=== PATIENT | male | born 1970 | race Caucasian/White ===

== ENCOUNTER 2023-02-27 08:48 | Outpatient (AMB) | payer OTHER, SELFPAY ==
--- NOTE | 2023-02-27 08:56 | MHC.OFFVIS ---
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 The patient did undergo low back surgery by Dr. Fernandes several years ago. The patient states that prior to that surgery he had weakness in his right leg. He states that the weakness on his right side did resolve following the surgery. Today he complains of progressively worsening left leg pain and weakness. His symptoms have gotten worse over the last year in spite of continued non operative treatments. He has done physical therapy which aggravated his symptoms. He has also tried Tylenol, anti-inflammatory medicines as well as a buprenorphine patch and oxycodone which gave him minimal relief. The patient states that he aggravated his leg and back earlier this year while playing soccer with his 18-year-old daughter. Allergies Penicillins Allergy (Verified 02/27/23 09:04) Unknown Medication List - Last Reconciled 02/27/23 by Mart Garcia MD albuterol sulfate 90 mcg/actuation 2 puffs inhalation Q4-6H PRN allopurinol mg PO buprenorphine 7.5 mcg/hour 1 patch transdermal QWEEK cholecalciferol (vitamin D3) PO fluticasone propion-salmeterol 500-50 mcg/dose (Wixela Inhub) inhalation losartan 100 mg PO DAILY montelukast 10 mg PO DAILY omeprazole 20 mg PO BID oxycodone 5 mg PO Q8H PRN sildenafil 100 mg PO DAILY PRN testosterone cypionate mg IM PFSH Medical History (Updated 02/27/23 @ 09:33 by Mart Garcia MD) Acid reflux Asthma Hypertension Lesion of throat Sleep apnea Social History (Updated 02/27/23 @ 09:10 by Raquel Nathan Abeba) Patient Tobacco Use Status: Never used Tobacco Current occupational status: disabled Physical Exam Vital Signs: BMI result Body Mass Index 45.8 Const Other: Well-nourished well-developed very friendly male awake alert and oriented x3 in no acute distress Back/Spine/Pelvis Other: Low back examination shows left-sided paraspinal muscle tenderness, pain with range of motion, positive straight leg raise test on the left at 70 degrees, 4/5 strength with testing of his left hip flexors and knee extensors when compared to 5/5 strength on his right side Extrem Other: Bilateral lower extremity examination shows good capillary refill, no skin lesions noted, normal sensation light touch Left knee examination shows a minimal effusion, minimal crepitus with range of motion, tenderness along his medial and lateral joint lines, no palpable defect over his hamstring insertions, positive Lenin's test Results Reviewed Results Reviewed: X-rays of the patient's lumbar spine taken today show mild to moderate diffuse degenerative disc disease, no acute bony abnormalities X-rays of the patient's left knee show mild joint space narrowing, no acute bony abnormalities Assessment & Plan Assessment & Plan (1) Low back pain: Code(s): M54.50 - Low back pain, unspecified Plan: Ms. Tracy presents with progressively worsening low back pain which radiates down his left leg possibly due to lumbar stenosis or a disc herniation. The patient states that he is not able to tolerate an MRI because of his sleep apnea. I will see whether not an upright MRI is available within driving distance. Otherwise we will likely proceed with a CT scan of his lumbar spine although the details will not be as good as an MRI. I will see the patient back following the imaging study to further discuss the findings and treatment options. The patient also has intermittent left knee pain possibly due to strain of his hamstrings tendons versus possible meniscus tearing. At this point the patient's knee pain is tolerable to him. We will address this further in the future if needed. Feel free to call me at any time should questions regarding his orthopedic management arise. Thank very much for asking me to see this very friendly gentleman. I spent 24 minutes in reviewing the patient's records and imaging studies, seeing the patient and documenting in the medical record. (2) Left knee pain: Code(s): M25.562 - Pain in left knee Plan Mr. Tracy I spent 22 minutes in reviewing the patient's records and imaging studies, seeing the patient and documenting in the medical record. Orders: Orders XR knee LT 3V Today M25.562 - Pain in left knee XR lumbar spine 2-3V Today M54.50 - Low back pain, unspecified Coding Level of Care Code New Pt Level 2 (77733) Diagnoses Low back pain M54.50 Left knee pain M25.562
[2023-02-27 09:04] VITALS: BMI 45.8
== END 2023-02-27 09:50 | disposition home or self-care (01) ==
PROVIDERS: Visit Provider Orthopaedic Surgery
DX: M54.50 Low back pain, unspecified (principal); M25.562 Pain in left knee
CPT/HCPCS: 99202

== ENCOUNTER 2023-02-27 08:48 | Outpatient (REF) | payer OTHER, SELFPAY ==
--- NOTE | ~2023-02-27 | XR_ITS ---
EXAMINATION: XR KNEE, LEFT CLINICAL INFORMATION: Left knee pain. COMPARISON: None available. TECHNIQUE: Three views of the left knee. FINDINGS: Alignment is anatomic. Joint spaces are maintained. No displaced fracture. No significant joint effusion. XR/XR knee LT 3V IMPRESSION: No acute abnormality.
--- NOTE | ~2023-02-27 | XR_ITS ---
EXAMINATION: XR LUMBOSACRAL SPINE CLINICAL INFORMATION: Low back pain. COMPARISON: None available. TECHNIQUE: Two views of the lumbosacral spine. FINDINGS: There are 5 nonrib-bearing lumbar vertebral bodies. Normal sagittal alignment. Vertebral body heights and intervertebral disc spaces are maintained. There is facet hypertrophy at L5-S1. Sacroiliac joints are intact. XR/XR lumbar spine 2-3V IMPRESSION: No acute abnormality.
== END 2023-02-27 08:49 | disposition home or self-care (01) ==
LOC: HO.HOSX 08:48
PROVIDERS: Visit Provider Orthopaedic Surgery
DX: M54.50 Low back pain, unspecified (principal); M25.562 Pain in left knee; M79.605 Pain in left leg; Z79.899 Other long term (current) drug therapy
CPT/HCPCS: 72100; 73562; 99202

== ENCOUNTER 2023-03-12 13:54 | Outpatient (REF) | payer OTHER, SELFPAY ==
--- NOTE | ~2023-03-12 | CT_ITS ---
EXAMINATION: CT LUMBAR SPINE WITHOUT CONTRAST CLINICAL INFORMATION: Low back pain COMPARISON: None TECHNIQUE: A multidetector CT acquisition of the lumbar spine is obtained without contrast. This CT examination was performed using dose optimization techniques as appropriate, variously including the following: *Automated exposure control *Adjustment of mA and/or kV according to patient size (this includes techniques or standardized protocols for targeted exams where dose is matched to indication/reason for exam; i.e. extremities or head) *Use of iterative reconstruction technique DLP: 1915 mGy-cm FINDINGS: Normal lumbar lordosis is preserved. Trace retrolisthesis at L3-L4. There is mild chronic anterior wedging of the T12 vertebral body. There is no suspicious osseous lesion. There is mild T11-T12 disc height loss. Lumbar intervertebral disc heights are preserved. Ossification to the left of midline of the L2 spinous process, presumably a nonunited secondary ossification center, less likely sequelae of prior trauma. Please not canal patency is not well assessed on this examination due to inherent limitations of CT without intrathecal contrast. Within these limitations, multilevel degenerative changes with level by level detail are as follows: T11-T12: Shallow annular disc bulge and advanced hypertrophic right greater than left facet arthrosis impinging upon the right dorsolateral thecal sac. No overt spinal canal narrowing. Moderate right and mild left neural foraminal narrowing with likely impingement upon the exiting right T11 nerve root. T12-L1: No spinal canal or neural foraminal stenosis. L1-L2: Mild bilateral facet arthrosis. No spinal canal or neural foraminal stenosis. L2-L3: Moderate bilateral facet arthrosis with ligamentum flavum thickening. No spinal canal stenosis. Minimal neural foraminal encroachment. L3-L4: Annular disc bulge with moderate bilateral facet arthrosis and ligamentum flavum thickening with incidental Mario ossicles, more pronounced on the left. Apparent mild spinal canal narrowing and subarticular zone stenosis. Moderate to severe left and moderate right neural foraminal stenosis with mass effect on the exiting left greater than right L3 nerve roots. L4-L5: Annular disc bulge with advanced hypertrophic bilateral facet arthrosis with bilateral periarticular ossification and vacuum disc phenomenon. Ossified synovial cyst along the anteroinferior margin of the left facet joint measuring 4 mm. At least mild spinal canal narrowing and bilateral subarticular zone stenosis. Moderate bilateral neural foraminal stenosis with mass effect along the bilateral exiting L4 nerve roots. L5-S1: Shallow annular disc bulge with superimposed suspected broad-based left paracentral/subarticular disc protrusion, and moderate bilateral facet arthrosis. At least mild spinal canal narrowing and asymmetric left subarticular zone stenosis with impingement on the traversing left S1 nerve root (image 333, series 6) and milder mass effect along the traversing right S1 nerve root. Minimal bilateral neural foraminal encroachment. No significant abnormalities of the paraspinal musculature. Limited evaluation of the intra-abdominal structures without significant abnormalities. Mild scattered calcific atherosclerotic disease. The abdominal aorta is of normal contour and caliber. Osseous spurring along the ventral sacroiliac joints with vacuum phenomenon. CT/CT lumbar spine wo IV con IMPRESSION: Multilevel lumbar spondylosis. Within the limitations of CT without intrathecal contrast, there is at least mild spinal canal narrowing from L3-L4 through L5-S1. Varying degrees of subarticular and neural foraminal stenosis with mass effect on the traversing and exiting nerve roots, as discussed above. Of note, there is impingement upon the traversing left S1 nerve root at L5-S1 and moderate to severe left neural foraminal stenosis at L3-L4 and moderate bilateral L4-L5 and right L3-L4 neural foraminal stenosis..
== END 2023-03-12 13:55 | disposition home or self-care (01) ==
LOC: HO.CT 13:54
PROVIDERS: PCP Family Medicine; Visit Provider Orthopaedic Surgery
DX: M47.816 Spondylosis without myelopathy or radiculopathy, lumbar region (principal); M54.50 Low back pain, unspecified; M79.606 Pain in leg, unspecified; M48.54XA Collapsed vertebra, not elsewhere classified, thoracic region, initial encounter for fracture
CPT/HCPCS: 72131

== ENCOUNTER 2024-04-06 09:33 | Outpatient (REF) | payer OTHER, SELFPAY ==
--- NOTE | ~2024-04-06 | XR_ITS ---
EXAMINATION: XR KNEE, LEFT CLINICAL INFORMATION: Left knee pain. COMPARISON: 02/27/2023. TECHNIQUE: Three views of the left knee. FINDINGS: Mild patellofemoral compartment osteoarthritis with small marginal osteophytes. Meniscal chondrocalcinosis. No fracture. No joint effusion. No significant change. XR/XR knee LT 3V IMPRESSION: Mild patellofemoral compartment osteoarthritis with meniscal chondrocalcinosis. No significant change. Electronically signed by: Gigi Alfred MD 04/12/2024 10:45 AM EDT
== END 2024-04-06 09:34 | disposition home or self-care (01) ==
LOC: HO.HOSX 09:33
PROVIDERS: Visit Provider Orthopaedic Surgery
DX: M17.12 Unilateral primary osteoarthritis, left knee (principal); M11.262 Other chondrocalcinosis, left knee
CPT/HCPCS: 20610; 73562; 99212; J1010

== ENCOUNTER 2024-04-06 10:11 | Outpatient (AMB) | payer OTHER, SELFPAY ==
--- NOTE | 2024-04-06 10:12 | MHC.OFFVIS ---
Vital Signs 04/06/24 10:15 Height 6 ft 1 in Weight 306 lb BMI 40.4 Intake Visit Reasons: OV left knee pain Intake Note: Patient is a 53 year old male who presents with complaints of progressively worsening left knee pain and giving way. The patient states that he injured his left knee approximately 2 years ago while playing in a [employer] soccer event. He was playing goalie and dove for a ball. He twisted his knee and had acute onset of pain along the medial aspect of his knee. Did have 1 cortisone injection given into his left knee several months ago which gave him only temporary relief. He has tried Tylenol and anti-inflammatory medicines which gave him minimal relief. He states that his left knee will give out several times per day. He has done physical therapy exercises which aggravated his pain. He has failed the last 6 weeks of conservative treatment. Allergies Penicillins Allergy (Verified 04/06/24 10:16) Unknown Medication List - Last Reconciled 04/06/24 by Mart Garcia MD albuterol sulfate 90 mcg/actuation 2 puffs inhalation Q4-6H PRN allopurinol mg PO buprenorphine 7.5 mcg/hour 1 patch transdermal QWEEK cholecalciferol (vitamin D3) PO fluticasone propion-salmeterol 500-50 mcg/dose (Wixela Inhub) inhalation losartan 100 mg PO DAILY montelukast 10 mg PO DAILY omeprazole 20 mg PO BID oxycodone 5 mg PO Q8H PRN sildenafil 100 mg PO DAILY PRN testosterone cypionate mg IM PFSH Medical History (Updated 03/04/23 @ 09:29 by Mart Garcia MD) Lesion of throat Hypertension Sleep apnea Acid reflux Asthma Social History (Updated 02/27/23 @ 09:10 by Raquel Nathan [facility]) Patient Tobacco Use Status: Never used Tobacco Current occupational status: disabled Physical Exam Vital Signs: BMI result Body Mass Index 40.4 Const Other: Well-nourished well-developed very friendly male awake alert and oriented x3 in no acute distress Extrem Other: Bilateral lower extremity examination shows good capillary refill, no skin lesions noted, normal sensation light touch Left knee examination shows a moderate effusion, minimal crepitus with range of motion, tenderness along his medial joint line, positive Lenin's test, no instability Office Procedures Joint Injection/Aspiration Joint Injection/Aspiration Primary Site: left knee Prep: site was prepped using aseptic technique Injected: 40 mg of, DepoMedrol and 1% plain lidocaine Procedure: The patient tolerated the procedure well Coding 04300 - Large joint Procedure code (CPT) selection complete Results Reviewed Results Reviewed: Standing full weight-bearing x-rays of the patient's left knee show mild diffuse joint space narrowing, no acute bony abnormalities Assessment & Plan Assessment & Plan (1) Left knee pain: Code(s): M25.562 - Pain in left knee Category: Medical Plan Mr. Tracy presents with progressively worsening left knee pain and swelling most likely due to a tear of his medial meniscus. I had a lengthy discussion with the patient regarding the treatment options. The risks and benefits of a left knee cortisone injection were discussed at length with the patient. The patient wished to proceed. Prior to the injection I aspirated 10 cc of clear fluid from his left knee. The patient tolerated the injection well. I will also send the patient for an MRI of his left knee to further evaluate the status of his medial meniscus. I will see him back once the MRI is completed to discuss the findings and treatment options. Feel free to call me at any time should questions regarding his orthopedic management arise. I spent 20 minutes in reviewing the patient's records and imaging studies, seeing the patient and documenting in the medical record. Orders: Orders XR knee LT 3V Today M25.562 - Pain in left knee MR knee LT wo con Today M25.562 - Pain in left knee AMB Joint Injection/Aspiration Today M25.562 - Pain in left knee Coding Level of Care Code Est Pt Level 3 (67652) Diagnoses Left knee pain M25.562 CPT Codes Coding - 46362 Large joint: 01537 - Large joint ([id number])
[2024-04-06 10:15] VITALS: BMI 40.4
== END 2024-04-06 10:40 | disposition home or self-care (01) ==
PROVIDERS: PCP Family Medicine; Visit Provider Orthopaedic Surgery
DX: M25.562 Pain in left knee (principal)
CPT/HCPCS: 20610; 99213

== ENCOUNTER 2024-05-10 09:10 | Outpatient (AMB) | payer OTHER, SELFPAY ==
[2024-05-10 09:11] VITALS: BMI 40.4
--- NOTE | 2024-05-10 09:11 | MHC.OFFVIS ---
Vital Signs 05/10/24 09:11 Height 6 ft 1 in Weight 306 lb BMI 40.4 Intake Visit Reasons: Left knee pain and giving way Intake Note: Patient is a 53 year old male who presents with complaints of progressively worsening left knee pain and giving way. The patient states that he injured his left knee approximately 2 years ago while playing in a [employer] soccer event. He was playing goalie and dove for a ball. He twisted his knee and had acute onset of pain along the medial aspect of his knee. Did have 1 cortisone injection given into his left knee several months ago which gave him only temporary relief. He has tried Tylenol and anti-inflammatory medicines which gave him minimal relief. He states that his left knee will give out several times per day. He has done physical therapy exercises which aggravated his pain. He has failed the last 6 weeks of conservative treatment. The patient states that he was not able to tolerate the MRI machine for his left knee MRI. Allergies Penicillins Allergy (Verified 04/06/24 10:16) Unknown Medication List - Last Reconciled 05/11/24 by Mart Garcia MD albuterol sulfate 90 mcg/actuation 2 puffs inhalation Q4-6H PRN allopurinol mg PO buprenorphine 7.5 mcg/hour 1 patch transdermal QWEEK cholecalciferol (vitamin D3) PO fluticasone propion-salmeterol 500-50 mcg/dose (Wixela Inhub) inhalation losartan 100 mg PO DAILY montelukast 10 mg PO DAILY omeprazole 20 mg PO BID oxycodone 5 mg PO Q8H PRN sildenafil 100 mg PO DAILY PRN testosterone cypionate mg IM PFSH Medical History Lesion of throat Hypertension Sleep apnea Acid reflux Asthma Social History Patient Tobacco Use Status: Never used Tobacco Current occupational status: disabled Physical Exam Vital Signs: BMI result Body Mass Index 40.4 Const Other: Well-nourished well-developed very friendly male awake alert and oriented x3 in no acute distress Extrem Other: Bilateral lower extremity examination shows good capillary refill, no skin lesions noted, normal sensation light touch Left knee examination shows a minimal effusion, mild crepitus with range of motion, tenderness along his medial and lateral joint lines, positive Lenin's test, no instability Results Reviewed Results Reviewed: Standing full weight-bearing x-rays of the patient's left knee show mild diffuse joint space narrowing, no acute bony abnormalities Assessment & Plan Assessment & Plan (1) Tear of medial meniscus of left knee: Code(s): S83.242A - Other tear of medial meniscus, current injury, left knee, initial encounter Category: Medical Plan Mr. Tracy presents with progressively worsening left knee pain and mechanical symptoms most likely due to tearing of his medial and lateral menisci. I had a lengthy discussion with the patient regarding the treatment options. At this point he has failed continued non operative treatments. The risks and benefits of left knee arthroscopic surgery were discussed at length with the patient. The patient wishes to proceed with surgery. Surgery will most likely involve left knee diagnostic arthroscopy with arthroscopic partial medial and lateral meniscectomies. The patient will be scheduled for next available date. He will follow-up as instructed. Feel free to call me at any time should questions regarding his orthopedic management arise. I spent 21 minutes in reviewing the patient's records and imaging studies, seeing the patient and documenting in the medical record. Coding Level of Care Code Est Pt Level 3 (58425) Complex EM visit Add On G2211 Diagnoses Tear of medial meniscus of left knee S83.242A
== END 2024-05-10 09:41 | disposition home or self-care (01) ==
PROVIDERS: PCP Family Medicine; Visit Provider Orthopaedic Surgery
DX: S83.242A Other tear of medial meniscus, current injury, left knee, initial encounter (principal)
CPT/HCPCS: 99213; G2211

== ENCOUNTER → 2024-05-10 09:10 | Outpatient (BNVA) | payer OTHER, SELFPAY | PROVIDERS: PCP Family Medicine; Visit Provider Orthopaedic Surgery | DX: S83.242A Other tear of medial meniscus, current injury, left knee, initial encounter (principal); X58.XXXA Exposure to other specified factors, initial encounter; Y93.9 Activity, unspecified; Y92.9 Unspecified place or not applicable; Y99.9 Unspecified external cause status | CPT/HCPCS: 99212 ==

== ENCOUNTER 2024-05-16 05:53 | Day surgery (SDC) | payer OTHER, SELFPAY ==
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
[2024-05-16] VITALS (12 sets, daily range): BP systolic 124–173; BP diastolic 67–98; PULSE 69–96; RESP 16; TEMP 36.6–37.2; O2SAT 96; BMI 43.6
[2024-05-16] MEDS: Lactated Ringers 1,000 ML 100 ML IVCONT (06:37)
--- NOTE | 2024-05-16 06:38 | ECG_ITS ---
Test Reason : BBB Blood Pressure : / mmHG Vent. Rate : 065 BPM Atrial Rate : 065 BPM P-R Int : 156 ms QRS Dur : 154 ms QT Int : 476 ms P-R-T Axes : 030 -08 134 degrees QTc Int : 495 ms Normal sinus rhythm Left bundle branch block Abnormal ECG No previous ECGs available Referred By: Alena Noel Electronically Signed By:JASWANT MARCIAL
[2024-05-16] MEDS: fentaNYL citrate/PF 100 MCG/2 ML VIAL 50 MCG IVPUSH ×3 (09:15→09:30)
--- NOTE | 2024-05-16 09:16 | PM.OP ---
Brief Operative Note Date of Service: 05/16/24 Pre-op diagnosis: Left knee medial meniscus tear, left knee degenerative joint disease Post-op diagnosis: same Procedure: Left knee diagnostic arthroscopy with left knee arthroscopic partial medial meniscectomy, left knee arthroscopic chondroplasty of the undersurface of the patella as well as the medial femoral condyle Implants: none Surgeon: Mart Garcia MD Anesthesia: GETA Was an Manager Customer Service used for this Procedure?: No Estimated blood loss (mL): 10 Pathology: none sent Condition: stable Disposition: PACU
--- NOTE | 2024-05-16 09:17 | P.OP_ITS ---
Operative Note Operative Note Date of Service: 05/16/24 Narrative: After the patient was identified as Donell Tracy and his left knee was initialed by myself they were brought to the operating room where general anesthesia was induced by the anesthesiologist in routine fashion. Because of the patient's allergy to penicillins he was given 900 mg of IV clindamycin preoperatively for infection prophylaxis. The patient's left lower extremity was prepped and draped in sterile fashion. A formal time-out was completed. Marcaine was injected into the planned incision sites as well as the patient's left knee joint. A #11 scalpel blade was used to make an anterolateral portal 1 cm proximal to the joint line and 1 cm lateral to the patellar tendon. Blunt trocar technique was used to enter the suprapatellar pouch with the knee in extension. Diagnostic arthroscopy showed multiple bands of thickened plica which would be excised at the end of the procedure. There were no loose bodies or abnormalities found in either the medial or lateral gutters. The articular surface of the patella showed diffuse grades 1 and 2 degenerative changes. The trochlear groove articular surface showed diffuse grade 1 degenerative changes. The patient's knee was flexed to 45 degrees and a valgus force was placed upon it. The medial compartment was entered. An anteromedial portal was made 1 cm proximal to the joint line and 1 cm medial to the patellar tendon. Probing of the medial meniscus showed a radial tear of the posterior horn. A partial medial meniscectomy was performed using the arthroscopic shaver. Following the partial meniscectomy the remainder of the meniscus tissue was stable. There were diffuse grades 1 and 2 degenerative changes of the medial femoral condyle as well as grade 1 degenerative changes of the medial tibial plateau. The articular surface of the medial femoral condyle was then made smooth using the arthroscopic shaver. The articular surface of the medial tibial plateau was already smooth so no chondroplasty was indicated. The patient's knee was placed into a neutral position. There was no injury to the anterior cruciate ligament. The patient's knee was then placed in the figure of 4 position and the lateral compartment was entered. There was no evidence of lateral meniscus tearing. There were minimal degenerative changes of the lateral femoral condyle and lateral tibial plateau. The patient's knee was once again brought into exte nsion and the suprapatellar pouch was entered. The arthroscopic shaver and the ArthroCare Wand were used to excise the thickened bands of plica. The undersurface of the patella was then made smooth using the arthroscopic shaver. The articular surface of the trochlear groove was already smooth so no chondroplasty was indicated. The knee joint was irrigated and then drained. All arthroscopic instruments were removed. The 2 portals were closed with 3-0 nylon interrupted suture. The knee joint was injected with Marcaine. Dry sterile dressing and Doron bandages were placed over the patient's knee. The patient was awoken and extubated in the operating room. The patient was transferred to the recovery room in stable condition.
== END 2024-05-16 10:57 | disposition home or self-care (01) ==
PROVIDERS: PCP Family Medicine; Visit Provider Orthopaedic Surgery
PROC: (CPT 29870; principal; 2024-05-16 07:30)
DX: S83.242A Other tear of medial meniscus, current injury, left knee, initial encounter (principal); M17.12 Unilateral primary osteoarthritis, left knee; M25.362 Other instability, left knee; M67.52 Plica syndrome, left knee; X50.1XXA Overexertion from prolonged static or awkward postures, initial encounter; Y93.66 Activity, soccer; Y92.322 Soccer field as the place of occurrence of the external cause; Y99.8 Other external cause status; I10 Essential (primary) hypertension; J45.909 Unspecified asthma, uncomplicated; G47.30 Sleep apnea, unspecified; J39.2 Other diseases of pharynx; Z79.51 Long term (current) use of inhaled steroids; Z79.899 Other long term (current) drug therapy; Z88.0 Allergy status to penicillin; Z98.890 Other specified postprocedural states
CPT/HCPCS: 29881; 93005; J0131; J0171; J0736; J1100; J1885; J2003; J2405; J2704; J2795; J3010

== ENCOUNTER → 2024-05-16 05:53 | Outpatient (BNV) | payer OTHER, SELFPAY | PROVIDERS: PCP Family Medicine; Visit Provider Orthopaedic Surgery | DX: S83.242A Other tear of medial meniscus, current injury, left knee, initial encounter (principal) | CPT/HCPCS: 29881 ==

== ENCOUNTER 2024-06-01 09:22 | Outpatient (AMB) | payer OTHER, SELFPAY ==
--- NOTE | 2024-06-01 09:23 | A.OFFVIS_ITS ---
Intake Visit Reasons: PO Left knee 05/16/24 DR Wilson Note: Donell is a 54 year old male who presents for his 1st postoperative appointment after undergoing left knee arthroscopic surgery on 05/16/2024. The patient reports mild intermittent discomfort in his left knee. He denies any fevers or chills. He continues with his home stretching program. Allergies Penicillins Allergy (Unknown, Verified 06/01/24 09:28) CHILDHOOD Medication List - Last Reconciled 06/02/24 by Mart Garcia MD albuterol sulfate 90 mcg/actuation 2 puffs inhalation Q4-6H PRN allopurinol 100 mg PO USEASDIRECTD cholecalciferol (vitamin D3) 2,000 mcg PO DAILY fluticasone propion-salmeterol 500-50 mcg/dose (Wixela Inhub) 1 inh inhalation DAILY losartan 100 mg PO DAILY montelukast 10 mg PO DAILY naproxen 500 mg PO BID omeprazole 20 mg PO BID oxycodone 5 mg PO Q6H PRN 1 week pregabalin 100 mg PO BID sildenafil 100 mg PO DAILY PRN PFSH Medical History Lesion of throat Hypertension Sleep apnea Acid reflux Asthma Surgical History History of surgery of head S/P nasal surgery H/O carpal tunnel repair H/O shoulder surgery H/O elbow surgery History of ankle surgery Social History Are you a primary customer care specialist to a significant other at home: No Do you presently have visiting nurse or other home services: No Patient Tobacco Use Status: Never used Tobacco Current occupational status: disabled Physical Exam Extrem Other: Left knee examination shows that the surgical incisions are well healed, no erythema, minimal discomfort with range of motion, no instability Assessment & Plan Assessment & Plan (1) Left knee pain: Code(s): M25.562 - Pain in left knee Category: Medical Plan Donell is doing very well after undergoing left knee arthroscopic surgery on 05/16/2024. His sutures were removed and Steri-Strips placed over his incisions. He will gradually progress to activities as tolerated. He will contact me prior to his follow-up appointment in 6-8 weeks should any questions or concerns arise. Feel free to call me at any time should questions regarding his orthopedic management arise. Coding Level of Care Code Global (79987) Diagnoses Left knee pain M25.562
== END 2024-06-01 09:44 | disposition home or self-care (01) ==
PROVIDERS: PCP Family Medicine; Visit Provider Orthopaedic Surgery
DX: M25.562 Pain in left knee (principal)
CPT/HCPCS: 99024

== ENCOUNTER → 2024-06-01 09:22 | Outpatient (BNVA) | payer OTHER, SELFPAY | PROVIDERS: PCP Family Medicine; Visit Provider Orthopaedic Surgery | DX: M25.562 Pain in left knee (principal) | CPT/HCPCS: 99212 ==

== ENCOUNTER 2024-08-18 09:39 | Outpatient (AMB) | payer OTHER, SELFPAY ==
--- NOTE | 2024-08-18 09:48 | A.OFFVIS_ITS ---
Intake Visit Reasons: Left knee pain Intake Note: Donell is a 54 year old male who presents with complaints of left knee pain. The patient describes his pain as sharp in nature. He did undergo left knee arthroscopic surgery last year. He got only mild relief from that procedure. He has failed the last 3 months of conservative treatment which has included Tylenol, anti-inflammatory medicines and physical therapy exercises. He has had multiple cortisone injections in the past. The most recent injection gave him minimal relief. The patient states that his left knee pain is now interfering with his activities of daily living and his ability to sleep well through the night. Allergies Penicillins Allergy (Unknown, Verified 08/18/24 09:49) CHILDHOOD Medication List - Last Reconciled 08/18/24 by Mart Garcia MD albuterol sulfate 90 mcg/actuation 2 puffs inhalation Q4-6H PRN allopurinol 100 mg PO USEASDIRECTD cholecalciferol (vitamin D3) 2,000 mcg PO DAILY fluticasone propion-salmeterol 500-50 mcg/dose (Wixela Inhub) 1 inh inhalation DAILY losartan 100 mg PO DAILY montelukast 10 mg PO DAILY naproxen 500 mg PO BID omeprazole 20 mg PO BID pregabalin 100 mg PO BID sildenafil 100 mg PO DAILY PRN PFSH Medical History Lesion of throat Hypertension Sleep apnea Acid reflux Asthma Surgical History History of surgery of head S/P nasal surgery H/O carpal tunnel repair H/O shoulder surgery H/O elbow surgery History of ankle surgery Social History Are you a primary career technical counselor to a significant other at home: No Do you presently have visiting nurse or other home services: No Patient Tobacco Use Status: Never used Tobacco Current occupational status: disabled Physical Exam Const Other: Well-nourished well-developed very friendly male awake alert and oriented x3 in no acute distress Extrem Other: Bilateral lower extremity examination shows good capillary refill, no skin lesions noted, normal sensation light touch Left knee examination shows a mild effusion, palpable crepitus with range of motion, pain with range of motion, no instability Results Reviewed Results Reviewed: X-rays of the patient's left knee show joint space narrowing, subchondral sclerosis, no acute bony abnormalities Assessment & Plan Assessment & Plan (1) Left knee pain: Code(s): M25.562 - Pain in left knee Category: Medical Plan Mr. Tracy presents with left knee pain due to osteoarthritis. I had a lengthy discussion with the patient regarding the treatment options. He wishes to hold off on total knee replacement surgery for as long as possible. I agree with this plan. He has not gotten good relief from cortisone injections in the past. Thus, I will see whether or not his insurance company will cover a viscosupplementation injection. I will see him back once the injection is available. Feel free to call me at any time should questions regarding his orthopedic management arise. I spent 20 minutes in reviewing the patient's records and imaging studies, seeing the patient and documenting in the medical record. Coding Level of Care Code Est Pt Level 3 (15163) Complex EM visit Add On G2211 Diagnoses Left knee pain M25.562
--- OUTSIDE RECORDS SUMMARY | 2024-08-18 09:55 | XMS_ITS | Encounter Summary ---
Author Name [facility] [place] [facility] [place] Address [address] [place] [address] Care Team Providers Care Mime Artist Name Role Phone EHSAN OVALLES Primary Care Provider Unavailabl e Insurance Providers: All historical and current Section Date Range: From patient's date of to the date document was created. This section includes the names of all active insurance providers for the patient. Insurance Provider Type of Coverage Plan Name Start of Policy Coverage End of Policy Coverage Group Number Member ID Insurance Provider's Telephone Number Policy Winston's Name Patient's Relationship to Policy Winston MEDICARE (WNR) MEDICARE (M) PART A December 08, 2013 PART A [id number] [facility] [phone] BRIGID RAMOS PATIENT MEDICARE (WNR) MEDICARE (M) PART A December 08, 2013 PART A [id number] GARRICK DAMICOKARLYBRIGID Rhina PATIENT Selected Encounter This section includes the information on record at [place] for the Encounter. Date/Time Encounter Type Encounter Description Reason Provider Source Jul 20, 2024 11:55 AM COLLJ & INTERPJ DATA EA 30 D TELEPHONE/MEDICIN E ICD-10-CM G47.30 Sleep apnea, unspecified KEN NGUYEN Martin Encounter Template Text not used by [place] Assessments - Encounter Diagnoses This section includes the primary and secondary diagnoses documented for the Encounter. Date/Time Primary/Secondary Diagnosis Diagnosis Name Provider Source Jul 20, 2024 11:55 AM PRIMARY Sleep apnea, unspecified KEN NGUYEN [facility] Plan of Treatment: Future Appointments (+ 6 months) and Future Tests (+/- 45 days) The Plan of Treatment section includes future care activities for the patient from [facility] [place] [facility]. This section includes future appointments and future orders which are active, pending or scheduled. Future Appointments This section includes appointments that were scheduled to occur 6 months from the date of the Encounter, up to a maximum of 20 appointments. The data comes from all [facility]. Appointment Date/Time Appointment Type Appointme nt Facility Name Jul 27, 2024 02:30 PM AMBULATORY - REHAB MEDICIN E [facility] Aug 30, 2024 11:00 AM AMBULATORY - MEDICINE [facility] Sep 14, 2024 01:00 PM AMBULATORY - REHAB MEDICIN E [facility] Active, Pending, and Scheduled Orders This section includes a listing of several types of active, pending, and scheduled orders, including clinic medications orders, diagnostic test orders, procedure orders and consult orders; where the start date of the order is 45 days before the date of the Encounter or 45 days after the date of theEncounter. The data comes from all [facility]. Test Date/Time Test Type Test Details Facility Name Jul 05, 2024 09:45 AM Consult Order COMMUNITY CARE-ACUPUNCTURE Cons Shipping Clerk [facility] Aug 31, 2024 12:00 AM Laboratory - Chemi stry Order LIPID PANEL FASTING BLOOD (SST-SERUM) [facility] Aug 31, 2024 12:00 AM Laboratory - Chemi stry Order LIVER FUNCTION BLOOD (SST-SERUM) [facility] Aug 31, 2024 12:00 AM Laboratory - Chemi stry Order BASIC METABOLIC PANEL (fasting) BLOOD (SST-SERUM) [facility] Social History: Smoking Status (Most current) and Tobacco Use (All prior to encounter date) This section includes the most current, and the historical, smoking and tobacco- related health factors from the [place] facility where the Encounter took place. Current Smoking Status This section includes the most current smoking, or tobacco-related health factor, from the [place] facility where the Encounter took place. Date/Time Current Smoking Status Comment Facil ity May 12, 2023 10:46 AM VA-TOBACCO NEVER USED [facility] Tobacco Use History This section includes a history of the smoking, or tobacco-related health factors, that were collected on or before the date of the Encounter. The data comes from the [place] facility where the Encounter took place. Date/Time Smoking Status/Tobacco Use Comment Trisha renae Oct 20, 2015 10:30 AM LIFETIME NON-TOBACCO USER [facility] Sep 19, 2009 11:13 AM LIFETIME NON-TOBACCO USER [facility] Advance Directives: All historical and current Section Date Range: From patient's date of to the date document was created. This section includes ALL of a patient's completed or amended [place] Advance and Rescinded Directives. The entries below indicate that a directive exists for the patient, but an actual copy is not included with this document. The data comes from all [place] facilities. Date Advance Directives Provider Source Mar 22, 2018 ADVANCE DIRECTIVE JASWANT DICKINSON [facility] Radiology Reports: +/- 30 days of the encounter Radiology Reports For cases when an order for radiology services may have been completed prior to the date of the Encounter, the report list includes the Radiology Reports that were completed up to 30 days before dateof the Encounter. For cases when an order for radiology services may have been completed after the date of the Encounter, the report list also includes the Radiology Reports that were completed up to30 days after date of the Encounter. The data comes from all [place] treatment facilities. Date/Time Radiology Report Provider Source Jul 27, 2024 02:52 PM FLUOROSCOPIC [place] NCE OF NEEDLE/SPINE: ODILIACOLBY [id number] -1970 M Exm Date: JUL 27, 2024@14:52 Req Phys: YAIR FALCON Loc: CWM/NO/MED REHAB/SPINE INJ (Re Img Loc: [facility]/BUILDING 1 Service: Unknown [place] [address] (Case 169 COMPLETE) FLUOROSCOPIC GUIDANCE OF NEEDLE/S(RAD Detailed) CPT:58277 Reason for Study: transforaminal epidural steroid injection Clinical History: Report Status: Verified Date Reported: JUL 27, 2024 Date Verified: JUL 27, 2024 [employer] E-Sig:/ES/GREG OLIVIER JR Report: Study: Pain injection of the lumbar spine. Findings: Fluoroscopic guidance was provided to Pain Management for interventional pain injection. No dictation provided for this study. Images captured for documentation only. Total fluoroscopy time used was 42.8 seconds. Total cumulative air kerma dose is 49.2 mGy. Impression: Fluoroscopic guidance for interventional pain injection. Primary Diagnostic Code: No immediate attention required Primary Interpreting Staff: GREG OLIVIER JR, Radiologist ([employer]) /GREG GAITAN JR [facility] Encounter Notes: All associated encounter notes This section contains the clinical notes associated to the Encounter. Date/Time Encounter Note(s) Provider Source Jul 20, 2024 11:55 AM SLEEP MEDICINE NOT E: LOCAL TITLE: CPAP CLINIC NOTE STANDARD TITLE: SLEEP MEDICINE NOTE DATE OF NOTE: JUL 20, 2024@11:55 ENTRY DATE: JUL 20, 2024@11:55:08 AUTHOR: KEN NGUYEN COSIGNER: URGENCY: STATUS: COMPLETED Patient diagnosed with sleep apnea data reviewed for Cpap renewal and supplies ordered from [facility]. [facility] uses the F30i FFM with the medium cushion. [employer] COMPLIANCE PROGRAM Patient APAP compliance data reviewed via the [employer] program for the last 90 days. SETTINGS: Apap 5 - [id number] TOTAL DAYS USED 89 DAYS USED > 4hrs 85 AVG USAGE 6 hours AVG PRESSURE [id number] LEAK 10 AHI: 0.3 Central 0 These results indicate [facility] is compliant. 's APAP Prescription will be renewed for 1 year. If pt has any questions or concerns regarding Apap, he/she can contact Respiratory at [phone] extension [phone]. /dheeraj/ KEN NGUYEN CRT RESPIRATORY THERAPIST Signed: 07/20/2024 12:06 KEN NGUYEN
--- OUTSIDE RECORDS SUMMARY | 2024-08-18 09:55 | XMS_ITS ---
Author Name [facility] [place] [facility] [place] [facility] [place] Address [address] [place] [address] Care Team Providers Care Braided Rug Maker Name Role Phone EHSAN OVALLES Primary Care [...] PART A December 08, 2013 PART A [id number] BRIGID RAMOS PATIENT MEDICARE (WNR) MEDICARE (M) PART A December 08, 2013 PART A [id number] [phone] BRIGID RAMOS PATIENT Selected Encounter This section includes the information on record at [place] for the Encounter. Date/Time Encounter Type Encounter Description Reason Pro vider Source Jul 20, 2024 08:22 AM Outpatient Encounter TELEPHONE PRIMARY CARE IHE Encounter Template Text not used by [place] Plan of Treatment: Future Appointments (+ 6 months) and Future Tests (+/- 45 days) The Plan of Treatment section includes future care activities for the patient from all [place] treatmentfacilities. This section includes future appointments and future orders which are active, pending or scheduled. Future Appointments This section includes appointments that were scheduled to occur 6 months from the date of the Encounter, up to a maximum of 20 appointments. The data comes from all [place] treatment facilities. Appointment Date/Time Appointment Type Appointme nt Facility Name Jul 27, 2024 02:30 PM AMBULATORY - REHAB MEDICIN E [facility] Aug 30, 2024 11:00 AM AMBULATORY - MEDICINE [facility] Sep 14, 2024 01:00 PM AMBULATORY - REHAB MEDICIN E [facility] Active, Pending, and Scheduled Orders This section includes a listing of several types of active, pending, and scheduled orders, including clinic medications orders, diagnostic test orders, procedure orders and consult orders; where the start date of the order is 45 days before the date of the Encounter or 45 days after the date of theEncounter. The data comes from all [facility]. Test Date/Time Test Type Test Details Facility Name Jul 05, 2024 09:45 AM Consult Order COMMUNITY CARE-ACUPUNCTURE Cons [employer]ber [facility] Aug 31, 2024 12:00 AM Laboratory - Chemi stry Order LIPID PANEL FASTING BLOOD (SST-SERUM) [facility] Aug 31, 2024 12:00 AM Laboratory - Chemi stry Order LIVER FUNCTION BLOOD (SST-SERUM) [facility] Aug 31, 2024 12:00 AM Laboratory - Chemi stry Order BASIC METABOLIC PANEL (fasting) BLOOD (SST-SERUM) [facility] Social History: Smoking Status (Most current) and Tobacco Use (All prior to encounter date) This section includes the most current, and the historical, smoking and tobacco- related health factors from the [place] facility where the Encounter took place. Current Smoking Status This section includes the most current smoking, or tobacco-related health factor, from the [place] facility where the Encounter took place. Date/Time Current Smoking Status Comment Facil ity May 12, 2023 10:46 AM VA-TOBACCO NEVER USED [facility] Tobacco Use History This section includes a history of the smoking, or tobacco-related health factors, that were collected on or before the date of the Encounter. The data comes from the [place] facility where the Encounter took place. Date/Time Smoking Status/Tobacco Use Comment F acility Oct 20, 2015 10:30 AM LIFETIME NON-TOBACCO USER [facility] Sep 19, 2009 11:13 AM LIFETIME NON-TOBACCO USER [facility] Advance Directives: All historical and current Section Date Range: From patient's date of to the date document was created. This section includes ALL of a patient's completed or amended [place] Advance and Rescinded Directives. The entries below indicate that a directive exists for the patient, but an actual copy is not included with this document. The data comes from all [place] facilities. Date Advance Directives Provider Source Mar 22, 2018 ADVANCE DIRECTIVE JASWANT DICKINSON [facility] Radiology Reports: +/- 30 days of [...] the Encounter. The data comes from all [place] treatment facilities. Date/Time Radiology Report Provider Source Jul 27, 2024 02:52 PM FLUOROSCOPIC [place] NCE OF NEEDLE/SPINE: ODILIACOLBY [id number] -1970 M Exm Date: JUL 27, 2024@14:52 Req Phys: FALCONYAIR BRYSON [facility] Loc: CWM/NO/MED REHAB/SPINE INJ (Re Img Loc: [facility]/BUILDING 1 Service: [place] [address] (Case 169 COMPLETE) FLUOROSCOPIC GUIDANCE OF NEEDLE/S(RAD Detailed) CPT:79005 Reason for Study: transforaminal epidural steroid injection Clinical History: Report Status: Verified Date Reported: JUL 27, 2024 Date Verified: JUL 27, 2024 Petroleum Geologist E-Sig:/ES/GREG OLIVIER JR Report: Study: Pain injection [...] Primary Interpreting Staff: GREG OLIVIER JR, Radiologist (Petroleum Geologist) /GREG GAITAN JR [facility] Encounter Notes: All associated encounter notes This section contains the clinical notes associated to the Encounter. Date/Time Encounter Note(s) Provider Source Jul 20, 2024 08:22 AM TELEPHONE ENCOUNTE R NOTE: LOCAL TITLE: TELEPHONE NOTE/SPECIALTY CLINIC STANDARD TITLE: TELEPHONE ENCOUNTER NOTE DATE OF NOTE: JUL 20, 2024@08:22 ENTRY DATE: JUL 20, 2024@08:22:06 AUTHOR: ROBERTO AVILA EXP COSIGNER: URGENCY: STATUS: COMPLETED [place] needs the following CPAP supplies mailed to his home address which has been confirmed as well as his primary phone: Hoses,masks,tanks and filters. /dheeraj/ ROBERTO AVILA ADVANCED VICE PRESIDENT OF COMPLIANCE Signed: 07/20/2024 08:30 Receipt Acknowledged By: 07/22/2024 07:07 /es/ HARMAN PETERS,TRACTOR EXPERT RESPIRATORY THERAPIST 07/21/2024 13:45 /es/ TERESA DAVILA RESPIRATORY THERAPIST 07/20/2024 11:54 /es/ KEN NGUYEN, HAND FORMER RESPIRATORY THERAPIST ROBERTO AVILA [facility]
--- OUTSIDE RECORDS SUMMARY | 2024-08-18 09:55 | XMS_ITS | Continuity of Care Document ---
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 [facility] [place] [facility] [address] [facility] [address] Performing Lab: [facility] [place] [facility] [address] [facility] [address] [facility] [place] [facility] AMPHETAMI BEATRIZ SCREEN PANEL CREATININE [MASS/VOLUM E] IN URINE 162.14 mg/dL 20 05/12 Specimen Type: URINE Comment: Urine with Cr <5 is diluted or substituted . Cr between 5 and 20 is very dilute. Urine with SG of 1.001 or less is diluted or substituted . SG of 1.003 or less is very dilute. Urine with a pH <3 or >11 has been adulterated and is unsuitable for testing by our current method. Urine with pH between 3 and 4 OR 10 and 11 may have been adulterated . Ordering Provider: LATRICE WILSON S Report Released Date/Time: May 11, 2024 03:52 PM Reporting Lab: [facility] [place] [facility] [address] [facility] [address] Performing Lab: [place] [facility] [place] [address] [address] [facility] [place] [facility] AMPHETAMI BEATRIZ SCREEN PANEL SPECIFIC GRAVITY OF URINE 1.021 1.003 - 1.020 05/12 H Specimen Type: URINE Comment: Urine with Cr <5 is diluted or substituted . Cr between 5 and 20 is very dilute. Urine with SG of 1.001 or less is diluted or substituted . SG of 1.003 or less is very dilute. Urine with a pH <3 or >11 has been adulterated and is unsuitable for testing by our current method. Urine with pH between 3 and 4 OR 10 and 11 may have been adulterated . Ordering Provider: LATRICE WILSON S Report Released Date/Time: May 11, 2024 03:52 PM Reporting Lab: [address] [address] Performing Lab: [address] [address] [facility] FENTANYL SCREEN PANEL FENTANYL [PRESENCE] IN URINE BY SCREEN METHOD NONE-D ETECTE Dng/mL 05/12 Specimen Type: URINE Comment: Urine with Cr <5 is diluted or substituted . Cr between 5 and 20 is very dilute. Urine with SG of 1.001 or less is diluted or substituted . SG of 1.003 or less is very dilute. Urine with a pH <3 or >11 has been adulterated and is unsuitable for testing by our current method. Urine with pH between 3 and 4 OR 10 and 11 may have been adulterated . FENTANYL CONFIRMATIO N NOT SENT BY LAB. Ordering Provider: LATRICE WILSON S Report Released Date/Time: May 11, 2024 03:52 PM Reporting Lab: [address] [address] Performing Lab: [address] [address] [facility] FENTANYL SCREEN PANEL PH OF URINE 5.6 [pH] 4 - 10 05/12 Specimen Type: URINE Comment: Urine with Cr <5 is diluted or substituted . Cr between 5 and 20 is very dilute. Urine with SG of 1.001 or less is diluted or substituted . SG of 1.003 or less is very dilute. Urine with a pH <3 or >11 has been adulterated and is unsuitable for testing by our current method. Urine with pH between 3 and 4 OR 10 and 11 may have been adulterated . FENTANYL CONFIRMATIO N NOT SENT BY LAB. Ordering Provider: LATRICE WILSON Report Released Date/Time: May 11, 2024 03:52 PM Reporting Lab: [address] [address] Performing Lab: [address] [address] [facility] FENTANYL SCREEN PANEL CREATININE [MASS/VOLUM E] IN URINE 156.70 mg/dL 05/12 Specimen Type: URINE Comment: Urine with Cr <5 is diluted or substituted . Cr between 5 and 20 is very dilute. Urine with SG of 1.001 or less is diluted or substituted . SG of 1.003 or less is very dilute. Urine with a pH <3 or >11 has been adulterated and is unsuitable for testing by our current method. Urine with pH between 3 and 4 OR 10 and 11 may have been adulterated . FENTANYL CONFIRMATIO N NOT SENT BY LAB. Ordering Provider: LATRICE WILSON Report Released Date/Time: May 11, 2024 03:52 PM Reporting Lab: [address] [address] Performing Lab: [address] [address] [facility] FENTANYL SCREEN PANEL SPECIFIC GRAVITY OF URINE 1.020 1.003 - 1.020 05/12 Specimen Type: URINE Comment: Urine with Cr <5 is diluted or substituted . Cr between 5 and 20 is very dilute. Urine with SG of 1.001 or less is diluted or substituted . SG of 1.003 or less is very dilute. Urine with a pH <3 or >11 has been adulterated and is unsuitable for testing by our current method. Urine with pH between 3 and 4 OR 10 and 11 may have been adulterated . FENTANYL CONFIRMATIO N NOT SENT BY LAB. Ordering Provider: LATRICE WILSON S Report Released Date/Time: May 11, 2024 03:52 PM Reporting Lab: [address] [address] Performing Lab: [address] [address] [facility] BENZODIAZ EPINES SCREEN PANEL BENZODIAZEP JOEL [PRESENCE] IN URINE BY SCREEN METHOD NONE-D ETECTE D - 200 05/12 Specimen Type: URINE Comment: Urine with Cr <5 is diluted or substituted . Cr between 5 and 20 is very dilute. Urine with SG of 1.001 or less is diluted or substituted . SG of 1.003 or less is very dilute. Urine with a pH <3 or >11 has been adulterated and is unsuitable for testing by our current method. Urine with pH between 3 and 4 OR 10 and 11 may have been adulterated . Ordering Provider: LATRICE WILSON S Report Released Date/Time: May 11, 2024 03:52 PM Reporting Lab: [address] [address] Performing Lab: [address] [address] [facility] BENZODIAZ EPINES SCREEN PANEL PH OF URINE 5.6 [pH] 4 - 10 05/12 Specimen Type: URINE Comment: Urine with Cr <5 is diluted or substituted . Cr between 5 and 20 is very dilute. Urine with SG of 1.001 or less is diluted or substituted . SG of 1.003 or less is very dilute. Urine with a pH <3 or >11 has been adulterated and is unsuitable for testing by our current method. Urine with pH between 3 and 4 OR 10 and 11 may have been adulterated . Ordering Provider: LATRICE WILSON S Report Released Date/Time: May 11, 2024 03:52 PM Reporting Lab: [address] [address] Performing Lab: [address] [address] [facility] BENZODIAZ EPINES SCREEN PANEL CREATININE [MASS/VOLUM E] IN URINE 162.14 mg/dL 20 05/12 Specimen Type: URINE Comment: Urine with Cr <5 is diluted or substituted . Cr between 5 and 20 is very dilute. Urine with SG of 1.001 or less is diluted or substituted . SG of 1.003 or less is very dilute. Urine with a pH <3 or >11 has been adulterated and is unsuitable for testing by our current method. Urine with pH between 3 and 4 OR 10 and 11 may have been adulterated . Ordering Provider: LATRICE WILSON Report Released Date/Time: May 11, 2024 03:52 PM Reporting Lab: [facility] HersN MASSVertica SystemsUSETS [address] [address] Performing Lab: [facility] HersGRE[facility]ST[facility] Perfect PriceUSE[address] [address] [facility]ITALUSE [facility] BENZODIAZ EPINES SCREEN PANEL SPECIFIC GRAVITY OF URINE 1.021 1.003 - 1.020 05/12 H Specimen Type: URINE Comment: Urine with Cr <5 is diluted or substituted . Cr between 5 and 20 is very dilute. Urine with SG of 1.001 or less is diluted or substituted . SG of 1.003 or less is very dilute. Urine with a pH <3 or >11 has been adulterated and is unsuitable for testing by our current method. Urine with pH between 3 and 4 OR 10 and 11 may have been adulterated . Ordering Provider: LATRICE WILSON Report Released Date/Time: May 11, 2024 03:52 PM Reporting Lab: [facility] [place] SystemsUS[place] [address] [address] Performing Lab: [facility]N Perfect PriceCHUSETS [address] [address] [facility]ITALUSE [facility] CANNABINO IDS SCREEN PANEL CANNABINOID S [PRESENCE] IN URINE BY SCREEN METHOD NONE-D ETECTE D - 50 05/12 Specimen Type: URINE Comment: Urine with Cr <5 is diluted or substituted . Cr between 5 and 20 is very dilute. Urine with SG of 1.001 or less is diluted or substituted . SG of 1.003 or less is very dilute. Urine with a pH <3 or >11 has been adulterated and is unsuitable for testing by our current method. Urine with pH between 3 and 4 OR 10 and 11 may have been adulterated . Ordering Provider: LATRICE WILSON S Report Released Date/Time: May 11, 2024 03:52 PM Reporting Lab: [place] [facility] [place] [place] [address] [address] Performing Lab: [place] [facility] [address] [address] [facility] [place] [facility] CANNABINO IDS SCREEN PANEL PH OF URINE 5.6 [pH] 4 - 10 05/12 Specimen Type: URINE Comment: Urine with Cr <5 is diluted or substituted . Cr between 5 and 20 is very dilute. Urine with SG of 1.001 or less is diluted or substituted . SG of 1.003 or less is very dilute. Urine with a pH <3 or >11 has been adulterated and is unsuitable for testing by our current method. Urine with pH between 3 and 4 OR 10 and 11 may have been adulterated . Ordering Provider: LATRICE WILSON S Report Released Date/Time: May 11, 2024 03:52 PM Reporting Lab: [facility] [place] [address] [address] Performing Lab: [facility]RL [place] [place] [address] [address] [facility]ITALUSE [facility] CANNABINO IDS SCREEN PANEL CREATININE [MASS/VOLUM E] IN URINE 162.14 mg/dL 05/12 Specimen Type: URINE Comment: Urine with Cr <5 is diluted or substituted . Cr between 5 and 20 is very dilute. Urine with SG of 1.001 or less is diluted or substituted . SG of 1.003 or less is very dilute. Urine with a pH <3 or >11 has been adulterated and is unsuitable for testing by our current method. Urine with pH between 3 and 4 OR 10 and 11 may have been adulterated . Ordering Provider: LATRICE WILSON S Report Released Date/Time: May 11, 2024 03:52 PM Reporting Lab: [facility] [place] [place] [address] [address] Performing Lab: [address] [address] [facility] CANNABINO IDS SCREEN PANEL SPECIFIC GRAVITY OF URINE 1.021 1.003 - 1.020 05/12 H Specimen Type: URINE Comment: Urine with Cr <5 is diluted or substituted . Cr between 5 and 20 is very dilute. Urine with SG of 1.001 or less is diluted or substituted . SG of 1.003 or less is very dilute. Urine with a pH <3 or >11 has been adulterated and is unsuitable for testing by our current method. Urine with pH between 3 and 4 OR 10 and 11 may have been adulterated . Ordering Provider: LATRICE WILSON Report Released Date/Time: May 11, 2024 03:52 PM Reporting Lab: [address] [address] Performing Lab: [address] [address] [facility] BUPRENORP MARY BETH SCREEN PANEL BUPRENORPHI NE [PRESENCE] IN URINE NONE-D ETECTE D 05/12 Specimen Type: URINE Comment: Urine with Cr <5 is diluted or substituted . Cr between 5 and 20 is very dilute. Urine with SG of 1.001 or less is diluted or substituted . SG of 1.003 or less is very dilute. Urine with a pH <3 or >11 has been adulterated and is unsuitable for testing by our current method. Urine with pH between 3 and 4 OR 10 and 11 may have been adulterated . Ordering Provider: LATRICE WILSON Report Released Date/Time: May 11, 2024 03:52 PM Reporting Lab: [address] [address] Performing Lab: [address] [address] [facility] BUPRENORP MARY BETH SCREEN PANEL PH OF URINE 5.6 [pH] 4 - 10 05/12 Specimen Type: URINE Comment: Urine with Cr <5 is diluted or substituted . Cr between 5 and 20 is very dilute. Urine with SG of 1.001 or less is diluted or substituted . SG of 1.003 or less is very dilute. Urine with a pH <3 or >11 has been adulterated and is unsuitable for testing by our current method. Urine with pH between 3 and 4 OR 10 and 11 may have been adulterated . Ordering Provider: LATRICE WILSON S Report Released Date/Time: May 11, 2024 03:52 PM Reporting Lab: [facility]ERRGADSD[facility]ENTERTRN [place] [address] [address] Performing Lab: [facility]RT[facility] MASSUSE[address] [address] [facility] [place] TS [facility] BUPRENORP MARY BETH SCREEN PANEL CREATININE [MASS/VOLUM E] IN URINE 162.14 mg/dL 05/12 Specimen Type: URINE Comment: Urine with Cr <5 is diluted or substituted . Cr between 5 and 20 is very dilute. Urine with SG of 1.001 or less is diluted or substituted . SG of 1.003 or less is very dilute. Urine with a pH <3 or >11 has been adulterated and is unsuitable for testing by our current method. Urine with pH between 3 and 4 OR 10 and 11 may have been adulterated . Ordering Provider: LATRICE WILSON Report Released Date/Time: May 11, 2024 03:52 PM Reporting Lab: [facility]ERR[facility] CENTERTRN [place] [address] [address] Performing Lab: [facility]N [facility]OSPITALUSE[address] [address] [facility]ITALUSE [facility] BUPRENORP MARY BETH SCREEN PANEL SPECIFIC GRAVITY OF URINE 1.021 1.003 - 1.020 05/12 H Specimen Type: URINE Comment: Urine with Cr <5 is diluted or substituted . Cr between 5 and 20 is very dilute. Urine with SG of 1.001 or less is diluted or substituted . SG of 1.003 or less is very dilute. Urine with a pH <3 or >11 has been adulterated and is unsuitable for testing by our current method. Urine with pH between 3 and 4 OR 10 and 11 may have been adulterated . Ordering Provider: LATRICE WILSON S Report Released Date/Time: May 11, 2024 03:52 PM Reporting Lab: [facility]ERR[facility]AD[facility] CENTERTRN [facility] HOSPITALUSETS [address] [address] Performing Lab: [facility]ERRGADSD[facility] CENTERTRN [facility]ITALUSE[address] [address] [facility] COCAINE SCREEN PANEL COCAINE [PRESENCE] IN URINE BY SCREEN METHOD NONE-D ETECTE D - 300 05/12 Specimen Type: URINE Comment: Urine with Cr <5 is diluted or substituted . Cr between 5 and 20 is very dilute. Urine with SG of 1.001 or less is diluted or substituted . SG of 1.003 or less is very dilute. Urine with a pH <3 or >11 has been adulterated and is unsuitable for testing by our current method. Urine with pH between 3 and 4 OR 10 and 11 may have been adulterated . Ordering Provider: LATRICE WILSON Report Released Date/Time: May 11, 2024 03:52 PM Reporting Lab: [facility]RL TRN [facility]ITALUSE[address] [address] Performing Lab: [facility]ENTERRL TRN [facility]ITALUSE[address] [address] [facility] COCAINE SCREEN PANEL PH OF URINE 5.6 [pH] 4 - 10 05/12 Specimen Type: URINE Comment: Urine with Cr <5 is diluted or substituted . Cr between 5 and 20 is very dilute. Urine with SG of 1.001 or less is diluted or substituted . SG of 1.003 or less is very dilute. Urine with a pH <3 or >11 has been adulterated and is unsuitable for testing by our current method. Urine with pH between 3 and 4 OR 10 and 11 may have been adulterated . Ordering Provider: LATRICE WILSON S Report Released Date/Time: May 11, 2024 03:52 PM Reporting Lab: [facility]ENTERRL TRN [facility] HOSPITALUSETS [address] [address] Performing Lab: [facility]RT[facility]ITALUSE[address] [address] [facility] COCAINE SCREEN PANEL CREATININE [MASS/VOLUM E] IN URINE 162.14 mg/dL 20 05/12 Specimen Type: URINE Comment: Urine with Cr <5 is diluted or substituted . Cr between 5 and 20 is very dilute. Urine with SG of 1.001 or less is diluted or substituted . SG of 1.003 or less is very dilute. Urine with a pH <3 or >11 has been adulterated and is unsuitable for testing by our current method. Urine with pH between 3 and 4 OR 10 and 11 may have been adulterated . Ordering Provider: LATRICE WILSON Report Released Date/Time: May 11, 2024 03:52 PM Reporting Lab: [address] [address] Performing Lab: [address] [address] [facility] COCAINE SCREEN PANEL SPECIFIC GRAVITY OF URINE 1.021 1.003 - 1.020 05/12 H Specimen Type: URINE Comment: Urine with Cr <5 is diluted or substituted . Cr between 5 and 20 is very dilute. Urine with SG of 1.001 or less is diluted or substituted . SG of 1.003 or less is very dilute. Urine with a pH <3 or >11 has been adulterated and is unsuitable for testing by our current method. Urine with pH between 3 and 4 OR 10 and 11 may have been adulterated . Ordering Provider: LATRICE WILSON Report Released Date/Time: May 11, 2024 03:52 PM Reporting Lab: [address] [address] Performing Lab: [address] [address] [facility] OPIATES SCREEN PANEL OPIATES [PRESENCE] IN URINE BY SCREEN METHOD NONE-D ETECTE D - 300 05/12 Specimen Type: URINE Comment: Urine with Cr <5 is diluted or substituted . Cr between 5 and 20 is very dilute. Urine with SG of 1.001 or less is diluted or substituted . SG of 1.003 or less is very dilute. Urine with a pH <3 or >11 has been adulterated and is unsuitable for testing by our current method. Urine with pH between 3 and 4 OR 10 and 11 may have been adulterated . Ordering Provider: LATRICE WILSON S Report Released Date/Time: May 11, 2024 03:52 PM Reporting Lab: [facility] [place] [facility] [address] [facility] [address] Performing Lab: [facility]ENTERRGADSD[facility] CENTERTRN [facility] HOSPITALUSETS [address] [address] [facility] OPIATES SCREEN PANEL PH OF URINE 5.6 [pH] 4 - 10 05/12 Specimen Type: URINE Comment: Urine with Cr <5 is diluted or substituted . Cr between 5 and 20 is very dilute. Urine with SG of 1.001 or less is diluted or substituted . SG of 1.003 or less is very dilute. Urine with a pH <3 or >11 has been adulterated and is unsuitable for testing by our current method. Urine with pH between 3 and 4 OR 10 and 11 may have been adulterated . Ordering Provider: LATRICE WILSON S Report Released Date/Time: May 11, 2024 03:52 PM Reporting Lab: [facility]RL TRN [place] [address] [address] Performing Lab: [facility]ERRGADSD[facility] CENTERTRN [facility] HOSPITALUSETS [address] [address] [facility] OPIATES SCREEN PANEL CREATININE [MASS/VOLUM E] IN URINE 162.14 mg/dL 05/12 Specimen Type: URINE Comment: Urine with Cr <5 is diluted or substituted . Cr between 5 and 20 is very dilute. Urine with SG of 1.001 or less is diluted or substituted . SG of 1.003 or less is very dilute. Urine with a pH <3 or >11 has been adulterated and is unsuitable for testing by our current method. Urine with pH between 3 and 4 OR 10 and 11 may have been adulterated . Ordering Provider: LATRICE WILSON S Report Released Date/Time: May 11, 2024 03:52 PM Reporting Lab: [facility]ERRGADSD[facility] CENTERTRN [facility]OSPITALUSETS [address] [address] Performing Lab: [facility]N [facility]OSPITALUSE[address] [address] [facility] OPIATES SCREEN PANEL SPECIFIC GRAVITY OF URINE 1.021 1.003 - 1.020 05/12 H Specimen Type: URINE Comment: Urine with Cr <5 is diluted or substituted . Cr between 5 and 20 is very dilute. Urine with SG of 1.001 or less is diluted or substituted . SG of 1.003 or less is very dilute. Urine with a pH <3 or >11 has been adulterated and is unsuitable for testing by our current method. Urine with pH between 3 and 4 OR 10 and 11 may have been adulterated . Ordering Provider: LATRICE WILSON Report Released Date/Time: May 11, 2024 03:52 PM Reporting Lab: [address] [address] Performing Lab: [address] [address] [facility] OXYCODONE SCREEN PANEL OXYCODONE [PRESENCE] IN URINE BY SCREEN METHOD NONE-D ETECTE D - 100 05/12 Specimen Type: URINE Comment: Urine with Cr <5 is diluted or substituted . Cr between 5 and 20 is very dilute. Urine with SG of 1.001 or less is diluted or substituted . SG of 1.003 or less is very dilute. Urine with a pH <3 or >11 has been adulterated and is unsuitable for testing by our current method. Urine with pH between 3 and 4 OR 10 and 11 may have been adulterated . Ordering Provider: LATRICE WILSON Report Released Date/Time: May 11, 2024 03:52 PM Reporting Lab: [address] [address] Performing Lab: [address] [address] [facility] OXYCODONE SCREEN PANEL PH OF URINE 5.6 [pH] 4 - 10 05/12 Specimen Type: URINE Comment: Urine with Cr <5 is diluted or substituted . Cr between 5 and 20 is very dilute. Urine with SG of 1.001 or less is diluted or substituted . SG of 1.003 or less is very dilute. Urine with a pH <3 or >11 has been adulterated and is unsuitable for testing by our current method. Urine with pH between 3 and 4 OR 10 and 11 may have been adulterated . Ordering Provider: LATRICE WILSON S Report Released Date/Time: May 11, 2024 03:52 PM Reporting Lab: [facility] [address] [address] Performing Lab: [facility] [address] [address] [facility] OXYCODONE SCREEN PANEL CREATININE [MASS/VOLUM E] IN URINE 162.14 mg/dL 05/12 Specimen Type: URINE Comment: Urine with Cr <5 is diluted or substituted . Cr between 5 and 20 is very dilute. Urine with SG of 1.001 or less is diluted or substituted . SG of 1.003 or less is very dilute. Urine with a pH <3 or >11 has been adulterated and is unsuitable for testing by our current method. Urine with pH between 3 and 4 OR 10 and 11 may have been adulterated . Ordering Provider: LATRICE WILSON S Report Released Date/Time: May 11, 2024 03:52 PM Reporting Lab: [facility] [address] [address] Performing Lab: [facility] [place] [address] [address] [facility] OXYCODONE SCREEN PANEL SPECIFIC GRAVITY OF URINE 1.021 1.003 - 1.020 05/12 H Specimen Type: URINE Comment: Urine with Cr <5 is diluted or substituted . Cr between 5 and 20 is very dilute. Urine with SG of 1.001 or less is diluted or substituted . SG of 1.003 or less is very dilute. Urine with a pH <3 or >11 has been adulterated and is unsuitable for testing by our current method. Urine with pH between 3 and 4 OR 10 and 11 may have been adulterated . Ordering Provider: LATRICE WILSON S Report Released Date/Time: May 11, 2024 03:52 PM Reporting Lab: [facility] [address] [facility] [address] Performing Lab: [facility] [address] [facility] [address] [facility] Vital Signs Combined list of inpatient and outpatient Vital Signs from Department of Defense and Veterans Affairs, ranging from 12 months to all on record, depending upon the facility. Vital Sign Value Date Comments Source SYSTOLIC BLOOD PRESSURE 150 07/27/20 24 14:31:42 [facility] DIASTOLIC BLOOD PRESSURE 100 024 14:31:42 [facility] PULSE OXIMETRY 97 07/27/2024 14:31:42 [facility] PAIN 7 07/27/2024 14:31:42 [facility] PULSE 93 07/27/2024 14:31:42 [facility] RESPIRATION 18 07/27/2024 14:31:42 [facility] SYSTOLIC BLOOD PRESSURE 147 05/31/20 24 11:47:41 [facility] DIASTOLIC BLOOD PRESSURE 101 024 11:47:41 [facility] PULSE OXIMETRY 97 05/31/2024 11:47:41 [facility] WEIGHT 328.2 05/31/2024 11:47:41 [facility] BMI 43kg/m2 05/31/2024 11:47:41 [facility] PAIN 0 05/31/2024 11:47:41 [facility] HEIGHT 73 05/31/2024 11:47:41 [facility] TEMPERATURE 97.4 05/31/2024 11:47:41 [facility] PULSE 77 05/31/2024 11:47:41 [facility] RESPIRATION 16 05/31/2024 11:47:41 [facility] SYSTOLIC BLOOD PRESSURE 143 02/25/20 24 13:18:53 [facility] DIASTOLIC BLOOD PRESSURE 88 024 13:18:53 [facility] PULSE OXIMETRY 95 02/25/2024 13:18:53 [facility] WEIGHT 322.4 02/25/2024 13:18:53 [facility] BMI 44kg/m2 02/25/2024 13:18:53 [facility] PAIN 7 02/25/2024 13:18:53 [facility] TEMPERATURE 98 02/25/2024 13:18:53 [facility] PULSE 59 02/25/2024 13:18:53 [facility] RESPIRATION 18 02/25/2024 13:18:53 [facility] SYSTOLIC BLOOD PRESSURE 140 01/05/20 24 13:07:34 [facility] DIASTOLIC BLOOD PRESSURE 88 024 13:07:34 [facility] PULSE OXIMETRY 95 01/05/2024 13:07:34 [facility] WEIGHT 317 01/05/2024 13:07:34 [facility] BMI 43kg/m2 01/05/2024 13:07:34 [facility] PAIN 8 01/05/2024 13:07:34 [facility] PULSE 73 01/05/2024 13:07:34 [facility] RESPIRATION 24 01/05/2024 13:07:34 [facility] SYSTOLIC BLOOD PRESSURE 159 11/11/19 24 10:11:03 [facility] DIASTOLIC BLOOD PRESSURE 87 04/03/2 024 10:11:03 [facility] PULSE OXIMETRY 95 11/11/2023 10:11:03 [facility] WEIGHT 316.8 11/11/2023 10:11:03 [facility] BMI 43kg/m2 11/11/2023 10:11:03 [facility] PAIN 0 11/11/2023 10:11:03 [facility] HEIGHT 72 11/11/2023 10:11:03 [facility] TEMPERATURE 97.6 11/11/2023 10:11:03 [facility] PULSE 74 11/11/2023 10:11:03 [facility] RESPIRATION 16 11/11/2023 10:11:03 [facility] Encounters Combined list of: 1) Encounters from Department of Veterans Affairs facilities going back up to thelast 18 months. 2) Encounters from the Department of Defense facilities going back up to 280 months. Location Location Details Encounter Type Encounter Number Reason For Visit Attending Provider ADM Date DC Date Status Disposition Source [facility] COLLJ & INTERPJ DATA EA 30 D [id number] Diagnos is: ICD-10- CM G47.30 Sleep apnea, unspeci fied
RICHY NGUYEN 02/18 [facility] En[facility] [id number] 02/27 [facility] Encounter [id number] 03/02 [facility]counter [id number] 03/05 [facility] Encounter [id number] 03/09 [facility] OFFICE O/P EST MOD 30-39 MIN [id number] Diagnos is: ICD-10- CM M25.562 Pain in left knee
NICKI TIPTON S 03/10 [facility] En[facility] [id number] 03/10 [facility] OFFICE O/P EST HI 40-54 MIN [id number] Diagnos is: ICD-10- CM M25.562 Pain in left knee
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
CHRISTINE KHAN 04/08 [place] [facility] Out[facility] Encounter [id number] 04/09 [facility] Encounter [id number] 04/14 [facility] Out[facility] Encounter [id number] 04/16 [facility] Encounter [id number] 04/[address] [facility]P EST MOD 30-39 MIN [id number] Diagnos is: ICD-10- CM I10 Essenti al (primar y) hyperte nsion<b r/> RONNIE OVALLES 05/12 [place] [facility] IMMUNIZATI ON ADMIN EACH ADD [id number] RONNIE OVALLES 05/12 [facility] Out[facility] Encounter [id number] 05/13 [facility] Out[facility] Encounter [id number] 05/13 [facility] OFFICE O/P EST MOD 30-39 MIN [id number] Diagnos is: ICD-10- CM M54.50 Low back pain, unspeci fied
CUTGREGGNICKI LAWANDA S 05/14 [facility] Out[facility] Encounter [id number] 05/21 [facility] POS AIRWAY PRESSURE CPAP [id number] Diagnos is: ICD-10- CM G47.30 Sleep apnea, unspeci fied
RICHY NGUYEN 05/22 [facility] Out[facility] Encounter [id number] Diagnos is: ICD-10- CM M54.50 Low back pain, unspeci fied
CUTNICKI ESCOBEDO S 06/18 [facility] Out[facility] Encounter [id number] BENEDICT GILMORE 06/25 [facility] Out[facility] Encounter [id number] BENEDICT GILMORE 06/25 [facility] Out[facility] Encounter [id number] TEPBENEDICT 06/25 [facility] Out[facility] Encounter [id number] 06/30 [facility] Out[facility] Encounter [id number] 06/30 [facility] Out[facility] Encounter [id number] 07/13 [facility] OFFICE O/P EST MOD 30-39 MIN [id number] Diagnos is: ICD-10- CM M54.50 Low back pain, unspeci fied
NICKI TIPTON 07/14 [facility] Out[facility] Encounter [id number] 07/16 [facility] Out[facility] Encounter [id number] 07/16 [facility] Out[facility] Encounter [id number] 07/24 [facility] OFFICE O/P EST HI 40-54 MIN [id number] Diagnos is: ICD-10- CM M25.562 Pain in left knee
NICKI TIPTON S 07/28 [facility] OFFICE O/P EST LOW 20-29 MIN [id number] Diagnos is: ICD-10- CM M54.50 Low back pain, unspeci fied
RONNIE OVALLES 07/31 [place] [facility] Out[facility] Encounter [id number] 08/12 [facility] Out[facility] Encounter [id number] LIS DUGGAN 08/13 [facility] OFFICE O/P EST MOD 30 MIN [id number] Diagnos is: ICD-10- CM M54.50 Low back pain, unspeci fied
NICKI TIPTON S 08/13 [facility] Encounter [id number] LIS DUGGAN 08/14 [facility] Out[facility] Encounter [id number] 08/20 [facility] Out[facility] Encounter [id number] 08/21 [facility] Out[facility] Encounter [id number] 08/26 [facility] Out[facility] Encounter [id number] NICKI TIPTON S 09/08 [facility] Out[facility] Encounter [id number] NICKI TIPTON S 09/08 [facility] Outpatient Encounter [id number] Diagnos is: ICD-10- CM M54.50 Low back pain, unspeci fied
NICKI TIPTON S 09/08 [facility] Out[facility] Encounter [id number] 09/15 [facility] OFFICE O/P EST MOD 30 MIN [id number] Diagnos is: ICD-10- CM M54.50 Low back pain, unspeci fied
NICKI TIPTON S 09/16 [facility] OFFICE O/P NEW HI 60 MIN [id number] Diagnos is: ICD-10- CM M54.50 Low back pain, unspeci fied
Juan Diego PITTS 09/17 [facility] En[facility] [id number] 09/25 [facility] Out[facility] Encounter [id number] 09/25 [facility] OFFICE O/P EST HI 40 MIN [id number] Diagnos is: ICD-10- CM G89.29 Other chronic pain
KUPFERSCHM ID,JARAD B 09/29 [facility] OFFICE O/P [place] HI 40 MIN [id number] Diagnos is: ICD-10- CM M54.16 Radicul opathy, lumbar region< br/> YAIR FALCON THI 09/30 [facility] Out[facility] Encounter [id number] 09/30 [facility] Out[facility] Encounter [id number] 10/20 [facility] Out[facility] Encounter [id number] 10/28 [facility] Out[facility] Encounter [id number] 10/28 [facility] Out[facility] Encounter [id number] 10/28 [facility] Out[facility] Encounter [id number] 10/29 [facility] Out[facility] Encounter [id number] 10/29 [facility] Out[facility] Encounter [id number] 11/02 [facility] Out[facility] Encounter [id number] 11/03 [facility] OFFICE O/P EST LOW 20 MIN [id number] Diagnos is: ICD-10- CM M25.562 Pain in left knee
Juan Diego PITTS 11/04 [facility] OFFICE O/P EST LOW 20 MIN [id number] Diagnos is: ICD-10- CM I10 Essenti al (primar y) hyperte nsion<b r/> RONNIE OVALLES 11/10 [facility] Outpatient Encounter [id number] 11/22 [facility] OFFICE O/P EST MOD 30 MIN [id number] Diagnos is: ICD-10- CM M54.50 Low back pain, unspeci fied
NICKI TIPTON 11/23 [facility] Outpatient Encounter [id number] 11/24 [facility] Outpatient Encounter [id number] Silvestre VALLECILLO 11/24 [facility] Outpatient Encounter [id number] 11/24 [facility] SELF CARE MNGMENT TRAINING [id number] Diagnos is: ICD-10- CM 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
NORI MCDONALD RONI 12/07 [facility] Outpatient Encounter [id number] Diagnos is: ICD-10- CM M54.50 Low back pain, unspeci fied
NICKI TIPTON 12/22 [facility] OFFICE O/P EST MOD 30 MIN [id number] Diagnos is: ICD-10- CM M25.562 Pain in left knee
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
MCDONALD, NORI RONI 01/14 [place] [facility] Out[facility] Encounter [id number] 02/07 [facility] Out[facility] Encounter [id number] 02/08 [facility] Outpatient Encounter [id number] 02/14 [facility] OFFICE O/P EST LOW 20 MIN [id number] Diagnos is: ICD-10- CM M25.562 Pain in left knee
Juan Diego PITTS 02/24 [facility] Out[facility] Encounter [id number] RA QUIN CERNA 03/01 [facility] MTMS BY PHARM GRAPHIC ARTIST 15 MIN [id number] Diagnos is: ICD-10- CM M25.562 Pain in left knee
BENEDICT GILMORE 03/01 [facility] COMPRE OPH EXAM EST PT 1/> [id number] Diagnos is: ICD-10- CM Z87.820 Persona l history of traumat ic brain injury< br/> AMARJIT ARRIAGA 03/21 [facility] FIT SPECTACLES BIFOCAL [id number] Diagnos is: ICD-10- CM Z46.0 Encount er for fit/adj st of spectac les and contact lenses< br/> CORINA,AMARJIT H B 03/21 [facility] Outpatient Encounter [id number] 03/23 [facility] OFFICE O/P EST MOD 30 MIN [id number] Diagnos is: ICD-10- CM M25.562 Pain in left knee
NICKI TIPTONM Silvestre 03/24 [facility] Out[facility] Encounter [id number] 04/06 [facility] Outpatient Encounter [id number]/04 [facility] Outpatient Encounter [id number] 05/04 [facility] Out[facility] Encounter [id number] 05/09 [facility]counter [id number] 05/10 [facility]counter [id number] 05/16 [facility] [id number] 1.05/16 [facility] [id number] 1.05/17 [facility] Outpatient Encounter [id number] 1.05/20 [facility] OFFICE O/P EST MOD 30 MIN [id number] Diagnos is: ICD-10- CM I10 Essenti al (primar y) hyperte nsion<b r/> RONNIE OVALLES 05/31 [facility] ELECTROCAR DIOGRAM REPORT [id number] Diagnos is: ICD-10- CM Z13.6 Encount er for screeni ng for cardiov ascular disorde rs
PRAKASH MURRY 05/31 [place] [facility] Outpatient Encounter [id number] [facility] TTE W/DOPPLER COMPLETE [id number] Diagnos is: ICD-10- CM I44.7 Left bundle- branch block, unspeci fied
DANISHA FLOREZ 06/07 [facility] OFF/OP CNSLTJ NEW/EST MOD 40 [id number] Diagnos is: ICD-10- CM I44.7 Left bundle- branch block, unspeci fied
JOHN CLAYTON 06/09 [place] [facility] Outpatient Encounter [id number] 06/21 [facility] Outpatient Encounter [id number] 1.06/29 [facility] Outpatient Encounter [id number] 07/05 [facility] [id number] 1.07/06 [facility] En[facility] [id number] 1.07/06 [facility]counter [id number] 1. MARCIE DOSS OLAS 07/18 [facility] En[facility] [id number] 07/18 [facility] Encounter [id number] 07/20 [facility] COLLJ & INTERPJ DATA EA 30 D [id number] 1. Diagnos is: ICD-10- CM G47.30 Sleep apnea, unspeci fied
RICHY NGUYEN 07/20 [facility] Encounter [id number] 1. MARCIE DOSS OLAS 07/20 [facility] Encounter [id number] 1.07/20 [facility] OFFICE O/P EST HI 40 MIN [id number] . Diagnos is: ICD-10- CM M54.16 Radicul opathy, lumbar region< br/> YAIR FALCON 07/27 [facility] En[facility] [id number] 07[facility] Procedures Combined list of: 1) Procedures from [facility] Veterans Affairs facilities going back up to thelast 18 months, not all [place] non-surgical procedures are included; 2) All procedures from the Department of Defense facilities. Procedure Procedure Type Code Date Perfomer Comments Sourc e SCREENING TEST, PURE TONE, AIR ONLY 08/15/2004 [facility] SALINE SOLUTION, PER 10 ML, METERED DOSE DISPENSER, FOR USE WITH INHALATION DRUGS 05/19/2003 [facility] PSYCHIATRIC DIAGNOSTIC INTERVIEW EXAMINATION 04/24/2003 [facility] Social History Combined list of available smoking, tobacco, and other social history from Department of Defense and Veterans Affairs facilities. Social History Type Response Date Comment Sourc e Tobacco smoking status NHIS [facility]-TOBACCO NEVER USED 05/31/2024 [facility] [place] of [place] use [place]20[facility] [place] of tobacco use [place] USED 05/26/2022 [facility] History of tobacco use [place]-TOBACCO NEVER USED 05/21/2021 [facility] History of tobacco use VA-TOBACCO NEVER USED 08/08/2019 [facility] History of tobacco use VA-TOBACCO NEVER USED 06/28/2018 [facility] History of tobacco use LIFETIME NON-TOBACCO USER 05/28/2017 [place] History of tobacco use LIFETIME NON-TOBACCO USER 10/20/2015 [facility] History of tobacco use LIFETIME NON-TOBACCO USER 09/19/2009 [facility] History of tobacco use LIFETIME NON-USER OF TOBACCO 10/27/2006 [place] History of tobacco use LIFETIME NON-SMOKER/TOBACCO USER 08/21/2004 [facility] This section is an empty social history section. [facility] Plan of Care List of future care activities from [facility] facilities. Additional future care activities may be listed in the Assessment and Plan section. Date/Time Care Activity Care Activity Detail Facili ty 08/30/2024 AMBULATORY - MEDICINE AM[facility]ORY [facility]ICI [facility] 09/14/2024 AMBULATORY - REHAB MEDICINE [facility] 07/05/2024 Consult Order COMMUNITY CARE-ACUPUNCTURE Cons Director Of Teenage Activities's Choice [facility] 08/31/2024 Laboratory - Hollow Tile Partition Erector ry Order LIPID PANEL FASTING BLOOD (SST-SERUM) [facility] 08/31/2024 Laboratory - Hollow Tile Partition Erector ry Order LIVER FUNCTION BLOOD (SST-SERUM) [facility] 08/31/2024 Laboratory - Hollow Tile Partition Erector ry Order BASIC METABOLIC PANEL (fasting) BLOOD (SST-SERUM) [facility] Advance Directives List of completed, amended, or rescinded Advance Directives on record at Department of [facility] facilities. An actual copy of the Directive is not included. Date Advance Directive Provider Source 03/22/2018 ADVANCE DIRECTIVE JASWANT DICKINSON [facility]
--- OUTSIDE RECORDS SUMMARY | 2024-08-18 09:55 | XMS_ITS ---
Author Name [facility] [place] Organization [place] Address [address] [place] [address] Care Team Providers Care Track Broom Operator Name Role Phone EHSAN OVALLES Primary Care [...] PART A December 08, 2013 PART A [id number] 62A BRIGID RAMOS PATIENT MEDICARE (WNR) MEDICARE (M) PART A December 08, 2013 PART A [id number] 62A BRIGID RAMOS PATIENT Selected Encounter This section includes the information on record at [place] for the Encounter. Date/Time Encounter Type Encounter Description Reason Pro vider Source Jul 18, 2024 11:03 AM Outpatient Encounter PRIMARY CARE/MEDICINE IHE Encounter Template Text not used by [place] Plan of Treatment: Future Appointments (+ 6 months) and Future Tests (+/- 45 days) The Plan of Treatment section includes future care activities for the patient from all [facility] treatment[facility]ilities. This section includes future appointments and [...] 02:30 PM AMBULATORY - REHAB MEDICIN E [facility] Aug 30, 2024 11:00 AM AMBULATORY - MEDICINE [facility] Sep 14, 2024 01:00 PM AMBULATORY - REHAB MEDICIN E [facility] Active, Pending, and Scheduled Orders This section includes a listing of several types of active, pending, and scheduled orders, including clinic medications orders, diagnostic test orders, procedure orders and consult orders; where the start date of the order is 45 days before the date of the Encounter or 45 days after the date of theEncounter. The data comes from all [facility]. Test Date/Time Test Type Test Details Facility Name Jul 05, 2024 09:45 AM Consult Order COMMUNITY CARE-ACUPUNCTURE Cons Manager Of Financial Reporting's Choice [facility] Aug 31, 2024 12:00 AM Laboratory - Chemi stry Order LIPID PANEL FASTING BLOOD (SST-SERUM) [facility] Aug 31, 2024 12:00 AM Laboratory - Chemi stry Order LIVER FUNCTION BLOOD (SST-SERUM) [facility] Aug 31, 2024 12:00 AM Laboratory - Chemi stry Order BASIC METABOLIC PANEL (fasting) BLOOD (SST-SERUM) [facility] Social History: Smoking Status (Most current) and Tobacco Use (All prior to encounter date) This section includes the most current, and the historical, smoking and tobacco- related health factors from the [place] facility where the Encounter took place. Current Smoking Status This section includes the most current smoking, or tobacco-related health factor, from the [place] facility where the Encounter took place. Date/Time Current Smoking Status Comment Facil ity May 12, 2023 10:46 AM [place]-TOBACCO NEVER USED [facility] Tobacco Use History This section includes a history of the smoking, or tobacco-related health factors, that were collected on or before the date of the Encounter. The data comes from the [place] facility where the Encounter took place. Date/Time Smoking Status/Tobacco Use Comment F acility Oct 20, 2015 10:30 AM LIFETIME NON-TOBACCO USER [facility] Sep 19, 2009 11:13 AM LIFETIME NON-TOBACCO USER [facility] Advance Directives: All historical and current Section Date Range: From patient's date of to the date document was created. This section includes ALL of a patient's completed or amended [place] Advance and Rescinded Directives. The entries below indicate that a directive exists for the patient, but an actual copy is not included with this document. The data comes from all [place] facilities. Date Advance Directives Provider Source Mar 22, 2018 ADVANCE DIRECTIVE JASWANT DICKINSON [facility] Radiology Reports: +/- 30 days of [...] the Encounter. The data comes from all [place] treatment facilities. Date/Time Radiology Report Provider Source Jul 27, 2024 02:52 PM FLUOROSCOPIC [place] NCE OF NEEDLE/SPINE: ODILIACOLBY [id number] -1970 M Exm Date: JUL 27, 2024@14:52 Req Phys: FALCONYAIR [facility] Loc: CWM/NO/MED REHAB/SPINE INJ (Re Img Loc: [facility] Service: [place] [address] (Case [id number] COMPLETE) FLUOROSCOPIC GUIDANCE OF NEEDLE/S(RAD Detailed) CPT:87954 Reason for Study: transforaminal epidural steroid injection Clinical History: Report Status: Verified Date Reported: JUL 27, 2024 Date Verified: JUL 27, 2024 Leather Stripping Machine Operator E-Sig:/ES/GREG OLIVIER JR Report: Study: Pain injection [...] Primary Interpreting Staff: GREG OLIVIER JR, Radiologist (Leather Stripping Machine Operator) /GREG GAITAN JR [facility] Encounter Notes: All associated encounter notes This section contains the clinical notes associated to the Encounter. Date/Time Encounter Note(s) Provider Source Jul 18, 2024 11:03 AM MEDICATION MGT NOT E: LOCAL TITLE: OUTPATIENT MEDICATION REQUEST STANDARD TITLE: MEDICATION MGT NOTE DATE OF NOTE: JUL 18, 2024@11:03 ENTRY DATE: JUL 18, 2024@11:03:53 AUTHOR: TAMEKA DOSS EXP COSIGNER: URGENCY: STATUS: COMPLETED Medication Request Date of Request: Jul Please renew and mail. [place] POTASSIUM TAB 100MG TAKE ONE TABLET BY MOUTH ONCE DAILY FOR BLOOD PRESSURE/HEART Quantity: 90 Refills: 3 /dheeraj/ TAMEKA DOSS RN REGISTERED NURSE Signed: 07/18/2024 11:04 Receipt Acknowledged By: 07/18/2024 12:37 /dhereaj/ EHSAN OVALLES MD Primary Care Physician TAMEKA DOSS
--- OUTSIDE RECORDS SUMMARY | 2024-08-18 09:55 | XMS_ITS | Encounter Summary ---
Author Name [facility] [place] Organization [place] Address [address] [place] [address] Care Team Providers Care Private Household Worker Name Role Phone EHSAN OVALLES Primary Care [...] PART A December 08, 2013 PART A [id number] 62A KONRADDENTONMartin DAMICOBRIGID Lantigua PATIENT MEDICARE (WNR) MEDICARE (M) PART A December 08, 2013 PART A [id number] 62A [phone] KONRADBRIGID KRAMER PATIENT Selected Encounter This section includes the information on record at [place] for the Encounter. Date/Time Encounter Type Encounter Description Reason Provider Source Jul 18, 2024 11:02 AM Outpatient Encounter PRIMARY CARE/MEDICINE TAMEKA DOSS Encounter Template Text not used by [place] Plan of Treatment: Future Appointments (+ 6 [...] 20 appointments. The data comes from all [facility] Appointment Date/Time Appointment Type Appointme nt Facility Name Jul 27, 2024 02:30 PM AMBULATORY - REHAB MEDICIN E [facility] Aug 30, 2024 11:00 AM AMBULATORY - MEDICINE [facility] Sep 14, 2024 01:00 PM AMBULATORY - REHAB MEDICIN E [facility] Active, Pending, and Scheduled Orders This section includes a listing of several types of active, pending, and scheduled orders, including clinic medications orders, diagnostic test orders, procedure orders and consult orders; where the start date of the order is 45 days before the date of the Encounter or 45 days after the date of theEncounter. The data comes from all [facility]. Test Date/Time Test Type Test Details Facility Name Jul 05, 2024 09:45 AM Consult Order COMMUNITY CARE-ACUPUNCTURE Cons Visual Presentation Manager's Choice [facility] Aug 31, 2024 12:00 AM Laboratory - Chemi stry Order LIPID PANEL FASTING BLOOD (SST-SERUM) [facility] Aug 31, 2024 12:00 AM Laboratory - Chemi stry Order LIVER FUNCTION BLOOD (SST-SERUM) [facility] Aug 31, 2024 12:00 AM Laboratory - Chemi stry Order BASIC METABOLIC PANEL (fasting) BLOOD (SST-SERUM) [facility] Social History: Smoking Status (Most current) and Tobacco Use (All prior to encounter date) This section includes the most current, and the historical, smoking and tobacco- related health factors from the [place] facility where the Encounter took place. Current Smoking Status This section includes the most current smoking, or tobacco-related health factor, from the [place] facility where the Encounter took place. Date/Time Current Smoking Status Comment Facil ity May 12, 2023 10:46 AM VA-TOBACCO NEVER USED [facility] Tobacco Use History This section includes a history of the smoking, or tobacco-related health factors, that were collected on or before the date of the Encounter. The data comes from the [place] facility where the Encounter took place. Date/Time Smoking Status/Tobacco Use Comment F acility Oct 20, 2015 10:30 AM LIFETIME NON-TOBACCO USER [facility] Sep 19, 2009 11:13 AM LIFETIME NON-TOBACCO USER [facility] Advance Directives: All historical and current Section Date Range: From patient's date of to the date document was created. This section includes ALL of a patient's completed or amended [place] Advance and Rescinded Directives. The entries below indicate that a directive exists for the patient, but an actual copy is not included with this document. The data comes from all [place] facilities. Date Advance Directives Provider Source Mar 22, 2018 ADVANCE DIRECTIVE JASWANT DICKINSON [facility] Radiology Reports: +/- 30 days of [...] the Encounter. The data comes from all [place] treatment facilities. Date/Time Radiology Report Provider Source Jul 27, 2024 02:52 PM FLUOROSCOPIC [place] NCE OF NEEDLE/SPINE: ODILIADONELL [id number] -1970 M Exm Date: JUL 27, 2024@14:52 Req Phys: YAIR FALCON SINAN [facility] Loc: CWM/NO/MED REHAB/SPINE INJ (Re Img Loc: [facility] 1 Service: [place] [facility] [place] [address] (Case [id number] COMPLETE) FLUOROSCOPIC GUIDANCE OF NEEDLE/S(RAD Detailed) CPT:11260 Reason for Study: transforaminal epidural steroid injection Clinical History: Report Status: Verified Date Reported: JUL 27, 2024 Date Verified: JUL 27, 2024 Hand Router Operator E-Sig:/ES/GREG OLIVIER JR Report: Study: Pain [...] Primary Interpreting Staff: GREG OLIVIER JR, Radiologist (Hand Router Operator) /GREG GAITAN JR [facility] Encounter Notes: All associated encounter notes This section contains the clinical notes associated to the Encounter. Date/Time Encounter Note(s) Provider Source Jul 18, 2024 11:02 AM PRIMARY CARE Appetite+ MESSAGING: LOCAL TITLE: PRIMARY CARE SECURE MESSAGING STANDARD TITLE: PRIMARY CARE SECURE MESSAGING DATE OF NOTE: JUL 18, 2024@11:02 ENTRY DATE: JUL 18, 2024@11:02:55 AUTHOR: TAMEKA DOSS EXP COSIGNER: URGENCY: STATUS: COMPLETED ------Original Message ------- Sent: 07/15/2024 06:12 PM ET From: DONELL HARTLEY To: Adarsh OVALLES_PRIMARY CARE_[facility] Subject: Medication:BP meds refill Hello, I am out of my Lorsatin and need a refill. I am completely out. When I went to refill it it was . Donell Becerril /dheeraj/ TAMEKA DOSS, RN REGISTERED NURSE Signed: 07/18/2024 11:02 TAMEKA DOSS [facility]
--- OUTSIDE RECORDS SUMMARY | 2024-08-18 09:56 | XMS_ITS | Encounter Summary ---
Author Name [place] Address [address] [place] [address] Care Team Providers Care Program/Music Director Name Role Phone EHSAN OVALLES Primary Care [...] PART A December 08, 2013 PART A [id number] [id number] BRIGID RAMOS PATIENT MEDICARE (WNR) MEDICARE (M) PART A December 08, 2013 PART A [id number] [id number] BRIGID RAMOS PATIENT Selected Encounter This section includes the information on record at [place] for the Encounter. Date/Time Encounter Type Encounter Description Reason Pro vider Source Jul 27, 2024 02:51 PM Outpatient Encounter EVENT (HISTORICAL) IHE Encounter Template Text not used by [place] Plan of Treatment: Future Appointments (+ 6 [...] Date/Time Appointment Type Appointme nt Facility Name Aug 30, 2024 11:00 AM [facility] Sep 14, 2024 01:00 PM AMBULATORY - REHAB MEDICIN E [facility] Active, Pending, and Scheduled Orders This section includes a listing of several types of active, pending, and scheduled orders, including clinic medications orders, diagnostic test orders, procedure orders and consult orders; where the start date of the order is 45 days before the date of the Encounter or 45 days after the date of theEncounter. The data comes from all [facility]. Test Date/Time Test Type Test Details Facility Name Jul 05, 2024 09:45 AM Consult Order COMMUNITY CARE-ACUPUNCTURE Cons Compound Finisher's Choice [facility] Aug 31, 2024 12:00 AM Laboratory - Chemi stry Order LIPID PANEL FASTING [facility]LOOD [facility] Aug 31, 2024 12:00 AM Laboratory - Chemi stry Order BASIC METABOLIC PANEL (fasting) BLOOD (SST-SERUM) [facility] Aug 31, 2024 12:00 AM Laboratory - Chemi stry Order LIVER FUNCTION BLOOD (SST-SERUM) [facility] Vital Signs: All taken on the encounter date This section contains inpatient and outpatient Vital Signs collected on the date of the Encounter. Date/Time Temperature Pulse Blood Pressure Respiratory Rate SP02 Pain Height Weight Body Mass Index Source Jul 27, 2024 03:22 PM 80 150/100 96 1 [facility] Jul 27, 2024 02:40 PM 140/80 [facility] Jul 27, 2024 02:31 PM 93 150/100 18 97 7 [facility] Social History: Smoking Status (Most current) and Tobacco Use (All prior to encounter date) This section includes the most current, and the historical, smoking and tobacco- related health factors from the [place] facility where the Encounter took place. Current Smoking Status This section includes the most current smoking, or tobacco-related health factor, from the [place] facility where the Encounter took place. Date/Time Current Smoking Status Comment Jose armstrong May 12, 2023 10:46 AM VA-TOBACCO NEVER USED [facility] Tobacco Use History This section includes a history of the smoking, or tobacco-related health factors, that were collected on or before the date of the Encounter. The data comes from the [place] facility where the Encounter took place. Date/Time Smoking Status/Tobacco Use Comment F acility Oct 20, 2015 10:30 AM LIFETIME NON-TOBACCO USER [facility] Sep 19, 2009 11:13 AM LIFETIME NON-TOBACCO USER [facility] Advance Directives: All historical and current Section Date Range: From patient's date of to the date document was created. This section includes ALL of a patient's completed or amended [place] Advance and Rescinded Directives. The entries below indicate that a directive exists for the patient, but an actual copy is not included with this document. The data comes from all [place] facilities. Date Advance Directives Provider Source Mar 22, 2018 ADVANCE DIRECTIVE JASWANT DICKINSON [facility] Radiology Reports: +/- 30 days of [...] the Encounter. The data comes from all [place] treatment facilities. Date/Time Radiology Report Provider Source Jul 27, 2024 02:52 PM FLUOROSCOPIC [place] NCE OF NEEDLE/SPINE: ODILIAKARLYCOLBY [id number] -1970 M Exm Date: JUL 27, 2024@14:52 Req Phys: YAIR FALCON Loc: CWM/NO/MED REHAB/SPINE INJ (Re Img Loc: [facility] 1 Service: Unknown [facility] [address] (Case [id number] COMPLETE) FLUOROSCOPIC GUIDANCE OF NEEDLE/S(RAD Detailed) CPT:95562 Reason for Study: transforaminal epidural steroid injection Clinical History: Report Status: Verified Date Reported: JUL 27, 2024 Date Verified: JUL 27, 2024 Controller Operations And Hr Manager E-Sig:/ES/GREG OLIVIER JR Report: Study: Pain injection [...] Primary Interpreting Staff: GREG OLIVIER JR, Radiologist ([place]) /GREG GAITAN JR [facility]
--- OUTSIDE RECORDS SUMMARY | 2024-08-18 09:56 | XMS_ITS ---
Author Name [place] Address [address] [place] [address] Care Team Providers Care Lumber Marker Name Role Phone EHSAN OVALLES Primary Care [...] PART A December 08, 2013 PART A [id number] 62A BRIGID RAMOS PATIENT MEDICARE (WNR) MEDICARE (M) PART A December 08, 2013 PART A [id number] 62A BRIGID RAMOS PATIENT Selected Encounter This section includes the information on record at [place] for the Encounter. Date/Time Encounter Type Encounter Description Reason Pro vider Source Nov 04, 2023 12:00 PM Outpatient Encounter COMMUNITY CARE CONSULT IHE Encounter Template Text not used by [place] Plan of Treatment: Future Appointments (+ 6 [...] 20 appointments. The data comes from all [place] treatment facilities. Appointment Date/Time Appointment Type Appointme nt Facility Name Nov 05, 2023 01:00 PM AMBULATORY [facility] [place] [facility] Nov 11, 2023 10:00 AM AMBULATORY - MEDICINE [facility] [place] [facility] Nov 24, 2023 09:30 AM AMBULATORY - MEDICINE [facility] [place] [facility] Nov 26, 2023 10:30 AM AMBULATORY - REHAB MEDICIN E [place] Dec 01, 2023 09:45 AM AMBULATORY - MEDICINE [facility] [place] [facility] Dec 01, 2023 03:30 PM AMBULATORY - REHAB MEDICIN E [place] Dec 08, 2023 09:00 AM AMBULATORY - REHAB MEDICIN E [place] January 05, 2024 01:00 PM AMBULATORY - REHAB MEDICIN E [facility] [place] [facility] Jan 15, 2024 09:30 AM AMBULATORY - REHAB MEDICIN E [place] Feb 23, 2024 09:00 AM AMBULATORY - MEDICINE [place] [facility] [place] [facility] Feb 25, 2024 01:00 PM AMBULATORY - REHAB MEDICIN E [facility] [place] [facility] Mar 21, 2024 10:00 AM AMBULATORY - MEDICINE [place] [facility] [place] [facility] Mar 24, 2024 01:00 PM AMBULATORY - MEDICINE [place] [facility] [place] [facility] Apr 06, 2024 10:00 AM AMBULATORY - MEDICINE [place] [facility] [place] [facility] Lab Results: +/- 30 days of the encounter This section includes the Chemistry and Hematology Lab Results on record with [place] for the patient. Radiology Reports and Pathology Reports are provided separately, in subsequent sections. Lab Results This section contains the Chemistry/Hematology Results that were resulted 30 days before or 30 daysafter the date of the Encounter. Date/Time Source Result Type Result - Unit Interpretation Reference Range Comment Nov 09, 2023 08:51 AM [facility] [place] [facility] LIPID PANEL FASTING Specimen Type: SERUM No comment entered. Ordering Provider: EHSAN OVALLES Report Released Date/Time: May 12, 2023 10:46 AM Reporting [facility] [address] [address] Performing Lab: [facility] [address] [facility] [address] CHOLESTEROL 286 mg/dL H TRIGLYCERIDE 111 mg/dL 0-150 LDL calculated 226 mg/dL H 0-129 CHOL/HDL 7.5 HDL CHOLESTEROL 38 mg/dL L 40-60 Nov 09, 2023 08:51 AM [facility] LIVER FUNCTION Specimen Type: SERUM No comment entered. Ordering Provider: EHSAN OVALLES Report Released Date/Time: May 12, 2023 10:46 AM Reporting Lab: [facility] [address] [facility] [address] Performing Lab: [address] [address] PROTEIN,TOTAL 7.2 g/dL 6.0-8.3 ALBUMIN 4.0 g/dL 3.5-5.0 ALKALINE PHOSPHATASE 68 U/L 40-150 AST 21 U/L 5-34 ALT 40 U/L BILIRUBIN, TOTAL 0.6 mg/dL 0.2-1.2 Nov 09, 2023 08:51 AM [facility] BASIC METABOLIC PANEL (fasting) Specimen Type: SERUM No comment entered. Ordering Provider: EHSAN OVALLES Report Released Date/Time: May 12, 2023 10:46 AM Reporting Lab: [address] [address] Performing Lab: [address] [address] UREA NITROGEN 25 mg/dL 7-25 GLUCOSE 97 mg/dL 65-100 SODIUM 141 mmol/L 135-145 POTASSIUM 4.5 mmol/L 3.5-5.0 CHLORIDE 104 mmol/L 100-110 CO2 28 meq/L 20-30 CREATININE, Serum 1.12 mg/dL 0.50-1.40 eGFR(CKD-EPI 2020) 79 mL/min >60 Social History: Smoking Status (Most current) and Tobacco Use (All prior to encounter date) This section includes the most current, and the historical, smoking and tobacco- related health factors from the [place] facility where the Encounter took place. Current Smoking Status This section includes the most current smoking, or tobacco-related health factor, from the [place] facility where the Encounter took place. Date/Time Current Smoking Status Comment Jose ity May 12, 2023 10:46 AM VA-TOBACCO NEVER USED [facility] Tobacco Use History This section includes a history of the smoking, or tobacco-related health factors, that were collected on or before the date of the Encounter. The data comes from the [place] facility where the Encounter took place. Date/Time Smoking Status/Tobacco Use Comment F acility Oct 20, 2015 10:30 AM LIFETIME NON-TOBACCO USER [facility] Sep 19, 2009 11:13 AM LIFETIME NON-TOBACCO USER [facility] Advance Directives: All historical and current Section Date Range: From patient's date of to the date document was created. This section includes ALL of a patient's completed or amended [place] Advance and Rescinded Directives. The entries below indicate that a directive exists for the patient, but an actual copy is not included with this document. The data comes from all [place] facilities. Date Advance Directives Provider Source Mar 22, 2018 ADVANCE DIRECTIVE JASWANT DICKINSON [facility] Encounter Notes: All associated encounter notes This section contains the clinical notes associated to the Encounter. Date/Time Encounter Note(s) Provider Source Nov 04, 2023 12:00 PM NONVA CONSULT: LOCAL TITLE: COMMUNITY CARE-CONSULT RESULT NOTE STANDARD TITLE: NONVA CONSULT DATE OF NOTE: NOV 04, 2023@12:00 ENTRY DATE: NOV 11, 2023@08:09:59 AUTHOR: GUY ARRINGTON EXP COSIGNER: URGENCY: STATUS: COMPLETED VistA Imaging - Scanned Document [facility] ACUPUNCTURE-TREATMENT NOTES SCANNED DOCUMENT SIGNATURE NOT REQUIRED Electronically Filed: 11/11/2023 by: GUY ARRINGTON ELL TEACHER GUY ARRINGTON [facility]
--- OUTSIDE RECORDS SUMMARY | 2024-08-18 09:56 | XMS_ITS ---
Author Name [facility] [place] [facility] [place] Address [address] [place] [address] Care Team Providers Care Pull Out Operator Name Role Phone EHSAN OVALLES Primary [...] PART A December 08, 2013 PART A [id number] [facility] [phone] BRIGID RAMOS PATIENT MEDICARE (WNR) MEDICARE (M) PART A December 08, 2013 PART A [id number] BRIGID RAMOS PATIENT Selected Encounter This section includes the information on record at [place] for the Encounter. Date/Time Encounter Type Encounter Description Reason Provider Source Jul 27, 2024 02:30 PM OFFICE O/P EST HI 40 MIN PM&RS PHYSICIAN ICD-10-CM M54.16 Radiculopathy , lumbar region YAIR FALCON [facility] Encounter Template Text not used by [place] Assessments - Encounter Diagnoses This section includes the primary and secondary diagnoses documented for the Encounter. Date/Time Primary/Secondary Diagnosis Diagnosis Name Provider Source Jul 27, 2024 03:47 PM PRIMARY Radiculopathy, lumbar region YAIR FALCON [facility] Plan of Treatment: Future Appointments (+ 6 months) and Future Tests (+/- 45 days) The Plan of Treatment section includes future care activities for the [facility] This section includes future appointments and future orders which are active, pending or scheduled. Future Appointments This section includes appointments that were scheduled to occur 6 months from the date of the Encounter, up to a maximum of 20 appointments. The data comes from all [place] treatment facilities. Appointment Date/Time Appointment Type Appointme nt Facility Name Aug 30, 2024 11:00 AM [facility] Sep 14, 2024 01:00 PM AMBULATORY - REHAB MEDICIN E [facility] Active, Pending, and Scheduled Orders This section includes a listing of several types of active, pending, and scheduled orders, including clinic medications orders, diagnostic test orders, procedure orders and consult orders; where the start date of the order is 45 days before the date of the Encounter or 45 days after the date of theEncounter. The data comes from all [facility]. Test Date/Time Test Type Test Details Facility Name Jul 05, 2024 09:45 AM Consult Order COMMUNITY CARE-ACUPUNCTURE Cons Dental Ceramist's Choice [facility] Aug 31, 2024 12:00 AM Laboratory - Chemi stry Order LIPID PANEL FASTING BLOOD (SST-SERUM) [facility] Aug 31, 2024 12:00 AM Laboratory - Chemi stry Order BASIC METABOLIC PANEL (fasting) BLOOD (SST-SERUM) [facility] Aug 31, 2024 12:00 AM Laboratory - Chemi stry Order LIVER FUNCTION BLOOD (SST-SERUM) [facility] Vital Signs: All taken on the encounter date This section contains inpatient and outpatient Vital Signs collected on the date of the Encounter. Date/Time Temperature Pulse Blood Pressure Respiratory Rate SP02 Pain Height Weight Body Mass Index Source Jul 27, 2024 03:22 PM 80 150/100 96 1 [facility] Jul 27, 2024 02:40 PM 140/80 [facility] Jul 27, 2024 02:31 PM 93 150/100 18 97 7 [facility] Social History: Smoking Status (Most current) and Tobacco Use (All prior to encounter date) This section includes the most current, and the historical, smoking and tobacco- related health factors from the [place] facility where the Encounter took place. Current Smoking Status This section includes the most current smoking, or tobacco-related health factor, from the [place] facility where the Encounter took place. Date/Time Current Smoking Status Comment Jose ity May 12, 2023 10:46 AM VA-TOBACCO NEVER USED [facility] Tobacco Use History This section includes a history of the smoking, or tobacco-related health factors, that were collected on or before the date of the Encounter. The data comes from the [place] facility where the Encounter took place. Date/Time Smoking Status/Tobacco Use Comment F acyonatan Oct 20, 2015 10:30 AM LIFETIME NON-TOBACCO USER [facility] Sep 19, 2009 11:13 AM LIFETIME NON-TOBACCO USER [facility] Advance Directives: All historical and current Section Date Range: From patient's date of to the date document was created. This section includes ALL of a patient's completed or amended [place] Advance and Rescinded Directives. The entries below indicate that a directive exists for the patient, but an actual copy is not included with this document. The data comes from all [place] facilities. Date Advance Directives Provider Source Mar 22, 2018 ADVANCE DIRECTIVE JASWANT DICKINSON [facility] Radiology Reports: +/- 30 days [...] the Encounter. The data comes from all [place] treatment facilities. Date/Time Radiology Report Provider Source Jul 27, 2024 02:52 PM FLUOROSCOPIC [place] NCE OF NEEDLE/SPINE: COLBY HARTLEY [id number] -[id number] M Exm Date: JUL 27, 2024@14:52 Req Phys: YAIR FALCON THI Pat Loc: CWM/NO/MED REHAB/SPINE INJ (Re Img Loc: [facility] 1 Service: Unknown [facility] [place] [place] [id number] (Case [id number] COMPLETE) FLUOROSCOPIC GUIDANCE OF NEEDLE/S(RAD Detailed) CPT:93110 Reason for Study: transforaminal epidural steroid injection Clinical History: Report Status: Verified Date Reported: JUL 27, 2024 Date Verified: JUL 27, 2024 Drill Bit Sharpener E-Sig:/ES/GREG OLIVIER JR Report: Study: Pain injection [...] Primary Interpreting Staff: GREG OLIVIER JR, Radiologist (Drill Bit Sharpener) /GREG GAITAN JR [facility] Encounter Notes: All associated encounter notes This section contains the clinical notes associated to the Encounter. Date/Time Encounter Note(s) Provider Source Jul 27, 2024 03:31 PM PHYSICAL MEDICINE REHAB NOTE: LOCAL TITLE: PM&R BACK/JOINT PROCEDURE NOTE STANDARD TITLE: PHYSICAL MEDICINE REHAB NOTE DATE OF NOTE: JUL 27, 2024@15:31 ENTRY DATE: JUL 27, 2024@15:31:53 AUTHOR: YAIR FALCON EXP COSIGNER: URGENCY: STATUS: COMPLETED PROCEDURE NOTE: LUMBAR/SACRAL TRANSFORAMINAL EPIDURAL STEROID INJECTION PROCEDURE: 1) Left L3-4 and right S1 transforaminal epidural steroid injection 2) Fluoroscopic needle guidance REASON FOR PROCEDURE: Lumbar radiculopathy PHYSICIAN: Yair Falcon DO MEDICATIONS INJECTED: 5mg of Dexamethasone + 1 ml of 1% Lidocaine at each level. Total dexamethasone: 10mg Lot #: [id number] Exp: LOCAL ANESTHETIC INJECTED: 1 mL of 1% lidocaine per site CONTRAST AGENT USED: 1.5mL of Omnipaque 300 Contrast AGENT WASTED: 0mL of Omnipaque 300 SEDATION MEDICATIONS: None ESTIMATED BLOOD LOSS: None COMPLICATIONS: None HISTORY: present with recurrence of low back pain. He had significant pain relief for 8 months status post left L3-4 and right S1 transforaminal epidural steroid injection on September 30, 2023. Pain is presently across the low back with intermittent radiation into bilateral hips, described as a pressure sensation. Very rarely does have symptoms shooting down into the left lateral thigh wrapping around to the knee. He did have a left knee arthroscopic surgery on 05/18/2024 with education that pain may continue until later this month, and functional impairments may persist until November 2024. Patient endorses intermittent numbness/tingling of the left lateral thigh. Pain has been upwards of 04/19 despite taking Belbuca, oxycodone prn, naproxen prn, and Tylenol prn. He is also getting chiropractic treatment and acupuncture. He employs relaxation techniques to address PTSD and anger issues. He has lost 60lbs so far, and diligently working on another 80lbs. He denies any new weakness other than postsurgical symptoms in the left knee. Denies bowel/bladder incontinence, fever, chills, or recent illnesses or vaccinations. EXAM: Vitals in chart. Awake, alert, in NAD. Obese gentleman. Left knee with post arthroscopic surgical scars. Chronic urticaria identified on the trunk and extremities with excoriation. Decent lumbar ROM with some restrictions in extension, rotation and lateral flexion. There is no gross atrophy of the extremities. No sensory change on the right side. On the left side he has some loss of vibration in the left L3 distribution. No gross weakness in bilateral lower extremities with exception of hip abduction. Mild Trendelenburg gait, non-spastic. CONSENT: verbal and written electronic consent in iMed. TIME OUT NOTE TIME: JUL 27, 2024@14:51 correctly stated: [X]Full name: COLBY HARTLEY ANGY [X]Last 4 of #: [id number] [X]: Apr STAFF NAME: Shaniqua Blake RN LOCATION: Marked site of injection on Bilateral low back. TECHNIQUE: Time-out was taken to identify the correct patient, procedure and side prior to starting the procedure. Lying in a prone position, the patient was prepped and draped in the usual sterile fashion using ChloraPrep and a fenestrated drape. The area to be injected was determined under fluoroscopic guidance. Local anesthetic was given by raising a skin wheal and going down to the hub of a 30-gauge 0.5-inch needle. The 3.5-inch 22-gauge Quincke needle was advanced toward the 6 o'clock position of the pedicle at each above-named nerve root level. The needle was advanced to the final position via a lateral fluoroscopic intermittent image. Omnipaque 300 was injected and showed epidural spread and there was no vascular runoff. After a negative aspiration, the medication was then injected. The procedure was completed without complications and was tolerated well. The patient was monitored after the procedure. The patient (or responsible constitution party) was given post-procedure and discharge instructions to follow at home. The patient was discharged in stable condition. Pre-procedure pain level: 02/16 Post-procedure pain level: 08/19 ASSESSMENT: 54 yo male with back pain due to lumbar radiculopathy. Medical comorbidities include BMI 45, HTN, depression, PTSD, MUSTAPHA, gout, and h/o knee pain s/p arthroscopic surgery on 05/18/24. PLAN: - Lumbar transforaminal epidural steroid injection provided today. - Post-injection follow-up with PM&R PA-C in 2-4 weeks. - Discharge instructions provided including the use of ice q2 hrs x 48 hrs prn post injection soreness/pain. - Continue with pain management by Dr. Joshua. - Commended patient on weight loss and encouraged to continue. - Con't chiro and acupuncture. - No medication changes. - Contact me with any issues/questions MDM: 50 minutes Medication Reconciliation: Outpatient: Has the patient been taking medications as documented in the EMLR? YES: The patient has been taking medications as documented in the EMLR. Essential Medication List for Review used to complete this medication reconciliation. INCLUDED IN THIS LIST: Alphabetical list of active outpatient prescriptions [facility]ensed from this [facility] (local) and dispensed from another [place] or [facility] facility (remote) as well as inpatient orders (local, pending and active), local clinic medications, locally documented non-VA medications, and local prescriptions that have or been discontinued in the past 90 days. - All changes in medications, including all non-VA/Herbal/OTC medications were entered into CPRS. - If there were any medications the patient should no longer take, they were discontinued. - The patient/caregiver was instructed to update this list, discard old lists, and take this list to the next appointment, whether with a VA or non-VA provider. /dheeraj/ YAIR FALCON DO CRUDE OIL DRIVER Signed: 07/27/2024 15:47 YAIR FALCON [place] [facility] [place] [facility] Jul 27, 2024 03:30 PM DISCHARGE NOTE: LOCAL TITLE: DISCHARGE INSTRUCTIONS/OUTPATIENT STANDARD TITLE: DISCHARGE NOTE DATE OF NOTE: JUL 27, 2024@15:30 ENTRY DATE: JUL 27, 2024@15:30:50 AUTHOR: YAIR FALCON EXP COSIGNER: URGENCY: STATUS: COMPLETED Your ATTENDING PHYSICIAN for today's injection is: Yair Falcon DO Reason for Visit: Left L3-4 and right S1 transforaminal epidural steroid injection - Physical/Activity Limitations: No strenous activity for 24 Hours - Diet: Resume Previous Diet - Medication reconciliation performed. Active Outpatient Medications (including Supplies): Active Outpatient Medications Status === 1) ACETAMINOPHEN 500MG TAB TAKE TWO TABLETS BY MOUTH THREE ACTIVE TIMES DAILY NEEDED Indication: FOR PAIN 2) BUPRENORPHINE 300MCG BUCCAL FILM PLACE ONE FILM BETWEEN ACTIVE CHEEK AND GUM UNTIL DISSOLVED TWICE DAILY Indication: FOR PAIN 3) CLOMIPHENE CITRATE 50MG TAB TAKE ONE-HALF TABLET BY MOUTH ACTIVE ONCE DAILY 4) LIDOCAINE 5% OINT APPLY THIN LAYER TOPICALLY TWICE DAILY TO ACTIVE THREE TIMES A DAY NEEDED Indication: FOR MINOR SKIN WOUND PAIN 5) LOSARTAN 100MG TAB TAKE ONE TABLET BY MOUTH ONCE DAILY FOR ACTIVE BLOOD PRESSURE/HEART 6) MONTELUKAST NA 10MG TAB TAKE ONE TABLET BY MOUTH AT BEDTIME ACTIVE Indication: FOR CONTROLLER MEDICATION FOR ASTHMA 7) NAPROXEN 500MG TAB TAKE ONE TABLET BY MOUTH TWICE DAILY TAKE ACTIVE WITH FOOD Indication: FOR INFLAMMATION 8) OXYCODONE HCL 5MG TAB NOT SA TAKE ONE TABLET BY MOUTH ACTIVE EVERY 12 HOURS NEEDED FOR PAIN 9) ROSUVASTATIN CA 40MG TAB TAKE ONE-HALF TABLET BY MOUTH AT ACTIVE BEDTIME FOR CHOLESTEROL Indication: FOR HIGH CHOLESTEROL 10) TABLET CUTTER (PILL SPLITTER) USE CUTTER DIRECTED ONCE ACTIVE DAILY TO SPLIT TABLETS No changes to current medications Resume your prior meds at you next regular scheduled dose except Aspirin, Plavix, Warfarin which can be restarted the next day if you are taking these medications. Medication Education 1. Take medications in the exact amount ordered by the clinician. Do not take more or less. 2. Keep each medication in the original and separate containers. 3. Ice every 2 hours as needed for post injection soreness/pain. Keep on for 15 minutes. Do not use heat within the first 48 hours unless specifically instructed by your doctor. 4. Keep a complete list of all your medications and share with all your health care providers, include all over the counter medications, vitamins or supplements. 5. Do not drink alcoholic beverage, drive or operate machinery, cook or make important decisions for twenty-four (24) hours. A responsible adult should remain with you for the next twenty-four hours and you should REST quietly during this time. Recommended plan for follow up: As scheduled Please call TELEPHONE ASSISTANCE if you experience: Fever 101.5, Dizziness or light-headedness, Redness, discharge, warmth to the touch or foul smelling discharge from wound, Shortness of breath, Nausea, vomiting, diarrhea, or no bowel movement for more than 48 hrs, Newly onset headache, Changes in behavior If you feel the medications are making you sick, your symptoms worsen or you are experiencing problems contact: TELEPHONE ASSISTANCE at [phone] or extension [phone] Or [phone] extension [phone] (HANNA Rowan) or extension [phone] (SUNIL Albarado) If you are in an emotional crisis, feeling suicidal or having any troubling or self-destructive or violent impulses - please call [phone] (or [phone]); press 1 for Veterans to ask for help 24hours per day. Discharge Instructions printed and given to patient: No. Verbal instructions provided due to COVID-19 restrictions. Patient/Caregiver verbalizes understanding of discharge instructions: Yes Diagnostic studies discussed with patient: N/A I have discussed these instructions with the patient/responsible adult and/or demonstrated appropriate care for the patient post discharge. A copy of these discharge instructions have been printed and given to the patient at the time of discharge. /dheeraj/ YAIR FALCON DO CRUDE OIL DRIVER Signed: 07/27/2024 15:31 YAIR FALCON [facility]
--- OUTSIDE RECORDS SUMMARY | 2024-08-18 09:56 | XMS_ITS | Encounter Summary ---
Author Name [facility] [facility] [place] [facility] [place] Address [address] [place] [id number] Care Team Providers Care Apprentice Photographer Name Role Phone EHSAN OVALLES Primary Care [...] PART A December 08, 2013 PART A [id number] [phone] BRIGID RAMOS Rhina PATIENT MEDICARE (WNR) MEDICARE (M) PART A December 08, 2013 PART A [id number] KONRADTASHIACRISTY BRIGID DAMICO PATIENT Selected Encounter This section includes the information on record at [place] for the Encounter. Date/Time Encounter Type Encounter Description Reason Provider Source Nov 11, 2023 10:00 AM OFFICE O/P EST LOW 20 MIN PRIMARY CARE/MEDICINE ICD-10-CM I10 Essential (primary) hypertension EHSAN OVALLES Encounter Template Text not used by [place] Assessments - Encounter Diagnoses This section includes the primary and secondary diagnoses documented for the Encounter. Date/Time Primary/Secondary Diagnosis Diagnosis Name Provider Source Nov 11, 2023 10:10 AM PRIMARY Essential (primary) hypertension MARILYN VALLECILLO [place] Nov 11, 2023 10:10 AM SECONDARY Hyperlipidemia, unspecified MARILYN VALLECILLO [place] Nov 11, 2023 10:10 AM SECONDARY Other obesity MARILYN VALLECILLO [place] Plan of Treatment: Future Appointments (+ 6 months) and Future Tests (+/- 45 days) The Plan of Treatment section includes future care activities for the patient from all [place] [facility]. This section includes future appointments and future orders which are active, pending or scheduled. Future Appointments This section includes appointments that were scheduled to occur 6 months from the date of the Encounter, up to a maximum of 20 appointments. The data comes from all [place] treatment facilities. Appointment Date/Time Appointment Type Appointme nt Facility Name Nov 24, 2023 09:30 AM AMBULATORY - MEDICINE [place] [facility] [place] [facility] Nov 26, 2023 10:30 AM AMBULATORY - REHAB MEDICIN E [place] Dec 01, 2023 09:45 AM AMBULATORY - MEDICINE [place] [facility] [place] [facility] Dec 01, 2023 03:30 PM AMBULATORY - REHAB MEDICIN [facility] Dec 08, 2023 09:00 AM AMBULATORY - REHAB MEDICIN E [place] January 05, 2024 01:00 PM AMBULATORY - REHAB MEDICIN E [place] [facility] [place] [facility] Jan 15, 2024 09:30 AM AMBULATORY - REHAB MEDICIN E [place] Feb 23, 2024 09:00 AM AMBULATORY - MEDICINE [place] [facility] [place] [facility] Feb 25, 2024 01:00 PM AMBULATORY - REHAB MEDICIN [place] [facility] [place] [facility] Mar 21, 2024 10:00 AM AMBULATORY - MEDICINE [place] [facility] [place] [facility] Mar 24, 2024 01:00 PM AMBULATORY - MEDICINE [place] [facility] [place] [facility] Apr 06, 2024 10:00 AM AMBULATORY - MEDICINE [place] [facility] [place] [facility] Lab Results: +/- 30 days of the encounter This section includes the Chemistry and Hematology Lab Results on record with [place] for the patient. Radiology Reports and Pathology Reports are provided separately, in subsequent sections. Lab Results This section contains the Chemistry/Hematology Results that were resulted 30 days before or 30 daysafter the date of the Encounter. Date/Time Source Result Type Result - Unit Interpretation Reference Range Comment Nov 09, 2023 08:51 AM [place] [facility] [place] [facility] LIPID PANEL FASTING Specimen Type: SERUM No comment entered. Ordering Provider: EHSAN OVALLES Report Released Date/Time: May 12, 2023 10:46 AM Reporting Lab: [address] [address] Performing Lab: [address] [address] CHOLESTEROL 286 mg/dL H TRIGLYCERIDE 111 mg/dL 0-150 LDL calculated 226 mg/dL H 0-129 CHOL/HDL 7.5 HDL CHOLESTEROL 38 mg/dL L 40-60 Nov 09, 2023 08:51 AM [facility] LIVER FUNCTION Specimen Type: SERUM No comment entered. Ordering Provider: EHSAN OVALLES Report Released Date/Time: May 12, 2023 10:46 AM Reporting Lab: [address] [address] Performing Lab: [address] [address] PROTEIN,TOTAL 7.2 g/dL 6.0-8.3 ALBUMIN 4.0 g/dL 3.5-5.0 ALKALINE PHOSPHATASE 68 U/L 40-150 AST 21 U/L 5-34 ALT 40 U/L BILIRUBIN, TOTAL 0.6 mg/dL 0.2-1.2 Nov 09, 2023 08:51 AM [facility] BASIC METABOLIC PANEL (fasting) Specimen Type: SERUM No comment entered. Ordering Provider: EHSAN OVALLES Report Released Date/Time: May 12, 2023 10:46 AM Reporting Lab: [address] [address] Performing Lab: [address] [address] UREA NITROGEN 25 mg/dL 7-25 GLUCOSE 97 [...] and tobacco- related health factors from the [place] facility where the Encounter took place. Current Smoking Status This section includes the most current smoking, or tobacco-related health factor, from the [place] facility where the Encounter took place. Date/Time Current Smoking Status Comment Jose ity May 26, 2022 10:00 AM [place]-TOBACCO NEVER USED [place] Tobacco Use History This section includes a history of the smoking, or tobacco-related health factors, that were collected on or before the date of the Encounter. The data comes from the [place] facility where the Encounter took place. Date/Time Smoking Status/Tobacco Use Comment F acility May 21, 2021 03:00 PM [place]-TOBACCO NEVER USED [place] Aug 08, 2019 11:05 AM VA-TOBACCO NEVER USED [place] Jun 28, 2018 03:14 PM [place]-TOBACCO NEVER USED [place] May 28, 2017 08:56 AM LIFETIME NON-TOBACCO USER [place] Advance Directives: All historical and current Section Date Range: From patient's date of to the date document was created. This section includes ALL of a patient's completed or amended [place] Advance and Rescinded Directives. The entries below indicate that a directive exists for the patient, but an actual copy is not included with this document. The data comes from all [place] facilities. Date Advance Directives Provider Source Mar 22, 2018 ADVANCE DIRECTIVE JASWANT DICKINSON [place] Val [facility] Encounter Notes: All associated encounter notes This section contains the clinical notes associated to the Encounter. Date/Time Encounter Note(s) Provider Source Nov 11, 2023 10:12 AM PREVENTIVE MEDICIN E NURSING NOTE: LOCAL TITLE: CLINICAL REMINDERS/NURSING STANDARD TITLE: PREVENTIVE MEDICINE NURSING NOTE DATE OF NOTE: NOV 11, 2023@10:12 ENTRY DATE: NOV 11, 2023@10:12:33 AUTHOR: ADEN VALLECILLO COSIGNER: URGENCY: STATUS: COMPLETED Advance Directive Screen MH AD: Patient has an Advance Directive on file at this [facility]. No updates are needed at this time. The patient received education about Advance Directives and written notification of his/her rights. Homelessness/Food Insecurity Screen: In the past 2 months, have you been living in stable housing that you own, rent, or stay in as part of a household? Yes - Living in stable housing. Are you worried or concerned that in the next 2 months you may NOT have stable housing that you own, rent, or stay in as part of a household? No - Not worried about housing near future The reports the following: Within the past 12 months, you worried whether your food would run out before you got money to buy more. Never true Within the past 12 months, the food you bought just didn't last and you didn't have money to get more. Never true COVID-19 Immunization: Defer vaccine, reassess in 1 year Reason: decline HTN Assess for Elevated BP>=140/90: Herpes Zoster (Shingles) Vaccine: The patient declines to receive the recommended dose of zoster (shingles) vaccine. Immunization: ZOSTER RECOMBINANT Refusal Reason: PATIENT DECISION Patient refuses all immunization(s) in the ZOSTER group Date Documented: 11/11/23 10:13 RHS Screen: RHS Screen Session Format: Face to Face Environmental Check Upon inquiry, the individual reports that the environment is safe to proceed. Informed Consent to Screen and Document The individual consents to proceed with screening. The individual consents to documentation of responses. PRIMARY SCREEN: In the past 12 months, how often did a current or former intimate partner (e.g., boyfriend, girlfriend, , , sexual partner): 1. Scream or curse at you Never 2. Insult or talk down to you Never 3. Threaten you with harm Never 4. Physically hurt you Never 5. Force or pressure you to have sexual contact against your will, or when you were unable to say no Never ?? The HITS tool (items 1-4 above) is [place] copyright protected by Howard Lovelace MD, and the user has full rights to use it throughout the [place] system. PRIMARY SCREEN RESULT: The Primary Screen is NEGATIVE. The individual answered never to all forms of IPV above (i.e., answered never to all 5 items) The individual accepts education and/or resources: No EDUCATION: The individual indicated readiness to learn. Education offered during this session as noted above. The individual indicated understanding by asking relevant questions and making appropriate comments. No barriers to learning were observed or identified. /dheeraj/ ADEN VALLECILLO LPN PACT 10 Signed: 11/11/2023 10:14 ADEN VALLECILLO Nov 11, 2023 05:50 AM PHYSICIAN NOTE: LOCAL TITLE: MD NOTE STANDARD TITLE: PHYSICIAN NOTE DATE OF NOTE: NOV 11, 2023@05:50 ENTRY DATE: NOV 11, 2023@05:50:33 AUTHOR: EHSAN OVALLES EXP COSIGNER: URGENCY: STATUS: COMPLETED HISTORY OF PRESENT ILLNESS: COLBY HARTLEY, is a 53 yo MALE , who presents at the [facility] for f/u to hypertension, hyperlipidemia, and weight check. Labs completed. Active problems - Computerized Problem List is the source for the followin. Left knee pain 2. Chronic low back pain 3. Chronic esophagitis 4. Obesity 5. Constrictive tenosynovitis 6. Erectile dysfunction 7. Obstructive sleep apnea syndrome 8. Hyperlipidemia 9. Posttraumatic stress disorder 10. Depression 11. Hypertension 12. Gout 13. Traumatic brain injury 14. Asthma The following VA and Non-VA meds were reconciled with patient: Active Outpatient Medications (including Supplies): Issue Date Status Last Fill Active Outpatient Medications Refills Expiration ======= 1) ACETAMINOPHEN 500MG TAB Qty: 200 for 30 ACTIVE Issu:03-11-23 days Sig: TAKE TWO TABLETS BY MOUTH Refills: 4 Last:08-13-23 THREE TIMES DAILY NEEDED FOR PAIN Expr:03-11-24 2) ALBUTEROL 90MCG (CFC-F) 200D ORAL INHL ACTIVE Issu:05-12-23 Qty: 3 for 90 days Sig: INHALE 2 Refills: 3 Last:05-26-23 PUFFS BY MOUTH FOUR TIMES DAILY Expr:05-12-24 NEEDED FOR SHORTNESS OF BREATH 3) BUPRENORPHINE 300MCG BUCCAL FILM Qty: ACTIVE Issu:09-08-23 60 for 30 days Sig: PLACE ONE FILM Refills: 2 Last:10-12-23 BETWEEN CHEEK AND GUM UNTIL DISSOLVED Expr:03-10-24 EVERY 12 HOURS FOR PAIN 4) CHOLECALCIF 50MCG (D3-2,000UNIT) TAB ACTIVE Issu:05-12-23 Qty: 200 for 90 days Sig: TAKE TWO Refills: 3 Last:08-07-23 TABLETS BY MOUTH EVERY DAY FOR VITAMIN Expr:05-12-24 SUPPLEMENTATION 5) CLOMIPHENE CITRATE 50MG TAB Qty: 30 for ACTIVE Issu:11-03-23 60 days Sig: TAKE ONE-HALF TABLET BY Refills: 2 Last:11-03-23 MOUTH ONCE DAILY Expr:11-03-24 6) DICLOFENAC NA 1% TOP GEL Qty: 300 for ACTIVE Issu:03-11-23 30 days Sig: APPLY 4 GRAMS TOPICALLY Refills: 3 Last:03-11-23 FOUR TIMES A DAY FOR OSTEOARTHRITIS - Expr:03-11-24 USE DOSING CARD PROVIDED IN BOX 7) FLUTICAS 500/SALMETEROL 50 INHL DISK 60 ACTIVE Issu:05-12-23 Qty: 3 for 90 days Sig: INHALE 1 PUFF Refills: 3 Last:07-24-23 BY MOUTH TWICE DAILY - RINSE MOUTH Expr:05-12-24 AFTER USE 8) LIDOCAINE 5% OINT Qty: 105 for 30 days ACTIVE Issu:08-14-23 Sig: APPLY THIN LAYER TOPICALLY TWICE Refills: 3 Last:08-16-23 DAILY TO THREE TIMES A DAY NEEDED Expr:08-14-24 FOR MINOR SKIN WOUND PAIN 9) LOSARTAN 100MG TAB Qty: 90 for 90 days ACTIVE Issu:05-12-23 Sig: TAKE ONE TABLET BY MOUTH ONCE Refills: 2 Last:09-25-23 DAILY FOR BLOOD PRESSURE/HEART Expr:05-12-24 10) MONTELUKAST NA 10MG TAB Qty: 90 for 90 ACTIVE Issu:10-29-23 days Sig: TAKE ONE TABLET BY MOUTH AT Refills: 3 Last:10-29-23 BEDTIME FOR CONTROLLER MEDICATION FOR Expr:10-29-24 ASTHMA 11) NAPROXEN 500MG TAB Qty: 60 for 30 days ACTIVE Issu:11-05-23 Sig: TAKE ONE TABLET BY MOUTH TWICE Refills: 1 Last:11-05-23 DAILY TAKE WITH FOOD Expr:11-05-24 12) OMEPRAZOLE 20MG EC CAP Qty: 180 for 90 ACTIVE Issu:05-12-23 days Sig: TAKE ONE CAPSULE BY MOUTH Refills: 3 Last:07-24-23 TWICE DAILY Expr:05-12-24 13) PRAZOSIN HCL 1MG CAP Qty: 90 for 30 ACTIVE Issu:12-02-22 days Sig: TAKE THREE CAPSULES BY Refills: 1 Last:12-04-22 MOUTH AT BEDTIME TAKE DOSE AT 11 PM. Expr:12-03-23 14) PREGABALIN 75MG ORAL CAP Qty: 60 for 30 ACTIVE Issu:11-05-23 days Sig: TAKE ONE CAPSULE BY MOUTH Refills: 2 Last:11-05-23 TWICE DAILY FOR PAIN Expr:05-07-24 15) SILDENAFIL CITRATE 100MG TAB Qty: 6 for ACTIVE Issu:11-13-22 30 days Sig: TAKE ONE TABLET BY MOUTH Refills: 9 Last:04-17-23 ONCE DAILY NEEDED TAKE 1 HOUR Expr:11-14-23 PRIOR TO SEXUAL ACTIVITY 16) TESTOSTERONE CYP 200MG/ML 1ML IN OIL ACTIVE Issu:10-15-23 Qty: 4 for 28 days Sig: INJECT 0.5ML Refills: 5 Last:10-15-23 (100MG) INTRAMUSCULARLY ONCE A WEEK Expr:04-16-24 VIALS ARE ONLY TO BE USED ONE TIME ALLERGIES: ========= PENICILLIN, MUSHROOMS, MELOXICAM LAB HISTORY: CHEM 7 TREND Collection DT Spec GLUCOSE BUN CREATIN Sodium K+/Pot CL CO2 11/09/2023 08:51 SERUM 97 25 1.12 141 4.5 104 28 05/08/2023 08:47 SERUM 92 28 H 1.02 139 4.2 104 26 11/11/2022 07:51 SERUM 91 24 1.05 141 4.4 104 26 05/22/2022 07:34 SERUM 95 21 1.14 140 4.2 104 27 11/15/2021 08:15 SERUM 97 19 1.06 139 4.0 105 26 LIPID PANEL TREND Collection DT Spec CHOL HDL CHO/HDL LDL-c TRIG 11/09/2023 08:51 SERUM 286 H 38 L 7.5 226 H 111 05/08/2023 08:47 SERUM 203 H 36 L 5.6 149 H 91 11/11/2022 07:51 SERUM 214 H 38 L 5.6 158 H 89 05/22/2022 07:34 SERUM 197 36 L 5.5 145 H 79 11/15/2021 08:15 SERUM 187 35 L 5.3 139 H 65 LIVER PANEL TREND Collection DT Spec AST ALT T BILI ALK JORGE LUIS T. PROT ALBUMIN 11/09/2023 08:51 SERUM 21 40 0.6 68 7.2 4.0 05/08/2023 08:47 SERUM 19 38 0.7 74 7.4 4.2 11/11/2022 07:51 SERUM 19 38 0.7 61 7.1 4.1 05/22/2022 07:34 SERUM 17 34 1.0 68 7.2 4.0 11/15/2021 08:15 SERUM 20 40 0.7 62 6.8 3.9 HISTORY: PERIOD OF SERVICE - [facility] [employer] FROM May TO Aug COMBAT SERVICE INDICATED: No VITAL SIGNS: Blood Pressure 144/82 (11/11/2023 10:11)Repeat BP: 137/87 Pulse 74 (11/11/2023 10:11) Respiration 16 (11/11/2023 10:11) Pulse Oximetry 95% (11/11/2023 10:11) Temperature 97.6 F [36.4 C] (11/11/2023 10:11) Pain 0 (11/11/2023 10:11) Height 72 in [182.9 cm] (11/11/2023 10:11) Weight 316.8 lb [143.70 kg] (11/11/2023 10:11) BMI BMI: 43.1 REVIEW OF SYSTEMS: CARDIOVASCULAR: No chest pain, no palpitations RESPIRATORY: No SOB, no wheezing GASTROINTESTINAL: No abd pain, no N/V/D, no change in stool MUSCULOSKELETAL: No joint pain, no joint swelling NEUROLOGIC: No H/A, no numbness, no weakness, no tingling EXAMINATION: GENERAL: WD/WN , pleasant & in NAD HEENT: Moist mucosa NECK: Supple, no carotid bruits HEART: RRR, S1-S2, no murmurs LUNGS: CTA B/L, no wheezes ABDOMEN: Soft, NT/ND, + BS x 4 Quads PERIPH PULSES: 2+ B/L EXTREMITIES: FROM x 4, no edema NEUROLOGIC: AAO x3, no focal findings PSYCHIATRIC: Good eye contact, affect normal ASSESSMENT/PLAN: 1. Hypertension: well controlled on losartan 100mg/day 2. Hyperlipidemia: advised dietary modifications Collection DT Spec CHOL HDL CHO/HDL LDL-c TRIG 11/09/2023 08:51 SERUM 286 H 38 L 7.5 226 H 111 05/08/2023 08:47 SERUM 203 H 36 L 5.6 149 H 91 3. Obesity: BMI ~43, encouraged continued weight loss He is congratulated on the success of weight reduction. He has lost 30 pounds from July and a grand total of 60 pounds. 4. Colonoscopy Screening: placed consults twice (2020 & 2021) but pt failed to respond to outreach attempts, resubmitted consult 11/13/22 - appt scheduled for 06/15/23 but vet did not attend, provided FIT card today FOLLOW UP: 6 mths - AWE - FBW prior ========= UPCOMING APPOINTMENTS: 11/24/2023 09:30 CWM/NO/VVC/PAIN 1 11/26/2023 10:30 CWM/SO/PHYSICAL THERAPY B 01/05/2024 13:00 CWM/NO/MEDICAL REHAB B 03/21/2024 10:00 CWM/NO/OPTOMETRY/MERHAR No barriers; Patient understands and agrees to current treatment plan. If pt has any questions, concerns, or changes in current health status he/she will call or come in to the VA. Medication Reconciliation: Outpatient: Has the patient been taking medications as documented in the EMLR? YES: The patient has been taking medications as documented in the EMLR. Essential Medication List for Review used to complete this medication reconciliation. INCLUDED IN THIS LIST: Alphabetical list of active outpatient prescriptions dispensed from this VA (local) and dispensed from another VA or DoD facility (remote) as well as inpatient orders [...] whether with a VA or non-VA provider. JLV Link Data on this list may not be complete. Please check JLV. Allergies/ADRs (Tool #5) FACILITY ALLERGY/ADR -------- CLNCL/HLTH MADDY REPT EFF [id number] PENICILLINS [facility] [place] [facility] MELOXICAM [facility] [place] [facility] MUSHROOMS [facility] [place] [facility]ENICILLIN [facility]IC[facility] MUSHROOMS [place] [facility] PENICILLIN Med Recon Irineo (Tool #1) INCLUDED IN THIS LIST: Alphabetical list of active outpatient prescriptions dispensed from this [place] (local) and dispensed from another [place] or [facility] facility (remote) as well as inpatient orders (local pending and active), local clinic medications, locally documented non-VA medications, and local prescriptions that have or been discontinued in the past 90 days. Non-VA Meds Last Documented On: Data not found NOTE The display of VA prescriptions dispensed from another [place] or [place] facility (remote) is limited to active outpatient prescription entries matched to National Drug File at the originating site and may not include some items such as investigational drugs, compounds, etc. NOT INCLUDED IN THIS LIST: Medications self-entered by the patient into personal health records (i.e. [employer]) are NOT included in this list. Non-VA medications documented outside this [place], remote inpatient orders (regardless of status) and remote clinic medications are NOT included in this list. The patient and provider must always discuss medications the patient is taking, regardless of where the medication was dispensed or obtained. ------ OUTPT ACETAMINOPHEN 500MG TAB (Status = Active) TAKE TWO TABLETS BY MOUTH THREE TIMES DAILY NEEDED FOR PAIN Rx# [id number] Last Released: 08/18/23 Qty/Days Supply: 200/30 Rx Expiration Date: 03/11/24 Refills Remainin Indication: FOR PAIN OUTPT ALBUTEROL 90MCG (CFC-F) 200D ORAL INHL (Status = Active) INHALE 2 PUFFS BY MOUTH FOUR TIMES DAILY NEEDED FOR SHORTNESS OF BREATH Rx# [id number] Last Released: 05/19/23 Qty/Days Supply: Rx Expiration Date: 05/12/24 Refills Remainin OUTPT BUPRENORPHINE 20MCG/HR PATCH (Status = Discontinued) APPLY 1 PATCH TO SKIN EVERY 7 DAYS (REMOVE PATCH BEFORE APPLYING A NEW PATCH) NOTE NEW PATCH STRENGTH Rx# [id number] Last Released: 07/28/23 Qty/Days Supply: 12/05 Rx Expiration Date: 01/28/24 Refills Remainin Indication: FOR PAIN OUTPT BUPRENORPHINE 300MCG BUCCAL FILM (Status = Active) PLACE ONE FILM BETWEEN CHEEK AND GUM UNTIL DISSOLVED EVERY 12 HOURS FOR PAIN Rx# [id number] Last Released: 10/13/23 Qty/Days Supply: 60 Rx Expiration Date: 03/10/24 Refills Remainin Indication: FOR PAIN OUTPT CHOLECALCIF 50MCG (D3-2,000UNIT) TAB (Status = Active) TAKE TWO TABLETS BY MOUTH EVERY DAY FOR VITAMIN SUPPLEMENTATION Rx# [id number] Last Released: 08/05/23 Qty/Days Supply: 200/90 Rx Expiration Date: 05/12/24 Refills Remainin OUTPT CLOMIPHENE CITRATE 50MG TAB (Status = ) TAKE ONE-HALF TABLET BY MOUTH ONCE DAILY Rx# [id number] Last Released: 07/03/23 Qty/Days Supply: Rx Expiration Date: 09/28/23 Refills Remainin OUTPT CLOMIPHENE CITRATE 50MG TAB (Status = Active) TAKE ONE-HALF TABLET BY MOUTH ONCE DAILY Rx# [id number] Last Released: 11/04/23 Qty/Days Supply: Rx Expiration Date: 11/03/24 Refills Remainin OUTPT DICLOFENAC NA 1% TOP GEL (Status = Active) APPLY 4 GRAMS TOPICALLY FOUR TIMES A DAY FOR OSTEOARTHRITIS - USE DOSING CARD PROVIDED IN BOX Rx# [id number] Last Released: 03/11/23 Qty/Days Supply: 300/30 Rx Expiration Date: 03/11/24 Refills Remainin Indication: FOR JOINT PAIN OUTPT FLUTICAS 500/SALMETEROL 50 INHL DISK 60 (Status = Active) INHALE 1 PUFF BY MOUTH TWICE DAILY - RINSE MOUTH AFTER USE Rx# [id number] Last Released: 07/16/23 Qty/Days Supply: Rx Expiration Date: 05/12/24 Refills Remainin OUTPT LIDOCAINE 5% OINT (Status = Active) APPLY THIN LAYER TOPICALLY TWICE DAILY TO THREE TIMES A DAY NEEDED FOR MINOR SKIN WOUND PAIN Rx# [id number] Last Released: 08/18/23 Qty/Days Supply: Rx Expiration Date: 08/14/24 Refills Remainin Indication: FOR MINOR SKIN WOUND PAIN OUTPT LOSARTAN 100MG TAB (Status = Active) TAKE ONE TABLET BY MOUTH ONCE DAILY FOR BLOOD PRESSURE/HEART Rx# [id number] Last Released: 09/28/23 Qty/Days Supply: Rx Expiration Date: 05/12/24 Refills Remainin OUTPT MONTELUKAST NA 10MG TAB (Status = Active) TAKE ONE TABLET BY MOUTH AT BEDTIME FOR CONTROLLER MEDICATION FOR ASTHMA Rx# [id number] Last Released: 10/30/23 Qty/Days Supply: Rx Expiration Date: 10/29/24 Refills Remainin Indication: FOR CONTROLLER MEDICATION FOR ASTHMA OUTPT NAPROXEN 500MG TAB (Status = Discontinued) TAKE ONE TABLET BY MOUTH TWICE DAILY TAKE WITH FOOD Rx# [id number] Last Released: 07/28/23 Qty/Days Supply: Rx Expiration Date: 08/27/23 Refills Remainin Indication: FOR INFLAMMATION OUTPT NAPROXEN 500MG TAB (Status = Discontinued) TAKE ONE TABLET BY MOUTH TWICE DAILY TAKE WITH FOOD Rx# [id number] Last Released: 10/10/23 Qty/Days Supply: 30 Rx Expiration Date: 08/13/24 Refills Remainin Indication: FOR INFLAMMATION OUTPT NAPROXEN 500MG TAB (Status = Active) TAKE ONE TABLET BY MOUTH TWICE DAILY TAKE WITH FOOD Rx# [id number] Last Released: 11/05/23 Qty/Days Supply: 6030 Rx Expiration Date: 11/05/24 Refills Remainin Indication: FOR INFLAMMATION OUTPT OMEPRAZOLE 20MG EC CAP (Status = Active) TAKE ONE CAPSULE BY MOUTH TWICE DAILY Rx# [id number] Last Released: 07/16/23 Qty/Days Supply: 180/ Rx Expiration Date: 05/12/24 Refills Remainin OUTPT OXYCODONE HCL 5MG TAB NOT SA (Status = Discontinued) TAKE TWO TABLETS BY MOUTH TWICE DAILY NEEDED Rx# [id number] Last Released: 07/28/23 Qty/Days Supply: 06/03 Rx Expiration Date: 08/27/23 Refills Remainin Indication: FOR PAIN OUTPT OXYCODONE HCL 5MG TAB NOT SA (Status = Discontinued) TAKE TWO TABLETS BY MOUTH TWICE DAILY NEEDED FOR PAIN NOT FOR USE EVERY DAY (NEXT FILL 09/10/23) Rx# [id number] Last Released: 08/13/23 Qty/Days Supply: Rx Expiration Date: 09/12/23 Refills Remainin Indication: FOR PAIN OUTPT OXYCODONE HCL 5MG TAB NOT SA (Status = ) TAKE TWO TABLETS BY MOUTH TWICE DAILY NEEDED FOR PAIN NOT FOR USE EVERY DAY (NEXT FILL 10/08/23) Rx# [id number] Last Released: 09/10/23 Qty/Days Supply: Rx Expiration Date: 10/08/23 Refills Remainin Indication: FOR PAIN OUTPT PRAZOSIN HCL 1MG CAP (Status = Active) TAKE THREE CAPSULES BY MOUTH AT BEDTIME TAKE DOSE AT 11 PM. Rx# [id number] Last Released: 12/08/22 Qty/Days Supply: 90 Rx Expiration Date: 12/03/23 Refills Remainin Indication: OFF LABEL FOR N[place]MAR[place] OUTPT PREGABALIN 100MG ORAL CAP (Status = Discontinued) TAKE ONE CAPSULE BY MOUTH TWICE DAILY FOR PAIN Rx# [id number] Last Released: 09/10/23 Qty/Days Supply: 6030 Rx Expiration Date: 03/10/24 Refills Remainin Indication: FOR PAIN OUTPT PREGABALIN 50MG ORAL CAP (Status = Discontinued) TAKE ONE CAPSULE BY MOUTH TWICE DAILY FOR 3 DAYS, THEN TAKE TWO CAPSULES TWICE DAILY Rx# [id number] Last Released: 08/13/23 Qty/Days Supply: 114 Rx Expiration Date: 09/12/23 Refills Remainin Indication: FOR NERVE PAIN OUTPT PREGABALIN 75MG ORAL CAP (Status = Active) TAKE ONE CAPSULE BY MOUTH TWICE DAILY FOR PAIN Rx# [id number] Last Released: 11/05/23 Qty/Days Supply: Rx Expiration Date: 05/07/24 Refills Remainin Indication: FOR PAIN OUTPT SILDENAFIL CITRATE 100MG TAB (Status = Active) TAKE ONE TABLET BY MOUTH ONCE DAILY NEEDED TAKE 1 HOUR PRIOR TO SEXUAL ACTIVITY Rx# [id number] Last Released: 04/17/23 Qty/Days Supply: 02/06 Rx Expiration Date: 11/14/23 Refills Remainin Indication: FOR ERECTILE DYSFUNCTION OUTPT TESTOSTERONE CYP 200MG/ML 1ML IN OIL (Status = Active) INJECT 0.5ML (100MG) INTRAMUSCULARLY ONCE A WEEK VIALS ARE ONLY TO BE USED ONE TIME Rx# [id number] Last Released: 10/19/23 Qty/Days Supply: 12/05 Rx Expiration Date: 04/16/24 Refills Remainin ------ SUPPLIES ------ Home Telehealth ([facility]) [facility]: [facility]. HTN Assess for Elevated BP>=140/90: Repeat blood pressure: 137/87 /es/ EHSAN OVALLES MD Primary Care Physician Signed: 11/11/2023 10:58 EHSAN OVALLES [place]
--- OUTSIDE RECORDS SUMMARY | 2024-08-18 09:56 | XMS_ITS ---
Author Name [place] Organization [place] Address [address] [place] [address] Care Team Providers Care Location Analyst Name Role Phone EHSAN OVALLES Primary Care [...] PART A December 08, 2013 PART A [id number] 62A KONRADDENTONMartin DAMICOBRIGID Lantigua PATIENT MEDICARE (WNR) MEDICARE (M) PART A December 08, 2013 PART A [id number] 62A KONRADBRIGID KRAMER PATIENT Selected Encounter This section includes the information on record at [place] for the Encounter. Date/Time Encounter Type Encounter Description Reason Provider Source Jul 20, 2024 12:13 PM Outpatient Encounter PRIMARY CARE/MEDICINE TAMEKA DOSS Encounter Template Text not used by [place] Plan of Treatment: Future Appointments (+ 6 [...] 20 appointments. The data comes from all [facility]. Appointment Date/Time Appointment Type Appointme nt Facility Name Jul 27, 2024 02:30 PM AMBULATORY - REHAB MEDICIN E [facility] Aug 30, 2024 11:00 AM AMBULATORY - MEDICINE [facility] Sep 14, 2024 01:00 PM AMBULATORY - REHAB MEDICIN E [facility] Active, Pending, and Scheduled Orders This section includes a listing of several types of active, pending, and scheduled orders, including clinic medications orders, diagnostic test orders, procedure orders and consult orders; where the start date of the order is 45 days before the date of the Encounter or 45 days after the date of theEncounter. The data comes from all [facility]. Test Date/Time Test Type Test Details Facility Name Jul 05, 2024 09:45 AM Consult Order COMMUNITY CARE-ACUPUNCTURE Cons Trade Union Secretary's Choice [facility] Aug 31, 2024 12:00 AM Laboratory - Chemi stry Order LIPID PANEL FASTING BLOOD (SST-SERUM) [facility] Aug 31, 2024 12:00 AM Laboratory - Chemi stry Order LIVER FUNCTION BLOOD (SST-SERUM) [facility] Aug 31, 2024 12:00 AM Laboratory - Chemi stry Order BASIC METABOLIC PANEL (fasting) BLOOD (SST-SERUM) [facility] Social History: Smoking Status (Most current) and Tobacco Use (All prior to encounter date) This section includes the most current, and the historical, smoking and tobacco- related health factors from the [place] facility where the Encounter took place. Current Smoking Status This section includes the most current smoking, or tobacco-related health factor, from the [place] facility where the Encounter took place. Date/Time Current Smoking Status Comment Facil ity May 12, 2023 10:46 AM VA-TOBACCO NEVER USED [facility] Tobacco Use History This section includes a history of the smoking, or tobacco-related health factors, that were collected on or before the date of the Encounter. The data comes from the [place] facility where the Encounter took place. Date/Time Smoking Status/Tobacco Use Comment F acility Oct 20, 2015 10:30 AM LIFETIME NON-TOBACCO USER [facility] Sep 19, 2009 11:13 AM LIFETIME NON-TOBACCO USER [facility] Advance Directives: All historical and current Section Date Range: From patient's date of to the date document was created. This section includes ALL of a patient's completed or amended [place] Advance and Rescinded Directives. The entries below indicate that a directive exists for the patient, but an actual copy is not included with this document. The data comes from all [place] facilities. Date Advance Directives Provider Source Mar 22, 2018 ADVANCE DIRECTIVE JASWANT DICKINSON [facility] Radiology Reports: +/- 30 days of [...] the Encounter. The data comes from all [place] treatment facilities. Date/Time Radiology Report Provider Source Jul 27, 2024 02:52 PM FLUOROSCOPIC [place] NCE OF NEEDLE/SPINE: ODILIADONELL [id number] -1970 M Exm Date: JUL 27, 2024@14:52 Req Phys: YAIR FALCON SINAN [facility] Loc: CWM/NO/MED REHAB/SPINE INJ (Re Img Loc: [facility] Service: [place] [address] (Case [id number] COMPLETE) FLUOROSCOPIC GUIDANCE OF NEEDLE/S(RAD Detailed) CPT:24616 Reason for Study: transforaminal epidural steroid injection Clinical History: Report Status: Verified Date Reported: JUL 27, 2024 Date Verified: JUL 27, 2024 Bolt Sawyer E-Sig:/ES/GREG OLIVIER JR Report: Study: Pain injection [...] Primary Interpreting Staff: GREG OLIVIER JR, Radiologist (Bolt Sawyer) /GREG GAITAN JR [facility] Encounter Notes: All associated encounter notes This section contains the clinical notes associated to the Encounter. Date/Time Encounter Note(s) Provider Source Jul 20, 2024 12:13 PM PRIMARY CARE SECUR E MESSAGING: LOCAL TITLE: PRIMARY CARE SECURE MESSAGING STANDARD TITLE: PRIMARY CARE SECURE MESSAGING DATE OF NOTE: JUL 20, 2024@12:13 ENTRY DATE: JUL 20, 2024@12:13:54 AUTHOR: TAMEKA DOSS EXP COSIGNER: URGENCY: STATUS: COMPLETED ------Original Message ------ Sent: 07/20/2024 09:08 AM ET From: DONELL HARTLEY To: Adarsh OVALLES_PRIMARY CARE_[facility] Subject: Medication:Referral and clearance Hello, I'm supposed to be having a colonoscopy on the . They need a letter of clearance from the multiple punch press operator before they perform that procedure. Is there anyway I can get that? Also, I am out of testosterone and Dr. Shelley won't refill it until I see him and I have no more referrals to see him. Is there anyway you can obtain that? Thanks in advance, Donell Becerril /dheeraj/ TAMEKA DOSS, RN REGISTERED NURSE Signed: 07/20/2024 12:13 TAMEKA DOSS [facility]
--- OUTSIDE RECORDS SUMMARY | 2024-08-18 09:56 | XMS_ITS ---
Author Name [place] Organization [place] Address [address] [place] [address] Care Team Providers Care Freight Representative Name Role Phone TRACY OVALLES Primary Care Provider Unavailabl e Insurance [...] PART A December 08, 2013 PART A [id number] 62A KONRADDENTONMartin MARGAUXBRIGID Lantigua PATIENT MEDICARE (WNR) MEDICARE (M) PART A December 08, 2013 PART A [id number] 62A BRIGID RAMOS PATIENT Selected Encounter This section includes the information on record at [place] for the Encounter. Date/Time Encounter Type Encounter Description Reason Pro vider Source Jul 20, 2024 12:20 PM Outpatient Encounter PRIMARY CARE/MEDICINE IHE Encounter Template Text not used by [place] Plan of Treatment: Future Appointments (+ 6 [...] PM AMBULATORY - REHAB MEDICIN E [facility] Aug 30, 2024 11:00 AM AMBULATORY - MEDICINE [facility] Sep 14, 2024 01:00 PM AMBULATORY - REHAB MEDICIN E [facility] Active, Pending, and Scheduled Orders This section includes a listing of several types of active, pending, and scheduled orders, including clinic medications orders, diagnostic test orders, procedure orders and consult orders; where the start date of the order is 45 days before the date of the Encounter or 45 days after the date of theEncounter. The data comes from all [facility]. Test Date/Time Test Type Test Details Facility Name Jul 05, 2024 09:45 AM Consult Order COMMUNITY CARE-ACUPUNCTURE Cons Topographical Field Assistant's Choice [facility] Aug 31, 2024 12:00 AM Laboratory - Chemi stry Order LIPID PANEL FASTING BLOOD (SST-SERUM) [facility] Aug 31, 2024 12:00 AM Laboratory - Chemi stry Order LIVER FUNCTION BLOOD (SST-SERUM) [facility] Aug 31, 2024 12:00 AM Laboratory - Chemi stry Order BASIC METABOLIC PANEL (fasting) BLOOD (SST-SERUM) [facility] Social History: Smoking Status (Most current) [...] Facil ity May 12, 2023 10:46 AM [place]-TOBACCO NEVER USED [facility] Tobacco Use History This section includes a history of the smoking, or tobacco-related health factors, that were collected on or before the date of the Encounter. The data comes from the [place] facility where the Encounter took place. Date/Time Smoking Status/Tobacco Use Comment F acility Oct 20, 2015 10:30 AM LIFETIME NON-TOBACCO USER [facility] Sep 19, 2009 11:13 AM LIFETIME NON-TOBACCO USER [facility] Advance Directives: All historical and current [...] Mar 22, 2018 ADVANCE DIRECTIVE JASWANT DICKINSON [facility] Radiology Reports: +/- 30 days of the [...] PM FLUOROSCOPIC [place] NCE OF NEEDLE/SPINE: ODILIACOLBY [id number] -1970 M Exm Date: JUL 27, 2024@14:52 Req Phys: FALCONYAIR [facility] Loc: CWM/NO/MED REHAB/SPINE INJ (Re Img Loc: [facility] 1 Service: [place] [address] (Case 169 COMPLETE) FLUOROSCOPIC GUIDANCE OF NEEDLE/S(RAD Detailed) CPT:30643 Reason for Study: transforaminal epidural steroid injection Clinical History: Report Status: Verified Date Reported: JUL 27, 2024 Date Verified: JUL 27, 2024 Wallpaper Hanger E-Sig:/ES/GREG OLIVIER JR Report: Study: Pain injection [...] Primary Interpreting Staff: GREG OLIVIER JR, Radiologist (Wallpaper Hanger) /GREG GAITAN JR [facility] Encounter Notes: All associated encounter notes This section contains the clinical notes associated to the Encounter. Date/Time Encounter Note(s) Provider Source Jul 20, 2024 12:20 PM LETTERS: LOCAL TITLE: PATIENT LETTER (T) STANDARD TITLE: LETTERS DATE OF NOTE: JUL 20, 2024@12:20 ENTRY DATE: JUL 20, 2024@12:21:06 AUTHOR: TAMEKA DOSS EXP COSIGNER: URGENCY: STATUS: COMPLETED DEPARTMENT OF [facility] Toll Free Number Primary Care Telephone Assistance can be reached at extension [phone] [facility] scheduling can be reached at extension [phone] [facility] scheduling can be reached at ext [phone] COLBY RAM[address]ZCHELA [address], [address] To whom it may concern, Mr. Becerril is under my care and is medically clear to receive general anesthesia in order for his colonoscopy to be performed. If you have any questions please feel free to contact me directly. Sincerely, Tracy Ovalles MD [facility] PACT 10 Sincerely, Your Primary Care Team [facility] [address] [address] [place] [address] [phone] [facility] [address] [place] [address] [place] [address] [phone] [facility] [address] [facility],[address] [place] [address] [place] [address] TAMEKA DOSS [place]
--- OUTSIDE RECORDS SUMMARY | 2024-08-18 09:57 | XMS_ITS ---
Author Name [facility] [place] Organization [place] Address [address] [place] [address] Care Team Providers Care Geosciences Professor Name Role Phone EHSAN OVALLES Primary Care [...] PART A December 08, 2013 PART A [id number] 62A BRIGID RAMOS PATIENT MEDICARE (WNR) MEDICARE (M) PART A December 08, 2013 PART A [id number] 62A BRIGID RAMOS PATIENT Selected Encounter This section includes the information on record at [place] for the Encounter. Date/Time Encounter Type Encounter Description Reason Pro vider Source Nov 25, 2023 07:13 AM Outpatient Encounter PRIMARY CARE/MEDICINE IHE Encounter Template Text not used by [place] Plan of Treatment: Future Appointments (+ 6 [...] 20 appointments. The data comes from all [place] treatment facilities. Appointment Date/Time Appointment Type Appointme nt Facility Name Nov 26, 2023 10:30 AM AMBULATORY [facility] [place] Dec 01, 2023 09:45 AM [facility] [place] [facility] Dec 01, 2023 03:30 PM AMBULATORY [place] [facility]IN [facility] [place] Dec 08, 2023 09:00 AM AMBULATORY - [facility] MEDICIN [facility] [place] January 05, 2024 01:00 PM AMBULATORY - [facility]HAB MEDICIN [facility] [place] [facility] Jan 15, 2024 09:30 AM AMBULATORY - RE[facility]AB MEDICIN [facility] [place] Feb 23, 2024 09:00 AM AMBULATORY - MEDICINE [facility] [place] [facility] Feb 25, 2024 01:00 PM AMBULATORY - REHAB MEDICIN E [facility] [place] [facility] Mar 21, 2024 10:00 AM AMBULATORY - MEDICINE [place] [facility] [place] [facility] Mar 24, 2024 01:00 PM AMBULATORY - MEDICINE [place] [facility] [place] [facility] Apr 06, 2024 10:00 AM AMBULATORY - MEDICINE [place] [facility] [place] [facility] May 24, 2024 12:00 PM AMBULATORY - NONE [place] [facility] [place] [facility] Lab Results: +/- 30 days of the encounter This section includes the Chemistry and Hematology Lab Results on record with [place] for the patient. Radiology Reports and Pathology Reports are provided separately, in subsequent sections. Lab Results This section contains the Chemistry/Hematology Results that were resulted 30 days before or 30 daysafter the date of the Encounter. Date/Time Source Result Type Result - Unit Interpretation Reference Range Comment Nov 09, 2023 08:51 AM [place] [facility] [place] [facility] LIPID PANEL FASTING Specimen Type: SERUM No comment entered. Ordering Provider: EHSAN OVALLES Report Released Date/Time: May 12, 2023 10:46 AM Reporting [facility] [address] Performing Lab: [facility] [address] [address] CHOLESTEROL 286 mg/dL H TRIGLYCERIDE 111 mg/dL 0-150 LDL calculated 226 mg/dL H 0-129 CHOL/HDL 7.5 HDL CHOLESTEROL 38 mg/dL L 40-60 Nov 09, 2023 08:51 AM [facility] BASIC METABOLIC PANEL (fasting) Specimen Type: SERUM No comment entered. Ordering Provider: EHSAN OVALLES Report Released Date/Time: May 12, 2023 10:46 AM Reporting Lab: [facility] [address] [facility] [address] Performing Lab: [address] [address] [place]A NITROGEN 25 mg/dL 7-25 GLUCOSE 97 mg/dL 65-100 SODIUM 141 mmol/L 135-145 POTASSIUM 4.5 mmol/L 3.5-5.0 CHLORIDE 104 mmol/L 100-110 CO2 28 meq/L 20-30 CREATININE, Serum 1.12 mg/dL 0.50-1.40 eGFR(CKD-EPI 2020) 79 mL/min >60 Nov 09, 2023 08:51 AM [facility] LIVER FUNCTION Specimen Type: SERUM No comment entered. Ordering Provider: EHSAN OVALLES Report Released Date/Time: May 12, 2023 10:46 AM Reporting Lab: [address] [address] Performing Lab: [address] [address] PROTEIN,TOTAL 7.2 g/dL 6.0-8.3 ALBUMIN 4.0 g/dL 3.5-5.0 ALKALINE PHOSPHATASE 68 U/L 40-150 AST 21 U/L 5-34 ALT 40 U/L BILIRUBIN, TOTAL 0.6 mg/dL 0.2-1.2 Social History: Smoking Status (Most current) and Tobacco Use (All prior to encounter date) This section includes the most current, and the historical, smoking and tobacco- related health factors from the [place] facility where the Encounter took place. Current Smoking Status This section includes the most current smoking, or tobacco-related health factor, from the [place] facility where the Encounter took place. Date/Time Current Smoking Status Comment Jose armstrong May 12, 2023 10:46 AM VA-TOBACCO NEVER USED [facility] Tobacco Use History This section includes a history of the smoking, or tobacco-related health factors, that were collected on or before the date of the Encounter. The data comes from the [place] facility where the Encounter took place. Date/Time Smoking Status/Tobacco Use Comment Trisha renae Oct 20, 2015 10:30 AM LIFETIME NON-TOBACCO USER [facility] Sep 19, 2009 11:13 AM LIFETIME NON-TOBACCO USER [facility] Advance Directives: All historical and current Section Date Range: From patient's date of to the date document was created. This section includes ALL of a patient's completed or amended [place] Advance and Rescinded Directives. The entries below indicate that a directive exists for the patient, but an actual copy is not included with this document. The data comes from all [place] facilities. Date Advance Directives Provider Source Mar 22, 2018 ADVANCE DIRECTIVE TEENAJASWANT CARDENAS [facility] Encounter Notes: All associated encounter notes This section contains the clinical notes associated to the Encounter. Date/Time Encounter Note(s) Provider Source Nov 25, 2023 07:13 AM PRIMARY CARE Rewardli E MESSAGING: LOCAL TITLE: PRIMARY CARE SECURE MESSAGING STANDARD TITLE: PRIMARY CARE SECURE MESSAGING DATE OF NOTE: NOV 25, 2023@07:13 ENTRY DATE: NOV 25, 2023@08:13:07 AUTHOR: LATASHA BARON EXP COSIGNER: URGENCY: STATUS: COMPLETED ------Original Message ----- Sent: 11/24/2023 04:32 PM ET From: DONELL HARTLEY To: Adarsh OVALLES_PRIMARY CARE_[facility] Subject: General:Leg issue Hello, I just to wanted let you know that I'm still having issues with my left leg with mobility and strength. It's been suggested that there's something up with the calf. We've addressed the thigh and the back but never addressed the calf. Can we please address this? Donell Becerril /dheeraj/ LATASHA BARON [employer] ATTENDANT Signed: 11/25/2023 08:13 Receipt Acknowledged By: 11/25/2023 08:21 /es/ ADEN VALLECILLO LPN PACT 10 for TAMEKA DOSS 11/25/2023 08:19 /es/ ADEN VALLECILLO LPN PACT 10 [facility]
--- OUTSIDE RECORDS SUMMARY | 2024-08-18 09:57 | XMS_ITS | Encounter Summary ---
Author Name [facility] [place] Address [address] [place] [address] Care Team Providers Care Director Of Critical Care Name Role Phone EHSAN OVALLES Primary Care [...] PART A December 08, 2013 PART A [id number] [phone] BRIGID RAMOS PATIENT MEDICARE (WNR) MEDICARE (M) PART A December 08, 2013 PART A [id number] [phone] BRIGID RAMOS PATIENT Selected Encounter This section includes the information on record at [place] for the Encounter. Date/Time Encounter Type Encounter Description Reason Provider Source Nov 24, 2023 09:30 AM OFFICE O/P EST MOD 30 MIN PAIN CLINIC ICD-10-CM M54.50 Low back pain, unspecified BENJA TIPTON Martin Encounter Template Text not used by [place] Assessments - Encounter Diagnoses This section includes the primary and secondary diagnoses documented for the Encounter. Date/Time Primary/Secondary Diagnosis Diagnosis Name Provider Source Nov 24, 2023 04:10 PM PRIMARY Low back pain, unspecified BENJA TIPTON [facility] [place] [facility] Nov 24, 2023 04:10 PM SECONDARY Pain in left knee BENJA TIPTON [facility] [place] [facility] Nov 24, 2023 04:10 PM SECONDARY Post-traumatic stress disorder, chronic BENJA TIPTON [place] [facility] [place] [facility] Plan of Treatment: Future Appointments (+ 6 months) and Future Tests (+/- 45 days) The Plan of Treatment section includes future care activities for the patient [facility] [place] [facility] This section includes future appointments and future orders which are active, pending or scheduled. Future Appointments This section includes appointments that were scheduled to occur 6 months from the date of the Encounter, up to a maximum of 20 appointments. The data comes from all [place] treatment facilities. Appointment Date/Time Appointment Type Appointme nt Facility Name Nov 26, 2023 10:30 AM AM[facility]ULATORY - [facility] [place] Dec 01, 2023 09:45 AM AMBULATORY - MEDICINE [place] [facility] [place] [facility] Dec 01, 2023 03:30 PM [facility]UL[facility]ORY [facility] Dec 08, 2023 09:00 AM AMBULATORY - RE[facility] [place] January 05, 2024 01:00 PM AMBULATORY - REHAB MEDICIN E [place] [facility] [place] [facility] Jan 15, 2024 09:30 AM AMBULATORY - REHAB [facility] [place] Feb 23, 2024 09:00 AM AMBULATORY - MEDICINE [place] [facility] [place] [facility] Feb 25, 2024 01:00 PM AMBULATORY - REHAB MEDICIN E [place] [facility] [place] [facility] Mar 21, 2024 10:00 AM AMBULATORY - MEDICINE [place] [facility] [place] [facility] Mar 24, 2024 01:00 PM AMBULATORY - MEDICINE [place] [facility] [place] [facility] Apr 06, 2024 10:00 AM AMBULATORY - MEDICINE [place] [facility] [place] [facility] May 24, 2024 12:00 PM AMBULATORY - NONE [place] [facility] [place] [facility] Lab Results: +/- 30 days of the encounter This section includes the Chemistry and Hematology Lab Results on record with [place] for the patient. Radiology Reports and Pathology Reports are provided separately, in subsequent sections. Lab Results This section contains the Chemistry/Hematology Results that were resulted 30 days before or 30 daysafter the date of the Encounter. Date/Time Source Result Type Result - Unit Interpretation Reference Range Comment Nov 09, 2023 08:51 AM [facility] LIPID PANEL FASTING Specimen Type: SERUM No comment entered. Ordering Provider: EHSAN OVALLES Report Released Date/Time: May 12, 2023 10:46 AM Reporting Lab: [address] [address] Performing Lab: [address] [address] CHOLESTEROL 286 mg/dL H TRIGLYCERIDE 111 mg/dL 0-150 LDL calculated 226 mg/dL H 0-129 CHOL/HDL 7.5 HDL CHOLESTEROL 38 mg/dL L 40-60 Nov 09, 2023 08:51 AM [facility] LIVER FUNCTION Specimen Type: SERUM No comment entered. Ordering Provider: EHSAN OVALLES Report Released Date/Time: May 12, 2023 10:46 AM Reporting Lab: [address] [address] Performing Lab: [address] [address] PROTEIN,TOTAL 7.2 g/dL 6.0-8.3 ALBUMIN 4.0 g/dL 3.5-5.0 ALKALINE PHOSPHATASE 68 U/L 40-150 AST 21 U/L 5-34 ALT 40 U/L BILIRUBIN, TOTAL 0.6 mg/dL 0.2-1.2 Nov 09, 2023 08:51 AM [facility] BASIC METABOLIC PANEL (fasting) Specimen Type: SERUM No comment entered. Ordering Provider: EHSAN OVALLES Report Released Date/Time: May 12, 2023 10:46 AM Reporting Lab: [address] [address] Performing Lab: [address] [address] UREA NITROGEN 25 mg/dL 7-25 GLUCOSE 97 [...] and tobacco- related health factors from the [place] facility where the Encounter took place. Current Smoking Status This section includes the most current smoking, or tobacco-related health factor, from the [place] facility where the Encounter took place. Date/Time Current Smoking Status Comment Facil ity May 12, 2023 10:46 AM [place]-TOBACCO NEVER USED [facility] Tobacco Use History This section includes a history of the smoking, or tobacco-related health factors, that were collected on or before the date of the Encounter. The data comes from the [place] facility where the Encounter took place. Date/Time Smoking Status/Tobacco Use Comment F acility Oct 20, 2015 10:30 AM LIFETIME NON-TOBACCO USER [facility] Sep 19, 2009 11:13 AM LIFETIME NON-TOBACCO USER [facility] Advance Directives: All historical and current Section Date Range: From patient's date of to the date document was created. This section includes ALL of a patient's completed or amended [place] Advance and Rescinded Directives. The entries below indicate that a directive exists for the patient, but an actual copy is not included with this document. The data comes from all [place] facilities. Date Advance Directives Provider Source Mar 22, 2018 ADVANCE DIRECTIVE JASWANT DICKINSON [facility] Encounter Notes: All associated encounter notes This section contains the clinical notes associated to the Encounter. Date/Time Encounter Note(s) Provider Source Nov 24, 2023 09:28 AM PAIN MEDICINE OUTPATIENT NOTE: LOCAL TITLE: PAIN CLINIC NOTE STANDARD TITLE: PAIN MEDICINE OUTPATIENT NOTE DATE OF NOTE: NOV 24, 2023@09:28 ENTRY DATE: NOV 24, 2023@09:28:44 AUTHOR: BENJA TIPTON COSIGNER: URGENCY: STATUS: COMPLETED PAIN CLINIC NOTE Has ADDENDA Presents for follow up by [facility]. Nerve pain is gone after injection. Left L3-4 and right S1 transforaminal epidural steroid injection on 09/30, about 7 weeks ago. Has some residual back pain. Will be starting PT later this week. Current pain in lower back (mild, much better than a few months ago), left leg from knee down to heel Has not seen chiropractor lately. Has resumed some walking, every morning for 30 minutes. Also active with chores in house and the yard. He has been doing some daily stretching and some minesh chi at home. Sleeping well now. When he overdoes it now, he recovers in a few hours. Active Outpatient Medications (including Supplies): Active Outpatient Medications Status 1) ACETAMINOPHEN 500MG TAB TAKE TWO TABLETS BY MOUTH ACTIVE THREE TIMES DAILY NEEDED FOR PAIN -- has only needed about 3 pills in the past week. 2) ALBUTEROL 90MCG (CFC-F) 200D ORAL INHL INHALE 2 PUFFS ACTIVE BY MOUTH FOUR TIMES DAILY NEEDED FOR SHORTNESS OF BREATH -- has rarely needed since starting acupuncture. 3) BUPRENORPHINE 300MCG BUCCAL FILM PLACE ONE FILM ACTIVE BETWEEN CHEEK AND GUM UNTIL DISSOLVED EVERY 12 HOURS FOR PAIN -- had cut back on using this, was using as needed, has not needed in past 3 weeks. 4) CHOLECALCIF 50MCG (D3-2,000UNIT) TAB TAKE TWO TABLETS ACTIVE BY MOUTH EVERY DAY FOR VITAMIN SUPPLEMENTATION -- taking 5) CLOMIPHENE CITRATE 50MG TAB TAKE ONE-HALF TABLET BY ACTIVE MOUTH ONCE DAILY -- from urologist to help boost testosterone 6) DICLOFENAC NA 1% TOP GEL APPLY 4 GRAMS TOPICALLY FOUR ACTIVE TIMES A DAY FOR OSTEOARTHRITIS - USE DOSING CARD PROVIDED IN BOX -- still using on left calf. 7) FLUTICAS 500/SALMETEROL 50 INHL DISK 60 INHALE 1 PUFF ACTIVE BY MOUTH TWICE DAILY - RINSE MOUTH AFTER USE -- not needing 8) LIDOCAINE 5% OINT APPLY THIN LAYER TOPICALLY TWICE ACTIVE DAILY TO THREE TIMES A DAY NEEDED FOR MINOR SKIN WOUND PAIN -- has not needed lately, but still has it. 9) LOSARTAN 100MG TAB TAKE ONE TABLET BY MOUTH ONCE ACTIVE DAILY FOR BLOOD PRESSURE/HEART -- takes daily. 10) MONTELUKAST NA 10MG TAB TAKE ONE TABLET BY MOUTH AT ACTIVE BEDTIME FOR CONTROLLER MEDICATION FOR ASTHMA -- takes daily 11) NAPROXEN 500MG TAB TAKE ONE TABLET BY MOUTH TWICE ACTIVE DAILY TAKE WITH FOOD -- taking twice daily. 12) OMEPRAZOLE 20MG EC CAP TAKE ONE CAPSULE BY MOUTH ACTIVE TWICE DAILY -- takes twice daily. 13) PRAZOSIN HCL 1MG CAP TAKE THREE CAPSULES BY MOUTH AT ACTIVE BEDTIME TAKE DOSE AT 11 PM. 14) PREGABALIN 75MG ORAL CAP TAKE ONE CAPSULE BY MOUTH ACTIVE TWICE DAILY FOR PAIN -- continues taking this; 100 mg worked better 15) TESTOSTERONE CYP 200MG/ML 1ML IN OIL INJECT 0.5ML ACTIVE (100MG) INTRAMUSCULARLY ONCE A WEEK VIALS ARE ONLY TO BE USED ONE TIME : Oxycodone, last filled 09/10/23, 5 mg #30 Also taking allopurinol 500 mg per day. Has lost almost 60#, now at 307#. Appears comfortable and in good spirits by [facility]. 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 Lumbar CT scan in Mar 2023 ([facility]) showed neuroforaminal stensoses L3-S1. It seemed likely he had a combination of lumbar radiculopathy, piriformis tightness, and perhaps some lateral knee tendon strain. He was getting short term benefit from chiropractic and acupuncture treatments, and eventually agreed to proceed with physiatry and PT referrals. He has now seen physiatry and received a left L3-4 and right S1 transforaminal epidural steroid injections in Sep 2023; he got great pain relief from the injections. He is scheduled to start PT this week. He would like to continue with community care chiropractic therapy which was previously giving short term benefit. He generally prefers to avoid using medication. When his pain was severe he was getting benefit from low dose opioid therapy with Belbuca and occasional oxycodone, as well as naproxen and pregabalin. In recent weeks he has not needed any of the opioid medication. PLAN: 1. Will increase pregabalin back to 100 mg bid per his request, mail. 2. He will proceed with PT. 3. Will discuss his desire for continued home care provider with Dr. Davis. 4. Will discontinue buprenorphine and oxycodone for now as they are no longer needed. 5. f/u 4 months. /dheeraj/ Benja Tipton MD STAFF PHYSICIAN Signed: 11/24/2023 16:10 11/24/2023 ADDENDUM STATUS: UNSIGNED You may not VIEW this UNSIGNED Addendum. BENJA TIPTON [place] [facility]
--- OUTSIDE RECORDS SUMMARY | 2024-08-18 09:57 | XMS_ITS ---
Author Name [facility] [place] Organization [place] Address [address] [place] [address] Care Team Providers Care Fairground Operator Name Role Phone EHSAN OVALLES Primary [...] PART A December 08, 2013 PART A [id number] BRIGID RAMOS PATIENT MEDICARE (WNR) MEDICARE (M) PART A December 08, 2013 PART A [id number] [phone] BRIGID RAMOS PATIENT Selected Encounter This section includes the information on record at [place] for the Encounter. Date/Time Encounter Type Encounter Description Reason Provider Source Nov 25, 2023 07:25 AM Outpatient Encounter PRIMARY CARE/MEDICINE AUDRA VALLECILLO Encounter Template Text not used by [place] [...] 20 appointments. The data comes from all [place] treatment facilities. Appointment Date/Time Appointment Type Appointme nt Facility Name Nov 26, 2023 10:30 AM AMBULATORY - [place] [place] Dec 01, 2023 09:45 AM AM[place]ULATORY [place] MEDICINE [place] [facility] [facility] Dec 01, 2023 03:30 PM AMBULATORY - REHAB MEDICIN [place] Dec 08, 2023 09:00 AM [facility]ORY - [place] MEDICIN [place] January 05, 2024 01:00 PM AMBULATORY - REHAB MEDICIN E [place] [facility] [place] [facility] Jan 15, 2024 09:30 AM AMBULATORY - REHAB MEDICIN E [place] Feb 23, 2024 09:00 AM AMBULATORY - MEDICINE [place] [facility] [place] [facility] Feb 25, 2024 01:00 PM AMBULATORY - REHAB MEDICIN E [place] [facility] [place] [facility] Mar 21, 2024 10:00 AM AMBULATORY - MEDICINE [place] [facility] [place] [facility] Mar 24, 2024 01:00 PM AMBULATORY - MEDICINE [place] [facility] [place] [facility] Apr 06, 2024 10:00 AM AMBULATORY - MEDICINE [place] [facility] [place] [facility] May 24, 2024 12:00 PM AMBULATORY - NONE [place] [facility] [place] [facility] Lab Results: +/- 30 days of the encounter This section includes the Chemistry and Hematology Lab Results on record with [place] for the patient. Radiology Reports and Pathology Reports are provided separately, in subsequent sections. Lab Results This section contains the Chemistry/Hematology Results that were resulted 30 days before or 30 daysafter the date of the Encounter. Date/Time Source Result Type Result - Unit Interpretation Reference Range Comment Nov 09, 2023 08:51 AM [place] [facility] [place] [facility] LIVER FUNCTION Specimen Type: SERUM No comment entered. Ordering Provider: EHSAN OVALLES Report Released Date/Time: May 12, 2023 10:46 AM Reporting Lab: [place] [facility] [place] [facility] [address] [facility] [address] Performing Lab: [facility] [address] [address] PROTEIN,TOTAL 7.2 g/dL 6.0-8.3 ALBUMIN 4.0 g/dL 3.5-5.0 ALKALINE PHOSPHATASE 68 U/L 40-150 AST 21 U/L 5-34 ALT 40 U/L BILIRUBIN, TOTAL 0.6 mg/dL 0.2-1.2 Nov 09, 2023 08:51 AM [facility] LIPID PANEL FASTING Specimen Type: SERUM No comment entered. Ordering Provider: EHSAN OVALLES Report Released Date/Time: May 12, 2023 10:46 AM Reporting Lab: [facility] [address] [facility] [address] Performing Lab: [address] [address] CHOLESTEROL 286 mg/dL H TRIGLYCERIDE 111 mg/dL 0-150 LDL calculated 226 mg/dL H 0-129 CHOL/HDL 7.5 HDL CHOLESTEROL 38 mg/dL L 40-60 Nov 09, 2023 08:51 AM [facility] BASIC METABOLIC PANEL (fasting) Specimen Type: SERUM No comment entered. Ordering Provider: EHSAN OVALLES Report Released Date/Time: May 12, 2023 10:46 AM Reporting Lab: [facility] [address] [address] Performing Lab: [address] [address] UREA NITROGEN 25 mg/dL 7-25 GLUCOSE 97 [...] Jose armstrong May 12, 2023 10:46 AM [place]-TOBACCO NEVER USED [facility] Tobacco Use History This section includes a history of the smoking, or tobacco-related health factors, that were collected on or before the date of the Encounter. The data comes from the [place] facility where the Encounter took place. Date/Time Smoking Status/Tobacco Use Comment Trisha renae Oct 20, 2015 10:30 AM LIFETIME NON-TOBACCO USER [facility] Sep 19, 2009 11:13 AM LIFETIME NON-TOBACCO USER [facility] Advance Directives: All historical and current Section [...] Mar 22, 2018 ADVANCE DIRECTIVE JASWANT DICKINSON [facility] Encounter Notes: All associated encounter notes This section contains the clinical notes associated to the Encounter. Date/Time Encounter Note(s) Provider Source Nov 25, 2023 07:25 AM PRIMARY CARE [facility] E MESSAGING: LOCAL TITLE: PRIMARY CARE SECURE MESSAGING STANDARD TITLE: PRIMARY CARE SECURE MESSAGING DATE OF NOTE: NOV 25, 2023@07:25 ENTRY DATE: NOV 25, 2023@08:25:15 AUTHOR: AUDRA VALLECILLO EXP COSIGNER: URGENCY: STATUS: COMPLETED ------Original Message --------- Sent: 11/25/2023 08:24 AM ET From: AUDRA VALLECILLO To: COLBY HARTLEY Subject: General:General Inquiry I will make sure Dr. Ovalles sees the message. PT should be able to give you some exercises for your leg as well. Audra Vallecillo LPN /dheeraj/ AUDRA VALLECILLO LPN PACT 10 Signed: 11/25/2023 08:25 AUDRA VALLECILLO [facility]
--- OUTSIDE RECORDS SUMMARY | 2024-08-18 09:57 | XMS_ITS ---
Author Name [place] Address [address] [place] [address] Care Team Providers Care I&C Technician Name Role Phone EHSAN OVALLES Primary Care [...] PART A December 08, 2013 PART A [id number] [place]Martin BRIGID DAMICO PATIENT MEDICARE (WNR) MEDICARE (M) PART A December 08, 2013 PART A [id number] [id number] BRIGID RAMOS PATIENT Selected Encounter This section includes the information on record at [place] for the Encounter. Date/Time Encounter Type Encounter Description Reason Pro vider Source Nov 23, 2023 10:45 AM Outpatient Encounter PAIN CLINIC IHE Encounter Template Text not used by [place] Plan of Treatment: Future Appointments (+ 6 [...] 20 appointments. The data comes from all [place] treatment facilities. Appointment Date/Time Appointment Type Appointme nt Facility Name Nov 24, 2023 09:30 AM AMBULATORY - MEDICINE [place] [facility] [facility] Nov 26, 2023 10:30 AM AMBULATORY - RE[place]AB MEDICIN E [place] Dec 01, 2023 09:45 AM AMBULATORY - MEDICINE [place] [facility] [facility] Dec 01, 2023 03:30 PM AMBULATORY - REHAB MEDICIN E [place] Dec 08, 2023 09:00 AM AMBULATORY - REHAB MEDICIN E [place] January 05, 2024 01:00 PM AMBULATORY - REHAB MEDICIN E [facility] [place] [facility] Jan 15, 2024 09:30 AM AMBULATORY - REHAB MEDICIN E [place] Feb 23, 2024 09:00 AM AMBULATORY - MEDICINE [facility] [place] [facility] Feb 25, 2024 01:00 PM AMBULATORY - REHAB MEDICIN E [facility] [place] [facility] Mar 21, 2024 10:00 AM AMBULATORY - MEDICINE [facility] [facility] Mar 24, 2024 01:00 PM AMBULATORY - MEDICINE [facility] [place] [facility] Apr 06, 2024 10:00 AM AMBULATORY - MEDICINE [facility] [facility] May 24, 2024 12:00 PM AMBULATORY - NONE [place] [facility] [place] [facility] Lab Results: +/- 30 days of the encounter This section includes the Chemistry and Hematology Lab Results on record with [place] for the patient. Radiology Reports and Pathology Reports are provided separately, in subsequent sections. Lab Results This section contains the Chemistry/Hematology Results that were resulted 30 days before or 30 daysafter the date of the Encounter. Date/Time Source Result Type Result - Unit Interpretation Reference Range Comment Nov 09, 2023 08:51 AM [place] [facility] [place] [facility] LIPID PANEL FASTING Specimen Type: SERUM No comment entered. Ordering Provider: EHSAN OVALLES Report Released Date/Time: May 12, 2023 10:46 AM Reporting Lab: [place] [facility] [address] [address] Performing Lab: [facility] [address] CHOLESTEROL 286 mg/dL H TRIGLYCERIDE 111 mg/dL 0-150 LDL calculated 226 mg/dL H 0-129 CHOL/HDL 7.5 HDL CHOLESTEROL 38 mg/dL L 40-60 Nov 09, 2023 08:51 AM [facility] LIVER FUNCTION Specimen Type: SERUM No comment entered. Ordering Provider: EHSAN OVALLES Report Released Date/Time: May 12, 2023 10:46 AM Reporting Lab: [address] [address] Performing Lab: [address] [address] PROTEIN,TOTAL 7.2 g/dL 6.0-8.3 ALBUMIN 4.0 g/dL 3.5-5.0 ALKALINE PHOSPHATASE 68 U/L 40-150 AST 21 U/L 5-34 ALT 40 U/L BILIRUBIN, TOTAL 0.6 mg/dL 0.2-1.2 Nov 09, 2023 08:51 AM [facility] BASIC METABOLIC PANEL (fasting) Specimen Type: SERUM No comment entered. Ordering Provider: EHSAN OVALLES Report Released Date/Time: May 12, 2023 10:46 AM Reporting Lab: [address] [address] Performing Lab: [address] [address] UREA NITROGEN 25 mg/dL 7-25 GLUCOSE 97 [...] and tobacco- related health factors from the [place] facility where the Encounter took place. Current Smoking Status This section includes the most current smoking, or tobacco-related health factor, from the [place] facility where the Encounter took place. Date/Time Current Smoking Status Comment Jose armstrong May 12, 2023 10:46 AM [place]-TOBACCO NEVER USED [facility] Tobacco Use History This section includes a history of the smoking, or tobacco-related health factors, that were collected on or before the date of the Encounter. The data comes from the [place] facility where the Encounter took place. Date/Time Smoking Status/Tobacco Use Comment F acility Oct 20, 2015 10:30 AM LIFETIME NON-TOBACCO USER [facility] Sep 19, 2009 11:13 AM LIFETIME NON-TOBACCO USER [facility] Advance Directives: All historical and current Section Date Range: From patient's date of to the date document was created. This section includes ALL of a patient's completed or amended [place] Advance and Rescinded Directives. The entries below indicate that a directive exists for the patient, but an actual copy is not included with this document. The data comes from all [place] facilities. Date Advance Directives Provider Source Mar 22, 2018 ADVANCE DIRECTIVE JASWANT DICKINSON [facility] Encounter Notes: All associated encounter notes This section contains the clinical notes associated to the Encounter. Date/Time Encounter Note(s) Provider Source Nov 23, 2023 10:45 AM TELEPHONE ENCOUNTE R NOTE: LOCAL TITLE: TELEPHONE NOTE/SPECIALTY CLINIC STANDARD TITLE: TELEPHONE ENCOUNTER NOTE DATE OF NOTE: NOV 23, 2023@10:45 ENTRY DATE: NOV 23, 2023@10:45:17 AUTHOR: STALIN VIGIL EXP COSIGNER: URGENCY: STATUS: COMPLETED Called and spoke with pt to remind them that they have a [facility] appt with the Pain clinic on 11/24/2023 at 930am. /dheeraj/ STALIN VIGIL ADVANCED FRONT DESK MONITOR Signed: 11/23/2023 10:46 STALIN VIGIL [facility]
--- OUTSIDE RECORDS SUMMARY | 2024-08-18 09:58 | XMS_ITS ---
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 Date/Time Encounter Type Encounter Description Reason Pro vider Source Nov 25, 2023 09:20 AM Outpatient Encounter PAIN CLINIC [facility] Encounter Template Text not used by CT Plan of Treatment: Future Appointments (+ 6 [...] 20 appointments. The data comes from all CT treatment facilities. Appointment Date/Time Appointment Type Appointme nt Facility Name Nov 26, 2023 10:30 AM [facility] [place] Dec 01, 2023 09:45 AM AMBULATORY - MEDICINE [facility] [place] [facility] Dec 01, 2023 03:30 PM [facility] [place] Dec 08, 2023 09:00 AM [facility] [place] [facility] [place] January 05, 2024 01:00 PM [facility] [place] [facility] Jan 15, 2024 09:30 AM [facility] [place] Feb 23, 2024 09:00 AM [facility]ULATORY [facility]ICINE [facility] [place] [facility] Feb 25, 2024 01:00 PM AMBULATORY - [facility]IN [facility] [place] [facility] Mar 21, 2024 10:00 AM AMBULATORY - MEDICINE [facility] [place] [facility] Mar 24, 2024 01:00 PM AMBULATORY - MEDICINE [facility] [place] [facility] Apr 06, 2024 10:00 AM AMBULATORY - MEDICINE [facility] [place] [facility] May 24, 2024 12:00 PM AMBULATORY - NONE [facility] Lab Results: +/- 30 days of the encounter This section includes the Chemistry and Hematology Lab Results on record with CT for the patient. Radiology Reports and Pathology Reports are provided separately, in subsequent sections. Lab Results This section contains the Chemistry/Hematology Results that were resulted 30 days before or 30 daysafter the date of the Encounter. Date/Time Source Result Type Result - Unit Interpretation Reference Range Comment Nov 09, 2023 08:[address] [facility] LIPID PANEL FASTING Specimen Type: SERUM No comment entered. Ordering Provider: EHSAN OVALLES Report Released Date/Time: May 12, 2023 10:46 AM Reporting Lab: [facility] [address] [address] Performing Lab: [facility] [address] [address] CHOLESTEROL 286 mg/dL H TRIGLYCERIDE 111 mg/dL 0-150 LDL calculated 226 mg/dL H 0-129 CHOL/HDL 7.5 HDL CHOLESTEROL 38 mg/dL L 40-60 Nov 09, 2023 08:51 AM [facility] LIVER FUNCTION Specimen Type: SERUM No comment entered. Ordering Provider: EHSAN OVALLES Report Released Date/Time: May 12, 2023 10:46 AM Reporting Lab: [facility] [address] [address] Performing Lab: [address] [address] PROTEIN,TOTAL 7.2 g/dL 6.0-8.3 ALBUMIN 4.0 g/dL 3.5-5.0 ALKALINE PHOSPHATASE 68 U/L 40-150 AST 21 U/L 5-34 ALT 40 U/L BILIRUBIN, TOTAL 0.6 mg/dL 0.2-1.2 Nov 09, 2023 08:51 AM [facility] BASIC METABOLIC PANEL (fasting) Specimen Type: SERUM No comment entered. Ordering Provider: EHSAN OVALLES Report Released Date/Time: May 12, 2023 10:46 AM Reporting Lab: [address] [address] Performing Lab: [address] [address] UREA NITROGEN 25 mg/dL 7-25 GLUCOSE 97 [...] and tobacco- related health factors from the CT facility where the Encounter took place. Current Smoking Status This section includes the most current smoking, or tobacco-related health factor, from the CT facility where the Encounter took place. Date/Time Current Smoking Status Comment Jose armstrong May 12, 2023 10:[address]-TOBACCO NEVER USED [facility] Tobacco Use History This section includes a history of the smoking, or tobacco-related health factors, that were collected on or before the date of the Encounter. The data comes from the CT facility where the Encounter took place. Date/Time Smoking Status/Tobacco Use Comment Trisha renae Oct 20, 2015 10:30 AM LIFETIME NON-TOBACCO USER [facility] Sep 19, 2009 11:13 AM LIFETIME NON-TOBACCO USER [facility] Advance Directives: All historical and current Section Date Range: From patient's date of to the date document was created. This section includes ALL of a patient's completed or amended CT Advance and Rescinded Directives. The entries below indicate that a directive exists for the patient, but an actual copy is not included with this document. The data comes from all CT facilities. Date Advance Directives Provider Source Mar 22, 2018 ADVANCE DIRECTIVE JASWANT DICKINSON [facility] Encounter Notes: All associated encounter notes This section contains the clinical notes associated to the Encounter. Date/Time Encounter Note(s) Provider Source Nov 25, 2023 09:21 AM ADMINISTRATIVE NOTE: LOCAL TITLE: ADMINISTRATIVE RECALL NOTE STANDARD TITLE: ADMINISTRATIVE NOTE DATE OF NOTE: NOV 25, 2023@09:21 ENTRY DATE: NOV 25, 2023@09:21:11 AUTHOR: KINGS DEJESUS EXP COSIGNER: URGENCY: STATUS: COMPLETED RTC orders: Unable to contact patient: Attempts to contact: 1st attempt: Left voicemail 2nd attempt: Letter mailed Disposition on December 3rd attempt: 4th attempt: PID 03/22/2024 /dheeraj/ KINGS DEJESUS Signed: 11/25/2023 09:21 KINGS DEJESUS [facility] Nov 25, 2023 09:20 AM LETTERS: LOCAL TITLE: PATIENT LETTER (B) STANDARD TITLE: LETTERS DATE OF NOTE: NOV 25, 2023@09:20 ENTRY DATE: NOV 25, 2023@09:20:26 AUTHOR: KINGS DEJESUS EXP COSIGNER: URGENCY: STATUS: COMPLETED [facility] Toll Free Number [facility] scheduling can be reached at ext. [phone] [facility]- ext. [phone] [facility]- ext. [phone] [facility]- ext. [phone] NOV 25, 2023 COLBY HARTLEY [address] [place] [id number] Dear COLBY HARTLEY II Thank you for choosing the Department of [facility] ([place]) [facility] as your primary choice for health care. As a partner in your health care, we are contacting you in writing since we have been unsuccessful in our attempts to reach you to date. We want to assure you we are doing everything possible to schedule Veterans for their CT medical care appointments. Our records indicate you are due for an appointment in PAIN CLINIC. If you would like to be seen, please contact [facility] at ext. [phone] to schedule an appointment. Thank you for your service to our nation, and we look forward to hearing from you soon. Sincerely, [facility] [address] [place] [address] [place] [address] [facility] [address] [facility] [address] [place] [address] [place] [address] ext. [phone] [facility] [address] [facility] [address] [place] [address] [place] [address] ext. [phone] [facility] [address] [place] [address] ext. [phone] [facility] [place] [facility]
--- OUTSIDE RECORDS SUMMARY | 2024-08-18 09:58 | XMS_ITS | Encounter Summary ---
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 Date/Time Encounter Type Encounter Description Reason Provider Source Dec 01, 2023 03:30 PM THERAPEUTIC EXERCISES PHYSICAL THERAPY ICD-10-CM M22.42 Chondromalacia patellae, left knee ANGEL ELLIOTT Martin Encounter Template Text not used by [place] Assessments - Encounter Diagnoses This section includes the primary and secondary diagnoses documented for the Encounter. Date/Time Primary/Secondary Diagnosis Diagnosis Name Provider Source Dec 01, 2023 03:29 PM PRIMARY Chondromalacia patellae, left knee URSULA ELLIOTT [place] Plan of Treatment: Future Appointments (+ 6 months) and Future Tests (+/- 45 days) The Plan of Treatment section includes future care activities for the patient [facility] This section includes future appointments and future orders which are active, pending or scheduled. Future Appointments This section includes appointments that were scheduled to occur 6 months from the date of the Encounter, up to a maximum of 20 appointments. The data comes from all [place] treatment facilities. Appointment Date/Time Appointment Type Appointme nt Facility Name Dec 08, 2023 09:00 AM AMBULATORY - REHAB MEDICIN E [place] January 05, 2024 01:00 PM AMBULATORY - REHAB MEDICIN [facility] [place] [facility] Jan 15, 2024 09:30 AM AMBULATORY - REHAB MEDICIN E [place] Feb 23, 2024 09:00 AM AMBULATORY - MEDICINE [place] [facility] [place] [facility] Feb 25, 2024 01:00 PM AMBULATORY - REHAB MEDICIN E [facility] [facility] Mar 21, 2024 10:00 AM AMBULATORY - MEDICINE [place] [facility] [place] [facility] Mar 24, 2024 01:00 PM AMBULATORY - MEDICINE [place] [facility] [place] [facility] Apr 06, 2024 10:00 AM AMBULATORY - MEDICINE [place] [facility] [place] [facility] May 24, 2024 12:00 PM AMBULATORY - NONE [facility] [facility] May 31, 2024 11:30 AM AMBULATORY - MEDICINE [place] [facility] [place] [facility] Lab Results: +/- 30 days of the encounter This section includes the Chemistry and Hematology Lab Results on record with [place] for the patient. Radiology Reports and Pathology Reports are provided separately, in subsequent sections. Lab Results This section contains the Chemistry/Hematology Results that were resulted 30 days before or 30 daysafter the date of the Encounter. Date/Time Source Result Type Result - Unit Interpretation Reference Range Comment Nov 09, 2023 08:51 AM [place] [facility] [place] [facility] LIPID PANEL FASTING Specimen Type: SERUM No comment entered. Ordering Provider: EHSAN OVALLES Report Released Date/Time: May 12, 2023 10:46 AM Reporting Lab: [facility] W[facility] [address] [address] Performing Lab: [address] [address] CHOLESTEROL 286 mg/dL H TRIGLYCERIDE 111 mg/dL 0-150 LDL calculated 226 mg/dL H 0-129 CHOL/HDL 7.5 HDL CHOLESTEROL 38 mg/dL L 40-60 Nov 09, 2023 08:51 AM [facility] LIVER FUNCTION Specimen Type: SERUM No comment entered. Ordering Provider: EHSAN OVALLES Report Released Date/Time: May 12, 2023 10:46 AM Reporting Lab: [address] [address] Performing Lab: [address] [address] PROTEIN,TOTAL 7.2 g/dL 6.0-8.3 ALBUMIN 4.0 g/dL 3.5-5.0 ALKALINE PHOSPHATASE 68 U/L 40-150 AST 21 U/L 5-34 ALT 40 U/L BILIRUBIN, TOTAL 0.6 mg/dL 0.2-1.2 Nov 09, 2023 08:51 AM [facility] BASIC METABOLIC PANEL (fasting) Specimen Type: SERUM No comment entered. Ordering Provider: EHSAN OVALLES Report Released Date/Time: May 12, 2023 10:46 AM Reporting Lab: [address] [address] Performing Lab: [address] [address] UREA NITROGEN 25 mg/dL 7-25 GLUCOSE 97 [...] and tobacco- related health factors from the [place] facility where the Encounter took place. Current Smoking Status This section includes the most current smoking, or tobacco-related health factor, from the [place] facility where the Encounter took place. Date/Time Current Smoking Status Comment Facil ity May 26, 2022 10:00 AM VA-TOBACCO NEVER USED [place] Tobacco Use History This section includes a history of the smoking, or tobacco-related health factors, that were collected on or before the date of the Encounter. The data comes from the [place] facility where the Encounter took place. Date/Time Smoking Status/Tobacco Use Comment Trisha renae May 21, 2021 03:00 PM VA-TOBACCO NEVER USED [place] Aug 08, 2019 11:05 AM VA-TOBACCO NEVER USED [place] Jun 28, 2018 03:14 PM VA-TOBACCO NEVER USED [place] May 28, 2017 08:56 AM LIFETIME NON-TOBACCO USER [place] Advance Directives: All historical and current Section Date Range: From patient's date of to the date document was created. This section includes ALL of a patient's completed or amended [place] Advance and Rescinded Directives. The entries below indicate that a directive exists for the patient, but an actual copy is not included with this document. The data comes from all [place] facilities. Date Advance Directives Provider Source Mar 22, 2018 ADVANCE DIRECTIVE JASWANT DICKINSON [place] [facility] Encounter Notes: All associated encounter notes This section contains the clinical notes associated to the Encounter. Date/Time Encounter Note(s) Provider Source Dec 01, 2023 03:27 PM PHYSICAL THERAPY N OTE: [facility] TITLE: PHYSICAL THERAPY STANDARD TITLE: PHYSICAL THERAPY NOTE DATE OF NOTE: DEC 01, 2023@15:27 ENTRY DATE: DEC 01, 2023@15:27:14 AUTHOR: RICHARDSON ELLIOTT COSIGNER: URGENCY: STATUS: COMPLETED Initial Evaluation date: 11/26/23 Treatment #: eval+1 Treatment time: 30 min Diagnosis: Chondromalacia Patellae, left Knee (ICD-10-CM M22.42) (Primary) Provider: Rob Bailey identified by full name and SUBJECTIVE: [place] states pain remains in the posterior knee extending down the calf. Ready to begin PT. OBJECTIVE: Today's treatment: THERAPEUTIC EXERCISE: MINUTES: 28 Access Code: [email or web address] URL: [email or web address] Date: 12/01/2023 Prepared by: Richardson Elliott Exercises - Nu step 5 min level 6 - Supine Peroneal Nerve [place] - 1 x daily - 5 x weekly - 2 sets - 15-25 reps - Calf Mobilization with KB - Sidelying Hip Abduction - 1 x daily - 5 x weekly - 2 sets - 15-25 reps - Standing Gastroc Stretch on Step - 1 x daily - 5 x weekly - 2 sets - 2 reps - 30 hold - Standing Hamstring Stretch with Step - 1 x daily - 5 x weekly - 2 sets - 1 reps - 30 hold - Single Leg Stance - 1 x daily - 5 x weekly - 2 sets - 2 reps - 30 hold - Standing Hip Abduction with Counter Support - 1 x daily - 5 x weekly - 2 sets - 15-25 reps SELF CARE/EDUCATION: MINUTES: -- [place] was educated on the implementation of the home exercise routine. They were able to verbalize and comprehend the purpose of the movements and could perform the activities independently. ASSESSMENT: Focused on independent nerve glides, myofascial release, and balance during today's session. Difficulty with SL on the left lower extremity. PLAN: 1 time per week. /dheeraj/ RICHARDSON ELLIOTT DPT Physical Therapist Signed: 12/01/2023 16:07 RICHARDSON ELLIOTT [place]
--- OUTSIDE RECORDS SUMMARY | 2024-08-18 09:58 | XMS_ITS | Encounter Summary ---
Author Name [facility] [place] Address [address] [place] [address] Care Team Providers Care Salesperson Hearing Aids Name Role Phone EHSAN OVALLES Primary Care [...] PART A December 08, 2013 PART A [id number] [phone] BRIGID RAMOS PATIENT MEDICARE (WNR) MEDICARE (M) PART A December 08, 2013 PART A [id number] [phone] GARRICK BRIGID DAMICO PATIENT Selected Encounter This section includes the information on record at [place] for the Encounter. Date/Time Encounter Type Encounter Description Reason Provider Source Nov 26, 2023 10:30 AM SELF CARE MNGMENT TRAINING PHYSICAL THERAPY ICD-10-CM M22.42 Chondromalacia patellae, left knee ANGEL MCDONALD Martin Encounter Template Text not used by [facility] Assessments - Encounter Diagnoses This section includes the primary and secondary diagnoses documented for the Encounter. Date/Time Primary/Secondary Diagnosis Diagnosis Name Provider Source Nov 26, 2023 11:13 AM PRIMARY Chondromalacia patellae, left knee URSULA MCDONALD [facility] Plan of Treatment: Future Appointments (+ 6 months) and Future Tests (+/- 45 days) The Plan of Treatment section includes future care activities for the patient from all [place] [facility] This section includes future appointments and future orders which are active, pending or scheduled. Future Appointments This section includes appointments that were scheduled to occur 6 months from the date of the Encounter, up to a maximum of 20 appointments. The data comes from all [place] treatment facilities. Appointment Date/Time Appointment Type Appointme nt Facility Name Dec 01, 2023 09:45 AM AMBULATORY - MEDICINE [place] [facility] Dec 01, 2023 03:30 PM AMBULATORY - REHAB MEDICIN E [facility] Dec 08, 2023 09:00 AM AMBULATORY - REHAB MEDICIN E [facility] January 05, 2024 01:00 PM AMBULATORY - REHAB MEDICIN E [place] [facility] Jan 15, 2024 09:30 AM AMBULATORY - REHAB MEDICIN E [facility] Feb 23, 2024 09:00 AM AMBULATORY - MEDICINE [place] C [place] [facility] Feb 25, 2024 01:00 PM AMBULATORY - REHAB MEDICIN E [place] [facility] Mar 21, 2024 10:00 AM AMBULATORY - MEDICINE [place] C [place] [facility] Mar 24, 2024 01:00 PM AMBULATORY - MEDICINE [place] C [place] [facility] Apr 06, 2024 10:00 AM AMBULATORY - MEDICINE [place] C [place] [facility] May 24, 2024 12:00 PM [facility] Lab Results: +/- 30 days [...] Range Comment Nov 09, 2023 08:51 AM [facility] LIP[facility] FASTING Specimen Type: SERUM No comment entered. Ordering Provider: EHSAN OVALLES Report Released Date/Time: May 12, 2023 10:46 AM Reporting [facility] [address] [address] Performing Lab: [facility] [address] [facility] [address] CHOLESTEROL 286 mg/dL H TRIGLYCERIDE 111 mg/dL 0-150 LDL calculated 226 mg/dL H 0-129 CHOL/HDL 7.5 HDL CHOLESTEROL 38 mg/dL L 40-60 Nov 09, 2023 08:51 AM [facility] LIVER FUNCTION Specimen Type: SERUM No comment entered. Ordering Provider: EHSAN OVALLES Report Released Date/Time: May 12, 2023 10:46 AM Reporting Lab: [facility] [address] [facility] [address] Performing Lab: [address] [address] PROTEIN,TOTAL 7.2 g/dL 6.0-8.3 ALBUMIN 4.0 g/dL 3.5-5.0 ALKALINE PHOSPHATASE 68 U/L 40-150 AST 21 U/L 5-34 ALT 40 U/L BILIRUBIN, TOTAL 0.6 mg/dL 0.2-1.2 Nov 09, 2023 08:51 AM [facility] BASIC METABOLIC PANEL (fasting) Specimen Type: SERUM No comment entered. Ordering Provider: EHSAN OVALLES Report Released Date/Time: May 12, 2023 10:46 AM Reporting Lab: [address] [address] Performing Lab: [address] [address] UREA NITROGEN 25 mg/dL 7-25 GLUCOSE 97 [...] Current Smoking Status Comment Jose armstrong May 26, 2022 10:00 AM VA-TOBACCO NEVER USED [facility] Tobacco Use History This section includes a history of the smoking, or tobacco-related health factors, that were collected on or before the date of the Encounter. The data comes from the [place] facility where the Encounter took place. Date/Time Smoking Status/Tobacco Use Comment F acility May 21, 2021 03:00 PM VA-TOBACCO NEVER USED [facility] Aug 08, 2019 11:05 AM VA-TOBACCO NEVER USED [facility] Jun 28, 2018 03:14 PM VA-TOBACCO NEVER USED [facility] May 28, 2017 08:56 AM LIFETIME NON-TOBACCO USER [facility] Advance Directives: All historical and current Section [...] DIRECTIVE JASWANT DICKINSON [place] Val NTRL [facility] Encounter Notes: All associated encounter notes This section contains the clinical notes associated to the Encounter. Date/Time Encounter Note(s) Provider Source Nov 26, 2023 11:12 AM PHYSICAL THERAPY C ONSULT: [facility] TITLE: PHYSICAL THERAPY CONSULT STANDARD TITLE: PHYSICAL THERAPY CONSULT DATE OF NOTE: NOV 26, 2023@11:12 ENTRY DATE: NOV 26, 2023@11:13:05 AUTHOR: NORI MCDONALD COSIGNER: URGENCY: STATUS: COMPLETED Initial Evaluation date: 11/26/23 Treatment #: eval Treatment time: 40 min Diagnosis: Chondromalacia Patellae, left Knee (ICD-10-CM M22.42) (Primary) Provider: Rob Bailey identified by full name and SUBJECTIVE: [place] states that he started to have left knee pain after playing soccer 2 years ago. He feels the knee pain began around the same time period as his left lower extremity sciatica. The sciatica has been managed with injections, however, he continues to get posterior knee pain with symptoms extending down the calf and into the Achillies tendon. He primarily walks for exercise and has been working to lose weight via a high animal protein diet. An open MRI was recommended, however, was unable to complete the exam citing difficulty breathing when laying on his back. Pain is most severe after being sedentary and improves with walking. He is hopeful PT can improve his pain. Date of onset: Current 10/17; worst 04/19 (x) Gradual ( ) Rapid PACO: ?? Since onset: ( ) Worsening ( ) Improving (x) Staying the same C/O: (x) Pain location: Left knee, posterior ending down the calf (x) ROM loss: Limited knee flexion (x) Strength loss: Left leg weakness ( ) Sensory loss: Improves w/: Gentle calf stretches, eccentric strengthening of the calf, walking, medications. Increases w/: Flexing the knee. Static positions. Pt. goal: Improve strength and range of motion OBJECTIVE: Observation: Ambulates without limp, no visible knee swelling LE Neuro Screen: Reflexes: (0, 1+, 2+, 3+, 4+) L4 Patellar 2+ 2+ S1 Achilles 2+ 2+ Myotomes: See MMT ROM: AROM: (R) (L) PROM (R) (L) *Pain Knee flex: 140 100* empty end feel Extension: 0 0 MMT / Myotomes (R) (L) *pain Hip flex L2 5 5 Int rot: 5 5 Ext rot: 5 4- Abduction: 5 4- Knee flex L5: 5 5 Extension L3 5 4 Ankle DF L4 5 5 Knee Special Tests MCL (-) (-) LCL (-) (-) Anterior drawer (-) (-) Posterior drawer (-) (-) SLS 5 seconds bilaterally ASSESSMENT: is a 54 year old male presenting to PT with left knee pain and limitations in knee flexion. Pain and guarding limited special testing, however meniscal injury is not suspected due to empty painful end feel with passive knee flexion. Will focus on nerve glides, balance and lower extremity strength to improve joint health. GOALS: 1.)Knee flexion 120 deg 2.)Hip and knee strength at least a 4+/5 3.)Pain no greater than a 10/1077 4.)Rx HEP in 4 visits PLAN OF CARE: Aerobic exercise. Lower extremity nerve glides. Gastroc independent myofascial release techniques. Gentle calf stretches. Eccentric calf strengthening. Hip and core stability training. Lateral hip strengthening. Balance and proprioception activities. Single leg dynamic movements if tolerated. Functional movement patterns if tolerated. Bracing and other modalities for pain. 4 appointments scheduled. TODAYS TREATMENT: Advised to continue walking outdoors. Continue self-prescribed eccentric exercises for the left calf. Edu on plan of care. Thank you for this consultation and allowing the PT team to participate in this patient's care. Please do not hesitate to contact us if you have any questions. All treatments to be implemented at tolerance of pt. and discretion of therapist(s). Pt is in agreement with above goals and plan of care and will be discharged when goals are met or pt. has plateaued in progress. /dheeraj/ NORI MCDONALD DPT Physical Therapist Signed: 11/26/2023 11:58 NORI MCDONALD [facility]
--- OUTSIDE RECORDS SUMMARY | 2024-08-18 09:58 | XMS_ITS | Encounter Summary ---
Author Name [facility] [place] [place] Organization [place] Address [address] [place] [address] Care Team Providers Care Infection Control Manager Name Role Phone EHSAN OVALLES Primary Care [...] PART A December 08, 2013 PART A [id number] BRIGID RAMOS PATIENT MEDICARE (WNR) MEDICARE (M) PART A December 08, 2013 PART A [id number] [phone] BRIGID RAMOS PATIENT Selected Encounter This section includes the information on record at [place] for the Encounter. Date/Time Encounter Type Encounter Description Reason Provider Source Dec 08, 2023 09:00 AM MANUAL THERAPY 1/> [facility] PHYSICAL THERAPY ICD-10-CM M22.42 Chondromalacia patellae, left knee ANGEL MCDONALD Martin Encounter Template Text not used by [place] Assessments - Encounter Diagnoses This section includes the primary and secondary diagnoses documented for the Encounter. Date/Time Primary/Secondary Diagnosis Diagnosis Name Provider Source Dec 08, 2023 09:24 AM PRIMARY Chondromalacia patellae, left knee URSULA MCDONALD H[place] Plan of Treatment: Future Appointments (+ 6 months) and Future Tests (+/- 45 days) The Plan of Treatment section includes future care activities for the patient from all [place] [facility]. This section includes future appointments and future orders which are active, pending or scheduled. Future Appointments This section includes appointments that were scheduled to occur 6 months from the date of the Encounter, up to a maximum of 20 appointments. The data comes from all [place] treatment facilities. Appointment Date/Time Appointment Type Appointme nt Facility Name January 05, 2024 01:00 PM AMBULATORY - REHAB MEDICIN E [place] [facility] Jan 15, 2024 09:30 AM AMBULATORY - REHAB MEDICIN E [facility] Feb 23, 2024 09:00 AM AMBULATORY - MEDICINE [place] [facility] Feb 25, 2024 01:00 PM AMBULATORY - REHAB MEDICIN E [place] [facility] Mar 21, 2024 10:00 AM AMBULATORY - MEDICINE [place] C [place] [facility] Mar 24, 2024 01:00 PM AMBULATORY - MEDICINE [place] C [place] [facility] Apr 06, 2024 10:00 AM AMBULATORY - MEDICINE [place] C [place] [facility] May 24, 2024 12:00 PM AMBULATORY - NONE [place] [facility] May 31, 2024 11:30 AM AMBULATORY - MEDICINE [place] C [place] [facility] Jun 03, 2024 09:50 AM AMBULATORY - MEDICINE [place] C [place] [facility] Jun 07, 2024 11:30 AM [facility] Lab Results: +/- 30 days of the encounter This section includes the Chemistry and Hematology Lab Results on record with [place] for the patient. Radiology Reports and Pathology Reports are provided separately, in subsequent sections. Lab Results This section contains the Chemistry/Hematology Results that were resulted 30 days before or 30 daysafter the date of the Encounter. Date/Time Source Result Type Result - Unit Interpretation Reference Range Comment Nov 09, 2023 08:51 AM [place] [facility] [place] [facility] LIPID PANEL FASTING Specimen Type: SERUM No comment entered. Ordering Provider: EHSAN OVALLES Report Released Date/Time: May 12, 2023 10:46 AM Reporting Lab: [place] [facility] [address] [facility] [address] Performing Lab: [facility] [address] [facility] [address] CHOLESTEROL 286 mg/dL H TRIGLYCERIDE 111 mg/dL 0-150 LDL calculated 226 mg/dL H 0-129 CHOL/HDL 7.5 HDL CHOLESTEROL 38 mg/dL L 40-60 Nov 09, 2023 08:51 AM [facility] LIVER FUNCTION Specimen Type: SERUM No comment entered. Ordering Provider: EHSAN OVALLES Report Released Date/Time: May 12, 2023 10:46 AM Reporting Lab: [address] [address] Performing Lab: [address] [address] PROTEIN,TOTAL 7.2 g/dL 6.0-8.3 ALBUMIN 4.0 g/dL 3.5-5.0 ALKALINE PHOSPHATASE 68 U/L 40-150 AST 21 U/L 5-34 ALT 40 U/L BILIRUBIN, TOTAL 0.6 mg/dL 0.2-1.2 Nov 09, 2023 08:51 AM [facility] BASIC METABOLIC PANEL (fasting) Specimen Type: SERUM No comment entered. Ordering Provider: EHSAN OVALLES Report Released Date/Time: May 12, 2023 10:46 AM Reporting Lab: [address] [address] Performing Lab: [address] [address] UREA NITROGEN 25 mg/dL 7-25 GLUCOSE 97 [...] and tobacco- related health factors from the [place] facility where the Encounter took place. Current Smoking Status This section includes the most current smoking, or tobacco-related health factor, from the [place] facility where the Encounter took place. Date/Time Current Smoking Status Comment Jose armstrong May 26, 2022 10:00 AM VA-TOBACCO NEVER USED [facility] Tobacco Use History This section includes a history of the smoking, or tobacco-related health factors, that were collected on or before the date of the Encounter. The data comes from the [place] facility where the Encounter took place. Date/Time Smoking Status/Tobacco Use Comment F acility May 21, 2021 03:00 PM VA-TOBACCO NEVER USED [facility] Aug 08, 2019 11:05 AM VA-TOBACCO NEVER USED [facility] Jun 28, 2018 03:14 PM VA-TOBACCO NEVER USED [facility] May 28, 2017 08:56 AM LIFETIME NON-TOBACCO USER [facility] Advance Directives: All historical and current Section Date Range: From patient's date of to the date document was created. This section includes ALL of a patient's completed or amended [place] Advance and Rescinded Directives. The entries below indicate that a directive exists for the patient, but an actual copy is not included with this document. The data comes from all [place] facilities. Date Advance Directives Provider Source Mar 22, 2018 ADVANCE DIRECTIVE JASWANT DICKINSON [place] Val NTRL [facility] [facility] Encounter Notes: All associated encounter notes This section contains the clinical notes associated to the Encounter. Date/Time Encounter Note(s) Provider Source Dec 08, 2023 09:23 AM PHYSICAL THERAPY N OTE: [facility] TITLE: PHYSICAL THERAPY STANDARD TITLE: PHYSICAL THERAPY NOTE DATE OF NOTE: DEC 08, 2023@09:23 ENTRY DATE: DEC 08, 2023@09:23:38 AUTHOR: NORI MCDONALD COSIGNER: URGENCY: STATUS: COMPLETED Initial Evaluation date: 11/26/23 Treatment #: eval+2 Treatment time: 30 min Diagnosis: Chondromalacia Patellae, left Knee (ICD-10-CM M22.42) (Primary) Provider: Rob Bailey identified by full name and SUBJECTIVE: [place] states the knee feels a bit worse today. Attributes increase in pain from performing yard work on a hill OBJECTIVE: Today's treatment: THERAPEUTIC EXERCISE: MINUTES: 10 Nu step 10 min MANUAL THERAPY: MINUTES: 20 Myofascial release to the gastroc, soleus, plantaris and popliteal muscles Prox fibular mobilization SELF CARE/EDUCATION: MINUTES: -- [place] was educated on the implementation of the home exercise routine. They were able to verbalize and comprehend the purpose of the movements and could perform the activities independently. ASSESSMENT: Muscle knots noted in the upper calf & popliteal region. Some discomfort during PT, however, he was able to walk out of the clinic without distress. PLAN: Cont. per POC /es/ NORI MCDONALD DPT Physical Therapist Signed: 12/08/2023 09:26 NORI MCDONALD [place]
--- OUTSIDE RECORDS SUMMARY | 2024-08-18 09:59 | XMS_ITS | Encounter Summary ---
Author Name Department of [place] Organization [place] Address [address] [place] [address] Care Team Providers Care Cloth Bleaching Range Operator Chief Name Role Phone EHSAN OVALLES Primary Care [...] PART A December 08, 2013 PART A [id number] [facility] [phone] BRIGID RAMOS PATIENT MEDICARE (WNR) MEDICARE (M) PART A December 08, 2013 PART A [id number] BRIGID RAMOS Rhina PATIENT Selected Encounter This section includes the information on record at [place] for the Encounter. Date/Time Encounter Type Encounter Description Reason Provider Source Jan 15, 2024 09:30 AM THERAPEUTIC EXERCISES PHYSICAL THERAPY ICD-10-CM M22.42 Chondromalacia patellae, left knee ANGEL MCDONALD Martin Encounter Template Text not used by [place] Assessments - Encounter Diagnoses This section includes the primary and secondary diagnoses documented for the Encounter. Date/Time Primary/Secondary Diagnosis Diagnosis Name Provider Source Jan 15, 2024 09:58 AM PRIMARY Chondromalacia patellae, left knee URSULA MCDONALD ULMER Plan of Treatment: Future Appointments (+ 6 months) and Future Tests (+/- 45 days) The Plan of Treatment section includes future care activities for the patient from all [place] [facility]. This section includes future appointments and future orders which are active, pending or scheduled. Future Appointments This section includes appointments that were scheduled to occur 6 months from the date of the Encounter, up to a maximum of 20 appointments. The data comes from all [facility]. Appointment Date/Time Appointment Type Appointme nt Facility Name Feb 23, 2024 09:00 AM AMBULATORY - MEDICINE [place] C [place] [facility] Feb 25, 2024 01:00 PM AMBULATORY - REHAB MEDICIN E [place]TRL [place] [facility] Mar 21, 2024 10:00 AM AMBULATORY - MEDICINE [facility] NTRL [place] [facility] Mar 24, 2024 01:00 PM AMBULATORY - MEDICINE [place] C [place]TR[place] [facility] Apr 06, 2024 10:00 AM AMBULATORY - MEDICINE [facility] NTRL [place] [facility] May 24, 2024 12:00 PM AMBULATORY - NONE [place] [facility]TRL [place] [facility] May 31, 2024 11:30 AM AMBULATORY - MEDICINE [facility] NTRL [place] [facility] Jun 03, 2024 09:50 AM AMBULATORY - MEDICINE [facility] NTRL [place] [facility] Jun 07, 2024 11:30 AM [facility] Active, Pending, and Scheduled Orders This section includes a listing of several types of active, pending, and scheduled orders, including clinic medications orders, diagnostic test orders, procedure orders and consult orders; where the start date of the order is 45 days before the date of the Encounter or 45 days after the date of theEncounter. The data comes from all [facility]. Test Date/Time Test Type Test Details Facility Name Feb 15, 2024 02:34 PM Consult Order COMMUNITY CARE-COLONOSCOPY SCREENING Cons Supervisor Bottle House [employer] [facility] Social History: Smoking Status (Most current) and Tobacco Use (All prior to encounter date) This section includes the most current, and the historical, smoking and tobacco- related health factors from the [place] facility where the Encounter took place. Current Smoking Status This section includes the most current smoking, or tobacco-related health factor, from the [place] facility where the Encounter took place. Date/Time Current Smoking Status Comment Facil ity May 26, 2022 10:00 AM VA-TOBACCO NEVER USED [facility] Tobacco Use History This section includes a history of the smoking, or tobacco-related health factors, that were collected on or before the date of the Encounter. The data comes from the [place] facility where the Encounter took place. Date/Time Smoking Status/Tobacco Use Comment Trisha renae May 21, 2021 03:00 PM VA-TOBACCO NEVER USED [facility] Aug 08, 2019 11:05 AM VA-TOBACCO NEVER USED [facility] Jun 28, 2018 03:14 PM VA-TOBACCO NEVER USED [facility] May 28, 2017 08:56 AM LIFETIME NON-TOBACCO USER [facility] Advance Directives: All historical and current Section Date Range: From patient's date of to the date document was created. This section includes ALL of a patient's completed or amended [place] Advance and Rescinded Directives. The entries below indicate that a directive exists for the patient, but an actual copy is not included with this document. The data comes from all [place] facilities. Date Advance Directives Provider Source Mar 22, 2018 ADVANCE DIRECTIVE JASWANT DICKINSON [place] Val NTRL [facility] Encounter Notes: All associated encounter notes This section contains the clinical notes associated to the Encounter. Date/Time Encounter Note(s) Provider Source Jan 15, 2024 09:57 AM PHYSICAL THERAPY N OTE: [facility] TITLE: PHYSICAL THERAPY STANDARD TITLE: PHYSICAL THERAPY NOTE DATE OF NOTE: JAN 15, 2024@09:57 ENTRY DATE: JAN 15, 2024@09:57:42 AUTHOR: NORI MCDONALD COSIGNER: URGENCY: STATUS: COMPLETED Initial Evaluation date: 11/26/23 Treatment #: eval+3 Treatment time: 30 min Diagnosis: Chondromalacia Patellae, left Knee (ICD-10-CM M22.42) (Primary) Provider: Rob Bailey identified by full name and SUBJECTIVE: states he has not had any pain since his recent knee injection. Ready to continue in PT. OBJECTIVE: Today's treatment: THERAPEUTIC EXERCISE: MINUTES: 30 - Nu step 8 min level 7 - Single Leg Stance - 1 x daily - 5 x weekly - 2 sets - 2 reps - 30 hold - Sidelying Hip Abduction - 1 x daily - 5 x weekly - 2 sets - 15-25 reps - Supine Bridge with Heels on Congolese Ball and Knees Bent - 1 x daily - 5 x weekly - 2 sets - 15-25 reps - Squat with Chair Touch and Resistance Loop - 1 x daily - 5 x weekly - 2 sets - 15-25 reps - Side Stepping with Resistance at Thighs - 1 x daily - 5 x weekly - 2 sets - 15-25 reps - Forward Monster Walk with Resistance at Thighs and Counter Support - 1 x daily - 5 x weekly - 2 sets - 15-25 reps - Backward Monster Walk with Resistance at Thighs and Counter Support - 1 x daily - 5 x weekly - 2 sets - 15-25 reps - Hip 3 direction with green loop around knee's SELF CARE/EDUCATION: MINUTES: -- was educated on the implementation of the home exercise routine. They were able to verbalize and comprehend the purpose of the movements and could perform the activities independently. ASSESSMENT: Tolerated treatment well without complications. Will continue with knee stability and strengthening exercises while he is pain free from the cortisone injection. PLAN: Cont. per UMESH /dheeraj/ NORI MCDONALD DPT Physical Therapist Signed: 01/15/2024 10:00 NORI MCDONALD ULMER
--- OUTSIDE RECORDS SUMMARY | 2024-08-18 09:59 | XMS_ITS ---
Author Name [facility] [place] Organization [place] Address [address] [place] [address] Care Team Providers Care Metal Worker Name Role Phone EHSAN OVALLES Primary [...] PART A December 08, 2013 PART A [id number] BRIGID RAMOS PATIENT MEDICARE (WNR) MEDICARE (M) PART A December 08, 2013 PART A [id number] BRIGID RAMOS PATIENT Selected Encounter This section includes the information on record at [place] for the Encounter. Date/Time Encounter Type Encounter Description Reason Pro vider Source Feb 09, 2024 09:49 AM Outpatient Encounter PRIMARY CARE/MEDICINE IHE Encounter Template Text not used by [place] Plan of Treatment: Future Appointments (+ 6 [...] 23, 2024 09:00 AM AMBULATORY - MEDICINE [place] [facility] Feb 25, 2024 01:00 PM AMBULATORY - REHAB MEDICIN E [place] [facility] Mar 21, 2024 10:00 AM AMBULATORY - MEDICINE [place] [facility] Mar 24, 2024 01:00 PM AMBULATORY - MEDICINE [place] [facility] Apr 06, 2024 10:00 AM AMBULATORY - MEDICINE [place] [facility] May 24, 2024 12:00 PM AMBULATORY - NONE [place] [facility] May 31, 2024 11:30 AM AMBULATORY - MEDICINE [place] [facility] Jun 03, 2024 09:50 AM AMBULATORY - MEDICINE [place] [facility] Jun 07, 2024 11:30 AM [facility] [place] [facility] Jul 27, 2024 02:30 PM [facility] Active, Pending, and Scheduled Orders [...] The data comes from all [facility]. Test Date/Time Test Type Test Details Facility Name Feb 15, 2024 02:34 PM Consult Order COMMUNITY CARE-COLONOSCOPY SCREENING Cons Machine Operator Transplanter's Choice [facility] Social History: Smoking Status (Most current) and Tobacco Use (All prior to encounter date) This section includes the most current, and the historical, smoking and tobacco- related health factors from the [place] facility where the Encounter took place. Current Smoking Status This section includes the most current smoking, or tobacco-related health factor, from the [place] facility where the Encounter took place. Date/Time Current Smoking Status Hafsa armstrong May 12, 2023 10:46 AM [place]-TOBACCO NEVER USED [facility] Tobacco Use History This section includes a history of the smoking, or tobacco-related health factors, that were collected on or before the date of the Encounter. The data comes from the [place] facility where the Encounter took place. Date/Time Smoking Status/Tobacco Use Comment Trisha renae Oct 20, 2015 10:30 AM L[facility] Sep 19, 2009 11:13 AM LIFETIME NON-TOBACCO USER [facility] Advance Directives: All historical and current Section Date Range: From patient's date of to the date document was created. This section includes ALL of a patient's completed or amended [place] Advance and Rescinded Directives. The entries below indicate that a directive exists for the patient, but an actual copy is not included with this document. The data comes from all [place] facilities. Date Advance Directives Provider Source Mar 22, 2018 ADVANCE DIRECTIVE JASWANT DICKINSON [facility] Encounter Notes: All associated encounter notes This section contains the clinical notes associated to the Encounter. Date/Time Encounter Note(s) Provider Source Feb 09, 2024 09:49 AM PRIMARY CARE SECUR E MESSAGING: LOCAL TITLE: PRIMARY CARE SECURE MESSAGING STANDARD TITLE: PRIMARY CARE SECURE MESSAGING DATE OF NOTE: FEB 09, 2024@09:49 ENTRY DATE: FEB 09, 2024@10:49:13 AUTHOR: LATASHA BARON EXP COSIGNER: URGENCY: STATUS: COMPLETED PRIMARY CARE SECURE MESSAGING Has ADDENDA ------Original Message ----- Sent: 02/09/2024 10:46 AM ET From: DONELL HARTLEY To: Adarsh OVALLES_PRIMARY CARE_SPOPC Subject: Appointment:Community care renewal Sultana, I need renewals for my chiropractic and acupuncture services. Thank you, Donell Becerril /dheeraj/ LATASHA BARON ADVANCED BUS DRIVER SUPERVISOR Signed: 02/09/2024 10:49 Receipt Acknowledged By: 02/09/2024 11:08 /eileen DOSS RN REGISTERED NURSE 02/09/2024 11:08 /es/ TAMEKA FALES, RN REGISTERED NURSE for ADEN VALLECILLO 02/09/2024 ADDENDUM STATUS: COMPLETED Consults placed and held for provider signature. /dheeraj/ TAMEKA DOSS RN REGISTERED NURSE Signed: 02/09/2024 11:09 [facility]ON [facility]
--- OUTSIDE RECORDS SUMMARY | 2024-08-18 09:59 | XMS_ITS | Encounter Summary ---
Author Name [place] Address [address] [place] [address] Care Team Providers Care Director Of Architecture Name Role Phone EHSAN OVALLES Primary Care [...] PART A December 08, 2013 PART A [id number] BRIGID RAMOS PATIENT MEDICARE (WNR) MEDICARE (M) PART A December 08, 2013 PART A [id number] BRIGID RAMOS PATIENT Selected Encounter This section includes the information on record at [place] for the Encounter. Date/Time Encounter Type Encounter Description Reason Pro vider Source Feb 08, 2024 11:09 AM Outpatient Encounter COMMUNITY CARE CONSULT IHE Encounter Template Text not used by [place] Plan of Treatment: Future Appointments (+ 6 [...] 23, 2024 09:00 AM AMBULATORY - MEDICINE [place] [facility] Feb 25, 2024 01:00 PM AMBULATORY - REHAB MEDICIN E [place] [facility] Mar 21, 2024 10:00 AM AMBULATORY - MEDICINE [place] [facility] Mar 24, 2024 01:00 PM AMBULATORY - MEDICINE [place] [facility] Apr 06, 2024 10:00 AM AMBULATORY - MEDICINE [place] [facility] May 24, 2024 12:00 PM AMBULATORY - NONE [place] [facility] May 31, 2024 11:30 AM AMBULATORY - MEDICINE [facility] N[facility]L [place] [facility] Jun 03, 2024 09:50 AM AMBULATORY - MEDICINE [place] [facility] Jun 07, 2024 11:30 AM AMBULATORY - NONE [place] [facility] Jul 27, 2024 02:30 PM [facility] Active, Pending, and Scheduled Orders This section includes a listing of several types of active, pending, and scheduled orders, including clinic medications orders, diagnostic test orders, procedure orders and consult orders; where the start date of the order is 45 days before the date of the Encounter or 45 days after the date of theEncounter. The data comes from all [facility]. Test Date/Time Test Type Test Details Facility Name Feb 15, 2024 02:34 PM Consult Order COMMUNITY CARE-COLONOSCOPY SCREENING Cons Shot Core Drill [facility] Social History: Smoking Status (Most current) and Tobacco Use (All prior to encounter date) This section includes the most current, and the historical, smoking and tobacco- related health factors from the [place] facility where the Encounter took place. Current Smoking Status This section includes the most current smoking, or tobacco-related health factor, from the [place] facility where the Encounter took place. Date/Time Current Smoking Status Hafsa armstrong May 12, 2023 10:46 AM [place]-TOBACCO NEVER USED [facility] Tobacco Use History This section includes a history of the smoking, or tobacco-related health factors, that were collected on or before the date of the Encounter. The data comes from the [place] facility where the Encounter took place. Date/Time Smoking Status/Tobacco Use Comment Trisha renae Oct 20, 2015 10:30 AM LIFETIME NON-TOBACCO USER [facility] Sep 19, 2009 11:13 AM LIFETIME NON-TOBACCO USER [facility] Advance Directives: All historical and current Section Date Range: From patient's date of to the date document was created. This section includes ALL of a patient's completed or amended [place] Advance and Rescinded Directives. The entries below indicate that a directive exists for the patient, but an actual copy is not included with this document. The data comes from all [place] facilities. Date Advance Directives Provider Source Mar 22, 2018 ADVANCE DIRECTIVE JASWANT DICKINSON [facility] Encounter Notes: All associated encounter notes This section contains the clinical notes associated to the Encounter. Date/Time Encounter Note(s) Provider Source Feb 08, 2024 11:09 AM ADMINISTRATIVE NOT E: LOCAL TITLE: ADMINISTRATIVE NOTE STANDARD TITLE: ADMINISTRATIVE NOTE DATE OF NOTE: FEB 08, 2024@11:09 ENTRY DATE: FEB 08, 2024@11:10:06 AUTHOR: ROSANNE DHALIWAL EXP COSIGNER: URGENCY: STATUS: COMPLETED ADMINISTRATIVE NOTE Has ADDENDA Veterans chiropratic consult is due to and new referral is needed. please enter a new consult for to continue to get services in the community DR YANG SIMMONS TAX ID: [id number] NP [phone] [address] [place] [address] /dheeraj/ ROSANNE DHALIWAL INDUSTRIAL LABORER Signed: 02/08/2024 11:10 Receipt Acknowledged By: 02/08/2024 12:00 /eileen DOSS RN REGISTERED NURSE 02/08/2024 16:51 /dheeraj/ CHARLENE BAEZ NP NURSE PRACTITIONER for EHSAN GREGORY JOSR 02/08/2024 ADDENDUM STATUS: COMPLETED Consult placed and held for provider signature. /dheeraj/ TAMEKA FALES, RN REGISTERED NURSE Signed: 02/08/2024 12:00 ROSANNE DHALIWAL [facility]
--- OUTSIDE RECORDS SUMMARY | 2024-08-18 09:59 | XMS_ITS | Encounter Summary ---
Author Name [place] Organization [place] Address [address] [place] [address] Care Team Providers Care Police [employer] Program Coordinator Name Role Phone EHSAN OVALLES Primary Care [...] PART A December 08, 2013 PART A [id number] BRIGID RAMOS PATIENT MEDICARE (WNR) MEDICARE (M) PART A December 08, 2013 PART A [id number] GARRICK DAMICOBRIGID PATIENT Selected Encounter This section includes the information on record at [place] for the Encounter. Date/Time Encounter Type Encounter Description Reason Pro vider Source Feb 15, 2024 10:13 AM Outpatient Encounter ADMIN PAT ACTIVTIES (MASNONCT) IHE Encounter Template Text not used by [place] Plan of Treatment: Future Appointments (+ 6 [...] 20 appointments. The data comes from all [place] treatment [facility]. Appointment Date/Time Appointment Type Appointme nt Facility Name Feb 23, 2024 09:00 AM AMBULATORY - MEDICINE [place] [facility] Feb 25, 2024 01:00 PM AMBULATORY - REHAB MEDICIN E [place] [facility] Mar 21, 2024 10:00 AM AMBULATORY - MEDICINE [place] C [place] [facility] Mar 24, 2024 01:00 PM AMBULATORY - MEDICINE [place] C [place] [facility] Apr 06, 2024 10:00 AM AMBULATORY - MEDICINE [place] [facility] May 24, 2024 12:00 PM AMBULATORY - NONE [place] [facility] May 31, 2024 11:30 AM AMBULATORY - MEDICINE [place] [facility] Jun 03, 2024 09:50 AM AMBULATORY - MEDICINE [place] [facility] Jun 07, 2024 11:30 AM AMBULATORY - NONE [place] [facility] Jul 27, 2024 02:30 PM AMBULATORY - RE[facility]AB MEDICIN E [place] [facility] Active, Pending, and Scheduled Orders This section includes a listing of several types of active, pending, and scheduled orders, including clinic medications orders, diagnostic test orders, procedure orders and consult orders; where the start date of the order is 45 days before the date of the Encounter or 45 days after the date of theEncounter. The data comes from all [facility]. Test Date/Time Test Type Test Details Facility Name Feb 15, 2024 02:34 PM Consult Order COMMUNITY CARE-COLONOSCOPY SCREENING Cons Woods Laborer's Choice [facility] Social History: Smoking Status (Most current) and Tobacco Use (All prior to encounter date) This section includes the most current, and the historical, smoking and tobacco- related health factors from the [place] facility where the Encounter took place. Current Smoking Status This section includes the most current smoking, or tobacco-related health factor, from the [place] facility where the Encounter took place. Date/Time Current Smoking Status Comment Jose armstrong May 12, 2023 10:46 AM VA-TOBACCO NEVER USED [facility] Tobacco Use History This section includes a history of the smoking, or tobacco-related health factors, that were collected on or before the date of the Encounter. The data comes from the [place] facility where the Encounter took place. Date/Time Smoking Status/Tobacco Use Comment Trisha renae Oct 20, 2015 10:30 AM LIFETIME NON-TOBACCO USER [facility] Sep 19, 2009 11:13 AM LIFETIME NON-TOBACCO USER [facility] Advance Directives: All historical and current Section Date Range: From patient's date of to the date document was created. This section includes ALL of a patient's completed or amended [place] Advance and Rescinded Directives. The entries below indicate that a directive exists for the patient, but an actual copy is not included with this document. The data comes from all [place] facilities. Date Advance Directives Provider Source Mar 22, 2018 ADVANCE DIRECTIVE JASWANT DICKINSON [facility] Encounter Notes: All associated encounter notes This section contains the clinical notes associated to the Encounter. Date/Time Encounter Note(s) Provider Source Feb 15, 2024 10:13 AM ADMINISTRATIVE NOTE: LOCAL TITLE: CCC: SCHEDULING ADMINISTRATION STANDARD TITLE: ADMINISTRATIVE NOTE DATE OF NOTE: FEB 15, 2024@10:13:25 ENTRY DATE: FEB 15, 2024@10:13:25 AUTHOR: ARELI GARRIDO COSIGNER: URGENCY: STATUS: COMPLETED CCC: SCHEDULING ADMINISTRATION Has ADDENDA Patient Demographics Patient Name: COLBY HARTLEY Patient Primary Phone: [phone] Patient Primary [address]: [address] [place] [id number] Patient : 1970 Patient Age: 53 Caller/Recipient Relation to Patient: Self Administrative Administrative Note Reason: Other Administrative Note Comments: Patient is requesting for a call back from [facility] to discuss a Hemorrhoid that has started bleeding. Patient was advised and declined triage and stated they would like to discuss further with [facility]. Please advise/assist. /dheeraj/ ARELI GAVIN Signed: 02/15/2024 10:13 Receipt Acknowledged By: 02/15/2024 14:34 /es/ TAMEKA DOSS RN REGISTERED NURSE 02/15/2024 15:13 /es/ ADEN VALLECILLO LPN [facility] 10 02/15/2024 ADDENDUM STATUS: COMPLETED Spoke with the and stated that he has been using the Preparation-H pads and cream, icing, and doing warm water soaks to treat the hemorrhoid. [place] was advised that he was doing all the correct things at home. [place] asked for a colonoscopy consult to be placed as he still has not had one. Consult placed and held for provider signature. /dheeraj/ TAMEKA DOSS RN REGISTERED NURSE Signed: 02/15/2024 14:36 ARELI GARRIDO [place] CNTRL [facility]
--- OUTSIDE RECORDS SUMMARY | 2024-08-18 09:59 | XMS_ITS ---
Author Name [place] Organization [place] Address [address] [place] [address] Care Team Providers Care Tenderizer Tender Name Role Phone EHSAN OVALLES Primary Care [...] PART A December 08, 2013 PART A [id number] [phone] BRIGID RAMOS PATIENT MEDICARE (WNR) MEDICARE (M) PART A December 08, 2013 PART A [id number] BRIGID RAMOS PATIENT Selected Encounter This section includes the information on record at [place] for the Encounter. Date/Time Encounter Type Encounter Description Reason Pro vider Source Dec 01, 2023 12:00 AM Outpatient Encounter COMMUNITY CARE CONSULT IHE Encounter Template Text not used by [place] Plan of Treatment: Future Appointments (+ 6 [...] 20 appointments. The data comes from all [place] treatment facilities. Appointment Date/Time Appointment Type Appointme nt Facility Name Dec 08, 2023 09:00 AM AMBULATORY - REHAB MEDICIN E [place] January 05, 2024 01:00 PM AMBULATORY - [place] MEDICIN [place] [facility] Jan 15, 2024 09:30 AM AMBULATORY - REHAB MEDICIN E [place] Feb 23, 2024 09:00 AM AMBULATORY - MEDICINE [place] [facility] Feb 25, 2024 01:00 PM AMBULATORY - REHAB MEDICIN E [place] [facility] Mar 21, 2024 10:00 AM AMBULATORY - MEDICINE [place] [facility] Mar 24, 2024 01:00 PM AMBULATORY - MEDICINE [place] [facility] Apr 06, 2024 10:00 AM AMBULATORY - MEDICINE [place] [facility] May 24, 2024 12:00 PM AMBULATORY - NONE [place] [facility] May 31, 2024 11:30 AM AMBULATORY - [facility] [place] [facility] Lab Results: +/- 30 days of the encounter This section includes the Chemistry and Hematology Lab Results on record with [place] for the patient. Radiology Reports and Pathology Reports are provided separately, in subsequent sections. Lab Results This section contains the Chemistry/Hematology Results that were resulted 30 days before or 30 daysafter the date of the Encounter. Date/Time Source Result Type Result - Unit Interpretation Reference Range Comment Nov 09, 2023 08:51 AM [facility] LIPID PANEL FASTING Specimen Type: SERUM No comment entered. Ordering Provider: EHSAN OVALLES Report Released Date/Time: May 12, 2023 10:46 AM Reporting [facility] [address] [facility] [address] Performing Lab: [facility] [address] [facility] [address] CHOLESTEROL 286 mg/dL H TRIGLYCERIDE 111 mg/dL 0-150 LDL calculated 226 mg/dL H 0-129 CHOL/HDL 7.5 HDL CHOLESTEROL 38 mg/dL L 40-60 Nov 09, 2023 08:51 AM [facility] LIVER FUNCTION Specimen Type: SERUM No comment entered. Ordering Provider: EHSAN OVALLES Report Released Date/Time: May 12, 2023 10:46 AM Reporting Lab: [facility] [address] [facility] [address] Performing Lab: [address] [address] PROTEIN,TOTAL 7.2 g/dL 6.0-8.3 ALBUMIN 4.0 g/dL 3.5-5.0 ALKALINE PHOSPHATASE 68 U/L 40-150 AST 21 U/L 5-34 ALT 40 U/L BILIRUBIN, TOTAL 0.6 mg/dL 0.2-1.2 Nov 09, 2023 08:51 AM [facility] BASIC METABOLIC PANEL (fasting) Specimen Type: SERUM No comment entered. Ordering Provider: EHSAN OVALLES Report Released Date/Time: May 12, 2023 10:46 AM Reporting Lab: [address] [address] Performing Lab: [address] [address] UREA NITROGEN 25 mg/dL 7-25 GLUCOSE 97 [...] and tobacco- related health factors from the [place] facility where the Encounter took place. Current Smoking Status This section includes the most current smoking, or tobacco-related health factor, from the [place] facility where the Encounter took place. Date/Time Current Smoking Status Comment Jose armstrong May 12, 2023 10:46 AM VA-TOBACCO NEVER USED [facility] Tobacco Use History This section includes a history of the smoking, or tobacco-related health factors, that were collected on or before the date of the Encounter. The data comes from the [place] facility where the Encounter took place. Date/Time Smoking Status/Tobacco Use Comment F acility Oct 20, 2015 10:30 AM LIFETIME NON-TOBACCO USER [facility] Sep 19, 2009 11:13 AM LIFETIME NON-TOBACCO USER [facility] Advance Directives: All historical and current Section Date Range: From patient's date of to the date document was created. This section includes ALL of a patient's completed or amended [place] Advance and Rescinded Directives. The entries below indicate that a directive exists for the patient, but an actual copy is not included with this document. The data comes from all [place] facilities. Date Advance Directives Provider Source Mar 22, 2018 ADVANCE DIRECTIVE JASWANT DICKINSON [facility] Encounter Notes: All associated encounter notes This section contains the clinical notes associated to the Encounter. Date/Time Encounter Note(s) Provider Source Dec 01, 2023 12:00 AM NONVA CONSULT: LOCAL TITLE: COMMUNITY CARE-CONSULT RESULT NOTE STANDARD TITLE: NONVA CONSULT DATE OF NOTE: DEC 01, 2023 ENTRY DATE: DECEMBER 11, 2023@10:49:18 AUTHOR: REGINALDO WATTS EXP COSIGNER: URGENCY: STATUS: COMPLETED VistA Imaging - Scanned Document SCANNED DOCUMENT SIGNATURE NOT REQUIRED Electronically Filed: 12/11/2023 by: REGINALDO VILLATORO [facility]
--- OUTSIDE RECORDS SUMMARY | 2024-08-18 09:59 | XMS_ITS | Encounter Summary ---
Author Name [facility] [place] Organization [facility] [place] [place] Address [address] [place] [address] Care Team Providers Care Linemarker Name Role Phone EHSAN OVALLES Primary Care [...] PART A December 08, 2013 PART A [id number] BRIGID RAMOS PATIENT MEDICARE (WNR) MEDICARE (M) PART A December 08, 2013 PART A [id number] [phone] BRIGID RAMOS PATIENT Selected Encounter This section includes the information on record at [place] for the Encounter. Date/Time Encounter Type Encounter Description Reason Pro vider Source Oct 30, 2023 12:00 PM Outpatient Encounter COMMUNITY CARE CONSULT IHE Encounter Template Text not used by [place] Plan of Treatment: Future Appointments (+ 6 [...] 20 appointments. The data comes from all [place] treatment facilities. Appointment Date/Time Appointment Type Appointme nt Facility Name Nov 05, 2023 01:00 PM [facility] [place] [facility] Nov 11, 2023 10:00 AM [facility] [place] [facility] Nov 24, 2023 09:30 AM [facility] [place] [facility] Nov 26, 2023 10:30 AM AMBULATORY - [place] [facility]IC[facility] [place] Dec 01, 2023 09:45 AM [facility] [place] [facility] Dec 01, 2023 03:30 PM AMBULATORY - RE[facility] MEDICIN E [place] Dec 08, 2023 09:00 AM AMBULATORY - REHAB MEDICIN E [place] January 05, 2024 01:00 PM AMBULAT[facility] [place] [facility] Jan 15, 2024 09:30 AM AMBULATORY - REHAB MEDICIN E [place] Feb 23, 2024 09:00 AM [facility]INE [facility] [place] [facility] Feb 25, 2024 01:00 PM [facility] [place] [facility] Mar 21, 2024 10:00 AM [facility]INE [facility] [place] [facility] Mar 24, 2024 01:00 PM [facility]ICINE [facility] [place] [facility] Apr 06, 2024 10:00 AM [facility]ORY - MEDICINE [facility] [place] [facility] Lab Results: +/- 30 days of the encounter This section includes the Chemistry and Hematology Lab Results on record with [place] for the patient. Radiology Reports and Pathology Reports are provided separately, in subsequent sections. Lab Results This section contains the Chemistry/Hematology Results that were resulted 30 days before or 30 daysafter the date of the Encounter. Date/Time Source Result Type Result - Unit Interpretation Reference Range Comment Nov 09, 2023 08:51 [facility] [place] [facility] LIPID PANEL FASTING Specimen Type: SERUM No comment entered. Ordering Provider: EHSAN OVALLES Report Released Date/Time: May 12, 2023 10:46 AM [facility] [address] [address] Performing Lab: [facility] [address] [facility] [address] CHOLESTEROL 286 mg/dL H TRIGLYCERIDE 111 mg/dL 0-150 LDL calculated 226 mg/dL H 0-129 CHOL/HDL 7.5 HDL CHOLESTEROL 38 mg/dL L 40-60 Nov 09, 2023 08:51 AM [facility] LIVER FUNCTION Specimen Type: SERUM No comment entered. Ordering Provider: EHSAN OVALLES Report Released Date/Time: May 12, 2023 10:46 AM Reporting Lab: [facility] [address] [facility] [address] Performing Lab: [address] [address] PROTEIN,TOTAL 7.2 g/dL 6.0-8.3 ALBUMIN 4.0 g/dL 3.5-5.0 ALKALINE PHOSPHATASE 68 U/L 40-150 AST 21 U/L 5-34 ALT 40 U/L BILIRUBIN, TOTAL 0.6 mg/dL 0.2-1.2 Nov 09, 2023 08:51 AM [facility] BASIC METABOLIC PANEL (fasting) Specimen Type: SERUM No comment entered. Ordering Provider: HESAN OVALLES Report Released Date/Time: May 12, 2023 10:46 AM Reporting Lab: [address] [address] Performing Lab: [address] [address] UREA NITROGEN 25 mg/dL 7-25 GLUCOSE 97 [...] and tobacco- related health factors from the [place] facility where the Encounter took place. Current Smoking Status This section includes the most current smoking, or tobacco-related health factor, from the [place] facility where the Encounter took place. Date/Time Current Smoking Status Comment Jose ity May 12, 2023 10:46 AM VA-TOBACCO NEVER USED [facility] Tobacco Use History This section includes a history of the smoking, or tobacco-related health factors, that were collected on or before the date of the Encounter. The data comes from the [place] facility where the Encounter took place. Date/Time Smoking Status/Tobacco Use Comment F acility Oct 20, 2015 10:30 AM LIFETIME NON-TOBACCO USER [facility] Sep 19, 2009 11:13 AM LIFETIME NON-TOBACCO USER [facility] Advance Directives: All historical and current Section Date Range: From patient's date of to the date document was created. This section includes ALL of a patient's completed or amended [place] Advance and Rescinded Directives. The entries below indicate that a directive exists for the patient, but an actual copy is not included with this document. The data comes from all [place] facilities. Date Advance Directives Provider Source Mar 22, 2018 ADVANCE DIRECTIVE JASWANT DICKINSON [facility] Radiology Reports: +/- 30 days of [...] the Encounter. The data comes from all [place] treatment facilities. Date/Time Radiology Report Provider Source Sep 30, 2023 10:26 AM FLUOROSCOPIC [place] NCE OF NEEDLE/SPINE: ODILIACOLBY [id number] -1970 M [facility] Date: SEP 30, 2023@10:26 Req Phys: YAIR FALCON Loc: [facility]/NO/MED REHAB/SPINE INJ (Re Img Loc: [facility]/BUILDING 1 Service: Unknown (Case 100 COMPLETE) FLUOROSCOPIC GUIDANCE OF NEEDLE/S(RAD Detailed) CPT:86688 Reason for Study: transforaminal epidural steroid injection Clinical History: Report Status: Verified Date Reported: SEP 30, 2023 Date Verified: SEP 30, 2023 Cutting And Printing Machine Operator E-Sig:/ES/GREG OLIVIER JR Report: Study: Pain injection of the lumbar spine. Findings: Fluoroscopic guidance was provided to Pain Management for interventional pain injection. No dictation provided for this study. Images captured for documentation only. Total fluoroscopy time used was 39.9 seconds. Total cumulative dose is 33.91 mGy. Impression: Fluoroscopic guidance for interventional pain injection. Primary Diagnostic Code: No immediate attention required Primary Interpreting Staff: GREG OLIVIER JR, Radiologist ([place]) /GREG GAITAN JR [facility] Encounter Notes: All associated encounter notes This section contains the clinical notes associated to the Encounter. Date/Time Encounter Note(s) Provider Source Oct 30, 2023 12:00 PM NONVA CONSULT: LOCAL TITLE: COMMUNITY CARE-CONSULT RESULT NOTE STANDARD TITLE: NONVA CONSULT DATE OF NOTE: OCT 30, 2023@12:00 ENTRY DATE: DECEMBER 22, 2023@11:12:04 AUTHOR: GUY ARRINGTON EXP COSIGNER: URGENCY: STATUS: COMPLETED VistA Imaging - Scanned Document [facility]-OFFICE NOTES 10/29-11/19 SCANNED DOCUMENT SIGNATURE NOT REQUIRED Electronically Filed: 12/22/2023 by: GUY ARRINGTON ENGINEERING RESEARCH MANAGER GUY ARRINGTON [facility]
--- OUTSIDE RECORDS SUMMARY | 2024-08-18 09:59 | XMS_ITS | Encounter Summary ---
Author Name [facility] [place] [facility] [place] [facility] [place] Address [address] [place] [address] Care Team Providers Care Instrument Repair Supervisor Name Role Phone EHSAN OVALLES Primary Care [...] PART A December 08, 2013 PART A [id number] BRIGID RAMOS PATIENT MEDICARE (WNR) MEDICARE (M) PART A December 08, 2013 PART A [id number] BRIGID RAMOS PATIENT Selected Encounter This section includes the information on record at [place] for the Encounter. Date/Time Encounter Type Encounter Description Reason Pro vider Source Dec 08, 2023 12:00 AM Outpatient Encounter COMMUNITY CARE CONSULT IHE Encounter Template Text not used by [place] Plan of Treatment: Future Appointments (+ 6 [...] 20 appointments. The data comes from all [place] treatment facilities. Appointment Date/Time Appointment Type Appointme nt Facility Name January 05, 2024 01:00 PM AMBULAT[facility] [place] [facility] Jan 15, 2024 09:30 AM AMBULATORY - RE[facility]AB MEDICIN E [place] Feb 23, 2024 09:00 AM [facility]UL[facility]ORY [facility]IC[facility] [place] [facility] Feb 25, 2024 01:00 PM AMBULATORY - [facility] [place] [facility] Mar 21, 2024 10:00 AM AM[facility]UL[facility]ORY [facility]INE [facility] [place] [facility] Mar 24, 2024 01:00 PM [facility]INE [facility] [place] [facility] Apr 06, 2024 10:00 AM [facility]UL[facility]INE [facility] [place] [facility] May 24, 2024 12:00 PM AMBULATORY - NONE [facility] [place] [facility] May 31, 2024 11:30 AM [facility]INE [facility] [place] [facility] Jun 03, 2024 09:50 AM [facility] [place] [facility] Jun 07, 2024 11:30 AM AMBULATORY - NONE [facility] [place] [facility] Lab Results: +/- 30 days of the encounter This section includes the Chemistry and Hematology Lab Results on record with [place] for the patient. Radiology Reports and Pathology Reports are provided separately, in subsequent sections. Lab Results This section contains the Chemistry/Hematology Results that were resulted 30 days before or 30 daysafter the date of the Encounter. Date/Time Source Result Type Result - Unit Interpretation Reference Range Comment Nov 09, 2023 08:51 AM [facility] LIPID PANEL FASTING Specimen Type: SERUM No comment entered. Ordering Provider: EHSAN OVALLES Report Released Date/Time: May 12, 2023 10:46 AM Reporting [facility] [address] [address] Performing [facility]: [facility] [address] [facility] [address] CHOLESTEROL 286 mg/dL H TRIGLYCERIDE 111 mg/dL 0-150 LDL calculated 226 mg/dL H 0-129 CHOL/HDL 7.5 HDL CHOLESTEROL 38 mg/dL L 40-60 Nov 09, 2023 08:51 AM [facility] LIVER FUNCTION Specimen Type: SERUM No comment entered. Ordering Provider: EHSAN OVALLES Report Released Date/Time: May 12, 2023 10:46 AM Reporting Lab: [facility] [address] [facility] [address] Performing Lab: [address] [address] PROTEIN,TOTAL 7.2 g/dL 6.0-8.3 ALBUMIN 4.0 g/dL 3.5-5.0 ALKALINE PHOSPHATASE 68 U/L 40-150 AST 21 U/L 5-34 ALT 40 U/L BILIRUBIN, TOTAL 0.6 mg/dL 0.2-1.2 Nov 09, 2023 08:51 AM [facility] BASIC METABOLIC PANEL (fasting) Specimen Type: SERUM No comment entered. Ordering Provider: EHSAN OVALLES Report Released Date/Time: May 12, 2023 10:46 AM Reporting Lab: [address] [address] Performing Lab: [address] [address] UREA NITROGEN 25 mg/dL 7-25 GLUCOSE 97 [...] and tobacco- related health factors from the [place] facility where the Encounter took place. Current Smoking Status This section includes the most current smoking, or tobacco-related health factor, from the [place] facility where the Encounter took place. Date/Time Current Smoking Status Comment Jose armstrong May 12, 2023 10:46 AM VA-TOBACCO NEVER USED [facility] Tobacco Use History This section includes a history of the smoking, or tobacco-related health factors, that were collected on or before the date of the Encounter. The data comes from the [place] facility where the Encounter took place. Date/Time Smoking Status/Tobacco Use Comment F acility Oct 20, 2015 10:30 AM LIFETIME NON-TOBACCO USER [facility] Sep 19, 2009 11:13 AM LIFETIME NON-TOBACCO USER [facility] Advance Directives: All historical and current Section Date Range: From patient's date of to the date document was created. This section includes ALL of a patient's completed or amended [place] Advance and Rescinded Directives. The entries below indicate that a directive exists for the patient, but an actual copy is not included with this document. The data comes from all [place] facilities. Date Advance Directives Provider Source Mar 22, 2018 ADVANCE DIRECTIVE JASWANT DICKINSON [facility] Encounter Notes: All associated encounter notes This section contains the clinical notes associated to the Encounter. Date/Time Encounter Note(s) Provider Source Dec 08, 2023 12:00 AM NONVA CONSULT: LOCAL TITLE: COMMUNITY CARE-CONSULT RESULT NOTE STANDARD TITLE: NONVA CONSULT DATE OF NOTE: DEC 08, 2023 ENTRY DATE: FEB 25, 2024@11:21:44 AUTHOR: JERONIMO LEVI EXP COSIGNER: URGENCY: STATUS: COMPLETED VistA Imaging - Scanned Document SCANNED DOCUMENT SIGNATURE NOT REQUIRED Electronically Filed: 02/25/2024 by: JERONIMO JAMES [facility]
--- OUTSIDE RECORDS SUMMARY | 2024-08-18 09:59 | XMS_ITS ---
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 Date/Time Encounter Type Encounter Description Reason Provider Source January 05, 2024 01:00 PM OFFICE O/P EST MOD 30 MIN PM&RS PHYSICIAN ICD-10-CM M25.562 Pain in left knee АНДРЕЙ HUSSEIN Encounter Template Text not used by [place] Assessments - Encounter Diagnoses This section includes the primary and secondary diagnoses documented for the Encounter. Date/Time Primary/Secondary Diagnosis Diagnosis Name Provider Source Jan 28, 2024 12:54 PM PRIMARY Pain in left knee SHARMILA HUSSEIN [facility] [place] [place] [facility] Jan 28, 2024 12:54 PM SECONDARY Other obesity SHARMILA HUSSEIN [facility] Plan of Treatment: Future Appointments (+ 6 months) and Future Tests (+/- 45 days) The Plan of Treatment section includes future care activities for the [facility] This section includes future appointments and future orders which are active, pending or scheduled. Future Appointments This section includes appointments that were scheduled to occur 6 months from the date of the Encounter, up to a maximum of 20 appointments. The data comes from all [facility]. Appointment Date/Time Appointment Type Appointme nt Facility Name Jan 15, 2024 09:30 AM AMBULATORY - REHAB MEDICIN E [facility] Feb 23, 2024 09:00 AM AMBULATORY - MEDICINE [place] [facility] Feb 25, 2024 01:00 PM AMBULATORY - REHAB MEDICIN E [place] [facility] [place] [facility] Mar 21, 2024 10:00 AM AMBULATORY - MEDICINE [place] C [place] [facility] Mar 24, 2024 01:00 PM AMBULATORY - MEDICINE [place] [facility] Apr 06, 2024 10:00 AM AMBULATORY - MEDICINE [facility] [place] [facility] May 24, 2024 12:00 PM AMBULATORY - NONE [place] [facility] May 31, 2024 11:30 AM AMBULATORY - MEDICINE [facility] [place] [facility] Jun 03, 2024 09:50 AM AMBULATORY - MEDICINE [facility] [place] [facility] Jun 07, 2024 11:30 AM AMBULATORY - NONE [facility] Active, Pending, and Scheduled Orders This section includes a listing of several types of active, pending, and scheduled orders, including clinic medications orders, diagnostic test orders, procedure orders and consult orders; where the start date of the order is 45 days before the date of the Encounter or 45 days after the date of theEncounter. The data comes from all [facility]. Test Date/Time Test Type Test Details Facility Name Feb 15, 2024 02:34 PM Consult Order COMMUNITY CARE-COLONOSCOPY SCREENING Cons [employer] [facility] Vital Signs: All taken on the encounter date This section contains inpatient and outpatient Vital Signs collected on the date of the Encounter. Date/Time Temperature Pulse Blood Pressure Respiratory Rate SP02 Pain Height Weight Body Mass Index Source January 05, 2024 01:07 PM 73 140/88 24 95 8 317 43 [facility] Social History: Smoking Status (Most current) and Tobacco Use (All prior to encounter date) This section includes the most current, and the historical, smoking and tobacco- related health factors from the [place] facility where the Encounter took place. Current Smoking Status This section includes the most current smoking, or tobacco-related health factor, from the [place] facility where the Encounter took place. Date/Time Current Smoking Status Comment Facil ity May 12, 2023 10:46 AM VA-TOBACCO NEVER USED [facility] Tobacco Use History This section includes a history of the smoking, or tobacco-related health factors, that were collected on or before the date of the Encounter. The data comes from the [place] facility where the Encounter took place. Date/Time Smoking Status/Tobacco Use Comment F acility Oct 20, 2015 10:30 AM LIFETIME NON-TOBACCO USER [facility] Sep 19, 2009 11:13 AM LIFETIME NON-TOBACCO USER [facility] Advance Directives: All historical and current Section Date Range: From patient's date of to the date document was created. This section includes ALL of a patient's completed or amended [place] Advance and Rescinded Directives. The entries below indicate that a directive exists for the patient, but an actual copy is not included with this document. The data comes from all [place] facilities. Date Advance Directives Provider Source Mar 22, 2018 ADVANCE DIRECTIVE JASWANT DICKINSON [facility] Encounter Notes: All associated encounter notes This section contains the clinical notes associated to the Encounter. Date/Time Encounter Note(s) Provider Source January 05, 2024 01:42 PM PHYSICAL MEDICINE REHAB NOTE: LOCAL TITLE: PM&R BACK/JOINT PROCEDURE NOTE STANDARD TITLE: PHYSICAL MEDICINE REHAB NOTE DATE OF NOTE: JANUARY 05, 2024@13:42 ENTRY DATE: JANUARY 05, 2024@13:42:57 AUTHOR: АНДРЕЙ HUSSEIN COSIGNER: URGENCY: STATUS: COMPLETED PROCEDURE: Left intra-articular knee injection with cortisone. INDICATION: Knee pain. ANESTHESIA: None. INFORMED CONSENT: Obtained verbally, and through IMED. presents today with significant improvement in pain. Particular discomfort in the left knee. He continues to feel a catching sensation in the posterior lateral corner. He additionally is having some tightness radiating down the Achilles region as well as the origin of the gastroc. Continues tightness in the hamstring as well. He is doing his level best to work strengthening and stretching. He continues to be diligent with weight program. He is losing weight having primarily animal protein. He feels more energetic. Sleep is reasonable. We tried to do MRI but unfortunately was unable to tolerate this due to sleep apnea and claustrophobia. Tenderness over the biceps femoris In flexion he has discomfort behind the knee. Flexion at the hip with the knee only partially flexed also aggravates symptoms. Internal rotation aggravates posterior lateral knee pain. Tenderness over the origin of the gastroc as well as at the Achilles. He has full range of motion about the foot with a relatively high arch. Small bunion noted in the left foot. The steps of the procedure, potential risks and benefits of the intra-articular knee injection, as well as alternatives were discussed with patient. The potential risks include, but not limited to: local injection reaction, pain, bruising/hematoma, nerve damage, temporary increase in blood sugar (if applicable), adverse side effects to cortisone or lidocaine including rash/itching, infection, and swelling of the knee. Patient agreed to proceed with the injection. TIME OUT NOTE TIME:December@13:30 Tresckow correctly stated: [X]Full name: COLBY HARTLEY ANGY [X]Last 4 of #: [id number] [X]: Apr PROVIDER NAME: Андрей Hussein PA-c STAFF NAME: Anum Mahajan LPN Lot #: [id number] Exp: Jun 2025 The procedure was performed with the patient in the seated position. Anteromedial approach the needle was withdrawn and light compression was applied with a 2x2 gauze until bleeding stopped. A band-aid was applied. No complications. No blood loss. The patient tolerated the procedure well without any immediate adverse side effects. Patient was instructed on the use of ice prn post injection pain/swelling. The patient was able to ambulate out of the office today, and was discharged home with instructions to monitor for any adverse reactions/side effects, and to contact me with any issues. Pre-procedure pain level: 6/10 Post-procedure pain level: 2/10 Assessment and plan: will proceed with physical therapy. Received intra-articular injection today. He tolerated injection well. Follow-up will be arranged in 1 month. If no improvement is noted we will proceed with left S1 and left L3-4 TFE. He continues to find relief with the [place]. We discussed possible MRI scan but if he only has partial relief with this he may wish to consider arthroscopic evaluation. Medication Reconciliation: Outpatient: Has the patient been taking medications as documented in the EMLR? YES: The patient has been taking medications as documented in the EMLR. Essential Medication List for Review used to complete this medication reconciliation. INCLUDED IN THIS LIST: Alphabetical list of active outpatient prescriptions dispensed from this OR (local) and dispensed from another OR or [facility] facility (remote) as well as inpatient [...] whether with a VA or non-VA provider. Medication List: JLV Link Data on this list may not be complete. Please check JLV. Allergies/ADRs (Tool #5) FACILITY ALLERGY/ADR -------- CLNCL/HLTH MADDY REPT EFF [id number] [facility] [place] [facility] [place] [facility] [place] [facility] Med. Reconciliation (Tool #1) INCLUDED IN THIS LIST: Alphabetical list of active outpatient prescriptions dispensed from this OR (local) and dispensed from another OR or [facility] facility (remote) as well as inpatient orders (local pending and active), local clinic medications, locally documented non-VA medications, and local prescriptions that have or been discontinued in the past 90 days. Non-VA Meds Last Documented On: Data not found NOTE The display of VA prescriptions dispensed from another OR or [facility] facility (remote) is limited to active outpatient prescription entries matched to National Drug File at the originating site and may not include some items such as investigational drugs, compounds, etc. NOT INCLUDED IN THIS LIST: Medications self-entered by the patient into personal health records (i.e. Simparel) are NOT included in this list. Non-VA medications documented outside this OR, remote inpatient orders (regardless of status) and remote clinic medications are NOT included in this list. The patient and provider must always discuss medications the patient is taking, regardless of where the medication was dispensed or obtained. OUTPT ACETAMINOPHEN 500MG TAB (Status = Active) TAKE TWO TABLETS BY MOUTH THREE TIMES DAILY NEEDED FOR PAIN Rx# [id number] Last Released: 12/23/23 Qty/Days Supply: 20030 Rx Expiration Date: 03/11/24 Refills Remainin Indication: FOR PAIN OUTPT ALBUTEROL 90MCG (CFC-F) 200D ORAL INHL (Status = Active) INHALE 2 PUFFS BY MOUTH FOUR TIMES DAILY NEEDED FOR SHORTNESS OF BREATH Rx# [id number] Last Released: 12/23/23 Qty/Days Supply: Rx Expiration Date: 05/12/24 Refills Remainin OUTPT BUPRENORPHINE 150MCG BUCCAL FILM (Status = Active) PLACE ONE FILM BETWEEN CHEEK AND GUM UNTIL DISSOLVED THREE TIMES A DAY FOR PAIN Rx# [id number] Last Released: 12/29/23 Qty/Days Supply: 90/30 Rx Expiration Date: 06/24/24 Refills Remainin Indication: FOR PAIN OUTPT BUPRENORPHINE 300MCG BUCCAL FILM (Status = Discontinued) PLACE ONE FILM BETWEEN CHEEK AND GUM UNTIL DISSOLVED EVERY 12 HOURS FOR PAIN Rx# [id number] Last Released: 10/13/23 Qty/Days Supply: 6030 Rx Expiration Date: 03/10/24 Refills Remainin Indication: FOR PAIN OUTPT CHOLECALCIF 50MCG (D3-2,000UNIT) TAB (Status = Active) TAKE TWO TABLETS BY MOUTH EVERY DAY FOR VITAMIN SUPPLEMENTATION Rx# [id number] Last Released: 12/23/23 Qty/Days Supply: 200/ Rx Expiration Date: 05/12/24 Refills Remainin OUTPT CLOMIPHENE CITRATE 50MG TAB (Status = Active) TAKE ONE-HALF TABLET BY MOUTH ONCE DAILY Rx# [id number] Last Released: 12/23/23 Qty/Days Supply: 30 Rx Expiration Date: 11/03/24 Refills Remainin OUTPT DICLOFENAC NA 1% TOP GEL (Status = Active) APPLY 4 GRAMS TOPICALLY FOUR TIMES A DAY FOR OSTEOARTHRITIS - USE DOSING CARD PROVIDED IN BOX Rx# [id number] Last Released: 03/11/23 Qty/Days Supply: 300/30 Rx Expiration Date: 03/11/24 Refills Remainin Indication: FOR JOINT PAIN OUTPT FLUTICAS 500/SALMETEROL 50 INHL DISK 60 (Status = Active) INHALE 1 PUFF BY MOUTH TWICE DAILY - RINSE MOUTH AFTER USE Rx# [id number] Last Released: 12/23/23 Qty/Days Supply: 3 Rx Expiration Date: 05/12/24 Refills Remainin OUTPT LIDOCAINE 5% OINT (Status = Active) APPLY THIN LAYER TOPICALLY TWICE DAILY TO THREE TIMES A DAY NEEDED FOR MINOR SKIN WOUND PAIN Rx# [id number] Last Released: 08/18/23 Qty/Days Supply: 105/30 Rx Expiration Date: 08/14/24 Refills Remainin Indication: FOR MINOR SKIN WOUND PAIN OUTPT LOSARTAN 100MG TAB (Status = Active/Suspended) TAKE ONE TABLET BY MOUTH ONCE DAILY FOR BLOOD PRESSURE/HEART Rx# [id number] Last Released: 12/16/23 Qty/Days Supply: Rx Expiration Date: 05/12/24 Refills Remainin OUTPT MONTELUKAST NA 10MG TAB (Status = Active/Suspended) TAKE ONE TABLET BY MOUTH AT BEDTIME FOR CONTROLLER MEDICATION FOR ASTHMA Rx# [id number] Last Released: 10/30/23 Qty/Days Supply: 90 Rx Expiration Date: 10/29/24 Refills Remainin Indication: FOR CONTROLLER MEDICATION FOR ASTHMA OUTPT NAPROXEN 500MG TAB (Status = Discontinued) TAKE ONE TABLET BY MOUTH TWICE DAILY TAKE WITH FOOD Rx# [id number] Last Released: 10/10/23 Qty/Days Supply: 60 Rx Expiration Date: 08/13/24 Refills Remainin Indication: FOR INFLAMMATION OUTPT NAPROXEN 500MG TAB (Status = Active) TAKE ONE TABLET BY MOUTH TWICE DAILY TAKE WITH FOOD Rx# [id number] Last Released: 12/23/23 Qty/Days Supply: 60 Rx Expiration Date: 11/05/24 Refills Remainin Indication: FOR INFLAMMATION OUTPT OMEPRAZOLE 20MG EC CAP (Status = Active) TAKE ONE CAPSULE BY MOUTH TWICE DAILY Rx# [id number] Last Released: 12/23/23 Qty/Days Supply: 180 Rx Expiration Date: 05/12/24 Refills Remainin OUTPT OXYCODONE HCL 5MG TAB NOT SA (Status = ) TAKE TWO TABLETS BY MOUTH TWICE DAILY NEEDED FOR PAIN NOT FOR USE EVERY DAY (NEXT FILL 10/08/23) Rx# [id number] Last Released: 09/10/23 Qty/Days Supply: Rx Expiration Date: 10/08/23 Refills Remainin Indication: FOR PAIN OUTPT PRAZOSIN HCL 1MG CAP (Status = ) TAKE THREE CAPSULES BY MOUTH AT BEDTIME TAKE DOSE AT 11 PM. Rx# [id number] Last Released: 12/08/22 Qty/Days Supply: Rx Expiration Date: 12/03/23 Refills Remainin Indication: OFF LABEL FOR NIGHTMARES OUTPT PREGABALIN 100MG ORAL CAP (Status = Discontinued) TAKE ONE CAPSULE BY MOUTH TWICE DAILY FOR PAIN Rx# [id number] Last Released: 09/10/23 Qty/Days Supply: Rx Expiration Date: 03/10/24 Refills Remainin Indication: FOR PAIN OUTPT PREGABALIN 100MG ORAL CAP (Status = Active) TAKE ONE CAPSULE BY MOUTH TWICE DAILY FOR PAIN Rx# [id number] Last Released: 12/24/23 Qty/Days Supply: Rx Expiration Date: 05/26/24 Refills Remainin Indication: FOR PAIN OUTPT PREGABALIN 75MG ORAL CAP (Status = Discontinued) TAKE ONE CAPSULE BY MOUTH TWICE DAILY FOR PAIN Rx# [id number] Last Released: 11/05/23 Qty/Days Supply: Rx Expiration Date: 05/07/24 Refills Remainin Indication: FOR PAIN OUTPT SILDENAFIL CITRATE 100MG TAB (Status = ) TAKE ONE TABLET BY MOUTH ONCE DAILY NEEDED TAKE 1 HOUR PRIOR TO SEXUAL ACTIVITY Rx# [id number] Last Released: 04/17/23 Qty/Days Supply: 02/06 Rx Expiration Date: 11/14/23 Refills Remainin Indication: FOR ERECTILE DYSFUNCTION OUTPT TESTOSTERONE CYP 200MG/ML 1ML IN OIL (Status = Active) INJECT 0.5ML (100MG) INTRAMUSCULARLY ONCE A WEEK VIALS ARE ONLY TO BE USED ONE TIME Rx# [id number] Last Released: 10/19/23 Qty/Days Supply: 12/05 Rx Expiration Date: 04/16/24 Refills Remainin SUPPLIES PHARMACY TERMS AND POSSIBLE PATIENT ACTIONS INPT = OR inpatient order IV = OR intravenous medication OUTPT = OR outpatient prescription PHARMACY POSSIBLE PATIENT TERMS EXPLANATION ACTIONS -------- ------ ACTIVE A prescription that can be If you have refills, filled at the local [place] pharmacy. you may request a refill of this prescription from your VA pharmacy. CLINIC A medication you received during If you have questions a visit to a OR clinic or about this medication emergency department. contact your VA healthcare team. DISCONTINUED A prescription your provider has Contact your VA stopped. It is no longer healthcare team if you available to be sent to you or need more of this picked up at the OR pharmacy medication. window. A prescription which is too old Contact your VA to fill. This does not refer to healthcare team if you the expiration date of the need more of this medication in the container. medication. NON-VA A medication that came from If this medication someplace other than a VA information is pharmacy. This may be a incorrect or out of prescription from either the VA date, please tell your or non VA providers that was VA healthcare team. filled outside the VA. Or, it may be an [id number] (OTC), herbal, dietary supplements or sample medication. ON HOLD An active prescription that will Contact your VA not be filled until pharmacy pharmacy when you need resolves the issue. more of this medication. PARKED An active prescription that will Contact your VA not be filled until the patient pharmacy when you need requests it. this medication. PENDING This prescription order has been If you have been sent to the pharmacy for review instructed to start and is not ready yet. this medication now, contact your VA pharmacy. SUSPENDED An active prescription that is Contact your OR not scheduled to be filled yet. pharmacy if you need You should receive it before this medication now. you run out. /es/ АНДРЕЙ HUSSEIN [facility] Signed: 01/05/2024 13:53 АНДРЕЙ HUSSEIN CNTRL [facility]
--- OUTSIDE RECORDS SUMMARY | 2024-08-18 09:59 | XMS_ITS ---
Author Name [place] Organization [place] Address [address] [place] [address] Care Team Providers Care Insurance Verification Representative Name Role Phone EHSAN OVALLES Primary Care [...] PART A December 08, 2013 PART A [id number] KONRADDENTONMartin BRIGID DAMICO PATIENT MEDICARE (WNR) MEDICARE (M) PART A December 08, 2013 PART A [id number] [phone] KONRADBRIGID KRAMER PATIENT Selected Encounter This section includes the information on record at [place] for the Encounter. Date/Time Encounter Type Encounter Description Reason Provider Source Mar 01, 2024 06:19 AM Outpatient Encounter PM&RS PHYSICIAN HILDA BLAKE Encounter Template Text not used by [place] Plan of Treatment: Future Appointments (+ 6 [...] 20 appointments. The data comes from all [facility]. Appointment Date/Time Appointment Type Appointme nt Facility Name Mar 21, 2024 10:00 AM AMBULATORY - [facility]ICINE [facility] Mar 24, 2024 01:00 PM [facility]UL[facility] Apr 06, 2024 10:00 AM AMBULATORY - MEDICINE [facility] May 24, 2024 12:00 PM [facility] May 31, 2024 11:30 AM AMBULATORY - MEDICINE [facility] Jun 03, 2024 09:50 AM AMBULATORY - MEDICINE [place] [facility] Jun 07, 2024 11:30 AM [facility] Jul 27, 2024 02:30 PM AMBULAT[facility] - [facility] Aug 30, 2024 11:00 AM AMBULATORY - MEDICINE [facility] Active, Pending, and Scheduled Orders This section includes a listing of several types of active, pending, and scheduled orders, including clinic medications orders, diagnostic test orders, procedure orders and consult orders; where the start date of the order is 45 days before the date of the Encounter or 45 days after the date of theEncounter. The data comes from all [facility]. 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 Social History: Smoking Status (Most current) and Tobacco Use (All prior to encounter date) This section includes the most current, and the historical, smoking and tobacco- related health factors from the [place] facility where the Encounter took place. Current Smoking Status This section includes the most current smoking, or tobacco-related health factor, from the [place] facility where the Encounter took place. Date/Time Current Smoking Status Comment Jose armstrong May 12, 2023 10:46 AM [place]-TOBACCO NEVER USED [facility] Tobacco Use History This section includes a history of the smoking, or tobacco-related health factors, that were collected on or before the date of the Encounter. The data comes from the [place] facility where the Encounter took place. Date/Time Smoking Status/Tobacco Use Comment F acility Oct 20, 2015 10:30 AM LIFETIME NON-TOBACCO USER [facility] Sep 19, 2009 11:13 AM LIFETIME NON-TOBACCO USER [facility] Advance Directives: All historical and current Section Date Range: From patient's date of to the date document was created. This section includes ALL of a patient's completed or amended [place] Advance and Rescinded Directives. The entries below indicate that a directive exists for the patient, but an actual copy is not included with this document. The data comes from all [place] facilities. Date Advance Directives Provider Source Mar 22, 2018 ADVANCE DIRECTIVE JASWANT DICKINSON [facility] Encounter Notes: All associated encounter notes This section contains the clinical notes associated to the Encounter. Date/Time Encounter Note(s) Provider Source Mar 01, 2024 06:19 AM SECURE MESSAGING: LOCAL TITLE: BACK CLINIC SECURE MESSAGING STANDARD TITLE: SECURE MESSAGING DATE OF NOTE: MAR 01, 2024@06:19 ENTRY DATE: MAR 01, 2024@07:19:07 AUTHOR: HILDA BLAKE EXP COSIGNER: URGENCY: STATUS: COMPLETED ------Original Message -------- Sent: 02/29/2024 02:25 PM ET From: DONELL HARTLEY To: [facility]! Subject: General:Knee pain Ever since last when Dr Asael cuenca handled my leg when it brought me to tears and he refered me to an orthopedist for a possible torn meniscus the pain has been unbearable and my current medication does not touch it. Please Advise. Donell Becerril ------Original Message -------- Sent: 03/01/2024 07:19 AM ET From: HILDA BLAKE To: DONELL HARTLEY Subject: General:Knee pain I'm sorry to hear your in pain. It looks like the community care consult was approved and they are waiting for [facility] to call you to schedule, if you want to speed up the process you can call them and try to schedule. I have pasted the info below: [facility] [id number] [place] [address] Hilda Blake RN, BSN /es/ Hilda Blake RN Med Re[facility] Signed: 03/01/2024 07:19 HILDA BLAKE [place] [facility]
--- OUTSIDE RECORDS SUMMARY | 2024-08-18 09:59 | XMS_ITS | Encounter Summary ---
Author Name [place] Address [address] [place] [address] Care Team Providers Care Farm Field Manager Name Role Phone EHSAN OVALLES Primary [...] PART A December 08, 2013 PART A [id number] [id number] GARRICK DAMICOBRIGID Lantigua PATIENT MEDICARE (WNR) MEDICARE (M) PART A December 08, 2013 PART A [id number] [id number] KONRADDENTONMartin BRIGID DAMICO PATIENT Selected Encounter This section includes the information on record at [place] for the Encounter. Date/Time Encounter Type Encounter Description Reason Provider Source December 23, 2023 05:34 PM Outpatient Encounter TELEPHONE PRIMARY CARE ICD-10-CM M54.50 Low back pain, unspecified ALESHIA TIPTON Martin Encounter Template Text not used by [place] Assessments - Encounter Diagnoses This section includes the primary and secondary diagnoses documented for the Encounter. Date/Time Primary/Secondary Diagnosis Diagnosis Name Provider Source December 23, 2023 05:34 PM PRIMARY Low back pain, unspecified BENJA TIPTON [facility] Plan of Treatment: Future Appointments (+ 6 months) and Future Tests (+/- 45 days) The Plan of Treatment section includes future care activities for the patient from [facility] [place] [facility] This section includes future appointments and future orders which are active, pending or scheduled. Future Appointments This section includes appointments that were scheduled to occur 6 months from the date of the Encounter, up to a maximum of 20 appointments. The data comes from all [place] treatment facilities. Appointment Date/Time Appointment Type Appointme nt Facility Name January 05, 2024 01:00 PM AM[place]ORY [place] [facility] [place] [facility] Jan 15, 2024 09:30 AM AMBULATORY - REHAB MEDICIN E [place] Feb 23, 2024 09:00 AM [place]ORY [place] [facility] [facility] [place] [facility] Feb 25, 2024 01:00 PM AM[place]UL[place]ORY [place] [facility] [place] [facility] Mar 21, 2024 10:00 AM AM[place]ULATORY [place] [facility] [facility] Mar 24, 2024 01:00 PM AM[place]ULATORY [place]ICINE [place] [facility] [place] [facility] Apr 06, 2024 10:00 AM AM[place]ULATORY [place]ICINE [place] [facility] [facility] May 24, 2024 12:00 PM AMBULATORY - NONE [place] [facility] [place] [facility] May 31, 2024 11:30 AM AMBULATORY [place]ICINE [place] [facility] [place] [facility] Jun 03, 2024 09:50 AM AM[place]ULATORY [place]ICINE [place] [facility] [facility] [place] [facility] Jun 07, 2024 11:30 AM [facility] [place] [facility] Social History: Smoking Status (Most [...] 12, 2023 10:46 AM [facility]CO [facility] Tobacco Use History This section includes a history of the smoking, or tobacco-related health factors, that were collected on or before the date of the Encounter. The data comes from the [place] facility where the Encounter took place. Date/Time Smoking Status/Tobacco Use Comment [place] Oct 20, 2015 10:30 AM LIFETIME NON-TOBACCO [...] the Encounter. Date/Time Encounter Note(s) Provider Source December 23, 2023 05:38 PM ACCOUNTING OF DISC LOSURES NOTE: LOCAL TITLE: STATE PRESCRIPTION DRUG MONITORING PROGRAM STANDARD TITLE: ACCOUNTING OF DISCLOSURES NOTE DATE OF NOTE: DECEMBER 23, 2023@17:38:59 ENTRY DATE: DECEMBER 23, 2023@17:38:59 AUTHOR: BENJA TIPTON EXP COSIGNER: URGENCY: STATUS: COMPLETED This PDMP query was submitted by Benja Tipton MD. The clinical justification for this PDMP query is to review controlled substances prescribed outside of the [facility], and any additional information that may become available, as an important component of standard clinical care, and in accordance with [facility] policy. Patient information was shared with the PDMP [place]. No prescription(s) for controlled substances outside the [facility] were found in the last 90 days. /dheeraj/ Benja Tipton MD STAFF PHYSICIAN Signed: 12/23/2023 17:40 BENJA TIPTON [facility] December 23, 2023 05:34 PM PAIN MEDICINE OUTP ATIENT NOTE: LOCAL TITLE: PAIN CLINIC NOTE STANDARD TITLE: PAIN MEDICINE OUTPATIENT NOTE DATE OF NOTE: DECEMBER 23, 2023@17:34 ENTRY DATE: DECEMBER 23, 2023@17:34:18 AUTHOR: BENJA TIPTON EXP COSIGNER: URGENCY: STATUS: COMPLETED Phone visit with patient in response to his secure message. He has been having some increase in pain correlating with increased activity levels lately. It is the likely radicular pain around his left knee as he was having previously. He notes he had a good response to belbuca in the past and would like to resume it. He was previously on Belbuca 300 bid but has been off it now for over a month. PLAN: Will rx Belbuca 150 tid; he can take it only twice if that suffices to control his pain. If not well controlled will increase back to 300 bid. /dheeraj/ Benja Tipton MD STAFF PHYSICIAN Signed: 12/23/2023 17:38 BENJA TIPTON [place] [facility]
--- OUTSIDE RECORDS SUMMARY | 2024-08-18 09:59 | XMS_ITS ---
Author Name [facility] [place] Address [address] [place] [address] Care Team Providers Care Human Development Professor Name Role Phone EHSAN OVALLES Primary [...] PART A December 08, 2013 PART A [id number] 62A [phone] BRIGID RAMOS PATIENT MEDICARE (WNR) MEDICARE (M) PART A December 08, 2013 PART A [id number] [id number] BRIGID RAMOS PATIENT Selected Encounter This section includes the information on record at [place] for the Encounter. Date/Time Encounter Type Encounter Description Reason Pro vider Source January 05, 2024 01:33 PM Outpatient Encounter EVENT (HISTORICAL) IHE Encounter [...] 20 appointments. The data comes from all [place] treatment facilities. Appointment Date/Time Appointment Type Appointme nt Facility Name Jan 15, 2024 09:30 AM AMBULATORY - REHAB MEDICIN E [place] Feb 23, 2024 09:00 AM AMBULATORY - MEDICINE [place] [facility] [place] [facility] Feb 25, 2024 01:00 PM AMBULATORY - REHAB MEDICIN E [place] [facility] [place] [place] [facility] Mar 21, 2024 10:00 AM AMBULATORY - MEDICINE [place] [facility] [place] [facility] Mar 24, 2024 01:00 PM AMBULATORY - MEDICINE [place] [facility] [place] [facility] Apr 06, 2024 10:00 AM AMBULATORY - MEDICINE [place] [facility] [place] [facility] May 24, 2024 12:00 PM AMBULATORY - NONE [place] [facility] [place] [facility] May 31, 2024 11:30 AM AMBULATORY - MEDICINE [place] [facility] [place] [facility] Jun 03, 2024 09:50 AM AMBULATORY - MEDICINE [place] [facility] [place] [facility] Jun 07, 2024 11:30 AM [facility] Active, Pending, and Scheduled Orders This section includes a listing of several types of active, pending, and scheduled orders, including clinic medications orders, diagnostic test orders, procedure orders and consult orders; where the start date of the order is 45 days before the date of the Encounter or 45 days after the date of theEncounter. The data comes from all [facility]. Test Date/Time Test Type Test Details Facility Name Feb 15, 2024 02:34 PM Consult Order COMMUNITY CARE-COLONOSCOPY SCREENING Cons Ballistic Technician's Choice [facility] Vital Signs: All taken on the encounter date This section contains inpatient and outpatient Vital Signs collected on the date of the Encounter. Date/Time Temperature Pulse Blood Pressure Respiratory Rate SP02 Pain Height Weight Body Mass Index Source January 05, 2024 01:07 PM 73 140/88 24 95 8 317 43 [facility] Social History: Smoking Status (Most current) [...] 12, 2023 10:46 AM VA-TOBACCO NEVER USED [facility] Tobacco Use History This section includes a history of the smoking, or tobacco-related health factors, that were collected on or before the date of the Encounter. The data comes from the [place] facility where the Encounter took place. Date/Time Smoking Status/Tobacco Use Comment F acility Oct 20, 2015 10:30 AM LIFETIME NON-TOBACCO USER [facility] Sep 19, 2009 11:13 AM LIFETIME NON-TOBACCO USER [facility] Advance Directives: All historical and current [...] Mar 22, 2018 ADVANCE DIRECTIVE JASWANT DICKINSON [facility]
--- OUTSIDE RECORDS SUMMARY | 2024-08-18 10:00 | XMS_ITS ---
Author Name [facility] [place] Address [address] [place] [address] Care Team Providers Care Aircraft Manager Name Role Phone EHSAN OVALLES Primary [...] PART A December 08, 2013 PART A [id number] [phone] GARRICK DAMICOBRIGID Lantigua PATIENT MEDICARE (WNR) MEDICARE (M) PART A December 08, 2013 PART A [id number] [phone] [id number] KONRADDENTONMartin BRIGID DAMICO PATIENT Selected Encounter This section includes the information on record at [place] for the Encounter. Date/Time Encounter Type Encounter Description Reason Provider Source Mar 21, 2024 11:43 AM FIT SPECTACLES BIFOCAL OPTOMETRY ICD-10-CM Z46.0 Encounter for fit/adjst of spectacles and contact lenses RENNY ARRIAGA Encounter Template Text not used by [place] Assessments - Encounter Diagnoses This section includes the primary and secondary diagnoses documented for the Encounter. Date/Time Primary/Secondary Diagnosis Diagnosis Name Provider Source Mar 21, 2024 11:43 AM PRIMARY Encounter for fit/adjst of spectacles and contact lenses NIKA VILLAGOMEZ [place] [facility] Plan of Treatment: Future Appointments (+ 6 months) and Future Tests (+/- 45 days) The Plan of Treatment section includes future care activities for the patient from all [place] treatments[facility]. This section includes future appointments and future orders which are active, pending or scheduled. Future Appointments This section includes appointments that were scheduled to occur 6 months from the date of the Encounter, up to a maximum of 20 appointments. The data comes from all [facility]. Appointment Date/Time Appointment Type Appointme nt Facility Name Mar 24, 2024 01:00 PM AMBULATORY - MEDICINE [place] [facility] [facility] Apr 06, 2024 10:00 AM [facility] May 24, 2024 12:00 PM [facility] May 31, 2024 11:30 AM [facility] Jun 03, 2024 09:50 AM [facility]ULATORY - [facility]IC[facility] [place] [facility] Jun 07, 2024 11:30 AM [facility] [place] [facility] Jul 27, 2024 02:30 PM AMBULAT[facility] Aug 30, 2024 11:00 AM [facility] [place] [facility] Sep 14, 2024 01:00 PM AMBULATORY - [facility] Active, Pending, and Scheduled Orders This section includes a listing of several types of active, pending, and scheduled orders, including clinic medications orders, diagnostic test orders, procedure orders and consult orders; where the start date of the order is 45 days before the date of the Encounter or 45 days after the date of theEncounter. The data comes from all [facility]. Test Date/Time Test Type Test Details Facility Name Feb 15, 2024 02:34 PM Consult Order COMMUNITY CARE-COLONOSCOPY SCREENING Cons Cooling Tower Operator's Choice [facility] Social History: Smoking Status (Most current) and Tobacco Use (All prior to encounter date) This section includes the most current, and the historical, smoking and tobacco- related health factors from the [place] facility where the Encounter took place. Current Smoking Status This section includes the most current smoking, or tobacco-related health factor, from the [place] facility where the Encounter took place. Date/Time Current Smoking Status Comment Jose armstrong May 12, 2023 10:46 AM VA-TOBACCO NEVER USED [facility] Tobacco Use History This section includes a history of the smoking, or tobacco-related health factors, that were collected on or before the date of the Encounter. The data comes from the [place] facility where the Encounter took place. Date/Time Smoking Status/Tobacco Use Comment Trisha renae Oct 20, 2015 10:30 AM LIFETIME NON-TOBACCO USER [facility] Sep 19, 2009 11:13 AM LIFETIME NON-TOBACCO USER [facility] Advance Directives: All historical and current Section Date Range: From patient's date of to the date document was created. This section includes ALL of a patient's completed or amended [place] Advance and Rescinded Directives. The entries below indicate that a directive exists for the patient, but an actual copy is not included with this document. The data comes from all [place] facilities. Date Advance Directives Provider Source Mar 22, 2018 ADVANCE DIRECTIVE JASWANT DICKINSON [facility] Encounter Notes: All associated encounter notes This section contains the clinical notes associated to the Encounter. Date/Time Encounter Note(s) Provider Source Mar 21, 2024 11:43 AM OPTOMETRY NOTE: LOCAL TITLE: OPTOMETRY NOTE STANDARD TITLE: OPTOMETRY NOTE DATE OF NOTE: MAR 21, 2024@11:43 ENTRY DATE: MAR 21, 2024@11:43:58 AUTHOR: KALIN PARRISH EXP COSIGNER: URGENCY: STATUS: COMPLETED OPTOMETRY NOTE Has ADDENDA Trivex bif only available in transitions brand photo duque The quote provided below is for informational purposes only. Please verify prior to the creation of a purchase order. COLBY HARTLEY [id number] RX INFORMATION OD 0.00 -0.50 X25 Add:+1.75 Pzm:0.00 Dir: Prz2:0.00 Dir2: OS +0.25 -0.75 X45 Add:+1.75 Pzm:0.00 Dir: Prz2:0.00 Dir2: FITTING INFORMATION FPD:66 NPD:63 Story:R: L: SEG HT:R:10 L:10 Tint:None Shade:None [place] Billable Items FRAME: FX27 COFFEE [id number] Right Lens: TRIVEX BIFOCAL FT28 TRANSITIONS DUQUE TRIVEX Left Lens: TRIVEX BIFOCAL FT28 TRANSITIONS DUQUE TRIVEX KLEAR ANTI-REFLECTIVE COATING /dheeraj/ KALIN PARRISH TOBACCO FARMWORKER Signed: 03/21/2024 11:44 Receipt Acknowledged By: 03/21/2024 11:48 /dheeraj/ Nika Villagomez LPN Licensed Practical Nurse 03/21/2024 ADDENDUM STATUS: COMPLETED PDS pay station collector fit 1 Bifocal eyeglasses on 03/21/2024. OPT HT entered consult(s) as requested for provider signature. /dheeraj/ Nika Villagomez LPN Licensed Practical Nurse Signed: 03/21/2024 11:50 KALIN PARRISH [facility]
--- OUTSIDE RECORDS SUMMARY | 2024-08-18 10:00 | XMS_ITS ---
Author Name [facility] [place] [facility] [place] Address [address] [place] [address] Care Team Providers Care Manager Strategic Alliances Name Role Phone EHSAN OVALLES Primary Care [...] PART A December 08, 2013 PART A [id number] BRIGID RAMOS PATIENT MEDICARE (WNR) MEDICARE (M) PART A December 08, 2013 PART A [id number] BRIGID RAMOS PATIENT Selected Encounter This section includes the information on record at [place] for the Encounter. Date/Time Encounter Type Encounter Description Reason Provider Source Feb 25, 2024 01:00 PM OFFICE O/P EST LOW 20 MIN PM&RS PHYSICIAN ICD-10-CM M25.562 Pain in left knee HUMAIRA PITTS [place] Encounter Template Text not used by [place] Assessments - Encounter Diagnoses This section includes the primary and secondary diagnoses documented for the Encounter. Date/Time Primary/Secondary Diagnosis Diagnosis Name Provider Source Apr 22, 2024 07:59 AM PRIMARY Pain in left knee JER PITTS [place] [facility] Apr 22, 2024 07:59 AM SECONDARY Chondromalacia patellae, left knee JER PITTS [facility] Plan of Treatment: Future Appointments (+ 6 months) and Future Tests (+/- 45 days) The Plan of Treatment section includes future care activities for the patient from all [place] [facility]. This section includes future appointments and future orders which are active, pending or scheduled. Future Appointments This section includes appointments that were scheduled to occur 6 months from the date of the Encounter, up to a maximum of 20 appointments. The data comes from all [facility]. Appointment Date/Time Appointment Type Appointme nt Facility Name Mar 21, 2024 10:00 AM [place]ULATORY [place] [facility] Mar 24, 2024 01:00 PM [facility] [place] [place] [facility] Apr 06, 2024 10:00 AM [place] [place] [facility] May 24, 2024 12:00 PM [facility] May 31, 2024 11:30 AM AMBULATORY - MEDICINE [facility] Jun 03, 2024 09:50 AM AMBULATORY - MEDICINE [facility] Jun 07, 2024 11:30 AM [facility] Jul 27, 2024 02:30 PM AMBULATORY - REHAB MEDICIN E [facility] Active, Pending, and Scheduled Orders This [...] PM Consult Order COMMUNITY CARE-COLONOSCOPY SCREENING Cons Wallpaperer Helper[facility] Choice [facility] Vital Signs: All taken on the encounter date This section contains inpatient and outpatient Vital Signs collected on the date of the Encounter. Date/Time Temperature Pulse Blood Pressure Respiratory Rate SP02 Pain Height Weight Body Mass Index Source Feb 25, 2024 01:18 PM 98 59 143/88 18 95 7 322.4 44 [facility] Social History: Smoking Status (Most current) and Tobacco Use (All prior to encounter date) This section includes the most current, and the historical, smoking and tobacco- related health factors from the [place] facility where the Encounter took place. Current Smoking Status This section includes the most current smoking, or tobacco-related health factor, from the [place] facility where the Encounter took place. Date/Time Current Smoking Status Comment Facil ity May 12, 2023 10:46 AM VA-TOBACCO NEVER USED [facility] Tobacco Use History This section includes a history of the smoking, or tobacco-related health factors, that were collected on or before the date of the Encounter. The data comes from the [place] facility where the Encounter took place. Date/Time Smoking Status/Tobacco Use Comment F acility Oct 20, 2015 10:30 AM LIFETIME NON-TOBACCO USER [facility] Sep 19, 2009 11:13 AM LIFETIME NON-TOBACCO USER [facility] Advance Directives: All historical and current Section Date Range: From patient's date of to the date document was created. This section includes ALL of a patient's completed or amended [place] Advance and Rescinded Directives. The entries below indicate that a directive exists for the patient, but an actual copy is not included with this document. The data comes from all [place] facilities. Date Advance Directives Provider Source Mar 22, 2018 ADVANCE DIRECTIVE [facility] Encounter Notes: All associated encounter notes This section contains the clinical notes associated to the Encounter. Date/Time Encounter Note(s) Provider Source Feb 25, 2024 03:00 PM PHYSICAL MEDICINE REHAB PHYSICIAN NOTE: LOCAL TITLE: PM&R FOLLOW-UP STANDARD TITLE: PHYSICAL MEDICINE REHAB PHYSICIAN NOTE DATE OF NOTE: FEB 25, 2024@15:00 ENTRY DATE: MAR 25, 2024@10:01:16 AUTHOR: HUMAIRA PITTS COSIGNER: URGENCY: STATUS: COMPLETED February 25 2024 COLBY HARTLEY II is a 53 y/o MALE who presents today for follow-up of evaluation of left knee. has been doing much better since he started working on mobility. Ankle mobility is improved as well as hip mobility. The knee is not as painful. Gait has improved. On occasion he will get a catching sensation medially. Previous MRI scan 2019 did not demonstrate any tear but his activities with and complaints are suggestive of medial meniscal tear versus retinacular tear. Squatting and kneeling bother him as do stairs at times. He does get an occasional catching sensation. PMHx as obtained from Chart: Active problems - Computerized Problem List is the source for the followin. Colonoscopy Screening 2. Left knee pain 3. Chronic low back pain 4. Chronic esophagitis 5. Obesity 6. Constrictive tenosynovitis 7. Erectile dysfunction 8. Obstructive sleep apnea syndrome 9. Hyperlipidemia 10. Posttraumatic stress disorder 11. Depression 12. Hypertension 13. Gout 14. Traumatic brain injury (SNOMED CT [id number]) 15. Asthma Soc Hx: MARITAL STATUS - [employer] FROM May TO Aug ALL: PENICILLIN, MUSHROOMS, MELOXICAM MEDS: Reviewed and Reconciled ROS: Constitutional - Denies fever or chills, night sweats, or unexplained weight loss. Head/Eyes/Ears/Neck- Denies headaches, visual changes. Cardiovascular - Denies chest pain/tightness, lower extremity swelling. Respiratory - Denies shortness of breath, or cough. GI - Denies nausea, vomiting, or loss of bowel fx/control. - Denies pelvic pain or loss of bladder function. Musculoskeletal - See HPI. Neuro - Denies numbness or tingling of the extremities. Skin/integuments - Denies rashes, lesions, or skin breakdown in the extremities. All other systems reviewed and are negative. PHYSICAL EXAMINATION: Vitals in chart. GEN: WD, WN. Awake, alert, cooperative with exam. PSYCH: Good eye contact. Appropriate affect and social interaction. HEENT: Normocephalic, atraumatic. CVS: Extremities warm/well perfused. No lower extremity edema. PULM: Breathing unlabored, no accessory muscle use. ABD: Nondistended. EXTREMITIES: No cyanosis or edema of bilateral upper and lower extremities. MUSCULOSKELETAL EXAM: Range of motion is full within the hips. He still has some trace weakness with resisted internal rotation of the hip Svetlana's and Gaenslen's are negative. No tenderness over the hip joint itself. Quadricep length is improved from previous examination he does have some mild parapatellar tenderness with a weakly positive Lenin. No tenderness over the pes anserine tendon. Calves are soft and nontender distal pulses intact. Diagnostic Studies: No new imaging. ASSESSMENT/PLAN: Patient is a 53-year-old with continued left knee complaints. He does feel that he is doing much better than he had previously. He is going to increase his activities and if his pain level should increase further consideration to community care for MRI and possible arthroscopy. There was a medial plica which may occasionally get inflamed or potentially meniscal injury. FOLLOW-UP: [place] seems to be moving in a good direction. Wishes to contact us if symptoms should worsen. Potential risks and side effects of any medication(s) prescribed today was reviewed with . Patient had many excellent questions, which I answered to the best of my ability and to patient's apparent satisfaction. MDM: __15 minutes which includes reviewing records, evaluating patient, documenting in medical record, educating, counseling and coordinating care. Medication Reconciliation: Outpatient: Has the patient been [...] with a VA or non-VA provider. /dheeraj/ HUMAIRA PITTS [facility],P Signed: 03/25/2024 10:11 [facility] PITTS [place] [facility]
--- OUTSIDE RECORDS SUMMARY | 2024-08-18 10:00 | XMS_ITS ---
Author Name [facility] [place] [facility] [place] Address [address] [place] [address] Care Team Providers Care Clinical Project Manager Name Role Phone EHSAN OVALLES Primary [...] PART A December 08, 2013 PART A [id number] KARENMartin MARGAUXBRIGID Lantigua PATIENT MEDICARE (WNR) MEDICARE (M) PART A December 08, 2013 PART A [id number] 62A BRIGID RAMOS PATIENT Selected Encounter This section includes the information on record at [place] for the Encounter. Date/Time Encounter Type Encounter Description Reason Pro vider Source May 09, 2024 01:29 PM Outpatient Encounter PRIMARY CARE/MEDICINE IHE Encounter Template Text not used by [place] Plan of Treatment: Future Appointments (+ 6 [...] 20 appointments. The data comes from all [place] treatment facilities. Appointment Date/Time Appointment Type Appointme nt Facility Name May 24, 2024 12:00 PM AMBULATORY - NONE [place] [facility] [place] [facility] May 31, 2024 11:30 AM AMBULATORY - MEDICINE [place] [facility] [place] [facility] Jun 03, 2024 09:50 AM AMBULATORY - MEDICINE [facility] [place] [facility] Jun 07, 2024 11:30 AM AMBULATORY - NONE [place] [facility] [place] [facility] Jul 27, 2024 02:30 PM AMBULATORY - REHAB MEDICIN E [facility] [place] [facility] Aug 30, 2024 11:00 AM AMBULATORY - MEDICINE [place] [facility] [place] [facility] Sep 14, 2024 01:00 PM AMBULATORY - REHAB MEDICIN E [place] [facility] [place] [facility] Active, Pending, and Scheduled Orders This section includes a listing of several types of active, pending, and scheduled orders, including clinic medications orders, diagnostic test orders, procedure orders and consult orders; where the start date of the order is 45 days before the date of the Encounter or 45 days after the date of theEncounter. The data comes from all [place] treatment facilities. Test Date/Time Test Type Test Details Facility Name May 16, 2024 02:21 PM Consult Order COMMUNITY CARE-UROLOGY Cons [facility] Asst's Choice [facility] Lab Results: +/- 30 days of the encounter This section includes the Chemistry and Hematology Lab Results on record with [place] for the patient. Radiology Reports and Pathology Reports are provided separately, in subsequent sections. Lab Results This section contains the Chemistry/Hematology Results that were resulted 30 days before or 30 daysafter the date of the Encounter. Date/Time Source Result Type Result - Unit Interpretation Reference Range Comment May 12, 2024 07:53 AM [facility] METHADONE SCREEN Specimen Type: URINE Comment: MALCOLM test are qualitative, any L or H flags only indicate a [facility] alert was sent. Ordering Provider: DEE DEE WILSON Report Released Date/Time: May 11, 2024 03:52 PM Reporting [facility] [address] Performing Lab: [facility] [address] [address] METHADONE SCREEN None detected(Nega tive) L Negative May 12, 2024 07:53 AM [facility] ALCOHOL, ETHYL URINE PANEL Specimen Type: URINE Comment: Urine with Cr <5 is diluted or substituted. Cr between 5 and 20 is very dilute. Urine with SG of 1.001 or less is diluted or substituted. SG of 1.003 or less is very dilute. Urine with a pH <3 or >11 has been adulterated and is unsuitable for testing by our current method. Urine with pH between 3 and 4 OR 10 and 11 may have been adulterated. Ordering Provider: DEE DEE WILSON Report Released Date/Time: May 11, 2024 03:52 PM Reporting Lab: [address] [address] Performing Lab: [address] [address] ALCOHOL, ETHYL URINE NONE-DETECTED mg/dL NONE-DETEC AMANDA, cutoff = 10 mg/dL PH, MALCOLM 5.6 [pH] 4-10 CREATININE, MALCOLM 162.14 mg/dL >20 SP.GRAVITY, MALCOLM 1.021 H 1.00 3-1.02 0 May 12, 2024 07:53 AM [facility] AMPHETAMINES SCREEN PANEL Specimen Type: URINE Comment: Urine with Cr <5 is diluted or substituted. Cr between 5 and 20 is very dilute. Urine with SG of 1.001 or less is diluted or substituted. SG of 1.003 or less is very dilute. Urine with a pH <3 or >11 has been adulterated and is unsuitable for testing by our current method. Urine with pH between 3 and 4 OR 10 and 11 may have been adulterated. Ordering Provider: DEE DEE WILSON Report Released Date/Time: May 11, 2024 03:52 PM Reporting Lab: [address] [address] Performing Lab: [address] [address] AMPHETAMINES SCREEN NONE-DETECTED None-Detec amanda, Cutoff = 1000 ng/mL PH, MALCOLM 5.6 [pH] 4-10 CREATININE, MALCOLM 162.14 mg/dL >20 SP.GRAVITY, MALCOLM 1.021 H 1.00 3-1.02 0 May 12, 2024 07:53 AM [facility] FENTANYL SCREEN PANEL Specimen Type: URINE Comment: Urine with Cr <5 is diluted or substituted. Cr between 5 and 20 is very dilute. Urine with SG of 1.001 or less is diluted or substituted. SG of 1.003 or less is very dilute. Urine with a pH <3 or >11 has been adulterated and is unsuitable for testing by our current method. Urine with pH between 3 and 4 OR 10 and 11 may have been adulterated. FENTANYL CONFIRMATION NOT SENT BY LAB. Ordering Provider: DEE DEE WILSON Report Released Date/Time: May 11, 2024 03:52 PM Reporting Lab: [address] [address] Performing Lab: [address] [address] FENTANYL SCREEN NONE-DETECTE D ng/mL Negative: Cutoff = 1.00 ng/mL PH, MALCOLM 5.6 [pH] 4-10 CREATININE, MALCOLM 156.70 mg/dL >20 SP.GRAVITY, MALCOLM 1.020 1.00 3-1.02 0 May 12, 2024 07:53 AM [facility] BENZODIAZEPINES SCREEN PANEL Specimen Type: URINE Comment: Urine with Cr <5 is diluted or substituted. Cr between 5 and 20 is very dilute. Urine with SG of 1.001 or less is diluted or substituted. SG of 1.003 or less is very dilute. Urine with a pH <3 or >11 has been adulterated and is unsuitable for testing by our current method. Urine with pH between 3 and 4 OR 10 and 11 may have been adulterated. Ordering Provider: DEE DEE WILSON Report Released Date/Time: May 11, 2024 03:52 PM Reporting Lab: [address] [address] Performing Lab: [address] [address] BENZODIAZEPINES SCREEN NONE-DETECTED None-Detec amanda, Cutoff = 200 ng/mL PH, MALCOLM 5.6 [pH] 4-10 CREATININE, MALCOLM 162.14 mg/dL >20 SP.GRAVITY, MALCOLM 1.021 H 1.00 3-1.02 0 May 12, 2024 07:53 AM [facility] BUPRENORPHINE SCREEN PANEL Specimen Type: URINE Comment: Urine with Cr <5 is diluted or substituted. Cr between 5 and 20 is very dilute. Urine with SG of 1.001 or less is diluted or substituted. SG of 1.003 or less is very dilute. Urine with a pH <3 or >11 has been adulterated and is unsuitable for testing by our current method. Urine with pH between 3 and 4 OR 10 and 11 may have been adulterated. Ordering Provider: DEE DEE WILSON Report Released Date/Time: May 11, 2024 03:52 PM Reporting Lab: [address] [address] Performing Lab: [address] [address] BUPRENORPHINE (URINE) NONE-DETECTED None Detected, Cutoff = 10.0 ng/mL PH, MALCOLM 5.6 [pH] 4-10 CREATININE, MALCOLM 162.14 mg/dL >20 SP.GRAVITY, MALCOLM 1.021 H 1.00 3-1.02 0 May 12, 2024 07:53 AM [facility] CANNABINOIDS SCREEN PANEL Specimen Type: URINE Comment: Urine with Cr <5 is diluted or substituted. Cr between 5 and 20 is very dilute. Urine with SG of 1.001 or less is diluted or substituted. SG of 1.003 or less is very dilute. Urine with a pH <3 or >11 has been adulterated and is unsuitable for testing by our current method. Urine with pH between 3 and 4 OR 10 and 11 may have been adulterated. Ordering Provider: DEE DEE WILSON Report Released Date/Time: May 11, 2024 03:52 PM Reporting Lab: [address] [address] Performing Lab: [facility] [address] [address] CANNABINOIDS SCREEN NONE-DETECTED None-Detec amanda,Cutoff = 50 ng/mL PH, MALCOLM 5.6 [pH] 4-10 CREATININE, MALCOLM 162.14 mg/dL >20 SP.GRAVITY, MALCOLM 1.021 H 1.00 3-1.02 0 May 12, 2024 07:53 AM [facility] COCAINE SCREEN PANEL Specimen Type: URINE Comment: Urine with Cr <5 is diluted or substituted. Cr between 5 and 20 is very dilute. Urine with SG of 1.001 or less is diluted or substituted. SG of 1.003 or less is very dilute. Urine with a pH <3 or >11 has been adulterated and is unsuitable for testing by our current method. Urine with pH between 3 and 4 OR 10 and 11 may have been adulterated. Ordering Provider: DEE DEE WILSON Report Released Date/Time: May 11, 2024 03:52 PM Reporting Lab: [place] [id number] Performing Lab: [place] [id number] COCAINE SCREEN NONE-DETECTED N one-Detec amanda,Cutoff = 300 ng/mL PH, MALCOLM 5.6 [pH] 4-10 CREATININE, MALCOLM 162.14 mg/dL >20 SP.GRAVITY, MALCOLM 1.021 H 1.00 3-1.02 0 May 12, 2024 07:53 AM [facility] OPIATES SCREEN PANEL Specimen Type: URINE Comment: Urine with Cr <5 is diluted or substituted. Cr between 5 and 20 is very dilute. Urine with SG of 1.001 or less is diluted or substituted. SG of 1.003 or less is very dilute. Urine with a pH <3 or >11 has been adulterated and is unsuitable for testing by our current method. Urine with pH between 3 and 4 OR 10 and 11 may have been adulterated. Ordering Provider: DEE DEE WILSON Report Released Date/Time: May 11, 2024 03:52 PM Reporting Lab: [place] [phone] Performing Lab: [address] [address] OPIATES SCREEN NONE-DETECTED N one-Detec amanda, Cutoff = 300 ng/mL PH, MALCOLM 5.6 [pH] 4-10 CREATININE, MALCOLM 162.14 mg/dL >20 SP.GRAVITY, MALCOLM 1.021 H 1.00 3-1.02 0 May 12, 2024 07:53 AM [facility] OXYCODONE SCREEN PANEL Specimen Type: URINE Comment: Urine with Cr <5 is diluted or substituted. Cr between 5 and 20 is very dilute. Urine with SG of 1.001 or less is diluted or substituted. SG of 1.003 or less is very dilute. Urine with a pH <3 or >11 has been adulterated and is unsuitable for testing by our current method. Urine with pH between 3 and 4 OR 10 and 11 may have been adulterated. Ordering Provider: DEE DEE WILSON Report Released Date/Time: May 11, 2024 03:52 PM Reporting Lab: [address] [address] Performing Lab: [address] [address] OXYCODONE SCREEN NONE-DETECTED None-Detec amanda, Cutoff = 100 ng/mL PH, MALCOLM 5.6 [pH] 4-10 CREATININE, MALCOLM 162.14 mg/dL >20 SP.GRAVITY, MALCOLM 1.021 H 1.00 3-1.02 0 May 12, 2024 07:47 AM [facility] HEMOGLOBIN A1C PANEL Specimen Type: BLOOD Comment: Values obtained from A1C measurements can vary. For atypical A1C assays, a reported value of 7.0 could actually be between 6.72 and 7.28 if measured by a reference method. A reported value of 9.0 could actually be between 8.73 and 9.27. Ref: http://www.ng sp.org/CAPdat a.asp Ordering Provider: EHSAN OVALLES Report Released Date/Time: Nov 11, 2023 05:57 AM Reporting Lab: [address] [address] Performing Lab: [facility] [place] [facility] [address] [address] HEMOGLOBIN A1C 5.0 4.0-5.6 May 12, 2024 07:47 AM [facility] MAGNESIUM Specimen Type: SERUM No comment entered. Ordering Provider: EHSAN OVALLES Report Released Date/Time: Nov 11, 2023 05:57 AM Reporting Lab: [facility] [place] [facility] [address] [facility] [address] Performing Lab: [facility]TRN [facility] [address] [facility] [address] MAGNESIUM 2.0 mg/dL 1.6-2.6 May 12, 2024 07:47 AM [facility] URIC ACID Specimen Type: SERUM No comment entered. Ordering Provider: EHSAN OVALLES Report Released Date/Time: Nov 11, 2023 05:57 AM Reporting Lab: [facility] [place] [facility] [address] [facility] [address] Performing Lab: [facility]TRN [facility] [address] [address] URIC ACID 5.6 mg/dL 3.5-7.2 May 12, 2024 07:47 AM [facility] LIPID PANEL FASTING Specimen Type: SERUM No comment entered. Ordering Provider: EHSAN OVALLES Report Released Date/Time: Nov 11, 2023 05:57 AM Reporting Lab: [facility] [place] [facility] [address] [facility] [address] Performing Lab: [facility]TRN [facility] [address] [address] CHOLESTEROL 246 mg/dL H TRIGLYCERIDE 153 mg/dL H 0-150 LDL calculated 182 mg/dL H 0-129 CHOL/HDL 7.5 HDL CHOLESTEROL 33 mg/dL L 40-60 May 12, 2024 07:47 AM [facility] PSA Specimen Type: SERUM No comment entered. Ordering Provider: EHSAN OVALLES Report Released Date/Time: Nov 11, 2023 05:57 AM Reporting Lab: [facility] [place] [facility] [address] [facility] [address] Performing Lab: [place] [facility] [place] [facility] [address] [facility] [address] PSA 0.84 ng/mL 0.00-4.00 May 12, 2024 07:47 AM [facility] TSH Specimen Type: SERUM No comment entered. Ordering Provider: EHSAN OVALLES Report Released Date/Time: Nov 11, 2023 05:57 AM Reporting Lab: [facility] TRN [facility] [address] [facility] [address] Performing Lab: [facility] [address] [address] TSH 4.05 u[IU]/mL 0.35-5.00 May 12, 2024 07:47 AM [facility] LIVER FUNCTION Specimen Type: SERUM No comment entered. Ordering Provider: EHSAN OVALLES Report Released Date/Time: Nov 11, 2023 05:57 AM Reporting Lab: [facility] [address] [facility] [address] Performing Lab: [facility] [address] [facility] [address] PROTEIN,TOTAL 6.6 g/dL 6.0-8.3 ALBUMIN 3.8 g/dL 3.5-5.0 ALKALINE PHOSPHATASE 59 U/L 40-150 AST 20 U/L 5-34 ALT 37 U/L BILIRUBIN, TOTAL 0.4 mg/dL 0.2-1.2 May 12, 2024 07:47 AM [facility] METABOLIC PANEL (fasting) Specimen Type: SERUM No comment entered. Ordering Provider: EHSAN OVALLES Report Released Date/Time: Nov 11, 2023 05:57 AM Reporting Lab: [facility] TRN [facility] [address] [facility] [address] Performing Lab: [facility]ENTERUSETS [address] [address] UREA NITROGEN 22 mg/dL 7-25 GLUCOSE 88 mg/dL 65-100 SODIUM 141 mmol/L 135-145 POTASSIUM 4.4 mmol/L 3.5-5.0 CHLORIDE 108 mmol/L 100-110 CO2 23 meq/L 20-30 CREATININE, Serum 1.09 mg/dL 0.50-1.40 eGFR(CKD-EPI 2020) 82 mL/min >60 May 12, 2024 07:47 AM [facility] CBC AND DIFF (AUTO) Specimen Type: BLOOD No comment entered. Ordering Provider: EHSAN OVALLES Report Released Date/Time: Nov 11, 2023 05:57 AM Reporting Lab: [facility] [address] [facility] [address] Performing Lab: [facility] [address] [facility] [address] WBC 8.27 10*3/uL 4.50-11.00 RBC 5.05 10*6/uL 4.23-5.66 HGB 15.2 g/dL 12.8-17 HCT 45.6 39.2-50.4 MCV 90.3 fL 82-99 MCHC 33.3 g/dL 30.8-35.1 PLT 220 10*3/uL 140-360 RDW-CV 13.2 12.0-16.0 MONO, ABS 0.63 10*3/uL 0.30-1.10 MCH 30.1 pg 26.2-32.6 NEUT % 61.8 43.7-75.8 LYMPH % 27.1 14.0-42.3 MONO % 7.6 5.1-13.7 EOS % 2.5 0.4-6.8 BASO % 0.6 0.1-2.0 NEUT, ABS 5.11 10*3/uL 2.20-7.60 LYMPH, ABS 2.24 10*3/uL 1.00-3.20 EOS, ABS 0.21 10*3/uL 0.03-0.44 BASO, ABS 0.05 10*3/uL 0.01-0.13 IMMATURE GRAN % 0.4 0.0-0.7 IMMATURE GRAN, ABS 0.03 10*3/uL 0.00-0.06 NRBC % 0.0 0.0-0.0 NRBC, ABS 0.00 10*3/uL 0.00-0.00 Social History: Smoking Status (Most current) and Tobacco Use (All prior to encounter date) This section includes the most current, and the historical, smoking and tobacco- related health factors from the [place] facility where the Encounter took place. Current Smoking Status This section includes the most current smoking, or tobacco-related health factor, from the [place] facility where the Encounter took place. Date/Time Current Smoking Status Comment Facil ity May 12, 2023 10:46 AM VA-TOBACCO NEVER USED [facility] Tobacco Use History This section includes a history of the smoking, or tobacco-related health factors, that were collected on or before the date of the Encounter. The data comes from the [place] facility where the Encounter took place. Date/Time Smoking Status/Tobacco Use Comment F acility Oct 20, 2015 10:30 AM LIFETIME NON-TOBACCO USER [facility] Sep 19, 2009 11:13 AM LIFETIME NON-TOBACCO USER [facility] Advance Directives: All historical and current Section Date Range: From patient's date of to the date document was created. This section includes ALL of a patient's completed or amended [place] Advance and Rescinded Directives. The entries below indicate that a directive exists for the patient, but an actual copy is not included with this document. The data comes from all [place] facilities. Date Advance Directives Provider Source Mar 22, 2018 ADVANCE DIRECTIVE JASWANT DICKINSON [facility] Encounter Notes: All associated encounter notes This section contains the clinical notes associated to the Encounter. Date/Time Encounter Note(s) Provider Source May 09, 2024 01:29 PM PRIMARY CARE TELEP [place]LLEN ENCOUNTER NOTE: LOCAL TITLE: TELEPHONE NOTE/PRIMARY CARE STANDARD TITLE: PRIMARY CARE TELEPHONE ENCOUNTER NOTE DATE OF NOTE: MAY 09, 2024@13:29 ENTRY DATE: MAY 09, 2024@13:29:44 AUTHOR: LATASHA BARON EXP COSIGNER: URGENCY: STATUS: COMPLETED S/W VET RE FBW PRIOR TO APPT ON 05/17dheeraj/ LATASHA BARON ADVANCED SPECTACLE TRUER Signed: 05/09/2024 13:30 LATASHA BARON [place]
--- OUTSIDE RECORDS SUMMARY | 2024-08-18 10:00 | XMS_ITS ---
Author Name [facility] [place] Organization [facility] [place] Address [address] [place] [address] Care Team Providers Care Specimen Transporter Name Role Phone EHSAN OVALLES Primary Care [...] PART A December 08, 2013 PART A [id number] BRIGID RAMOS PATIENT MEDICARE (WNR) MEDICARE (M) PART A December 08, 2013 PART A [id number] [phone] GARRICK DAMICOBRIGID Lantigua PATIENT Selected Encounter This section includes the information on record at [place] for the Encounter. Date/Time Encounter Type Encounter Description Reason Provider Source Mar 24, 2024 01:00 PM OFFICE O/P EST MOD 30 MIN PAIN CLINIC ICD-10-CM M25.562 Pain in left knee BENJA TIPTON Martin Encounter Template Text not used by [place] Assessments - Encounter Diagnoses This section includes the primary and secondary diagnoses documented for the Encounter. Date/Time Primary/Secondary Diagnosis Diagnosis Name Provider Source Mar 24, 2024 01:41 PM PRIMARY Pain in left knee BENJA TIPTON [facility] [place] [place] [facility] Mar 24, 2024 01:41 PM SECONDARY Low back pain, unspecified [facility]IPTON [facility] Mar 24, 2024 01:41 PM SECONDARY Post-traumatic stress disorder, chronic [facility]ENJA TIPTON [facility] Plan of Treatment: Future Appointments (+ 6 months) and Future Tests (+/- 45 days) The Plan of Treatment section includes future care activities for the patient from all [place] [facility]. This section includes future appointments and future orders which are active, pending or scheduled. Future Appointments This section includes appointments that were scheduled to occur 6 months from the date of the Encounter, up to a maximum of 20 appointments. The data comes from all [facility]. Appointment Date/Time Appointment Type Appointme nt Facility Name Apr 06, 2024 10:00 AM AMBULATORY - MEDICINE [facility] May 24, 2024 12:00 PM [facility] May 31, 2024 11:30 AM AMBULATORY - MEDICINE [facility] Jun 03, 2024 09:50 AM AMBULATORY - MEDICINE [facility] [place] [facility] Jun 07, 2024 11:30 AM [facility] Jul 27, 2024 02:30 PM [facility]UL[facility] Aug 30, 2024 11:00 AM AMBULATORY - MEDICINE [facility] Sep 14, 2024 01:00 PM AMBULATORY - [facility] Active, Pending, and Scheduled Orders This section includes a listing of several types of active, pending, and scheduled orders, including clinic medications orders, diagnostic test orders, procedure orders and consult orders; where the start date of the order is 45 days before the date of the Encounter or 45 days after the date of theEncounter. The data comes from all [facility]. Test Date/Time Test Type Test Details Facility Name Feb 15, 2024 02:34 PM Consult Order COMMUNITY CARE-COLONOSCOPY SCREENING Cons Rn L And D's Choice [facility] Social History: Smoking Status (Most current) and Tobacco Use (All prior to encounter date) This section includes the most current, and the historical, smoking and tobacco- related health factors from the [place] facility where the Encounter took place. Current Smoking Status This section includes the most current smoking, or tobacco-related health factor, from the [place] facility where the Encounter took place. Date/Time Current Smoking Status Comment Jose ity May 12, 2023 10:46 AM VA-TOBACCO NEVER USED [facility] Tobacco Use History This section includes a history of the smoking, or tobacco-related health factors, that were collected on or before the date of the Encounter. The data comes from the [place] facility where the Encounter took place. Date/Time Smoking Status/Tobacco Use Comment F acility Oct 20, 2015 10:30 AM LIFETIME NON-TOBACCO USER [facility] Sep 19, 2009 11:13 AM LIFETIME NON-TOBACCO USER [facility] Advance Directives: All historical and current Section Date Range: From patient's date of to the date document was created. This section includes ALL of a patient's completed or amended [place] Advance and Rescinded Directives. The entries below indicate that a directive exists for the patient, but an actual copy is not included with this document. The data comes from all [place] facilities. Date Advance Directives Provider Source Mar 22, 2018 ADVANCE DIRECTIVE JASWANT DICKINSON [facility] Encounter Notes: All associated encounter notes This section contains the clinical notes associated to the Encounter. Date/Time Encounter Note(s) Provider Source Mar 24, 2024 01:41 PM ACCOUNTING OF DISCLOSURES NOTE: LOCAL TITLE: STATE PRESCRIPTION DRUG MONITORING PROGRAM STANDARD TITLE: ACCOUNTING OF DISCLOSURES NOTE DATE OF NOTE: MAR 24, 2024@13:41:41 ENTRY DATE: MAR 24, 2024@13:41:41 AUTHOR: BENJA TIPTON EXP COSIGNER: URGENCY: STATUS: COMPLETED This PDMP query was submitted by Benja Tipton MD. The clinical justification for this PDMP query is to review controlled substances prescribed outside of the [facility], and any additional information that may become available, as an important component of standard clinical care, and in accordance with [facility] policy. Patient information was shared with the PDMP [facility] [place]. No prescription(s) for controlled substances outside the [facility] were found in the last 90 days. /dheearj/ Benja Tipton MD STAFF PHYSICIAN Signed: 03/24/2024 13:42 BENJA TIPTON [place] [facility] [place] [facility] Mar 24, 2024 12:55 PM PAIN MEDICINE OUTPATIENT NOTE: LOCAL TITLE: PAIN CLINIC NOTE STANDARD TITLE: PAIN MEDICINE OUTPATIENT NOTE DATE OF NOTE: MAR 24, 2024@12:55 ENTRY DATE: MAR 24, 2024@12:55:22 AUTHOR: BENJA TIPTON EXP COSIGNER: URGENCY: STATUS: COMPLETED Presents for [facility] follow up visit. 4 weeks ago he was seen in physiatry and physical exam was apparently suggestive of left knee meniscal injury. He believes he cannot have MRI because of severe sleep apnea when he lies flat. He was referred to [facility], has not been contacted for appt. The referral has been processed, and I gave him the phone # to call for appt. He plans to call right after this visit. He has been having pain from knee to heel, reportedly exacerbated by the physical exam he had on 02/24. He spoke to pain pharmacist on 03/01 and was advised to increase Belbuca from 150 tid to 300 bid. He has done that, though he often stops it for a day or two, and then notes it works better when he resumes it. He says he has become accustomed to the chronic pain and is not seeking more medication. He wants to see ortho to see if there is indeed a meniscal injury that needs repair. Active Outpatient Medications Status 1) ALBUTEROL 90MCG (CFC-F) 200D ORAL INHL INHALE 2 PUFFS ACTIVE BY MOUTH FOUR TIMES DAILY NEEDED FOR SHORTNESS OF BREATH -- has needed very rarely 2) BUPRENORPHINE 150MCG BUCCAL FILM PLACE ONE FILM ACTIVE BETWEEN CHEEK AND GUM UNTIL DISSOLVED THREE TIMES A DAY FOR PAIN -- taking 300 bid; it snows him a bit but also helps the pain a bit. He takes a break from it after a few days. 3) CHOLECALCIF 50MCG (D3-2,000UNIT) TAB TAKE TWO TABLETS ACTIVE BY MOUTH EVERY DAY FOR VITAMIN SUPPLEMENTATION -- taking 4) CLOMIPHENE CITRATE 50MG TAB TAKE ONE-HALF TABLET BY ACTIVE MOUTH ONCE DAILY -- taking 5) FLUTICAS 500/SALMETEROL 50 INHL DISK 60 INHALE 1 PUFF ACTIVE BY MOUTH TWICE DAILY - RINSE MOUTH AFTER USE -- not needing since had acupuncture 6) LIDOCAINE 5% OINT APPLY THIN LAYER TOPICALLY TWICE ACTIVE DAILY TO THREE TIMES A DAY NEEDED FOR MINOR SKIN WOUND PAIN -- not very helpfu. 7) LOSARTAN 100MG TAB TAKE ONE TABLET BY MOUTH ONCE ACTIVE DAILY FOR BLOOD PRESSURE/HEART -- taking 8) MONTELUKAST NA 10MG TAB TAKE ONE TABLET BY MOUTH AT ACTIVE (S) BEDTIME FOR CONTROLLER MEDICATION FOR ASTHMA -- taking, hoping to stop it soon. 9) NAPROXEN 500MG TAB TAKE ONE TABLET BY MOUTH TWICE ACTIVE DAILY TAKE WITH FOOD -- taking 10) OMEPRAZOLE 20MG EC CAP TAKE ONE CAPSULE BY MOUTH ACTIVE TWICE DAILY -- taking 11) PREGABALIN 100MG ORAL CAP TAKE ONE CAPSULE BY MOUTH ACTIVE TWICE DAILY FOR PAIN -- taking 12) TESTOSTERONE CYP 200MG/ML 1ML IN OIL INJECT 0.5ML ACTIVE (100MG) INTRAMUSCULARLY ONCE A WEEK VIALS ARE ONLY TO BE USED ONE TIME -- taking : acetaminophen -- takes about twice per week, doesn't help much diclofenac gel -- not very helpful prazosin -- stopped He reports he also takes allopurinol 100 mg daily, last prescribed one year ago, but he says he still has ample supply from old rx's. Appears comfortable by [facility]. 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 Lumbar CT scan in Mar 2023 ([facility]) showed neuroforaminal stensoses L3-S1. He eventually got left L3-4 and right S1 transforaminal epidural steroid injections in Sep 2023; he got great pain relief from the injections. His left knee area pain never fully resolved though. He had a physiatry follow up evaluation in February 2024 and a careful provocative physical exam raised suspicion of a meniscal injury (the exam also exacerbated his pain). He now has pending [facility] consult to evaluate further; he believes that his severe sleep apnea will not allow him to have a MRI. He generally prefers to avoid using medication, but takes naproxen, pregabalin, belbuca and occasional acetaminophen for pain relief. After recent exacerbation a few weeks ago he incrased Belbuca from 150 tid to 300 bid which provides fair pain relief but makes him spacey. For the time being he is content to continue current medication until he has completed his orthopedica evaluation. PLAN: 1. New rx for Belbuca 300 bid to reflect what he currently takes. 2. He was given the phone # for [facility] to schedule appointment. 3. Continue other meds. 4. f/u 3 months, sooner if needed. /dheeraj/ Benja Tipton MD STAFF PHYSICIAN Signed: 03/24/2024 13:41 BENJA TIPTON [place] [facility]
--- OUTSIDE RECORDS SUMMARY | 2024-08-18 10:00 | XMS_ITS | Encounter Summary ---
Author Name [facility] [place] Organization [place] Address [address] [place] [address] Care Team Providers Care Windows Administrator Name Role Phone EHSAN OVALLES Primary Care [...] PART A December 08, 2013 PART A [id number] BRIGID RAMOS PATIENT MEDICARE (WNR) MEDICARE (M) PART A December 08, 2013 PART A [id number] [phone] BRIGID RAMOS PATIENT Selected Encounter This section includes the information on record at [place] for the Encounter. Date/Time Encounter Type Encounter Description Reason Pro vider Source Apr 06, 2024 12:00 PM Outpatient Encounter COMMUNITY CARE CONSULT [...] PM AMBULATORY - NONE [place] [facility] [place] [facility] May 31, 2024 11:30 AM AMBULATORY - MEDICINE [facility] [place] [facility] Jun 03, 2024 09:50 AM AMBULATORY - MEDICINE CT [facility] [place] [facility] Jun 07, 2024 11:30 AM AMBULATORY - NONE [place] [facility] [place] [facility] Jul 27, 2024 02:30 PM AMBULATORY - REHAB MEDICIN E [facility] [place] [facility] Aug 30, 2024 11:00 AM AMBULATORY - MEDICINE [facility] Sep 14, 2024 01:00 PM [facility] Active, Pending, and Scheduled Orders This section includes a listing of several types of active, pending, and scheduled orders, including clinic medications orders, diagnostic test orders, procedure orders and consult orders; where the start date of the order is 45 days before the date of the Encounter or 45 days after the date of theEncounter. The data comes from all [facility]. 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 The data comes from the [place] facility where the Encounter took place. Date/Time Smoking Status/Tobacco Use Comment F acility Oct 20, 2015 10:30 AM LIFETIME [facility]ACCO [facility] Sep 19, 2009 11:13 AM LIFETIME NON-TOBACCO USER [facility] Advance Directives: All historical and [...] JASWANT DICKINSON [facility] Encounter Notes: All associated encounter notes This section contains the clinical notes associated to the Encounter. Date/Time Encounter Note(s) Provider Source Apr 06, 2024 12:00 PM NONVA CONSULT: LOCAL TITLE: COMMUNITY CARE-CONSULT RESULT NOTE STANDARD TITLE: NONVA CONSULT DATE OF NOTE: APR 06, 2024@12:00 ENTRY DATE: APR 26, 2024@09:44:41 AUTHOR: RAMON ARTIS EXP COSIGNER: URGENCY: STATUS: COMPLETED VistA Imaging - Scanned Document SCANNED DOCUMENT SIGNATURE NOT REQUIRED Electronically Filed: 04/26/2024 by: RAMON ARTIS RETAIL LOSS PREVENTION OFFICER RAMON ARTIS [facility]
--- OUTSIDE RECORDS SUMMARY | 2024-08-18 10:00 | XMS_ITS | Encounter Summary ---
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 Date/Time Encounter Type Encounter Description Reason Pro vider Source May 04, 2024 10:57 AM Outpatient Encounter PM&RS PHYSICIAN IHE Encounter Template Text not used by [place] Plan of Treatment: Future Appointments (+ 6 [...] 20 appointments. The data comes from all [place] treatment facilities. Appointment Date/Time Appointment Type Appointme nt Facility Name May 24, 2024 12:00 PM AMBULATORY - NONE [place] [facility] [place] [facility] May 31, 2024 11:30 AM AMBULATORY - MEDICINE [place] [facility] [place] [facility] Jun 03, 2024 09:50 AM AMBULATORY - MEDICINE [place] [facility] [place] [facility] Jun 07, 2024 11:30 AM AMBULATORY - NONE [place] [facility] [place] [facility] Jul 27, 2024 02:30 PM AMBULATORY - REHAB MEDICIN E [facility] [place] [facility] Aug 30, 2024 11:00 AM AMBULATORY - MEDICINE [place] [facility] [place] [facility] Sep 14, 2024 01:00 PM AMBULATORY - REHAB MEDICIN E [place] [facility] [place] [facility] Active, Pending, and Scheduled Orders This section includes a listing of several types of active, pending, and scheduled orders, including clinic medications orders, diagnostic test orders, procedure orders and consult orders; where the start date of the order is 45 days before the date of the Encounter or 45 days after the date of theEncounter. The data comes from all [place] treatment facilities. Test Date/Time Test Type Test Details Facility Name May 16, 2024 02:21 PM Consult Order COMMUNITY CARE-UROLOGY Cons Strategic Marketing Specialist's Choice [facility] Lab Results: +/- 30 days of the encounter This section includes the Chemistry and Hematology Lab Results on record with [place] for the patient. Radiology Reports and Pathology Reports are provided separately, in subsequent sections. Lab Results This section contains the Chemistry/Hematology Results that were resulted 30 days before or 30 daysafter the date of the Encounter. Date/Time Source Result Type Result - Unit Interpretation Reference Range Comment May 12, 2024 07:53 AM [facility] METHADONE SCREEN Specimen Type: URINE Comment: MALCOLM test are qualitative, any L or H flags only indicate a [facility] alert was sent. Ordering Provider: DEE DEE WILSON Report Released Date/Time: May 11, 2024 03:52 PM Reporting Lab: [facility] [address] Performing Lab: [facility] [address] [facility] [address] METHADONE SCREEN None detected(Nega tive) L Negative May 12, 2024 07:53 AM [facility] ALCOHOL, ETHYL URINE PANEL Specimen Type: URINE [...] May 11, 2024 03:52 PM Reporting Lab: [address] [address] Performing Lab: [address] [address] ALCOHOL, ETHYL URINE NONE-DETECTED mg/dL NONE-DETEC AMANDA, cutoff = 10 mg/dL PH, MALCOLM 5.6 [pH] 4-10 CREATININE, MALCOLM 162.14 mg/dL >20 SP.GRAVITY, MALCOLM 1.021 H 1.00 3-1.02 0 May 12, 2024 07:53 AM [facility] AMPHETAMINES SCREEN PANEL Specimen Type: URINE Comment: [...] May 11, 2024 03:52 PM Reporting Lab: [address] [address] Performing Lab: [address] [address] AMPHETAMINES SCREEN NONE-DETECTED None-Detec amanda, Cutoff = 1000 ng/mL PH, MALCOLM 5.6 [pH] 4-10 CREATININE, MALCOLM 162.14 mg/dL >20 SP.GRAVITY, MALCOLM 1.021 H 1.00 3-1.02 0 May 12, 2024 07:53 AM [facility] FENTANYL SCREEN PANEL Specimen Type: URINE Comment: [...] May 11, 2024 03:52 PM Reporting Lab: [address] [address] Performing Lab: [address] [address] FENTANYL SCREEN NONE-DETECTE D ng/mL Negative: Cutoff = 1.00 ng/mL PH, MALCOLM 5.6 [pH] 4-10 CREATININE, MALCOLM 156.70 mg/dL >20 SP.GRAVITY, MALCOLM 1.020 1.00 3-1.02 0 May 12, 2024 07:53 AM [facility] BENZODIAZEPINES SCREEN PANEL Specimen Type: URINE Comment: [...] May 11, 2024 03:52 PM Reporting Lab: [address] [address] Performing Lab: [address] [address] BENZODIAZEPINES SCREEN NONE-DETECTED None-Detec amanda, Cutoff = 200 ng/mL PH, MALCOLM 5.6 [pH] 4-10 CREATININE, MALCOLM 162.14 mg/dL >20 SP.GRAVITY, MALCOLM 1.021 H 1.00 3-1.02 0 May 12, 2024 07:53 AM [facility] BUPRENORPHINE SCREEN PANEL Specimen Type: URINE Comment: [...] May 11, 2024 03:52 PM Reporting Lab: [address] [address] Performing Lab: [address] [address] BUPRENORPHINE (URINE) NONE-DETECTED None Detected, Cutoff = 10.0 ng/mL PH, MALCOLM 5.6 [pH] 4-10 CREATININE, MALCOLM 162.14 mg/dL >20 SP.GRAVITY, MALCOLM 1.021 H 1.00 3-1.02 0 May 12, 2024 07:53 AM [facility] CANNABINOIDS SCREEN PANEL Specimen Type: URINE Comment: [...] May 11, 2024 03:52 PM Reporting Lab: [address] [address] Performing Lab: [facility] [address] CANNABINOIDS SCREEN NONE-DETECTED None-Detec amanda,Cutoff = 50 ng/mL PH, MALCOLM 5.6 [pH] 4-10 CREATININE, MALCOLM 162.14 mg/dL >20 SP.GRAVITY, MALCOLM 1.021 H 1.00 3-1.02 0 May 12, 2024 07:53 AM [facility] COCAINE SCREEN PANEL Specimen Type: URINE Comment: [...] May 11, 2024 03:52 PM Reporting Lab: [place] [phone] Performing Lab: [place] [id number] COCAINE SCREEN NONE-DETECTED N one-Detec amanda,Cutoff = 300 ng/mL PH, MALCOLM 5.6 [pH] 4-10 CREATININE, MALCOLM 162.14 mg/dL >20 SP.GRAVITY, MALCOLM 1.021 H 1.00 3-1.02 0 May 12, 2024 07:53 AM [facility] OPIATES SCREEN PANEL Specimen Type: URINE Comment: [...] have been adulterated. Ordering Provider: DEE DEE IWLSON Report Released Date/Time: May 11, 2024 03:52 PM Reporting Lab: [place] [phone] Performing Lab: [address] [address] OPIATES SCREEN NONE-DETECTED N one-Detec amanda, Cutoff = 300 ng/mL PH, MALCOLM 5.6 [pH] 4-10 CREATININE, MALCOLM 162.14 mg/dL >20 SP.GRAVITY, MALCOLM 1.021 H 1.00 3-1.02 0 May 12, 2024 07:53 AM [facility] OXYCODONE SCREEN PANEL Specimen Type: URINE Comment: [...] May 11, 2024 03:52 PM Reporting Lab: [address] [address] Performing Lab: [address] [address] OXYCODONE SCREEN NONE-DETECTED None-Detec amanda, Cutoff = 100 ng/mL PH, MALCOLM 5.6 [pH] 4-10 CREATININE, MALCOLM 162.14 mg/dL >20 SP.GRAVITY, MALCOLM 1.021 H 1.00 3-1.02 0 May 12, 2024 07:47 AM [facility] HEMOGLOBIN A1C PANEL Specimen Type: BLOOD Comment: [...] Nov 11, 2023 05:57 AM Reporting Lab: [address] [address] Performing Lab: [facility] [place] [facility] [address] [facility] [address] HEMOGLOBIN A1C 5.0 4.0-5.6 May 12, 2024 07:47 AM [facility] MAGNESIUM Specimen Type: SERUM No comment entered. Ordering Provider: EHSAN OVALLES Report Released Date/Time: Nov 11, 2023 05:57 AM Reporting Lab: [facility] [place] [facility] [address] [facility] [address] Performing Lab: [facility] [address] [facility] [address] MAGNESIUM 2.0 mg/dL 1.6-2.6 May 12, 2024 07:47 AM [facility] URIC ACID Specimen Type: SERUM No comment entered. Ordering Provider: EHSAN OVALLES Report Released Date/Time: Nov 11, 2023 05:57 AM Reporting Lab: [facility] [place] [facility] [address] [facility] [address] Performing Lab: [facility] [address] [facility] [address] URIC ACID 5.6 mg/dL 3.5-7.2 May 12, 2024 07:47 AM [facility] LIPID PANEL FASTING Specimen Type: SERUM No comment entered. Ordering Provider: EHSAN OVALLES Report Released Date/Time: Nov 11, 2023 05:57 AM Reporting Lab: [facility] [place] [facility] [address] [facility] [address] Performing Lab: [facility]TR[facility]ITAL[facility] [address] [address] CHOLESTEROL 246 mg/dL H TRIGLYCERIDE 153 mg/dL H 0-150 LDL calculated 182 mg/dL H 0-129 CHOL/HDL 7.5 HDL CHOLESTEROL 33 mg/dL L 40-60 May 12, 2024 07:47 AM [facility] PSA Specimen Type: SERUM No comment entered. Ordering Provider: EHSAN OVALLES Report Released Date/Time: Nov 11, 2023 05:57 AM Reporting Lab: [facility] [place] [facility] [address] [facility] [address] Performing Lab: [place] [facility] [place] [facility] [address] [facility] [address] PSA 0.84 ng/mL 0.00-4.00 May 12, 2024 07:47 AM [facility] TSH Specimen Type: SERUM No comment entered. Ordering Provider: EHSAN OVALLES Report Released Date/Time: Nov 11, 2023 05:57 AM Reporting Lab: [facility] TRN [facility] [address] [facility] [address] Performing Lab: [facility] [address] [facility] [address] TSH 4.05 u[IU]/mL 0.35-5.00 May 12, 2024 07:47 AM [facility] LIVER FUNCTION Specimen Type: SERUM No comment entered. Ordering Provider: EHSAN OVALLES Report Released Date/Time: Nov 11, 2023 05:57 AM Reporting Lab: [facility] [address] [facility] [address] Performing Lab: [facility] [address] [facility] [address] PROTEIN,TOTAL 6.6 g/dL 6.0-8.3 ALBUMIN 3.8 g/dL 3.5-5.0 ALKALINE PHOSPHATASE 59 U/L 40-150 AST 20 U/L 5-34 ALT 37 U/L BILIRUBIN, TOTAL 0.4 mg/dL 0.2-1.2 May 12, 2024 07:47 AM [facility] BASIC METABOLIC PANEL (fasting) Specimen Type: SERUM No comment entered. Ordering Provider: EHSAN OVALLES Report Released Date/Time: Nov 11, 2023 05:57 AM Reporting Lab: [facility]N [facility] [address] [facility] [address] Performing Lab: [facility] [address] [address] UREA NITROGEN 22 mg/dL 7-25 GLUCOSE 88 mg/dL 65-100 SODIUM 141 mmol/L 135-145 POTASSIUM 4.4 mmol/L 3.5-5.0 CHLORIDE 108 mmol/L 100-110 CO2 23 meq/L 20-30 CREATININE, Serum 1.09 mg/dL 0.50-1.40 eGFR(CKD-EPI 2020) 82 mL/min >60 May 12, 2024 07:47 AM [facility] CBC AND DIFF (AUTO) Specimen Type: BLOOD No comment entered. Ordering Provider: EHSAN OVALLES Report Released Date/Time: Nov 11, 2023 05:57 AM Reporting Lab: [facility] [address] [facility] [address] Performing Lab: [facility] [address] [facility] [address] WBC 8.27 10*3/uL 4.50-11.00 RBC 5.05 10*6/uL [...] and tobacco- related health factors from the [place] facility where the Encounter took place. Current Smoking Status This section includes the most current smoking, or tobacco-related health factor, from the [place] facility where the Encounter took place. Date/Time Current Smoking Status Comment Facil ity May 12, 2023 10:46 AM [place]-TOBACCO NEVER USED [facility] Tobacco Use History This section includes a history of the smoking, or tobacco-related health factors, that were collected on or before the date of the Encounter. The data comes from the [place] facility where the Encounter took place. Date/Time Smoking Status/Tobacco Use Comment F [email or web address] Oct 20, 2015 10:30 AM LIFETIME NON-TOBACCO USER [facility] Sep 19, 2009 11:13 AM LIFETIME NON-TOBACCO USER [facility] Advance Directives: All historical and current Section Date Range: From patient's date of to the date document was created. This section includes ALL of a patient's completed or amended [place] Advance and Rescinded Directives. The entries below indicate that a directive exists for the patient, but an actual copy is not included with this document. The data comes from all [place] facilities. Date Advance Directives Provider Source Mar 22, 2018 ADVANCE DIRECTIVE JASWANT DICKINSON [facility] Encounter Notes: All associated encounter notes This section contains the clinical notes associated to the Encounter. Date/Time Encounter Note(s) Provider Source May 04, 2024 10:57 AM PRIMARY CARE OUTPA TIENT NOTE: LOCAL TITLE: AMBULATORY/OUTPATIENT CARE NOTE STANDARD TITLE: PRIMARY CARE OUTPATIENT NOTE DATE OF NOTE: MAY 04, 2024@10:57 ENTRY DATE: MAY 04, 2024@10:58:08 AUTHOR: HILDA BLAKE EXP COSIGNER: URGENCY: STATUS: COMPLETED AMBULATORY/OUTPATIENT CARE NOTE Has ADDENDA Upon going through May it appears was scheduled in wrong clinic, [facility] states Spine inj clinic for Right L3 and Left S1 TFE, however he was scheduled into [facility], can you please reschedule into correct clinic, thank you. /dheeraj/ Hilda Blake RN Med Rehab Signed: 05/04/2024 10:59 Receipt Acknowledged By: 05/04/2024 11:23 /dheeraj/ KALEN CRUZ ADVANCED VOCATIONAL TRAINER 05/04/2024 ADDENDUM STATUS: COMPLETED If calls back please inform that 05/17 has been cx due to being schedualed inccorectly, he needs to be schedualed in spinal injection with .Appt available on 07/27 /eileen CRUZ ADVANCED VOCATIONAL TRAINER Signed: 05/04/2024 11:25 HILDA BLAKE [place] [facility]
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
--- OUTSIDE RECORDS SUMMARY | 2024-08-18 10:00 | XMS_ITS ---
Author Name [facility] [place] Address [address] [place] [address] Care Team Providers Care Test Examiner Name Role Phone EHSAN OVALLES Primary Care [...] PART A December 08, 2013 PART A [id number] BRIGID RAMOS PATIENT MEDICARE (WNR) MEDICARE ([place]) PART A December 08, 2013 PART A [id number] [phone] BRIGID RAMOS PATIENT Selected Encounter This section includes the information on record at [place] for the Encounter. Date/Time Encounter Type Encounter Description Reason Pro vider Source Mar 23, 2024 09:26 AM Outpatient Encounter PAIN CLINIC IHE Encounter Template Text not used by [place] Plan of Treatment: Future Appointments (+ 6 [...] 20 appointments. The data comes from all [place] treatment facilities. Appointment Date/Time Appointment Type Appointme nt Facility Name Mar 24, 2024 01:00 PM AMBULATORY - [place]ICINE [place] [facility] [place] [facility] Apr 06, 2024 10:00 AM AMBULATORY - MEDICINE [place] [facility] [place] [facility] May 24, 2024 12:00 PM AMBULATORY - NONE [place] [facility] [place] [facility] May 31, 2024 11:30 AM AMBULATORY - MEDICINE [place] [facility] [place] [facility] Jun 03, 2024 09:50 AM AMBULATORY - MEDICINE [place] [facility] [place] [facility] Jun 07, 2024 11:30 AM AMBULATORY - NONE [place] [facility] [place] [facility] Jul 27, 2024 02:30 PM AMBULATORY - REHAB MEDICIN E [place] [facility] [place] [facility] Aug 30, 2024 11:00 AM AMBULATORY - MEDICINE [place] [facility] [place] [facility] Sep 14, 2024 01:00 PM [facility] Active, Pending, and Scheduled Orders This section includes a listing of several types of active, pending, and scheduled orders, including clinic medications orders, diagnostic test orders, procedure orders and consult orders; where the start date of the order is 45 days before the date of the Encounter or 45 days after the date of theEncounter. The data comes from all [facility]. Test Date/Time Test Type Test Details Facility Name Feb 15, 2024 02:34 PM Consult Order COMMUNITY CARE-COLONOSCOPY SCREENING Cons Certified Wellness Program Manager's Choice [facility] Social History: Smoking Status (Most current) [...] Mar 22, 2018 ADVANCE DIRECTIVE JASWANT DICKINSON [facility] Encounter Notes: All associated encounter notes This section contains the clinical notes associated to the Encounter. Date/Time Encounter Note(s) Provider Source Mar 23, 2024 09:26 AM TELEPHONE ENCOUNTE R NOTE: LOCAL TITLE: TELEPHONE NOTE/SPECIALTY CLINIC STANDARD TITLE: TELEPHONE ENCOUNTER NOTE DATE OF NOTE: MAR 23, 2024@09:26 ENTRY DATE: MAR 23, 2024@09:26:14 AUTHOR: STALIN VIGIL EXP COSIGNER: URGENCY: STATUS: COMPLETED Called and spoke with pt to remind them that they have a VVC appt with the Pain clinic on 03/24/2024 at 1300 /es/ STALIN VIGIL ADVANCED FLAME BRAZING MACHINE OPERATOR Signed: 03/23/2024 09:27 STALIN VIGIL [facility]
--- OUTSIDE RECORDS SUMMARY | 2024-08-18 10:00 | XMS_ITS | Encounter Summary ---
Author Name [facility] [place] Address [address] [place] [address] Care Team Providers Care Market Risk Manager Name Role Phone EHSAN OVALLES Primary [...] PART A December 08, 2013 PART A [id number] BRIGID RAMOS PATIENT MEDICARE (WNR) MEDICARE ([place]) PART A December 08, 2013 PART A [id number] BRIGID RAMOS PATIENT Selected Encounter This section includes the information on record at [place] for the Encounter. Date/Time Encounter Type Encounter Description Reason Pro vider Source Jan 12, 2024 12:00 AM Outpatient Encounter EVENT (HISTORICAL) IHE Encounter Template [...] 09:30 AM AMBULATORY - REHAB MEDICIN E [place] Feb 23, 2024 09:00 AM AMBULATORY - [place]ICINE [place] [facility] [place] [facility] Feb 25, 2024 01:00 PM AMBULATORY - REHAB MEDICIN [place] [facility] [place] [facility] Mar 21, 2024 10:00 AM AMBULATORY - MEDICINE [place] [facility] [place] [facility] Mar 24, 2024 01:00 PM AMBULATORY - MEDICINE [place] [facility] [facility] Apr 06, 2024 10:00 AM AMBULATORY - MEDICINE [place] [facility] May 24, 2024 12:00 PM AMBULATORY - NONE [place] [facility] [place] [facility] May 31, 2024 11:30 AM AMBULATORY - MEDICINE [place] [facility] Jun 03, 2024 09:50 AM AMBULATORY - MEDICINE [facility] [place] [facility] Jun 07, 2024 11:30 AM [facility] Active, Pending, and Scheduled Orders This section includes a listing of several types of active, pending, and scheduled orders, including clinic medications orders, diagnostic test orders, procedure orders and consult orders; where the start date of the order is 45 days before the date of the Encounter or 45 days after the date of theEncounter. The data comes from all [facility]. Test Date/Time Test Type Test Details Facility Name Feb 15, 2024 02:34 PM Consult Order COMMUNITY CARE-COLONOSCOPY SCREENING Cons Dry Cleaning Manager's Choice [facility] Social History: Smoking Status (Most current) [...] Hafsa armstrong May 12, 2023 10:46 AM [place]-TO[place]AC[place] NEVER USED [facility] Tobacco Use History This section includes [...] Mar 22, 2018 ADVANCE DIRECTIVE JASWANT DICKINSON [facility] Encounter Notes: All associated encounter notes This section contains the clinical notes associated to the Encounter. Date/Time Encounter Note(s) Provider Source Jan 12, 2024 12:00 AM NONVA CONSULT: LOCAL TITLE: COMMUNITY CARE-CONSULT RESULT NOTE STANDARD TITLE: NONVA CONSULT DATE OF NOTE: JAN 12, 2024 ENTRY DATE: APR 07, 2024@07:29:27 AUTHOR: JERONIMO LEVI EXP COSIGNER: URGENCY: STATUS: COMPLETED VistA Imaging - Scanned Document SCANNED DOCUMENT SIGNATURE NOT REQUIRED Electronically Filed: 04/07/2024 by: JERONIMO JAMES [facility]
--- OUTSIDE RECORDS SUMMARY | 2024-08-18 10:00 | XMS_ITS ---
Author Name [place] Address [address] [place] [address] Care Team Providers Care Business Systems Manager Name Role Phone EHSAN OVALLES Primary [...] PART A December 08, 2013 PART A [id number] KONRADTASHIACRISTY DAMICOBRIGID Lantigua PATIENT MEDICARE (WNR) MEDICARE (M) PART A December 08, 2013 PART A [id number] 62A KONRADBRIGID KRAMER PATIENT Selected Encounter This section includes the information on record at [place] for the Encounter. Date/Time Encounter Type Encounter Description Reason Provider Source Mar 01, 2024 03:18 PM MTMS BY PHARM VENTILATING EQUIPMENT INSTALLER 15 MIN TELEPHONE/ANCILLAR Y ICD-10-CM M25.562 Pain in left knee TEP,SOPHOUS TRAVIS IHE Encounter Template Text not used by [place] Assessments - Encounter Diagnoses This section includes the primary and secondary diagnoses documented for the Encounter. Date/Time Primary/Secondary Diagnosis Diagnosis Name Provider Source Mar 01, 2024 03:18 PM PRIMARY Pain in left knee TEP,SOPHOUS TRAVIS [place] [facility] [place] [facility] Plan of Treatment: Future Appointments (+ 6 months) and Future Tests (+/- 45 days) The Plan of Treatment section includes future care activities for the patient [facility] [place] [facility] This section includes future appointments and future orders which are active, pending or scheduled. Future Appointments This section includes appointments that were scheduled to occur 6 months from the date of the Encounter, up to a maximum of 20 appointments. The data comes from all [facility]. Appointment Date/Time Appointment Type Appointme nt Facility Name Mar 21, 2024 10:00 AM AM[place]ULATORY - [place]ICINE [place] [facility] [place] [facility] Mar 24, 2024 01:00 PM AM[place]ORY [place]ICINE [place] [facility] Apr 06, 2024 10:00 AM [place]ORY [place]ICINE [place] [facility] May 24, 2024 12:00 PM AMBULATORY - NONE [place] [facility] [place] [facility] May 31, 2024 11:30 AM AM[place]ORY [place]ICINE [place] [facility] Jun 03, 2024 09:50 AM AM[place]ORY - [place]ICINE [place] [facility] Jun 07, 2024 11:30 AM AMBULATORY - NONE [place] [facility] [place] [facility] Jul 27, 2024 02:30 PM AMBULATORY - REHAB MEDICIN E [place] [facility] [place] [facility] Aug 30, 2024 11:00 AM AM[place]ORY [place]ICINE [place] [facility] Active, Pending, and Scheduled Orders This section includes a listing of several types of active, pending, and scheduled orders, including clinic medications orders, diagnostic test orders, procedure orders and consult orders; where the start date of the order is 45 days before the date of the Encounter or 45 days after the date of theEncounter. The data comes from all [facility]. Test Date/Time Test Type Test Details Facility Name Feb 15, 2024 02:34 PM Consult Order COMMUNITY CARE-COLONOSCOPY SCREENING Cons Rotary Kiln Operator's Choice [place] [facility] [place] [facility] Social History: Smoking Status (Most current) and [...] 12, 2023 10:46 AM VA-TOBACCO NEVER USED [facility] Tobacco Use History This section includes a history of the smoking, or tobacco-related health factors, that were collected on or before the date of the Encounter. The data comes from the [place] facility where the Encounter took place. Date/Time Smoking Status/Tobacco Use Comment F acility Oct 20, 2015 10:30 AM LIFETIME NON-TOBACCO USER [facility] Sep 19, 2009 11:13 AM LIFETIME NON-TOBACCO USER [facility] Advance Directives: All historical and current [...] Mar 22, 2018 ADVANCE DIRECTIVE TEENAJASWANT CARDENAS [facility] Encounter Notes: All associated encounter notes This section contains the clinical notes associated to the Encounter. Date/Time Encounter Note(s) Provider Source Mar 24, 2024 01:20 PM ADDENDUM: LOCAL TITLE: Addendum STANDARD TITLE: ADDENDUM DATE OF NOTE: MAR 24, 2024@13:20:05 ENTRY DATE: MAR 24, 2024@13:20:06 AUTHOR: JESSE TIPTON EXP COSIGNER: URGENCY: STATUS: COMPLETED FYI to physiatry PA regarding above. Pt will be calling [facility] [employer] to get an appt (no one has apparently contacted him). His pain is still bothersome but stabilized, managing ok. Please note: as of yet there is no note in chart from the 02/24 physiatry visit. /dheeraj/ Jesse Tipton MD STAFF PHYSICIAN Signed: 03/24/2024 13:23 Receipt Acknowledged By: 03/25/2024 10:13 /dheeraj/ HUMAIRA HUSSEIN [facility] ====== --- Original Document --- 03/01/24 PAIN CLINIC NOTE: Patient sent secure message on 03/01/2024: Sultana, After my appointment with Dr. Hussein last week, my knee pain has increased significantly to the point where my medication isn't touching it. Dr. Hussein evaluated my my knee and put my knee through a series of physical tests and thinks I have a torn meniscus. The Pain ever since has been intolerable. Can you please call me so we can discuss pain management? Im waiting to get into [facility]. ====== Had a phone conversation with patient on 03/01/24 at 3:18pm for 15 minutes: [place] report that one week ago he had left knee exam done by [place] It Assistant in which he states was put through some exercise exam of the left knee and that ever since he had exacerbation of left knee pain. He was informed that he may have a torn meniscus and will be referred to Ortho. He rates his pain intensity of left knee since the exam at a 9 and sometimes a 10; even sitting down and resting does not relieve the pain. He reports his current pain regimen of taking pregabalin 100mg twice daily, belbuca 150mcg every 8 hours, and naproxen 500mg twice daily all used to help with pain before this exam. But since the exam the current pain regimen is not touching the pain and diclofenac 1% topical gel doesn't help either. Upon reviewing previous note by pain physician on 12/23/2023 that if pain is not well controlled that he can increase to belbuca 300mcg twice daily; this dose he was previously on before. He currently has belbuca 150mcg taking one film three times per day; informed him that he can begin to take 2 films of belbuca 150mcg twice a day which equal to 300mcg twice daily; he has enough of belbuca 150mcg to last until 03/09/[address] Tipton will he back. He agrees to this plan. /dheeraj/ FATIMAH GILMORE, PHARM.D CLINICAL PHARMACIST PRACTITIONER Signed: 03/01/2024 15:52 Receipt Acknowledged By: 03/02/2024 12:43 /dheeraj/ JARAD SANDERSON MD PHYSICIAN for JESSE SUGGS [place] [facility] [place] [facility] Mar 01, 2024 03:18 PM [facility] NOTE: LOCAL TITLE: PAIN CLINIC NOTE STANDARD TITLE: PAIN MEDICINE OUTPATIENT NOTE DATE OF NOTE: MAR 01, 2024@15:18 ENTRY DATE: MAR 01, 2024@15:47:13 AUTHOR: FATIMAH GILMORE EXP COSIGNER: URGENCY: STATUS: COMPLETED PAIN CLINIC NOTE Has ADDENDA Patient sent secure message on 03/01/2024: [place], After my appointment with Dr. Hussein last week, my knee pain has increased significantly to the point where my medication isn't touching it. Dr. Hussein evaluated my my knee and put my knee through a series of physical tests and thinks I have a torn meniscus. The Pain ever since has been intolerable. Can you please call me so we can discuss pain management? Im waiting to get into [facility]. ====== Had a phone conversation with patient on 03/01/24 at 3:18pm for 15 minutes: report that one week ago he had left knee exam done by [place] It Assistant in which he states was put through some exercise exam of the left knee and that ever since he had exacerbation of left knee pain. He was informed that he may have a torn meniscus and will be referred to Ortho. He rates his pain intensity of left knee since the exam at a 9 and sometimes a 10; even sitting down and resting does not relieve the pain. He reports his current pain regimen of taking pregabalin 100mg twice daily, belbuca 150mcg every 8 hours, and naproxen 500mg twice daily all used to help with pain before this exam. But since the exam the current pain regimen is not touching the pain and diclofenac 1% topical gel doesn't help either. Upon reviewing previous note by pain physician on 12/23/2023 that if pain is not well controlled that he can increase to belbuca 300mcg twice daily; this dose he was previously on before. He currently has belbuca 150mcg taking one film three times per day; informed him that he can begin to take 2 films of belbuca 150mcg twice a day which equal to 300mcg twice daily; he has enough of belbuca 150mcg to last until 03/09/[address] Tipton will he back. He agrees to this plan. /dheeraj/ FATIMAH GILMORE, PHARM.D CLINICAL PHARMACIST PRACTITIONER Signed: 03/01/2024 15:52 Receipt Acknowledged By: 03/02/2024 12:43 /dheeraj/ JARAD SANDERSON MD PHYSICIAN for JESSE TIPTON 03/24/2024 ADDENDUM STATUS: COMPLETED FYI to physiatry PA regarding above. Pt will be calling [facility] [employer] to get an appt (no one has apparently contacted him). His pain is still bothersome but stabilized, managing ok. Please note: as of yet there is no note in chart from the 02/24 physiatry visit. /es/ Jesse Tipton MD STAFF PHYSICIAN Signed: 03/24/2024 13:23 Receipt Acknowledged By: * AWAITING SIGNATURE * HUMAIRA HUSSEIN,FATIMAH MUNGUIA [facility]
--- OUTSIDE RECORDS SUMMARY | 2024-08-18 10:01 | XMS_ITS | Encounter Summary ---
Author Name [facility] [place] Organization [place] Address [address] [place] [address] Care Team Providers Care School Library Media Program Director Name Role Phone EHSAN OVALLES Primary [...] PART A December 08, 2013 PART A [id number] 62A KONRADDENTONMartin DAMICOBRIGID Lantigua PATIENT MEDICARE (WNR) MEDICARE (M) PART A December 08, 2013 PART A [id number] 62A [phone] BRIGID RAMOS PATIENT Selected Encounter This section includes the [place] on [place] at [place] for the Encounter. Date/Time Encounter Type Encounter Description Reason Pro vider Source May 20, 2024 08:54 AM Outpatient Encounter PM&RS PHYSICIAN IHE Encounter Template Text not used by [place] Plan of Treatment: Future Appointments (+ 6 [...] 20 appointments. The data comes from all [place] treatment facilities. Appointment Date/Time Appointment Type Appointme nt Facility Name May 24, 2024 12:00 PM AMBULATORY - NONE [place] [facility] [place] [place] [facility] May 31, 2024 11:30 AM AMBULATORY - [place]ICINE [place] [facility] Jun 03, 2024 09:50 AM AMBULATORY - MEDICINE [place] [facility] [facility] Jun 07, 2024 11:30 AM AMBULATORY - NONE [place] [facility] [place] [facility] Jul 27, 2024 02:30 PM AMBULATORY - REHAB MEDICIN E [place] [facility] [place] [facility] Aug 30, 2024 11:00 AM AMBULATORY - MEDICINE [place] [facility] Sep 14, 2024 01:00 PM AMBULATORY - REHAB MEDICIN E [place] [facility] [place] [facility] Active, Pending, and Scheduled Orders This section includes a listing of several types of active, pending, and scheduled orders, including clinic medications orders, diagnostic test orders, procedure orders and consult orders; where the start date of the order is 45 days before the date of the Encounter or 45 days after the date of theEncounter. The data comes from all [place] treatment facilities. Test Date/Time Test Type Test Details Facility Name May 16, 2024 02:21 PM Consult Order COMMUNITY CARE-UROLOGY Cons Quality Control Lead's Choice [facility] Lab Results: +/- 30 days of the encounter This section includes the Chemistry and Hematology Lab Results on record with [place] for the patient. Radiology Reports and Pathology Reports are provided separately, in subsequent sections. Lab Results This section contains the Chemistry/Hematology Results that were resulted 30 days before or 30 daysafter the date of the Encounter. Date/Time Source Result Type Result - Unit Interpretation Reference Range Comment May 12, 2024 07:53 AM [facility] METHADONE SCREEN Specimen Type: URINE Comment: MALCOLM test are qualitative, any L or H flags only indicate a [facility] alert was sent. Ordering Provider: DEE DEE WILSON Report Released Date/Time: May 11, 2024 03:52 PM Reporting Lab: [facility] [address] Performing Lab: [facility] [address] [facility] [address] METHADONE SCREEN None detected(Nega tive) L Negative May 12, 2024 07:53 AM [facility] ALCOHOL, ETHYL URINE PANEL Specimen Type: [...] May 11, 2024 03:52 PM Reporting Lab: [address] [address] Performing Lab: [address] [address] ALCOHOL, ETHYL URINE NONE-DETECTED mg/dL NONE-DETEC SHAHZAD, cutoff = 10 mg/dL PH, MALCOLM 5.6 [pH] 4-10 CREATININE, MALCOLM 162.14 mg/dL >20 SP.GRAVITY, MALCOLM 1.021 H 1.00 3-1.02 0 May 12, 2024 07:53 AM [facility] AMPHETAMINES SCREEN PANEL Specimen Type: URINE [...] May 11, 2024 03:52 PM Reporting Lab: [address] [address] Performing Lab: [address] [address] AMPHETAMINES SCREEN NONE-DETECTED None-Detec shahzad, Cutoff = 1000 ng/mL PH, MALCOLM 5.6 [pH] 4-10 CREATININE, MALCOLM 162.14 mg/dL >20 SP.GRAVITY, MALCOLM 1.021 H 1.00 3-1.02 0 May 12, 2024 07:53 AM [facility] FENTANYL SCREEN PANEL Specimen Type: URINE [...] May 11, 2024 03:52 PM Reporting Lab: [address] [address] Performing Lab: [address] [address] FENTANYL SCREEN NONE-DETECTE D ng/mL Negative: Cutoff = 1.00 ng/mL PH, MALCOLM 5.6 [pH] 4-10 CREATININE, MALCOLM 156.70 mg/dL >20 SP.GRAVITY, MALCOLM 1.020 1.00 3-1.02 0 May 12, 2024 07:53 AM [facility] BENZODIAZEPINES SCREEN PANEL Specimen Type: URINE [...] May 11, 2024 03:52 PM Reporting Lab: [address] [address] Performing Lab: [address] [address] BENZODIAZEPINES SCREEN NONE-DETECTED None-Detec shahzad, Cutoff = 200 ng/mL PH, MALCOLM 5.6 [pH] 4-10 CREATININE, MALCOLM 162.14 mg/dL >20 SP.GRAVITY, MALCOLM 1.021 H 1.00 3-1.02 0 May 12, 2024 07:53 AM [facility] BUPRENORPHINE SCREEN PANEL Specimen Type: URINE [...] May 11, 2024 03:52 PM Reporting Lab: [address] [address] Performing Lab: [address] [address] BUPRENORPHINE (URINE) NONE-DETECTED None Detected, Cutoff = 10.0 ng/mL PH, MALCOLM 5.6 [pH] 4-10 CREATININE, MALCOLM 162.14 mg/dL >20 SP.GRAVITY, MALCOLM 1.021 H 1.00 3-1.02 0 May 12, 2024 07:53 AM [facility] CANNABINOIDS SCREEN PANEL Specimen Type: URINE [...] May 11, 2024 03:52 PM Reporting Lab: [address] [address] Performing Lab: [place] [address] [address] CANNABINOIDS SCREEN NONE-DETECTED None-Detec shahzad,Cutoff = 50 ng/mL PH, MALCOLM 5.6 [pH] 4-10 CREATININE, MALCOLM 162.14 mg/dL >20 SP.GRAVITY, MALCOLM 1.021 H 1.00 3-1.02 0 May 12, 2024 07:53 AM [facility] COCAINE SCREEN PANEL Specimen Type: URINE [...] May 11, 2024 03:52 PM Reporting Lab: [place] [phone] Performing Lab: [place] [id number] COCAINE SCREEN NONE-DETECTED N one-Detec shahzad,Cutoff = 300 ng/mL PH, MALCOLM 5.6 [pH] 4-10 CREATININE, MALCOLM 162.14 mg/dL >20 SP.GRAVITY, MALCOLM 1.021 H 1.00 3-1.02 0 May 12, 2024 07:53 AM [facility] OPIATES SCREEN PANEL Specimen Type: URINE [...] May 11, 2024 03:52 PM Reporting Lab: [place] [phone] Performing Lab: [address] [address] OPIATES SCREEN NONE-DETECTED N one-Detec shahzad, Cutoff = 300 ng/mL PH, MALCOLM 5.6 [pH] 4-10 CREATININE, MALCOLM 162.14 mg/dL >20 SP.GRAVITY, MALCOLM 1.021 H 1.00 3-1.02 0 May 12, 2024 07:53 AM [facility] OXYCODONE SCREEN PANEL Specimen Type: URINE [...] May 11, 2024 03:52 PM Reporting Lab: [address] [address] Performing Lab: [address] [address] OXYCODONE SCREEN NONE-DETECTED None-Detec shahzad, Cutoff = 100 ng/mL PH, MALCOLM 5.6 [pH] 4-10 CREATININE, MALCOLM 162.14 mg/dL >20 SP.GRAVITY, MALCOLM 1.021 H 1.00 3-1.02 0 May 12, 2024 07:47 AM [facility] HEMOGLOBIN A1C PANEL Specimen Type: BLOOD [...] Nov 11, 2023 05:57 AM Reporting Lab: [address] [address] Performing Lab: [facility] [place] [facility] [address] [facility] [address] HEMOGLOBIN A1C 5.0 4.0-5.6 May 12, 2024 07:47 AM [facility] MAGNESIUM Specimen Type: SERUM No comment entered. Ordering Provider: EHSAN OVALLES Report Released Date/Time: Nov 11, 2023 05:57 AM Reporting Lab: [facility] [place] [facility] [address] [facility] [address] Performing Lab: [facility]ENTRN [facility] [address] [facility] [address] MAGNESIUM 2.0 mg/dL 1.6-2.6 May 12, 2024 07:47 AM [facility] URIC ACID Specimen Type: SERUM No comment entered. Ordering Provider: EHSAN OVALLES Report Released Date/Time: Nov 11, 2023 05:57 AM Reporting Lab: [facility] [place] [facility] [address] [facility] [address] Performing Lab: [facility]ENTRN [facility] [address] [facility] [address] URIC ACID 5.6 mg/dL 3.5-7.2 May 12, 2024 07:47 AM [facility] LIPID PANEL FASTING Specimen Type: SERUM No comment entered. Ordering Provider: EHSAN OVALLES Report Released Date/Time: Nov 11, 2023 05:57 AM Reporting Lab: [facility] [place] [facility] [address] [facility] [address] Performing Lab: [facility]SDENTRN [facility]PITALUSETS [address] [address] CHOLESTEROL 246 mg/dL H TRIGLYCERIDE 153 mg/dL H 0-150 LDL calculated 182 mg/dL H 0-129 CHOL/HDL 7.5 HDL CHOLESTEROL 33 mg/dL L 40-60 May 12, 2024 07:47 AM [facility] PSA Specimen Type: SERUM No comment entered. Ordering Provider: EHSAN OVALLES Report Released Date/Time: Nov 11, 2023 05:57 AM Reporting Lab: [facility] [place] [place] [facility] [address] [facility] [address] Performing Lab: [place] [facility] [address] [facility] [address] PSA 0.84 ng/mL 0.00-4.00 May 12, 2024 07:47 AM [facility]ITALRE[facility]N [facility] TSH Specimen Type: SERUM No comment entered. Ordering Provider: EHSAN OVALLES Report Released Date/Time: Nov 11, 2023 05:57 AM Reporting Lab: [facility]ITALRL TRN [facility] [address] [facility] [address] Performing Lab: [facility]ITALRELIZA [facility]N [facility] [address] [facility] [address] TSH 4.05 u[IU]/mL 0.35-5.00 May 12, 2024 07:47 AM [facility] LIVER FUNCTION Specimen Type: SERUM No comment entered. Ordering Provider: EHSAN OVALLES Report Released Date/Time: Nov 11, 2023 05:57 AM Reporting Lab: [facility]ITALRELI[facility]N [facility] [address] [facility] [address] Performing Lab: [facility]ITALRELIZA [facility]N [facility] [address] [facility] [address] PROTEIN,TOTAL 6.6 g/dL 6.0-8.3 ALBUMIN 3.8 g/dL 3.5-5.0 ALKALINE PHOSPHATASE 59 U/L 40-150 AST 20 U/L 5-34 ALT 37 U/L BILIRUBIN, TOTAL 0.4 mg/dL 0.2-1.2 May 12, 2024 07:47 AM [facility] BASIC METABOLIC PANEL (fasting) Specimen Type: SERUM No comment entered. Ordering Provider: EHSAN OVALLES Report Released Date/Time: Nov 11, 2023 05:57 AM Reporting Lab: [facility]ITALRL TRN [facility] [address] [facility] [address] Performing Lab: [facility]ITALRELIZA [facility]ITALN [facility]PITALUSETS [address] [address] UREA NITROGEN 22 mg/dL 7-25 GLUCOSE 88 mg/dL 65-100 SODIUM 141 mmol/L 135-145 POTASSIUM 4.4 mmol/L 3.5-5.0 CHLORIDE 108 mmol/L 100-110 CO2 23 meq/L 20-30 CREATININE, Serum 1.09 mg/dL 0.50-1.40 eGFR(CKD-EPI 2020) 82 mL/min >60 May 12, 2024 07:47 AM [facility] CBC AND DIFF (AUTO) Specimen Type: BLOOD No comment entered. Ordering Provider: EHSAN OVALLES Report Released Date/Time: Nov 11, 2023 05:57 AM Reporting Lab: [facility] [address] [facility] [address] Performing Lab: [facility] [address] [facility] [address] WBC 8.27 10*3/uL 4.50-11.00 RBC 5.05 10*6/uL [...] and tobacco- related health factors from the [place] facility where the Encounter took place. Current Smoking Status This section includes the most current smoking, or tobacco-related health factor, from the [place] facility where the Encounter took place. Date/Time Current Smoking Status Comment Jose ity May 12, 2023 10:46 AM VA-TOBACCO NEVER USED [facility] Tobacco Use History This section includes a history of the smoking, or tobacco-related health factors, that were collected on or before the date of the Encounter. The data comes from the [place] facility where the Encounter took place. Date/Time Smoking Status/Tobacco Use Comment F acility Oct 20, 2015 10:30 AM LIFETIME NON-TOBACCO USER [facility] Sep 19, 2009 11:13 AM LIFETIME NON-TOBACCO USER [facility] Advance Directives: All historical and current Section Date Range: From patient's date of to the date document was created. This section includes ALL of a patient's completed or amended [place] Advance and Rescinded Directives. The entries below indicate that a directive exists for the patient, but an actual copy is not included with this document. The data comes from all [place] facilities. Date Advance Directives Provider Source Mar 22, 2018 ADVANCE DIRECTIVE JASWANT DICKINSON [facility] Encounter Notes: All associated encounter notes This section contains the clinical notes associated to the Encounter. Date/Time Encounter Note(s) Provider Source May 20, 2024 08:54 AM ADMINISTRATIVE NOT E: LOCAL TITLE: ADMINISTRATIVE NOTE STANDARD TITLE: ADMINISTRATIVE NOTE DATE OF NOTE: MAY 20, 2024@08:54 ENTRY DATE: MAY 20, 2024@08:54:46 AUTHOR: ROBERTO AVILA EXP COSIGNER: URGENCY: STATUS: COMPLETED RTC 03/26/2024 dispositioned due to veterans failure to respond to all contact efforts per department standards. Dispositioned on 05/20/2024. /dheeraj/ ROBERTO AVILA ADVANCED AUTO INSPECTOR Signed: 05/20/2024 08:55 ROBERTO AVILA [facility]
--- OUTSIDE RECORDS SUMMARY | 2024-08-18 10:01 | XMS_ITS ---
Author Name [facility] [place] [facility] [place] Address [address] [place] [address] Care Team Providers Care Assistant Casino Shift Manager Name Role Phone EHSAN OVALLES Primary [...] PART A December 08, 2013 PART A [id number] BRIGID RAMOS PATIENT MEDICARE (WNR) MEDICARE (M) PART A December 08, 2013 PART A [id number] BRIGID RAMOS PATIENT Selected Encounter This section includes the information on record at [place] for the Encounter. Date/Time Encounter Type Encounter Description Reason Pro vider Source May 16, 2024 02:02 PM Outpatient Encounter PRIMARY CARE/MEDICINE IHE Encounter [...] 24, 2024 12:00 PM AM[place] [place]ONE [place] [facility] May 31, 2024 11:30 AM AM[facility]ULATORY [place] [facility]ICINE [facility] Jun 03, 2024 09:50 AM AM[facility]UL[facility]INE [facility] Jun 07, 2024 11:30 AM AM[facility]UL[facility] [place] NONE [facility] Jul 27, 2024 02:30 PM AMBULATORY - [facility] MEDICIN E [facility] Aug 30, 2024 11:00 AM AM[place] [place] [facility] Sep 14, 2024 01:00 PM AMBULATORY - [facility]IC[facility] E [facility] Active, Pending, and Scheduled Orders This section includes a listing of several types of active, pending, and scheduled orders, including clinic medications orders, diagnostic test orders, procedure orders and consult orders; where the start date of the order is 45 days before the date of the Encounter or 45 days after the date of theEncounter. The data comes from all [place] treatment facilities. Test Date/Time Test Type Test Details Facility Name May 16, 2024 02:21 PM Consult Order COMMUNITY CARE-UROLOGY Cons Block Out Machine Operator's [facility] Lab Results: +/- 30 days of [...] Range Comment May 12, 2024 07:53 AM [facility] METHADONE SCREEN Specimen Type: URINE Comment: MALCOLM test are qualitative, any L or H flags only indicate a [facility] alert was sent. Ordering Provider: DEE DEE WILSON Report Released Date/Time: May 11, 2024 03:52 PM Reporting [facility] [address] Performing Lab: [facility] [address] [facility] [address] METHADONE SCREEN None detected(Nega tive) L Negative May 12, 2024 07:53 AM [facility] ALCOHOL, ETHYL URINE PANEL Specimen Type: [...] May 11, 2024 03:52 PM Reporting Lab: [address] [address] Performing Lab: [address] [address] ALCOHOL, ETHYL URINE NONE-DETECTED mg/dL NONE-DETEC SHAHZAD, cutoff = 10 mg/dL PH, MALCOLM 5.6 [pH] 4-10 CREATININE, MALCOLM 162.14 mg/dL >20 SP.GRAVITY, MALCOLM 1.021 H 1.00 3-1.02 0 May 12, 2024 07:53 AM [facility] AMPHETAMINES SCREEN PANEL Specimen Type: URINE [...] May 11, 2024 03:52 PM Reporting Lab: [address] [address] Performing Lab: [address] [address] AMPHETAMINES SCREEN NONE-DETECTED None-Detec shahzad, Cutoff = 1000 ng/mL PH, MALCOLM 5.6 [pH] 4-10 CREATININE, MALCOLM 162.14 mg/dL >20 SP.GRAVITY, MALCOLM 1.021 H 1.00 3-1.02 0 May 12, 2024 07:53 AM [facility] FENTANYL SCREEN PANEL Specimen Type: URINE [...] May 11, 2024 03:52 PM Reporting Lab: [address] [address] Performing Lab: [address] [address] FENTANYL SCREEN NONE-DETECTE D ng/mL Negative: Cutoff = 1.00 ng/mL PH, MALCOLM 5.6 [pH] 4-10 CREATININE, MALCOLM 156.70 mg/dL >20 SP.GRAVITY, MALCOLM 1.020 1.00 3-1.02 0 May 12, 2024 07:53 AM [facility] BENZODIAZEPINES SCREEN PANEL Specimen Type: URINE [...] May 11, 2024 03:52 PM Reporting Lab: [address] [address] Performing Lab: [address] [address] BENZODIAZEPINES SCREEN NONE-DETECTED None-Detec shahzad, Cutoff = 200 ng/mL PH, MALCOLM 5.6 [pH] 4-10 CREATININE, MALCOLM 162.14 mg/dL >20 SP.GRAVITY, MALCOLM 1.021 H 1.00 3-1.02 0 May 12, 2024 07:53 AM [facility] BUPRENORPHINE SCREEN PANEL Specimen Type: URINE [...] May 11, 2024 03:52 PM Reporting Lab: [address] [address] Performing Lab: [address] [address] BUPRENORPHINE (URINE) NONE-DETECTED None Detected, Cutoff = 10.0 ng/mL PH, MALCOLM 5.6 [pH] 4-10 CREATININE, MALCOLM 162.14 mg/dL >20 SP.GRAVITY, MALCOLM 1.021 H 1.00 3-1.02 0 May 12, 2024 07:53 AM [facility] CANNABINOIDS SCREEN PANEL Specimen Type: URINE [...] May 11, 2024 03:52 PM Reporting Lab: [address] [address] Performing Lab: [place] [facility] [address] CANNABINOIDS SCREEN NONE-DETECTED None-Detec shahzad,Cutoff = 50 ng/mL PH, MALCOLM 5.6 [pH] 4-10 CREATININE, MALCOLM 162.14 mg/dL >20 SP.GRAVITY, MALCOLM 1.021 H 1.00 3-1.02 0 May 12, 2024 07:53 AM [facility] COCAINE SCREEN PANEL Specimen Type: URINE [...] May 11, 2024 03:52 PM Reporting Lab: [place] [phone] Performing Lab: [place] [id number] COCAINE SCREEN NONE-DETECTED N one-Detec shahzad,Cutoff = 300 ng/mL PH, MALCOLM 5.6 [pH] 4-10 CREATININE, MALCOLM 162.14 mg/dL >20 SP.GRAVITY, MALCOLM 1.021 H 1.00 3-1.02 0 May 12, 2024 07:53 AM [facility] OPIATES SCREEN PANEL Specimen Type: URINE [...] May 11, 2024 03:52 PM Reporting Lab: [place] [phone] Performing Lab: [address] [address] OPIATES SCREEN NONE-DETECTED N one-Detec shahzad, Cutoff = 300 ng/mL PH, MALCOLM 5.6 [pH] 4-10 CREATININE, MALCOLM 162.14 mg/dL >20 SP.GRAVITY, MALCOLM 1.021 H 1.00 3-1.02 0 May 12, 2024 07:53 AM [facility] OXYCODONE SCREEN PANEL Specimen Type: URINE [...] May 11, 2024 03:52 PM Reporting Lab: [address] [address] Performing Lab: [address] [address] OXYCODONE SCREEN NONE-DETECTED None-Detec shahzad, Cutoff = 100 ng/mL PH, MALCOLM 5.6 [pH] 4-10 CREATININE, MALCOLM 162.14 mg/dL >20 SP.GRAVITY, MALCOLM 1.021 H 1.00 3-1.02 0 May 12, 2024 07:47 AM [facility] MAGNESIUM Specimen Type: SERUM No comment entered. Ordering Provider: EHSAN OVALLES Report Released Date/Time: Nov 11, 2023 05:57 AM Reporting Lab: [address] [address] Performing Lab: [address] [address] MAGNESIUM 2.0 mg/dL 1.6-2.6 May 12, 2024 07:47 AM [facility] URIC ACID Specimen Type: SERUM No comment entered. Ordering Provider: EHSAN OVALLES Report Released Date/Time: Nov 11, 2023 05:57 AM Reporting Lab: [facility] [address] Performing Lab: [facility] [address] [address] URIC ACID 5.6 mg/dL 3.5-7.2 May 12, 2024 07:47 AM [facility] HEMOGLOBIN A1C PANEL Specimen Type: BLOOD Comment: Values obtained from A1C measurements can vary. For atypical A1C assays, a reported value of 7.0 could actually be between 6.72 and 7.28 if measured by a reference method. A reported value of 9.0 could actually be between 8.73 and 9.27. Ref: http://www. sp.org/CAPdat a.asp Ordering Provider: EHSAN OVALLES Report Released Date/Time: Nov 11, 2023 05:57 AM Reporting Lab: [address] [address] Performing Lab: [address] [address] HEMOGLOBIN A1C 5.0 4.0-5.6 May 12, 2024 07:47 AM [facility] LIPID PANEL FASTING Specimen Type: SERUM No comment entered. Ordering Provider: EHSAN OVALLES Report Released Date/Time: Nov 11, 2023 05:57 AM Reporting Lab: [facility] [address] [address] Performing Lab: [facility] [address] CHOLESTEROL 246 mg/dL H TRIGLYCERIDE 153 mg/dL H 0-150 LDL calculated 182 mg/dL H 0-129 CHOL/HDL 7.5 HDL CHOLESTEROL 33 mg/dL L 40-60 May 12, 2024 07:47 AM [facility] PSA Specimen Type: SERUM No comment entered. Ordering Provider: EHSAN OVALLES Report Released Date/Time: Nov 11, 2023 05:57 AM Reporting Lab: [facility] [address] [facility] [address] Performing Lab: [place] [facility] [address] [facility] [address] PSA 0.84 ng/mL 0.00-4.00 May 12, 2024 07:47 AM [facility] LIVER FUNCTION Specimen Type: SERUM No comment entered. Ordering Provider: EHSAN OVALLES Report Released Date/Time: Nov 11, 2023 05:57 AM Reporting Lab: [facility] [address] [facility] [address] Performing Lab: [facility] [address] [address] PROTEIN,TOTAL 6.6 g/dL 6.0-8.3 ALBUMIN 3.8 g/dL 3.5-5.0 ALKALINE PHOSPHATASE 59 U/L 40-150 AST 20 U/L 5-34 ALT 37 U/L BILIRUBIN, TOTAL 0.4 mg/dL 0.2-1.2 May 12, 2024 07:47 AM [facility] TSH Specimen Type: SERUM No comment entered. Ordering Provider: EHSAN OVALLES Report Released Date/Time: Nov 11, 2023 05:57 AM Reporting Lab: [facility] [address] [facility] [address] Performing Lab: [facility] [address] [address] TSH 4.05 u[IU]/mL 0.35-5.00 May 12, 2024 07:47 AM [facility] BASIC METABOLIC PANEL (fasting) Specimen Type: SERUM No comment entered. Ordering Provider: EHSAN OVALLES Report Released Date/Time: Nov 11, 2023 05:57 AM Reporting Lab: [facility] [address] [facility] [address] Performing Lab: [facility] [address] [address] UREA NITROGEN 22 mg/dL 7-25 GLUCOSE 88 mg/dL 65-100 SODIUM 141 mmol/L 135-145 POTASSIUM 4.4 mmol/L 3.5-5.0 CHLORIDE 108 mmol/L 100-110 CO2 23 meq/L 20-30 CREATININE, Serum 1.09 mg/dL 0.50-1.40 eGFR(CKD-EPI 2020) 82 mL/min >60 May 12, 2024 07:47 AM [facility] CBC AND DIFF (AUTO) Specimen Type: BLOOD No comment entered. Ordering Provider: EHSAN OVALLES Report Released Date/Time: Nov 11, 2023 05:57 AM Reporting Lab: [facility] [address] [facility] [address] Performing Lab: [facility] [address] [facility] [address] WBC 8.27 10*3/uL 4.50-11.00 RBC 5.05 10*6/uL [...] 12, 2023 10:46 AM VA-TOBACCO NEVER USED [facility] Tobacco Use History This section includes a history of the smoking, or tobacco-related health factors, that were collected on or before the date of the Encounter. The data comes from the [place] facility where the Encounter took place. Date/Time Smoking Status/Tobacco Use Comment F acility Oct 20, 2015 10:30 AM LIFETIME NON-TOBACCO USER [facility] Sep 19, 2009 11:13 AM LIFETIME NON-TOBACCO USER [facility] Advance Directives: All historical and [...] Mar 22, 2018 ADVANCE DIRECTIVE JASWANT DICKINSON [facility] Encounter Notes: All associated encounter notes This section contains the clinical notes associated to the Encounter. Date/Time Encounter Note(s) Provider Source May 16, 2024 02:05 PM ADMINISTRATIVE NOT E: LOCAL TITLE: ADMINISTRATIVE NOTE STANDARD TITLE: ADMINISTRATIVE NOTE DATE OF NOTE: MAY 16, 2024@14:05 ENTRY DATE: MAY 16, 2024@14:05:08 AUTHOR: TAMEKA DOSS EXP COSIGNER: URGENCY: STATUS: COMPLETED Received a fax from [facility] looking for a new referral for continuation of care. Consult was placed and held for provider signature. /dheeraj/ TAMEKA DOSS RN REGISTERED NURSE Signed: 05/16/2024 14:06 TAMEKA DOSSFIELD
--- OUTSIDE RECORDS SUMMARY | 2024-08-18 10:01 | XMS_ITS ---
Author Name [facility] Organization [facility] Address [address] [place] [address] Care Team Providers Care Resident Associate Name Role Phone EHSAN OVALLES Primary Care [...] PART A December 08, 2013 PART A [id number] [phone] BRIGID RAMOS PATIENT MEDICARE (WNR) MEDICARE (M) PART A December 08, 2013 PART A [id number] BRIGID RAMOS PATIENT Selected Encounter This section includes the information on record at [facility] for the Encounter. Date/Time Encounter Type Encounter Description Reason Pro vider Source May 17, 2024 08:28 AM Outpatient Encounter PRIMARY CARE/MEDICINE IHE Encounter Template Text not used by [facility] Plan of Treatment: Future Appointments (+ 6 [...] 20 appointments. The data comes from all [facility] treatment facilities. Appointment Date/Time Appointment Type Appointme nt Facility Name May 24, 2024 12:00 PM AMBULATORY - NONE [facility] [place] [facility] May 31, 2024 11:30 AM AMBULATORY - MEDICINE [facility] [place] [facility] Jun 03, 2024 09:50 AM AMBULATORY - MEDICINE [facility] [place] [facility] Jun 07, 2024 11:30 AM AMBULATORY - NONE [facility] [place] [facility] Jul 27, 2024 02:30 PM AMBULATORY - REHAB MEDICIN E [facility] [place] [facility] Aug 30, 2024 11:00 AM AMBULATORY - MEDICINE [facility] [place] [facility] Sep 14, 2024 01:00 PM AMBULATORY - REHAB MEDICIN E [facility] [place] [facility] Active, Pending, and Scheduled Orders This section includes a listing of several types of active, pending, and scheduled orders, including clinic medications orders, diagnostic test orders, procedure orders and consult orders; where the start date of the order is 45 days before the date of the Encounter or 45 days after the date of theEncounter. The data comes from all [facility] treatment facilities. Test Date/Time Test Type Test Details Facility Name May 16, 2024 02:21 PM Consult Order COMMUNITY CARE-UROLOGY Cons Outreach Assistant's Choice [facility] Lab Results: +/- 30 days of the encounter This section includes the Chemistry and Hematology Lab Results on record with [facility] for the patient. Radiology Reports and Pathology Reports are provided separately, in subsequent sections. Lab Results This section contains the Chemistry/Hematology Results that were resulted 30 days before or 30 daysafter the date of the Encounter. Date/Time Source Result Type Result - Unit Interpretation Reference Range Comment May 12, 2024 07:53 AM [facility] METHADONE SCREEN Specimen Type: URINE Comment: MALCOLM test are qualitative, any L or H flags only indicate a [facility] alert was sent. Ordering Provider: DEE DEE WILSON Report Released Date/Time: May 11, 2024 03:52 PM Reporting Lab: [facility] [address] Performing Lab: [facility] [address] [facility] [address] METHADONE SCREEN None detected(Nega tive) L Negative May 12, 2024 07:53 AM [facility] ALCOHOL, ETHYL URINE PANEL Specimen Type: [...] May 11, 2024 03:52 PM Reporting Lab: [address] [address] Performing Lab: [address] [address] ALCOHOL, ETHYL URINE NONE-DETECTED mg/dL NONE-DETEC AMANDA, cutoff = 10 mg/dL PH, MALCOLM 5.6 [pH] 4-10 CREATININE, MALCOLM 162.14 mg/dL >20 SP.GRAVITY, MALCOLM 1.021 H 1.00 3-1.02 0 May 12, 2024 07:53 AM [facility] AMPHETAMINES SCREEN PANEL Specimen Type: URINE [...] May 11, 2024 03:52 PM Reporting Lab: [address] [address] Performing Lab: [address] [address] AMPHETAMINES SCREEN NONE-DETECTED None-Detec amanda, Cutoff = 1000 ng/mL PH, MALCOLM 5.6 [pH] 4-10 CREATININE, MALCOLM 162.14 mg/dL >20 SP.GRAVITY, MALCOLM 1.021 H 1.00 3-1.02 0 May 12, 2024 07:53 AM [facility] FENTANYL SCREEN PANEL Specimen Type: URINE [...] May 11, 2024 03:52 PM Reporting Lab: [address] [address] Performing Lab: [address] [address] FENTANYL SCREEN NONE-DETECTE D ng/mL Negative: Cutoff = 1.00 ng/mL PH, MALCOLM 5.6 [pH] 4-10 CREATININE, MALCOLM 156.70 mg/dL >20 SP.GRAVITY, MALCOML 1.020 1.00 3-1.02 0 May 12, 2024 07:53 AM [facility] BENZODIAZEPINES SCREEN PANEL Specimen Type: URINE [...] May 11, 2024 03:52 PM Reporting Lab: [address] [address] Performing Lab: [address] [address] BENZODIAZEPINES SCREEN NONE-DETECTED None-Detec amanda, Cutoff = 200 ng/mL PH, MALCOLM 5.6 [pH] 4-10 CREATININE, MALCOLM 162.14 mg/dL >20 SP.GRAVITY, MALCOLM 1.021 H 1.00 3-1.02 0 May 12, 2024 07:53 AM [facility] BUPRENORPHINE SCREEN PANEL Specimen Type: URINE [...] May 11, 2024 03:52 PM Reporting Lab: [address] [address] Performing Lab: [address] [address] BUPRENORPHINE (URINE) NONE-DETECTED None Detected, Cutoff = 10.0 ng/mL PH, MALCLOM 5.6 [pH] 4-10 CREATININE, MALCOLM 162.14 mg/dL >20 SP.GRAVITY, MALCOLM 1.021 H 1.00 3-1.02 0 May 12, 2024 07:53 AM [facility] CANNABINOIDS SCREEN PANEL Specimen Type: URINE [...] May 11, 2024 03:52 PM Reporting Lab: [address] [address] Performing Lab: [facility] [address] CANNABINOIDS SCREEN NONE-DETECTED None-Detec amanda,Cutoff = 50 ng/mL PH, MALCOLM 5.6 [pH] 4-10 CREATININE, MALCOLM 162.14 mg/dL >20 SP.GRAVITY, MALCOLM 1.021 H 1.00 3-1.02 0 May 12, 2024 07:53 AM [facility] COCAINE SCREEN PANEL Specimen Type: URINE [...] May 11, 2024 03:52 PM Reporting Lab: [place] [phone] Performing Lab: [place] [id number] COCAINE SCREEN NONE-DETECTED N one-Detec amanda,Cutoff = 300 ng/mL PH, MALCOLM 5.6 [pH] 4-10 CREATININE, MALCOLM 162.14 mg/dL >20 SP.GRAVITY, MALCOLM 1.021 H 1.00 3-1.02 0 May 12, 2024 07:53 AM [facility] OPIATES SCREEN PANEL Specimen Type: URINE [...] May 11, 2024 03:52 PM Reporting Lab: [place] [phone] Performing Lab: [address] [address] OPIATES SCREEN NONE-DETECTED N one-Detec amanda, Cutoff = 300 ng/mL PH, MALCOLM 5.6 [pH] 4-10 CREATININE, MALCOLM 162.14 mg/dL >20 SP.GRAVITY, MALCOLM 1.021 H 1.00 3-1.02 0 May 12, 2024 07:53 AM [facility] OXYCODONE SCREEN PANEL Specimen Type: URINE [...] May 11, 2024 03:52 PM Reporting Lab: [address] [address] Performing Lab: [address] [address] OXYCODONE SCREEN NONE-DETECTED None-Detec amanda, Cutoff = 100 ng/mL PH, MALCOLM 5.6 [pH] 4-10 CREATININE, MALCOLM 162.14 mg/dL >20 SP.GRAVITY, MALCOLM 1.021 H 1.00 3-1.02 0 May 12, 2024 07:47 AM [facility] HEMOGLOBIN A1C PANEL Specimen Type: BLOOD [...] Nov 11, 2023 05:57 AM Reporting Lab: [address] [address] Performing Lab: [facility] [place] [place] [facility] [address] [facility] [address] HEMOGLOBIN A1C 5.0 4.0-5.6 May 12, 2024 07:47 AM [facility] MAGNESIUM Specimen Type: SERUM No comment entered. Ordering Provider: EHSAN OVALLES Report Released Date/Time: Nov 11, 2023 05:57 AM Reporting Lab: [facility] [place] [place] [facility] [address] [facility] [address] Performing Lab: [facility] [address] [facility] [address] MAGNESIUM 2.0 mg/dL 1.6-2.6 May 12, 2024 07:47 AM [facility] URIC ACID Specimen Type: SERUM No comment entered. Ordering Provider: EHSAN OVALLES Report Released Date/Time: Nov 11, 2023 05:57 AM Reporting Lab: [facility] [place] [facility] [address] [facility] [address] Performing Lab: [facility] [address] [facility] [address] URIC ACID 5.6 mg/dL 3.5-7.2 May 12, 2024 07:47 AM [facility] LIPID PANEL FASTING Specimen Type: SERUM No comment entered. Ordering Provider: EHSAN OVALLES Report Released Date/Time: Nov 11, 2023 05:57 AM Reporting Lab: [facility] [place] [facility] [address] [facility] [address] Performing Lab: [facility] [address] [address] CHOLESTEROL 246 mg/dL H TRIGLYCERIDE 153 mg/dL H 0-150 LDL calculated 182 mg/dL H 0-129 CHOL/HDL 7.5 HDL CHOLESTEROL 33 mg/dL L 40-60 May 12, 2024 07:47 AM [facility] PSA Specimen Type: SERUM No comment entered. Ordering Provider: EHSAN OVALLES Report Released Date/Time: Nov 11, 2023 05:57 AM Reporting Lab: [facility] [place] [facility] [address] [facility] [address] Performing Lab: [facility] [place] [facility] [address] [facility] [address] PSA 0.84 ng/mL 0.00-4.00 May 12, 2024 07:47 AM [facility] TSH Specimen Type: SERUM No comment entered. Ordering Provider: EHSAN OVALLES Report Released Date/Time: Nov 11, 2023 05:57 AM Reporting Lab: [facility]N [facility] [address] [facility] [address] Performing Lab: [facility] [address] [facility] [address] TSH 4.05 u[IU]/mL 0.35-5.00 May 12, 2024 07:47 AM [facility] LIVER FUNCTION Specimen Type: SERUM No comment entered. Ordering Provider: EHSAN OVALLES Report Released Date/Time: Nov 11, 2023 05:57 AM Reporting Lab: [facility] [address] [facility] [address] Performing Lab: [facility] [address] [facility] [address] PROTEIN,TOTAL 6.6 g/dL 6.0-8.3 ALBUMIN 3.8 g/dL 3.5-5.0 ALKALINE PHOSPHATASE 59 U/L 40-150 AST 20 U/L 5-34 ALT 37 U/L BILIRUBIN, TOTAL 0.4 mg/dL 0.2-1.2 May 12, 2024 07:47 AM [facility] BASIC METABOLIC PANEL (fasting) Specimen Type: SERUM No comment entered. Ordering Provider: EHSAN OVALLES Report Released Date/Time: Nov 11, 2023 05:57 AM Reporting Lab: [facility] [address] [facility] [address] Performing Lab: [facility]ITAL[facility] [address] [address] UREA NITROGEN 22 mg/dL 7-25 GLUCOSE 88 mg/dL 65-100 SODIUM 141 mmol/L 135-145 POTASSIUM 4.4 mmol/L 3.5-5.0 CHLORIDE 108 mmol/L 100-110 CO2 23 meq/L 20-30 CREATININE, Serum 1.09 mg/dL 0.50-1.40 eGFR(CKD-EPI 2020) 82 mL/min >60 May 12, 2024 07:47 AM [facility] CBC AND DIFF (AUTO) Specimen Type: BLOOD No comment entered. Ordering Provider: EHSAN OVALLES Report Released Date/Time: Nov 11, 2023 05:57 AM Reporting Lab: [facility] [address] [facility] [address] Performing Lab: [facility] [address] [facility] [address] WBC 8.27 10*3/uL 4.50-11.00 RBC 5.05 10*6/uL [...] and tobacco- related health factors from the [facility] facility where the Encounter took place. Current Smoking Status This section includes the most current smoking, or tobacco-related health factor, from the [facility] facility where the Encounter took place. Date/Time Current Smoking Status Comment Jose armstrong May 12, 2023 10:46 AM VA-TOBACCO NEVER USED [facility] Tobacco Use History This section includes a history of the smoking, or tobacco-related health factors, that were collected on or before the date of the Encounter. The data comes from the [facility] facility where the Encounter took place. Date/Time Smoking Status/Tobacco Use Comment Trisha [email or web address] Oct 20, 2015 10:30 AM LIFETIME NON-TOBACCO USER [facility] Sep 19, 2009 11:13 AM LIFETIME NON-TOBACCO USER [facility] Advance Directives: All historical and current Section Date Range: From patient's date of to the date document was created. This section includes ALL of a patient's completed or amended [facility] Advance and Rescinded Directives. The entries below indicate that a directive exists for the patient, but an actual copy is not included with this document. The data comes from all [facility] facilities. Date Advance Directives Provider Source Mar 22, 2018 ADVANCE DIRECTIVE JASWANT DICKINSON [facility] Encounter Notes: All associated encounter notes This section contains the clinical notes associated to the Encounter. Date/Time Encounter Note(s) Provider Source May 17, 2024 08:28 AM ADMINISTRATIVE NOT E: LOCAL TITLE: ADMINISTRATIVE NOTE STANDARD TITLE: ADMINISTRATIVE NOTE DATE OF NOTE: MAY 17, 2024@08:28 ENTRY DATE: MAY 17, 2024@08:28:55 AUTHOR: TAMEKA DOSS EXP COSIGNER: URGENCY: STATUS: COMPLETED ADMINISTRATIVE NOTE Has ADDENDA Spoke with and he stated he has knee surgery yesterday at [facility] and his EKG found a Left Bundle Branch Block. is concerned and wants to be seen by the provider GIOVANNI. Will forward to PACT AMSA to please schedule and to request all the records including EKGs for review from [facility]. Advised the that a Cardiology consult would possibly be placed based off the records. /dheeraj/ TAMEKA DOSS RN REGISTERED NURSE Signed: 05/17/2024 08:32 Receipt Acknowledged By: 05/17/2024 13:23 /eileen BARON [employer]VANCED STATION REPAIRER 05/17/2024 ADDENDUM STATUS: COMPLETED LM ON /eileen BARON [employer]ED STATION REPAIRER Signed: 05/17/2024 10:20 05/17/2024 ADDENDUM STATUS: COMPLETED r/s appt to 05/31 /eileen BARON ADVANCED STATION REPAIRER Signed: 05/17/2024 13:24 TAMEKA DOSS
--- OUTSIDE RECORDS SUMMARY | 2024-08-18 10:01 | XMS_ITS | Encounter Summary ---
Author Name [facility] [place] [facility] [place] [facility] [place] Address [address] [place] [id number] Care Team Providers Care Slot Machine Department Floorperson Name Role Phone EHSAN OVALLES Primary Care [...] PART A December 08, 2013 PART A [id number] [id number] BRIGID RAMOS PATIENT MEDICARE (WNR) MEDICARE (M) PART A December 08, 2013 PART A [id number] 62A KONRADTASHIACRISTY BRIGID DAMICO PATIENT Selected Encounter This section includes the information on record at [place] for the Encounter. Date/Time Encounter Type Encounter Description Reason Provider Source May 31, 2024 11:30 AM OFFICE O/P EST MOD 30 MIN PRIMARY CARE/MEDICINE ICD-10-CM I10 Essential (primary) hypertension EHSAN OVALLES Encounter Template Text not used by [place] Assessments - Encounter Diagnoses This section includes the primary and secondary diagnoses documented for the Encounter. Date/Time Primary/Secondary Diagnosis Diagnosis Name Provider Source May 31, 2024 11:44 AM PRIMARY Essential (primary) hypertension MARILYN VALLECILLO [facility] May 31, 2024 11:44 AM SECONDARY Hyperlipidemia, unspecified MARILYN VALLECILLO [facility] May 31, 2024 11:44 AM SECONDARY Left bundle-branch block, unspecified RUTH ANNMARILYN Salazar [facility] May 31, 2024 11:44 AM SECONDARY Obesity, unspecified RUTH ANNMARILYN [facility] May 31, 2024 11:44 AM SECONDARY Pain in left knee MARILYN VALLECILLO [facility] Plan of Treatment: Future Appointments (+ 6 months) and Future Tests (+/- 45 days) The Plan of Treatment section includes future care activities for the patient from all [place] [facility] This section includes future appointments and future orders which are active, pending or scheduled. Future Appointments This section includes appointments that were scheduled to occur 6 months from the date of the Encounter, up to a maximum of 20 appointments. The data comes from all [place] treatment facilities. Appointment Date/Time Appointment Type Appointme nt Facility Name Jun 03, 2024 09:50 AM AMBULATORY - MEDICINE [facility] [place] [facility] Jun 07, 2024 11:30 AM [facility]ONE [facility] [place] [facility] Jul 27, 2024 02:30 PM [place] [facility] [place] [facility] Aug 30, 2024 11:00 AM AMBULATORY - MEDICINE [facility] [place] [facility] Sep 14, 2024 01:00 PM AMBULATORY - [facility] [place] [facility] Active, Pending, and Scheduled Orders This section includes a listing of several types of active, pending, and scheduled orders, including clinic medications orders, diagnostic test orders, procedure orders and consult orders; where the start date of the order is 45 days before the date of the Encounter or 45 days after the date of theEncounter. The data comes from all [place] treatment [facility]. Test Date/Time Test Type Test Details Facility Name May 16, 2024 02:21 PM Consult Order COMMUNITY CARE-UROLOGY Cons Pay Agent's Choice [facility] Jul 05, 2024 09:45 AM Consult Order COMMUNITY CARE-ACUPUNCTURE Cons Pay Agent's Choice [facility] Lab Results: +/- 30 days of the encounter This section includes the Chemistry and Hematology Lab Results on record with [place] for the patient. Radiology Reports and Pathology Reports are provided separately, in subsequent sections. Lab Results This section contains the Chemistry/Hematology Results that were resulted 30 days before or 30 daysafter the date of the Encounter. Date/Time Source Result Type Result - Unit Interpretation Reference Range Comment May 12, 2024 07:53 AM [facility] METHADONE SCREEN Specimen Type: URINE Comment: MALCOLM test are qualitative, any L or H flags only indicate a [place] alert was sent. Ordering Provider: DEE DEE WILSON Report Released Date/Time: May 11, 2024 03:52 PM Reporting Lab: [facility] [address] [facility] [address] Performing Lab: [facility] [address] [facility] [address] METHADONE SCREEN None detected(Nega tive) L Negative May 12, 2024 07:53 AM [facility] ALCOHOL, ETHYL URINE PANEL Specimen Type: [...] May 11, 2024 03:52 PM Reporting Lab: [address] [address] Performing Lab: [facility] [address] [facility] [address] ALCOHOL, ETHYL URINE NONE-DETECTED mg/dL NONE-DETEC AMANDA, cutoff = 10 mg/dL PH, MALCOLM 5.6 [pH] 4-10 CREATININE, MALCOLM 162.14 mg/dL >20 SP.GRAVITY, MALCOLM 1.021 H 1.00 3-1.02 0 May 12, 2024 07:53 AM [facility] AMPHETAMINES SCREEN PANEL Specimen Type: URINE [...] May 11, 2024 03:52 PM Reporting Lab: [address] [address] Performing Lab: [address] [address] AMPHETAMINES SCREEN NONE-DETECTED None-Detec amanda, Cutoff = 1000 ng/mL PH, MALCOLM 5.6 [pH] 4-10 CREATININE, MALCOLM 162.14 mg/dL >20 SP.GRAVITY, MALCOLM 1.021 H 1.00 3-1.02 0 May 12, 2024 07:53 AM [facility] FENTANYL SCREEN PANEL Specimen Type: URINE [...] May 11, 2024 03:52 PM Reporting Lab: [address] [address] Performing Lab: [address] [address] FENTANYL SCREEN NONE-DETECTE D ng/mL Negative: Cutoff = 1.00 ng/mL PH, MALCOLM 5.6 [pH] 4-10 CREATININE, MALCOLM 156.70 mg/dL >20 SP.GRAVITY, MALCOLM 1.020 1.00 3-1.02 0 May 12, 2024 07:53 AM [facility] BENZODIAZEPINES SCREEN PANEL Specimen Type: URINE [...] May 11, 2024 03:52 PM Reporting Lab: [address] [address] Performing Lab: [address] [address] BENZODIAZEPINES SCREEN NONE-DETECTED None-Detec amanda, Cutoff = 200 ng/mL PH, MALCOLM 5.6 [pH] 4-10 CREATININE, MALCOLM 162.14 mg/dL >20 SP.GRAVITY, MALCOLM 1.021 H 1.00 3-1.02 0 May 12, 2024 07:53 AM [facility] BUPRENORPHINE SCREEN PANEL Specimen Type: URINE [...] May 11, 2024 03:52 PM Reporting Lab: [address] [address] Performing Lab: [address] [address] BUPRENORPHINE (URINE) NONE-DETECTED None Detected, Cutoff = 10.0 ng/mL PH, MALCOLM 5.6 [pH] 4-10 CREATININE, MALCOLM 162.14 mg/dL >20 SP.GRAVITY, MALCOLM 1.021 H 1.00 3-1.02 0 May 12, 2024 07:53 AM [facility] CANNABINOIDS SCREEN PANEL Specimen Type: URINE [...] May 11, 2024 03:52 PM Reporting Lab: [address] [address] Performing Lab: [address] [address] CANNABINOIDS SCREEN NONE-DETECTED None-Detec amanda,Cutoff = 50 ng/mL PH, MALCOLM 5.6 [pH] 4-10 CREATININE, MALCOLM 162.14 mg/dL >20 SP.GRAVITY, MALCOLM 1.021 H 1.00 3-1.02 0 May 12, 2024 07:53 AM [facility] COCAINE SCREEN PANEL Specimen Type: URINE [...] May 11, 2024 03:52 PM Reporting Lab: [address] [address] Performing Lab: [address] [address] COCAINE SCREEN NONE-DETECTED N one-Detec amanda,Cutoff = 300 ng/mL PH, MALCOLM 5.6 [pH] 4-10 CREATININE, MALCOLM 162.14 mg/dL >20 SP.GRAVITY, MALCOLM 1.021 H 1.00 3-1.02 0 May 12, 2024 07:53 AM [facility] OPIATES SCREEN PANEL Specimen Type: URINE [...] May 11, 2024 03:52 PM Reporting Lab: [address] [address] Performing Lab: [address] [address] OPIATES SCREEN NONE-DETECTED N one-Detec amanda, Cutoff = 300 ng/mL PH, MALCOLM 5.6 [pH] 4-10 CREATININE, MALCOLM 162.14 mg/dL >20 SP.GRAVITY, MALCOLM 1.021 H 1.00 3-1.02 0 May 12, 2024 07:53 AM [facility] OXYCODONE SCREEN PANEL Specimen Type: URINE [...] May 11, 2024 03:52 PM Reporting Lab: [address] [address] Performing Lab: [address] [address] OXYCODONE SCREEN NONE-DETECTED None-Detec amanda, Cutoff = 100 ng/mL PH, MALCOLM 5.6 [pH] 4-10 CREATININE, MALCOLM 162.14 mg/dL >20 SP.GRAVITY, MALCOLM 1.021 H 1.00 3-1.02 0 May 12, 2024 07:47 AM [facility] HEMOGLOBIN A1C PANEL Specimen Type: BLOOD [...] Nov 11, 2023 05:57 AM [facility] [address] [address] [facility]forming [facility]: [facility] [address] HEMOGLOBIN A1C 5.0 4.0-5.6 May 12, 2024 07:47 AM [facility] MAGNESIUM Specimen Type: SERUM No comment entered. Ordering Provider: EHSAN OVALLES Report Released Date/Time: Nov 11, 2023 05:57 AM Reporting Lab: [facility] [address] [facility] [address] Performing Lab: [facility] [address] [address] MAGNESIUM 2.0 mg/dL 1.6-2.6 May 12, 2024 07:47 AM [facility] URIC ACID Specimen Type: SERUM No comment entered. Ordering Provider: EHSAN OVALLES Report Released Date/Time: Nov 11, 2023 05:57 AM Reporting Lab[facility] [address] [facility] [address] Performing Lab: [facility] [address] [address] URIC ACID 5.6 mg/dL 3.5-7.2 May 12, 2024 07:47 AM [facility] LIPID PANEL FASTING Specimen Type: SERUM No comment entered. Ordering Provider: EHSAN OVALLES Report Released Date/Time: Nov 11, 2023 05:57 AM Reporting Lab: [facility] [address] [facility] [address] Performing Lab: [facility] [address] [facility] [address] CHOLESTEROL 246 mg/dL H TRIGLYCERIDE 153 mg/dL H 0-150 LDL calculated 182 mg/dL H 0-129 CHOL/HDL 7.5 HDL CHOLESTEROL 33 mg/dL L 40-60 May 12, 2024 07:47 AM [facility] PSA Specimen Type: SERUM No comment entered. Ordering Provider: EHSAN OVALLES Report Released Date/Time: Nov 11, 2023 05:57 AM Reporting Lab: [facility] [address] [facility] [address] Performing Lab: [address] [address] PSA 0.84 ng/mL 0.00-4.00 May 12, 2024 07:47 AM [facility] TSH Specimen Type: SERUM No comment entered. Ordering Provider: EHSAN OVALLES Report Released Date/Time: Nov 11, 2023 05:57 AM Reporting Lab: [facility] [address] [address] Performing Lab: [facility] [address] [address] TSH 4.05 u[IU]/mL 0.35-5.00 May 12, 2024 07:47 AM [facility] LIVER FUNCTION Specimen Type: SERUM No comment entered. Ordering Provider: EHSAN OVALLES Report Released Date/Time: Nov 11, 2023 05:57 AM Reporting Lab: [facility] [address] Performing Lab: [facility] [address] [address] PROTEIN,TOTAL 6.6 g/dL 6.0-8.3 ALBUMIN 3.8 g/dL 3.5-5.0 ALKALINE PHOSPHATASE 59 U/L 40-150 AST 20 U/L 5-34 ALT 37 U/L BILIRUBIN, TOTAL 0.4 mg/dL 0.2-1.2 May 12, 2024 07:47 AM [facility] BASIC METABOLIC PANEL (fasting) Specimen Type: SERUM No comment entered. Ordering Provider: EHSAN OVALLES Report Released Date/Time: Nov 11, 2023 05:57 AM Reporting Lab: [address] [address] Performing Lab: [address] [address] UREA NITROGEN 22 mg/dL 7-25 GLUCOSE 88 mg/dL 65-100 SODIUM 141 mmol/L 135-145 POTASSIUM 4.4 mmol/L 3.5-5.0 CHLORIDE 108 mmol/L 100-110 CO2 23 meq/L 20-30 CREATININE, Serum 1.09 mg/dL 0.50-1.40 eGFR(CKD-EPI 2020) 82 mL/min >60 May 12, 2024 07:47 AM [facility] CBC AND DIFF (AUTO) Specimen Type: BLOOD No comment entered. Ordering Provider: EHSAN OVALLES Report Released Date/Time: Nov 11, 2023 05:57 AM Reporting Lab: [address] [address] Performing Lab: [address] [address] WBC 8.27 10*3/uL 4.50-11.00 RBC 5.05 10*6/uL [...] Current Smoking Status Comment Facil ity May 31, 2024 11:30 AM [place] [facility] Tobacco Use History This section includes a history of the smoking, or tobacco-related health factors, that were collected on or before the date of the Encounter. The data comes from the [place] facility where the Encounter took place. Date/Time Smoking Status/Tobacco Use Comment F acility May 26, 2022 10:00 AM [place] US[place] [facility] May 21, 2021 03:00 PM [facility] Aug 08, 2019 11:05 AM [place] NEVER US[facility] Jun 28, 2018 03:14 PM [place]-TO[place]ACCO NEVER USED [facility] May 28, 2017 08:56 AM LIFETIME NON-TOBACCO USER [facility] Advance Directives: All historical and current Section [...] Mar 22, 2018 ADVANCE DIRECTIVE JASWANT DICKINSON [facility] Encounter Notes: All associated encounter notes This section contains the clinical notes associated to the Encounter. Date/Time Encounter Note(s) Provider Source Jun 13, 2024 08:09 AM ADDENDUM: LOCAL TITLE: Addendum STANDARD TITLE: ADDENDUM DATE OF NOTE: JUN 13, 2024@08:09:02 ENTRY DATE: JUN 13, 2024@08:09:03 AUTHOR: ADEN VALLECILLO EXP COSIGNER: URGENCY: STATUS: COMPLETED Echo completed on results below: Summary 1. Normal LV size, wall motion, and function; LVEF: 60%, biplane Baca's. Mild LVH. 2. Normal LV diastolic function for age. 3. Moderately dilated RV with normal systolic function. 4. Mildly enlarged left atrium. 5. Structurally normal valves with mild mitral regurgitation. 6. Normal left and right atrial filling pressures. /dheeraj/ ADEN VALLECILLO LPN PACT 10 Signed: 06/13/2024 08:13 Receipt Acknowledged By: 06/14/2024 15:35 /es/ EHSAN OVALLES MD Primary Care Physician --- Original Document --- 05/31/24 NOTE: HISTORY OF PRESENT ILLNESS: COLBY HARTLEY is a 54 yo MALE who [facility] for his annual wellness exam. Labs completed. Active problems - Computerized Problem List is the source for the followin. Colonoscopy Screening 2. Left knee pain 3. Chronic low back pain 4. Chronic esophagitis 5. Obesity 6. Constrictive tenosynovitis 7. Erectile dysfunction 8. Obstructive sleep apnea syndrome 9. Hyperlipidemia 10. Posttraumatic stress disorder 11. Depression 12. Hypertension 13. Gout 14. Traumatic brain injury 15. Asthma The following VA and Non-VA meds were reconciled with patient: Active Outpatient Medications (including Supplies): Issue Date Status Last Fill Active Outpatient Medications Refills Expiration ======= 1) ACETAMINOPHEN 500MG TAB Qty: 200 for 30 ACTIVE Issu:03-24-24 days Sig: TAKE TWO TABLETS BY MOUTH Refills: 4 Last:05-30-24 THREE TIMES DAILY NEEDED FOR PAIN Expr:03-25-25 2) BUPRENORPHINE 300MCG BUCCAL FILM Qty: ACTIVE Issu:03-24-24 60 for 30 days Sig: PLACE ONE FILM Refills: 2 Last:05-30-24 BETWEEN CHEEK AND GUM UNTIL DISSOLVED Expr:09-24-24 TWICE DAILY FOR PAIN 3) CLOMIPHENE CITRATE 50MG TAB Qty: 30 for ACTIVE Issu:11-03-23 60 days Sig: TAKE ONE-HALF TABLET BY Refills: 0 Last:02-21-24 MOUTH ONCE DAILY Expr:11-03-24 4) LIDOCAINE 5% OINT Qty: 105 for 30 days ACTIVE Issu:08-14-23 Sig: APPLY THIN LAYER TOPICALLY TWICE Refills: 1 Last:05-30-24 DAILY TO THREE TIMES A DAY NEEDED Expr:08-14-24 FOR MINOR SKIN WOUND PAIN 5) MONTELUKAST NA 10MG TAB Qty: 90 for 90 ACTIVE (S) Issu:10-29-23 days Sig: TAKE ONE TABLET BY MOUTH AT Refills: 0 Last:07-15-24 BEDTIME FOR CONTROLLER MEDICATION FOR Expr:10-29-24 ASTHMA 6) NAPROXEN 500MG TAB Qty: 60 for 30 days ACTIVE Issu:03-01-24 Sig: TAKE ONE TABLET BY MOUTH TWICE Refills: 1 Last:05-30-24 DAILY TAKE WITH FOOD Expr:03-02-25 ALLERGIES: ========= PENICILLIN, MUSHROOMS, MELOXICAM LAB HISTORY: CHEM 7 TREND Collection DT Spec GLUCOSE BUN CREATIN Sodium K+/Pot CL CO2 05/12/2024 07:47 SERUM 88 22 1.09 141 4.4 108 23 11/09/2023 08:51 SERUM 97 25 1.12 141 4.5 104 28 05/08/2023 08:47 SERUM 92 28 H 1.02 139 4.2 104 26 11/11/2022 07:51 SERUM 91 24 1.05 141 4.4 104 26 05/22/2022 07:34 SERUM 95 21 1.14 140 4.2 104 27 CBC TREND Collection DT Spec WBC RBC HGB HCT MCV MCH PLT 05/12/2024 07:47 BLOOD 8.27 5.05 15.2 45.6 90.3 30.1 220 05/08/2023 08:47 BLOOD 8.78 4.66 14.0 43.3 92.9 30.0 270 05/22/2022 07:34 BLOOD 8.36 4.70 14.3 43.4 92.3 30.4 279 05/17/2021 07:15 BLOOD 9.52 4.86 14.7 44.6 91.8 30.2 284 05/02/2020 08:38 BLOOD 9.40 4.73 14.7 44.0 93.0 31.1 269 HEMOGLOBIN A1C TREND Collection DT Spec HGBA1c 05/12/2024 07:47 BLOOD 5.0 05/08/2023 08:47 BLOOD 5.2 05/22/2022 07:34 BLOOD 5.2 05/17/2021 07:15 BLOOD 5.5 05/02/2020 08:38 BLOOD 5.6 LIPID PANEL TREND Collection DT Spec CHOL HDL CHO/HDL LDL-c TRIG 05/12/2024 07:47 SERUM 246 H 33 L 7.5 182 H 153 H 11/09/2023 08:51 SERUM 286 H 38 L 7.5 226 H 111 05/08/2023 08:47 SERUM 203 H 36 L 5.6 149 H 91 11/11/2022 07:51 SERUM 214 H 38 L 5.6 158 H 89 05/22/2022 07:34 SERUM 197 36 L 5.5 145 H 79 LIVER PANEL TREND Collection DT Spec AST ALT T BILI ALK JORGE LUIS T. PROT ALBUMIN 05/12/2024 07:47 SERUM 20 37 0.4 59 6.6 3.8 11/09/2023 08:51 SERUM 21 40 0.6 68 7.2 4.0 05/08/2023 08:47 SERUM 19 38 0.7 74 7.4 4.2 11/11/2022 07:51 SERUM 19 38 0.7 61 7.1 4.1 05/22/2022 07:34 SERUM 17 34 1.0 68 7.2 4.0 Collection DT Spec TSH 05/12/2024 07:47 SERUM 4.05 HISTORY: PERIOD OF SERVICE - [facility] Event[employer] FROM May TO Aug COMBAT SERVICE INDICATED: No VITAL SIGNS: Blood Pressure 148/81 (05/31/2024 11:47) Pulse 77 (05/31/2024 11:47) Respiration 16 (05/31/2024 11:47) Pulse Oximetry 97% (05/31/2024 11:47) Temperature 97.4 F [36.3 C] (05/31/2024 11:47) Pain 0 (05/31/2024 11:47) Height 73 in [185.4 cm] (05/31/2024 11:47) Weight 328.2 lb [148.87 kg] (05/31/2024 11:47) BMI BMI: 43.4 REVIEW OF SYSTEMS: ENT: No sore throat, no cough CARDIOVASCULAR: No chest pain, no palps RESPIRATORY: No SOB, no wheezing GASTROINTESTINAL: No abd pain, no N/V/D GENITOURINARY: No urinary symptoms MUSCULOSKELETAL: No joint pain PSYCHIATRIC: No anxiety, no depression NEUROLOGIC: No H/A, no numbness, no weakness EXAMINATION: GENERAL: WD/WN in NAD HEENT: Moist mucosa NECK: Supple HEART: RRR, S1-S2, no murmurs LUNGS: CTA B/L ABDOMEN: Soft, NT/ND PERIPH PULSES: 2+ B/L EXTREMITIES: FROM x 4, no edema NEUROLOGIC: AAO x3, no focal findings PSYCHIATRIC: Good eye contact, affect normal ASSESSMENT/PLAN: Adult Annual General Wellness Exam -advised eye exams yearly and dental exams Q6 mths -advised regular CV exercise for 30 mins on most days of the week -advised heart healthy well balanced diet and lifestyle habits 1. Hypertension: on losartan 100mg/day, will send home BP machine w/thigh cuff to track, if BP consistently >140/90, will need to add a second BP agent 2. Hyperlipidemia: moderately elevated, discussed starting statin therapy, he is in agreement to starting atorvastatin 20mg/QHS, advised OTC CoQ10 300mg/day Collection DT Spec CHOL HDL CHO/HDL LDL-c TRIG 05/12/2024 07:47 SERUM 246 H 33 L 7.5 182 H 153 H 3. Obesity: BMI ~43, encouraged wt loss 4. Colonoscopy Screening: appt was scheduled for 05/24/24 w/Dr Acosta 5. Chronic Esophagitis: on omeprazole 20mg BID x lifelong per GI/Dr Mcknight 6. Asthma: dxed in 2007, on advair 500/50 BID and albuterol prn 7. Erectile Dysfunction/Decreased Libido: on sildenafil 100mg/day 8. Testicular Hypogonadism: referred back to Dr Shelley at [facility] to restart his testosterone txs (per vet request), appt scheduled 06/03/24 9. Gout: on allopurinol 200mg/QAM and 300mg/QPM 10. Sleep Apnea: dxed 2013, compliant with CPAP 11. Low Back Pain: sees chiropractor and accupuncturist for txs prn 12. Hx Left Knee Surgery: s/p arthroscopic partial medial meniscal repair, arthroscopic chondroplasty of the undersurface of the patella as well as the medial femoral condyle performed on 05/16/[address] Mart Garcia at [facility] 13. Left Bundle Branch Block: incidental finding on EKG for pre-op for orthopedic surgery recently, he is asymptomatic - no dizziness, fainting, SOB, angina, A Fib, or V tach, will order ECHO and will refer to cardiology for further eval/treatment EKG today: NSR @66 BPM, left bundle branch block FOLLOW UP: 3 mths - FBW prior - Htn/Lipids/WT ========= UPCOMING APPOINTMENTS: 06/03/2024 09:50 COM CARE-UROLOGY 04/12/2025 10:00 CWM/NO/OPTOMETRY/MERHAR No barriers; Patient understands and [...] (local) and dispensed from another [place] or [facility] facility (remote) as well as inpatient orders [...] list may not be complete. Please check [employer]. Allergies/ADRs (Tool #5) FACILITY ALLERGY/ADR -------- CLNCL/HLTH MADDY REPT EFF [id number] [facility] M[facility]AM [facility] MUSHROOMS [facility]ENICILLIN [facility] MELOXICAM [facility] MUSHROOMS WHITE [facility] PENICILLIN Med Recon NoGlossary (Tool #1) INCLUDED IN THIS LIST: Alphabetical list of active outpatient prescriptions dispensed from this [place] (local) and dispensed from another [place] or [facility] facility (remote) as well as inpatient orders (local pending and active), local clinic medications, locally documented non-VA medications, and local prescriptions that have or been discontinued in the past 90 days. Non-VA Meds Last Documented On: Data not found NOTE The display of VA prescriptions dispensed from another [place] or [facility] facility (remote) is limited to active outpatient prescription entries matched to National Drug File at the originating site and may not include some items such as investigational drugs, compounds, etc. NOT INCLUDED IN THIS LIST: Medications self-entered by the patient into personal health records (i.e. [employer]) are NOT included in this list. Non-VA medications documented outside this [place], remote inpatient orders (regardless of status) and remote clinic medications are NOT included in this list. The patient and provider must always discuss medications the patient is taking, regardless of where the medication was dispensed or obtained. ------ OUTPT ACETAMINOPHEN 500MG TAB (Status = Discontinued) TAKE TWO TABLETS BY MOUTH THREE TIMES DAILY NEEDED FOR PAIN Rx# [id number] Last Released: 02/15/24 Qty/Days Supply: 200 Rx Expiration Date: 03/11/24 Refills Remainin Indication: FOR PAIN OUTPT ACETAMINOPHEN 500MG TAB (Status = Active) TAKE TWO TABLETS BY MOUTH THREE TIMES DAILY NEEDED FOR PAIN Rx# [id number] Last Released: 05/30/24 Qty/Days Supply: 20030 Rx Expiration Date: 03/25/25 Refills Remainin Indication: FOR PAIN OUTPT ALBUTEROL 90MCG (CFC-F) 200D ORAL INHL (Status = ) INHALE 2 PUFFS BY MOUTH FOUR TIMES DAILY NEEDED FOR SHORTNESS OF BREATH Rx# [id number] Last Released: 03/08/24 Qty/Days Supply: Rx Expiration Date: 05/12/24 Refills Remainin OUTPT BUPRENORPHINE 150MCG BUCCAL FILM (Status = Discontinued) PLACE ONE FILM BETWEEN CHEEK AND GUM UNTIL DISSOLVED THREE TIMES A DAY FOR PAIN Rx# [id number] Last Released: 02/13/24 Qty/Days Supply: 90 Rx Expiration Date: 06/24/24 Refills Remainin Indication: FOR PAIN OUTPT BUPRENORPHINE 300MCG BUCCAL FILM (Status = Active) PLACE ONE FILM BETWEEN CHEEK AND GUM UNTIL DISSOLVED TWICE DAILY FOR PAIN Rx# [id number] Last Released: 05/30/24 Qty/Days Supply: 60/30 Rx Expiration Date: 09/24/24 Refills Remainin Indication: FOR PAIN OUTPT CHOLECALCIF 50MCG (D3-2,000UNIT) TAB (Status = ) TAKE TWO TABLETS BY MOUTH EVERY DAY FOR VITAMIN SUPPLEMENTATION Rx# [id number] Last Released: 03/08/24 Qty/Days Supply: 200/ Rx Expiration Date: 05/12/24 Refills Remainin OUTPT CLOMIPHENE CITRATE 50MG TAB (Status = Active) TAKE ONE-HALF TABLET BY MOUTH ONCE DAILY Rx# [id number] Last Released: 02/12/24 Qty/Days Supply: Rx Expiration Date: 11/03/24 Refills Remainin OUTPT DICLOFENAC NA 1% TOP GEL (Status = ) APPLY 4 GRAMS TOPICALLY FOUR TIMES A DAY FOR OSTEOARTHRITIS - USE DOSING CARD PROVIDED IN BOX Rx# [id number] Last Released: 03/11/23 Qty/Days Supply: 300/30 Rx Expiration Date: 03/11/24 Refills Remainin Indication: FOR JOINT PAIN OUTPT FLUTICAS 500/SALMETEROL 50 INHL DISK 60 (Status = ) INHALE 1 PUFF BY MOUTH TWICE DAILY - RINSE MOUTH AFTER USE Rx# [id number] Last Released: 03/08/24 Qty/Days Supply: 3 Rx Expiration Date: 05/12/24 Refills Remainin OUTPT LIDOCAINE 5% OINT (Status = Active) APPLY THIN LAYER TOPICALLY TWICE DAILY TO THREE TIMES A DAY NEEDED FOR MINOR SKIN WOUND PAIN Rx# [id number] Last Released: 05/30/24 Qty/Days Supply: 105 Rx Expiration Date: 08/14/24 Refills Remainin Indication: FOR MINOR SKIN WOUND PAIN OUTPT LOSARTAN 100MG TAB (Status = ) TAKE ONE TABLET BY MOUTH ONCE DAILY FOR BLOOD PRESSURE/HEART Rx# [id number] Last Released: 02/26/24 Qty/Days Supply: Rx Expiration Date: 05/12/24 Refills Remainin OUTPT MONTELUKAST NA 10MG TAB (Status = Active/Suspended) TAKE ONE TABLET BY MOUTH AT BEDTIME FOR CONTROLLER MEDICATION FOR ASTHMA Rx# [id number] Last Released: 04/07/24 Qty/Days Supply: Rx Expiration Date: 10/29/24 Refills Remainin Indication: FOR CONTROLLER MEDICATION FOR ASTHMA OUTPT NAPROXEN 500MG TAB (Status = Active) TAKE ONE TABLET BY MOUTH TWICE DAILY TAKE WITH FOOD Rx# [id number] Last Released: 05/30/24 Qty/Days Supply: Rx Expiration Date: 03/02/25 Refills Remainin Indication: FOR INFLAMMATION OUTPT OMEPRAZOLE 20MG EC CAP (Status = ) TAKE ONE CAPSULE BY MOUTH TWICE DAILY Rx# [id number] Last Released: 03/08/24 Qty/Days Supply: 180 Rx Expiration Date: 05/12/24 Refills Remainin OUTPT PREGABALIN 100MG ORAL CAP (Status = ) TAKE ONE CAPSULE BY MOUTH TWICE DAILY FOR PAIN Rx# [id number] Last Released: 02/12/24 Qty/Days Supply: Rx Expiration Date: 05/26/24 Refills Remainin Indication: FOR PAIN OUTPT TESTOSTERONE CYP 200MG/ML 1ML IN OIL (Status = ) INJECT 0.5ML (100MG) INTRAMUSCULARLY ONCE A WEEK VIALS ARE ONLY TO BE USED ONE TIME Rx# [id number] Last Released: 10/19/23 Qty/Days Supply: 12/05 Rx Expiration Date: 04/16/24 Refills Remainin ------ SUPPLIES ------ /dheeraj/ EHSAN OVALLES MD Primary Care Physician Signed: 05/31/2024 12:45 ADEN VALLECILLO May 31, 2024 11:51 AM CARDIOLOGY DIAGNOS TIC STUDY CONSULT: LOCAL TITLE: CONSULT REPORT/EKG STANDARD TITLE: CARDIOLOGY DIAGNOSTIC STUDY CONSULT DATE OF NOTE: MAY 31, 2024@11:51 ENTRY DATE: MAY 31, 2024@11:51:57 AUTHOR: ADEN VALLECILLO EXP COSIGNER: URGENCY: STATUS: COMPLETED EKG tracing was performed for diagnosis of l bundle branch block ordered by EHSAN OVALLES. Order Information To Service: EKG TRACING/SPOPC OUTPT Attention: EHSAN OVALLES From Service: CWM/SO/PACT 10 Requesting Provider: EHSAN OVALLES Service is to be rendered on an OUTPATIENT basis Place: Pay Agent's choice Urgency: Routine Clinically Ind. Date: May 31, 2024 DST ID: Orderable Item: EKG TRACING/SPOPC OUTPT Consult: Consult Request Provisional Diagnosis: Left Bundle-Branch Block, unspecified(ICD-10-CM I44.7) Reason For Request: Reason for EKG: left bundle branch block /dheeraj/ ADEN VALLECILLO LPN PACT 10 Signed: 05/31/2024 11:52 ADEN VALLECILLO May 31, 2024 11:48 AM PREVENTIVE MEDICIN E NURSING NOTE: LOCAL TITLE: CLINICAL REMINDERS/NURSING STANDARD TITLE: PREVENTIVE MEDICINE NURSING NOTE DATE OF NOTE: MAY 31, 2024@11:48 ENTRY DATE: MAY 31, 2024@11:48:43 AUTHOR: ADEN VALLECILLO EXP COSIGNER: URGENCY: STATUS: COMPLETED Suicide Screen: C-SSRS Screening Hand Suicide Severity Rating Scale (C-SSRS) screener 1. Over the past month, have you wished you were or wished you could go to sleep and not wake up? No 2. Over the past month, have you had any actual thoughts of killing yourself? No 3. Over the past month, have you been thinking about how you might do this? Response not required due to responses to other questions. 4. Over the past month, have you had these thoughts and had some intention of acting on them? Response not required due to responses to other questions. 5. Over the past month, have you started to work out or worked out the details of how to kill yourself? Response not required due to responses to other questions. 6. If yes, at any time in the past month did you intend to carry out this plan? Response not required due to responses to other questions. 7. In your lifetime, have you ever done anything, started to do anything, or prepared to do anything to end your life (for example, collected pills, obtained a gun, gave away valuables, went to the roof but didn't jump)? No 8. If YES, was this within the past 3 months? Response not required due to responses to other questions. BMI>30/>24.99 High Risk: Patient declines to discuss weight management. Patient declined weight discussion. Discussed revisiting at a future visit. Depression Screening: Perform PHQ-2 A PHQ-2 screen was performed. The score was 0 which is a negative screen for depression. Over the past two weeks, how often have you been bothered by the following problems? 1. Little interest or pleasure in doing things Not at all 2. Feeling down, depressed, or hopeless Not at all Tobacco Use Screening: The patient has never used tobacco. Influenza Immunization: Deferral / Refusal The patient declines to receive the recommended dose of seasonal influenza vaccine. Immunization: INFLUENZA, UNSPECIFIED FORMULATION Refusal Reason: PATIENT DECISION Patient refuses all immunization(s) in the FLU group Date Documented: 05/31/24 11:50 Alcohol Use Screen (AUDIT-C): Alcohol Screen: SCREEN FOR ALCOHOL (AUDIT-C) An alcohol screening test (AUDIT-C) was negative (score=0). 1. How often did you have a drink containing alcohol in the past year? Consider a drink to be a 12 ounce can or bottle of regular beer, 8 ounces of malt liquor, a 5 ounce glass of table wine, or a 1.5 ounce shot of liquor (like scotch, gin, or vodka). Never 2. How many drinks containing alcohol did you have on a typical day when you were drinking in the past year? Response not required due to responses to other questions. 3. How often did you have six or more drinks on one occasion in the past year? Response not required due to responses to other questions. COVID-19 Immunization: Referred to another clinic for immunization (desired vaccine unavailable at this location) Herpes Zoster (Shingles) Vaccine: The patient declines to receive the recommended dose of zoster (shingles) vaccine. Immunization: ZOSTER RECOMBINANT Refusal Reason: PATIENT DECISION Patient refuses all immunization(s) in the ZOSTER group Date Documented: 05/31/24 11:51 /dheeraj/ ADEN VALLECILLO LPN PACT 10 Signed: 05/31/2024 11:51 ADEN VALLECILLO SUMAS May 31, 2024 09:31 AM PHYSICIAN NOTE: LOCAL TITLE: MD NOTE STANDARD TITLE: PHYSICIAN NOTE DATE OF NOTE: MAY 31, 2024@09:31 ENTRY DATE: MAY 31, 2024@09:31:40 AUTHOR: EHSAN OVALLES EXP COSIGNER: URGENCY: STATUS: COMPLETED NOTE Has ADDENDA HISTORY OF PRESENT ILLNESS: COLBY HARTLEY is a 54 yo MALE who [facility] at [facility] for his annual wellness exam. Labs completed. Active problems - Computerized Problem List is the source for the followin. Colonoscopy Screening 2. Left knee pain 3. Chronic low back pain 4. Chronic esophagitis 5. Obesity 6. Constrictive tenosynovitis 7. Erectile dysfunction 8. Obstructive sleep apnea syndrome 9. Hyperlipidemia 10. Posttraumatic stress disorder 11. Depression 12. Hypertension 13. Gout 14. Traumatic brain injury 15. Asthma The following VA and Non-VA meds were reconciled with patient: Active Outpatient Medications (including Supplies): Issue Date Status Last Fill Active Outpatient Medications Refills Expiration ======= 1) ACETAMINOPHEN 500MG TAB Qty: 200 for 30 ACTIVE Issu:03-24-24 days Sig: TAKE TWO TABLETS BY MOUTH Refills: 4 Last:05-30-24 THREE TIMES DAILY NEEDED FOR PAIN Expr:03-25-25 2) BUPRENORPHINE 300MCG BUCCAL FILM Qty: ACTIVE Issu:03-24-24 60 for 30 days Sig: PLACE ONE FILM Refills: 2 Last:05-30-24 BETWEEN CHEEK AND GUM UNTIL DISSOLVED Expr:09-24-24 TWICE DAILY FOR PAIN 3) CLOMIPHENE CITRATE 50MG TAB Qty: 30 for ACTIVE Issu:11-03-23 60 days Sig: TAKE ONE-HALF TABLET BY Refills: 0 Last:02-21-24 MOUTH ONCE DAILY Expr:11-03-24 4) LIDOCAINE 5% OINT Qty: 105 for 30 days ACTIVE Issu:08-14-23 Sig: APPLY THIN LAYER TOPICALLY TWICE Refills: 1 Last:05-30-24 DAILY TO THREE TIMES A DAY NEEDED Expr:08-14-24 FOR MINOR SKIN WOUND PAIN 5) MONTELUKAST NA 10MG TAB Qty: 90 for 90 ACTIVE (S) Issu:10-29-23 days Sig: TAKE ONE TABLET BY MOUTH AT Refills: 0 Last:07-15-24 BEDTIME FOR CONTROLLER MEDICATION FOR Expr:10-29-24 ASTHMA 6) NAPROXEN 500MG TAB Qty: 60 for 30 days ACTIVE Issu:03-01-24 Sig: TAKE ONE TABLET BY MOUTH TWICE Refills: 1 Last:05-30-24 DAILY TAKE WITH FOOD Expr:03-02-25 ALLERGIES: ========= PENICILLIN, MUSHROOMS, MELOXICAM LAB HISTORY: CHEM 7 TREND Collection DT Spec GLUCOSE BUN CREATIN Sodium K+/Pot CL CO2 05/12/2024 07:47 SERUM 88 22 1.09 141 4.4 108 23 11/09/2023 08:51 SERUM 97 25 1.12 141 4.5 104 28 05/08/2023 08:47 SERUM 92 28 H 1.02 139 4.2 104 26 11/11/2022 07:51 SERUM 91 24 1.05 141 4.4 104 26 05/22/2022 07:34 SERUM 95 21 1.14 140 4.2 104 27 CBC TREND Collection DT Spec WBC RBC HGB HCT MCV MCH PLT 05/12/2024 07:47 BLOOD 8.27 5.05 15.2 45.6 90.3 30.1 220 05/08/2023 08:47 BLOOD 8.78 4.66 14.0 43.3 92.9 30.0 270 05/22/2022 07:34 BLOOD 8.36 4.70 14.3 43.4 92.3 30.4 279 05/17/2021 07:15 BLOOD 9.52 4.86 14.7 44.6 91.8 30.2 284 05/02/2020 08:38 BLOOD 9.40 4.73 14.7 44.0 93.0 31.1 269 HEMOGLOBIN A1C TREND Collection DT Spec HGBA1c 05/12/2024 07:47 BLOOD 5.0 05/08/2023 08:47 BLOOD 5.2 05/22/2022 07:34 BLOOD 5.2 05/17/2021 07:15 BLOOD 5.5 05/02/2020 08:38 BLOOD 5.6 LIPID PANEL TREND Collection DT Spec CHOL HDL CHO/HDL LDL-c TRIG 05/12/2024 07:47 SERUM 246 H 33 L 7.5 182 H 153 H 11/09/2023 08:51 SERUM 286 H 38 L 7.5 226 H 111 05/08/2023 08:47 SERUM 203 H 36 L 5.6 149 H 91 11/11/2022 07:51 SERUM 214 H 38 L 5.6 158 H 89 05/22/2022 07:34 SERUM 197 36 L 5.5 145 H 79 LIVER PANEL TREND Collection DT Spec AST ALT T BILI ALK JORGE LUIS T. PROT ALBUMIN 05/12/2024 07:47 SERUM 20 37 0.4 59 6.6 3.8 11/09/2023 08:51 SERUM 21 40 0.6 68 7.2 4.0 05/08/2023 08:47 SERUM 19 38 0.7 74 7.4 4.2 11/11/2022 07:51 SERUM 19 38 0.7 61 7.1 4.1 05/22/2022 07:34 SERUM 17 34 1.0 68 7.2 4.0 Collection DT Spec TSH 05/12/2024 07:47 SERUM 4.05 HISTORY: PERIOD OF SERVICE - [facility] FROM May TO Aug COMBAT SERVICE INDICATED: No VITAL SIGNS: Blood Pressure 148/81 (05/31/2024 11:47) Pulse 77 (05/31/2024 11:47) Respiration 16 (05/31/2024 11:47) Pulse Oximetry 97% (05/31/2024 11:47) Temperature 97.4 F [36.3 C] (05/31/2024 11:47) Pain 0 (05/31/2024 11:47) Height 73 in [185.4 cm] (05/31/2024 11:47) Weight 328.2 lb [148.87 kg] (05/31/2024 11:47) BMI BMI: 43.4 REVIEW OF SYSTEMS: ENT: No sore throat, no cough CARDIOVASCULAR: No chest pain, no palps RESPIRATORY: No SOB, no wheezing GASTROINTESTINAL: No abd pain, no N/V/D GENITOURINARY: No urinary symptoms MUSCULOSKELETAL: No joint pain PSYCHIATRIC: No anxiety, no depression NEUROLOGIC: No H/A, no numbness, no weakness EXAMINATION: GENERAL: WD/WN in NAD HEENT: Moist mucosa NECK: Supple HEART: RRR, S1-S2, no murmurs LUNGS: CTA B/L ABDOMEN: Soft, NT/ND PERIPH PULSES: 2+ B/L EXTREMITIES: FROM x 4, no edema NEUROLOGIC: AAO x3, no focal findings PSYCHIATRIC: Good eye contact, affect normal ASSESSMENT/PLAN: Adult Annual General Wellness Exam -advised eye exams yearly and dental exams Q6 mths -advised regular CV exercise for 30 mins on most days of the week -advised heart healthy well balanced diet and lifestyle habits 1. Hypertension: on losartan 100mg/day, will send home BP machine w/thigh cuff to track, if BP consistently >140/90, will need to add a second BP agent 2. Hyperlipidemia: moderately elevated, discussed starting statin therapy, he is in agreement to starting atorvastatin 20mg/QHS, advised OTC CoQ10 300mg/day Collection DT Spec CHOL HDL CHO/HDL LDL-c TRIG 05/12/2024 07:47 SERUM 246 H 33 L 7.5 182 H 153 H 3. Obesity: BMI ~43, encouraged wt loss 4. Colonoscopy Screening: appt was scheduled for 05/24/24 w/Dr Acosta 5. Chronic Esophagitis: on omeprazole 20mg BID x lifelong per GI/Dr Mcknight 6. Asthma: dxed in 2007, on advair 500/50 BID and albuterol prn 7. Erectile Dysfunction/Decreased Libido: on sildenafil 100mg/day 8. Testicular Hypogonadism: referred back to Dr Shelley at [facility] to restart his testosterone txs (per vet request), appt scheduled 06/03/24 9. Gout: on allopurinol 200mg/QAM and 300mg/QPM 10. Sleep Apnea: dxed 2013, compliant with CPAP 11. Low Back Pain: sees chiropractor and accupuncturist for txs prn 12. Hx Left Knee Surgery: s/p arthroscopic partial medial meniscal repair, arthroscopic chondroplasty of the undersurface of the patella as well as the medial femoral condyle performed on 05/16/[address] Mart Garcia at [facility] 13. Left Bundle Branch Block: incidental finding on EKG for pre-op for orthopedic surgery recently, he is asymptomatic - no dizziness, fainting, SOB, angina, A Fib, or V tach, will order ECHO and will refer to cardiology for further eval/treatment EKG today: NSR @66 BPM, left bundle branch block FOLLOW UP: 3 mths - FBW prior - Htn/Lipids/WT ========= UPCOMING APPOINTMENTS: 06/03/2024 09:50 [facility] 04/12/2025 10:00 CWM/NO/OPTOMETRY/MERHAR No barriers; Patient understands and [...] this [facility] (local) and dispensed from another [place] or [facility] facility (remote) as well as [...] FACILITY ALLERGY/ADR -------- CLNCL/HLTH MADDY REPT EFF [id number] [facility] MEL[facility]AM [facility] MUSHROOM[facility] [place] [facility] [place] [facility] MUSHRO[facility]S [place] [facility] PENICILLIN Med Recon NoGlossary (Tool #1) INCLUDED IN THIS LIST: Alphabetical list of active outpatient prescriptions dispensed from this VA (local) and dispensed from another [place] or [facility] facility (remote) as well as inpatient orders (local pending and active), local clinic medications, locally documented non-VA medications, and local prescriptions that have or been discontinued in the past 90 days. Non-VA Meds Last Documented On: Data not found NOTE The display of VA prescriptions dispensed from another VA or [facility]D facility (remote) is limited to active outpatient prescription entries matched to National Drug File at the originating site and may not include some items such as investigational drugs, compounds, etc. NOT INCLUDED IN THIS LIST: Medications self-entered by the patient into personal health records (i.e. [employer]) are NOT included in this list. Non-VA medications documented outside this [place], remote inpatient orders (regardless of status) and remote clinic medications are NOT included in this list. The patient and provider must always discuss medications the patient is taking, regardless of where the medication was dispensed or obtained. ------ OUTPT ACETAMINOPHEN 500MG TAB (Status = Discontinued) TAKE TWO TABLETS BY MOUTH THREE TIMES DAILY NEEDED FOR PAIN Rx# [id number] Last Released: 02/15/24 Qty/Days Supply: 20030 Rx Expiration Date: 03/11/24 Refills Remainin Indication: FOR PAIN OUTPT ACETAMINOPHEN 500MG TAB (Status = Active) TAKE TWO TABLETS BY MOUTH THREE TIMES DAILY NEEDED FOR PAIN Rx# [id number] Last Released: 05/30/24 Qty/Days Supply: 20030 Rx Expiration Date: 03/25/25 Refills Remainin Indication: FOR PAIN OUTPT ALBUTEROL 90MCG (CFC-F) 200D ORAL INHL (Status = ) INHALE 2 PUFFS BY MOUTH FOUR TIMES DAILY NEEDED FOR SHORTNESS OF BREATH Rx# [id number] Last Released: 03/08/24 Qty/Days Supply: Rx Expiration Date: 05/12/24 Refills Remainin OUTPT BUPRENORPHINE 150MCG BUCCAL FILM (Status = Discontinued) PLACE ONE FILM BETWEEN CHEEK AND GUM UNTIL DISSOLVED THREE TIMES A DAY FOR PAIN Rx# [id number] Last Released: 02/13/24 Qty/Days Supply: 90 Rx Expiration Date: 06/24/24 Refills Remainin Indication: FOR PAIN OUTPT BUPRENORPHINE 300MCG BUCCAL FILM (Status = Active) PLACE ONE FILM BETWEEN CHEEK AND GUM UNTIL DISSOLVED TWICE DAILY FOR PAIN Rx# [id number] Last Released: 05/30/24 Qty/Days Supply: 60 Rx Expiration Date: 09/24/24 Refills Remainin Indication: FOR PAIN OUTPT CHOLECALCIF 50MCG (D3-2,000UNIT) TAB (Status = ) TAKE TWO TABLETS BY MOUTH EVERY DAY FOR VITAMIN SUPPLEMENTATION Rx# [id number] Last Released: 03/08/24 Qty/Days Supply: 200/ Rx Expiration Date: 05/12/24 Refills Remainin OUTPT CLOMIPHENE CITRATE 50MG TAB (Status = Active) TAKE ONE-HALF TABLET BY MOUTH ONCE DAILY Rx# [id number] Last Released: 02/12/24 Qty/Days Supply: 30 Rx Expiration Date: 11/03/24 Refills Remainin OUTPT DICLOFENAC NA 1% TOP GEL (Status = ) APPLY 4 GRAMS TOPICALLY FOUR TIMES A DAY FOR OSTEOARTHRITIS - USE DOSING CARD PROVIDED IN BOX Rx# [id number] Last Released: 03/11/23 Qty/Days Supply: 300/30 Rx Expiration Date: 03/11/24 Refills Remainin Indication: FOR JOINT PAIN OUTPT FLUTICAS 500/SALMETEROL 50 INHL DISK 60 (Status = ) INHALE 1 PUFF BY MOUTH TWICE DAILY - RINSE MOUTH AFTER USE Rx# [id number] Last Released: 03/08/24 Qty/Days Supply: Rx Expiration Date: 05/12/24 Refills Remainin OUTPT LIDOCAINE 5% OINT (Status = Active) APPLY THIN LAYER TOPICALLY TWICE DAILY TO THREE TIMES A DAY NEEDED FOR MINOR SKIN WOUND PAIN Rx# [id number] Last Released: 05/30/24 Qty/Days Supply: 105 Rx Expiration Date: 08/14/24 Refills Remainin Indication: FOR MINOR SKIN WOUND PAIN OUTPT LOSARTAN 100MG TAB (Status = ) TAKE ONE TABLET BY MOUTH ONCE DAILY FOR BLOOD PRESSURE/HEART Rx# [id number] Last Released: 02/26/24 Qty/Days Supply: Rx Expiration Date: 05/12/24 Refills Remainin OUTPT MONTELUKAST NA 10MG TAB (Status = Active/Suspended) TAKE ONE TABLET BY MOUTH AT BEDTIME FOR CONTROLLER MEDICATION FOR ASTHMA Rx# [id number] Last Released: 04/07/24 Qty/Days Supply: Rx Expiration Date: 10/29/24 Refills Remainin Indication: FOR CONTROLLER MEDICATION FOR ASTHMA OUTPT NAPROXEN 500MG TAB (Status = Active) TAKE ONE TABLET BY MOUTH TWICE DAILY TAKE WITH FOOD Rx# [id number] Last Released: 05/30/24 Qty/Days Supply: 6030 Rx Expiration Date: 03/02/25 Refills Remainin Indication: FOR INFLAMMATION OUTPT OMEPRAZOLE 20MG EC CAP (Status = ) TAKE ONE CAPSULE BY MOUTH TWICE DAILY Rx# [id number] Last Released: 03/08/24 Qty/Days Supply: 180 Rx Expiration Date: 05/12/24 Refills Remainin OUTPT PREGABALIN 100MG ORAL CAP (Status = ) TAKE ONE CAPSULE BY MOUTH TWICE DAILY FOR PAIN Rx# [id number] Last Released: 02/12/24 Qty/Days Supply: Rx Expiration Date: 05/26/24 Refills Remainin Indication: FOR PAIN OUTPT TESTOSTERONE CYP 200MG/ML 1ML IN OIL (Status = ) INJECT 0.5ML (100MG) INTRAMUSCULARLY ONCE A WEEK VIALS ARE ONLY TO BE USED ONE TIME Rx# [id number] Last Released: 10/19/23 Qty/Days Supply: 12/05 Rx Expiration Date: 04/16/24 Refills Remainin ------ SUPPLIES ------ /es/ EHSAN OVALLES MD Primary Care Physician Signed: 05/31/2024 12:45 06/13/2024 ADDENDUM STATUS: COMPLETED Echo completed on results below: Summary 1. Normal LV size, wall motion, and function; LVEF: 60%, biplane Baca's. Mild LVH. 2. Normal LV diastolic function for age. 3. Moderately dilated RV with normal systolic function. 4. Mildly enlarged left atrium. 5. Structurally normal valves with mild mitral regurgitation. 6. Normal left and right atrial filling pressures. /dheeraj/ ADEN VALLECILLO LPN PACT 10 Signed: 06/13/2024 08:13 Receipt Acknowledged By: 06/14/2024 15:35 /dheeraj/ EHSAN OVALLES MD Primary Care Physician 06/14/2024 ADDENDUM STATUS: COMPLETED Called and informed him of the results of his ECHO performed 06/07/24. /dheeraj/ EHSAN OVALLES MD Primary Care Physician Signed: 06/14/2024 15:40 07/20/2024 ADDENDUM STATUS: COMPLETED Called and spoke to about the following issues: 1. Atorvastatin is causing too much muscle aches despite taking CoQ10. Will D/C atorvastatin and replace it with rosuvastatin 20mg/QHS. Will s4nd Rx through the mail. 2. GI will not perform a colonoscopy under general anesthesia without cardiology approval due to recent finding of LBBB by ortho on an EKG. ECHO performed 06/07/24. Will provide letter of medical clearance for procedure and mail it to vet. /dheeraj/ EHSAN OVALLES MD Primary Care Physician Signed: 07/20/2024 12:24 EHSAN OVALLES
--- OUTSIDE RECORDS SUMMARY | 2024-08-18 10:01 | XMS_ITS ---
Author Name [facility] [place] Organization [facility] [place] Address [address] [place] [address] Care Team Providers Care Site Interpreter Name Role Phone EHSAN OVALLES Primary Care [...] PART A December 08, 2013 PART A [id number] BRIGID RAMOS PATIENT MEDICARE (WNR) MEDICARE (M) PART A December 08, 2013 PART A [id number] [phone] BRIGID RAMOS PATIENT Selected Encounter This section includes the information on record at [place] for the Encounter. Date/Time Encounter Type Encounter Description Reason Pro vider Source May 04, 2024 12:00 AM Outpatient Encounter COMMUNITY CARE CONSULT [...] 24, 2024 12:00 PM AMBULATORY - NONE [facility] [place] [facility] May 31, 2024 11:30 AM AMBULATORY - MEDICINE [facility] [place] [facility] Jun 03, 2024 09:50 AM AMBULATORY - MEDICINE [facility] [place] [facility] Jun 07, 2024 11:30 AM AMBULATORY - NONE [facility] [place] [facility] Jul 27, 2024 02:30 PM AMBULATORY - REHAB MEDICIN E [facility] [place] [facility] Aug 30, 2024 11:00 AM AMBULATORY - MEDICINE [facility] [place] [facility] Sep 14, 2024 01:00 PM AMBULATORY - REHAB MEDICIN E [facility] [place] [facility] Active, Pending, and Scheduled Orders This section includes a listing of several types of active, pending, and scheduled orders, including clinic medications orders, diagnostic test orders, procedure orders and consult orders; where the start date of the order is 45 days before the date of the Encounter or 45 days after the date of theEncounter. The data comes from all [place] treatment facilities. Test Date/Time Test Type Test Details Facility Name May 16, 2024 02:21 PM Consult Order COMMUNITY CARE-UROLOGY Cons Drupal Web Developer's Choice [facility] Lab Results: +/- 30 days of the encounter This section includes the Chemistry and Hematology Lab Results on record with [facility] for the patient. Radiology Reports and Pathology Reports are provided separately, in subsequent sections. Lab Results This section contains the Chemistry/Hematology Results that were resulted 30 days before or 30 daysafter the date of the Encounter. Date/Time Source Result Type Result - Unit Interpretation Reference Range Comment May 12, 2024 07:53 AM [facility] [place] METHADONE SCREEN Specimen Type: URINE Comment: MALCOLM test are qualitative, any L or H flags only indicate a [facility] alert was sent. Ordering Provider: DEE DEE WILSON Report Released Date/Time: May 11, 2024 03:52 PM Reporting Lab: [address] [address] Performing Lab: [facility] [address] [facility] [address] METHADONE SCREEN None detected(Nega tive) L Negative May 12, 2024 07:53 AM [facility] ALCOHOL, ETHYL URINE PANEL Specimen Type: URINE [...] May 11, 2024 03:52 PM Reporting Lab: [address] [address] Performing Lab: [address] [address] ALCOHOL, ETHYL URINE NONE-DETECTED mg/dL NONE-DETEC SHAHZAD, cutoff = 10 mg/dL PH, MALCOLM 5.6 [pH] 4-10 CREATININE, MALCOLM 162.14 mg/dL >20 SP.GRAVITY, MALCOLM 1.021 H 1.00 3-1.02 0 May 12, 2024 07:53 AM [facility] FENTANYL SCREEN PANEL Specimen Type: URINE Comment: [...] May 11, 2024 03:52 PM Reporting Lab: [address] [address] Performing Lab: [address] [address] FENTANYL SCREEN NONE-DETECTE D ng/mL Negative: Cutoff = 1.00 ng/mL PH, MALCOLM 5.6 [pH] 4-10 CREATININE, MALCOLM 156.70 mg/dL >20 SP.GRAVITY, MALCOLM 1.020 1.00 3-1.02 0 May 12, 2024 07:53 AM [facility] AMPHETAMINES SCREEN PANEL Specimen Type: URINE Comment: [...] May 11, 2024 03:52 PM Reporting Lab: [address] [address] Performing Lab: [address] [address] AMPHETAMINES SCREEN NONE-DETECTED None-Detec shahzad, Cutoff = 1000 ng/mL PH, MALCOLM 5.6 [pH] 4-10 CREATININE, MALCOLM 162.14 mg/dL >20 SP.GRAVITY, MALCOLM 1.021 H 1.00 3-1.02 0 May 12, 2024 07:53 AM [facility] BUPRENORPHINE SCREEN PANEL Specimen Type: URINE Comment: [...] May 11, 2024 03:52 PM Reporting Lab: [address] [address] Performing Lab: [address] [address] BUPRENORPHINE (URINE) NONE-DETECTED None Detected, Cutoff = 10.0 ng/mL PH, MALCOLM 5.6 [pH] 4-10 CREATININE, MALCOLM 162.14 mg/dL >20 SP.GRAVITY, MALCOLM 1.021 H 1.00 3-1.02 0 May 12, 2024 07:53 AM [facility] BENZODIAZEPINES SCREEN PANEL Specimen Type: URINE Comment: [...] May 11, 2024 03:52 PM Reporting Lab: [address] [address] Performing Lab: [address] BENZODIAZEPINES SCREEN NONE-DETECTED None-Detec shahzad, Cutoff = 200 ng/mL PH, MALCOLM 5.6 [pH] 4-10 CREATININE, MALCOLM 162.14 mg/dL >20 SP.GRAVITY, MALCOLM 1.021 H 1.00 3-1.02 0 May 12, 2024 07:53 AM [facility] COCAINE SCREEN PANEL Specimen Type: URINE Comment: [...] May 11, 2024 03:52 PM Reporting Lab: [address] [address] Performing Lab: [address] [place] [address] COCAINE SCREEN NONE-DETECTED N one-Detec shahzad,Cutoff = 300 ng/mL PH, MALCOLM 5.6 [pH] 4-10 CREATININE, MALCOLM 162.14 mg/dL >20 SP.GRAVITY, MALCOLM 1.021 H 1.00 3-1.02 0 May 12, 2024 07:53 AM [facility] OXYCODONE SCREEN PANEL Specimen Type: URINE Comment: [...] May 11, 2024 03:52 PM Reporting Lab: [address] [address] Performing Lab: [address] [address] OXYCODONE SCREEN NONE-DETECTED None-Detec shahzad, Cutoff = 100 ng/mL PH, MALCOLM 5.6 [pH] 4-10 CREATININE, MALCOLM 162.14 mg/dL >20 SP.GRAVITY, MALCOLM 1.021 H 1.00 3-1.02 0 May 12, 2024 07:53 AM [facility] OPIATES SCREEN PANEL Specimen Type: URINE Comment: [...] May 11, 2024 03:52 PM Reporting Lab: [address] [address] Performing Lab: [address] [address] OPIATES SCREEN NONE-DETECTED N one-Detec shahzad, Cutoff = 300 ng/mL PH, MALCOLM 5.6 [pH] 4-10 CREATININE, MALCOLM 162.14 mg/dL >20 SP.GRAVITY, MALCOLM 1.021 H 1.00 3-1.02 0 May 12, 2024 07:53 AM [facility] CANNABINOIDS SCREEN PANEL Specimen Type: URINE Comment: [...] May 11, 2024 03:52 PM Reporting Lab: [address] [address] Performing Lab: [address] [address] CANNABINOIDS SCREEN NONE-DETECTED None-Detec shahzad,Cutoff = 50 ng/mL PH, MALCOLM 5.6 [pH] 4-10 CREATININE, MALCOLM 162.14 mg/dL >20 SP.GRAVITY, MALCOLM 1.021 H 1.00 3-1.02 0 May 12, 2024 07:47 AM [facility] MAGNESIUM Specimen Type: SERUM No comment entered. Ordering Provider: EHSAN OVALLES Report Released Date/Time: Nov 11, 2023 05:57 AM Reporting Lab: [address] [address] Performing Lab: [address] [address] MAGNESIUM 2.0 mg/dL 1.6-2.6 May 12, 2024 07:47 AM [facility] URIC ACID Specimen Type: SERUM No comment entered. Ordering Provider: EHSAN OVALLES Report Released Date/Time: Nov 11, 2023 05:57 AM Reporting Lab: [address] [address] Performing Lab: [address] [address] URIC ACID 5.6 mg/dL 3.5-7.2 May 12, 2024 07:47 AM [facility] HEMOGLOBIN A1C PANEL Specimen Type: BLOOD Comment: [...] Nov 11, 2023 05:57 AM Reporting Lab: [address] [address] Performing Lab: [address] [address] HEMOGLOBIN A1C 5.0 4.0-5.6 May 12, 2024 07:47 AM [facility] LIPID PANEL FASTING Specimen Type: SERUM No comment entered. Ordering Provider: EHSAN OVALLES Report Released Date/Time: Nov 11, 2023 05:57 AM Reporting Lab: [address] [address] Performing Lab: [address] [address] CHOLESTEROL 246 mg/dL H TRIGLYCERIDE 153 mg/dL H 0-150 LDL calculated 182 mg/dL H 0-129 CHOL/HDL 7.5 HDL CHOLESTEROL 33 mg/dL L 40-60 May 12, 2024 07:47 AM [facility] BASIC METABOLIC PANEL (fasting) Specimen Type: SERUM No comment entered. Ordering Provider: EHSAN OVALLES Report Released Date/Time: Nov 11, 2023 05:57 AM Reporting Lab: [facility] [address] [address] Performing Lab: [facility] [address] [address] UREA NITROGEN 22 mg/dL 7-25 GLUCOSE 88 mg/dL 65-100 SODIUM 141 mmol/L 135-145 POTASSIUM 4.4 mmol/L 3.5-5.0 CHLORIDE 108 mmol/L 100-110 CO2 23 meq/L 20-30 CREATININE, Serum 1.09 mg/dL 0.50-1.40 eGFR(CKD-EPI 2020) 82 mL/min >60 May 12, 2024 07:47 AM [facility] PSA Specimen Type: SERUM No comment entered. Ordering Provider: EHSAN OVALLES Report Released Date/Time: Nov 11, 2023 05:57 AM Reporting Lab: [facility] [address] [address] Performing Lab: [facility] [address] [address] PSA 0.84 ng/mL 0.00-4.00 May 12, 2024 07:47 AM [facility] LIVER FUNCTION Specimen Type: SERUM No comment entered. Ordering Provider: EHSAN OVALLES Report Released Date/Time: Nov 11, 2023 05:57 AM Reporting Lab: [facility] [address] Performing Lab: [facility] [address] PROTEIN,TOTAL 6.6 g/dL 6.0-8.3 ALBUMIN 3.8 g/dL 3.5-5.0 ALKALINE PHOSPHATASE 59 U/L 40-150 AST 20 U/L 5-34 ALT 37 U/L BILIRUBIN, TOTAL 0.4 mg/dL 0.2-1.2 May 12, 2024 07:47 AM [facility] TSH Specimen Type: SERUM No comment entered. Ordering Provider: EHSAN OVALLES Report Released Date/Time: Nov 11, 2023 05:57 AM Reporting Lab: [facility] [place] [facility] [address] [facility] [address] Performing Lab: [place] [facility] [place] [facility] [address] [facility] [address] TSH 4.05 u[IU]/mL 0.35-5.00 May 12, 2024 07:47 AM [facility]ITAL[facility] CBC AND DIFF (AUTO) Specimen Type: BLOOD No comment entered. Ordering Provider: EHSAN OVALLES Report Released Date/Time: Nov 11, 2023 05:57 AM Reporting Lab: [facility] [address] [facility] [address] Performing Lab: [place] [facility]ENTERTRN [facility]ENTER[facility] [address] [facility] [address] WBC 8.27 10*3/uL 4.50-11.00 RBC 5.05 10*6/uL [...] 12, 2023 10:46 AM VA-TOBACCO NEVER USED [facility] Tobacco Use History This section includes a history of the smoking, or tobacco-related health factors, that were collected on or before the date of the Encounter. The data comes from the [place] facility where the Encounter took place. Date/Time Smoking Status/Tobacco Use Comment Trisha acility Oct 20, 2015 10:30 AM LIFETIME NON-TOBACCO USER [facility] Sep 19, 2009 11:13 AM LIFETIME NON-TOBACCO USER [facility] Advance Directives: All historical and current Section [...] Mar 22, 2018 ADVANCE DIRECTIVE JASWANT DICKINSON [facility] Encounter Notes: All associated encounter notes This section contains the clinical notes associated to the Encounter. Date/Time Encounter Note(s) Provider Source May 04, 2024 12:00 AM NONVA CONSULT: LOCAL TITLE: COMMUNITY CARE-CONSULT RESULT NOTE STANDARD TITLE: NONVA CONSULT DATE OF NOTE: MAY 04, 2024 ENTRY DATE: MAY 25, 2024@14:24:57 AUTHOR: GUY ARRINGTON EXP COSIGNER: URGENCY: STATUS: COMPLETED VistA Imaging - Scanned Document SCANNED DOCUMENT SIGNATURE NOT REQUIRED Electronically Filed: 05/25/2024 by: GUY ARRINGTON CAP CUTTER GUY ARRINGTON [facility]
--- OUTSIDE RECORDS SUMMARY | 2024-08-18 10:02 | XMS_ITS ---
Author Name [facility] [place] Organization [facility] [place] [facility] [place] Address [address] [place] [address] Care Team Providers Care Body And Fender Worker Name Role Phone EHSAN OVALLES Primary [...] PART A December 08, 2013 PART A [id number] [phone] BRIGID RAMOS PATIENT MEDICARE (WNR) MEDICARE ([place]) PART A December 08, 2013 PART A [id number] BRIGID RAMOS PATIENT Selected Encounter This section includes the information on record at [place] for the Encounter. Date/Time Encounter Type Encounter Description Reason Pro vider Source May 16, 2024 12:00 PM Outpatient Encounter COMMUNITY CARE [...] 24, 2024 12:00 PM AMBULATORY - NONE [place] [facility] [place] [facility] May 31, 2024 11:30 AM AMBULATORY - MEDICINE [place] [facility] [place] [facility] Jun 03, 2024 09:50 AM AMBULATORY - MEDICINE [facility] [place] [facility] Jun 07, 2024 11:30 AM AMBULATORY - NONE [facility] [place] [facility] Jul 27, 2024 02:30 PM AMBULATORY - REHAB MEDICIN E [facility] [place] [facility] Aug 30, 2024 11:00 AM AMBULATORY - MEDICINE [place] [facility] [place] [facility] Sep 14, 2024 01:00 PM AMBULATORY - REHAB MEDICIN E [facility] [place] [facility] Active, Pending, and Scheduled Orders This section includes a listing of several types of active, pending, and scheduled orders, including clinic medications orders, diagnostic test orders, procedure orders and consult orders; where the start date of the order is 45 days before the date of the Encounter or 45 days after the date of theEncounter. The data comes from all [place] treatment facilities. Test Date/Time Test Type Test Details Facility Name May 16, 2024 02:21 PM Consult Order COMMUNITY CARE-UROLOGY Cons Nut Blanker Operator's Choice [facility] Lab Results: +/- 30 days [...] Range Comment May 12, 2024 07:53 AM [facility] METHADONE SCREEN Specimen Type: URINE Comment: MALCOLM test are qualitative, any L or H flags only indicate a [facility] alert was sent. Ordering Provider: DEE DEE WILSON Report Released Date/Time: May 11, 2024 03:52 PM Reporting Lab: [address] [address] [facility]forming [facility]: [facility] [address] [facility] [address] METHADONE SCREEN None detected(Nega tive) L Negative May 12, 2024 07:53 AM [facility] ALCOHOL, ETHYL URINE PANEL Specimen Type: [...] May 11, 2024 03:52 PM Reporting Lab: [address] [address] Performing Lab: [address] [address] ALCOHOL, ETHYL URINE NONE-DETECTED mg/dL NONE-DETEC SHAHZAD, cutoff = 10 mg/dL PH, MALCOLM 5.6 [pH] 4-10 CREATININE, MALCOLM 162.14 mg/dL >20 SP.GRAVITY, MALCOLM 1.021 H 1.00 3-1.02 0 May 12, 2024 07:53 AM [facility] AMPHETAMINES SCREEN PANEL Specimen Type: URINE [...] May 11, 2024 03:52 PM Reporting Lab: [address] [address] Performing Lab: [address] [address] AMPHETAMINES SCREEN NONE-DETECTED None-Detec shahzad, Cutoff = 1000 ng/mL PH, MALCOLM 5.6 [pH] 4-10 CREATININE, MALCOLM 162.14 mg/dL >20 SP.GRAVITY, MALCOLM 1.021 H 1.00 3-1.02 0 May 12, 2024 07:53 AM [facility] FENTANYL SCREEN PANEL Specimen Type: URINE [...] May 11, 2024 03:52 PM Reporting Lab: [address] [address] Performing Lab: [address] [address] FENTANYL SCREEN NONE-DETECTE D ng/mL Negative: Cutoff = 1.00 ng/mL PH, MALCOLM 5.6 [pH] 4-10 CREATININE, MALCOLM 156.70 mg/dL >20 SP.GRAVITY, MALCOLM 1.020 1.00 3-1.02 0 May 12, 2024 07:53 AM [facility] BENZODIAZEPINES SCREEN PANEL Specimen Type: URINE [...] May 11, 2024 03:52 PM Reporting Lab: [address] [address] Performing Lab: [address] [address] BENZODIAZEPINES SCREEN NONE-DETECTED None-Detec shahzad, Cutoff = 200 ng/mL PH, MALCOLM 5.6 [pH] 4-10 CREATININE, MALCOLM 162.14 mg/dL >20 SP.GRAVITY, MALCOLM 1.021 H 1.00 3-1.02 0 May 12, 2024 07:53 AM [facility] BUPRENORPHINE SCREEN PANEL Specimen Type: URINE [...] May 11, 2024 03:52 PM Reporting Lab: [address] Performing Lab: [place] [address] BUPRENORPHINE (URINE) NONE-DETECTED None Detected, Cutoff = 10.0 ng/mL PH, MALCOLM 5.6 [pH] 4-10 CREATININE, MALCOLM 162.14 mg/dL >20 SP.GRAVITY, MALCOLM 1.021 H 1.00 3-1.02 0 May 12, 2024 07:53 AM [facility] CANNABINOIDS SCREEN PANEL Specimen Type: URINE [...] May 11, 2024 03:52 PM Reporting Lab: [address] [address] Performing Lab: [facility] [address] [address] CANNABINOIDS SCREEN NONE-DETECTED None-Detec shhazad,Cutoff = 50 ng/mL PH, MALCOLM 5.6 [pH] 4-10 CREATININE, MALCOLM 162.14 mg/dL >20 SP.GRAVITY, MALCOLM 1.021 H 1.00 3-1.02 0 May 12, 2024 07:53 AM [facility] COCAINE SCREEN PANEL Specimen Type: URINE [...] May 11, 2024 03:52 PM Reporting Lab: [address] [address] Performing Lab: [place] [id number] COCAINE SCREEN NONE-DETECTED N one-Detec shahzad,Cutoff = 300 ng/mL PH, MALCOLM 5.6 [pH] 4-10 CREATININE, MALCOLM 162.14 mg/dL >20 SP.GRAVITY, MALCOLM 1.021 H 1.00 3-1.02 0 May 12, 2024 07:53 AM [facility] OPIATES SCREEN PANEL Specimen Type: URINE [...] May 11, 2024 03:52 PM Reporting Lab: [place] [id number] Performing Lab: [address] [address] OPIATES SCREEN NONE-DETECTED N one-Detec shahzad, Cutoff = 300 ng/mL PH, MALCOLM 5.6 [pH] 4-10 CREATININE, MALCOLM 162.14 mg/dL >20 SP.GRAVITY, MALCOLM 1.021 H 1.00 3-1.02 0 May 12, 2024 07:53 AM [facility] OXYCODONE SCREEN PANEL Specimen Type: URINE [...] May 11, 2024 03:52 PM Reporting Lab: [address] [address] Performing Lab: [address] [address] OXYCODONE SCREEN NONE-DETECTED None-Detec shahzad, Cutoff = 100 ng/mL PH, MALCOLM 5.6 [pH] 4-10 CREATININE, MALCOLM 162.14 mg/dL >20 SP.GRAVITY, MALCOLM 1.021 H 1.00 3-1.02 0 May 12, 2024 07:47 AM [facility] HEMOGLOBIN A1C PANEL Specimen Type: BLOOD [...] Nov 11, 2023 05:57 AM Reporting Lab: [address] [address] Performing Lab: [facility] [place] [facility] [address] [facility] [address] HEMOGLOBIN A1C 5.0 4.0-5.6 May 12, 2024 07:47 AM [facility]TR[facility]CH[facility] MAGNESIUM Specimen Type: SERUM No comment entered. Ordering Provider: EHSAN OVALLES Report Released Date/Time: Nov 11, 2023 05:57 AM Reporting Lab: [facility] [place] [facility] [address] [facility] [address] Performing Lab: [facility] [place] [place] [facility] [address] [facility] [address] MAGNESIUM 2.0 mg/dL 1.6-2.6 May 12, 2024 07:47 AM [facility] URIC ACID Specimen Type: SERUM No comment entered. Ordering Provider: EHSAN OVALLES Report Released Date/Time: Nov 11, 2023 05:57 AM Reporting Lab: [facility] [place] [facility] [address] [facility] [address] Performing Lab: [facility]TRN [facility]OSPITALUSETS [facility] [address] [facility] [address] URIC ACID 5.6 mg/dL 3.5-7.2 May 12, 2024 07:47 AM [facility] LIPID PANEL FASTING Specimen Type: SERUM No comment entered. Ordering Provider: EHSAN OVALLES Report Released Date/Time: Nov 11, 2023 05:57 AM Reporting Lab: [facility] [place] [facility] [address] [facility] [address] Performing Lab: [facility] [place] [address] [address] CHOLESTEROL 246 mg/dL H TRIGLYCERIDE 153 mg/dL H 0-150 LDL calculated 182 mg/dL H 0-129 CHOL/HDL 7.5 HDL CHOLESTEROL 33 mg/dL L 40-60 May 12, 2024 07:47 AM [facility]ITALRUSA [facility]PITALN [facility]ITALCHUS[facility] PSA Specimen Type: SERUM No comment entered. Ordering Provider: EHSAN OVALLES Report Released Date/Time: Nov 11, 2023 05:57 AM Reporting Lab: [facility]ITALRUSA [facility]OSPITALN [facility]PITALUSETS [facility] [address] [facility] [address] Performing Lab: [facility]ITALRUSA [facility]OSPITALN [facility]PITALUSETS [facility] [address] [facility] [address] PSA 0.84 ng/mL 0.00-4.00 May 12, 2024 07:47 AM [facility] TSH Specimen Type: SERUM No comment entered. Ordering Provider: EHSAN OVALLES Report Released Date/Time: Nov 11, 2023 05:57 AM Reporting Lab: [facility]ITALRUSA [facility]OSPITALN [facility]ITALUSE[facility] [address] [facility] [address] Performing Lab: [facility]ITALUSE[facility] [address] [facility] [address] TSH 4.05 u[IU]/mL 0.35-5.00 May 12, 2024 07:47 AM [facility] LIVER FUNCTION Specimen Type: SERUM No comment entered. Ordering Provider: EHSAN OVALLES Report Released Date/Time: Nov 11, 2023 05:57 AM Reporting Lab: [facility]ITALUSEB[facility] [address] [facility] [address] Performing Lab: [facility]PITALUSE[address] [address] PROTEIN,TOTAL 6.6 g/dL 6.0-8.3 ALBUMIN 3.8 g/dL 3.5-5.0 ALKALINE PHOSPHATASE 59 U/L 40-150 AST 20 U/L 5-34 ALT 37 U/L BILIRUBIN, TOTAL 0.4 mg/dL 0.2-1.2 May 12, 2024 07:47 AM [facility] BASIC METABOLIC PANEL (fasting) Specimen Type: SERUM No comment entered. Ordering Provider: EHSAN OVALLES Report Released Date/Time: Nov 11, 2023 05:57 AM Reporting Lab: [facility]ITALRUSA [facility]OSPITALN [facility]OSPITALUSETS [facility] [address] [facility] [address] Performing Lab: [facility]PITALUSE[address] [address] UREA NITROGEN 22 mg/dL 7-25 GLUCOSE 88 mg/dL 65-100 SODIUM 141 mmol/L 135-145 POTASSIUM 4.4 mmol/L 3.5-5.0 CHLORIDE 108 mmol/L 100-110 CO2 23 meq/L 20-30 CREATININE, Serum 1.09 mg/dL 0.50-1.40 eGFR(CKD-EPI 2020) 82 mL/min >60 May 12, 2024 07:47 AM [facility] CBC AND DIFF (AUTO) Specimen Type: BLOOD No comment entered. Ordering Provider: EHSAN OVALLES Report Released Date/Time: Nov 11, 2023 05:57 AM Reporting Lab: [facility] [address] [facility] [address] Performing Lab: [facility] [address] [facility] [address] WBC 8.27 10*3/uL 4.50-11.00 RBC 5.05 10*6/uL [...] place. Date/Time Current Smoking Status Comment Jose [email or web address] May 12, 2023 10:46 AM VA-TOBACCO NEVER USED [facility] Tobacco Use History This section includes a history of the smoking, or tobacco-related health factors, that were collected on or before the date of the Encounter. The data comes from the [place] facility where the Encounter took place. Date/Time Smoking Status/Tobacco Use Comment Trisha [email or web address] Oct 20, 2015 10:30 AM LIFETIME NON-TOBACCO USER [facility] Sep 19, 2009 11:13 AM LIFETIME NON-TOBACCO USER [facility] Advance Directives: All historical and current [...] Mar 22, 2018 ADVANCE DIRECTIVE [facility] Encounter Notes: All associated encounter notes This section contains the clinical notes associated to the Encounter. Date/Time Encounter Note(s) Provider Source May 16, 2024 12:00 PM NONVA CONSULT: LOCAL TITLE: COMMUNITY CARE-CONSULT RESULT NOTE STANDARD TITLE: NONVA CONSULT DATE OF NOTE: MAY 16, 2024@12:00 ENTRY DATE: JUN 07, 2024@10:29:53 AUTHOR: RAMON ARTIS EXP COSIGNER: URGENCY: STATUS: COMPLETED VistA Imaging - Scanned Document SCANNED DOCUMENT SIGNATURE NOT REQUIRED Electronically Filed: 06/07/2024 by: RAMON ARTIS REHEAT FURNACE OPERATOR RAMON ARTIS [facility]
--- OUTSIDE RECORDS SUMMARY | 2024-08-18 10:02 | XMS_ITS | Encounter Summary ---
Author Name [facility] [place] [facility] [place] [facility] [place] Address [address] [place] [id number] Care Team Providers Care Senior Materials Scientist Name Role Phone EHSAN OVALLES Primary Care [...] PART A December 08, 2013 PART A [id number] [phone] BRIGID RAMOS PATIENT MEDICARE (WNR) MEDICARE (M) PART A December 08, 2013 PART A [id number] GARRICK BRIGID DAMICO PATIENT Selected Encounter This section includes the information on record at [place] for the Encounter. Date/Time Encounter Type Encounter Description Reason Provider Source Jun 07, 2024 11:30 AM TTE W/DOPPLER COMPLETE CARDIAC ECHO ICD-10-CM I44.7 Left bundle-branch block, unspecified YONNY FLOREZ Martin Encounter Template Text not used by [place] Assessments - Encounter Diagnoses This section includes the primary and secondary diagnoses documented for the Encounter. Date/Time Primary/Secondary Diagnosis Diagnosis Name Provider Source Jun 07, 2024 11:47 AM PRIMARY Left bundle-branch block, unspecified JEAN-PAUL FLOREZ Plan of Treatment: Future Appointments (+ 6 months) and Future Tests (+/- 45 days) The Plan of Treatment section includes future care activities for the patient from all [place] treatmentfacilities. This section includes future appointments and future orders which are active, pending or scheduled. Future Appointments This section includes appointments that were scheduled to occur 6 months from the date of the Encounter, up to a maximum of 20 appointments. The data comes from all [place] treatment facilities. Appointment Date/Time Appointment Type Appointme nt Facility Name Jul 27, 2024 02:30 PM [facility] Aug 30, 2024 11:00 AM [facility] Sep 14, 2024 01:00 PM AMBULATORY - REHAB MEDICIN E [facility] Active, Pending, and Scheduled Orders This section includes a listing of several types of active, pending, and scheduled orders, including clinic medications orders, diagnostic test orders, procedure orders and consult orders; where the start date of the order is 45 days before the date of the Encounter or 45 days after the date of theEncounter. The data comes from all [place] treatment facilities. Test Date/Time Test Type Test Details Facility Name May 16, 2024 02:21 PM Consult Order COMMUNITY CARE-UROLOGY Cons [employer] Analyst's Choice [facility] Jul 05, 2024 09:45 AM Consult Order COMMUNITY CARE-ACUPUNCTURE Cons [employer] Analyst's Choice [facility] Lab Results: +/- 30 days of the encounter This section includes the Chemistry and Hematology Lab Results on record with [place] for the patient. Radiology Reports and Pathology Reports are provided separately, in subsequent sections. Lab Results This section contains the Chemistry/Hematology Results that were resulted 30 days before or 30 daysafter the date of the Encounter. Date/Time Source Result Type Result - Unit Interpretation Reference Range Comment May 12, 2024 07:53 AM [facility] METHADONE SCREEN Specimen Type: URINE Comment: MALCOLM test are qualitative, any L or H flags only indicate a [facility] alert was sent. Ordering Provider: DEE DEE WILSON Report Released Date/Time: May 11, 2024 03:52 PM Reporting Lab: [address] [address] Performing Lab: [facility] [address] [facility] [address] METHADONE SCREEN None detected(Nega tive) L Negative May 12, 2024 07:53 AM [facility] ALCOHOL, ETHYL URINE PANEL Specimen Type: [...] May 11, 2024 03:52 PM Reporting Lab: [facility] [address] [facility] [address] Performing Lab: [address] [address] ALCOHOL, ETHYL URINE NONE-DETECTED mg/dL NONE-DETEC AMANDA, cutoff = 10 mg/dL PH, MALCOLM 5.6 [pH] 4-10 CREATININE, MALCOLM 162.14 mg/dL >20 SP.GRAVITY, MALCOLM 1.021 H 1.00 3-1.02 0 May 12, 2024 07:53 AM [facility] AMPHETAMINES SCREEN PANEL Specimen Type: URINE [...] May 11, 2024 03:52 PM Reporting Lab: [address] [address] Performing Lab: [address] [address] AMPHETAMINES SCREEN NONE-DETECTED None-Detec amanda, Cutoff = 1000 ng/mL PH, MALCOLM 5.6 [pH] 4-10 CREATININE, MALCOLM 162.14 mg/dL >20 SP.GRAVITY, MALCOLM 1.021 H 1.00 3-1.02 0 May 12, 2024 07:53 AM [facility] FENTANYL SCREEN PANEL Specimen Type: URINE [...] May 11, 2024 03:52 PM Reporting Lab: [address] [address] Performing Lab: [address] [address] FENTANYL SCREEN NONE-DETECTE D ng/mL Negative: Cutoff = 1.00 ng/mL PH, MALCOLM 5.6 [pH] 4-10 CREATININE, MALCOLM 156.70 mg/dL >20 SP.GRAVITY, MALCOLM 1.020 1.00 3-1.02 0 May 12, 2024 07:53 AM [facility] BUPRENORPHINE SCREEN PANEL Specimen Type: URINE [...] May 11, 2024 03:52 PM Reporting Lab: [address] [address] Performing Lab: [facility] [address] [address] BUPRENORPHINE (URINE) NONE-DETECTED None Detected, Cutoff = 10.0 ng/mL PH, MALCOLM 5.6 [pH] 4-10 CREATININE, MALCOLM 162.14 mg/dL >20 SP.GRAVITY, MALCOLM 1.021 H 1.00 3-1.02 0 May 12, 2024 07:53 AM [facility] CANNABINOIDS SCREEN PANEL Specimen Type: URINE [...] May 11, 2024 03:52 PM Reporting Lab: [address] [address] Performing Lab: [address] [address] CANNABINOIDS SCREEN NONE-DETECTED None-Detec amanda,Cutoff = 50 ng/mL PH, MALCOLM 5.6 [pH] 4-10 CREATININE, MALCOLM 162.14 mg/dL >20 SP.GRAVITY, MALCOLM 1.021 H 1.00 3-1.02 0 May 12, 2024 07:53 AM [facility] COCAINE SCREEN PANEL Specimen Type: URINE [...] May 11, 2024 03:52 PM Reporting Lab: [address] [address] Performing Lab: [address] [address] COCAINE SCREEN NONE-DETECTED N one-Detec amanda,Cutoff = 300 ng/mL PH, MALCOLM 5.6 [pH] 4-10 CREATININE, MALCOLM 162.14 mg/dL >20 SP.GRAVITY, MALCOLM 1.021 H 1.00 3-1.02 0 May 12, 2024 07:53 AM [facility] BENZODIAZEPINES SCREEN PANEL Specimen Type: URINE [...] May 11, 2024 03:52 PM Reporting Lab: [address] [address] Performing Lab: [address] [address] BENZODIAZEPINES SCREEN NONE-DETECTED None-Detec amanda, Cutoff = 200 ng/mL PH, MALCOLM 5.6 [pH] 4-10 CREATININE, MALCOLM 162.14 mg/dL >20 SP.GRAVITY, MALCOLM 1.021 H 1.00 3-1.02 0 May 12, 2024 07:53 AM [facility] OPIATES SCREEN PANEL Specimen Type: URINE [...] May 11, 2024 03:52 PM Reporting Lab: [address] [address] Performing Lab: [address] [address] OPIATES SCREEN NONE-DETECTED N one-Detec amanda, Cutoff = 300 ng/mL PH, MALCOLM 5.6 [pH] 4-10 CREATININE, MALCOLM 162.14 mg/dL >20 SP.GRAVITY, MALCOLM 1.021 H 1.00 3-1.02 0 May 12, 2024 07:53 AM [facility] OXYCODONE SCREEN PANEL Specimen Type: URINE [...] May 11, 2024 03:52 PM Reporting Lab: [address] [address] Performing Lab: [address] [address] OXYCODONE SCREEN NONE-DETECTED None-Detec amanda, Cutoff = 100 ng/mL PH, MALCOLM 5.6 [pH] 4-10 CREATININE, MALCOLM 162.14 mg/dL >20 SP.GRAVITY, MALCOLM 1.021 H 1.00 3-1.02 0 May 12, 2024 07:47 AM [facility] MAGNESIUM Specimen Type: SERUM No comment entered. Ordering Provider: EHSAN OVALLES Report Released Date/Time: Nov 11, 2023 05:57 AM Reporting Lab: [address] [address] Performing Lab: [address] [address] MAGNESIUM 2.0 mg/dL 1.6-2.6 May 12, 2024 07:47 AM [facility] URIC ACID Specimen Type: SERUM No comment entered. Ordering Provider: EHSAN OVALLES Report Released Date/Time: Nov 11, 2023 05:57 AM Reporting Lab: [facility] [address] [facility] [address] Performing Lab: [facility] [address] [facility] [address] URIC ACID 5.6 mg/dL 3.5-7.2 May 12, 2024 07:47 AM [facility] HEMOGLOBIN A1C PANEL Specimen Type: BLOOD [...] Nov 11, 2023 05:57 AM Reporting Lab: [address] [address] Performing Lab: [address] [address] HEMOGLOBIN A1C 5.0 4.0-5.6 May 12, 2024 07:47 AM [facility] LIPID PANEL FASTING Specimen Type: SERUM No comment entered. Ordering Provider: EHSAN OVALLES Report Released Date/Time: Nov 11, 2023 05:57 AM Reporting Lab: [facility] [address] [facility] [address] Performing Lab: [address] [address] CHOLESTEROL 246 mg/dL H TRIGLYCERIDE 153 mg/dL H 0-150 LDL calculated 182 mg/dL H 0-129 CHOL/HDL 7.5 HDL CHOLESTEROL 33 mg/dL L 40-60 May 12, 2024 07:47 AM [facility] PSA Specimen Type: SERUM No comment entered. Ordering Provider: EHSAN OVALLES Report Released Date/Time: Nov 11, 2023 05:57 AM Reporting Lab: [place] [facility] [place] [facility] [address] [facility] [address] Performing Lab: [facility] [place] [facility] [address] [facility] [address] PSA 0.84 ng/mL 0.00-4.00 May 12, 2024 07:[address] [facility] LIVER FUNCTION Specimen Type: SERUM No comment entered. Ordering Provider: EHSAN OVALLES Report Released Date/Time: Nov 11, 2023 05:57 AM Reporting Lab: [place] [facility] [place] [facility] [address] [facility] [address] Performing Lab: [facility] [address] [address] PROTEIN,TOTAL 6.6 g/dL 6.0-8.3 ALBUMIN 3.8 g/dL 3.5-5.0 ALKALINE PHOSPHATASE 59 U/L 40-150 AST 20 U/L 5-34 ALT 37 U/L BILIRUBIN, TOTAL 0.4 mg/dL 0.2-1.2 May 12, 2024 07:47 AM [facility] TSH Specimen Type: SERUM No comment entered. Ordering Provider: EHSAN OVALLES Report Released Date/Time: Nov 11, 2023 05:57 AM Reporting Lab: [place] [facility] [place] [facility] [address] [facility] [address] Performing Lab: [place] [facility] [place] [facility] [address] [facility] [address] TSH 4.05 u[IU]/mL 0.35-5.00 May 12, 2024 07:47 AM [facility] BASIC METABOLIC PANEL (fasting) Specimen Type: SERUM No comment entered. Ordering Provider: EHSAN OVALLES Report Released Date/Time: Nov 11, 2023 05:57 AM Reporting Lab: [place] [facility] [place] [facility] [address] [facility] [address] Performing Lab: [place] [facility] [place] [address] [address] UREA NITROGEN 22 mg/dL 7-25 GLUCOSE 88 mg/dL 65-100 SODIUM 141 mmol/L 135-145 POTASSIUM 4.4 mmol/L 3.5-5.0 CHLORIDE 108 mmol/L 100-110 CO2 23 meq/L 20-30 CREATININE, Serum 1.09 mg/dL 0.50-1.40 eGFR(CKD-EPI 2020) 82 mL/min >60 May 12, 2024 07:47 AM [facility] CBC AND DIFF (AUTO) Specimen Type: BLOOD No comment entered. Ordering Provider: EHSAN OVALLES Report Released Date/Time: Nov 11, 2023 05:57 AM Reporting Lab: [facility] [address] [facility] [address] Performing Lab: [facility] [address] [facility] [address] WBC 8.27 10*3/uL 4.50-11.00 RBC 5.05 10*6/uL [...] and tobacco- related health factors from the [place] facility where the Encounter took place. Current Smoking Status This section includes the most current smoking, or tobacco-related health factor, from the [place] facility where the Encounter took place. Date/Time Current Smoking Status Comment Jose ity May 31, 2024 11:30 AM [facility] NEVER USED [place] Tobacco Use History This section includes a history of the smoking, or tobacco-related health factors, that were collected on or before the date of the Encounter. The data comes from the [place] facility where the Encounter took place. Date/Time Smoking Status/Tobacco Use Comment Trisha [email or web address] May 26, 2022 10:00 AM [place] NEVER US[place] May 21, 2021 03:00 PM [facility] US[facility] [place] Aug 08, 2019 11:05 AM [facility]ACCO NEVER USED [place] Jun 28, 2018 03:14 PM [facility]-TOBACCO NEVER USED [place] May 28, 2017 08:56 AM LIFETIME NON-TOBACCO USER [place] Advance Directives: All historical and current Section Date Range: From patient's date of to the date document was created. This section includes ALL of a patient's completed or amended [place] Advance and Rescinded Directives. The entries below indicate that a directive exists for the patient, but an actual copy is not included with this document. The data comes from all [place] facilities. Date Advance Directives Provider Source Mar 22, 2018 ADVANCE DIRECTIVE JASWANT DICKINSON [place] [facility] Encounter Notes: All associated encounter notes This section contains the clinical notes associated to the Encounter. Date/Time Encounter Note(s) Provider Source Jun 09, 2024 12:08 PM CARDIOLOGY PROCEDU RE NOTE: LOCAL TITLE: CP CARDIOLOGY ECHO STANDARD TITLE: CARDIOLOGY PROCEDURE NOTE DATE OF NOTE: JUN 09, 2024@12:08:50 ENTRY DATE: JUN 09, 2024@12:08:50 AUTHOR: CLINICAL,DEVICE PRO EXP COSIGNER: URGENCY: STATUS: COMPLETED PROCEDURE SUMMARY CODE: Machine Resulted DATE/TIME PERFORMED: JUN 07, 2024@11:18:1 DOCUMENT IN VISTA IMAGING SEE FULL REPORT IN VISTA IMAGING SIGNATURE NOT REQUIRED SEE SIGNATURE IN VISTA IMAGING (XCELERA (ADULT) SOPC) AUTO-INSTRUMENT DIAGNOSIS Procedure: Interop Interop Release Status: Released Off-Line Verified Date Verified: Jun 09, 2024@12:07:10 Administrative Closure: 06/09/2024 by: Clinical,Device Proxy Service CLINICAL,DEVICE PROXY SERVICE [place] Jun 09, 2024 12:08 PM CARDIOLOGY PROCEDU RE NOTE: LOCAL TITLE: CP CARDIOLOGY ECHO STANDARD TITLE: CARDIOLOGY PROCEDURE NOTE DATE OF NOTE: JUN 09, 2024@12:08:49 ENTRY DATE: JUN 09, 2024@12:08:49 AUTHOR: CLINICAL,DEVICE PRO EXP COSIGNER: URGENCY: STATUS: COMPLETED PROCEDURE SUMMARY CODE: Machine Resulted DATE/TIME PERFORMED: JUN 07, 2024@11:18:1 DOCUMENT IN VISTA IMAGING SEE FULL REPORT IN VISTA IMAGING SIGNATURE NOT REQUIRED SEE SIGNATURE IN VISTA IMAGING (XCELERA (ADULT) SOPC) AUTO-INSTRUMENT DIAGNOSIS Procedure: Interop Interop Release Status: Released Off-Line Verified Date Verified: Jun 09, 2024@12:07:10 Administrative Closure: 06/09/2024 by: Clinical,Device Proxy Service CLINICAL,DEVICE PROXY SERVICE [place] Jun 07, 2024 11:46 AM CARDIOLOGY DIAGNOS TIC STUDY NOTE: LOCAL TITLE: ECHOCARDIOGRAM REPORT STANDARD TITLE: CARDIOLOGY DIAGNOSTIC STUDY NOTE DATE OF NOTE: JUN 07, 2024@11:46 ENTRY DATE: JUN 07, 2024@11:46:39 AUTHOR: DANISHA FLOREZ EXP COSIGNER: URGENCY: STATUS: COMPLETED DATE ECHOCARDIOGRAM PERFOMED: May ECHOCARDIOLOGY SHOE STITCHER ODD: IRA Colbert, NATHAN Procedure was performed without incident. The Study transmitted to [facility] via [employer] system for interpretation by table games floor supervisor. When interpretation is complete, results can be found under [employer]. /[email or web address]/ NATHAN WERNER Signed: 06/07/2024 11:47 DANISHA FLOREZ [place]
--- OUTSIDE RECORDS SUMMARY | 2024-08-18 10:02 | XMS_ITS | Encounter Summary ---
Author Name [facility] [place] Organization [facility] [place] Address [address] [place] [address] Care Team Providers Care Absence Management Consultant Name Role Phone EHSAN OVALLES Primary Care [...] PART A December 08, 2013 PART A [id number] BRIGID RAMOS PATIENT MEDICARE (WNR) MEDICARE (M) PART A December 08, 2013 PART A [id number] [phone] BRIGID RAMOS PATIENT Selected Encounter This section includes the information on record at [place] for the Encounter. Date/Time Encounter Type Encounter Description Reason Pro vider Source May 10, 2024 12:00 AM Outpatient Encounter COMMUNITY CARE [...] PM AMBULATORY - NONE [place] [facility] [place] [facility] May 31, 2024 11:30 AM AMBULATORY - MEDICINE [place] [facility] [place] [facility] Jun 03, 2024 09:50 AM AM[facility]ULATORY [place]ICINE [place] [facility] [place] [facility] Jun 07, 2024 11:30 AM AMBULATORY - NONE [place] [facility] [place] [facility] Jul 27, 2024 02:30 PM AMBULATORY - REHAB MEDICIN E [facility] [place] [facility] Aug 30, 2024 11:00 AM AMBULATORY [place]ICINE [place] [facility] [facility] Sep 14, 2024 01:00 PM AMBULATORY - REHAB MEDICIN E [facility] [place] [facility] Active, Pending, and Scheduled Orders This section includes a listing of several types of active, pending, and scheduled orders, including clinic medications orders, diagnostic test orders, procedure orders and consult orders; where the start date of the order is 45 days before the date of the Encounter or 45 days after the date of theEncounter. The data comes from all [place] treatment facilities. Test Date/Time Test Type Test Details Facility Name May 16, 2024 02:21 PM Consult Order COMMUNITY CARE-UROLOGY Cons Mailing Specialist's Choice [facility] Lab Results: +/- 30 days of the [...] Range Comment May 12, 2024 07:53 AM [facility] METHADONE SCREEN Specimen Type: URINE Comment: MALCOLM test are qualitative, any L or H flags only indicate a [facility] alert was sent. Ordering Provider: DEE DEE WILSON Report Released Date/Time: May 11, 2024 03:52 PM Reporting Lab: [address] [address] Performing [facility]: [facility] [address] [facility] [address] METHADONE SCREEN None detected(Nega tive) L Negative May 12, 2024 07:53 AM [facility] AMPHETAMINES SCREEN PANEL Specimen Type: [...] May 11, 2024 03:52 PM Reporting Lab: [address] [address] Performing Lab: [address] [address] AMPHETAMINES SCREEN NONE-DETECTED None-Detec amanda, Cutoff = 1000 ng/mL PH, MALCOLM 5.6 [pH] 4-10 CREATININE, MALCOLM 162.14 mg/dL >20 SP.GRAVITY, MALCOLM 1.021 H 1.00 3-1.02 0 May 12, 2024 07:53 AM [facility] BENZODIAZEPINES SCREEN PANEL Specimen Type: [...] May 11, 2024 03:52 PM Reporting Lab: [address] [address] Performing Lab: [address] [address] BENZODIAZEPINES SCREEN NONE-DETECTED None-Detec amanda, Cutoff = 200 ng/mL PH, MALCOLM 5.6 [pH] 4-10 CREATININE, MALCOLM 162.14 mg/dL >20 SP.GRAVITY, MALCOLM 1.021 H 1.00 3-1.02 0 May 12, 2024 07:53 AM [facility] ALCOHOL, ETHYL URINE PANEL Specimen [...] May 11, 2024 03:52 PM Reporting Lab: [address] [address] Performing Lab: [address] [address] ALCOHOL, ETHYL URINE NONE-DETECTED mg/dL NONE-DETEC AMANDA, cutoff = 10 mg/dL PH, MALCLOM 5.6 [pH] 4-10 CREATININE, MALCOLM 162.14 mg/dL >20 SP.GRAVITY, MALCOLM 1.021 H 1.00 3-1.02 0 May 12, 2024 07:53 AM [facility] FENTANYL SCREEN PANEL Specimen Type: [...] May 11, 2024 03:52 PM Reporting Lab: [address] [address] Performing Lab: [address] [address] FENTANYL SCREEN NONE-DETECTE D ng/mL Negative: Cutoff = 1.00 ng/mL PH, MALCOLM 5.6 [pH] 4-10 CREATININE, MALCOLM 156.70 mg/dL >20 SP.GRAVITY, MALCOLM 1.020 1.00 3-1.02 0 May 12, 2024 07:53 AM [facility] BUPRENORPHINE SCREEN PANEL Specimen Type: [...] May 11, 2024 03:52 PM Reporting Lab: [address] [address] Performing Lab: [address] [address] BUPRENORPHINE (URINE) NONE-DETECTED None Detected, Cutoff = 10.0 ng/mL PH, MALCOLM 5.6 [pH] 4-10 CREATININE, MALCOLM 162.14 mg/dL >20 SP.GRAVITY, MALCOLM 1.021 H 1.00 3-1.02 0 May 12, 2024 07:53 AM [facility] OPIATES SCREEN PANEL Specimen Type: [...] May 11, 2024 03:52 PM Reporting Lab: [address] [address] Performing Lab: [facility] [address] [address] OPIATES SCREEN NONE-DETECTED N one-Detec amanda, Cutoff = 300 ng/mL PH, MALCOLM 5.6 [pH] 4-10 CREATININE, MALCOLM 162.14 mg/dL >20 SP.GRAVITY, MALCOLM 1.021 H 1.00 3-1.02 0 May 12, 2024 07:53 AM [facility] OXYCODONE SCREEN PANEL Specimen Type: [...] May 11, 2024 03:52 PM Reporting Lab: [address] [address] Performing Lab: [address] [address] OXYCODONE SCREEN NONE-DETECTED None-Detec amanda, Cutoff = 100 ng/mL PH, MALCOLM 5.6 [pH] 4-10 CREATININE, MALCOLM 162.14 mg/dL >20 SP.GRAVITY, MALCOLM 1.021 H 1.00 3-1.02 0 May 12, 2024 07:53 AM [facility] CANNABINOIDS SCREEN PANEL Specimen Type: [...] May 11, 2024 03:52 PM Reporting Lab: [address] [address] Performing Lab: [address] [address] CANNABINOIDS SCREEN NONE-DETECTED None-Detec amanda,Cutoff = 50 ng/mL PH, MALCOLM 5.6 [pH] 4-10 CREATININE, MALCOLM 162.14 mg/dL >20 SP.GRAVITY, MALCOLM 1.021 H 1.00 3-1.02 0 May 12, 2024 07:53 AM [facility] COCAINE SCREEN PANEL Specimen Type: [...] May 11, 2024 03:52 PM Reporting Lab: [address] [address] Performing Lab: [address] [address] COCAINE SCREEN NONE-DETECTED N one-Detec amanda,Cutoff = 300 ng/mL PH, MALCOLM 5.6 [pH] 4-10 CREATININE, MALCOLM 162.14 mg/dL >20 SP.GRAVITY, MALCOLM 1.021 H 1.00 3-1.02 0 May 12, 2024 07:47 AM [facility] HEMOGLOBIN A1C PANEL Specimen Type: [...] Nov 11, 2023 05:57 AM Reporting Lab: [address] [address] Performing Lab: [facility] [place] [facility] [address] [facility] [address] HEMOGLOBIN A1C 5.0 4.0-5.6 May 12, 2024 07:47 AM [facility]ATRN [facility] MAGNESIUM Specimen Type: SERUM No comment entered. Ordering Provider: EHSAN OVALLES Report Released Date/Time: Nov 11, 2023 05:57 AM Reporting Lab: [facility] [place] [facility] [address] [facility] [address] Performing Lab: [facility] [place] [facility] [address] [facility] [address] MAGNESIUM 2.0 mg/dL 1.6-2.6 May 12, 2024 07:47 AM [facility] URIC ACID Specimen Type: SERUM No comment entered. Ordering Provider: EHSAN OVALLES Report Released Date/Time: Nov 11, 2023 05:57 AM Reporting Lab: [facility] [place] [place] [facility] [address] [facility] [address] Performing Lab: [facility] [address] [facility] [address] URIC ACID 5.6 mg/dL 3.5-7.2 May 12, 2024 07:47 AM [facility] LIPID PANEL FASTING Specimen Type: SERUM No comment entered. Ordering Provider: EHSAN OVALLES Report Released Date/Time: Nov 11, 2023 05:57 AM Reporting Lab: [facility]AT[facility] [place] [facility] [address] [facility] [address] Performing Lab: [facility] [place] [address] [address] CHOLESTEROL 246 mg/dL H TRIGLYCERIDE 153 mg/dL H 0-150 LDL calculated 182 mg/dL H 0-129 CHOL/HDL 7.5 HDL CHOLESTEROL 33 mg/dL L 40-60 May 12, 2024 07:47 AM [facility]RRUS[facility]ITALN [facility] LIVER FUNCTION Specimen Type: SERUM No comment entered. Ordering Provider: EHSAN OVALLES Report Released Date/Time: Nov 11, 2023 05:57 AM Reporting Lab: [facility] [address] [facility] [address] Performing Lab: [facility] [address] [facility] [address] PROTEIN,TOTAL 6.6 g/dL 6.0-8.3 ALBUMIN 3.8 g/dL 3.5-5.0 ALKALINE PHOSPHATASE 59 U/L 40-150 AST 20 U/L 5-34 ALT 37 U/L BILIRUBIN, TOTAL 0.4 mg/dL 0.2-1.2 May 12, 2024 07:47 AM [facility] PSA Specimen Type: SERUM No comment entered. Ordering Provider: EHSAN OVALLES Report Released Date/Time: Nov 11, 2023 05:57 AM Reporting Lab: [facility] [address] [facility] [address] Performing Lab: [address] [address] PSA 0.84 ng/mL 0.00-4.00 May 12, 2024 07:47 AM [facility] TSH Specimen Type: SERUM No comment entered. Ordering Provider: EHSAN OVALLES Report Released Date/Time: Nov 11, 2023 05:57 AM Reporting Lab: [facility] [address] [facility] [address] Performing Lab: [address] [address] TSH 4.05 u[IU]/mL 0.35-5.00 May 12, 2024 07:47 AM [facility] BASIC METABOLIC PANEL (fasting) Specimen Type: SERUM No comment entered. Ordering Provider: EHSAN OVALLES Report Released Date/Time: Nov 11, 2023 05:57 AM Reporting Lab: [facility] [address] [facility] [address] Performing Lab: [address] [address] UREA NITROGEN 22 mg/dL 7-25 GLUCOSE 88 mg/dL 65-100 SODIUM 141 mmol/L 135-145 POTASSIUM 4.4 mmol/L 3.5-5.0 CHLORIDE 108 mmol/L 100-110 CO2 23 meq/L 20-30 CREATININE, Serum 1.09 mg/dL 0.50-1.40 eGFR(CKD-EPI 2020) 82 mL/min >60 May 12, 2024 07:47 AM [facility] CBC AND DIFF (AUTO) Specimen Type: BLOOD No comment entered. Ordering Provider: EHSAN OVALLES Report Released Date/Time: Nov 11, 2023 05:57 AM Reporting Lab: [facility] [address] [facility] [address] Performing Lab: [facility] [address] [facility] [address] WBC 8.27 10*3/uL 4.50-11.00 RBC 5.05 10*6/uL [...] 12, 2023 10:46 AM [facility]-TOBACCO NEVER USED [facility] Tobacco Use History This section includes a history of the smoking, or tobacco-related health factors, that were collected on or before the date of the Encounter. The data comes from the [place] facility where the Encounter took place. Date/Time Smoking Status/Tobacco Use Comment Trisha [facility]ility Oct 20, 2015 10:30 AM LIFETIME NON-TOBACCO USER [facility] Sep 19, 2009 11:13 AM LIFETIME NON-TOBACCO USER [facility] Advance Directives: All historical and [...] Mar 22, 2018 ADVANCE DIRECTIVE JASWANT DICKINSON [facility] Encounter Notes: All associated encounter notes This section contains the clinical notes associated to the Encounter. Date/Time Encounter Note(s) Provider Source May 10, 2024 12:00 AM NONVA CONSULT: LOCAL TITLE: COMMUNITY CARE-CONSULT RESULT NOTE STANDARD TITLE: NONVA CONSULT DATE OF NOTE: MAY 10, 2024 ENTRY DATE: MAY 31, 2024@12:46:48 AUTHOR: GUY ARRINGTON EXP COSIGNER: URGENCY: STATUS: COMPLETED VistA Imaging - Scanned Document SCANNED DOCUMENT SIGNATURE NOT REQUIRED Electronically Filed: 05/31/2024 by: GUY ARRINGTON [employer]PORATE SECURITY OFFICER GUY ARRINGTON [facility]
--- OUTSIDE RECORDS SUMMARY | 2024-08-18 10:03 | XMS_ITS | Encounter Summary ---
Author Name [facility] [place] [facility] [place] [facility] [place] Address [address] [place] [address] Care Team Providers Care Can Coverer Name Role Phone EHSAN OVALLES Primary Care [...] PART A December 08, 2013 PART A [id number] [phone] KONRADTASHIACRISTY DAMICOBRIGID Lantigua PATIENT MEDICARE (WNR) MEDICARE (M) PART A December 08, 2013 PART A [id number] [phone] KONRADTASHIACRISTY BRIGID DAMICO PATIENT Selected Encounter This section includes the information on record at [place] for the Encounter. Date/Time Encounter Type Encounter Description Reason Pro vider Source Jun 29, 2024 03:14 PM Outpatient Encounter OPTOMETRY E Encounter Template Text not used by [place] Plan of Treatment: Future Appointments (+ 6 [...] 02:30 PM AMBULATORY - [place] [facility]IC[facility] E [place] [facility] Aug 30, 2024 11:00 AM AM[facility]ULATORY [facility]ICINE [facility] Sep 14, 2024 01:00 PM AMBULAT[place] [facility] Active, Pending, and Scheduled [...] PM Consult Order COMMUNITY CARE-UROLOGY Cons Quality Assurance Lead's Choice [place] [facility] Jul 05, 2024 09:45 AM Consult Order COMMUNITY CARE-ACUPUNCTURE Cons Quality Assurance [facility] Social History: Smoking Status (Most current) and Tobacco Use (All prior to encounter date) This section includes the most current, and the historical, smoking and tobacco- related health factors from the [facility] facility where the Encounter took place. Current Smoking Status This section includes the most current smoking, or tobacco-related health factor, from the VA facility where the Encounter took place. Date/Time Current Smoking Status Comment Jose ity May 12, 2023 10:46 AM [facility]TO[facility]ACCO [facility] Tobacco Use History This section includes a history of the smoking, or tobacco-related health factors, that were collected on or before the date of the Encounter. The data comes from the [facility] facility where the Encounter took place. Date/Time Smoking Status/Tobacco Use Comment F acility Oct 20, 2015 10:30 AM LIFETIME NON-TOBACCO [facility]ER [facility] Sep 19, 2009 11:13 AM LIFETIME NON-TOBACCO USER [facility] Advance Directives: All historical and current Section Date Range: From patient's date of to the date document was created. This section includes ALL of a patient's completed or amended [place] Advance and Rescinded Directives. The entries below indicate that a directive exists for the patient, but an actual copy is not included with this document. The data comes from all [place] facilities. Date Advance Directives Provider Source Mar 22, 2018 ADVANCE DIRECTIVE JASWANT DICKINSON [facility] Radiology Reports: +/- 30 days of the [...] the Encounter. The data comes from all [place] treatment facilities. Date/Time Radiology Report Provider Source Jul 27, 2024 02:52 PM FLUOROSCOPIC [place] NCE OF NEEDLE/SPINE: COLBY HARTLEY [id number] -[id number] M Exm Date: JUL 27, 2024@14:52 Req Phys: YAIR FALCONONG THI [facility] Loc: CWM/NO/MED REHAB/SPINE INJ (Re Img Loc: [facility] 1 Service: [place] [id number] (Case [id number] COMPLETE) FLUOROSCOPIC GUIDANCE OF NEEDLE/S(RAD Detailed) CPT:00532 Reason for Study: transforaminal epidural steroid injection Clinical History: Report Status: Verified Date Reported: JUL 27, 2024 Date Verified: JUL 27, 2024 Handle And Vent Machine Operator E-Sig:/ES/GREG OLIVIER JR Report: Study: [...] Primary Interpreting Staff: GREG OLIVIER JR, Radiologist (Handle And Vent Machine Operator) /GREG GAITAN JR [facility] Encounter Notes: All associated encounter notes This section contains the clinical notes associated to the Encounter. Date/Time Encounter Note(s) Provider Source Jul 20, 2024 11:32 AM ADDENDUM: LOCAL TITLE: Addendum STANDARD TITLE: ADDENDUM DATE OF NOTE: JUL 20, 2024@11:32:16 ENTRY DATE: JUL 20, 2024@11:32:17 AUTHOR: RENNY ARRIAGA EXP COSIGNER: URGENCY: STATUS: COMPLETED confirmed glasses have still not arrived in optometry, per prosthetics none are waiting down there to be picked up. At this point will reorder missing pair (duque polarized) - please let patient know and apologize for the delay again. /dheeraj/ RENNY ARRIAGA OD Tobacco Hanger Signed: 07/20/2024 11:34 Receipt Acknowledged By: 07/20/2024 13:04 /dheeraj/ WOODROW HEADLEY OPTOMETRY TECH ====== --- Original Document --- 06/29/24 TELEPHONE NOTE/SPECIALTY CLINIC: [place] called stating that he has been waitinf for 2 pairs of glasses, it has been 3 months. /dheeraj/ KALEN CRUZ ADVANCED INTAKE SPECIALIST Signed: 06/29/2024 15:16 Receipt Acknowledged By: 06/29/2024 15:37 /dheeraj/ WOODROW IYUTIER OPTOMETRY TECH 06/29/2024 15:40 /dheeraj/ CANDE CASAREZ [facility] TECHINICIAN 06/29/2024 15:44 /dheeraj/ Salena Crockett Optometry Health Graphics Edit Technician 06/29/2024 ADDENDUM STATUS: COMPLETED Will add provider to alert for status of 2 pairs ordered in March. /eileen HEADLEY OPTOMETRY TECH Signed: 06/29/2024 15:37 Receipt Acknowledged By: 06/29/2024 15:45 /dheeraj/ RENNY ARRIAGA OD Tobacco Hanger 06/29/2024 ADDENDUM STATUS: COMPLETED please let him know the specialty glasses have just arrived here this week and will be mailed out to him this week once they are verified. /dheeraj/ RENNY ARRIAGA OD Tobacco Hanger Signed: 06/29/2024 15:46 Receipt Acknowledged By: 06/29/2024 15:55 /eileen HEADLEY OPTOMETRY TECH 06/29/2024 ADDENDUM STATUS: COMPLETED I left a message on patients voicemail that his glasses just arrived, and will be verified, and then will go out to him this week. /eileen HEADLEY OPTOMETRY TECH Signed: 06/29/2024 15:55 07/20/2024 ADDENDUM STATUS: COMPLETED [place] calls back stating that he got his sunglasses but not his other pair. Would like a call back regarding this and to possibly be tracked. Primary phone confirmed. /dheeraj/ ROBERTO AVILA ADVANCED INTAKE SPECIALIST Signed: 07/20/2024 10:30 Receipt Acknowledged By: 07/20/2024 10:40 /eileen HEADLEY OPTOMETRY TECH 07/20/2024 ADDENDUM STATUS: COMPLETED I tried calling patient to ask which pair of glasses he did not receive. ((Teams message says sun rx, and CPRS says he got those)However, I was only able to leave a voice mail. I will alert the provider of these specialty glasses on tracking and verification of glasses. /eileen HEADLEY OPTOMETRY TECH Signed: 07/20/2024 10:39 Receipt Acknowledged By: 07/20/2024 11:32 /dheeraj/ RENNY ARRIAGA OD Tobacco Hanger 07/20/2024 ADDENDUM STATUS: COMPLETED I was able to reach patient on phone and I explained that the glasses were reordered today. He said he understands. He was grateful for the updates, and the reorder. /eileen HEADLEY OPTOMETRY TECH Signed: 07/20/2024 13:03 RENNY ARRIAGA [place] [facility] Jul 20, 2024 10:35 AM ADDENDUM: LOCAL TITLE: Addendum STANDARD TITLE: ADDENDUM DATE OF NOTE: JUL 20, 2024@10:35:10 ENTRY DATE: JUL 20, 2024@10:35:11 AUTHOR: WOODROW HEADLEY EXP COSIGNER: URGENCY: STATUS: COMPLETED I tried calling patient to ask which pair of glasses he did not receive. ((Teams message says sun rx, and CPRS says he got those)However, I was only able to leave a voice mail. I will alert the provider of these specialty glasses on tracking and verification of glasses. /dheeraj/ WOODROW YIUTIER OPTOMETRY TECH Signed: 07/20/2024 10:39 Receipt Acknowledged By: 07/20/2024 11:32 /dheeraj/ RENNY ARRIAGA OD Tobacco Hanger ====== --- Original Document --- 06/29/24 TELEPHONE NOTE/SPECIALTY CLINIC: called stating that he has been waitinf for 2 pairs of glasses, it has been 3 months. /dheeraj/ KALEN CRUZ ADVANCED INTAKE SPECIALIST Signed: 06/29/2024 15:16 Receipt Acknowledged By: 06/29/2024 15:37 /dheeraj/ WOODROW White WineDemon OPTOMETRY TECH 06/29/2024 15:40 /es/ CANDE CASAREZ [facility] TECHINICIAN 06/29/2024 15:44 /es/ Salena Crockett Optometry Health Graphics Edit Technician 06/29/2024 ADDENDUM STATUS: COMPLETED Will add provider to alert for status of 2 pairs ordered in March. /eileen White FANG OPTOMETRY TECH Signed: 06/29/2024 15:37 Receipt Acknowledged By: 06/29/2024 15:45 /dheeraj/ RENNY ARRIAGA OD Tobacco Hanger 06/29/2024 ADDENDUM STATUS: COMPLETED please let him know the specialty glasses have just arrived here this week and will be mailed out to him this week once they are verified. /dheeraj/ RENNY ARRIAGA OD Tobacco Hanger Signed: 06/29/2024 15:46 Receipt Acknowledged By: 06/29/2024 15:55 /dheeraj/ WOODROW YIUTIER OPTOMETRY TECH 06/29/2024 ADDENDUM STATUS: COMPLETED I left a message on patients voicemail that his glasses just arrived, and will be verified, and then will go out to him this week. /dheeraj/ WOODROW HEADLEY OPTOMETRY TECH Signed: 06/29/2024 15:55 07/20/2024 ADDENDUM STATUS: COMPLETED [place] calls back stating that he got his sunglasses but not his other pair. Would like a call back regarding this and to possibly be tracked. Primary phone confirmed. /dheeraj/ ROBERTO AVILA ADVANCED INTAKE SPECIALIST Signed: 07/20/2024 10:30 Receipt Acknowledged By: 07/20/2024 10:40 /dheeraj/ WOODROW HEADLEY OPTOMETRY TECH WOODROW HEADLEY [place] [facility] Jul 20, 2024 10:29 AM ADDENDUM: LOCAL TITLE: Addendum STANDARD TITLE: ADDENDUM DATE OF NOTE: JUL 20, 2024@10:29:07 ENTRY DATE: JUL 20, 2024@10:29:08 AUTHOR: ROBERTO AVILA EXP COSIGNER: URGENCY: STATUS: COMPLETED calls back stating that he got his sunglasses but not his other pair. Would like a call back regarding this and to possibly be tracked. Primary phone confirmed. /dheeraj/ ROBERTO AVILA ADVANCED INTAKE SPECIALIST Signed: 07/20/2024 10:30 Receipt Acknowledged By: 07/20/2024 10:40 /dheeraj/ WOODROW HEADLEY OPTOMETRY TECH ====== --- Original Document --- 06/29/24 TELEPHONE NOTE/SPECIALTY CLINIC: [place] called stating that he has been waitinf for 2 pairs of glasses, it has been 3 months. /dheeraj/ KALEN CRUZ ADVANCED INTAKE SPECIALIST Signed: 06/29/2024 15:16 Receipt Acknowledged By: 06/29/2024 15:37 /eileen HEADLEY OPTOMETRY TECH 06/29/2024 15:40 /dheeraj/ CANDE CASAREZ [facility] TECHINICIAN 06/29/2024 15:44 /es/ Salena Crockett Optometry Health Graphics Edit Technician 06/29/2024 ADDENDUM STATUS: COMPLETED Will add provider to alert for status of 2 pairs ordered in March. /eileen White WineDemon OPTOMETRY TECH Signed: 06/29/2024 15:37 Receipt Acknowledged By: 06/29/2024 15:45 /dheeraj/ RENNY ARRIAGA OD Tobacco Hanger 06/29/2024 ADDENDUM STATUS: COMPLETED please let him know the specialty glasses have just arrived here this week and will be mailed out to him this week once they are verified. /eileen ARRIAGA OD Tobacco Hanger Signed: 06/29/2024 15:46 Receipt Acknowledged By: 06/29/2024 15:55 /dheeraj/ WOODROW YIUTIER OPTOMETRY TECH 06/29/2024 ADDENDUM STATUS: COMPLETED I left a message on patients voicemail that his glasses just arrived, and will be verified, and then will go out to him this week. /eileen White WineDemon OPTOMETRY TECH Signed: 06/29/2024 15:55 07/20/2024 ADDENDUM STATUS: COMPLETED I tried calling patient to ask which pair of glasses he did not receive. ((Teams message says sun rx, and CPRS says he got those)However, I was only able to leave a voice mail. I will alert the provider of these specialty glasses on tracking and verification of glasses. /eileen White WineDemon OPTOMETRY TECH Signed: 07/20/2024 10:39 Receipt Acknowledged By: * AWAITING SIGNATURE * RENNY ARRIAGA SACHA M [place] [facility] [place] [facility] Jun 29, 2024 03:45 PM ADDENDUM: LOCAL TITLE: Addendum STANDARD TITLE: ADDENDUM DATE OF NOTE: JUN 29, 2024@15:45:19 ENTRY DATE: JUN 29, 2024@15:45:19 AUTHOR: RENNY ARRIAGA EXP COSIGNER: URGENCY: STATUS: COMPLETED please let him know the specialty glasses have just arrived here this week and will be mailed out to him this week once they are verified. /eileen ARRIAGA OD Tobacco Hanger Signed: 06/29/2024 15:46 Receipt Acknowledged By: 06/29/2024 15:55 /eileen HEADLEY OPTOMETRY TECH ====== --- Original Document --- 06/29/24 TELEPHONE NOTE/SPECIALTY CLINIC: [place] called stating that he has been waitinf for 2 pairs of glasses, it has been 3 months. /dheeraj/ KALEN CRUZ ADVANCED INTAKE SPECIALIST Signed: 06/29/2024 15:16 Receipt Acknowledged By: 06/29/2024 15:37 /eileen YIUTIER OPTOMETRY TECH 06/29/2024 15:40 /es/ CANDE CASAREZ [facility] TECHINICIAN 06/29/2024 15:44 /es/ Salena Crockett Optometry Health Graphics Edit Technician 06/29/2024 ADDENDUM STATUS: COMPLETED Will add provider to alert for status of 2 pairs ordered in March. /eileen HEADLEY OPTOMETRY TECH Signed: 06/29/2024 15:37 Receipt Acknowledged By: 06/29/2024 15:45 /es/ RENNY ARRIAGA OD Tobacco Hanger 06/29/2024 ADDENDUM STATUS: COMPLETED I left a message on patients voicemail that his glasses just arrived, and will be verified, and then will go out to him this week. /eileen DOTYIER OPTOMETRY TECH Signed: 06/29/2024 15:55 RENNY ARRIAGA [place] [facility] [place] [facility] Jun 29, 2024 03:35 PM ADDENDUM: LOCAL TITLE: Addendum STANDARD TITLE: ADDENDUM DATE OF NOTE: JUN 29, 2024@15:35:54 ENTRY DATE: JUN 29, 2024@15:35:55 AUTHOR: WOODROW HEADLEY EXP COSIGNER: URGENCY: STATUS: COMPLETED Will add provider to alert for status of 2 pairs ordered in March. /eileen HEADLEY OPTOMETRY TECH Signed: 06/29/2024 15:37 Receipt Acknowledged By: 06/29/2024 15:45 /es/ RENNY ARRIAGA OD Tobacco Hanger ====== --- Original Document --- 06/29/24 TELEPHONE NOTE/SPECIALTY CLINIC: called stating that he has been waitinf for 2 pairs of glasses, it has been 3 months. /dheeraj/ KALEN CRUZ ADVANCED INTAKE SPECIALIST Signed: 06/29/2024 15:16 Receipt Acknowledged By: 06/29/2024 15:37 /eileen HEADLEY OPTOMETRY TECH 06/29/2024 15:40 /dheeraj/ CANDE CASAREZ [facility] 06/29/2024 15:44 /dheeraj/ Salena Crockett Optometry Health Graphics Edit Technician 06/29/2024 ADDENDUM STATUS: UNSIGNED You may not VIEW this UNSIGNED Addendum. WOODROW HEADLEY [place] [facility] [facility] [facility] Jun 29, 2024 03:14 PM TELEPHONE ENCOUNTE R NOTE: LOCAL TITLE: TELEPHONE NOTE/SPECIALTY CLINIC STANDARD TITLE: TELEPHONE ENCOUNTER NOTE DATE OF NOTE: JUN 29, 2024@15:14 ENTRY DATE: JUN 29, 2024@15:15 AUTHOR: KALEN CRUZ EXP COSIGNER: URGENCY: STATUS: COMPLETED TELEPHONE NOTE/SPECIALTY CLINIC Has ADDENDA called stating that he has been waitinf for 2 pairs of glasses, it has been 3 months. /dheeraj/ KALEN CRUZ ADVANCED INTAKE SPECIALIST Signed: 06/29/2024 15:16 Receipt Acknowledged By: 06/29/2024 15:37 /eileen HEADLEY OPTOMETRY TECH 06/29/2024 15:40 /dheeraj/ CANDE CASAREZ [facility] TECHIN[facility] 06/29/2024 15:44 /eileen Crockett Optometry Health Graphics Edit Technician 06/29/2024 ADDENDUM STATUS: COMPLETED Will add provider to alert for status of 2 pairs ordered in March. /dheeraj/ WOODROW HEADLEY OPTOMETRY TECH Signed: 06/29/2024 15:37 Receipt Acknowledged By: 06/29/2024 15:45 /dheeraj/ RENNY ARRIAGA OD Tobacco Hanger 06/29/2024 ADDENDUM STATUS: COMPLETED please let him know the specialty glasses have just arrived here this week and will be mailed out to him this week once they are verified. /dheeraj/ RENNY ARRIAGA OD Tobacco Hanger Signed: 06/29/2024 15:46 Receipt Acknowledged By: 06/29/2024 15:55 /dheeraj/ WOODROW HEADLEY OPTOMETRY TECH 06/29/2024 ADDENDUM STATUS: COMPLETED I left a message on patients voicemail that his glasses just arrived, and will be verified, and then will go out to him this week. /dheeraj/ WOODROW White FANG OPTOMETRY TECH Signed: 06/29/2024 15:55 07/20/2024 ADDENDUM STATUS: COMPLETED calls back stating that he got his sunglasses but not his other pair. Would like a call back regarding this and to possibly be tracked. Primary phone confirmed. /dheeraj/ ROBERTO AVILA ADVANCED INTAKE SPECIALIST Signed: 07/20/2024 10:30 Receipt Acknowledged By: 07/20/2024 10:40 /dheeraj/ WOODROW HEADLEY OPTOMETRY TECH 07/20/2024 ADDENDUM STATUS: COMPLETED I tried calling patient to ask which pair of glasses he did not receive. ((Teams message says sun rx, and CPRS says he got those)However, I was only able to leave a voice mail. I will alert the provider of these specialty glasses on tracking and verification of glasses. /dheeraj/ WOODROW White WineDemon OPTOMETRY TECH Signed: 07/20/2024 10:39 Receipt Acknowledged By: 07/20/2024 11:32 /dheeraj/ RENNY ARRIAGA OD Tobacco Hanger 07/20/2024 ADDENDUM STATUS: COMPLETED confirmed glasses have still not arrived in optometry, per prosthetics none are waiting down there to be picked up. At this point will reorder missing pair (duque polarized) - please let patient know and apologize for the delay again. /dheeraj/ RENNY ARRIAGA OD Tobacco Hanger Signed: 07/20/2024 11:34 Receipt Acknowledged By: 07/20/2024 13:04 /dheeraj/ WOODROW HEADLEY OPTOMETRY TECH 07/20/2024 ADDENDUM STATUS: COMPLETED I was able to reach patient on phone and I explained that the glasses were reordered today. He said he understands. He was grateful for the updates, and the reorder. /dheeraj/ WOODROW HEADLEY OPTOMETRY TECH Signed: 07/20/2024 13:03 [facility]
--- OUTSIDE RECORDS SUMMARY | 2024-08-18 10:03 | XMS_ITS ---
Author Name [facility] Organization [facility] Address [address] [place] [address] Care Team Providers Care [place] Supervisor Name Role Phone EHSAN OVALLES Primary [...] PART A December 08, 2013 PART A [id number] KONRADDENTONMartin DAMICOBRIGID Lantigua PATIENT MEDICARE (WNR) MEDICARE (M) PART A December 08, 2013 PART A [id number] 62A KONRADBRIGID KRAMER PATIENT Selected Encounter This section includes the information on record at [place] for the Encounter. Date/Time Encounter Type Encounter Description Reason Pro vider Source Jul 06, 2024 12:23 PM Outpatient Encounter PM&RS PHYSICIAN IHE Encounter Template Text not used by [place] Plan of Treatment: Future Appointments (+ 6 [...] 02:30 PM AMBUL[facility] Aug 30, 2024 11:00 AM [facility] Sep 14, 2024 01:00 PM AMBULATORY - [facility] E [facility] Active, Pending, and Scheduled Orders This section includes a listing of several types of active, pending, and scheduled orders, including clinic medications orders, diagnostic test orders, procedure orders and consult orders; where the start date of the order is 45 days before the date of the Encounter or 45 days after the date of theEncounter. The data comes from all [place] treatment facilities. Test Date/Time Test Type Test Details Facility Name Jul 05, 2024 09:45 AM Consult Order COMMUNITY CARE-ACUPUNCTURE Cons Metallurgical Engineering Technician's Choice [facility] Social History: Smoking Status (Most current) [...] 12, 2023 10:46 AM VA-TOBACCO NEVER USED [facility] Tobacco Use History This section includes a history of the smoking, or tobacco-related health factors, that were collected on or before the date of the Encounter. The data comes from the [place] facility where the Encounter took place. Date/Time Smoking Status/Tobacco Use Comment F acility Oct 20, 2015 10:30 AM LIFET[facility] Sep 19, 2009 11:13 AM LIFETIME NON-TOBACCO USER [facility] Advance Directives: All historical and current [...] ADVANCE DIRECTIVE JASWANT DICKINSON [facility] Radiology Reports: +/- 30 days of [...] the Encounter. The data comes from all [place] treatment facilities. Date/Time Radiology Report Provider Source Jul 27, 2024 02:52 PM FLUOROSCOPIC [place] NCE OF NEEDLE/SPINE: COLBY HARTLEY [id number] -[id number] M Exm Date: JUL 27, 2024@14:52 Req Phys: YAIR FALCON [facility] Loc: CWM/NO/MED REHAB/SPINE INJ (Re Img Loc: [facility]/BUILDING 1 Service: [place] [address] (Case [id number] COMPLETE) FLUOROSCOPIC GUIDANCE OF NEEDLE/S(RAD Detailed) CPT:23724 Reason for Study: transforaminal epidural steroid injection Clinical History: Report Status: Verified Date Reported: JUL 27, 2024 Date Verified: JUL 27, 2024 Rd Project Manager E-Sig:/DHEERAJ/GREG OLIVIER JR Report: Study: Pain injection of [...] Primary Interpreting Staff: GREG OLIVIER JR, Radiologist (Rd Project Manager) /GREG GAITAN JR [facility] Encounter Notes: All associated encounter notes This section contains the clinical notes associated to the Encounter. Date/Time Encounter Note(s) Provider Source Jul 21, 2024 08:23 AM ADDENDUM: LOCAL TITLE: Addendum STANDARD TITLE: ADDENDUM DATE OF NOTE: JUL 21, 2024@08:23:17 ENTRY DATE: JUL 21, 2024@08:23:19 AUTHOR: COMFORT HENSLEY SA COSIGNER: URGENCY: STATUS: COMPLETED called requesting to reschedule Med Rehab appointment. Per cprs note, [facility] scheduled the for 08/24/2024 at 1:30pm for 60 minutes. aware and agreeable. /dheeraj/ COMFORT VIJAY GARRIDORIDDHI Signed: 07/21/2024 08:26 Receipt Acknowledged By: * AWAITING SIGNATURE * YAIR FALCON 07/21/2024 08:29 /eileen Bejarano LPN LPN 07/21/2024 08:27 /eileen Blake RN Med Rehab === --- Original Document --- 07/06/24 TELEPHONE NOTE/SPECIALTY CLINIC: offered vet next available 11/09/2024 for spine inj. states he does not want to wait that long and that is inhumane and unacceptable . let vet know Med Vijay provider is on a limited schedule due to leave. states he would like a c/b. please advise /dheeraj/ MARCELO SEGAL WILDLIFE MANAGER Signed: 07/06/2024 12:25 Receipt Acknowledged By: 07/06/2024 14:11 /eileen Bejarano LPN LPN 07/11/2024 09:00 /eileen Blake RN Med Rehab 07/06/2024 ADDENDUM STATUS: COMPLETED adding providers for advisement - possible overbook - ty /eileen Bejarano LPN LPN Signed: 07/06/2024 14:12 Receipt Acknowledged By: 07/20/2024 16:31 /eileen FALCON DO GREASE MAN * AWAITING SIGNATURE * HUMAIRA PITTS 07/06/2024 ADDENDUM STATUS: COMPLETED Telephone note with ARIELLA Mckinnon on 07/05/24 Last injection 09/30/23 Left L3-4 and right S1 transforaminal epidural steroid injection /dheeraj/ Jimenez Bejarano LPN LPN Signed: 07/06/2024 14:15 07/20/2024 ADDENDUM STATUS: COMPLETED Spoke with [facility] and he is scheduled for 11/23/2024 for spine and he says that he really cant wait that long because hes at the point where when he sneezes or coughs it hurts. Hes been off pain meds since his last injection because its been doing so well but at this point if he has to wait until November he doesnt want to have to go on them again. Hoping that he could possibly be seen sooner, he doesnt care when or what time he will come in. If he is not able to be seen sooner he would like to be referred out for something sooner if possible until he can be put on Dr. Garvey schedule accordingly. Primary phone confirmed. Please advise. /eileen AVILA ADVANCED WILDLIFE MANAGER Signed: 07/20/2024 08:41 Receipt Acknowledged By: 07/20/2024 16:30 /eileen FALCON DO GREASE MAN 07/20/2024 ADDENDUM STATUS: COMPLETED Reschedule 11/23 to 08/24 at 1:30, overbook ok. If an earlier appointment opens up, we will contact him. /eileen FALCON DO GREASE MAN Signed: 07/20/2024 16:36 Receipt Acknowledged By: 07/21/2024 08:15 /eileen AVILA ADVANCED WILDLIFE MANAGER 07/21/2024 07:45 /dheeraj/ Jimenez Bejarano LPN LPN 07/21/2024 08:26 /dheeraj/ Shaniqua Blake RN Med Rehab 07/21/2024 ADDENDUM STATUS: COMPLETED Called . No answer. LVM to cb to schedule. /eileen AVILA ADVANCED WILDLIFE MANAGER Signed: 07/21/2024 08:16 COMFORT HENSLEY [facility] [place] [facility] Jul 20, 2024 04:31 PM ADDENDUM: LOCAL TITLE: Addendum STANDARD TITLE: ADDENDUM DATE OF NOTE: JUL 20, 2024@16:31:11 ENTRY DATE: JUL 20, 2024@16:31:12 AUTHOR: YAIR FALCON EXP COSIGNER: URGENCY: STATUS: COMPLETED Reschedule 11/23 to 08/24 at 1:30, overbook ok. If an earlier appointment opens up, we will contact him. /dheeraj/ YAIR FALCON DO GREASE MAN Signed: 07/20/2024 16:36 Receipt Acknowledged By: 07/21/2024 08:15 /eileen BURTON WILDLIFE MANAGER 07/21/2024 07:45 /eileen Bejarano LPN LPN 07/21/2024 08:26 /eileen Blake RN Med Rehab === --- Original Document --- 07/06/24 TELEPHONE NOTE/SPECIALTY CLINIC: offered vet next available 11/09/2024 for spine inj. states he does not want to wait that long and that is inhumane and unacceptable . let vet know Med Vijay provider is on a limited schedule due to leave. states he would like a c/b. please advise /dheeraj/ MARCELO SEGAL WILDLIFE MANAGER Signed: 07/06/2024 12:25 Receipt Acknowledged By: 07/06/2024 14:11 /eileen Bejarano LPN LPN 07/11/2024 09:00 /eileen Blake RN Med Rehab 07/06/2024 ADDENDUM STATUS: COMPLETED adding providers for advisement - possible overbook - ty /eileen Bejarano LPN LPN Signed: 07/06/2024 14:12 Receipt Acknowledged By: 07/20/2024 16:31 /eileen FALCON DO GREASE MAN * AWAITING SIGNATURE * HUMAIRA PITTS 07/06/2024 ADDENDUM STATUS: COMPLETED Telephone note with ARIELLA Mckinnon on 07/05/24 Last injection 09/30/23 Left L3-4 and right S1 transforaminal epidural steroid injection /es/ Jimenez Bejarano LPN LPN Signed: 07/06/2024 14:15 07/20/2024 ADDENDUM STATUS: COMPLETED Spoke with [facility] and he is scheduled for 11/23/2024 for spine and he says that he really cant wait that long because hes at the point where when he sneezes or coughs it hurts. Hes been off pain meds since his last injection because its been doing so well but at this point if he has to wait until November he doesnt want to have to go on them again. Hoping that he could possibly be seen sooner, he doesnt care when or what time he will come in. If he is not able to be seen sooner he would like to be referred out for something sooner if possible until he can be put on Dr. Garvey schedule accordingly. Primary phone confirmed. Please advise. /dheeraj/ ROBERTO AVILA ADVANCED WILDLIFE MANAGER Signed: 07/20/2024 08:41 Receipt Acknowledged By: 07/20/2024 16:30 /dheeraj/ YAIR FALCON DO GREASE MAN 07/21/2024 ADDENDUM STATUS: COMPLETED Called . No answer. LVM to cb to schedule. /eileen AVILA ADVANCED WILDLIFE MANAGER Signed: 07/21/2024 08:16 07/21/2024 ADDENDUM STATUS: COMPLETED called requesting to reschedule Med Rehab appointment. Per cprs note, [facility] scheduled the for 08/24/2024 at 1:30pm for 60 minutes. aware and agreeable. /dheeraj/ COMFORT HENSLEY Signed: 07/21/2024 08:26 YAIR FALCON [facility] [place] [place] [facility] Jul 20, 2024 08:32 AM ADDENDUM: LOCAL TITLE: Addendum STANDARD TITLE: ADDENDUM DATE OF NOTE: JUL 20, 2024@08:32:44 ENTRY DATE: JUL 20, 2024@08:32:45 AUTHOR: ROBERTO AVILA EXP COSIGNER: URGENCY: STATUS: COMPLETED Spoke with Reading and he is scheduled for 11/23/2024 for spine and he says that he really cant wait that long because hes at the point where when he sneezes or coughs it hurts. Hes been off pain meds since his last injection because its been doing so well but at this point if he has to wait until November he doesnt want to have to go on them again. Hoping that he could possibly be seen sooner, he doesnt care when or what time he will come in. If he is not able to be seen sooner he would like to be referred out for something sooner if possible until he can be put on Dr. Garvey schedule accordingly. Primary phone confirmed. Please advise. /dheeraj/ ROBERTO AVILA ADVANCED WILDLIFE MANAGER Signed: 07/20/2024 08:41 Receipt Acknowledged By: 07/20/2024 16:30 /dheeraj/ YAIR FALCON DO GREASE MAN === --- Original Document --- 07/06/24 TELEPHONE NOTE/SPECIALTY CLINIC: offered vet next available 11/09/2024 for spine inj. states he does not want to wait that long and that is inhumane and unacceptable . let vet know Med Vijay provider is on a limited schedule due to leave. states he would like a c/b. please advise /eileen SEGAL WILDLIFE MANAGER Signed: 07/06/2024 12:25 Receipt Acknowledged By: 07/06/2024 14:11 /eileen Bejarano LPN LPN 07/11/2024 09:00 /eileen Blake RN Med Rehab 07/06/2024 ADDENDUM STATUS: COMPLETED adding providers for advisement - possible overbook - ty /eileen Bejarano LPN LPN Signed: 07/06/2024 14:12 Receipt Acknowledged By: 07/20/2024 16:31 /eileen FALCON DO GREASE MAN * AWAITING SIGNATURE * HUMAIRA PITTS 07/06/2024 ADDENDUM STATUS: COMPLETED Telephone note with ARIELLA Mckinnon on 07/05/24 Last injection 09/30/23 Left L3-4 and right S1 transforaminal epidural steroid injection /dheeraj/ Jimenez Bejarano LPN LPN Signed: 07/06/2024 14:15 ROBERTO AVILA [place] [facility] [place] [facility] Jul 06, 2024 02:11 PM ADDENDUM: LOCAL TITLE: Addendum STANDARD TITLE: ADDENDUM DATE OF NOTE: JUL 06, 2024@14:11:55 ENTRY DATE: JUL 06, 2024@14:11:55 AUTHOR: JIMENEZ BEJARANO EXP COSIGNER: URGENCY: STATUS: COMPLETED adding providers for advisement - possible overbook - ty /eileen Bejarano LPN LPN Signed: 07/06/2024 14:12 Receipt Acknowledged By: 07/20/2024 16:31 /es/ YAIR FALCON DO GREASE MAN * AWAITING SIGNATURE * HUMAIRA PITTS === --- Original Document --- 07/06/24 TELEPHONE NOTE/SPECIALTY CLINIC: offered vet next available 11/09/2024 for spine inj. states he does not want to wait that long and that is inhumane and unacceptable . let vet know Med Vijay provider is on a limited schedule due to leave. states he would like a c/b. please advise /dheeraj/ MARCELO SEGAL WILDLIFE MANAGER Signed: 07/06/2024 12:25 Receipt Acknowledged By: 07/06/2024 14:11 /eileen Bejarano LPN LPN 07/11/2024 09:00 /dheeraj/ Shaniqua Blake RN Med Rehab 07/06/2024 ADDENDUM STATUS: COMPLETED Telephone note with ARIELLA Mckinnon on 07/05/24 Last injection 09/30/23 Left L3-4 and right S1 transforaminal epidural steroid injection /dheeraj/ Jimenez Bejarano LPN LPN Signed: 07/06/2024 14:15 07/20/2024 ADDENDUM STATUS: COMPLETED Spoke with [place] and he is scheduled for 11/23/2024 for spine and he says that he really cant wait that long because hes at the point where when he sneezes or coughs it hurts. Hes been off pain meds since his last injection because its been doing so well but at this point if he has to wait until November he doesnt want to have to go on them again. Hoping that he could possibly be seen sooner, he doesnt care when or what time he will come in. If he is not able to be seen sooner he would like to be referred out for something sooner if possible until he can be put on Dr. Garvey schedule accordingly. Primary phone confirmed. Please advise. /dheeraj/ ROBERTO AVILA ADVANCED WILDLIFE MANAGER Signed: 07/20/2024 08:41 Receipt Acknowledged By: 07/20/2024 16:30 /dheeraj/ YAIR FALCON DO GREASE MAN 07/20/2024 ADDENDUM STATUS: UNSIGNED You may not VIEW this UNSIGNED Addendum. JIMENEZ BEJARANO [facility]TRL [facility] [place] [facility] Jul 06, 2024 12:23 PM TELEPHONE ENCOUNTER NOTE: LOCAL TITLE: TELEPHONE NOTE/SPECIALTY CLINIC STANDARD TITLE: TELEPHONE ENCOUNTER NOTE DATE OF NOTE: JUL 06, 2024@12:23 ENTRY DATE: JUL 06, 2024@12:23:14 AUTHOR: MARCELO SEGAL EXP COSIGNER: URGENCY: STATUS: COMPLETED TELEPHONE NOTE/SPECIALTY CLINIC Has ADDENDA offered vet next available 11/09/2024 for spine inj. states he does not want to wait that long and that is inhumane and unacceptable . let vet know Med Vijay provider is on a limited schedule due to leave. states he would like a c/b. please advise /eileen SEGAL WILDLIFE MANAGER Signed: 07/06/2024 12:25 Receipt Acknowledged By: 07/06/2024 14:11 /eileen Bejarano LPN LPN 07/11/2024 09:00 /es/ Shaniqua Blake RN Med Rehab 07/06/2024 ADDENDUM STATUS: COMPLETED adding providers for advisement - possible overbook - ty /eileen Bejarano LPN LPN Signed: 07/06/2024 14:12 Receipt Acknowledged By: 07/20/2024 16:31 /eileen FALCON DO GREASE MAN * AWAITING SIGNATURE * HUMAIRA PITTS 07/06/2024 ADDENDUM STATUS: COMPLETED Telephone note with ARIELLA Mckinnon on 07/05/24 Last injection 09/30/23 Left L3-4 and right S1 transforaminal epidural steroid injection /eileen Bejarano LPN LPN Signed: 07/06/2024 14:15 07/20/2024 ADDENDUM STATUS: COMPLETED Spoke with and he is scheduled for 11/23/2024 for spine and he says that he really cant wait that long because hes at the point where when he sneezes or coughs it hurts. Hes been off pain meds since his last injection because its been doing so well but at this point if he has to wait until November he doesnt want to have to go on them again. Hoping that he could possibly be seen sooner, he doesnt care when or what time he will come in. If he is not able to be seen sooner he would like to be referred out for something sooner if possible until he can be put on Dr. Garvey schedule accordingly. Primary phone confirmed. Please advise. /dheeraj/ ROBERTO AVILA ADVANCED WILDLIFE MANAGER Signed: 07/20/2024 08:41 Receipt Acknowledged By: 07/20/2024 16:30 /eileen FALCON DO GREASE MAN 07/20/2024 ADDENDUM STATUS: COMPLETED Reschedule 11/23 to 08/24 at 1:30, overbook ok. If an earlier appointment opens up, we will contact him. /eileen FALCON DO GREASE MAN Signed: 07/20/2024 16:36 Receipt Acknowledged By: 07/21/2024 08:15 /eileen AVILA ADVANCED WILDLIFE MANAGER 07/21/2024 07:45 /eileen Bejarano LPN LPN 07/21/2024 08:26 /es/ Shaniqua Blake RN Med Rehab 07/21/2024 ADDENDUM STATUS: COMPLETED Called . No answer. LVM to cb to schedule. /es/ ROBERTO AVILA ADVANCED WILDLIFE MANAGER Signed: 07/21/2024 08:16 07/21/2024 ADDENDUM STATUS: COMPLETED [facility] called requesting to reschedule Med Rehab appointment. Per cprs note, [facility] scheduled the for 08/24/2024 at 1:30pm for 60 minutes. aware and agreeable. /es/ COMFORT HENSLEY Signed: 07/21/2024 08:26 Receipt Acknowledged By: * AWAITING SIGNATURE * YAIR FALCON 07/21/2024 08:29 /es/ Jimenez Bejarano LPN LPN 07/21/2024 08:27 /es/ Shaniqua Blake RN Med Rehab [facility]
--- OUTSIDE RECORDS SUMMARY | 2024-08-18 10:03 | XMS_ITS | Encounter Summary ---
Author Name [place] Address [address] [place] [address] Care Team Providers Care Electrical Appliance Servicer Name Role Phone EHSAN OVALLES Primary Care [...] PART A December 08, 2013 PART A [id number] BRIGID RAMOS PATIENT MEDICARE (WNR) MEDICARE (M) PART A December 08, 2013 PART A [id number] 62A [phone] BRIGID RAMOS PATIENT Selected Encounter This section includes the information on record at [place] for the Encounter. Date/Time Encounter Type Encounter Description Reason Pro vider Source Jun 01, 2024 12:00 PM Outpatient Encounter COMMUNITY CARE CONSULT IHE Encounter Template Text not used by [place] [...] 20 appointments. The data comes from all [place] treatment facilities. Appointment Date/Time Appointment Type Appointme nt Facility Name Jun 03, 2024 09:50 AM AMBULATORY - MEDICINE [place] [facility] [place] [facility] Jun 07, 2024 11:30 AM AMBULATORY - NONE [place] [facility] [place] [facility] Jul 27, 2024 02:30 PM AMBULATORY - REHAB MEDICIN E [facility] [facility] Aug 30, 2024 11:00 AM AMBULATORY - MEDICINE [place] [facility] [place] [facility] Sep 14, 2024 01:00 PM AMBULATORY - REHAB MEDICIN E [place] [facility] [place] [facility] Active, Pending, and Scheduled Orders This section includes a listing of several types of active, pending, and scheduled orders, including clinic medications orders, diagnostic test orders, procedure orders and consult orders; where the start date of the order is 45 days before the date of the Encounter or 45 days after the date of theEncounter. The data comes from all [place] treatment facilities. Test Date/Time Test Type Test Details Facility Name May 16, 2024 02:21 PM Consult Order COMMUNITY CARE-UROLOGY Cons Motor Vehicle Assembly Supervisor's Choice [place] [facility] [facility] Jul 05, 2024 09:45 AM Consult Order COMMUNITY CARE-ACUPUNCTURE Cons Motor Vehicle Assembly Supervisor's Choice [place] [facility] [place] [facility] Lab Results: +/- 30 days of [...] Range Comment May 12, 2024 07:53 AM [facility] METHADONE SCREEN Specimen Type: URINE Comment: MALCOLM test are qualitative, any L or H flags only indicate a VA alert was sent. Ordering Provider: DEE DEE WILSON Report Released Date/Time: May 11, 2024 03:52 PM Reporting Lab: [facility] [address] [facility] [address] Performing Lab: [facility] [address] [facility] [address] METHADONE SCREEN None detected(Nega tive) L Negative May 12, 2024 07:53 AM [facility] ALCOHOL, ETHYL URINE PANEL Specimen Type: URINE [...] May 11, 2024 03:52 PM Reporting Lab: [address] [address] Performing Lab: [address] [address] ALCOHOL, ETHYL URINE NONE-DETECTED mg/dL NONE-DETEC SHAHZAD, cutoff = 10 mg/dL PH, MALCOLM 5.6 [pH] 4-10 CREATININE, MALCOLM 162.14 mg/dL >20 SP.GRAVITY, MALCOLM 1.021 H 1.00 3-1.02 0 May 12, 2024 07:53 AM [facility] AMPHETAMINES SCREEN PANEL Specimen Type: URINE Comment: [...] May 11, 2024 03:52 PM Reporting Lab: [address] [address] Performing Lab: [address] [address] AMPHETAMINES SCREEN NONE-DETECTED None-Detec shahzad, Cutoff = 1000 ng/mL PH, MALCOLM 5.6 [pH] 4-10 CREATININE, MALCOLM 162.14 mg/dL >20 SP.GRAVITY, MALCOLM 1.021 H 1.00 3-1.02 0 May 12, 2024 07:53 AM [facility] FENTANYL SCREEN PANEL Specimen Type: URINE Comment: [...] May 11, 2024 03:52 PM Reporting Lab: [address] [address] Performing Lab: [address] [address] FENTANYL SCREEN NONE-DETECTE D ng/mL Negative: Cutoff = 1.00 ng/mL PH, MALCOLM 5.6 [pH] 4-10 CREATININE, MALCOLM 156.70 mg/dL >20 SP.GRAVITY, MALCOLM 1.020 1.00 3-1.02 0 May 12, 2024 07:53 AM [facility] BUPRENORPHINE SCREEN PANEL Specimen Type: URINE Comment: [...] May 11, 2024 03:52 PM Reporting Lab: [address] [address] Performing Lab: [address] [address] BUPRENORPHINE (URINE) NONE-DETECTED None Detected, Cutoff = 10.0 ng/mL PH, MALCOLM 5.6 [pH] 4-10 CREATININE, MALCOLM 162.14 mg/dL >20 SP.GRAVITY, MALCOLM 1.021 H 1.00 3-1.02 0 May 12, 2024 07:53 AM [facility] CANNABINOIDS SCREEN PANEL Specimen Type: [...] May 11, 2024 03:52 PM Reporting Lab: [address] [address] Performing Lab: [address] [address] CANNABINOIDS SCREEN NONE-DETECTED None-Detec shahzad,Cutoff = 50 ng/mL PH, MALCOLM 5.6 [pH] 4-10 CREATININE, MALCOLM 162.14 mg/dL >20 SP.GRAVITY, MALCOLM 1.021 H 1.00 3-1.02 0 May 12, 2024 07:53 AM [facility] COCAINE SCREEN PANEL Specimen Type: URINE Comment: [...] May 11, 2024 03:52 PM Reporting Lab: [address] [address] Performing Lab: [address] [address] COCAINE SCREEN NONE-DETECTED N one-Detec shahzad,Cutoff = 300 ng/mL PH, MALCOLM 5.6 [pH] 4-10 CREATININE, MALCOLM 162.14 mg/dL >20 SP.GRAVITY, MALCOLM 1.021 H 1.00 3-1.02 0 May 12, 2024 07:53 AM [facility] BENZODIAZEPINES SCREEN PANEL Specimen Type: URINE Comment: [...] May 11, 2024 03:52 PM Reporting Lab: [address] [address] Performing Lab: [address] [address] BENZODIAZEPINES SCREEN NONE-DETECTED None-Detec shahzad, Cutoff = 200 ng/mL PH, MALCOLM 5.6 [pH] 4-10 CREATININE, MALCOLM 162.14 mg/dL >20 SP.GRAVITY, MALCOLM 1.021 H 1.00 3-1.02 0 May 12, 2024 07:53 AM [facility] OPIATES SCREEN PANEL Specimen Type: URINE Comment: [...] May 11, 2024 03:52 PM Reporting Lab: [address] [address] Performing Lab: [address] [address] OPIATES SCREEN NONE-DETECTED N one-Detec shahzad, Cutoff = 300 ng/mL PH, MALCOLM 5.6 [pH] 4-10 CREATININE, MALCOLM 162.14 mg/dL >20 SP.GRAVITY, MALCOLM 1.021 H 1.00 3-1.02 0 May 12, 2024 07:53 AM [facility] OXYCODONE SCREEN PANEL Specimen Type: URINE Comment: [...] May 11, 2024 03:52 PM Reporting Lab: [address] [address] Performing Lab: [address] [address] OXYCODONE SCREEN NONE-DETECTED None-Detec shahzad, Cutoff = 100 ng/mL PH, MALCOLM 5.6 [pH] 4-10 CREATININE, MALCOLM 162.14 mg/dL >20 SP.GRAVITY, MALCOLM 1.021 H 1.00 3-1.02 0 May 12, 2024 07:47 AM [facility] MAGNESIUM Specimen Type: SERUM No comment entered. Ordering Provider: EHSAN OVALLES Report Released Date/Time: Nov 11, 2023 05:57 AM Reporting Lab: [address] [address] Performing Lab: [address] [address] MAGNESIUM 2.0 mg/dL 1.6-2.6 May 12, 2024 07:47 AM [facility] URIC ACID Specimen Type: SERUM No comment entered. Ordering Provider: EHSAN OVALLES Report Released Date/Time: Nov 11, 2023 05:57 AM Reporting Lab: [address] [address] Performing Lab: [address] [address] URIC ACID 5.6 mg/dL 3.5-7.2 May 12, 2024 07:47 AM [facility] HEMOGLOBIN A1C PANEL Specimen Type: BLOOD Comment: [...] Nov 11, 2023 05:57 AM Reporting Lab: [address] [address] Performing Lab: [address] [address] HEMOGLOBIN A1C 5.0 4.0-5.6 May 12, 2024 07:47 AM [facility] LIPID PANEL FASTING Specimen Type: SERUM No comment entered. Ordering Provider: EHSAN OVALLES Report Released Date/Time: Nov 11, 2023 05:57 AM Reporting Lab: [address] [address] Performing Lab: [address] [address] CHOLESTEROL 246 mg/dL H TRIGLYCERIDE 153 mg/dL H 0-150 LDL calculated 182 mg/dL H 0-129 CHOL/HDL 7.5 HDL CHOLESTEROL 33 mg/dL L 40-60 May 12, 2024 07:47 AM [facility] PSA Specimen Type: SERUM No comment entered. Ordering Provider: EHSAN OVALLES Report Released Date/Time: Nov 11, 2023 05:57 AM Reporting Lab: [address] [address] Performing Lab: [facility] [address] [facility] [address] PSA 0.84 ng/mL 0.00-4.00 May 12, 2024 07:47 AM [facility] LIVER FUNCTION Specimen Type: SERUM No comment entered. Ordering Provider: EHSAN OVALLES Report Released Date/Time: Nov 11, 2023 05:57 AM Reporting Lab: [facility] [address] [facility] [address] Performing Lab: [address] [address] PROTEIN,TOTAL 6.6 g/dL 6.0-8.3 ALBUMIN 3.8 g/dL 3.5-5.0 ALKALINE PHOSPHATASE 59 U/L 40-150 AST 20 U/L 5-34 ALT 37 U/L BILIRUBIN, TOTAL 0.4 mg/dL 0.2-1.2 May 12, 2024 07:47 AM [facility] TSH Specimen Type: SERUM No comment entered. Ordering Provider: EHSAN OVALLES Report Released Date/Time: Nov 11, 2023 05:57 AM Reporting Lab: [address] [address] Performing Lab: [address] [address] TSH 4.05 u[IU]/mL 0.35-5.00 May 12, 2024 07:47 AM [facility] BASIC METABOLIC PANEL (fasting) Specimen Type: SERUM No comment entered. Ordering Provider: EHSAN OVALLES Report Released Date/Time: Nov 11, 2023 05:57 AM Reporting Lab: [address] [address] Performing Lab: [address] [address] UREA NITROGEN 22 mg/dL 7-25 GLUCOSE 88 mg/dL 65-100 SODIUM 141 mmol/L 135-145 POTASSIUM 4.4 mmol/L 3.5-5.0 CHLORIDE 108 mmol/L 100-110 CO2 23 meq/L 20-30 CREATININE, Serum 1.09 mg/dL 0.50-1.40 eGFR(CKD-EPI 2020) 82 mL/min >60 May 12, 2024 07:47 AM [facility] CBC AND DIFF (AUTO) Specimen Type: BLOOD No comment entered. Ordering Provider: EHSAN OVALLES Report Released Date/Time: Nov 11, 2023 05:57 AM Reporting Lab: [facility] [address] [facility] [address] Performing Lab: [facility] [address] [facility] [address] WBC 8.27 10*3/uL 4.50-11.00 RBC 5.05 10*6/uL [...] 12, 2023 10:46 AM VA-TOBACCO NEVER USED [facility] Tobacco Use History This section includes a history of the smoking, or tobacco-related health factors, that were collected on or before the date of the Encounter. The data comes from the [place] facility where the Encounter took place. Date/Time Smoking Status/Tobacco Use Comment Trisha acility Oct 20, 2015 10:30 AM LIFETIME NON-TOBACCO USER [facility] Sep 19, 2009 11:13 AM LIFETIME NON-TOBACCO USER [facility] Advance Directives: All historical and current Section [...] JASWANT DICKINSON [facility] Encounter Notes: All associated encounter notes This section contains the clinical notes associated to the Encounter. Date/Time Encounter Note(s) Provider Source Jun 01, 2024 12:00 PM NONVA CONSULT: LOCAL TITLE: COMMUNITY CARE-CONSULT RESULT NOTE STANDARD TITLE: NONVA CONSULT DATE OF NOTE: JUN 01, 2024@12:00 ENTRY DATE: JUN 28, 2024@08:21:24 AUTHOR: ANDRY MEDRANO EXP COSIGNER: URGENCY: STATUS: COMPLETED VistA Imaging - Scanned Document SCANNED DOCUMENT SIGNATURE NOT REQUIRED Electronically Filed: 06/28/2024 by: ANDRY WILKINSON [facility]
--- OUTSIDE RECORDS SUMMARY | 2024-08-18 10:03 | XMS_ITS ---
Author Name [place] Address [address] [place] [address] Care Team Providers Care Wood Machine Carver Name Role Phone EHSAN OVALLES Primary Care [...] PART A December 08, 2013 PART A [id number] [phone] KARENMartin MARGAUXBRIGID Lantigua PATIENT MEDICARE (WNR) MEDICARE ([place]) PART A December 08, 2013 PART A [id number] 62A BRIGID RAMOS PATIENT Selected Encounter This section includes the information on record at [place] for the Encounter. Date/Time Encounter Type Encounter Description Reason Pro vider Source Jun 21, 2024 08:17 AM Outpatient Encounter PRIMARY CARE/MEDICINE IHE Encounter Template Text not used by [place] Plan of Treatment: Future Appointments (+ 6 [...] PM [facility]ULAT[facility] Aug 30, 2024 11:00 AM AMBULATORY - MEDICINE [facility] Sep 14, 2024 01:00 PM [facility] Active, Pending, and Scheduled Orders This section includes a listing of several types of active, pending, and scheduled orders, including clinic medications orders, diagnostic test orders, procedure orders and consult orders; where the start date of the order is 45 days before the date of the Encounter or 45 days after the date of theEncounter. The data comes from all [place] treatment facilities. Test Date/Time Test Type Test Details Facility Name May 16, 2024 02:21 PM Consult Order COMMUNITY CARE-UROLOGY Cons Director Of Medical Staff Services[facility] Choice [facility] Jul 05, 2024 09:45 AM Consult Order COMMUNITY CARE-ACUPUNCTURE Cons Director Of Medical Staff Services's Choice [facility] Social History: Smoking Status (Most current) [...] 12, 2023 10:46 AM VA-TOBACCO NEVER USED [facility] Tobacco Use History This section includes a history of the smoking, or tobacco-related health factors, that were collected on or before the date of the Encounter. The data comes from the [place] facility where the Encounter took place. Date/Time Smoking Status/Tobacco Use Comment F acility Oct 20, 2015 10:30 AM LIFETIME NON-TOBACCO USER [facility] Sep 19, 2009 11:13 AM LIFETIME NON-TOBACCO USER [facility] Advance Directives: All historical and current Section [...] Mar 22, 2018 ADVANCE DIRECTIVE JASWANT DICKINSON [place] [facility] Encounter Notes: All associated encounter notes This section contains the clinical notes associated to the Encounter. Date/Time Encounter Note(s) Provider Source Jun 21, 2024 09:17 AM ADDENDUM: LOCAL TITLE: Addendum STANDARD TITLE: ADDENDUM DATE OF NOTE: JUN 21, 2024@09:17:17 ENTRY DATE: JUN 21, 2024@09:17:17 AUTHOR: KELLY ESCOBAR COSIGNER: URGENCY: STATUS: COMPLETED states he already has a pill splitter, and would like to be called back please. [phone]. thank you. /dheeraj/ KELLY ESCOBAR ADVANCED MIDDLE SCHOOL LIBRARIAN Signed: 06/21/2024 09:18 Receipt Acknowledged By: 06/21/2024 14:16 /dheeraj/ ADEN VALLECILLO LPN PACMaria Elena 10 === --- Original Document --- 06/21/24 PRIMARY CARE SECURE MESSAGING: ------Original Message ------ Sent: 06/18/2024 10:05 AM ET From: DONELL HARTLEY To: Adarsh OVALLES_PRIMARY CARE_[facility] Subject: Medication:Cholesterol medication Hello, The cholesterol meds you sent me say to take half before bedtime. When I cut them they shatter and I don't think I'm getting the correct dosage. Please advise. Donell Becerril /dheeraj/ LATASHA BARON ADVANCED MIDD[employer] SCHOOL LIBRARIAN Signed: 06/21/2024 08:17 Receipt Acknowledged By: 06/21/2024 08:52 /eileen DOSS RN REGISTERED NURSE 06/21/2024 08:54 /dheeraj/ ADEN VALLECILLO LPN PACMaria Elena 10 06/21/2024 ADDENDUM STATUS: COMPLETED Tablet splitter will be mailed to Arian /eileen VALLECILLO LPN PACT 10 Signed: 06/21/2024 08:54 KELLY ESCOBAR [place] [facility] [place] [facility] Jun 21, 2024 08:17 AM PRIMARY CARE SECUR E MESSAGING: LOCAL TITLE: PRIMARY CARE SECURE MESSAGING STANDARD TITLE: PRIMARY CARE SECURE MESSAGING DATE OF NOTE: JUN 21, 2024@08:17 ENTRY DATE: JUN 21, 2024@08:17:46 AUTHOR: LATASHA BARON EXP COSIGNER: URGENCY: STATUS: COMPLETED PRIMARY CARE SECURE MESSAGING Has ADDENDA ------Original Message ------ Sent: 06/18/2024 10:05 AM ET From: DONELL HARTLEY To: Adarsh OVALLES_PRIMARY CARE_[facility] Subject: Medication:Cholesterol medication Hello, The cholesterol meds you sent me say to take half before bedtime. When I cut them they shatter and I don't think I'm getting the correct dosage. Please advise. Donell Becerril /dheeraj/ LATASHA BARON ADVANCED [employer] S[employer] LIBRARIAN Signed: 06/21/2024 08:17 Receipt Acknowledged By: 06/21/2024 08:52 /eileen DOSS RN REGISTERED NURSE 06/21/2024 08:54 /eileen VALLECILLO LPN PACT 10 06/21/2024 ADDENDUM STATUS: COMPLETED Tablet splitter will be mailed to Arian /eileen VALLECILLO LPN PACT 10 Signed: 06/21/2024 08:54 06/21/2024 ADDENDUM STATUS: COMPLETED states he already has a pill splitter, and would like to be called back please. [phone]. thank you. /es/ KELLY ESCOBAR ADVANCED MIDDLE SCHOOL LIBRARIAN Signed: 06/21/2024 09:18 Receipt Acknowledged By: * AWAITING SIGNATURE * ADEN VALLECILLO,LATASHA Neal [facility]
--- OUTSIDE RECORDS SUMMARY | 2024-08-18 10:03 | XMS_ITS | Encounter Summary ---
Author Name Department [place] Organization [place] Address [address] [place] [address] Care Team Providers Care X Ray Consultant Name Role Phone EHSAN OVALLES Primary [...] PART A December 08, 2013 PART A [id number] 62A KONRADDENTONMartin DAMICOBRIGID Lantigua PATIENT MEDICARE (WNR) MEDICARE ([place]) PART A December 08, 2013 PART A [id number] 62A KONRADBRIGID KRAMER PATIENT Selected Encounter This section includes the information on record at [place] for the Encounter. Date/Time Encounter Type Encounter Description Reason Pro vider Source Jul 06, 2024 12:17 PM Outpatient Encounter PM&RS PHYSICIAN IHE Encounter Template Text not used by [place] Plan of Treatment: Future Appointments (+ 6 [...] 20 appointments. The data comes from all [place] treatment facilities. Appointment Date/Time Appointment Type Appointme nt Facility Name Jul 27, 2024 02:30 PM AMBULATORY - REHAB MEDICIN E [place] [facility] Aug 30, 2024 11:00 AM AMBULATORY - MEDICINE [facility] Sep 14, 2024 01:00 PM [facility] Active, Pending, and Scheduled Orders This section includes a listing of several types of active, pending, and scheduled orders, including clinic medications orders, diagnostic test orders, procedure orders and consult orders; where the start date of the order is 45 days before the date of the Encounter or 45 days after the date of theEncounter. The data comes from all [place] treatment facilities. Test Date/Time Test Type Test Details Facility Name Jul 05, 2024 09:45 AM Consult Order COMMUNITY CARE-ACUPUNCTURE Cons Site Worker's Choice [facility] Social History: Smoking Status (Most current) and Tobacco Use (All prior to encounter date) This section includes the most current, and the historical, smoking and tobacco- related health factors from the [place] facility where the Encounter took place. Current Smoking Status This section includes the most current smoking, or tobacco-related health factor, from the [place] facility where the Encounter took place. Date/Time Current Smoking Status Comment Jose ity May 12, 2023 10:46 AM VA-TOBACCO NEVER USED [facility] Tobacco Use History This section includes a history of the smoking, or tobacco-related health factors, that were collected on or before the date of the Encounter. The data comes from the [place] facility where the Encounter took place. Date/Time Smoking Status/Tobacco Use Comment F acility Oct 20, 2015 10:30 AM LIFETIME [facility]-TOBACCO [facility]ER [facility] Sep 19, 2009 11:13 AM LIF[facility]BACCO [facility] Advance Directives: All historical and current Section Date Range: From patient's date of to the date document was created. This section includes ALL of a patient's completed or amended [place] Advance and Rescinded Directives. The entries below indicate that a directive exists for the patient, but an actual copy is not included with this document. The data comes from all [place] facilities. Date Advance Directives Provider Source Mar 22, 2018 ADVANCE DIRECTIVE JASWANT DICKINSON [facility] Radiology Reports: +/- 30 days of [...] the Encounter. The data comes from all [place] treatment facilities. Date/Time Radiology Report Provider Source Jul 27, 2024 02:52 PM FLUOROSCOPIC [place] NCE OF NEEDLE/SPINE: COLBY HARTLEY [id number] -[id number] M Exm Date: JUL 27, 2024@14:52 Req Phys: YAIR FALCON [facility] Loc: CWM/NO/MED REHAB/SPINE INJ (Re Img Loc: [facility]BUILD[facility] 1 Service: [place] [address] (Case [id number] COMPLETE) FLUOROSCOPIC GUIDANCE OF NEEDLE/S(RAD Detailed) CPT:80741 Reason for Study: transforaminal epidural steroid injection Clinical History: Report Status: Verified Date Reported: JUL 27, 2024 Date Verified: JUL 27, 2024 American Indian Studies Professor E-Sig:/CALLY/GREG OLIVIER JR Report: Study: Pain injection of [...] Primary Interpreting Staff: GREG OLIVIER JR, Radiologist (American Indian Studies Professor) /GREG GAITAN JR [facility] Encounter Notes: All associated encounter notes This section contains the clinical notes associated to the Encounter. Date/Time Encounter Note(s) Provider Source Jul 06, 2024 12:18 PM LETTERS: LOCAL TITLE: PATIENT LETTER (B) STANDARD TITLE: LETTERS DATE OF NOTE: JUL 06, 2024@12:18 ENTRY DATE: JUL 06, 2024@12:18:10 AUTHOR: ROBERTO AVILA EXP COSIGNER: URGENCY: STATUS: COMPLETED JUL 06, 2024 [address]ARTLEY [address] [place] [id number] Dear COLBY HARTLEY II Thank you for choosing the [facility] ([place]) [facility] as your primary choice for health care. As a partner in your health care, we are contacting you in writing since we have been unsuccessful in our attempts to reach you to date. We want to assure you we are doing everything possible to schedule Veterans for their [place] medical care appointments. Our records indicate you are due for an appointment in MED REHAB SPINE . If you would like to be seen, please contact [place] Call Center at ext. [phone] to schedule an appointment. Thank you for your service to our nation, and we look forward to hearing from you soon. Sincerely, [facility] [address] [facility] [address] [place] [address] [place] [address] [facility] [address] [facility] [address] [place] [address] [place] [address] ext. [phone] [facility] [address] [facility] [address] [place] [address] [place] [address] ext. [phone] ROBERTO AVILA [place] [facility] Jul 06, 2024 12:17 PM ADMINISTRATIVE NOT E: LOCAL TITLE: ADMINISTRATIVE RECALL NOTE STANDARD TITLE: ADMINISTRATIVE NOTE DATE OF NOTE: JUL 06, 2024@12:17 ENTRY DATE: JUL 06, 2024@12:17:38 AUTHOR: ROBERTO AVILA EXP COSIGNER: URGENCY: STATUS: COMPLETED RTC orders: Unable to contact patient: Attempts to contact: 1st attempt: Left voicemail 2nd attempt: Letter mailedDisposition onDec 3rd attempt: 4th attempt: /cally/ ROBERTO AVILA ADVANCED DIVISION MERCHANDISE MANAGER Signed: 07/06/2024 12:17 ROBERTO AVILA CNTRL WSTRN [facility]
--- OUTSIDE RECORDS SUMMARY | 2024-08-18 10:03 | XMS_ITS | Encounter Summary ---
Author Name [facility] [place] Organization [place] Address [address] [place] [address] Care Team Providers Care Shank Maker Name Role Phone EHSAN OVALLES Primary [...] PART A December 08, 2013 PART A [id number] KONRADDENTONMartin DAMICOBRIGID Lantigua PATIENT MEDICARE (WNR) MEDICARE (M) PART A December 08, 2013 PART A [id number] 62A [phone] BRIGID RAMOS PATIENT Selected Encounter This section includes the information on record at [place] for the Encounter. Date/Time Encounter Type Encounter Description Reason Pro vider Source Jul 05, 2024 09:38 AM Outpatient Encounter PM&RS PHYSICIAN IHE Encounter [...] 02:30 PM AMBULATORY - REHAB MEDICIN E [place] [facility] Aug 30, 2024 11:00 AM [facility] Sep 14, 2024 01:00 PM [facility] Active, Pending, and Scheduled Orders This section includes a listing of several types of active, pending, and scheduled orders, including clinic medications orders, diagnostic test orders, procedure orders and consult orders; where the start date of the order is 45 days before the date of the Encounter or 45 days after the date of theEncounter. The data comes from all [place] treatment facilities. Test Date/Time Test Type Test Details Facility Name Jul 05, 2024 09:45 AM Consult Order COMMUNITY CARE-ACUPUNCTURE Cons Cloth [facility] Social History: Smoking Status (Most current) [...] 12, 2023 10:46 AM VA-TOBACCO NEVER USED [facility] Tobacco Use History This section includes a history of the smoking, or tobacco-related health factors, that were collected on or before the date of the Encounter. The data comes from the [place] facility where the Encounter took place. Date/Time Smoking Status/Tobacco Use Comment F acility Oct 20, 2015 10:30 AM LIFETIME [facility]BACCO [facility]ER [facility] Sep 19, 2009 11:13 AM LIFETIME NON-TOBACCO [facility]ER [facility] Advance Directives: All historical and current [...] 22, 2018 ADVANCE DIRECTIVE JASWANT DICKINSON [facility] Radiology Reports: +/- 30 days of the [...] FLUOROSCOPIC [place] NCE OF NEEDLE/SPINE: COLBY HARTLEY [id number] -1970 M Exm Date: JUL 27, 2024@14:52 Req Phys: YAIR FALCON [facility] Loc: CWM/NO/MED REHAB/SPINE INJ (Re Img Loc: [facility] 1 Service: [place] [address] (Case [id number] COMPLETE) FLUOROSCOPIC GUIDANCE OF NEEDLE/S(RAD Detailed) CPT:15752 Reason for Study: transforaminal epidural steroid injection Clinical History: Report Status: Verified Date Reported: JUL 27, 2024 Date Verified: JUL 27, 2024 Manager Credit E-Sig:/CALLY/GREG OLIVIER JR Report: Study: Pain injection [...] Primary Interpreting Staff: GREG OLIVIER JR, Radiologist (Manager Credit) /GREG GAITAN JR [facility] Encounter Notes: All associated encounter notes This section contains the clinical notes associated to the Encounter. Date/Time Encounter Note(s) Provider Source Jul 05, 2024 09:39 AM TELEPHONE ENCOUNTE R NOTE: LOCAL TITLE: TELEPHONE NOTE/PM&R STANDARD TITLE: TELEPHONE ENCOUNTER NOTE DATE OF NOTE: JUL 05, 2024@09:39 ENTRY DATE: JUL 05, 2024@09:40:13 AUTHOR: HUMAIRA PITTS EXP COSIGNER: URGENCY: STATUS: COMPLETED I spoke with today via telephone. He seems to be doing better after arthroscopy of the left knee. Branch of the meniscus was preserved. Did have plica bands that were interfering with movement. He still is somewhat disappointed by the range of motion but does feel that it will be getting better. His back pain has been increasing. He responded nicely to the previous epidural injections in October 2023. He has significant improvement but now back pain seems to be increasing along with pain. Distally into the right leg. In terms of his back pain he was seen significant improvement with the combination of director career services and acupuncture but was exceeding the allotted number of visits. He states that he does not have the finances to pay out-of- pocket. [facility] in [facility] with acupuncture out near his home and glove and he did decline the director career services here he found that it was not as helpful. He is not going through active physical therapy currently but does have the exercises have been provided in the past. These would be more challenging due to the recovery from his knee surgery last month. Will start with acupuncture and put in community care consultation at this point. If he is not seeing adequate improvement after epidural injection may require further physical therapy. /cally/ HUMAIRA IPTTS [facility] Signed: 07/05/2024 09:43 HUMAIRA PITTS [place] [facility]
--- OUTSIDE RECORDS SUMMARY | 2024-08-18 10:04 | XMS_ITS | Encounter Summary ---
Author Name Department [place] Organization [place] Address [address] [place] [address] Care Team Providers Care Implementation Manager Name Role Phone EHSAN OVALLES Primary [...] PART A December 08, 2013 PART A [id number] 62A [phone] GARRICK DAMICOBRIGID Lantigua PATIENT MEDICARE (WNR) MEDICARE (M) PART A December 08, 2013 PART A [id number] 62A KONRADTASHIACRISTY BRIGID DAMICO PATIENT Selected Encounter This section includes the information on record at [place] for the Encounter. Date/Time Encounter Type Encounter Description Reason Provider Source Sep 08, 2023 10:34 AM Outpatient Encounter TELEPHONE PRIMARY CARE ICD-10-CM M54.50 Low back pain, unspecified ALESHIA TIPTON Martin Encounter Template Text not used by [place] Assessments - Encounter Diagnoses This section includes the primary and secondary diagnoses documented for the Encounter. Date/Time Primary/Secondary Diagnosis Diagnosis Name Provider Source Sep 08, 2023 10:34 AM PRIMARY Low back pain, unspecified JESSE TIPTON [facility] Plan of Treatment: Future Appointments (+ 6 months) and Future Tests (+/- 45 days) The Plan of Treatment section includes future care activities for the patient from all [place] [facility]. This section includes future appointments and future orders which are active, pending or scheduled. Future Appointments This section includes appointments that were scheduled to occur 6 months from the date of the Encounter, up to a maximum of 20 appointments. The data comes from all [place] treatment facilities. Appointment Date/Time Appointment Type Appointme nt Facility Name Sep 16, 2023 09:00 AM AMBULATORY - MEDICINE [place] [facility] [place] [facility] Sep 17, 2023 09:30 AM AMBULATORY - REHAB MEDICIN E [facility] [place] [facility] Sep 17, 2023 10:26 AM AMBULATORY - NONE [facility] [place] [facility] Sep 21, 2023 09:15 AM AMBULATORY - MEDICINE [facility] [place] [facility] Sep 29, 2023 10:00 AM AMBULATORY - MEDICINE [facility] [place] [facility] Sep 30, 2023 10:00 AM AMBULATORY - REHAB MEDICIN E [facility] [place] [facility] Oct 21, 2023 11:45 AM AMBULATORY - MEDICINE [facility] [place] [facility] Nov 05, 2023 01:00 PM AMBULATORY - REHAB MEDICIN E [facility] [place] [facility] Nov 11, 2023 10:00 AM AMBULATORY - MEDICINE [facility] [place] [facility] Nov 24, 2023 09:30 AM AMBULATORY - MEDICINE [facility] [place] [facility] Nov 26, 2023 10:30 AM AMBULATORY - REHAB MEDICIN E [place] Dec 01, 2023 09:45 AM AMBULATORY - MEDICINE [facility] [place] [facility] Dec 01, 2023 03:30 PM AMBULATORY - REHAB MEDICIN E [place] Dec 08, 2023 09:00 AM AMBULATORY - REHAB MEDICIN E [place] January 05, 2024 01:00 PM AMBULATORY - REHAB MEDICIN E [facility] [place] [facility] Jan 15, 2024 09:30 AM AMBULATORY - REHAB MEDICIN E [place] Feb 23, 2024 09:00 AM AMBULATORY - MEDICINE [facility] [place] [facility] Feb 25, 2024 01:00 PM AMBULATORY - REHAB MEDICIN E [facility] Lab Results: +/- 30 days [...] Result - Unit Interpretation Reference Range Comment Aug 13, 2023 10:39 AM [facility] URIC ACID Specimen Type: SERUM No comment entered. Ordering Provider: JESSE TIPTON Report Released Date/Time: Jul 28, 2023 01:48 PM Reporting Lab: [address] [address] Performing Lab: [address] [address] URIC ACID 5.8 mg/dL 3.5-7.2 Social History: Smoking Status (Most current) and [...] 12, 2023 10:46 AM VA-TOBACCO NEVER USED [facility] Tobacco Use History This section includes a history of the smoking, or tobacco-related health factors, that were collected on or before the date of the Encounter. The data comes from the [place] facility where the Encounter took place. Date/Time Smoking Status/Tobacco Use Comment F acility Oct 20, 2015 10:30 AM LIFETIME NON-TOBACCO USER [facility] Sep 19, 2009 11:13 AM LIFETIME NON-TOBACCO USER [facility] Advance Directives: All historical and [...] Mar 22, 2018 ADVANCE DIRECTIVE JASWANT DICKINSON [facility] Radiology Reports: +/- 30 days of [...] the Encounter. The data comes from all [place] treatment facilities. Date/Time Radiology Report Provider Source Sep 30, 2023 10:26 AM FLUOROSCOPIC [place] NCE OF NEEDLE/SPINE: COLBY HARTLEY [id number] -1970 M Exm Date: SEP 30, 2023@10:26 Req Phys: YAIR FALCON [facility] Loc: CWM/NO/MED REHAB/SPINE INJ (Re Img Loc: [facility] 1 Service: Unknown (Case [id number] COMPLETE) FLUOROSCOPIC GUIDANCE OF NEEDLE/S(RAD Detailed) CPT:52139 Reason for Study: transforaminal epidural steroid injection Clinical History: Report Status: Verified Date Reported: SEP 30, 2023 Date Verified: SEP 30, 2023 Executive Associate E-Sig:/DHEERAJ/GREG OLIVIER JR Report: Study: Pain injection [...] Primary Interpreting Staff: GREG OLIVIER JR, Radiologist (Executive Associate) /GREG GAITAN JR [facility] Sep 17, 2023 10:53 AM SPINE LUMBOSACRAL MIN 4 VIEWS: COLBY HARTLEY [id number] -1970 M Exm Date: SEP 17, 2023@10:53 Req Phys: HUMAIRA PITTS Bety Loc: [facility]/NO/MEDICAL REHAB B (Req'g Img Loc: [facility] 1 Service: Unknown (Case [id number] COMPLETE) SPINE LUMBOSACRAL MIN 4 VIEWS (RAD Detailed) CPT:69060 Reason for Study: back pain with L3 left radiculopathy Clinical History: Report Status: Verified Date Reported: SEP 17, 2023 Date Verified: SEP 17, 2023 Executive Associate E-Sig:/ES/GREG OLIVIER JR Report: Study: AP and lateral views of the lumbar spine. COMPARISON: Lumbar spine radiographs from March 10, 2014. FINDINGS: There are 5 lumbar type vertebral bodies identified. The lumbar spine intervertebral disc spaces are normal. The lumbar spine alignment is normal. Mild stable anterior wedging of the T11 and T12 vertebral bodies. The lumbar vertebral body heights are normal. Mild lower lumbar spine facet joint hypertrophic changes again seen. The bony mineralization is normal. The sacroiliac joints are normal for age. The paraspinal soft tissues appear normal. Impression: No acute bony abnormality. Primary Diagnostic Code: No immediate attention required Primary Interpreting Staff: GREG OLIVIER JR, Radiologist (Executive Associate) /GREG GAITAN JR [place] [facility] [facility] Sep 17, 2023 10:35 AM HIP 2-3 VIEWS(LEFT ) WITH OR WITHOUT PELVIS: COLBY HARTLEY [id number] -[address] [facility] Date: SEP 17, 2023@10:35 Req Phys: HUMAIRA PITTS Adarsh Albert Loc: [facility]/NO/MEDICAL REHAB B (Req'g Img Loc: [facility] 1 Service: Unknown (Case [id number] COMPLETE) HIP 2-3 VIEWS(LEFT) WITH OR WITHO(RAD Detailed) CPT:97157 CPT Modifiers : LT LEFT SIDE Reason for Study: pain left hip referred to knee Clinical History: Report Status: Verified Date Reported: SEP 17, 2023 Date Verified: SEP 17, 2023 Executive Associate E-Sig:/ES/GREG OLIVIER JR Report: Study: AP view of the pelvis with frogleg lateral view of the left hip. Comparison: None. Findings: The bony mineralization is normal. The pelvic bones appear normal. The sacrum and sacroiliac joints appear normal. The visualized lumbar spine appears normal. The hip joints are normal and symmetric. The proximal femurs appear normal. No acute bony abnormality is identified. Impression: No focal abnormality. Primary Diagnostic Code: No immediate attention required Primary Interpreting Staff: GREG OLIVIER JR, Radiologist (Executive Associate) /GREG GAITAN JR [facility] Encounter Notes: All associated encounter notes This section contains the clinical notes associated to the Encounter. Date/Time Encounter Note(s) Provider Source Sep 08, 2023 10:49 AM ACCOUNTING OF DISC LOSURES NOTE: LOCAL TITLE: STATE PRESCRIPTION DRUG MONITORING PROGRAM STANDARD TITLE: ACCOUNTING OF DISCLOSURES NOTE DATE OF NOTE: SEP 08, 2023@10:49:23 ENTRY DATE: SEP 08, 2023@10:49:23 AUTHOR: JESSE TIPTON EXP COSIGNER: URGENCY: STATUS: COMPLETED This PDMP query was submitted by Jesse Tipton MD. The clinical justification for this PDMP query is to review controlled substances prescribed outside of the [place], and any additional information that may become available, as an important component of standard clinical care, and in accordance with [facility] policy. Patient information was shared with the PDMP Appriss Printer. No prescription(s) for controlled substances outside the [place] were found in the last 90 days. /dheeraj/ Jesse Tipton MD STAFF PHYSICIAN Signed: 09/08/2023 10:50 JESSE TIPTON [facility] Sep 08, 2023 10:34 AM [facility]: LOCAL TITLE: PAIN CLINIC NOTE STANDARD TITLE: PAIN MEDICINE OUTPATIENT NOTE DATE OF NOTE: SEP 08, 2023@10:34 ENTRY DATE: SEP 08, 2023@10:35:01 AUTHOR: JESSE TIPTON EXP COSIGNER: URGENCY: STATUS: COMPLETED Phone visit with patient in response to secure messages. 15 minutes. He notes that chiropractic is starting to help. He is concerned about delays in community care for acupunture and chiropractic. I reminded him of upcoming physiatry eval; he plans to attend. He notes that he had to cancel [employer] to attend a . Has been losing weight. He is down to 310#. He hopes to lose more weight when pain improves. Discussed his rash from [place]. After discussion he agrees to trial of Belbuca, but he does mention concern about putting the drug inside his body. We discussed that the rash is most likely to the patch adhesive, not the medication. 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 f/u as planned by [facility] next week. /dheeraj/ Jesse Tipton MD STAFF PHYSICIAN Signed: 09/08/2023 10:49 JESSE TIPTON [place] [facility]
--- OUTSIDE RECORDS SUMMARY | 2024-08-18 10:04 | XMS_ITS ---
Author Name Department of [place] Organization [place] Address [address] [place] [address] Care Team Providers Care Route Cdl Driver Name Role Phone EHSAN OVALLES Primary Care [...] PART A December 08, 2013 PART A [id number] BRIGID RAMOS PATIENT MEDICARE (WNR) MEDICARE (M) PART A December 08, 2013 PART A [id number] 62A [phone] BRIGID RAMOS PATIENT Selected Encounter This section includes the information on record at [place] for the Encounter. Date/Time Encounter Type Encounter Description Reason Pro vider Source Aug 26, 2023 12:00 PM Outpatient Encounter COMMUNITY CARE CONSULT IHE Encounter Template Text not used by [place] Plan of Treatment: Future Appointments (+ 6 [...] 20 appointments. The data comes from all [place] treatment facilities. Appointment Date/Time Appointment Type Appointme nt Facility Name Sep 16, 2023 09:00 AM AMBULATORY - MEDICINE [place] [facility] [place] [place] [facility] Sep 17, 2023 09:30 AM AMBULATORY - REHAB MEDICIN E [facility] [place] [facility] Sep 17, 2023 10:26 AM AMBULATORY - NONE [facility] [place] [facility] Sep 21, 2023 09:15 AM AMBULATORY - MEDICINE [facility] [place] [facility] Sep 29, 2023 10:00 AM AMBULATORY - MEDICINE [facility] [place] [place] [facility] Sep 30, 2023 10:00 AM AMBULATORY - REHAB MEDICIN E [facility] [place] [facility] Oct 21, 2023 11:45 AM AMBULATORY - MEDICINE [facility] [place] [facility] Nov 05, 2023 01:00 PM AMBULATORY - REHAB MEDICIN E [facility] [place] [facility] Nov 11, 2023 10:00 AM AMBULATORY - MEDICINE [facility] [place] [facility] Nov 24, 2023 09:30 AM AMBULATORY - MEDICINE [facility] [place] [place] [facility] Nov 26, 2023 10:30 AM AMBULATORY - REHAB MEDICIN E [place] Dec 01, 2023 09:45 AM AMBULATORY - MEDICINE [facility] [place] [facility] Dec 01, 2023 03:30 PM AMBULATORY - REHAB MEDICIN E [place] Dec 08, 2023 09:00 AM AMBULATORY - REHAB MEDICIN E [place] January 05, 2024 01:00 PM AMBULATORY - REHAB MEDICIN E [facility] [place] [facility] Jan 15, 2024 09:30 AM AMBULATORY - REHAB MEDICIN E [place] Feb 23, 2024 09:00 AM AMBULATORY - MEDICINE [place] C [place] [facility] Lab Results: +/- 30 days of the encounter This section includes the Chemistry and Hematology Lab Results on record with [place] for the patient. Radiology Reports and Pathology Reports are provided separately, in subsequent sections. Lab Results This section contains the Chemistry/Hematology Results that were resulted 30 days before or 30 daysafter the date of the Encounter. Date/Time Source Result Type Result - Unit Interpretation Reference Range Comment Aug 13, 2023 10:39 AM [facility] URIC ACID Specimen Type: SERUM No comment entered. Ordering Provider: JESSE TIPTON Report Released Date/Time: Jul 28, 2023 01:48 PM Reporting Lab: [facility] [address] [address] Performing Lab: [facility] [address] [address] URIC ACID 5.8 mg/dL 3.5-7.2 Social History: Smoking Status (Most current) and Tobacco Use (All prior to encounter date) This section includes the most current, and the historical, smoking and tobacco- related health factors from the [place] facility where the Encounter took place. Current Smoking Status This section includes the most current smoking, or tobacco-related health factor, from the [place] facility where the Encounter took place. Date/Time Current Smoking Status Comment Jose cdy May 12, 2023 10:46 AM [place]-TOBACCO NEVER USED [facility] Tobacco Use History This section includes a history of the smoking, or tobacco-related health factors, that were collected on or before the date of the Encounter. The data comes from the [place] facility where the Encounter took place. Date/Time Smoking Status/Tobacco Use Comment F acility Oct 20, 2015 10:30 AM LIFETIME NON-TOBACCO USER [facility] Sep 19, 2009 11:13 AM LIFETIME NON-TOBACCO USER [facility] Advance Directives: All historical and current Section Date Range: From patient's date of to the date document was created. This section includes ALL of a patient's completed or amended [place] Advance and Rescinded Directives. The entries below indicate that a directive exists for the patient, but an actual copy is not included with this document. The data comes from all [place] facilities. Date Advance Directives Provider Source Mar 22, 2018 ADVANCE DIRECTIVE JASWANT DICKINSON [facility] Radiology Reports: +/- 30 days of the [...] the Encounter. The data comes from all [place] treatment facilities. Date/Time Radiology Report Provider Source Sep 17, 2023 10:53 AM SPINE LUMBOSACRAL MIN 4 VIEWS: COLBY HARTLEY [id number] -1970 M Exm Date: SEP 17, 2023@10:53 Req Phys: HUMAIRA PITTS Loc: [facility]/NO/MEDICAL REHAB B (Req'g Img Loc: [facility]/BUILDING 1 Service: Unknown (Case [id number] COMPLETE) SPINE LUMBOSACRAL MIN 4 VIEWS (RAD Detailed) CPT:25626 Reason for Study: back pain with L3 left radiculopathy Clinical History: Report Status: Verified Date Reported: SEP 17, 2023 Date Verified: SEP 17, 2023 Application Services Manager E-Sig:/ES/GREG OLIVIER JR Report: Study: AP and [...] Primary Interpreting Staff: GREG OLIVIER JR, Radiologist (Application Services Manager) /GREG GAITAN JR [place] [facility] [place] [facility] Sep 17, 2023 10:35 AM HIP 2-3 VIEWS(LEFT ) WITH OR WITHOUT PELVIS: COLBY HARTLEY [id number] -1970 M Exm Date: SEP 17, 2023@10:35 Req Phys: HUMAIRA PITTS Loc: [facility]/NO/MEDICAL REHAB B (Req'g Img Loc: [facility]/BUILDING 1 Service: Unknown (Case 255 COMPLETE) HIP 2-3 VIEWS(LEFT) WITH OR WITHO(RAD Detailed) CPT:98146 CPT Modifiers : LT LEFT SIDE Reason for Study: pain left hip referred to knee Clinical History: Report Status: Verified Date Reported: SEP 17, 2023 Date Verified: SEP 17, 2023 Application Services Manager E-Sig:/ES/GREG OLIVIER JR Report: Study: AP view [...] Primary Interpreting Staff: GREG OLIVIER JR, Radiologist (Application Services Manager) /GREG GAITAN JR [facility] Encounter Notes: All associated encounter notes This section contains the clinical notes associated to the Encounter. Date/Time Encounter Note(s) Provider Source Aug 26, 2023 12:00 PM NONVA CONSULT: LOCAL TITLE: COMMUNITY CARE-CONSULT RESULT NOTE STANDARD TITLE: NONVA CONSULT DATE OF NOTE: AUG 26, 2023@12:00 ENTRY DATE: SEP 14, 2023@12:40:50 AUTHOR: REGINALDO WATTS COSIGNER: URGENCY: STATUS: COMPLETED VistA Imaging - Scanned Document SCANNED DOCUMENT SIGNATURE NOT REQUIRED Electronically Filed: 09/14/2023 by: REGINALDO VILLATORO [facility]
--- OUTSIDE RECORDS SUMMARY | 2024-08-18 10:04 | XMS_ITS ---
Author Name [facility] [place] Organization [facility] [place] Address [address] [place] [address] Care Team Providers Care Braiding Operator Name Role Phone EHSAN OVALLES Primary [...] PART A December 08, 2013 PART A [id number] [phone] KONRADDENTONMartin DAMICOBRIGID Latnigua PATIENT MEDICARE (WNR) MEDICARE (M) PART A December 08, 2013 PART A [id number] [phone] KONRADBRIGID KRAMER PATIENT Selected Encounter This section includes the information on record at [place] for the Encounter. Date/Time Encounter Type Encounter Description Reason Provider Source Sep 08, 2023 10:19 AM Outpatient Encounter EVENT (HISTORICAL) BENJA TIPTON Martin Encounter Template Text not used by [place] [...] - MEDICINE [facility] [place] [facility] Sep 17, 2023 09:30 AM AMBULATORY - REHAB MEDICIN E [facility] [place] [facility] Sep 17, 2023 10:26 AM AMBULATORY - NONE [facility] [place] [facility] Sep 21, 2023 09:15 AM AMBULATORY - MEDICINE [facility] [place] [facility] Sep 29, 2023 10:00 AM AMBULATORY - MEDICINE [facility] [place] [facility] Sep 30, 2023 10:00 AM AMBULATORY - REHAB MEDICIN E [facility] [place] [facility] Oct 21, 2023 11:45 AM AMBULATORY - MEDICINE [facility] [place] [facility] Nov 05, 2023 01:00 PM AMBULATORY - REHAB MEDICIN E [facility] [place] [facility] Nov 11, 2023 10:00 AM AMBULATORY - MEDICINE [facility] [place] [facility] Nov 24, 2023 09:30 AM AMBULATORY - MEDICINE [facility] [place] [facility] Nov 26, 2023 10:30 AM AMBULATORY - REHAB MEDICIN E [place] Dec 01, 2023 09:45 AM AMBULATORY - MEDICINE [facility] [place] [facility] Dec 01, 2023 03:30 PM AMBULATORY - REHAB MEDICIN E [place] Dec 08, 2023 09:00 AM AMBULATORY - REHAB MEDICIN E [place] January 05, 2024 01:00 PM AMBULATORY - REHAB MEDICIN E [facility] [place] [facility] Jan 15, 2024 09:30 AM AMBULATORY - REHAB MEDICIN E [place] Feb 23, 2024 09:00 AM AMBULATORY - MEDICINE [facility] [place] [facility] Feb 25, 2024 01:00 PM AMBULATORY - REHAB MEDICIN E [facility] [place] [facility] Lab Results: +/- 30 [...] Range Comment Aug 13, 2023 10:39 AM [facility] URIC ACID Specimen Type: SERUM No comment entered. Ordering Provider: BENJA TIPTON Report Released Date/Time: Jul 28, 2023 01:48 PM Reporting Lab: [facility] [address] [address] Performing Lab: [facility] [address] [address] [address] URIC ACID 5.8 mg/dL 3.5-7.2 Social History: [...] Jose ity May 12, 2023 10:46 AM [place]-TOBACCO NEVER USED [facility] Tobacco Use History This section includes a history of the smoking, or tobacco-related health factors, that were collected on or before the date of the Encounter. The data comes from the [place] facility where the Encounter took place. Date/Time Smoking Status/Tobacco Use Comment F acility Oct 20, 2015 10:30 AM LIFETIME NON-TOBACCO USER [facility] Sep 19, 2009 11:13 AM LIFETIME NON-TOBACCO USER [facility] Advance Directives: All historical and current [...] Mar 22, 2018 ADVANCE DIRECTIVE JASWANT DICKINSON [facility] Radiology Reports: +/- 30 days of the [...] FLUOROSCOPIC [place] NCE OF NEEDLE/SPINE: COLBY HARTLEY [id number] -1970 M Exm Date: SEP 30, 2023@10:26 Req Phys: YAIR FALCON Loc: CWM/NO/MED REHAB/SPINE INJ (Re Img Loc: [facility]/BUILD[facility] 1 Service: Unknown (Case [id number] COMPLETE) FLUOROSCOPIC GUIDANCE OF NEEDLE/S(RAD Detailed) CPT:81595 Reason for Study: transforaminal epidural steroid injection Clinical History: Report Status: Verified Date Reported: SEP 30, 2023 Date Verified: SEP 30, 2023 Restoration Officer E-Sig:/ES/GREG OLIVIER JR Report: Study: Pain injection [...] Primary Interpreting Staff: GREG OLIVIER JR, Radiologist (Restoration Officer) /GREG GAITAN JR [facility] Sep 17, 2023 10:53 AM SPINE LUMBOSACRAL MIN 4 VIEWS: COLBY HARTLEY [id number] -1970 M Exm Date: SEP 17, 2023@10:53 Req Phys: HUMAIRA PITTS Loc: CWM/NO/MEDICAL REHAB B (Req'g Img Loc: [facility]/BUILDING 1 Service: Unknown (Case [id number] COMPLETE) SPINE LUMBOSACRAL MIN 4 VIEWS (RAD Detailed) CPT:17849 Reason for Study: back pain with L3 left radiculopathy Clinical History: Report Status: Verified Date Reported: SEP 17, 2023 Date Verified: SEP 17, 2023 Restoration Officer E-Sig:/ES/GREG OLIVIER JR Report: Study: AP and [...] Primary Interpreting Staff: GREG OLIVIER JR, Radiologist (Restoration Officer) /GREG GAITAN JR [facility] Sep 17, 2023 10:35 AM HIP 2-3 VIEWS(LEFT ) WITH OR WITHOUT PELVIS: COLBY HARTLEY [id number] -1970 M [facility] Date: SEP 17, 2023@10:35 Req Phys: HUMAIRA PITTS Loc: CWM/NO/MEDICAL REHAB B (Req'g Img Loc: [facility] 1 Service: Unknown (Case [id number] COMPLETE) HIP 2-3 VIEWS(LEFT) WITH OR WITHO(RAD Detailed) CPT:15697 CPT Modifiers : LT LEFT SIDE Reason for Study: pain left hip referred to knee Clinical History: Report Status: Verified Date Reported: SEP 17, 2023 Date Verified: SEP 17, 2023 [employer] - Smartphone RFID E-Sig:/ES/GREG OLIVIER JR Report: Study: AP view [...] Primary Interpreting Staff: GREG OLIVIER JR, Radiologist (Restoration Officer) /GREG GAITAN JR [facility] Encounter Notes: All associated encounter notes This section contains the clinical notes associated to the Encounter. 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 They were received yesterday, and the referral was approved today. Benja Tipton MD [facility] /es/ Benja Tipton MD STAFF PHYSICIAN Signed: 09/08/2023 10:19 [facility] TIPTON [facility]
--- OUTSIDE RECORDS SUMMARY | 2024-08-18 10:04 | XMS_ITS ---
Author Name [facility] [place] [facility] [place] Organization [facility] [place] Address [address] [place] [address] Care Team Providers Care Fur Farmer Name Role Phone EHSAN OVALLES Primary Care [...] PART A December 08, 2013 PART A [id number] KARENMartin BRIGID DAMICO PATIENT MEDICARE (WNR) MEDICARE (M) PART A December 08, 2013 PART A [id number] BRIGID RAMOS PATIENT Selected Encounter This section includes the information on record at [place] for the Encounter. Date/Time Encounter Type Encounter Description Reason Pro vider Source Aug 21, 2023 02:23 PM Outpatient Encounter PAIN CLINIC [facility] Encounter Template Text not used by [place] Plan of Treatment: Future Appointments (+ 6 months) and Future Tests (+/- 45 days) The Plan of Treatment section includes future care activities for the patient from all [place] treatmentfacilities. This section includes future appointments and [...] - MEDICINE [facility] [place] [facility] Sep 17, 2023 09:30 AM AMBULATORY - REHAB MEDICIN E [facility] [place] [facility] Sep 17, 2023 10:26 AM AMBULATORY - NONE [facility] [place] [facility] Sep 21, 2023 09:15 AM AMBULATORY - MEDICINE [facility] [place] [facility] Sep 29, 2023 10:00 AM AMBULATORY - MEDICINE [facility] [place] [facility] Sep 30, 2023 10:00 AM AMBULATORY - REHAB MEDICIN E [facility] [place] [facility] Oct 21, 2023 11:45 AM AMBULATORY - MEDICINE [facility] [place] [facility] Nov 05, 2023 01:00 PM AMBULATORY - REHAB MEDICIN E [facility] [place] [facility] Nov 11, 2023 10:00 AM AMBULATORY - MEDICINE [facility] [place] [facility] Nov 24, 2023 09:30 AM AMBULATORY - MEDICINE [facility] [place] [facility] Nov 26, 2023 10:30 AM AMBULATORY - REHAB MEDICIN E [place] Dec 01, 2023 09:45 AM AMBULATORY - MEDICINE [place] [facility] [facility] Dec 01, 2023 03:30 PM AMBULATORY - REHAB MEDICIN E [place] Dec 08, 2023 09:00 AM AMBULATORY - REHAB MEDICIN E [place] January 05, 2024 01:00 PM AMBULATORY - REHAB MEDICIN E [facility] [place] [facility] Jan 15, 2024 09:30 AM AMBULATORY - REHAB MEDICIN E [place] Lab Results: +/- 30 days of the [...] Range Comment Aug 13, 2023 10:39 AM [facility] [place] [facility] URIC ACID Specimen Type: SERUM No comment entered. Ordering Provider: JESSE TIPTON Report Released Date/Time: Jul 28, 2023 01:48 PM Reporting Lab: [facility] [address] [address] Performing Lab: [facility] [address] [facility] [address] URIC ACID 5.8 mg/dL 3.5-7.2 Social History: [...] 12, 2023 10:46 AM [place]-TOBACCO NEVER USED [facility] Tobacco Use History This section includes a history of the smoking, or tobacco-related health factors, that were collected on or before the date of the Encounter. The data comes from the [place] facility where the Encounter took place. Date/Time Smoking Status/Tobacco Use Comment F acility Oct 20, 2015 10:30 AM LIFETIME NON-TOBACCO USER [facility] Sep 19, 2009 11:13 AM LIFETIME NON-TOBACCO USER [facility] Advance Directives: All historical and current [...] Mar 22, 2018 ADVANCE DIRECTIVE JASWANT DICKINSON [facility] Radiology Reports: +/- 30 days of [...] SPINE LUMBOSACRAL MIN 4 VIEWS: COLBY HARTLEY [id number] -1970 M Exm Date: SEP 17, 2023@10:53 Req Phys: PITTSHUMAIRA Adarsh Albert Loc: CWM/NO/MEDICAL REHAB B (Req'g Img Loc: [facility]/BUILD[facility] 1 Service: Unknown (Case [id number] COMPLETE) SPINE LUMBOSACRAL MIN 4 VIEWS (RAD Detailed) CPT:93571 Reason for Study: back pain with L3 left radiculopathy Clinical History: Report Status: Verified Date Reported: SEP 17, 2023 Date Verified: SEP 17, 2023 Solar Project Manager E-Sig:/ES/GREG OLIVIER JR Report: Study: AP [...] Primary Interpreting Staff: GREG OLIVIER JR, Radiologist (Solar Project Manager) /GREG GAITAN JR [place] [facility] [place] [facility] Sep 17, 2023 10:35 AM HIP 2-3 VIEWS(LEFT ) WITH OR WITHOUT PELVIS: COLBY HARTLEY [id number] -1970 M Exm Date: SEP 17, 2023@10:35 Req Phys: PITTSHUMAIRA Adarsh Albert Loc: CWM/NO/MEDICAL REHAB B (Req'g Img Loc: [facility]/BUILD[facility] 1 Service: Unknown (Case [id number] COMPLETE) HIP 2-3 VIEWS(LEFT) WITH OR WITHO(RAD Detailed) CPT:57537 CPT Modifiers : LT LEFT SIDE Reason for Study: pain left hip referred to knee Clinical History: Report Status: Verified Date Reported: SEP 17, 2023 Date Verified: SEP 17, 2023 Solar Project Manager E-Sig:/ES/GREG OLIVIER JR Report: Study: AP [...] Primary Interpreting Staff: GREG OLIVIER JR, Radiologist (Solar Project Manager) /GREG GAITAN JR [facility] Encounter Notes: All associated encounter notes This section contains the clinical notes associated to the Encounter. Date/Time Encounter Note(s) Provider Source Aug 21, 2023 02:23 PM TELEPHONE ENCOUNTE R NOTE: LOCAL TITLE: TELEPHONE NOTE/SPECIALTY CLINIC STANDARD TITLE: TELEPHONE ENCOUNTER NOTE DATE OF NOTE: AUG 21, 2023@14:23 ENTRY DATE: AUG 21, 2023@14:23:30 AUTHOR: STALIN VIGIL EXP COSIGNER: URGENCY: STATUS: COMPLETED Called and spoke with pt to remind them that they have a VVC appt with the Pain clinic on 08/25/2023 at 1000am. /dheeraj/ STALIN VIGIL ADVANCED PAYING TELLER Signed: 08/21/2023 14:24 STALIN VIGIL [facility]
--- OUTSIDE RECORDS SUMMARY | 2024-08-18 10:04 | XMS_ITS | Encounter Summary ---
Author Name Department [facility] [place] Address [address] [place] [address] Care Team Providers Care Tobacco Stripper Name Role Phone EHSAN OVALLES Primary Care [...] PART A December 08, 2013 PART A [id number] KONRADDENTONMartin DAMICOBRIGID Lantigua PATIENT MEDICARE (WNR) MEDICARE (M) PART A December 08, 2013 PART A [id number] [id number] KONRADBRIGID KRAMER PATIENT Selected Encounter This section includes the information on record at [place] for the Encounter. Date/Time Encounter Type Encounter Description Reason Provider Source Sep 08, 2023 10:19 AM Outpatient Encounter EVENT (HISTORICAL) JESSE TIPTON Martin Encounter Template Text not used by [place] [...] - MEDICINE [facility] [place] [facility] Sep 17, 2023 09:30 AM AMBULATORY - REHAB MEDICIN E [facility] [place] [facility] Sep 17, 2023 10:26 AM AMBULATORY - NONE [facility] [place] [facility] Sep 21, 2023 09:15 AM AMBULATORY - MEDICINE [facility] [place] [facility] Sep 29, 2023 10:00 AM AMBULATORY - MEDICINE [facility] [place] [facility] Sep 30, 2023 10:00 AM AMBULATORY - REHAB MEDICIN E [facility] [place] [facility] Oct 21, 2023 11:45 AM AMBULATORY - MEDICINE [facility] [place] [facility] Nov 05, 2023 01:00 PM AMBULATORY - REHAB MEDICIN E [facility] [place] [facility] Nov 11, 2023 10:00 AM AMBULATORY - MEDICINE [facility] [place] [facility] Nov 24, 2023 09:30 AM AMBULATORY - MEDICINE [facility] [place] [facility] Nov 26, 2023 10:30 AM AMBULATORY - REHAB MEDICIN E [place] Dec 01, 2023 09:45 AM AMBULATORY - MEDICINE [facility] [place] [facility] Dec 01, 2023 03:30 PM AMBULATORY - REHAB MEDICIN E [place] Dec 08, 2023 09:00 AM AMBULATORY - REHAB MEDICIN E [place] January 05, 2024 01:00 PM AMBULATORY - REHAB MEDICIN E [facility] [place] [facility] Jan 15, 2024 09:30 AM AMBULATORY - REHAB MEDICIN E [place] Feb 23, 2024 09:00 AM AMBULATORY - MEDICINE [facility] [place] [facility] Feb 25, 2024 01:00 PM AMBULATORY - REHAB MEDICIN E [facility] [place] [facility] Lab Results: +/- 30 days [...] Range Comment Aug 13, 2023 10:39 AM [facility] URIC ACID Specimen Type: SERUM No comment entered. Ordering Provider: JESSE TIPTON Report Released Date/Time: Jul 28, 2023 01:48 PM Reporting Lab: [facility] [address] [facility] [address] Performing Lab: [facility] [address] [facility] [facility] [address] URIC ACID 5.8 mg/dL 3.5-7.2 Social History: [...] Jose ity May 12, 2023 10:46 AM [place]-TOBACCO NEVER USED [facility] Tobacco Use History This section includes a history of the smoking, or tobacco-related health factors, that were collected on or before the date of the Encounter. The data comes from the [place] facility where the Encounter took place. Date/Time Smoking Status/Tobacco Use Comment F acility Oct 20, 2015 10:30 AM LIFETIME NON-TOBACCO USER [facility] Sep 19, 2009 11:13 AM LIFETIME NON-TOBACCO USER [facility] Advance Directives: All historical and current [...] ADVANCE DIRECTIVE JASWANT DICKINSON [facility] Radiology Reports: +/- 30 days of [...] the Encounter. The data comes from all [place] treatment facilities. Date/Time Radiology Report Provider Source Sep 30, 2023 10:26 AM FLUOROSCOPIC [place] NCE OF NEEDLE/SPINE: COLBY HARTLEY [id number] -1970 M Exm Date: SEP 30, 2023@10:26 Req Phys: YAIR FALCON Loc: CWM/NO/MED REHAB/SPINE INJ (Re Img Loc: [facility] 1 Service: Unknown (Case 100 COMPLETE) FLUOROSCOPIC GUIDANCE OF NEEDLE/S(RAD Detailed) CPT:04391 Reason for Study: transforaminal epidural steroid injection Clinical History: Report Status: Verified Date Reported: SEP 30, 2023 Date Verified: SEP 30, 2023 Mucker [place]fferdam E-Sig:/ES/GREG OLIVIER JR Report: Study: Pain injection [...] Primary Interpreting Staff: GREG OLIVIER JR, Radiologist (Mucker Cofferdam) /GREG GAITAN JR [place] [facility] Sep 17, 2023 10:53 AM SPINE LUMBOSACRAL MIN 4 VIEWS: COLBY HARTLEY [id number] -1970 M Exm Date: SEP 17, 2023@10:53 Req Phys: HUMAIRA PITTS Loc: CWM/NO/MEDICAL REHAB B (Req'g Img Loc: [facility]/BUILD[facility] 1 Service: Unknown (Case [id number] COMPLETE) SPINE LUMBOSACRAL MIN 4 VIEWS (RAD Detailed) CPT:15757 Reason for Study: back pain with L3 left radiculopathy Clinical History: Report Status: Verified Date Reported: SEP 17, 2023 Date Verified: SEP 17, 2023 Mucker Cofferdam E-Sig:/ES/GREG OLIVIER JR Report: Study: AP and [...] Primary Interpreting Staff: GREG OLIVIER JR, Radiologist (Mucker Cofferdam) /GREG GAITAN JR [facility] Sep 17, 2023 10:35 AM HIP 2-3 VIEWS(LEFT ) WITH OR WITHOUT PELVIS: COLBY HARTLEY [id number] -1970 M [facility] Date: SEP 17, 2023@10:35 Req Phys: HUMAIRA PITTS Loc: CWM/NO/MEDICAL REHAB B (Req'g Img Loc: [facility] 1 Service: Unknown (Case 255 COMPLETE) HIP 2-3 VIEWS(LEFT) WITH OR WITHO(RAD Detailed) CPT:64311 CPT Modifiers : LT LEFT SIDE Reason for Study: pain left hip referred to knee Clinical History: Report Status: Verified Date Reported: SEP 17, 2023 Date Verified: SEP 17, 2023 Unight E-Sig:/ES/GREG OLIVIER JR Report: Study: AP view [...] Primary Interpreting Staff: GREG OLIVIER JR, Radiologist (Mucker Cofferdam) /GREG GAITAN JR [facility]
--- OUTSIDE RECORDS SUMMARY | 2024-08-18 10:04 | XMS_ITS | Encounter Summary ---
Author Name [facility] [place] Organization [place] Address [address] [place] [address] Care Team Providers Care Risk Management Professional Name Role Phone EHSAN OVALLES Primary Care [...] PART A December 08, 2013 PART A [id number] KONRADDENTONMartin MARGAUXBRIGID Lantigua PATIENT MEDICARE (WNR) MEDICARE (M) PART A December 08, 2013 PART A [id number] [phone] KONRADTASHIACRISTY BRIGID DAMICO PATIENT Selected Encounter This section includes the information on record at [place] for the Encounter. Date/Time Encounter Type Encounter Description Reason Provider Source Jun 09, 2024 12:03 PM OFF/OP CNSLTJ NEW/EST MOD 40 CARDIAC ECHO ICD-10-CM I44.7 Left bundle-branch block, unspecified FORREST,JOHN A IHE Encounter Template Text not used by [place] Assessments - Encounter Diagnoses This section includes the primary and secondary diagnoses documented for the Encounter. Date/Time Primary/Secondary Diagnosis Diagnosis Name Provider Source Jun 09, 2024 12:06 PM PRIMARY Left bundle-branch block, unspecified FORREST,JOHN A [facility] Plan of Treatment: Future Appointments (+ 6 months) and Future Tests (+/- 45 days) The Plan of Treatment section includes future care activities for the patient from all [place] treatmentfacilities. This section includes future appointments and future orders which are active, pending or scheduled. Future Appointments This section includes appointments that were scheduled to occur 6 months from the date of the Encounter, up to a maximum of 20 appointments. The data comes from all [place] treatment facilities. Appointment Date/Time Appointment Type Appointme nt Facility Name Jul 27, 2024 02:30 PM [facility] Aug 30, 2024 11:00 AM AMBULATORY - MEDICINE [facility] Sep 14, 2024 01:00 PM [facility] Active, Pending, and Scheduled Orders This section includes a listing of several types of active, pending, and scheduled orders, including clinic medications orders, diagnostic test orders, procedure orders and consult orders; where the start date of the order is 45 days before the date of the Encounter or 45 days after the date of theEncounter. The data comes from all [place] treatment facilities. Test Date/Time Test Type Test Details Facility Name May 16, 2024 02:21 PM Consult Order COMMUNITY CARE-UROLOGY Cons Cafeteria Cook's Choice [facility] Jul 05, 2024 09:45 AM Consult Order COMMUNITY CARE-ACUPUNCTURE Cons Cafeteria Cook's Choice [facility] Lab Results: +/- 30 days [...] Range Comment May 12, 2024 07:53 AM [facility] METHADONE SCREEN Specimen Type: URINE Comment: MALCOLM test are qualitative, any L or H flags only indicate a VA alert was sent. Ordering Provider: DEE DEE WILSON Report Released Date/Time: May 11, 2024 03:52 PM Reporting Lab: [facility] [address] [facility] [address] Performing Lab: [facility] [address] [facility] [address] METHADONE SCREEN None detected(Nega tive) L Negative May 12, 2024 07:53 AM [facility] ALCOHOL, ETHYL URINE PANEL Specimen [...] May 11, 2024 03:52 PM Reporting Lab: [address] [address] Performing Lab: [address] [address] ALCOHOL, ETHYL URINE NONE-DETECTED mg/dL NONE-DETEC AMANDA, cutoff = 10 mg/dL PH, MALCOLM 5.6 [pH] 4-10 CREATININE, MALCOLM 162.14 mg/dL >20 SP.GRAVITY, MALCOLM 1.021 H 1.00 3-1.02 0 May 12, 2024 07:53 AM [facility] FENTANYL SCREEN PANEL Specimen Type: [...] May 11, 2024 03:52 PM Reporting Lab: [address] [address] Performing Lab: [address] [place] [address] FENTANYL SCREEN NONE-DETECTE D ng/mL Negative: Cutoff = 1.00 ng/mL PH, MALCOLM 5.6 [pH] 4-10 CREATININE, MALCOLM 156.70 mg/dL >20 SP.GRAVITY, MALCOLM 1.020 1.00 3-1.02 0 May 12, 2024 07:53 AM [facility] AMPHETAMINES SCREEN PANEL Specimen Type: [...] May 11, 2024 03:52 PM Reporting Lab: [address] [address] Performing Lab: [address] [address] AMPHETAMINES SCREEN NONE-DETECTED None-Detec amanda, Cutoff = 1000 ng/mL PH, MALCOLM 5.6 [pH] 4-10 CREATININE, MALCOLM 162.14 mg/dL >20 SP.GRAVITY, MALCOLM 1.021 H 1.00 3-1.02 0 May 12, 2024 07:53 AM [facility] BENZODIAZEPINES SCREEN PANEL Specimen Type: [...] May 11, 2024 03:52 PM Reporting Lab: [address] [address] Performing Lab: [address] [address] BENZODIAZEPINES SCREEN NONE-DETECTED None-Detec amanda, Cutoff = 200 ng/mL PH, MALCOLM 5.6 [pH] 4-10 CREATININE, MALCOLM 162.14 mg/dL >20 SP.GRAVITY, MALCOLM 1.021 H 1.00 3-1.02 0 May 12, 2024 07:53 AM [facility] CANNABINOIDS SCREEN PANEL Specimen Type: [...] May 11, 2024 03:52 PM Reporting Lab: [address] [address] Performing Lab: [address] [address] CANNABINOIDS SCREEN NONE-DETECTED None-Detec amanda,Cutoff = 50 ng/mL PH, MALCOLM 5.6 [pH] 4-10 CREATININE, MALCOLM 162.14 mg/dL >20 SP.GRAVITY, MALCOLM 1.021 H 1.00 3-1.02 0 May 12, 2024 07:53 AM [facility] BUPRENORPHINE SCREEN PANEL Specimen Type: [...] May 11, 2024 03:52 PM Reporting Lab: [address] [address] Performing Lab: [address] [address] BUPRENORPHINE (URINE) NONE-DETECTED None Detected, Cutoff = 10.0 ng/mL PH, MALCOLM 5.6 [pH] 4-10 CREATININE, MALCOLM 162.14 mg/dL >20 SP.GRAVITY, MALCOLM 1.021 H 1.00 3-1.02 0 May 12, 2024 07:53 AM [facility] COCAINE SCREEN PANEL Specimen Type: [...] May 11, 2024 03:52 PM Reporting Lab: [address] [address] Performing Lab: [address] [address] COCAINE SCREEN NONE-DETECTED N one-Detec amanda,Cutoff = 300 ng/mL PH, MALCOLM 5.6 [pH] 4-10 CREATININE, MALCOLM 162.14 mg/dL >20 SP.GRAVITY, MALCOLM 1.021 H 1.00 3-1.02 0 May 12, 2024 07:53 AM [facility] OPIATES SCREEN PANEL Specimen Type: [...] 11, 2024 03:52 PM Reporting Lab: [place] [address] [address] Performing Lab: [address] [address] OPIATES SCREEN NONE-DETECTED N one-Detec amanda, Cutoff = 300 ng/mL PH, MALCOLM 5.6 [pH] 4-10 CREATININE, MALCOLM 162.14 mg/dL >20 SP.GRAVITY, MALCOLM 1.021 H 1.00 3-1.02 0 May 12, 2024 07:53 AM [facility] OXYCODONE SCREEN PANEL Specimen Type: [...] have been adulterated. Ordering Provider: DEE DEE WISLON Report Released Date/Time: May 11, 2024 03:52 PM Reporting Lab: [address] [address] Performing Lab: [address] [address] OXYCODONE SCREEN NONE-DETECTED None-Detec amanda, Cutoff = 100 ng/mL PH, MALCOLM 5.6 [pH] 4-10 CREATININE, MALCOLM 162.14 mg/dL >20 SP.GRAVITY, MALCOLM 1.021 H 1.00 3-1.02 0 May 12, 2024 07:47 AM [facility] HEMOGLOBIN A1C PANEL Specimen Type: [...] AM Reporting Lab: [facility] [place] [facility] [address] [facility] [address] Performing Lab: [place] [facility] [address] [facility] [address] HEMOGLOBIN A1C 5.0 4.0-5.6 May 12, 2024 07:47 AM [facility] MAGNESIUM Specimen Type: SERUM No comment entered. Ordering Provider: EHSAN OVALLES Report Released Date/Time: Nov 11, 2023 05:57 AM Reporting Lab: [facility] [place] [facility] [address] [facility] [address] Performing Lab: [facility] [place] [facility] [address] [facility] [address] MAGNESIUM 2.0 mg/dL 1.6-2.6 May 12, 2024 07:47 AM [facility] URIC ACID Specimen Type: SERUM No comment entered. Ordering Provider: EHSAN OVALLES Report Released Date/Time: Nov 11, 2023 05:57 AM Reporting Lab: [facility] [place] [facility] [address] [facility] [address] Performing Lab: [facility] [place] [facility] [address] [facility] [address] URIC ACID 5.6 mg/dL 3.5-7.2 May 12, 2024 07:47 AM [facility] LIPID PANEL FASTING Specimen Type: SERUM No comment entered. Ordering Provider: EHSAN OVALLES Report Released Date/Time: Nov 11, 2023 05:57 AM Reporting Lab: [facility] [place] [facility] [address] [facility] [address] Performing Lab: [facility] [place] [place] [address] [address] CHOLESTEROL 246 mg/dL H TRIGLYCERIDE 153 mg/dL H 0-150 LDL calculated 182 mg/dL H 0-129 CHOL/HDL 7.5 HDL CHOLESTEROL 33 mg/dL L 40-60 May 12, 2024 07:47 AM [facility] PSA Specimen Type: SERUM No comment entered. Ordering Provider: EHSAN OVALLES Report Released Date/Time: Nov 11, 2023 05:57 AM Reporting Lab: [place] [facility] [address] [facility] [address] Performing Lab: [facility] [place] [facility] [address] [facility] [address] PSA 0.84 ng/mL 0.00-4.00 May 12, 2024 07:47 AM [facility] TSH Specimen Type: SERUM No comment entered. Ordering Provider: EHSAN OVALLES Report Released Date/Time: Nov 11, 2023 05:57 AM Reporting Lab: [place] [facility] [address] [facility] [address] Performing Lab: [place] [facility] [address] [facility] [address] TSH 4.05 u[IU]/mL 0.35-5.00 May 12, 2024 07:47 AM [facility] LIVER FUNCTION Specimen Type: SERUM No comment entered. Ordering Provider: EHSAN OVALLES Report Released Date/Time: Nov 11, 2023 05:57 AM Reporting Lab: [facility] [place] [facility] [address] [facility] [address] Performing Lab: [place] [facility] [address] [facility] [address] PROTEIN,TOTAL 6.6 g/dL 6.0-8.3 ALBUMIN 3.8 g/dL 3.5-5.0 ALKALINE PHOSPHATASE 59 U/L 40-150 AST 20 U/L 5-34 ALT 37 U/L BILIRUBIN, TOTAL 0.4 mg/dL 0.2-1.2 May 12, 2024 07:47 AM [facility] BASIC METABOLIC PANEL (fasting) Specimen Type: SERUM No comment entered. Ordering Provider: EHSAN OVALLES Report Released Date/Time: Nov 11, 2023 05:57 AM Reporting Lab: [place] [facility] [address] [facility] [address] Performing Lab: [place] [address] [address] UREA NITROGEN 22 mg/dL 7-25 GLUCOSE 88 mg/dL 65-100 SODIUM 141 mmol/L 135-145 POTASSIUM 4.4 mmol/L 3.5-5.0 CHLORIDE 108 mmol/L 100-110 CO2 23 meq/L 20-30 CREATININE, Serum 1.09 mg/dL 0.50-1.40 eGFR(CKD-EPI 2020) 82 mL/min >60 May 12, 2024 07:47 AM [facility] CBC AND DIFF (AUTO) Specimen Type: BLOOD No comment entered. Ordering Provider: EHSAN OVALLES Report Released Date/Time: Nov 11, 2023 05:57 AM Reporting Lab: [facility] [address] [facility] [address] Performing Lab: [facility] [address] [facility] [address] WBC 8.27 10*3/uL 4.50-11.00 RBC 5.05 10*6/uL [...] 0.0 0.0-0.0 NRBC, ABS 0.00 10*3/uL 0.00-0.00 Advance Directives: All historical and current Section Date Range: From patient's date of to the date document was created. This section includes ALL of a patient's completed or amended [place] Advance and Rescinded Directives. The entries below indicate that a directive exists for the patient, but an actual copy is not included with this document. The data comes from all [place] facilities. Date Advance Directives Provider Source Mar 22, 2018 ADVANCE DIRECTIVE JASWANT DICKINSON IN Val NTRL WSTRN [facility] Encounter Notes: All associated encounter notes This section contains the clinical notes associated to the Encounter. Date/Time Encounter Note(s) Provider Source Jun 09, 2024 12:04 PM CARDIOLOGY CONSULT : LOCAL TITLE: ECHO CONSULT STANDARD TITLE: CARDIOLOGY CONSULT DATE OF NOTE: JUN 09, 2024@12:04 ENTRY DATE: JUN 09, 2024@12:04:17 AUTHOR: JOHN CLAYTON EXP COSIGNER: URGENCY: STATUS: COMPLETED Remote echo read completed. Report in [facility]. /dheeraj/ JOHN CLAYTON ATTENDING PHYSICIAN Signed: 06/09/2024 12:06 JOHN CLAYTON [facility]
--- OUTSIDE RECORDS SUMMARY | 2024-08-18 10:04 | XMS_ITS | Encounter Summary ---
Author Name Department [place] Organization [place] Address [address] [place] [address] Care Team Providers Care Customs Opener Verifier Packer Name Role Phone EHSAN OVALLES Primary Care [...] PART A December 08, 2013 PART A [id number] [facility] BRIGID RAMOS Rhina PATIENT MEDICARE (WNR) MEDICARE (M) PART A December 08, 2013 PART A [id number] KONRADTASHIACRISTY BRIGID DAMICO PATIENT Selected Encounter This section includes the information on record at [place] for the Encounter. Date/Time Encounter Type Encounter Description Reason Provider Source May 31, 2024 11:42 AM ELECTROCARDIOGRAM REPORT EKG ICD-10-CM Z13.6 Encounter for screening for cardiovascular disorders Trisha MURRY Encounter Template Text not used by [place] Assessments - Encounter Diagnoses This section includes the primary and secondary diagnoses documented for the Encounter. Date/Time Primary/Secondary Diagnosis Diagnosis Name Provider Source Jun 02, 2024 12:08 PM PRIMARY Encounter for screening for cardiovascular disorders [facility] Plan of Treatment: Future Appointments (+ 6 months) and Future Tests (+/- 45 days) The Plan of Treatment section includes future care activities for the patient from all [place] [facility] This section includes future appointments [...] 03, 2024 09:50 AM AMBULATORY - MEDICINE [place] [facility] Jun 07, 2024 11:30 AM AMBULATORY - NONE [place] [facility] Jul 27, 2024 02:30 PM AMBULATORY - REHAB MEDICIN E [place] [facility] Aug 30, 2024 11:00 AM AMBULATORY - MEDICINE [place] C [place] [facility] Sep 14, 2024 01:00 PM AMBULATORY - [facility]IN [facility] Active, Pending, and Scheduled Orders This section includes a listing of several types of active, pending, and scheduled orders, including clinic medications orders, diagnostic test orders, procedure orders and consult orders; where the start date of the order is 45 days before the date of the Encounter or 45 days after the date of theEncounter. The data comes from all [place] treatment [place]. Test Date/Time Test Type Test Details Facility Name May 16, 2024 02:21 PM Consult Order COMMUNITY CARE-UROLOGY Cons Mechanotherapist's Choice [facility] Jul 05, 2024 09:45 AM Consult Order COMMUNITY CARE-ACUPUNCTURE Cons Mechanotherapist's Choice [facility] Lab Results: +/- 30 days of [...] Range Comment May 12, 2024 07:53 AM [facility] METHADONE SCREEN Specimen Type: URINE Comment: MALCOLM test are qualitative, any L or H flags only indicate a VA alert was sent. Ordering Provider: DEE DEE WILSON Report Released Date/Time: May 11, 2024 03:52 PM Reporting Lab: [facility] [address] [facility] [address] Performing Lab: [facility] [address] [facility] [address] METHADONE SCREEN None detected(Nega tive) L Negative May 12, 2024 07:53 AM [facility] ALCOHOL, ETHYL URINE PANEL Specimen Type: [...] May 11, 2024 03:52 PM Reporting Lab: [address] [address] Performing Lab: [address] [address] ALCOHOL, ETHYL URINE NONE-DETECTED mg/dL NONE-DETEC AMANDA, cutoff = 10 mg/dL PH, MALCOLM 5.6 [pH] 4-10 CREATININE, MALCOLM 162.14 mg/dL >20 SP.GRAVITY, MALCOLM 1.021 H 1.00 3-1.02 0 May 12, 2024 07:53 AM [facility] AMPHETAMINES SCREEN PANEL Specimen Type: URINE [...] May 11, 2024 03:52 PM Reporting Lab: [address] [address] Performing Lab: [address] [address] AMPHETAMINES SCREEN NONE-DETECTED None-Detec amanda, Cutoff = 1000 ng/mL PH, MALCOLM 5.6 [pH] 4-10 CREATININE, MALCOLM 162.14 mg/dL >20 SP.GRAVITY, MALCOLM 1.021 H 1.00 3-1.02 0 May 12, 2024 07:53 AM [facility] FENTANYL SCREEN PANEL Specimen Type: URINE [...] May 11, 2024 03:52 PM Reporting Lab: [address] [address] Performing Lab: [address] [address] FENTANYL SCREEN NONE-DETECTE D ng/mL Negative: Cutoff = 1.00 ng/mL PH, MALCOLM 5.6 [pH] 4-10 CREATININE, MALCOLM 156.70 mg/dL >20 SP.GRAVITY, MALCOLM 1.020 1.00 3-1.02 0 May 12, 2024 07:53 AM [facility] BENZODIAZEPINES SCREEN PANEL Specimen Type: URINE [...] May 11, 2024 03:52 PM Reporting Lab: [address] [address] Performing Lab: [address] [address] BENZODIAZEPINES SCREEN NONE-DETECTED None-Detec amanda, Cutoff = 200 ng/mL PH, MALCOLM 5.6 [pH] 4-10 CREATININE, MALCOLM 162.14 mg/dL >20 SP.GRAVITY, MALCOLM 1.021 H 1.00 3-1.02 0 May 12, 2024 07:53 AM [facility] BUPRENORPHINE SCREEN PANEL Specimen Type: URINE [...] May 11, 2024 03:52 PM Reporting Lab: [address] [address] Performing Lab: [address] [address] BUPRENORPHINE (URINE) NONE-DETECTED None Detected, Cutoff = 10.0 ng/mL PH, MALCOLM 5.6 [pH] 4-10 CREATININE, MALCOLM 162.14 mg/dL >20 SP.GRAVITY, MALCOLM 1.021 H 1.00 3-1.02 0 May 12, 2024 07:53 AM [facility] CANNABINOIDS SCREEN PANEL Specimen Type: URINE [...] May 11, 2024 03:52 PM Reporting Lab: [address] [address] Performing Lab: [address] [address] CANNABINOIDS SCREEN NONE-DETECTED None-Detec amanda,Cutoff = 50 ng/mL PH, MALCOLM 5.6 [pH] 4-10 CREATININE, MALCOLM 162.14 mg/dL >20 SP.GRAVITY, MALCOLM 1.021 H 1.00 3-1.02 0 May 12, 2024 07:53 AM [facility] COCAINE SCREEN PANEL Specimen Type: URINE [...] May 11, 2024 03:52 PM Reporting Lab: [address] [address] Performing Lab: [address] [address] COCAINE SCREEN NONE-DETECTED N one-Detec amanda,Cutoff = 300 ng/mL PH, MALCOLM 5.6 [pH] 4-10 CREATININE, MALCOLM 162.14 mg/dL >20 SP.GRAVITY, MALCOLM 1.021 H 1.00 3-1.02 0 May 12, 2024 07:53 AM [facility] OPIATES SCREEN PANEL Specimen Type: URINE [...] May 11, 2024 03:52 PM Reporting Lab: [facility] [address] Performing Lab: [facility] [address] [address] OPIATES SCREEN NONE-DETECTED N one-Detec amanda, Cutoff = 300 ng/mL PH, MALCOLM 5.6 [pH] 4-10 CREATININE, MALCOLM 162.14 mg/dL >20 SP.GRAVITY, MALCOLM 1.021 H 1.00 3-1.02 0 May 12, 2024 07:53 AM [facility] OXYCODONE SCREEN PANEL Specimen Type: URINE [...] May 11, 2024 03:52 PM Reporting Lab: [facility] [address] Performing Lab: [facility] [address] OXYCODONE SCREEN NONE-DETECTED None-Detec amanda, Cutoff = 100 ng/mL PH, MALCOLM 5.6 [pH] 4-10 CREATININE, MALCOLM 162.14 mg/dL >20 SP.GRAVITY, MALCOLM 1.021 H 1.00 3-1.02 0 May 12, 2024 07:47 AM [facility] MAGNESIUM Specimen Type: SERUM No comment entered. Ordering Provider: EHSAN OVALLES Report Released Date/Time: Nov 11, 2023 05:57 AM Reporting Lab: [address] [address] Performing Lab: [address] [address] MAGNESIUM 2.0 mg/dL 1.6-2.6 May 12, 2024 07:47 AM [facility] URIC ACID Specimen Type: SERUM No comment entered. Ordering Provider: EHSAN OVALLES Report Released Date/Time: Nov 11, 2023 05:57 AM Reporting Lab: [facility] [address] [facility] [address] Performing Lab: [address] [address] URIC ACID 5.6 mg/dL 3.5-7.2 May 12, 2024 07:47 AM [facility] HEMOGLOBIN A1C PANEL Specimen Type: BLOOD [...] Nov 11, 2023 05:57 AM Reporting Lab: [address] [address] Performing Lab: [address] [address] HEMOGLOBIN A1C 5.0 4.0-5.6 May 12, 2024 07:47 AM [facility] LIPID PANEL FASTING Specimen Type: SERUM No comment entered. Ordering Provider: EHSAN OVALLES Report Released Date/Time: Nov 11, 2023 05:57 AM Reporting Lab: [address] [address] Performing Lab: [address] [address] CHOLESTEROL 246 mg/dL H TRIGLYCERIDE 153 mg/dL H 0-150 LDL calculated 182 mg/dL H 0-129 CHOL/HDL 7.5 HDL CHOLESTEROL 33 mg/dL L 40-60 May 12, 2024 07:47 AM [facility] PSA Specimen Type: SERUM No comment entered. Ordering Provider: EHSAN OVALLES Report Released Date/Time: Nov 11, 2023 05:57 AM Reporting Lab: [facility] [address] [address] Performing Lab: [address] [address] PSA 0.84 ng/mL 0.00-4.00 May 12, 2024 07:47 AM [facility] LIVER FUNCTION Specimen Type: SERUM No comment entered. Ordering Provider: EHSAN OVALLES Report Released Date/Time: Nov 11, 2023 05:57 AM Reporting Lab: [facility] [address] [address] Performing Lab: [address] [address] PROTEIN,TOTAL 6.6 g/dL 6.0-8.3 ALBUMIN 3.8 g/dL 3.5-5.0 ALKALINE PHOSPHATASE 59 U/L 40-150 AST 20 U/L 5-34 ALT 37 U/L BILIRUBIN, TOTAL 0.4 mg/dL 0.2-1.2 May 12, 2024 07:47 AM [facility] TSH Specimen Type: SERUM No comment entered. Ordering Provider: EHSAN OVALLES Report Released Date/Time: Nov 11, 2023 05:57 AM Reporting Lab: [facility] [address] [address] Performing Lab: [address] [address] TSH 4.05 u[IU]/mL 0.35-5.00 May 12, 2024 07:47 AM [facility] BASIC METABOLIC PANEL (fasting) Specimen Type: SERUM No comment entered. Ordering Provider: EHSAN OVALLES Report Released Date/Time: Nov 11, 2023 05:57 AM Reporting Lab: [address] [address] Performing Lab: [facility] [address] [facility] [address] UREA NITROGEN 22 mg/dL 7-25 GLUCOSE 88 mg/dL 65-100 SODIUM 141 mmol/L 135-145 POTASSIUM 4.4 mmol/L 3.5-5.0 CHLORIDE 108 mmol/L 100-110 CO2 23 meq/L 20-30 CREATININE, Serum 1.09 mg/dL 0.50-1.40 eGFR(CKD-EPI 2020) 82 mL/min >60 May 12, 2024 07:47 AM [facility] CBC AND DIFF (AUTO) Specimen Type: BLOOD No comment entered. Ordering Provider: EHSAN OVALLES Report Released Date/Time: Nov 11, 2023 05:57 AM Reporting Lab: [facility] [address] [facility] [id number] Performing Lab: [facility] [address] [facility] [id number] WBC 8.27 10*3/uL 4.50-11.00 RBC 5.05 10*6/uL [...] Mar 22, 2018 ADVANCE DIRECTIVE JASWANT DICKINSON [place] [facility] Encounter Notes: All associated encounter notes This section contains the clinical notes associated to the Encounter. Date/Time Encounter Note(s) Provider Source Jun 02, 2024 12:07 PM CARDIOLOGY PROCEDU RE NOTE: LOCAL TITLE: EKG OUTPATIENT RESULT STANDARD TITLE: CARDIOLOGY PROCEDURE NOTE DATE OF NOTE: JUN 02, 2024@12:07 ENTRY DATE: JUN 02, 2024@12:08:05 AUTHOR: JUAN COBURN EXP COSIGNER: URGENCY: STATUS: COMPLETED An EKG was done on: May Please see [facility] for the EKG result. /[email or web address]/ JUAN COBURN DISCHARGING MACHINE OPERATOR Signed: 06/02/2024 12:08 JUAN COBURN [facility]
--- OUTSIDE RECORDS SUMMARY | 2024-08-18 10:05 | XMS_ITS ---
Author Name [facility] [place] [facility] [place] [place] Address [address] [place] [address] Care Team Providers Care Speeder Worker Name Role Phone EHSAN OVALLES Primary [...] PART A December 08, 2013 PART A [id number] [phone] BRIGID RAMOS PATIENT MEDICARE (WNR) MEDICARE (M) PART A December 08, 2013 PART A [id number] BRIGID RAMOS PATIENT Selected Encounter This section includes the information on record at [place] for the Encounter. Date/Time Encounter Type Encounter Description Reason Provider Source Sep 17, 2023 09:30 AM OFFICE O/P NEW [place] 60 MIN PM&RS PHYSICIAN ICD-10-CM M54.50 Low back pain, unspecified SHARMILA PITTS Martin Encounter Template Text not used by [place] Assessments - Encounter Diagnoses This section includes the primary and secondary diagnoses documented for the Encounter. Date/Time Primary/Secondary Diagnosis Diagnosis Name Provider Source Sep 18, 2023 02:09 PM PRIMARY Low back pain, unspecified SHARMILA PITTS [place] [facility] [place] [facility] Sep 18, 2023 02:09 PM SECONDARY Other spondylosis with radiculopathy, lumbar region SHARMILA PITTS [place] [facility] [place] [facility] Plan of Treatment: Future Appointments (+ 6 months) and Future Tests (+/- 45 days) The Plan of Treatment section includes future care activities for the patient from [facility] [place] [facility] This section includes future appointments and future orders which are active, pending or scheduled. Future Appointments This section includes appointments that were scheduled to occur 6 months from the date of the Encounter, up to a maximum of 20 appointments. The data comes from all [place] treatment facilities. Appointment Date/Time Appointment Type Appointme nt Facility Name Sep 21, 2023 09:15 AM AMBULATORY - MEDICINE [facility] [place] [facility] Sep 29, 2023 10:00 AM AMBULATORY - MEDICINE [facility] [place] [facility] Sep 30, 2023 10:00 AM AMBULATORY - REHAB MEDICIN E [facility] [place] [facility] Oct 21, 2023 11:45 AM AMBULATORY - MEDICINE [facility] [place] [facility] Nov 05, 2023 01:00 PM AMBULATORY - REHAB MEDICIN E [facility] [place] [facility] Nov 11, 2023 10:00 AM AMBULATORY - MEDICINE [facility] [place] [facility] Nov 24, 2023 09:30 AM AMBULATORY - MEDICINE [facility] [place] [facility] Nov 26, 2023 10:30 AM AMBULATORY - REHAB MEDICIN E [place] Dec 01, 2023 09:45 AM AMBULATORY - MEDICINE [facility] [place] [facility] Dec 01, 2023 03:30 PM AMBULATORY - REHAB MEDICIN E [place] Dec 08, 2023 09:00 AM AMBULATORY - REHAB MEDICIN E [place] January 05, 2024 01:00 PM AMBULATORY - REHAB MEDICIN E [facility] [place] [facility] Jan 15, 2024 09:30 AM AMBULATORY - REHAB MEDICIN E [place] Feb 23, 2024 09:00 AM AMBULATORY - MEDICINE [facility] [place] [facility] Feb 25, 2024 01:00 PM AMBULATORY - REHAB MEDICIN E [facility] [place] [facility] Vital Signs: All taken on the encounter date This section contains inpatient and outpatient Vital Signs collected on the date of the Encounter. Date/Time Temperature Pulse Blood Pressure Respiratory Rate SP02 Pain Height Weight Body Mass Index Source Sep 17, 2023 09:41 AM 130/70 9 [facility] Social History: Smoking Status (Most current) and Tobacco Use (All prior to encounter date) This section includes the most current, and the historical, smoking and tobacco- related health factors from the [place] facility where the Encounter took place. Current Smoking Status This section includes the most current smoking, or tobacco-related health factor, from the [place] facility where the Encounter took place. Date/Time Current Smoking Status Comment Facil ity May 12, 2023 10:46 AM VA-TOBACCO NEVER USED [facility] Tobacco Use History This section includes a history of the smoking, or tobacco-related health factors, that were collected on or before the date of the Encounter. The data comes from the [place] facility where the Encounter took place. Date/Time Smoking Status/Tobacco Use Comment F acility Oct 20, 2015 10:30 AM LIFETIME NON-TOBACCO USER [facility] Sep 19, 2009 11:13 AM LIFETIME NON-TOBACCO USER [facility] Advance Directives: All historical and current Section Date Range: From patient's date of to the date document was created. This section includes ALL of a patient's completed or amended [place] Advance and Rescinded Directives. The entries below indicate that a directive exists for the patient, but an actual copy is not included with this document. The data comes from all [place] facilities. Date Advance Directives Provider Source Mar 22, 2018 ADVANCE DIRECTIVE JASWANT DICKINSON [facility] Radiology Reports: +/- 30 days [...] the Encounter. The data comes from all [place] treatment facilities. Date/Time Radiology Report Provider Source Sep 30, 2023 10:26 AM FLUOROSCOPIC [place] NCE OF NEEDLE/SPINE: COLBY HARTLEY [id number] -[id number] M Exm Date: SEP 30, 2023@10:26 Req Phys: YAIR FALCON Bety Loc: [facility]/NO/MED REHAB/SPINE INJ (Re Img Loc: [facility] Service: Unknown (Case [id number] COMPLETE) FLUOROSCOPIC GUIDANCE OF NEEDLE/S(RAD Detailed) CPT:93442 Reason for Study: transforaminal epidural steroid injection Clinical History: Report Status: Verified Date Reported: SEP 30, 2023 Date Verified: SEP 30, 2023 Shortage Worker E-Sig:/ES/GREG OLIVIER JR Report: Study: Pain injection [...] Primary Interpreting Staff: GREG OLIVIER JR, Radiologist (Shortage Worker) /EAGREG KRUEGER JR [place] [facility] Sep 17, 2023 10:53 AM SPINE LUMBOSACRAL MIN 4 VIEWS: COLBY HARTLEY [id number] -[id number] M Exm Date: SEP 17, 2023@10:53 Req Phys: HUMAIRA PITTS Loc: [facility]/NO/MEDICAL REHAB B (Req'g Img Loc: [facility] Service: Unknown (Case [id number] COMPLETE) SPINE LUMBOSACRAL MIN 4 VIEWS (RAD Detailed) CPT:10456 Reason for Study: back pain with L3 left radiculopathy Clinical History: Report Status: Verified Date Reported: SEP 17, 2023 Date Verified: SEP 17, 2023 Shortage Worker E-Sig:/ES/GREG OLIVIER JR Report: Study: AP and [...] Primary Interpreting Staff: GREG OLIVIER JR, Radiologist (Shortage Worker) /GREG GAITAN JR [facility] Sep 17, 2023 10:35 AM HIP 2-3 VIEWS(LEFT ) WITH OR WITHOUT PELVIS: COLBY HARTLEY [id number] -[id number] M Ex Date: SEP 17, 2023@10:35 Req Phys: PITTSJERHUMAIRA Adarsh Albert Loc: [facility]/NO/MEDICAL REHAB B (Req'g Img Loc: [facility] Service: Unknown (Case [id number] COMPLETE) HIP 2-3 VIEWS(LEFT) WITH OR WITHO(RAD Detailed) CPT:58382 CPT Modifiers : LT LEFT SIDE Reason for Study: pain left hip referred to knee Clinical History: Report Status: Verified Date Reported: SEP 17, 2023 Date Verified: SEP 17, 2023 Shortage Worker E-Sig:/ES/GREG OLIVIER JR Report: Study: AP view [...] Primary Interpreting Staff: GREG OLIVIER JR, Radiologist (Shortage Worker) /GREG GAITAN JR [facility] Encounter Notes: All associated encounter notes This section contains the clinical notes associated to the Encounter. Date/Time Encounter Note(s) Provider Source Sep 17, 2023 09:47 AM PHYSICAL MEDICINE REHAB CONSULT: LOCAL TITLE: CONSULT REPORT/PM&R STANDARD TITLE: PHYSICAL MEDICINE REHAB CONSULT DATE OF NOTE: SEP 17, 2023@09:47 ENTRY DATE: SEP 17, 2023@09:47:45 AUTHOR: HUMAIRA PITTS EXP COSIGNER: URGENCY: STATUS: COMPLETED SEP 17, 2023 COLBY HARTLEY II is a 53 y/o RHD WHITE MALE, previously in [employer] FROM May TO Aug from PERIOD OF SERVICE - [employer], who was evaluated today for chief complaint of pain in the left leg and back pain. Onset/Course:Back pain had decompression in 2018. He had modest improvement for 1 year and then symptoms began to recur. Trauma/inciting events:None Quality/associated symptoms:Ache lateral hip. Feels like the left hip is dislocating. Buttock pain and left paralumbar pain. Denies weakness, numbness, or tingling in the lower extremities. Radiation:Lateral upper thigh, groin and left hamstring. Aggravating factors:Walking , bending, sitting, Hip flexion is very painful actively. Alleviating factors:tens, rest. Severity:6 /10 Overall average level of function: 4 /10 Timing: (constant) Medications/Therapy/Interv entions history:acupuncture, chiro-helpful,PT, His goal is to eliminate occasional vicodin He Takes buprenorphone transbuccal 300 mcg every 12 hours .Systemic/Other symptoms: Denies fever, chills, night sweats, weight loss, saddle paresthesia, or bowel/bladder incontinence. Daily activities/exercise: Minimal Pertinent prior procedures and/or imaging: X-rays of the left hip were obtained today which were read as normal. X-rays of the lumbar spine showed no evidence of instability. MRI of the lumbar spine was not able to be performed however CT scan was demonstrating foraminal stenosis at L3 and L5 on the left PMHx as obtained from Chart: Active problems - Computerized Problem List is the source for the followin. Left knee pain 2. Chronic low back pain 3. Chronic esophagitis 4. Obesity 5. Constrictive tenosynovitis 6. Erectile dysfunction 7. Obstructive sleep apnea syndrome 8. Hyperlipidemia 9. Posttraumatic stress disorder 10. Depression 11. Hypertension 12. Gout 13. Traumatic brain injury (SNOMED CT [id number]) 14. Asthma PSxHx: 2018 Lumbar decompression, bialteral carpal tunnel. Right ankle, Supraspinatus left shoulder, right elbow, septum surgery x2, right knee drained Fam Hx: Mother- obesity Father dementia, hypertension Soc Hx: MARITAL STATUS - [employer] FROM May TO Aug Service Connected Disabilities with % Eligibility: SERVICE CONNECTED 50% to 100% VERIFIED Total S/C %: 90 SEPTUM, NASAL, DEVIATION OF 0% S/C DEFORMITY OF THE PENIS 0% S/C LOSS OF SENSE OF TASTE 0% S/C POST-TRAUMATIC STRESS DISORDER 70% S/C TINNITUS 10% S/C MIGRAINE HEADACHES 50% S/C LOSS OF SENSE OF SMELL 10% S/C LOSS OF SENSE OF TASTE 0% S/C TRAUMATIC BRAIN DISEASE 40% S/C ALL: PENICILLIN, MUSHROOMS, MELOXICAM MEDS: Active Outpatient Medications (including Supplies): ACETAMINOPHEN 500MG TAB TAKE TWO TABLETS BY MOUTH THREE ACTIVE TIMES DAILY NEEDED FOR PAIN ALBUTEROL 90MCG (CFC-F) 200D ORAL INHL INHALE 2 PUFFS BY ACTIVE MOUTH FOUR TIMES DAILY NEEDED FOR SHORTNESS OF BREATH BUPRENORPHINE 300MCG BUCCAL FILM PLACE ONE FILM BETWEEN ACTIVE CHEEK AND GUM UNTIL DISSOLVED EVERY 12 HOURS FOR PAIN CHOLECALCIF 50MCG (D3-2,000UNIT) TAB TAKE TWO TABLETS BY ACTIVE MOUTH EVERY DAY FOR VITAMIN SUPPLEMENTATION CLOMIPHENE CITRATE 50MG TAB TAKE ONE-HALF TABLET BY MOUTH ACTIVE ONCE DAILY DICLOFENAC NA 1% TOP GEL APPLY 4 GRAMS TOPICALLY FOUR ACTIVE TIMES A DAY FOR OSTEOARTHRITIS - USE DOSING CARD PROVIDED IN BOX FLUTICAS 500/SALMETEROL 50 INHL DISK 60 INHALE 1 PUFF BY ACTIVE MOUTH TWICE DAILY - RINSE MOUTH AFTER USE LIDOCAINE 5% OINT APPLY THIN LAYER TOPICALLY TWICE DAILY ACTIVE TO THREE TIMES A DAY NEEDED FOR MINOR SKIN WOUND PAIN LOSARTAN 100MG TAB TAKE ONE TABLET BY MOUTH ONCE DAILY FOR ACTIVE BLOOD PRESSURE/HEART NAPROXEN 500MG TAB TAKE ONE TABLET BY MOUTH TWICE DAILY ACTIVE TAKE WITH FOOD OMEPRAZOLE 20MG EC CAP TAKE ONE CAPSULE BY MOUTH TWICE ACTIVE DAILY OXYCODONE HCL 5MG TAB NOT SA TAKE TWO TABLETS BY ACTIVE MOUTH TWICE DAILY NEEDED FOR PAIN NOT FOR USE EVERY DAY (NEXT FILL 10/08/23) PRAZOSIN HCL 1MG CAP TAKE THREE CAPSULES BY MOUTH AT ACTIVE BEDTIME TAKE DOSE AT 11 PM. PREGABALIN 100MG ORAL CAP TAKE ONE CAPSULE BY MOUTH TWICE ACTIVE DAILY FOR PAIN SILDENAFIL CITRATE 100MG TAB TAKE ONE TABLET BY MOUTH ONCE ACTIVE DAILY NEEDED TAKE 1 HOUR PRIOR TO SEXUAL ACTIVITY No Active Remote Medications for this patient ROS: Constitutional - Denies fever or chills, night sweats, or unexplained weight loss. Head/Eyes/Ears/Neck- Denies headaches, dizziness, visual changes. Cardiovascular - Denies chest pain/palpitations, lower extremity swelling. Respiratory - Denies shortness of breath, or cough. GI - Denies nausea, vomiting, or loss of bowel fx/control. - Denies urinary difficulties or loss of bladder function. Musculoskeletal - See HPI. Neuro - See HPI. Psychiatric - See PMHx. Denies mood swings or change in behavior. Sleep - Denies nocturnal pain or excessive daytime fatigue. Skin/integuments - Denies rashes, lesions, does have chronic rashes and itching All other systems reviewed and are negative. PHYSICAL EXAMINATION: Vitals in chart. GEN: WD, WN. Awake, alert, cooperative with exam. In NAD. PSYCH: Good eye contact. Normal mood. Appropriately concerned. CVS: Extremities warm/well perfused. No lower extremity edema appreciated. PULM: Breathing unlabored, no accessory muscle use. ABD: Nondistended. EXTREMITIES: No cyanosis or edema of bilateral upper and lower extremities. SKIN: No rashes, lesions, or skin breakdown over exposed areas. MUSCULOSKELETAL/NEURO EXAM: On exam this is a very large gentleman. Chronic urticaria identified on the extremities with excoriation. Speech is somewhat pressured. Cervical range of motion is full. Lumbar mobility is restricted in extension and lateral flexion. Forward flexion is tolerated to approximately 50 degrees. He demonstrates some moderate impingement of the left hip. Internal and external rotation with flexion abduction causes increased discomfort. He had a positive Stinchfield. Tenderness in the hip flexors shortened hip flexors identified. He has some tightening in the hamstrings as well. There is no gross atrophy of the left extremity or the right extremity. The left knee reflexes diminished at 1+. 1+ ankle reflex on the left ankle. 2+ reflex right knee and 2+ reflex right ankle. No sensory change on the right side. On the left side he has some loss of vibration in the left L3 distribution. Weakness was additionally noted with abduction. He walks with a left Trendelenburg gait. Gait: left trandelenberg, asymmetric,. Able to perform tandem walk and heel/toe walk. Labs: Collection DT Spec WBC HGB HCT PLT K+/Pot Sodium HGBA1c 05/08/2023 08:47 BLOOD 5.2 05/08/2023 08:47 BLOOD 8.78 14.0 43.3 270 05/08/2023 08:47 SERUM 4.2 139 11/11/2022 07:51 SERUM 4.4 141 05/22/2022 07:34 SERUM 4.2 140 Collection DT Spec GLUCOSE CREATIN AST ALT T BILI ALK JORGE LUIS CHOL 05/08/2023 08:47 SERUM 92 1.02 19 38 0.7 74 203 H 11/11/2022 07:51 SERUM 91 1.05 19 38 0.7 61 214 H 05/22/2022 07:34 SERUM 95 1.14 17 34 1.0 68 197 11/15/2021 08:15 SERUM 97 1.06 20 40 0.7 62 187 05/17/2021 07:15 SERUM 93 1.05 20 36 0.6 63 193 Collection DT Spec LDL-c HDL TRIG TSH B12 SR- VIT D25 RBC/HPF 05/08/2023 08:47 SERUM 149 H 36 L 91 2.98 11/11/2022 07:51 SERUM 158 H 38 L 89 05/22/2022 07:34 SERUM 145 H 36 L 79 4.68 11/15/2021 08:15 SERUM 139 H 35 L 65 05/17/2021 07:15 SERUM 145 H 35 L 67 3.97 49 CHEM 7 TREND LAB CUMULATIVE SELECTED Collection DT Spec GLUCOSE BUN CREATIN Sodium K+/Pot CL CO2 05/08/2023 08:47 SERUM 92 28 H 1.02 139 4.2 104 26 11/11/2022 07:51 SERUM 91 24 1.05 141 4.4 104 26 05/22/2022 07:34 SERUM 95 21 1.14 140 4.2 104 27 11/15/2021 08:15 SERUM 97 19 1.06 139 4.0 105 26 05/17/2021 07:15 SERUM 93 25 1.05 138 4.5 103 25 LAB CUMULATIVE SELECTED 2 No selection items chosen for this component. CHEM 7 Results Collection DT Spec Sodium K+/Pot CL CO2 GLUCOSE BUN 05/08/2023 08:47 SERUM 139 4.2 104 26 92 28 H 11/11/2022 07:51 SERUM 141 4.4 104 26 91 24 05/22/2022 07:34 SERUM 140 4.2 104 27 95 21 11/15/2021 08:15 SERUM 139 4.0 105 26 97 19 05/17/2021 07:15 SERUM 138 4.5 103 25 93 25 05/02/2020 08:38 SERUM 137 4.2 102 27 101 H 19 08/11/2019 08:01 SERUM 20 09/17/2018 07:41 SERUM 140 4.4 104 27 102 H 18 03/31/2018 07:39 SERUM 138 4.3 105 27 12/03/2017 09:45 SERUM 139 4.2 105 26 92 19 09/11/2017 08:00 SERUM 139 4.6 104 27 100 21 06/25/2017 08:43 SERUM 140 4.6 105 26 93 20 06/01/2017 07:46 SERUM 140 4.7 104 30 95 21 11/15/2015 10:11 SERUM 141 4.6 106 29 100 21 02/20/2015 09:27 SERUM 142 4.8 105 29 97 19 12/22/2013 09:41 SERUM 143 4.6 106 27 96 21 02/22/2013 12:01 SERUM 140 4.5 105 25 97 17 11/15/2012 08:16 SERUM 140 4.6 105 27 100 23 07/12/2012 08:33 SERUM 138 4.4 105 24 86 23 03/18/2012 09:58 SERUM 140 4.5 106 24 100 H 16 05/23/2011 10:05 SERUM 139 4.6 105 23 92 22 02/01/2010 09:00 SERUM 140 4.2 109 23 94 24 Liver Function Tests Collection DT Spec AST ALT ALK JORGE LUIS ALBUMIN T BILI T. PROT 05/08/2023 08:47 SERUM 19 38 74 4.2 0.7 7.4 HEMOGLOBIN A1C TREND Collection DT Spec HGBA1c 05/08/2023 08:47 BLOOD 5.2 05/22/2022 07:34 BLOOD 5.2 05/17/2021 07:15 BLOOD 5.5 05/02/2020 08:38 BLOOD 5.6 09/17/2018 07:41 BLOOD 5.3 Diagnostic Studies:As above ASSESSMENT/PLAN: Patient is a 53-year-old [place] with fairly severe left leg pain in the L3 distribution. He has foraminal compression at L3 and L5 on the left. X-rays of the left hip were obtained to ensure that it is not referred pain from osteoarthritic change. There was no significant arthritic change within the left hip by x-ray on 09/17/2023. Pain is due to L3 nerve compression with some degree of L5. Secondary patellofemoral complaints also contributing to the left knee pain. He will continue to work on weight reduction as well as strengthening. His clinical examination did not support the knee as a primary issue. We will schedule for left L3 and left S1 transforaminal epidural. Follow-up 2 weeks thereafter. FOLLOW-UP:For left L3 and Left S1 TFe Potential risks and side effects of any medication(s) prescribed today was reviewed with [place]. Patient had many excellent questions, which I answered to the best of my ability and to patient's apparent satisfaction. MDM: 60 minutes which includes reviewing records, evaluating patient, [...] this [facility] (local) and dispensed from another [place] or [facility] facility (remote) as well as [...] with a VA or non-VA provider. Medication Reconciliation: Outpatient: Has the patient been taking medications as documented in the EMLR? YES: The patient has been taking medications as documented in the EMLR. Essential Medication List for Review used to complete this medication reconciliation. INCLUDED IN THIS LIST: Alphabetical list of active outpatient prescriptions dispensed from this [place] (local) and dispensed from another [place] or [facility] facility (remote) as well as inpatient [...] VA or non-VA provider. /dheeraj/ HUMAIRA PITTS [facility] Signed: 09/18/2023 14:15 HUMAIRA PITTS [place] [facility]
--- OUTSIDE RECORDS SUMMARY | 2024-08-18 10:05 | XMS_ITS | Encounter Summary ---
Author Name [facility] [facility] [place] Organization [facility] [place] Address [address] [place] [address] Care Team Providers Care Pond Supervisor Name Role Phone EHSAN OVALLES Primary [...] PART A December 08, 2013 PART A [id number] KONRADDENTONMartin DAMICOBRIGID Latnigua PATIENT MEDICARE (WNR) MEDICARE (M) PART A December 08, 2013 PART A [id number] [id number] [id number] BRIGID RAMOS PATIENT Selected Encounter This section includes the information on record at [place] for the Encounter. Date/Time Encounter Type Encounter Description Reason Pro vider Source Sep 25, 2023 12:25 PM Outpatient Encounter PAIN CLINIC IHE Encounter Template Text not used by [place] Plan of Treatment: Future Appointments (+ 6 months) and Future Tests (+/- 45 days) The Plan of Treatment section includes future care activities for the patient from all [place] treatmentfacilities. This section includes future appointments and future orders which are active, pending or scheduled. Future Appointments This section includes appointments that were scheduled to occur 6 months from the date of the Encounter, up to a maximum of 20 appointments. The data comes from all [place] treatment facilities. Appointment Date/Time Appointment Type Appointme nt Facility Name Sep 29, 2023 10:00 AM AMBULATORY - MEDICINE [place] [facility] [place] [facility] Sep 30, 2023 10:00 AM AMBULATORY - [facility]ICIN [facility] [place] [facility] Oct 21, 2023 11:45 AM AMBULATORY - MEDICINE [facility] [place] [facility] Nov 05, 2023 01:00 PM AMBULATORY - REHAB MEDICIN E [facility] [place] [facility] Nov 11, 2023 10:00 AM AMBULATORY - MEDICINE [facility] [place] [facility] Nov 24, 2023 09:30 AM AMBULATORY - MEDICINE [place] [facility] [place] [facility] Nov 26, 2023 10:30 AM AM[place]UL[place]ORY - [place] Dec 01, 2023 09:45 AM AMBULATORY - MEDICINE [place] [facility] [place] [facility] Dec 01, 2023 03:30 PM AMBULATORY - [place]IN [place] Dec 08, 2023 09:00 AM AMBULATORY - [place]IN [place] January 05, 2024 01:00 PM AMBULATORY - REH[facility]IN [facility] [place] [facility] Jan 15, 2024 09:30 AM AMBULATORY - [place] MED[facility]IN [place] Feb 23, 2024 09:00 AM AMBULATORY - MEDICINE [place] [facility] [place] [facility] Feb 25, 2024 01:00 PM AMBULATORY - [facility]IN [facility] [place] [facility] Mar 21, 2024 10:00 AM AMBULATORY - MEDICINE [place] [facility] [place] [facility] Mar 24, 2024 01:00 PM AMBULATORY - MEDICINE [place] [facility] [place] [facility] Social History: Smoking Status (Most [...] 12, 2023 10:46 AM VA-TOBACCO NEVER USED [place] [facility] [place] [facility] Tobacco Use History This section includes a history of the smoking, or tobacco-related health factors, that were collected on or before the date of the Encounter. The data comes from the [place] facility where the Encounter took place. Date/Time Smoking Status/Tobacco Use Comment Trisha renae Oct 20, 2015 10:30 AM LIFETIME NON-TOBACCO USER [facility] Sep 19, 2009 11:13 AM LIFETIME NON-TOBACCO USER [facility] Advance Directives: All historical and current [...] Mar 22, 2018 ADVANCE DIRECTIVE JASWANT DICKINSON [facility] Radiology Reports: +/- 30 days [...] the Encounter. The data comes from all [place] treatment facilities. Date/Time Radiology Report Provider Source Sep 30, 2023 10:26 AM FLUOROSCOPIC [place] NCE OF NEEDLE/SPINE: ODILIAKARLYCOLBY [id number] -1970 M Ex Date: SEP 30, 2023@10:26 Req Phys: YAIR FALCON Pat Loc: C[facility]/NO/MED REHAB/SPINE INJ (Re Img Loc: [facility] 1 Service: Unknown (Case [id number] COMPLETE) FLUOROSCOPIC GUIDANCE OF NEEDLE/S(RAD Detailed) CPT:99472 Reason for Study: transforaminal epidural steroid injection Clinical History: Report Status: Verified Date Reported: SEP 30, 2023 Date Verified: SEP 30, 2023 [facility] Psychiatrist E-Sig:/ES/GREG OLIVIER JR Report: Study: Pain injection [...] Primary Interpreting Staff: GREG OLIVIER JR, Radiologist ([facility] Facility Psychiatrist) /GREG GAITAN JR [facility] Sep 17, 2023 10:53 AM SPINE LUMBOSACRAL MIN 4 VIEWS: COLBY HARTLEY [id number] -1970 M Exm Date: SEP 17, 2023@10:53 Req Phys: HUMAIRA PITTS Loc: CWM/NO/MEDICAL REHAB B (Req'g Img Loc: [facility] 1 Service: Unknown (Case [id number] COMPLETE) SPINE LUMBOSACRAL MIN 4 VIEWS (RAD Detailed) CPT:78010 Reason for Study: back pain with L3 left radiculopathy Clinical History: Report Status: Verified Date Reported: SEP 17, 2023 Date Verified: SEP 17, 2023 [facility] Psychiatrist E-Sig:/ES/GREG OLIVIER JR Report: Study: AP and [...] Primary Interpreting Staff: GREG OLIVIER JR, Radiologist ([facility] Facility Psychiatrist) /GREG GAITAN JR [facility] Sep 17, 2023 10:35 AM HIP 2-3 VIEWS(LEFT ) WITH OR WITHOUT PELVIS: COLBY HARTLEY [id number] -1970 M Exm Date: SEP 17, 2023@10:35 Req Phys: HUMAIRA PITTS Pat Loc: CWM/NO/MEDICAL REHAB B (Req'g Img Loc: [facility] 1 Service: Unknown (Case [id number] COMPLETE) HIP 2-3 VIEWS(LEFT) WITH OR WITHO(RAD Detailed) CPT:70052 CPT Modifiers : LT LEFT SIDE Reason for Study: pain left hip referred to knee Clinical History: Report Status: Verified Date Reported: SEP 17, 2023 Date Verified: SEP 17, 2023 [facility] Psychiatrist E-Sig:/ES/GREG OLIVIER JR Report: Study: AP view [...] Primary Interpreting Staff: GREG OLIVIER JR, Radiologist (Correctional Facility Psychiatrist) /GREG GAITAN JR [facility] Encounter Notes: All associated encounter notes This section contains the clinical notes associated to the Encounter. Date/Time Encounter Note(s) Provider Source Sep 25, 2023 12:25 PM TELEPHONE ENCOUNTE R NOTE: LOCAL TITLE: TELEPHONE NOTE/SPECIALTY CLINIC STANDARD TITLE: TELEPHONE ENCOUNTER NOTE DATE OF NOTE: SEP 25, 2023@12:25 ENTRY DATE: SEP 25, 2023@12:25:33 AUTHOR: STALIN VIGIL EXP COSIGNER: URGENCY: STATUS: COMPLETED Called and spoke with pt to remind them that they have a VVC appt with the Pain clinic on 09/29/2023 @ 10am. /dheeraj/ STALIN VIGIL ADVANCED WHEELCHAIR RENTAL CLERK Signed: 09/25/2023 12:26 STALIN VIGIL [facility]
--- OUTSIDE RECORDS SUMMARY | 2024-08-18 10:05 | XMS_ITS ---
Author Name [facility] [place] Organization [facility] [place] [facility] [place] Address [address] [place] [address] Care Team Providers Care Human Resources Operations Specialist Name Role Phone EHSAN OVALLES Primary Care [...] PART A December 08, 2013 PART A [id number] [phone] KONRADDENTONMartin BRIGID DAMICO PATIENT MEDICARE (WNR) MEDICARE (M) PART A December 08, 2013 PART A [id number] [id number] BRIGID RAMOS PATIENT Selected Encounter This section includes the information on record at [place] for the Encounter. Date/Time Encounter Type Encounter Description Reason Pro vider Source Sep 15, 2023 11:57 AM Outpatient Encounter PAIN CLINIC IHE Encounter Template Text not used by [place] Plan of Treatment: Future Appointments (+ 6 [...] - MEDICINE [facility] [place] [facility] Sep 17, 2023 09:30 AM AMBULATORY - REHAB MEDICIN [place] [facility] [place] [facility] Sep 17, 2023 10:26 AM AMBULATORY - NONE [facility] [place] [facility] Sep 21, 2023 09:15 AM AMBULATORY - MEDICINE [facility] [place] [facility] Sep 29, 2023 10:00 AM AMBULATORY - MEDICINE [facility] [place] [facility] Sep 30, 2023 10:00 AM AMBULATORY - REHAB MEDICIN E [facility] [place] [facility] Oct 21, 2023 11:45 AM AMBULATORY - MEDICINE [facility] [place] [facility] Nov 05, 2023 01:00 PM AMBULATORY - REHAB MEDICIN E [facility] [place] [facility] Nov 11, 2023 10:00 AM AMBULATORY - MEDICINE [facility] [place] [facility] Nov 24, 2023 09:30 AM AMBULATORY - MEDICINE [facility] [place] [facility] Nov 26, 2023 10:30 AM AMBULATORY - RE[place]IN [place] Dec 01, 2023 09:45 AM AMBULATORY - MEDICINE [facility] [place] [facility] Dec 01, 2023 03:30 PM AMBULATORY - REHAB MEDICIN E [place] Dec 08, 2023 09:00 AM AMBULATORY - RE[place]AB MEDICIN [place] January 05, 2024 01:00 PM AMBULATORY - REHAB MEDICIN E [facility] [place] [facility] Jan 15, 2024 09:30 AM AMBULATORY - REHAB MEDICIN E [place] Feb 23, 2024 09:00 AM AMBULATORY - MEDICINE [facility] [place] [facility] Feb 25, 2024 01:00 PM AMBULATORY - REHAB MEDICIN E [facility] [place] [facility] Social History: Smoking Status (Most current) and Tobacco Use (All prior to encounter date) This section includes the most current, and the historical, smoking and tobacco- related health factors from the [place] facility where the Encounter took place. Current Smoking Status This section includes the most current smoking, or tobacco-related health factor, from the [place] facility where the Encounter took place. Date/Time Current Smoking Status Comment Jose dcy May 12, 2023 10:46 AM [place]-TOBACCO NEVER USED [facility] Tobacco Use History This section includes a history of the smoking, or tobacco-related health factors, that were collected on or before the date of the Encounter. The data comes from the [place] facility where the Encounter took place. Date/Time Smoking Status/Tobacco Use Comment F acility Oct 20, 2015 10:30 AM LIFETIME NON-TOBACCO USER [facility] Sep 19, 2009 11:13 AM LIFETIME NON-TOBACCO USER [facility] Advance Directives: All historical and current Section Date Range: From patient's date of to the date document was created. This section includes ALL of a patient's completed or amended [place] Advance and Rescinded Directives. The entries below indicate that a directive exists for the patient, but an actual copy is not included with this document. The data comes from all [place] facilities. Date Advance Directives Provider Source Mar 22, 2018 ADVANCE DIRECTIVE JASWANT DICKINSON [facility] Radiology Reports: +/- 30 days [...] the Encounter. The data comes from all [place] treatment facilities. Date/Time Radiology Report Provider Source Sep 30, 2023 10:26 AM FLUOROSCOPIC [place] NCE OF NEEDLE/SPINE: ODILIACOLBY [id number] -1970 M Ex Date: SEP 30, 2023@10:26 Req Phys: YAIR FALCON Loc: CWM/NO/MED REHAB/SPINE INJ (Re Img Loc: [facility] 1 Service: Unknown (Case 100 COMPLETE) FLUOROSCOPIC GUIDANCE OF NEEDLE/S(RAD Detailed) CPT:98342 Reason for Study: transforaminal epidural steroid injection Clinical History: Report Status: Verified Date Reported: SEP 30, 2023 Date Verified: SEP 30, 2023 Chief Architect E-Sig:/ES/GREG OLIVIER JR Report: Study: Pain injection [...] Primary Interpreting Staff: GREG OLIVIER JR, Radiologist (Chief Architect) /GREG GAITAN JR [facility] Sep 17, 2023 10:53 AM SPINE LUMBOSACRAL MIN 4 VIEWS: COLBY HARTLEY [id number] -1970 M Ex Date: SEP 17, 2023@10:53 Req Phys: HUMAIRA PITTS Loc: CWM/NO/MEDICAL REHAB B (Req'g Img Loc: [facility] 1 Service: Unknown (Case [id number] COMPLETE) SPINE LUMBOSACRAL MIN 4 VIEWS (RAD Detailed) CPT:48770 Reason for Study: back pain with L3 left radiculopathy Clinical History: Report Status: Verified Date Reported: SEP 17, 2023 Date Verified: SEP 17, 2023 Chief Architect E-Sig:/DHEERAJ/GREG OLIVIER JR Report: Study: AP and lateral [...] Primary Interpreting Staff: GREG OLIVIER JR, Radiologist (Chief Architect) /[facility] GAITAN JR [facility] Sep 17, 2023 10:35 AM HIP 2-3 VIEWS(LEFT ) WITH OR WITHOUT PELVIS: COLBY HARTLEY [id number] -1970 M Exm Date: SEP 17, 2023@10:35 Req Phys: HUMAIRA PITTS Loc: CWM/NO/MEDICAL REHAB B (Req'g Img Loc: [facility] 1 Service: Unknown (Case 255 COMPLETE) HIP 2-3 VIEWS(LEFT) WITH OR WITHO(RAD Detailed) CPT:90931 CPT Modifiers : LT LEFT SIDE Reason for Study: pain left hip referred to knee Clinical History: Report Status: Verified Date Reported: SEP 17, 2023 Date Verified: SEP 17, 2023 Chief Architect E-Sig:/ES/GREG OLIVIER JR Report: Study: AP view [...] Primary Interpreting Staff: GREG OLIVIER JR, Radiologist (Chief Architect) /GREG GAITAN JR [facility] Encounter Notes: All associated encounter notes This section contains the clinical notes associated to the Encounter. Date/Time Encounter Note(s) Provider Source Sep 15, 2023 11:57 AM TELEPHONE ENCOUNTE R NOTE: LOCAL TITLE: TELEPHONE NOTE/SPECIALTY CLINIC STANDARD TITLE: TELEPHONE ENCOUNTER NOTE DATE OF NOTE: SEP 15, 2023@11:57 ENTRY DATE: SEP 15, 2023@11:57:28 AUTHOR: STALIN VIGIL EXP COSIGNER: URGENCY: STATUS: COMPLETED TELEPHONE NOTE/SPECIALTY CLINIC Has ADDENDA Talked with vet to confirm VVC appt and vet asked to switch to F2F with Dr. Joshua 09/16/2023 @ 9am. /dheeraj/ STALIN VIGIL ADVANCED WIRE INSERTER Signed: 09/15/2023 11:58 Receipt Acknowledged By: 09/15/2023 13:05 /es/ Benja Joshua MD STAFF PHYSICIAN 09/15/2023 ADDENDUM STATUS: COMPLETED ok for visit to be f2f. /dheeraj/ Benja Joshua MD STAFF PHYSICIAN Signed: 09/15/2023 13:05 STALIN VIGIL [facility]
--- OUTSIDE RECORDS SUMMARY | 2024-08-18 10:05 | XMS_ITS | Encounter Summary ---
Author Name [facility] [place] [facility] [place] [facility] [place] Address [address] [place] [address] Care Team Providers Care Slider Assembler Name Role Phone EHSAN OVALLES Primary [...] PART A December 08, 2013 PART A [id number] [phone] BRIGID RAMOS PATIENT MEDICARE (WNR) MEDICARE (M) PART A December 08, 2013 PART A [id number] [phone] GARRICK DAMICOBRIGID PATIENT Selected Encounter This section includes the information on record at [place] for the Encounter. Date/Time Encounter Type Encounter Description Reason Provider Source Sep 29, 2023 10:00 AM OFFICE O/P EST HI 40 MIN PAIN CLINIC ICD-10-CM G89.29 Other chronic pain Silvestre SANDERSON B IHE Encounter Template Text not used by [place] Assessments - Encounter Diagnoses This section includes the primary and secondary diagnoses documented for the Encounter. Date/Time Primary/Secondary Diagnosis Diagnosis Name Provider Source May 19, 2024 08:30 PM PRIMARY Other chronic pain ADRIENNE BERNSTEIN [facility] Plan of Treatment: Future Appointments (+ 6 months) and Future Tests (+/- 45 days) The Plan of Treatment section includes future care activities for the patient from [facility] [place] [facility] This section includes future appointments and future orders which are active, pending or scheduled. Future Appointments This section includes appointments that were scheduled to occur 6 months from the date of the Encounter, up to a maximum of 20 appointments. The data comes from all [facility] facilities. Appointment Date/Time Appointment Type Appointme nt Facility Name Sep 30, 2023 10:00 AM AMBULATORY - [facility] [place] [facility] Oct 21, 2023 11:45 AM AMBULATORY - MEDICINE [place] [facility] [place] [facility] Nov 05, 2023 01:00 PM AMBULATORY - REHAB MEDICIN E [facility] [place] [facility] Nov 11, 2023 10:00 AM AMBULATORY - MEDICINE [place] [facility] [place] [facility] Nov 24, 2023 09:30 AM AMBULATORY - MEDICINE [place] [facility] [place] [facility] Nov 26, 2023 10:30 AM AMBULATORY - REHAB MEDICIN E [place] Dec 01, 2023 09:45 AM AMBULATORY - MEDICINE [place] [facility] [place] [facility] Dec 01, 2023 03:30 PM AMBULATORY - REHAB MEDICIN E [place] Dec 08, 2023 09:00 AM AMBULATORY - REHAB MEDICIN E [place] January 05, 2024 01:00 PM AMBULATORY - REHAB MEDICIN E [place] [facility] [place] [facility] Jan 15, 2024 09:30 AM AMBULATORY - REHAB MEDICIN E [place] Feb 23, 2024 09:00 AM AMBULATORY - MEDICINE [place] [facility] [place] [facility] Feb 25, 2024 01:00 PM AMBULATORY - REHAB MEDICIN E [place] [facility] [place] [facility] Mar 21, 2024 10:00 AM AMBULATORY - MEDICINE [place] [facility] [place] [facility] Mar 24, 2024 01:00 PM AMBULATORY - MEDICINE [place] [facility] [place] [facility] Social History: Smoking Status (Most current) and Tobacco Use (All prior to encounter date) This section includes the most current, and the historical, smoking and tobacco- related health factors from the [place] facility where the Encounter took place. Current Smoking Status This section includes the most current smoking, or tobacco-related health factor, from the [place] facility where the Encounter took place. Date/Time Current Smoking Status Comment Jose armstrong May 12, 2023 10:46 AM VA-TOBACCO NEVER USED [facility] Tobacco Use History This section includes a history of the smoking, or tobacco-related health factors, that were collected on or before the date of the Encounter. The data comes from the [place] facility where the Encounter took place. Date/Time Smoking Status/Tobacco Use Comment Trisha acyonatan Oct 20, 2015 10:30 AM LIFETIME NON-TOBACCO USER [facility] Sep 19, 2009 11:13 AM LIFETIME NON-TOBACCO USER [facility] Advance Directives: All historical and current Section Date Range: From patient's date of to the date document was created. This section includes ALL of a patient's completed or amended [place] Advance and Rescinded Directives. The entries below indicate that a directive exists for the patient, but an actual copy is not included with this document. The data comes from all [place] facilities. Date Advance Directives Provider Source Mar 22, 2018 ADVANCE DIRECTIVE TEENAJASWANT CABEZASEST [facility] Radiology Reports: +/- 30 days of [...] the Encounter. The data comes from all [place] treatment facilities. Date/Time Radiology Report Provider Source Sep 30, 2023 10:26 AM FLUOROSCOPIC [place] NCE OF NEEDLE/SPINE: COLBY AHRTLEY [id number] -1970 M Exm Date: SEP 30, 2023@10:26 Req Phys: YAIR FALCON Loc: CWM/NO/MED REHAB/SPINE INJ (Re Img Loc: [facility]BUILD[facility] 1 Service: Unknown (Case [id number] COMPLETE) FLUOROSCOPIC GUIDANCE OF NEEDLE/S(RAD Detailed) CPT:90749 Reason for Study: transforaminal epidural steroid injection Clinical History: Report Status: Verified Date Reported: SEP 30, 2023 Date Verified: SEP 30, 2023 Rags Laborer E-Sig:/ES/GREG OLIVIER JR Report: Study: Pain injection [...] Primary Interpreting Staff: GREG OLIVIER JR, Radiologist (Rags Laborer) /GREG GAITAN JR [facility] Sep 17, 2023 10:53 AM SPINE LUMBOSACRAL MIN 4 VIEWS: COLBY HARTLEY [id number] -1970 M Exm Date: SEP 17, 2023@10:53 Req Phys: HUMAIRA PITTS Loc: CWM/NO/MEDICAL REHAB B (Req'g Img Loc: [facility]/BUILDING 1 Service: Unknown (Case [id number] COMPLETE) SPINE LUMBOSACRAL MIN 4 VIEWS (RAD Detailed) CPT:73752 Reason for Study: back pain with L3 left radiculopathy Clinical History: Report Status: Verified Date Reported: SEP 17, 2023 Date Verified: SEP 17, 2023 Rags Laborer E-Sig:/DHEERAJ/GREG OLIVIER JR Report: Study: AP and [...] Primary Interpreting Staff: GREG OLIVIER JR, Radiologist (Rags Laborer) /GREG GAITAN JR [facility] Sep 17, 2023 10:35 AM HIP 2-3 VIEWS(LEFT ) WITH OR WITHOUT PELVIS: COLBY HARTLEY [id number] -1970 M Exm Date: SEP 17, 2023@10:35 Req Phys: HUMAIRA PITTS Loc: CWM/NO/MEDICAL REHAB B (Req'g Img Loc: [facility]/BUILD[facility] 1 Service: Unknown (Case [id number] COMPLETE) HIP 2-3 VIEWS(LEFT) WITH OR WITHO(RAD Detailed) CPT:90266 CPT Modifiers : LT LEFT SIDE Reason for Study: pain left hip referred to knee Clinical History: Report Status: Verified Date Reported: SEP 17, 2023 Date Verified: SEP 17, 2023 Rags Laborer E-Sig:/DHEERAJ/GREG OLIVIER JR Report: Study: AP view of [...] Primary Interpreting Staff: GREG OLIVIER JR, Radiologist (Rags Laborer) /GREG GAITAN JR [facility] Encounter Notes: All associated encounter notes This section contains the clinical notes associated to the Encounter. Date/Time Encounter Note(s) Provider Source Sep 29, 2023 08:10 PM PAIN CONSULT: LOCAL TITLE: CONSULT REPORT/EMPOWERED RELIEF NOTE STANDARD TITLE: PAIN CONSULT DATE OF NOTE: SEP 29, 2023@20:10 ENTRY DATE: SEP 29, 2023@20:10:34 AUTHOR: ADRIENNE BERNSTEIN EXP COSIGNER: URGENCY: STATUS: COMPLETED attended class this date, please see Empowered Relief Session Note for full details. /eileen BERNSTEIN DPT PHYSICAL THERAPIST Signed: 09/29/2023 20:12 ADRIENNE BERSNTEIN [facility] Sep 29, 2023 04:30 PM PAIN NOTE: LOCAL TITLE: EMPOWERED RELIEF SESSION NOTE STANDARD TITLE: PAIN NOTE DATE OF NOTE: SEP 29, 2023@16:30 ENTRY DATE: SEP 29, 2023@19:33:55 AUTHOR: ADRIENNE BERNSTEIN EXP COSIGNER: URGENCY: STATUS: COMPLETED EMPOWERED RELIEF SESSION NOTE Has ADDENDA Empowered Relief Pain Education Class Provider/s facilitating todays session: MD Adrienne Darling, PT, DPT Number of Veterans in attendance for todays session: 6 Length of session: 120 minutes = [place] participated in Empowered Relief Pain Education Class via VVC. The [place] was provided with information on VVC and has given verbal consent to use group VVC services for their healthcare. The copy of the Group Telehealth Agreement was mailed to the . The 's location/emergency contact number were confirmed. The Emergency Call Relay Center (E911) was available. The visit was locked for security and privacy. [place] identified with 2 identifiers: [x] Full Name [x] Address = [place] confirmed their willingness and interest in attending this Empowered Relief group class. [place] has acknowledged awareness and acceptance of: 1. The privacy restraints regarding participation in group sessions. 2. The need for respectful behavior toward other participants and providers. 3. The need to focus discussion to specific topics discussed during the session. = Summary of Empowered Relief: [place] attended Empowered Relief - Train Your Brain Away From Pain - a single session evidence- and skill-based class. During the class, learned the following skills: 1. How pain is processed in the brain and how to best manage it. 2. How to use a guided relaxation exercise to reduce the pain and stress response. [place] provided with a binaural audiofile with a guided relaxation exercise. was encouraged to practice this relaxation exercise daily for at least 2 months (can taper to less frequently afterwards). 3. How to counteract their unhelpful pain thoughts, which can worsen pain, by practicing positive or neutral thought reframing. 4. How to develop and utilize a list of self-soothing actions which can be used to interrupt negative pain thoughts and the pain response. At the end of the class, created their own Personalized Plan for pain relief which included the following items: 1) how often they will use the guided relaxation exercise, 2) a list of their most significant unhelpful pain thoughts and then a reframe of these unhelpful pain thoughts using the best friend talk technique and 3) a list of positive self-soothing actions which are used to interrupt the pain response. Additional comments: Maksim remained on the call for the entire session. He kept his camera off and did not actively engage with facilitators. He did not offer any questions or feedback. /dheeraj/ ADRIENNE BERNSTEIN DPT PHYSICAL THERAPIST Signed: 09/29/2023 20:07 09/29/2023 ADDENDUM STATUS: COMPLETED Assessments were sent to the via text/email. These assessments were completed by COLBY HARTLEY II on their own device on 09/29/2023 11:49:40 AM. PAIN, ENJOYMENT OF LIFE AND GENERAL ACTIVITY (PEG) Patient rated the following on a scale from 0 to 10, over the past week: 1. Average pain (0=No pain - 10=Pain as bad as you can imagine): 9 2. Pain interference with enjoyment of life (0=Does not interfere - 10=Completely Interferes): 10 3. Pain interference with general activity (0=Does not interfere - 10=Completely Interferes): 10 PEG Average Score: 10 Scores are an average of the 3 items and range from 0 to 10. Higher scores represent worse pain. /dheeraj/ ADRIENNE BERNSTEIN DPT PHYSICAL THERAPIST Signed: 09/29/2023 20:12 ADRIENNE BERNSTEIN [facility]
--- OUTSIDE RECORDS SUMMARY | 2024-08-18 10:05 | XMS_ITS ---
Author Name [facility] [place] Organization [place] Address [address] [place] [address] Care Team Providers Care Fundraising Coordinator Name Role Phone EHSAN OVALLES Primary [...] PART A December 08, 2013 PART A [id number] [phone] BRIGID RAMOS PATIENT MEDICARE (WNR) MEDICARE (M) PART A December 08, 2013 PART A [id number] [phone] BRIGID RAMOS PATIENT Selected Encounter This section includes the information on record at [place] for the Encounter. Date/Time Encounter Type Encounter Description Reason Provider Source Sep 16, 2023 09:00 AM OFFICE O/P EST MOD 30 MIN PAIN CLINIC ICD-10-CM M54.50 Low back pain, unspecified BENJA TIPTON Martin Encounter Template Text not used by [place] Assessments - Encounter Diagnoses This section includes the primary and secondary diagnoses documented for the Encounter. Date/Time Primary/Secondary Diagnosis Diagnosis Name Provider Source Sep 16, 2023 09:28 AM PRIMARY Low back pain, unspecified BENJA TIPTON [facility] [place] [facility] Sep 16, 2023 09:28 AM SECONDARY Other obesity BENJA TIPTON [facility] [place] [facility] Sep 16, 2023 09:28 AM SECONDARY Pain in left knee BENJA TIPTON [facility] [place] [facility] Plan of Treatment: Future Appointments (+ 6 months) and Future Tests (+/- 45 days) The Plan of Treatment section includes future care activities for the [facility] [place] [facility] This section includes future appointments and future orders which are active, pending or scheduled. Future Appointments This section includes appointments that were scheduled to occur 6 months from the date of the Encounter, up to a maximum of 20 appointments. The data comes from all [place] treatment facilities. Appointment Date/Time Appointment Type Appointme nt Facility Name Sep 17, 2023 09:30 AM AMBULATORY - REHAB MEDICIN E [facility] [place] [facility] Sep 17, 2023 10:26 AM AMBULATORY - NONE [facility] [place] [facility] Sep 21, 2023 09:15 AM AMBULATORY - MEDICINE [place] [facility] [place] [facility] Sep 29, 2023 10:00 AM AMBULATORY - MEDICINE [place] [facility] [place] [facility] Sep 30, 2023 10:00 AM AMBULATORY - REHAB MEDICIN E [facility] [place] [facility] Oct 21, 2023 11:45 AM AMBULATORY - MEDICINE [place] [facility] [place] [facility] Nov 05, 2023 01:00 PM AMBULATORY - REHAB MEDICIN E [facility] [place] [facility] Nov 11, 2023 10:00 AM AMBULATORY - MEDICINE [place] [facility] [place] [facility] Nov 24, 2023 09:30 AM AMBULATORY - MEDICINE [place] [facility] [place] [facility] Nov 26, 2023 10:30 AM AMBULATORY - RE[place]ICIN [place] Dec 01, 2023 09:45 AM AMBULATORY - MEDICINE [place] [facility] [place] [facility] Dec 01, 2023 03:30 PM AMBULATORY - REHAB MEDICIN E [place] Dec 08, 2023 09:00 AM AMBULATORY - REHAB MEDICIN E [place] January 05, 2024 01:00 PM AMBULATORY - REHAB MEDICIN E [facility] [place] [facility] Jan 15, 2024 09:30 AM AMBULATORY - REHAB MEDICIN E [place] Feb 23, 2024 09:00 AM AMBULATORY - MEDICINE [facility] Feb 25, 2024 01:00 PM [facility] Social History: Smoking Status (Most [...] 12, 2023 10:46 AM VA-TOBACCO NEVER USED [facility] Tobacco Use History This section includes a history of the smoking, or tobacco-related health factors, that were collected on or before the date of the Encounter. The data comes from the [place] facility where the Encounter took place. Date/Time Smoking Status/Tobacco Use Comment F acility Oct 20, 2015 10:30 AM [facility] Sep 19, 2009 11:13 AM LIFETIME NON-TOBACCO USER [facility] Advance Directives: All historical and current [...] Mar 22, 2018 ADVANCE DIRECTIVE JASWANT DICKINSON [facility] Radiology Reports: +/- 30 days of the [...] FLUOROSCOPIC [place] NCE OF NEEDLE/SPINE: COLBY HARTLEY [id number] -1970 M Exm Date: SEP 30, 2023@10:26 Req Phys: YAIR FALCON Bety Loc: CWM/NO/MED REHAB/SPINE INJ (Re Img Loc: [facility]/BUILD[facility] 1 Service: Unknown (Case 100 COMPLETE) FLUOROSCOPIC GUIDANCE OF NEEDLE/S(RAD Detailed) CPT:96595 Reason for Study: transforaminal epidural steroid injection Clinical History: Report Status: Verified Date Reported: SEP 30, 2023 Date Verified: SEP 30, 2023 Cancer Program Coordinator E-Sig:/ES/GREG OLIVIER JR Report: Study: Pain injection [...] Primary Interpreting Staff: GREG OLIVIER JR, Radiologist (Cancer Program Coordinator) /GREG GAITAN JR [facility] Sep 17, 2023 10:53 AM SPINE LUMBOSACRAL MIN 4 VIEWS: COLBY HARTLEY [id number] -1970 M Exm Date: SEP 17, 2023@10:53 Req Phys: HUMAIRA PITTS Pat Loc: CWM/NO/MEDICAL REHAB B (Req'g Img Loc: [facility] 1 Service: Unknown (Case [id number] COMPLETE) SPINE LUMBOSACRAL MIN 4 VIEWS (RAD Detailed) CPT:82420 Reason for Study: back pain with L3 left radiculopathy Clinical History: Report Status: Verified Date Reported: SEP 17, 2023 Date Verified: SEP 17, 2023 Cancer Program Coordinator E-Sig:/ES/GREG OLIVIER JR Report: Study: AP and [...] Primary Interpreting Staff: GREG OLIVIER JR, Radiologist (Cancer Program Coordinator) /GREG GAITAN JR [facility] Sep 17, 2023 10:35 AM HIP 2-3 VIEWS(LEFT ) WITH OR WITHOUT PELVIS: COLBY HARTLEY [id number] -1970 M Ex Date: SEP 17, 2023@10:35 Req Phys: HUMAIRA PITTS Loc: CWM/NO/MEDICAL REHAB B (Req'g Img Loc: [facility] 1 Service: Unknown (Case 255 COMPLETE) HIP 2-3 VIEWS(LEFT) WITH OR WITHO(RAD Detailed) CPT:47303 CPT Modifiers : LT LEFT SIDE Reason for Study: pain left hip referred to knee Clinical History: Report Status: Verified Date Reported: SEP 17, 2023 Date Verified: SEP 17, 2023 Cancer Program Coordinator E-Sig:/ES/GREG OLIVIER JR Report: Study: AP view [...] Primary Interpreting Staff: GREG OLIVIER JR, Radiologist (Cancer Program Coordinator) /GREG GAITAN JR [facility] Encounter Notes: All associated encounter notes This section contains the clinical notes associated to the Encounter. Date/Time Encounter Note(s) Provider Source Sep 16, 2023 08:54 AM ACCOUNTING OF DISCLOSURES NOTE: LOCAL TITLE: STATE PRESCRIPTION DRUG MONITORING PROGRAM STANDARD TITLE: ACCOUNTING OF DISCLOSURES NOTE DATE OF NOTE: SEP 16, 2023@08:54:20 ENTRY DATE: SEP 16, 2023@08:54:20 AUTHOR: BENJA TIPTON EXP COSIGNER: URGENCY: STATUS: COMPLETED This PDMP query was submitted by Benja Tipton MD. The clinical justification for this PDMP query is to review controlled substances prescribed outside of the [facility], and any additional information that may become available, as an important component of standard clinical care, and in accordance with [facility] policy. Patient information was shared with the PDMP Appriss [place]. No prescription(s) for controlled substances outside the [facility] were found in the last 90 days. /dheeraj/ Benja Tipton MD STAFF PHYSICIAN Signed: 09/16/2023 08:54 BENJA TIPTON [facility] [place] [facility] Sep 16, 2023 08:49 AM PAIN MEDICINE OUTPATIENT NOTE: LOCAL TITLE: PAIN CLINIC NOTE STANDARD TITLE: PAIN MEDICINE OUTPATIENT NOTE DATE OF NOTE: SEP 16, 2023@08:49 ENTRY DATE: SEP 16, 2023@08:49:14 AUTHOR: BENJA TIPTON EXP COSIGNER: URGENCY: STATUS: COMPLETED Presents for in person pain clinic follow up. He reports his new chiropractor is amazing. Has had 4 visits. With each visit there seems to be a longer break in the pain. Will be resuming acupuncture next week and he is looking forward to that. The pain is still in area of left lateral knee, but he now notices it tracking back up the thigh to the buttock and left lower back. He has a few days per week when the pain is not highly bothersome now. He is tolerating belbuca and seems to be getting better pain relief than from [place] which caused a rash. Plans to do empowered relief class, received packet in mail. He notes that he never declined to do PT; says he did not receive the phone message and letter which were supposedly sent. He would like to do it now. He is looking forward to physiatry evaluation tomorrow. He says he can now see a light at the end of the tunnel. Active Outpatient Medications Status 1) ACETAMINOPHEN 500MG TAB TAKE TWO TABLETS BY MOUTH ACTIVE THREE TIMES DAILY NEEDED FOR PAIN 2) ALBUTEROL 90MCG (CFC-F) 200D ORAL INHL INHALE 2 PUFFS ACTIVE BY MOUTH FOUR TIMES DAILY NEEDED FOR SHORTNESS OF BREATH 3) BUPRENORPHINE 300MCG BUCCAL FILM PLACE ONE FILM ACTIVE BETWEEN CHEEK AND GUM UNTIL DISSOLVED EVERY 12 HOURS FOR PAIN -- tolerating well. 4) CHOLECALCIF 50MCG (D3-2,000UNIT) TAB TAKE TWO TABLETS ACTIVE BY MOUTH EVERY DAY FOR VITAMIN SUPPLEMENTATION 5) CLOMIPHENE CITRATE 50MG TAB TAKE ONE-HALF TABLET BY ACTIVE MOUTH ONCE DAILY 6) DICLOFENAC NA 1% TOP GEL APPLY 4 GRAMS TOPICALLY FOUR ACTIVE TIMES A DAY FOR OSTEOARTHRITIS - USE DOSING CARD PROVIDED IN BOX 7) FLUTICAS 500/SALMETEROL 50 INHL DISK 60 INHALE 1 PUFF ACTIVE BY MOUTH TWICE DAILY - RINSE MOUTH AFTER USE 8) LIDOCAINE 5% OINT APPLY THIN LAYER TOPICALLY TWICE ACTIVE DAILY TO THREE TIMES A DAY NEEDED FOR MINOR SKIN WOUND PAIN 9) LOSARTAN 100MG TAB TAKE ONE TABLET BY MOUTH ONCE ACTIVE DAILY FOR BLOOD PRESSURE/HEART 10) NAPROXEN 500MG TAB TAKE ONE TABLET BY MOUTH TWICE ACTIVE DAILY TAKE WITH FOOD -- taking 11) OMEPRAZOLE 20MG EC CAP TAKE ONE CAPSULE BY MOUTH ACTIVE TWICE DAILY 12) OXYCODONE HCL 5MG TAB NOT SA TAKE TWO TABLETS ACTIVE BY MOUTH TWICE DAILY NEEDED FOR PAIN NOT FOR USE EVERY DAY (NEXT FILL 10/08/23) 13) PRAZOSIN HCL 1MG CAP TAKE THREE CAPSULES BY MOUTH AT ACTIVE BEDTIME TAKE DOSE AT 11 PM. 14) PREGABALIN 100MG ORAL CAP TAKE ONE CAPSULE BY MOUTH ACTIVE TWICE DAILY FOR PAIN -- taking, might be helpful. 15) SILDENAFIL CITRATE 100MG TAB TAKE ONE TABLET BY MOUTH ACTIVE ONCE DAILY NEEDED TAKE 1 HOUR PRIOR TO SEXUAL ACTIVITY : Allopurinol (#450 02/09/23) Monteleukast (#90 04/30/23) Intentionally losing weight. Down to 310#. Comfortable and well groomed. Gait is upright and grossly normal. Mild tenderness of left knee lateral popliteal space. IMPRESSION: About one year of left distal posterolateral thigh area pain, initially presumed due to strain or tear of biceps femoris tendon when playing soccer with his daughter, but after CT scan evaluation found minimal pathology in that region, it was attributed to likely lumbar radiculopathy. Lumbar CT scan in Mar 2023 ([facility]) showed neuroforaminal stensoses L3-S1. It seems likely he has a combination of lumbar radiculopathy, piriformis tightness, and perhaps some lateral knee tendon strain. He is now getting benefit from chiropractic and acupuncture, and agrees to proceed with physiatry and PT referrals. He generally prefers to avoid using medication, but is getting benefit from low dose opioid therapy with Belbuca and occasional oxycodone, as well as naproxen and pregabalin. PLAN: 1. Will continue current medication management with naproxen, pregabalin, belbuca, and oxycodone when needed. 2. He will proceed with physiatry eval scheduled for tomorrow. 3. He will proceed with PT. 4. He will continue his current courses of chiropractic and acupuncture. 5. f/u 2 months by C. /dheeraj/ Benja Tipton MD STAFF PHYSICIAN Signed: 09/16/2023 09:28 BENJA TIPTON [facility]
--- OUTSIDE RECORDS SUMMARY | 2024-08-18 10:05 | XMS_ITS ---
Author Name [facility] [place] Organization [place] Address [address] [place] [address] Care Team Providers Care Wet Machine Tender Name Role Phone EHSAN OVALLES Primary [...] PART A December 08, 2013 PART A [id number] GARRICK DAMICOBRIGID Lantigua PATIENT MEDICARE (WNR) MEDICARE (M) PART A December 08, 2013 PART A [id number] [id number] BRIGID RAMOS PATIENT Selected Encounter This section includes the information on record at [place] for the Encounter. Date/Time Encounter Type Encounter Description Reason Pro vider Source Sep 30, 2023 10:26 AM Outpatient Encounter EVENT (HISTORICAL) IHE Encounter [...] Date/Time Appointment Type Appointme nt Facility Name Oct 21, 2023 11:45 AM AMBULATORY - MEDICINE [facility] [place] [facility] Nov 05, 2023 01:00 PM AMBULATORY - REHAB MEDICIN E [facility] [place] [facility] Nov 11, 2023 10:00 AM AMBULATORY - MEDICINE [place] [facility] Nov 24, 2023 09:30 AM AMBULATORY - MEDICINE [place] [facility] [place] [facility] Nov 26, 2023 10:30 AM AMBULATORY - REHAB MEDICIN E [place] Dec 01, 2023 09:45 AM AMBULATORY - MEDICINE [place] [facility] Dec 01, 2023 03:30 PM AMBULATORY - REHAB MEDICIN E [place] Dec 08, 2023 09:00 AM AMBULATORY - REHAB MEDICIN E [place] January 05, 2024 01:00 PM AMBULATORY - REHAB MEDICIN E [facility] [place] [facility] Jan 15, 2024 09:30 AM AMBULATORY - REHAB MEDICIN E [place] Feb 23, 2024 09:00 AM AMBULATORY - MEDICINE [place] [place] [facility] Feb 25, 2024 01:00 PM AMBULATORY - REHAB MEDICIN E [facility] [place] [facility] Mar 21, 2024 10:00 AM AMBULATORY - MEDICINE [place] [facility] [place] [place] [facility] Mar 24, 2024 01:00 PM AMBULATORY - MEDICINE [place] [facility] [place] [facility] Vital Signs: All taken on the encounter date This section contains inpatient and outpatient Vital Signs collected on the date of the Encounter. Date/Time Temperature Pulse Blood Pressure Respiratory Rate SP02 Pain Height Weight Body Mass Index Source Sep 30, 2023 10:10 AM 140/80 [place] [facility] [facility] Sep 30, 2023 09:59 AM 67 160/100 18 98 7 [place] [facility] [facility] Social History: Smoking Status (Most current) and [...] Jose armstrong May 12, 2023 10:46 AM [place]-TOBACCO NEVER USED [facility] Tobacco Use History This section includes a history of the smoking, or tobacco-related health factors, that were collected on or before the date of the Encounter. The data comes from the [place] facility where the Encounter took place. Date/Time Smoking Status/Tobacco Use Comment Trisha acyonatan Oct 20, 2015 10:30 AM LIFETIME NON-TOBACCO USER [facility] Sep 19, 2009 11:13 AM LIFETIME NON-TOBACCO USER [facility] Advance Directives: All historical and current Section [...] 22, 2018 ADVANCE DIRECTIVE JASWANT DICKINSON [facility] Radiology Reports: +/- 30 days of the [...] 10:26 AM FLUOROSCOPIC [place] NCE OF NEEDLE/SPINE: KARENCHELACOLBY [id number] -1970 M Ex Date: SEP 30, 2023@10:26 Req Phys: YAIR FALCON Loc: CWM/NO/MED REHAB/SPINE INJ (Re Img Loc: [facility]/BUILDING 1 Service: Unknown (Case [id number] COMPLETE) FLUOROSCOPIC GUIDANCE OF NEEDLE/S(RAD Detailed) CPT:95877 Reason for Study: transforaminal epidural steroid injection Clinical History: Report Status: Verified Date Reported: SEP 30, 2023 Date Verified: SEP 30, 2023 Supervisor Reclamation E-Sig:/ES/GREG OLIVIER JR Report: Study: Pain injection [...] Primary Interpreting Staff: GREG OLIVIER JR, Radiologist (Supervisor Reclamation) /GREG GAITAN JR [facility] Sep 17, 2023 10:53 AM SPINE LUMBOSACRAL MIN 4 VIEWS: COLBY HARTLEY [id number] -1970 M Exm Date: SEP 17, 2023@10:53 Req Phys: HUMAIRA PITTS Loc: CWM/NO/MEDICAL REHAB B (Req'g Img Loc: [facility] 1 Service: Unknown (Case [id number] COMPLETE) SPINE LUMBOSACRAL MIN 4 VIEWS (RAD Detailed) CPT:09608 Reason for Study: back pain with L3 left radiculopathy Clinical History: Report Status: Verified Date Reported: SEP 17, 2023 Date Verified: SEP 17, 2023 Supervisor Reclamation E-Sig:/ES/GREG OLIVIER JR Report: Study: AP and [...] Primary Interpreting Staff: GREG OLIVIER JR, Radiologist (Supervisor Reclamation) /GREG GAITAN JR [facility] [place] [place] [facility] Sep 17, 2023 10:35 AM HIP 2-3 VIEWS(LEFT ) WITH OR WITHOUT PELVIS: COLBY HARTLEY [id number] -1970 M Exm Date: SEP 17, 2023@10:35 Req Phys: HUMAIRA PITTS Loc: CWM/NO/MEDICAL REHAB B (Req'g Img Loc: [facility]/BUILDING 1 Service: Unknown (Case [id number] COMPLETE) HIP 2-3 VIEWS(LEFT) WITH OR WITHO(RAD Detailed) CPT:64273 CPT Modifiers : LT LEFT SIDE Reason for Study: pain left hip referred to knee Clinical History: Report Status: Verified Date Reported: SEP 17, 2023 Date Verified: SEP 17, 2023 Supervisor Reclamation E-Sig:/ES/GREG OLIVIER JR Report: Study: AP view [...] Primary Interpreting Staff: GREG OLIVIER JR, Radiologist (Supervisor Reclamation) /GREG GAITAN JR [place] [facility]
--- OUTSIDE RECORDS SUMMARY | 2024-08-18 10:06 | XMS_ITS | Encounter Summary ---
Author Name [facility] [place] Address [address] [place] [address] Care Team Providers Care Tax Map Technician Name Role Phone EHSAN OVALLES Primary [...] PART A December 08, 2013 PART A [id number] [id number] BRIGID RAMOS PATIENT MEDICARE (WNR) MEDICARE (M) PART A December 08, 2013 PART A [id number] [id number] BRIGID RAMOS PATIENT Selected Encounter This section includes the information on record at [place] for the Encounter. Date/Time Encounter Type Encounter Description Reason Pro vider Source Aug 20, 2023 12:00 PM Outpatient Encounter COMMUNITY CARE [...] 20 appointments. The data comes from all [place] treatment facilities. Appointment Date/Time Appointment Type Appointme nt Facility Name Sep 16, 2023 09:00 AM AMBULATORY - MEDICINE [facility] [place] [facility] Sep 17, 2023 09:30 AM AMBULATORY - REHAB MEDICIN E [facility] [place] [facility] Sep 17, 2023 10:26 AM AMBULATORY - NONE [facility] [place] [facility] Sep 21, 2023 09:15 AM AMBULATORY - MEDICINE [facility] [place] [facility] Sep 29, 2023 10:00 AM AMBULATORY - MEDICINE [place] [facility] [place] [place] [facility] Sep 30, 2023 10:00 AM AMBULATORY - REHAB MEDICIN E [facility] [place] [facility] Oct 21, 2023 11:45 AM AMBULATORY - MEDICINE [facility] [place] [place] [facility] Nov 05, 2023 01:00 PM AMBULATORY - REHAB MEDICIN E [facility] [place] [facility] Nov 11, 2023 10:00 AM AMBULATORY - MEDICINE [facility] [place] [facility] Nov 24, 2023 09:30 AM AMBULATORY - MEDICINE [facility] [place] [facility] Nov 26, 2023 10:30 AM AMBULATORY - REHAB MEDICIN E [place] Dec 01, 2023 09:45 AM AMBULATORY - MEDICINE [place] [facility] Dec 01, 2023 03:30 PM AMBULATORY - REHAB MEDICIN E [place] Dec 08, 2023 09:00 AM AMBULATORY - REHAB MEDICIN E [place] January 05, 2024 01:00 PM AMBULATORY - REHAB MEDICIN E [facility] [place] [facility] Jan 15, 2024 09:30 AM AMBULATORY - REHAB MEDICIN E [place] Lab Results: +/- 30 days of the encounter This section includes the Chemistry and Hematology Lab Results on record with [place] for the patient. Radiology Reports and Pathology Reports are provided separately, in subsequent sections. Lab Results This section contains the Chemistry/Hematology Results that were resulted 30 days before or 30 daysafter the date of the Encounter. Date/Time Source Result Type Result - Unit Interpretation Reference Range Comment Aug 13, 2023 10:39 AM [place] [facility] [place] [facility] URIC ACID Specimen Type: SERUM No comment entered. Ordering Provider: JESSE TIPTON Report Released Date/Time: Jul 28, 2023 01:48 PM Reporting Lab: [facility] [address] [address] Performing Lab: [facility] [address] [address] URIC ACID 5.8 mg/dL 3.5-7.2 Social History: [...] 12, 2023 10:46 AM [place]-TOBACCO NEVER USED [facility] Tobacco Use History This section includes a history of the smoking, or tobacco-related health factors, that were collected on or before the date of the Encounter. The data comes from the [place] facility where the Encounter took place. Date/Time Smoking Status/Tobacco Use Comment F acility Oct 20, 2015 10:30 AM LIFETIME NON-TOBACCO USER [facility] Sep 19, 2009 11:13 AM LIFETIME NON-TOBACCO USER [facility] Advance Directives: All historical and current Section [...] Mar 22, 2018 ADVANCE DIRECTIVE JASWANT DICKINSON [facility] Radiology Reports: +/- 30 days of [...] the Encounter. The data comes from all [place] treatment facilities. Date/Time Radiology Report Provider Source Sep 17, 2023 10:53 AM SPINE LUMBOSACRAL MIN 4 VIEWS: COLBY HARTLEY [id number] -1970 M Exm Date: SEP 17, 2023@10:53 Req Phys: HUMAIRA PITTS Loc: CWM/NO/MEDICAL REHAB B (Req'g Img Loc: [facility]/BUILD[facility] 1 Service: Unknown (Case [id number] COMPLETE) SPINE LUMBOSACRAL MIN 4 VIEWS (RAD Detailed) CPT:76858 Reason for Study: back pain with L3 left radiculopathy Clinical History: Report Status: Verified Date Reported: SEP 17, 2023 Date Verified: SEP 17, 2023 3Rd Mate E-Sig:/ES/GREG OLIVIER JR Report: Study: AP and [...] Primary Interpreting Staff: GREG OLIVIER JR, Radiologist (3Rd Mate) /GREG GAITAN JR [place] [facility] [place] [facility] Sep 17, 2023 10:35 AM HIP 2-3 VIEWS(LEFT ) WITH OR WITHOUT PELVIS: COLBY HARTLEY [id number] -1970 M Exm Date: SEP 17, 2023@10:35 Req Phys: JER PITTSEL Adarsh Albert Loc: CWM/NO/MEDICAL REHAB B (Req'g Img Loc: [facility]/BUILD[facility] 1 Service: Unknown (Case [id number] COMPLETE) HIP 2-3 VIEWS(LEFT) WITH OR WITHO(RAD Detailed) CPT:43313 CPT Modifiers : LT LEFT SIDE Reason for Study: pain left hip referred to knee Clinical History: Report Status: Verified Date Reported: SEP 17, 2023 Date Verified: SEP 17, 2023 3Rd Mate E-Sig:/ES/GREG OLIVIER JR Report: Study: AP view [...] Primary Interpreting Staff: GREG OLIVIER JR, Radiologist (3Rd Mate) /GREG GAITAN JR [facility] Encounter Notes: All associated encounter notes This section contains the clinical notes associated to the Encounter. Date/Time Encounter Note(s) Provider Source Aug 20, 2023 12:00 PM NONVA CONSULT: LOCAL TITLE: COMMUNITY CARE-CONSULT RESULT NOTE STANDARD TITLE: NONVA CONSULT DATE OF NOTE: AUG 20, 2023@12:00 ENTRY DATE: OCT 07, 2023@08:36:08 AUTHOR: BERNARDO HINES COSIGNER: URGENCY: STATUS: COMPLETED VistA Imaging - Scanned Document SCANNED DOCUMENT SIGNATURE NOT REQUIRED Electronically Filed: 10/07/2023 by: BERNARDO YBARRA [facility]
--- OUTSIDE RECORDS SUMMARY | 2024-08-18 10:06 | XMS_ITS ---
Author Name [facility] [place] Address [address] [place] [address] Care Team Providers Care Department Store Salesperson Name Role Phone EHSAN OVALLES Primary Care [...] PART A December 08, 2013 PART A [id number] [id number] BRIGID RAMOS PATIENT MEDICARE (WNR) MEDICARE (M) PART A December 08, 2013 PART A [id number] 62A [phone] [id number] BRIGID RAMOS PATIENT Selected Encounter This section includes the information on record at [place] for the Encounter. Date/Time Encounter Type Encounter Description Reason Pro vider Source Oct 29, 2023 09:39 AM Outpatient Encounter PRIMARY CARE/MEDICINE IHE Encounter [...] REHAB MEDICIN E [place] [facility] [place] [facility] Nov 11, 2023 10:00 AM AMBULATORY - MEDICINE [place] [facility] Nov 24, 2023 09:30 AM AMBULATORY - MEDICINE [place] [facility] Nov 26, 2023 10:30 AM AMBULATORY - REHAB MEDICIN E [place] Dec 01, 2023 09:45 AM AMBULATORY - MEDICINE [place] [facility] Dec 01, 2023 03:30 PM AMBULATORY - REHAB MEDICIN E [place] Dec 08, 2023 09:00 AM AMBULATORY - REHAB MEDICIN E [place] January 05, 2024 01:00 PM AMBULATORY - REHAB MEDICIN E [place] [facility] [place] [facility] Jan 15, 2024 09:30 AM AMBULATORY - REHAB MEDICIN E [place] Feb 23, 2024 09:00 AM AMBULATORY - MEDICINE [place] [facility] Feb 25, 2024 01:00 PM AMBULATORY - REHAB MEDICIN E [place] [facility] [place] [facility] Mar 21, 2024 10:00 AM AMBULATORY - MEDICINE [place] [facility] Mar 24, 2024 01:00 PM AMBULATORY - MEDICINE [place] [place] [facility] Apr 06, 2024 10:00 AM [facility] Lab Results: +/- 30 days of [...] Comment Nov 09, 2023 08:51 AM [place] [facility] [facility] LIPID PANEL FASTING Specimen Type: SERUM No comment entered. Ordering Provider: EHSAN OVALLES Report Released Date/Time: May 12, 2023 10:46 AM Reporting Lab: [address] [address] Performing Lab: [facility] [address] [address] CHOLESTEROL 286 mg/dL H TRIGLYCERIDE 111 mg/dL 0-150 LDL calculated 226 mg/dL H 0-129 CHOL/HDL 7.5 HDL CHOLESTEROL 38 mg/dL L 40-60 Nov 09, 2023 08:51 AM [facility] LIVER FUNCTION Specimen Type: SERUM No comment entered. Ordering Provider: EHSAN OVALLES Report Released Date/Time: May 12, 2023 10:46 AM Reporting Lab: [facility] [address] [address] Performing Lab: [address] [address] PROTEIN,TOTAL 7.2 g/dL 6.0-8.3 ALBUMIN 4.0 g/dL 3.5-5.0 ALKALINE PHOSPHATASE 68 U/L 40-150 AST 21 U/L 5-34 ALT 40 U/L BILIRUBIN, TOTAL 0.6 mg/dL 0.2-1.2 Nov 09, 2023 08:51 AM [facility] BASIC METABOLIC PANEL (fasting) Specimen Type: SERUM No comment entered. Ordering Provider: EHSAN OVALLES Report Released Date/Time: May 12, 2023 10:46 AM Reporting Lab: [address] [address] Performing Lab: [address] [address] UREA NITROGEN 25 mg/dL 7-25 GLUCOSE 97 [...] Jose ity May 12, 2023 10:46 AM [place]-TOBACCO NEVER USED [facility] Tobacco Use History This section includes a history of the smoking, or tobacco-related health factors, that were collected on or before the date of the Encounter. The data comes from the [place] facility where the Encounter took place. Date/Time Smoking Status/Tobacco Use Comment F acility Oct 20, 2015 10:30 AM LIFETIME NON-TOBACCO USER [facility] Sep 19, 2009 11:13 AM LIFETIME NON-TOBACCO USER [facility] Advance Directives: All historical and [...] Mar 22, 2018 ADVANCE DIRECTIVE JASWANT DICKINSON [facility] Radiology Reports: +/- 30 days of [...] FLUOROSCOPIC [place] NCE OF NEEDLE/SPINE: COLBY HARTLEY [id number] -1970 M Ex Date: SEP 30, 2023@10:26 Req Phys: YAIR FALCON Loc: CWM/NO/MED REHAB/SPINE INJ (Re Img Loc: [facility]BUILD[facility] 1 Service: Unknown (Case 100 COMPLETE) FLUOROSCOPIC GUIDANCE OF NEEDLE/S(RAD Detailed) CPT:23015 Reason for Study: transforaminal epidural steroid injection Clinical History: Report Status: Verified Date Reported: SEP 30, 2023 Date Verified: SEP 30, 2023 Research Phlebotomist E-Sig:/ES/GREG OLIVIER JR Report: Study: Pain injection [...] Interpreting Staff: GREG OLIVIER JR, Radiologist ([place]) /RGEG GAITAN JR [facility] Encounter Notes: All associated encounter notes This section contains the clinical notes associated to the Encounter. Date/Time Encounter Note(s) Provider Source Oct 29, 2023 09:39 AM PRIMARY CARE NOTE: LOCAL TITLE: WALK-IN NOTE PRIMARY CARE (T) STANDARD TITLE: PRIMARY CARE NOTE DATE OF NOTE: OCT 29, 2023@09:39 ENTRY DATE: OCT 29, 2023@09:39:33 AUTHOR: LATASHA BARON COSIGNER: URGENCY: STATUS: COMPLETED <====Click to Start Advanced Medical Support presents to the Primary Care clinic with the following request: [ ]Medication Renewal/Refill [ ]Consultation with Team RN [ ]Symptoms [ X ]Other The states they are: [ ]Waiting [ X ]Not Waiting No Walk in visit scheduled with PACT Nurse [ X ] At this encounter the [place]'s demographics were verified. [ X ] At this encounter the [place]'s Insurance information was verified. [ X ] At this encounter the below scheduled visits for the were discussed and appointment reminder card was offered. Future appointments: 11/05/2023 13:00 CWM/NO/MEDICAL REHAB B 11/11/2023 10:00 CWM/SO/PACT 10 11/24/2023 09:30 CWM/NO/VVC/PAIN MD 1 03/21/2024 10:00 CWM/NO/OPTOMETRY/MERHAR dropped off an outside lab order from [employer] [facility] [place], he would like them drawn today, his appt. with them on 11/02. Order placed in providers mailbox. /dheeraj/ LATASHA BARON [employer]VANCED HE[employer] CARE TECHNICIAN Signed: 10/29/2023 09:41 Receipt Acknowledged By: 10/29/2023 10:11 /es/ TAMEKA DOSS RN REGISTERED NURSE 10/29/2023 09:50 /es/ ADEN VALLECILLO LPN PACT 10 LATASHA BARONFIELD
--- OUTSIDE RECORDS SUMMARY | 2024-08-18 10:06 | XMS_ITS ---
Author Name Department of Vetera Affairs [place] Organization [facility] [place] [place] Address [address] [place] [address] Care Team Providers Care Boat And Plant Utility Supervisor Name Role Phone EHSAN OVALLES Primary [...] PART A December 08, 2013 PART A [id number] [id number] BRIGID RAMOS PATIENT MEDICARE (WNR) MEDICARE (M) PART A December 08, 2013 PART A [id number] 62A BRIGID RAMOS PATIENT Selected Encounter This section includes the information on record at [place] for the Encounter. Date/Time Encounter Type Encounter Description Reason Pro vider Source Oct 29, 2023 09:37 AM Outpatient Encounter PRIMARY CARE/MEDICINE IHE Encounter Template Text not used by ID Plan of Treatment: Future Appointments (+ 6 [...] 20 appointments. The data comes from all ID treatment facilities. Appointment Date/Time Appointment Type Appointme nt Facility Name Nov 05, 2023 01:00 PM AMBULATORY [facility] [place] [facility] Nov 11, 2023 10:00 AM AMBULATORY - MEDICINE [place] [facility] [place] [facility] Nov 24, 2023 09:30 AM AMBULATORY - MEDICINE [place] [facility] [place] [facility] Nov 26, 2023 10:30 AM AMBULATORY - REH[place] MEDICIN E [place] Dec 01, 2023 09:45 AM AMBULATORY - MEDICINE [place] [facility] [place] [facility] Dec 01, 2023 03:30 PM AMBULATORY - REHAB MEDICIN E [place] Dec 08, 2023 09:00 AM AMBULATORY - REHAB MEDICIN E [place] January 05, 2024 01:00 PM AMBULATORY - [facility] [place] [facility] Jan 15, 2024 09:30 AM AMBULATORY - REHAB MEDICIN E [place] Feb 23, 2024 09:00 AM AMBULATORY - MEDICINE [place] [facility] [place] [facility] Feb 25, 2024 01:00 PM AMBULATORY - REHAB MEDICIN [facility] [place] [facility] Mar 21, 2024 10:00 AM AMBULATORY - MEDICINE [place] [facility] [place] [facility] Mar 24, 2024 01:00 PM AMBULATORY - MEDICINE [place] [facility] [place] [facility] Apr 06, 2024 10:00 AM [facility] [place] [facility] Lab Results: +/- 30 days of the encounter This section includes the Chemistry and Hematology Lab Results on record with ID for the patient. Radiology Reports and Pathology Reports are provided separately, in subsequent sections. Lab Results This section contains the Chemistry/Hematology Results that were resulted 30 days before or 30 daysafter the date of the Encounter. Date/Time Source Result Type Result - Unit Interpretation Reference Range Comment Nov 09, 2023 08:51 AM [place] [facility] [place] [facility] LIPID PANEL FASTING Specimen Type: SERUM No comment entered. Ordering Provider: EHSAN OVALLES Report Released Date/Time: May 12, 2023 10:46 AM Reporting Lab: [address] [address] Performing Lab: [facility] [address] [address] CHOLESTEROL 286 mg/dL H TRIGLYCERIDE 111 mg/dL 0-150 LDL calculated 226 mg/dL H 0-129 CHOL/HDL 7.5 HDL CHOLESTEROL 38 mg/dL L 40-60 Nov 09, 2023 08:51 AM [facility] LIVER FUNCTION Specimen Type: SERUM No comment entered. Ordering Provider: EHSAN OVALLES Report Released Date/Time: May 12, 2023 10:46 AM Reporting Lab: [facility] [address] [address] Performing Lab: [address] [address] PROTEIN,TOTAL 7.2 g/dL 6.0-8.3 ALBUMIN 4.0 g/dL 3.5-5.0 ALKALINE PHOSPHATASE 68 U/L 40-150 AST 21 U/L 5-34 ALT 40 U/L BILIRUBIN, TOTAL 0.6 mg/dL 0.2-1.2 Nov 09, 2023 08:51 AM [facility] BASIC METABOLIC PANEL (fasting) Specimen Type: SERUM No comment entered. Ordering Provider: EHSAN OVALLES Report Released Date/Time: May 12, 2023 10:46 AM Reporting Lab: [address] [address] Performing Lab: [address] [address] UREA NITROGEN 25 mg/dL 7-25 GLUCOSE 97 [...] and tobacco- related health factors from the ID facility where the Encounter took place. Current Smoking Status This section includes the most current smoking, or tobacco-related health factor, from the ID facility where the Encounter took place. Date/Time Current Smoking Status Comment Jose ity May 12, 2023 10:46 AM ID-TOBACCO NEVER USED [facility] Tobacco Use History This section includes a history of the smoking, or tobacco-related health factors, that were collected on or before the date of the Encounter. The data comes from the ID facility where the Encounter took place. Date/Time Smoking Status/Tobacco Use Comment F acility Oct 20, 2015 10:30 AM LIFETIME NON-TOBACCO USER [facility] Sep 19, 2009 11:13 AM LIFETIME NON-TOBACCO USER [facility] Advance Directives: All historical and current Section Date Range: From patient's date of to the date document was created. This section includes ALL of a patient's completed or amended [place] Advance and Rescinded Directives. The entries below indicate that a directive exists for the patient, but an actual copy is not included with this document. The data comes from all ID facilities. Date Advance Directives Provider Source Mar 22, 2018 ADVANCE DIRECTIVE JASWANT [facility]ICKINSON [facility] Radiology Reports: +/- 30 days [...] the Encounter. The data comes from all ID treatment facilities. Date/Time Radiology Report Provider Source Sep 30, 2023 10:26 AM FLUOROSCOPIC [place] NCE OF NEEDLE/SPINE: COLBY HARTLEY [id number] -1970 M Ex Date: SEP 30, 2023@10:26 Req Phys: YAIR FALCON Loc: CWM/NO/MED REHAB/SPINE INJ (Re Img Loc: [facility] 1 Service: Unknown (Case 100 COMPLETE) FLUOROSCOPIC GUIDANCE OF NEEDLE/S(RAD Detailed) CPT:41623 Reason for Study: transforaminal epidural steroid injection Clinical History: Report Status: Verified Date Reported: SEP 30, 2023 Date Verified: SEP 30, 2023 Optomechanical Technician E-Sig:/ES/GREG OLIVIER JR Report: Study: Pain injection [...] OLIVIER JR, Radiologist (Thiago) /GREG GAITAN JR [facility] Encounter Notes: All associated encounter notes This section contains the clinical notes associated to the Encounter. Date/Time Encounter Note(s) Provider Source Oct 29, 2023 09:37 AM MEDICATION MGT NOT E: LOCAL TITLE: OUTPATIENT MEDICATION REQUEST STANDARD TITLE: MEDICATION MGT NOTE DATE OF NOTE: OCT 29, 2023@09:37 ENTRY DATE: OCT 29, 2023@09:37:48 AUTHOR: TAMEKA DOSS EXP COSIGNER: URGENCY: STATUS: COMPLETED Medication Request Date of Request: Oct Please renew and mail. MONTELUKAST TAB 10MG TAKE ONE TABLET BY MOUTH EVERY EVENING FOR ASTHMA Quantity: 90 Refills: 3 /dheeraj/ TAMEKA DOSS RN REGISTERED NURSE Signed: 10/29/2023 09:38 Receipt Acknowledged By: 10/29/2023 11:33 /dheeraj/ EHSAN OVALLES MD Primary Care Physician TAMEKA DOSS
--- OUTSIDE RECORDS SUMMARY | 2024-08-18 10:06 | XMS_ITS ---
Author Name [facility] [place] Organization [place] Address [address] [place] [address] Care Team Providers Care Monument Stonecutter Name Role Phone EHSAN OVALLES Primary Care [...] PART A December 08, 2013 PART A [id number] [id number] BRIGID RAMOS PATIENT MEDICARE (WNR) MEDICARE (M) PART A December 08, 2013 PART A [id number] 62A [phone] BRIGID RAMOS PATIENT Selected Encounter This section includes the information on record at [place] for the Encounter. Date/Time Encounter Type Encounter Description Reason Pro vider Source Oct 29, 2023 07:39 AM Outpatient Encounter PRIMARY CARE/MEDICINE IHE Encounter Template Text not used by [place] [...] REH[facility] MEDICIN [facility] [place] [facility] Nov 11, 2023 10:00 AM AMBULATORY - MEDICINE [place] [facility] [place] [facility] Nov 24, 2023 09:30 AM AMBULATORY - MEDICINE [place] [facility] [place] [facility] Nov 26, 2023 10:30 AM AMBULATORY - REHAB MEDICIN E [place] Dec 01, 2023 09:45 AM AMBULATORY - MEDICINE [place] [facility] [place] [facility] Dec 01, 2023 03:30 PM AMBULATORY - REHAB MEDICIN E [place] Dec 08, 2023 09:00 AM AMBULATORY - REHAB MEDICIN E [place] January 05, 2024 01:00 PM AMBULATORY - REHAB MEDICIN [facility] [place] [facility] Jan 15, 2024 09:30 AM AMBULATORY - REHAB MEDICIN E [place] Feb 23, 2024 09:00 AM AMBULATORY - MEDICINE [place] [facility] [place] [facility] Feb 25, 2024 01:00 PM AMBULATORY - REHAB MEDICIN E [facility] [place] [facility] Mar 21, 2024 10:00 AM AMBULATORY - MEDICINE [place] [facility] [place] [facility] Mar 24, 2024 01:00 PM AMBULATORY - MEDICINE [place] [facility] [place] [facility] Apr 06, 2024 10:00 AM [facility] [place] [facility] Lab Results: +/- 30 days [...] Range Comment Nov 09, 2023 08:51 AM [place] [facility] [place] [facility] LIPID PANEL FASTING Specimen Type: SERUM No comment entered. Ordering Provider: EHSAN OVALLES Report Released Date/Time: May 12, 2023 10:46 AM Reporting Lab: [address] [address] Performing Lab: [facility] [address] [facility] [address] CHOLESTEROL 286 mg/dL H TRIGLYCERIDE 111 mg/dL 0-150 LDL calculated 226 mg/dL H 0-129 CHOL/HDL 7.5 HDL CHOLESTEROL 38 mg/dL L 40-60 Nov 09, 2023 08:51 AM [facility] LIVER FUNCTION Specimen Type: SERUM No comment entered. Ordering Provider: EHSAN OVALLES Report Released Date/Time: May 12, 2023 10:46 AM Reporting Lab: [facility] [address] [facility] [address] Performing Lab: [address] [address] PROTEIN,TOTAL 7.2 g/dL 6.0-8.3 ALBUMIN 4.0 g/dL 3.5-5.0 ALKALINE PHOSPHATASE 68 U/L 40-150 AST 21 U/L 5-34 ALT 40 U/L BILIRUBIN, TOTAL 0.6 mg/dL 0.2-1.2 Nov 09, 2023 08:51 AM [facility] BASIC METABOLIC PANEL (fasting) Specimen Type: SERUM No comment entered. Ordering Provider: EHSAN OVALLES Report Released Date/Time: May 12, 2023 10:46 AM Reporting Lab: [address] [address] Performing Lab: [address] [address] UREA NITROGEN 25 mg/dL 7-25 GLUCOSE 97 [...] Jose ity May 12, 2023 10:46 AM [place]-TOBACCO NEVER USED [facility] Tobacco Use History This section includes a history of the smoking, or tobacco-related health factors, that were collected on or before the date of the Encounter. The data comes from the [place] facility where the Encounter took place. Date/Time Smoking Status/Tobacco Use Comment F acility Oct 20, 2015 10:30 AM LIFETIME NON-TOBACCO USER [facility] Sep 19, 2009 11:13 AM LIFETIME NON-TOBACCO USER [facility] Advance Directives: All historical and current [...] Mar 22, 2018 ADVANCE DIRECTIVE JASWANT DICKINSON [facility] Radiology Reports: +/- 30 days of the [...] 10:26 AM FLUOROSCOPIC [place] NCE OF NEEDLE/SPINE: DONELL HARTLEY [id number] -1970 M Ex Date: SEP 30, 2023@10:26 Req Phys: YAIR FALCON Loc: CWM/NO/MED REHAB/SPINE INJ (Re Img Loc: [facility] 1 Service: Unknown (Case 100 COMPLETE) FLUOROSCOPIC GUIDANCE OF NEEDLE/S(RAD Detailed) CPT:80509 Reason for Study: transforaminal epidural steroid injection Clinical History: Report Status: Verified Date Reported: SEP 30, 2023 Date Verified: SEP 30, 2023 Medical Research Associate E-Sig:/ES/GREG OLIVIER JR Report: Study: Pain injection [...] Primary Interpreting Staff: GREG OLIVIER JR, Radiologist (Medical Research Associate) /GREG GAITAN JR [facility] Encounter Notes: All associated encounter notes This section contains the clinical notes associated to the Encounter. Date/Time Encounter Note(s) Provider Source Oct 29, 2023 07:39 AM PRIMARY CARE [employer] MESSAGING: LOCAL TITLE: PRIMARY CARE SECURE MESSAGING STANDARD TITLE: PRIMARY CARE SECURE MESSAGING DATE OF NOTE: OCT 29, 2023@07:39 ENTRY DATE: OCT 29, 2023@08:39:48 AUTHOR: LATASHA BARON EXP COSIGNER: URGENCY: STATUS: COMPLETED PRIMARY CARE SECURE MESSAGING Has ADDENDA ------Original Message ----- Sent: 10/28/2023 04:40 PM ET From: DONELL HARTLEY To: Adarsh OVALLES_PRIMARY CARE_[facility] Subject: Medication:Montelukast Sultana, I have no refills left on my Montelukast. I am currently out. Can you please fill this medication? Donell Becerril /eileen BARON [employer] PEDDLER Signed: 10/29/2023 08:39 Receipt Acknowledged By: 10/29/2023 09:38 /dheeraj/ TAMEKA DOSS RN REGISTERED NURSE 10/29/2023 09:51 /dheeraj/ ADEN VALLECILLO LPN PACT 10 10/29/2023 ADDENDUM STATUS: COMPLETED Medication request sent to the provider. /dheeraj/ TAMEKA FALES, RN REGISTERED NURSE Signed: 10/29/2023 09:38 LATASHA BARON [facility]
--- OUTSIDE RECORDS SUMMARY | 2024-08-18 10:06 | XMS_ITS ---
Author Name Department of [place] Affairs [place] Organization Department of [place] Address [address] [place] [address] Care Team Providers Care Pulmonologist Intensivist Name Role Phone EHSAN OVALLES Primary Care [...] PART A December 08, 2013 PART A [id number] [id number] BRIGID RAMOS PATIENT MEDICARE (WNR) MEDICARE (M) PART A December 08, 2013 PART A [id number] 62A [phone] BRIGID RAMOS PATIENT Selected Encounter This section includes the information on record at [place] for the Encounter. Date/Time Encounter Type Encounter Description Reason Pro vider Source Oct 21, 2023 12:00 AM Outpatient Encounter COMMUNITY CARE CONSULT IHE Encounter Template Text not used by [place] [...] 20 appointments. The data comes from all [place] treatment facilities. Appointment Date/Time Appointment Type Appointme [...] 10:30 AM AMBULATORY - REHAB MEDICIN E [place] Dec 01, 2023 09:45 AM AMBULATORY - [place]ICINE [place] [facility] [place] [place] [facility] Dec 01, 2023 03:30 PM AMBULATORY - REHAB MEDICIN E [place] Dec 08, 2023 09:00 AM AMBULATORY - REHAB MEDICIN E [place] January 05, 2024 01:00 PM AMBULATORY - REHAB MEDICIN [place] [facility] [place] [facility] Jan 15, 2024 09:30 AM AMBULATORY - REHAB MEDICIN E [place] Feb 23, 2024 09:00 AM AMBULATORY - MEDICINE [place] [facility] [place] [facility] Feb 25, 2024 01:00 PM AMBULATORY - REHAB MEDICIN E [facility] [place] [facility] Mar 21, 2024 10:00 AM AMBULATORY - MEDICINE [place] [facility] [place] [facility] Mar 24, 2024 01:00 PM AMBULATORY - MEDICINE [place] [facility] [place] [facility] Apr 06, 2024 10:00 AM AMBULATORY - MEDICINE [place] [facility] [place] [facility] Lab Results: +/- 30 days of the encounter This section includes the Chemistry and Hematology Lab Results on record with [place] for the patient. Radiology Reports and Pathology Reports are provided separately, in subsequent sections. Lab Results This section contains the Chemistry/Hematology Results that were resulted 30 days before or 30 daysafter the date of the Encounter. Date/Time Source Result Type Result - Unit Interpretation Reference Range Comment Nov 09, 2023 08:51 [facility] [place] [facility] LIPID PANEL FASTING Specimen Type: SERUM No comment entered. Ordering Provider: EHSAN OVALLES Report Released Date/Time: May 12, 2023 10:46 AM Reporting [facility] [address] [address] Performing Lab: [facility] [address] [facility] [address] CHOLESTEROL 286 mg/dL H TRIGLYCERIDE 111 mg/dL 0-150 LDL calculated 226 mg/dL H 0-129 CHOL/HDL 7.5 HDL CHOLESTEROL 38 mg/dL L 40-60 Nov 09, 2023 08:51 AM [facility] LIVER FUNCTION Specimen Type: SERUM No comment entered. Ordering Provider: EHSAN OVALLES Report Released Date/Time: May 12, 2023 10:46 AM Reporting Lab: [facility] [address] [facility] [address] Performing Lab: [address] [address] PROTEIN,TOTAL 7.2 g/dL 6.0-8.3 ALBUMIN 4.0 g/dL 3.5-5.0 ALKALINE PHOSPHATASE 68 U/L 40-150 AST 21 U/L 5-34 ALT 40 U/L BILIRUBIN, TOTAL 0.6 mg/dL 0.2-1.2 Nov 09, 2023 08:51 AM [facility] BASIC METABOLIC PANEL (fasting) Specimen Type: SERUM No comment entered. Ordering Provider: EHSAN OVALLES Report Released Date/Time: May 12, 2023 10:46 AM Reporting Lab: [address] [address] Performing Lab: [address] [address] UREA NITROGEN 25 mg/dL 7-25 GLUCOSE 97 [...] ADVANCE DIRECTIVE JASWANT DICKINSON [facility] Radiology Reports: +/- 30 days of the [...] AM FLUOROSCOPIC [place] NCE OF NEEDLE/SPINE: ODILIACOLBY [id number] -1970 M [facility] Date: SEP 30, 2023@10:26 Req Phys: YAIR FALCON Loc: CWM/NO/MED REHAB/SPINE INJ (Re Img Loc: [facility] 1 Service: Unknown (Case 100 COMPLETE) FLUOROSCOPIC GUIDANCE OF NEEDLE/S(RAD Detailed) CPT:67436 Reason for Study: transforaminal epidural steroid injection Clinical History: Report Status: Verified Date Reported: SEP 30, 2023 Date Verified: SEP 30, 2023 Regional Economic Liaison E-Sig:/ES/GREG OLIVIER JR Report: Study: Pain injection [...] OLIVIER JR, Radiologist (Thiago) /GREG GAITAN JR [facility] Encounter Notes: All associated encounter notes This section contains the clinical notes associated to the Encounter. Date/Time Encounter Note(s) Provider Source Oct 21, 2023 12:00 AM NONVA CONSULT: LOCAL TITLE: COMMUNITY CARE-CONSULT RESULT NOTE STANDARD TITLE: NONVA CONSULT DATE OF NOTE: OCT 21, 2023 ENTRY DATE: OCT 28, 2023@06:15:15 AUTHOR: REGINALDO WATTS EXP COSIGNER: URGENCY: STATUS: COMPLETED VistA Imaging - Scanned Document SCANNED DOCUMENT SIGNATURE NOT REQUIRED Electronically Filed: 10/28/2023 by: REGINALDO VILLATORO [facility]
--- OUTSIDE RECORDS SUMMARY | 2024-08-18 10:06 | XMS_ITS | Encounter Summary ---
Author Name [facility] [place] Address [address] [place] [address] Care Team Providers Care Molten Iron Pourer Name Role Phone EHSAN OVALLES Primary Care [...] PART A December 08, 2013 PART A [id number] BRIGID RAMOS PATIENT MEDICARE (WNR) MEDICARE (M) PART A December 08, 2013 PART A [id number] [phone] BRIGID RAMOS PATIENT Selected Encounter This section includes the information on record at [place] for the Encounter. Date/Time Encounter Type Encounter Description Reason Provider Source Nov 05, 2023 01:00 PM OFFICE O/P EST LOW 20 MIN PM&RS PHYSICIAN ICD-10-CM M25.562 Pain in left knee АНДРЕЙ HUSSEIN Encounter Template Text not used by [place] Assessments - Encounter Diagnoses This section includes the primary and secondary diagnoses documented for the Encounter. Date/Time Primary/Secondary Diagnosis Diagnosis Name Provider Source December 16, 2023 11:45 AM PRIMARY Pain in left [facility] [place] [facility] December 16, 2023 11:45 AM SECONDARY Other low back pain SHARMILA HUSSEIN [place] [facility] [place] [facility] December 16, 2023 11:45 AM SECONDARY Other obesity SHARMILA HUSSEIN [place] [facility] [place] [facility] Plan of Treatment: Future Appointments (+ 6 months) and Future Tests (+/- 45 days) The Plan of Treatment section includes future care activities for the patient [facility] [place] [facility] [place] This section includes future appointments and future orders which are active, pending or scheduled. Future Appointments This section includes appointments that were scheduled to occur 6 months from the date of the Encounter, up to a maximum of 20 appointments. The data comes from all [place] treatment facilities. Appointment Date/Time Appointment Type Appointme nt Facility Name Nov 11, 2023 10:00 AM AMBULATORY - MEDICINE [place] [facility] [place] [facility] Nov 24, 2023 09:30 AM AMBULATORY - MEDICINE [place] [facility] [place] [facility] Nov 26, 2023 10:30 AM AMBULATORY - REHAB MEDICIN [facility] [place] Dec 01, 2023 09:45 AM AMBULATORY - MEDICINE [place] [facility] [place] [facility] Dec 01, 2023 03:30 PM AMBULATORY - REHAB MEDICIN [facility] Dec 08, 2023 09:00 AM AMBULATORY - REHAB MEDICIN [facility] January 05, 2024 01:00 PM AMBULATORY - REHAB MEDICIN [place] [facility] [place] [facility] Jan 15, 2024 09:30 AM AMBULATORY - REHAB MEDICIN [place] Feb 23, 2024 09:00 AM AMBULATORY - MEDICINE [place] [facility] [place] [facility] Feb 25, 2024 01:00 PM AMBULATORY - REHAB MEDICIN [place] [facility] [place] [facility] Mar 21, 2024 10:00 AM AMBULATORY - MEDICINE [place] [facility] [place] [facility] Mar 24, 2024 01:00 PM AMBULATORY - MEDICINE [place] [facility] [place] [facility] Apr 06, 2024 10:00 AM AMBULATORY - MEDICINE [place] [facility] [place] [facility] Lab Results: +/- 30 days [...] Range Comment Nov 09, 2023 08:51 AM [facility] LIPID PANEL FASTING Specimen Type: SERUM No comment entered. Ordering Provider: EHSAN OVALLES Report Released Date/Time: May 12, 2023 10:46 AM Reporting Lab: [address] [address] Performing Lab: [address] [address] CHOLESTEROL 286 mg/dL H TRIGLYCERIDE 111 mg/dL 0-150 LDL calculated 226 mg/dL H 0-129 CHOL/HDL 7.5 HDL CHOLESTEROL 38 mg/dL L 40-60 Nov 09, 2023 08:51 AM [facility] LIVER FUNCTION Specimen Type: SERUM No comment entered. Ordering Provider: EHSAN OVALLES Report Released Date/Time: May 12, 2023 10:46 AM Reporting Lab: [address] [address] Performing Lab: [address] [address] PROTEIN,TOTAL 7.2 g/dL 6.0-8.3 ALBUMIN 4.0 g/dL 3.5-5.0 ALKALINE PHOSPHATASE 68 U/L 40-150 AST 21 U/L 5-34 ALT 40 U/L BILIRUBIN, TOTAL 0.6 mg/dL 0.2-1.2 Nov 09, 2023 08:51 AM [facility] BASIC METABOLIC PANEL (fasting) Specimen Type: SERUM No comment entered. Ordering Provider: EHSAN OVALLES Report Released Date/Time: May 12, 2023 10:46 AM Reporting Lab: [address] [address] Performing Lab: [address] [address] UREA NITROGEN 25 mg/dL 7-25 GLUCOSE 97 mg/dL 65-100 SODIUM 141 mmol/L 135-145 POTASSIUM 4.5 mmol/L 3.5-5.0 CHLORIDE 104 mmol/L 100-110 CO2 28 meq/L 20-30 CREATININE, Serum 1.12 mg/dL 0.50-1.40 eGFR(CKD-EPI 2020) 79 mL/min >60 Vital Signs: All taken on the encounter date This section contains inpatient and outpatient Vital Signs collected on the date of the Encounter. Date/Time Temperature Pulse Blood Pressure Respiratory Rate SP02 Pain Height Weight Body Mass Index Source Nov 05, 2023 12:53 PM 140/80 9 [facility] Social History: Smoking Status (Most current) [...] 12, 2023 10:46 AM [place]-TOBACCO NEVER USED [facility] Tobacco Use History This section includes a history of the smoking, or tobacco-related health factors, that were collected on or before the date of the Encounter. The data comes from the [place] facility where the Encounter took place. Date/Time Smoking Status/Tobacco Use Comment F acility Oct 20, 2015 10:30 AM LIFETIME NON-TOBACCO USER [facility] Sep 19, 2009 11:13 AM LIFETIME NON-TOBACCO USER [facility] Advance Directives: All historical and current [...] Mar 22, 2018 ADVANCE DIRECTIVE JASWANT DICKINSON [facility] Encounter Notes: All associated encounter notes This section contains the clinical notes associated to the Encounter. Date/Time Encounter Note(s) Provider Source Nov 05, 2023 01:21 PM PHYSICAL MEDICINE REHAB PHYSICIAN NOTE: LOCAL TITLE: PM&R FOLLOW-UP STANDARD TITLE: PHYSICAL MEDICINE REHAB PHYSICIAN NOTE DATE OF NOTE: NOV 05, 2023@13:21 ENTRY DATE: NOV 05, 2023@13:21:33 AUTHOR: АНДРЕЙ HUSSEINIGNER: URGENCY: STATUS: COMPLETED NOV 05, 2023 COLBY HARTLEY II is a 53 y/o MALE who presents today for follow-up of left leg pain. 's back and legs are feeling much better at this point. He is not having nearly the same degree of discomfort. He is congratulated on his successes and weight reduction. He is lost a total of 30 pounds from July and a total of 60 pounds in total. Now that the back and leg are feeling so much better, he feels that he is just about feeling as well as he did 15 years ago. He has been having significant discomfort in the left knee. He had a previous Morley's cyst on the right side but he feels that the symptoms are fairly similar. The pain that he gets is behind the left knee. He feels a tightness but feels as if it is being pulled apart. His pain levels can be upwards of 8 out of 10 on an analog scale. He has not experiencing any numbness or tingling. Hip pain has diminished. He is not experiencing numbness and tingling in the feet. PMHx as obtained from Chart: Active problems - Computerized Problem List is the source for the followin. Left knee pain 2. Chronic low back pain 3. Chronic esophagitis 4. Obesity 5. Constrictive tenosynovitis 6. Erectile dysfunction 7. Obstructive sleep apnea syndrome 8. Hyperlipidemia 9. Posttraumatic stress disorder 10. Depression 11. Hypertension 12. Gout 13. Traumatic brain injury (SNOMED CT [id number]) 14. Asthma Soc Hx: MARITAL STATUS - [employer] [...] bilateral upper and lower extremities. MUSCULOSKELETAL EXAM: Very large gentleman. Affect appropriate. Has lumbar mobility was tolerated nicely. No hip irritability noted. No irritability about the SI joint with a negative Svetlana's and negative Gaenslen's maneuver. Hip flexion and internal rotation does not reproduce symptoms. He has tightness and knee flexion and then pain comes on at approximately 50 degrees of flexion. Passively I am able to bring him to 95 degrees. He has no effusion redness or warmth today. The patella is mobile. Weakly positive patella compression test. No plica is appreciated. He has no tenderness patella tendon or pes anserinus. No fullness posteriorly. Tenderness is over the lateral biceps femoris. There was a plexus of venous varicosities laterally that was mildly tender. No meniscal signs or instability appreciated. No reflex changes sensory deficits or strength deficits with isolated motor testing. Positive femoral nerve stretch test on the left. Diagnostic Studies:No new studies ASSESSMENT/PLAN: Patient is a 53-year-old with improved lumbar radiculopathy. Knee pain is most prominent feature. Still has neuropathic component. Have encouraged him to continue with that we can well and we will lower the dose to 75 mg twice daily. Continue with Naprosyn 500 mg twice daily when necessary. A course of physical therapy was recommended for strengthening and myofascial work. If he has increased fluid in the knee, will tap and sent for crystals to ensure no gout. FOLLOW-UP: 2 months after PT to determine efficacy. Potential risks and side effects of any medication(s) prescribed today was reviewed with [place]. Patient had many excellent questions, which I answered to the best of my ability and to patient's apparent satisfaction. MDM: minutes which includes reviewing records, evaluating patient, [...] of active outpatient prescriptions dispensed from this [place] (local) and dispensed from another VA or [...] with a VA or non-VA provider. /dheeraj/ АНДРЕЙ HUSSEIN [facility] Signed: 11/05/2023 13:51 АНДРЕЙ HUSSEIN [place] [facility] [place] [facility] Nov 05, 2023 01:20 PM ACCOUNTING OF DISCLOSURES NOTE: LOCAL TITLE: STATE PRESCRIPTION DRUG MONITORING PROGRAM STANDARD TITLE: ACCOUNTING OF DISCLOSURES NOTE DATE OF NOTE: NOV 05, 2023@13:20:54 ENTRY DATE: NOV 05, 2023@13:20:54 AUTHOR: АНДРЕЙ HUSSEIN EXP COSIGNER: URGENCY: STATUS: COMPLETED This PDMP query was submitted by Андрей Hussein. The clinical justification for this PDMP query is to review controlled substances prescribed outside of the VA, and any additional information that may become available, as an important component of standard clinical care, and in accordance with [facility] policy. Patient information was shared with the PDMP Appriss [place]. No prescription(s) for controlled substances outside the VA were found in the last 90 days. /dheeraj/ АНДРЕЙ HUSSEIN [facility] Signed: 11/05/2023 13:21 АНДРЕЙ HUSSEIN [place] [facility]
--- OUTSIDE RECORDS SUMMARY | 2024-08-18 10:06 | XMS_ITS ---
Author Name [facility] [place] Address [address] [place] [address] Care Team Providers Care Director Corporate Communications Name Role Phone EHSAN OVALLES Primary Care [...] PART A December 08, 2013 PART A [id number] [facility] [phone] BRIGID RAMOS PATIENT MEDICARE (WNR) MEDICARE (M) PART A December 08, 2013 PART A [id number] BRIGID RAMOS PATIENT Selected Encounter This section includes the information on record at [place] for the Encounter. Date/Time Encounter Type Encounter Description Reason Provider Source Sep 30, 2023 10:00 AM OFFICE O/P EST HI 40 MIN PM&RS PHYSICIAN ICD-10-CM M54.16 Radiculopathy , lumbar region YAIR FALCON E Encounter Template Text not used by [place] Assessments - Encounter Diagnoses This section includes the primary and secondary diagnoses documented for the Encounter. Date/Time Primary/Secondary Diagnosis Diagnosis Name Provider Source Oct 02, 2023 03:07 PM PRIMARY Radiculopathy, lumbar region YAIR FALCON [facility] [place] [facility] Oct 02, 2023 03:07 PM SECONDARY Low back pain, unspecified YAIR FALCON [facility] [place] [facility] Plan of Treatment: Future Appointments (+ 6 months) and Future Tests (+/- 45 days) The Plan of Treatment section includes future care activities for the patient from all [place] [facility]. This section includes future appointments and future orders which are active, pending or scheduled. Future Appointments This section includes appointments that were scheduled to occur 6 months from the date of the Encounter, up to a maximum of 20 appointments. The data comes from all [place] treatment facilities. Appointment Date/Time Appointment Type Appointme nt Facility Name Oct 21, 2023 11:45 AM AMBULATORY - MEDICINE [place] [facility] [facility] Nov 05, 2023 01:00 PM AMBULATORY - REHAB MEDICIN E [place] [facility] [facility] Nov 11, 2023 10:00 AM AMBULATORY - MEDICINE [place] [facility] [place] [facility] Nov 24, 2023 09:30 AM AMBULATORY - MEDICINE [place] [facility] [place] [facility] Nov 26, 2023 10:30 AM AMBULATORY - REHAB MEDICIN [place] Dec 01, 2023 09:45 AM AMBULATORY - MEDICINE [place] [facility] [place] [facility] Dec 01, 2023 03:30 PM AMBULATORY - REHAB MEDICIN [place] Dec 08, 2023 09:00 AM AMBULATORY - REHAB MEDICIN [place] January 05, 2024 01:00 PM AMBULATORY - REHAB MEDICIN E [place] [facility] [place] [facility] Jan 15, 2024 09:30 AM AMBULATORY - REHAB MEDICIN [place] Feb 23, 2024 09:00 AM AMBULATORY - MEDICINE [place] [facility] [place] [facility] Feb 25, 2024 01:00 PM AMBULATORY - REHAB MEDICIN E [place] [facility] [place] [facility] Mar 21, 2024 10:00 AM AMBULATORY - MEDICINE [place] [facility] [place] [facility] Mar 24, 2024 01:00 PM AMBULATORY - MEDICINE [place] [facility] [place] [facility] Vital Signs: All taken on the encounter date This section contains inpatient and outpatient Vital Signs collected on the date of the Encounter. Date/Time Temperature Pulse Blood Pressure Respiratory Rate SP02 Pain Height Weight Body Mass Index Source Sep 30, 2023 10:10 AM 140/80 [place] [facility] Sep 30, 2023 09:59 AM 67 160/100 18 98 7 [facility] Social History: Smoking Status (Most current) and [...] Facil ity May 12, 2023 10:46 AM [place]-TOBACCO NEVER USED [facility] Tobacco Use History This section includes a history of the smoking, or tobacco-related health factors, that were collected on or before the date of the Encounter. The data comes from the [place] facility where the Encounter took place. Date/Time Smoking Status/Tobacco Use Comment F acility Oct 20, 2015 10:30 AM LIFETIME [facility]ACCO [facility] Sep 19, 2009 11:13 AM [facility] Advance Directives: All historical and [...] Mar 22, 2018 ADVANCE DIRECTIVE [facility] Radiology Reports: +/- 30 days of [...] the Encounter. The data comes from all [place] treatment facilities. Date/Time Radiology Report Provider Source Sep 30, 2023 10:26 AM FLUOROSCOPIC [place] NCE OF NEEDLE/SPINE: COLBY HARTLEY [id number] -[id number] M Exm Date: SEP 30, 2023@10:26 Req Phys: YAIR FALCON Bety Loc: CWM/NO/MED REHAB/SPINE INJ (Re Img Loc: [facility]BUILDING 1 Service: Unknown (Case [id number] COMPLETE) FLUOROSCOPIC GUIDANCE OF NEEDLE/S(RAD Detailed) CPT:77554 Reason for Study: transforaminal epidural steroid injection Clinical History: Report Status: Verified Date Reported: SEP 30, 2023 Date Verified: SEP 30, 2023 Interstate Bus Driver E-Sig:/ES/GREG OLIVIER JR Report: Study: Pain injection [...] Primary Interpreting Staff: GREG OLIVIER JR, Radiologist ([employer]state Bus Driver) /EAGREG KRUEGER JR [facility] Sep 17, 2023 10:53 AM SPINE LUMBOSACRAL MIN 4 VIEWS: COLBY HARTLEY [id number] -[id number] M Exm Date: SEP 17, 2023@10:53 Req Phys: АНДРЕЙ PITTS Pat Loc: CWM/NO/MEDICAL REHAB B (Req'g Img Loc: [facility]BUILD[facility] 1 Service: Unknown (Case [id number] COMPLETE) SPINE LUMBOSACRAL MIN 4 VIEWS (RAD Detailed) CPT:08023 Reason for Study: back pain with L3 left radiculopathy Clinical History: Report Status: Verified Date Reported: SEP 17, 2023 Date Verified: SEP 17, 2023 [employer] E-Sig:/ES/GREG OLIVIER JR Report: Study: AP and [...] Primary Interpreting Staff: GREG OLIVIER JR, Radiologist ([employer] Bus Driver) /GREG GAITAN JR [facility] Sep 17, 2023 10:35 AM HIP 2-3 VIEWS(LEFT ) WITH OR WITHOUT PELVIS: COLBY HARTLEY [id number] -1970 M Ex Date: SEP 17, 2023@10:35 Req Phys: АНДРЕЙ PITTS Loc: CWM/NO/MEDICAL REHAB B (Req'g Img Loc: [facility] 1 Service: Unknown (Case [id number] COMPLETE) HIP 2-3 VIEWS(LEFT) WITH OR WITHO(RAD Detailed) CPT:92089 CPT Modifiers : LT LEFT SIDE Reason for Study: pain left hip referred to knee Clinical History: Report Status: Verified Date Reported: SEP 17, 2023 Date Verified: SEP 17, 2023 [employer] E-Sig:/ES/GREG OLIVIER JR Report: Study: AP view [...] Primary Interpreting Staff: GREG OLIVIER JR, Radiologist ([employer]state Bus Driver) /GREG GAITAN JR [facility] Encounter Notes: All associated encounter notes This section contains the clinical notes associated to the Encounter. Date/Time Encounter Note(s) Provider Source Sep 30, 2023 10:27 AM PHYSICAL MEDICINE REHAB NOTE: LOCAL TITLE: PM&R BACK/JOINT PROCEDURE NOTE STANDARD TITLE: PHYSICAL MEDICINE REHAB NOTE DATE OF NOTE: SEP 30, 2023@10:27 ENTRY DATE: SEP 30, 2023@10:27:50 AUTHOR: YAIR FALCON TH EXP COSIGNER: URGENCY: STATUS: COMPLETED PROCEDURE NOTE: LUMBAR/SACRAL TRANSFORAMINAL EPIDURAL STEROID INJECTION PROCEDURE: 1) Left L3-4 and right S1 transforaminal epidural steroid injection 2) Fluoroscopic needle guidance REASON FOR PROCEDURE: Lumbar radiculopathy PHYSICIAN: Yair Falcon DO MEDICATIONS INJECTED: 5mg of Dexamethasone + 1 ml of 1% Lidocaine at each level. Total dexamethasone: 10mg LOT#: [id number] Exp: 10/04 LOCAL ANESTHETIC INJECTED: 1 mL of 1% lidocaine per site CONTRAST AGENT USED: 1.5mL of Omnipaque 300 Contrast AGENT WASTED: 0mL of Omnipaque 300 SEDATION MEDICATIONS: None ESTIMATED BLOOD LOSS: None COMPLICATIONS: None HISTORY: Martha was seen for consultation on 09/17/2023 for back and left leg pain. No change in symptoms - see that note for additional details. He continues to have pain in the thigh and lateral hip buttock he had tingling in the lower extremity. X-rays were obtained of the left hip which demonstrated no significant arthritic change. Foraminal stenosis was noted at L3 and L5 on the left and postoperative CT scan after lumbar decompression. He continues to work on mindfulness with meditation techniques. He employs relaxation techniques to address PTSD and anger issues. EXAM: Vitals in chart. Awake, alert, in NAD. Morbidly obese gentleman. Chronic urticaria identified on the extremities [...] He walks with a left Trendelenburg gait. CONSENT: verbal and written electronic consent in iMed. TIME OUT NOTE TIME: Sep@10:27 correctly stated: [X]Full name: COLBY HARTLEY II [X]Last 4 of #: [id number] [X]: Apr [...] after the procedure. The patient (or responsible democrat) was given post-procedure and discharge instructions to follow at home. The patient was discharged in stable condition. Pre-procedure pain level: 9/10 Post-procedure pain level: 7/10 ASSESSMENT: 53 yo male with back pain due to lumbar radiculopathy. Medical comorbidities include BMI 45, HTN, depression, PTSD, MUSTAPHA, gout, and h/o knee pain. PLAN: - Lumbar transforaminal epidural steroid injection provided today. - Post-injection follow-up with PM&R LAURA in 2-4 weeks. Pending injection efficacy and duration of benefits, repeat injection may be considered with a change in cortisone selection or injection location(s). - Discharge instructions provided including the use of ice q2 hrs x 48 hrs prn post injection soreness/pain. - Continue with pain management per Dr. Joshua. - Discussed involvement in [employer] and he felt that the work that was being done is to rudimentary for that which he has already done on his own to address the stresses of his chronic pain. He was urged to discuss this with providers in order to determine best pathways for continued self management techniques. - No medication changes. - Contact me with any issues/questions MDM: 55 minutes Patient was seen and evaluated with Андрей Pitts PA-C prior to injection. Medication Reconciliation: Outpatient: Has the patient been taking medications as documented in the EMLR? YES: The patient has been taking medications as documented in the EMLR. Essential Medication List for Review used to complete this medication reconciliation. INCLUDED IN THIS LIST: Alphabetical list of active outpatient prescriptions dispensed from this [place] (local) and dispensed from another [place] or [facility] facility (remote) as well as [...] or non-VA provider. /dheeraj/ YAIR FALCON DO LICENSED HOME INSPECTOR Signed: 10/02/2023 15:07 YAIR FALCON [place] [facility] [place] [facility] Sep 30, 2023 10:26 AM DISCHARGE NOTE: LOCAL TITLE: DISCHARGE INSTRUCTIONS/OUTPATIENT STANDARD TITLE: DISCHARGE NOTE DATE OF NOTE: SEP 30, 2023@10:26 ENTRY DATE: SEP 30, 2023@10:26:24 AUTHOR: YAIR FALCON EXP COSIGNER: URGENCY: STATUS: COMPLETED Your ATTENDING PHYSICIAN for today's injection is: Yair Falcon DO Reason for Visit: Left L3 and Right S1 transforaminal epidural steroid - Physical/Activity Limitations: No strenous activity for [...] UNTIL DISSOLVED EVERY 12 HOURS FOR PAIN 4) CHOLECALCIF 50MCG (D3-2,000UNIT) TAB TAKE TWO TABLETS ACTIVE BY MOUTH EVERY DAY FOR VITAMIN SUPPLEMENTATION 5) DICLOFENAC NA 1% TOP GEL APPLY 4 GRAMS TOPICALLY FOUR ACTIVE TIMES A DAY FOR OSTEOARTHRITIS - USE DOSING CARD PROVIDED IN BOX 6) FLUTICAS 500/SALMETEROL 50 INHL DISK 60 INHALE 1 PUFF ACTIVE BY MOUTH TWICE DAILY - RINSE MOUTH AFTER USE 7) LIDOCAINE 5% OINT APPLY THIN LAYER TOPICALLY TWICE ACTIVE DAILY TO THREE TIMES A DAY NEEDED FOR MINOR SKIN WOUND PAIN 8) LOSARTAN 100MG TAB TAKE ONE TABLET BY MOUTH ONCE ACTIVE DAILY FOR BLOOD PRESSURE/HEART 9) NAPROXEN 500MG TAB TAKE ONE TABLET BY MOUTH TWICE ACTIVE DAILY TAKE WITH FOOD 10) OMEPRAZOLE 20MG EC CAP TAKE ONE CAPSULE BY MOUTH ACTIVE TWICE DAILY 11) OXYCODONE HCL 5MG TAB NOT SA TAKE TWO TABLETS ACTIVE BY MOUTH TWICE DAILY NEEDED FOR PAIN NOT FOR USE EVERY DAY (NEXT FILL 10/08/23) 12) PRAZOSIN HCL 1MG CAP TAKE THREE CAPSULES BY MOUTH AT ACTIVE BEDTIME TAKE DOSE AT 11 PM. 13) PREGABALIN 100MG ORAL CAP TAKE ONE CAPSULE BY MOUTH ACTIVE TWICE DAILY FOR PAIN 14) SILDENAFIL CITRATE 100MG TAB TAKE ONE TABLET BY MOUTH ACTIVE ONCE DAILY NEEDED TAKE 1 HOUR PRIOR TO SEXUAL ACTIVITY No changes to current medications Resume your [...] are experiencing problems contact: TELEPHONE ASSISTANCE at [phone] or extension [phone] Or [phone] extension [phone] (HANNA Rowan) or extension [phone] (SUNIL Albarado) If you are in an emotional crisis, feeling suicidal or having any troubling or self-destructive or violent impulses - please call [phone] (or [phone]); press 1 for Veterans to ask for [...] time of discharge. /dheeraj/ YAIR FALCON DO LICENSED HOME INSPECTOR Signed: 09/30/2023 10:27 YAIR FALCON [facility]
--- OUTSIDE RECORDS SUMMARY | 2024-08-18 10:06 | XMS_ITS ---
Author Name [facility] [place] Organization [facility] [place] Address [address] [place] [address] Care Team Providers Care Taping Machine Operator Name Role Phone EHSAN OVALLES Primary [...] PART A December 08, 2013 PART A [id number] GARRICK DAMICOBRIGID Lantigua PATIENT MEDICARE (WNR) MEDICARE (M) PART A December 08, 2013 PART A [id number] [id number] BRIGID RAMOS PATIENT Selected Encounter This section includes the information on record at [place] for the Encounter. Date/Time Encounter Type Encounter Description Reason Pro vider Source Oct 30, 2023 03:32 PM Outpatient Encounter PRIMARY CARE/MEDICINE IHE Encounter [...] REHAB MEDICIN E [facility] [place] [facility] Nov 11, 2023 10:00 AM AMBULATORY - MEDICINE [place] [facility] [place] [facility] Nov 24, 2023 09:30 AM AMBULATORY - MEDICINE [place] [facility] [facility] Nov 26, 2023 10:30 AM AMBULATORY - REHAB MEDICIN E [place] Dec 01, 2023 09:45 AM AMBULATORY - MEDICINE [place] [facility] [facility] Dec 01, 2023 03:30 PM AMBULATORY - REHAB MEDICIN E [place] Dec 08, 2023 09:00 AM AMBULATORY - REHAB MEDICIN E [place] January 05, 2024 01:00 PM AMBULATORY - REHAB MEDICIN E [facility] [place] [facility] Jan 15, 2024 09:30 AM AMBULATORY - REHAB MEDICIN E [place] Feb 23, 2024 09:00 AM AMBULATORY - MEDICINE [place] [facility] [place] [facility] Feb 25, 2024 01:00 PM AMBULATORY - REHAB MEDICIN E [facility] [place] [facility] Mar 21, 2024 10:00 AM AMBULATORY - MEDICINE [place] [facility] [place] [facility] Mar 24, 2024 01:00 PM AMBULATORY - MEDICINE [place] [facility] [place] [facility] Apr 06, 2024 10:00 AM [facility] Lab Results: +/- 30 days of the encounter This section includes the Chemistry and Hematology Lab Results on record with [place] for the patient. Radiology Reports and Pathology Reports are provided separately, in subsequent sections. Lab Results This section contains the Chemistry/Hematology Results that were resulted 30 days before or 30 daysafter the date of the Encounter. Date/Time Source Result Type Result - Unit Interpretation Reference Range Comment Nov 09, 2023 08:51 AM [facility] [place] [facility] LIPID PANEL FASTING Specimen Type: SERUM No comment entered. Ordering Provider: EHSAN OVALLES Report Released Date/Time: May 12, 2023 10:46 AM Reporting Lab: [address] [address] Performing Lab: [facility] [address] [facility] [address] CHOLESTEROL 286 mg/dL H TRIGLYCERIDE 111 mg/dL 0-150 LDL calculated 226 mg/dL H 0-129 CHOL/HDL 7.5 HDL CHOLESTEROL 38 mg/dL L 40-60 Nov 09, 2023 08:51 AM [facility] LIVER FUNCTION Specimen Type: SERUM No comment entered. Ordering Provider: EHSAN OVALLES Report Released Date/Time: May 12, 2023 10:46 AM Reporting Lab: [facility] [address] [facility] [address] Performing Lab: [address] [address] PROTEIN,TOTAL 7.2 g/dL 6.0-8.3 ALBUMIN 4.0 g/dL 3.5-5.0 ALKALINE PHOSPHATASE 68 U/L 40-150 AST 21 U/L 5-34 ALT 40 U/L BILIRUBIN, TOTAL 0.6 mg/dL 0.2-1.2 Nov 09, 2023 08:51 AM [facility] BASIC METABOLIC PANEL (fasting) Specimen Type: SERUM No comment entered. Ordering Provider: EHSAN OVALLES Report Released Date/Time: May 12, 2023 10:46 AM Reporting Lab: [address] [address] Performing Lab: [address] [address] UREA NITROGEN 25 mg/dL 7-25 GLUCOSE 97 [...] Jose ity May 12, 2023 10:46 AM ME-TOBACCO NEVER USED [facility] Tobacco [...] FLUOROSCOPIC [place] NCE OF NEEDLE/SPINE: COLBY HARTLEY [id number] -1970 M Ex Date: SEP 30, 2023@10:26 Req Phys: YAIR FALCON Loc: CWM/NO/MED REHAB/SPINE INJ (Re Img Loc: [facility]/BUILDING 1 Service: Unknown (Case [id number] COMPLETE) FLUOROSCOPIC GUIDANCE OF NEEDLE/S(RAD Detailed) CPT:17573 Reason for Study: transforaminal epidural steroid injection Clinical History: Report Status: Verified Date Reported: SEP 30, 2023 Date Verified: SEP 30, 2023 Fractionating Still Operator E-Sig:/ES/GREG OLIVIER JR Report: Study: Pain [...] OLIVIER JR, Radiologist ([place]) /[facility] Encounter Notes: All associated encounter notes This section contains the clinical notes associated to the Encounter. Date/Time Encounter Note(s) Provider Source Oct 30, 2023 03:32 PM PRIMARY CARE TELEP HELLEN ENCOUNTER NOTE: LOCAL TITLE: TELEPHONE NOTE/PRIMARY CARE STANDARD TITLE: PRIMARY CARE TELEPHONE ENCOUNTER NOTE DATE OF NOTE: OCT 30, 2023@15:32 ENTRY DATE: OCT 30, 2023@15:32:55 AUTHOR: LATASHA BARON EXP COSIGNER: URGENCY: STATUS: COMPLETED S/W VET RE FBW PRIOR TO APPT ON 11/10 /dheeraj/ LATASHA BARON ADVANCED TATTOO AND BODY ARTIST Signed: 10/30/2023 15:33 LATASHA BARON [place]
--- OUTSIDE RECORDS SUMMARY | 2024-08-18 10:06 | XMS_ITS | Encounter Summary ---
Author Name [facility] [place] Organization [place] Address [address] [place] [address] Care Team Providers Care Offset Second Press Operator Name Role Phone EHSAN OVALLES Primary [...] PART A December 08, 2013 PART A [id number] [id number] BRIGID RAMOS PATIENT MEDICARE (WNR) MEDICARE (M) PART A December 08, 2013 PART A [id number] [phone] [id number] BRIGID RAMOS PATIENT Selected Encounter This section includes the information on record at [place] for the Encounter. Date/Time Encounter Type Encounter Description Reason Pro vider Source Sep 25, 2023 12:00 PM Outpatient Encounter COMMUNITY CARE [...] 29, 2023 10:00 AM AMBULATORY - MEDICINE [place] [facility] [place] [facility] Sep 30, 2023 10:00 AM AMBULATORY - REHAB MEDICIN E [facility] [place] [facility] Oct 21, 2023 11:45 AM AMBULATORY - MEDICINE [place] [facility] [place] [facility] Nov 05, 2023 01:00 PM AMBULATORY - REHAB MEDICIN E [facility] [place] [facility] Nov 11, 2023 10:00 AM AMBULATORY - MEDICINE [place] [facility] [place] [facility] Nov 24, 2023 09:30 AM AMBULATORY - MEDICINE [place] [facility] [place] [facility] Nov 26, 2023 10:30 AM AMBULATORY - REH[place] MEDICIN [place] Dec 01, 2023 09:45 AM AMBULATORY - MEDICINE [place] [facility] [place] [facility] Dec 01, 2023 03:30 PM AMBULATORY - REHAB MEDICIN [place] Dec 08, 2023 09:00 AM AMBULATORY - REHAB MEDICIN [place] January 05, 2024 01:00 PM AMBULATORY - REHAB MEDICIN E [facility] [place] [facility] Jan 15, 2024 09:30 AM AMBULATORY - REHAB MEDICIN E [place] Feb 23, 2024 09:00 AM AMBULATORY - MEDICINE [place] [facility] [place] [facility] Feb 25, 2024 01:00 PM AMBULATORY - REHAB MEDICIN E [facility] [place] [facility] Mar 21, 2024 10:00 AM AMBULATORY - MEDICINE [place] [facility] [facility] Mar 24, 2024 01:00 PM AMBULATORY - MEDICINE [place] [facility] [facility] Social History: Smoking Status [...] 12, 2023 10:46 AM VA-TOBACCO NEVER USED [place] [facility] [place] [facility] Tobacco Use History This section includes a history of the smoking, or tobacco-related health factors, that were collected on or before the date of the Encounter. The data comes from the [place] facility where the Encounter took place. Date/Time Smoking Status/Tobacco Use Comment Trisha renae Oct 20, 2015 10:30 AM LIFETIME NON-TOBACCO USER [facility] Sep 19, 2009 11:13 AM LIFETIME NON-TOBACCO USER [facility] Advance Directives: All historical and current [...] Mar 22, 2018 ADVANCE DIRECTIVE JASWANT DICKINSON [facility] Radiology Reports: +/- 30 days of [...] FLUOROSCOPIC [place] NCE OF NEEDLE/SPINE: COLBY HARTLEY [id number] -1970 M Ex Date: SEP 30, 2023@10:26 Req Phys: YAIR FALCON Pat Loc: CWM/NO/MED REHAB/SPINE INJ (Re Img Loc: [facility]/BUILDING 1 Service: Unknown (Case 100 COMPLETE) FLUOROSCOPIC GUIDANCE OF NEEDLE/S(RAD Detailed) CPT:39895 Reason for Study: transforaminal epidural steroid injection Clinical History: Report Status: Verified Date Reported: SEP 30, 2023 Date Verified: SEP 30, 2023 Manager Wastewater E-Sig:/ES/GREG OLIVIER JR Report: Study: Pain injection [...] Interpreting Staff: GREG OLIVIER JR, Radiologist (Manager Wastewater) /GREG GAITAN JR [facility] Sep 17, 2023 10:53 AM SPINE LUMBOSACRAL MIN 4 VIEWS: COLBY HARTLEY [id number] -[id number] M Exm Date: SEP 17, 2023@10:53 Req Phys: HUMAIRA PITTS Loc: CWM/NO/MEDICAL REHAB B (Req'g Img Loc: [facility] 1 Service: Unknown (Case [id number] COMPLETE) SPINE LUMBOSACRAL MIN 4 VIEWS (RAD Detailed) CPT:69633 Reason for Study: back pain with L3 left radiculopathy Clinical History: Report Status: Verified Date Reported: SEP 17, 2023 Date Verified: SEP 17, 2023 Manager Wastewater E-Sig:/ES/GREG OLIVIER JR Report: Study: AP and [...] Interpreting Staff: GREG OLIVIER JR, Radiologist (Manager Wastewater) /GREG GAITAN JR [facility] Sep 17, 2023 10:35 AM HIP 2-3 VIEWS(LEFT ) WITH OR WITHOUT PELVIS: COLBY HARTLEY [id number] -1970 M Exm Date: SEP 17, 2023@10:35 Req Phys: HUMAIRA PITTS Pat Loc: CWM/NO/MEDICAL REHAB B (Req'g Img Loc: [facility]/BUILDING 1 Service: Unknown (Case 255 COMPLETE) HIP 2-3 VIEWS(LEFT) WITH OR WITHO(RAD Detailed) CPT:08452 CPT Modifiers : LT LEFT SIDE Reason for Study: pain left hip referred to knee Clinical History: Report Status: Verified Date Reported: SEP 17, 2023 Date Verified: SEP 17, 2023 Manager Wastewater E-Sig:/ES/GREG OLIVIER JR Report: Study: AP view [...] Interpreting Staff: GREG OLIVIER JR, Radiologist (Manager Wastewater) /GREG GAITAN JR [facility] Encounter Notes: All associated encounter notes This section contains the clinical notes associated to the Encounter. Date/Time Encounter Note(s) Provider Source Sep 25, 2023 12:00 PM NONVA CONSULT: LOCAL TITLE: COMMUNITY CARE-CONSULT RESULT NOTE STANDARD TITLE: NONVA CONSULT DATE OF NOTE: SEP 25, 2023@12:00 ENTRY DATE: OCT 22, 2023@05:42:52 AUTHOR: REGINALDO WATTS EXP COSIGNER: URGENCY: STATUS: COMPLETED [facility] - Scanned Document SCANNED DOCUMENT SIGNATURE NOT REQUIRED Electronically Filed: 10/22/2023 by: REGINALDO VILLATORO [facility]
--- OUTSIDE RECORDS SUMMARY | 2024-08-18 10:06 | XMS_ITS | Encounter Summary ---
Author Name Department [place] Organization [facility] [place] Address [address] [place] [address] Care Team Providers Care Profiling Machine Operator Name Role Phone EHSAN OVALLES [...] PART A December 08, 2013 PART A [id number] [id number] BRIGID RAMOS PATIENT MEDICARE (WNR) MEDICARE (M) PART A December 08, 2013 PART A [id number] [id number] BRIGID RAMOS PATIENT Selected Encounter This section includes the information on record at [place] for the Encounter. Date/Time Encounter Type Encounter Description Reason Pro vider Source Nov 03, 2023 12:00 AM Outpatient Encounter COMMUNITY CARE [...] MEDICIN E [facility] [place] [facility] Nov 11, 2023 10:00 AM AMBULATORY - MEDICINE [place] [facility] [place] [facility] Nov 24, 2023 09:30 AM AMBULATORY - MEDICINE [place] [facility] [place] [facility] Nov 26, 2023 10:30 AM AMBULATORY - REHAB MEDICIN E [place] Dec 01, 2023 09:45 AM AMBULATORY - MEDICINE [place] [place] [facility] Dec 01, 2023 03:30 PM AMBULATORY - REHAB MEDICIN E [place] Dec 08, 2023 09:00 AM AMBULATORY - REHAB MEDICIN E [place] January 05, 2024 01:00 PM AMBULATORY - REHAB MEDICIN E [facility] [place] [facility] Jan 15, 2024 09:30 AM AMBULATORY - REHAB MEDICIN E [place] Feb 23, 2024 09:00 AM AMBULATORY - MEDICINE [place] [facility] [place] [facility] Feb 25, 2024 01:00 PM AMBULATORY - REHAB MEDICIN E [facility] [facility] Mar 21, 2024 10:00 AM AMBULATORY - MEDICINE [place] [facility] [place] [facility] Mar 24, 2024 01:00 PM AMBULATORY - MEDICINE [place] [facility] [place] [facility] Apr 06, 2024 10:00 AM AMBULATORY - MEDICINE [place] [facility] [facility] Lab Results: +/- 30 days [...] Range Comment Nov 09, 2023 08:51 [facility] [place] [facility] LIPID PANEL FASTING Specimen Type: SERUM No comment entered. Ordering Provider: EHSAN OVALLES Report Released Date/Time: May 12, 2023 10:46 AM Reporting [facility] [address] [address] Performing Lab: [facility] [address] [address] CHOLESTEROL 286 mg/dL H TRIGLYCERIDE 111 mg/dL 0-150 LDL calculated 226 mg/dL H 0-129 CHOL/HDL 7.5 HDL CHOLESTEROL 38 mg/dL L 40-60 Nov 09, 2023 08:51 AM [facility] LIVER FUNCTION Specimen Type: SERUM No comment entered. Ordering Provider: EHSAN OVALLES Report Released Date/Time: May 12, 2023 10:46 AM Reporting Lab: [facility] [address] [facility] [address] Performing Lab: [address] [address] PROTEIN,TOTAL 7.2 g/dL 6.0-8.3 ALBUMIN 4.0 g/dL 3.5-5.0 ALKALINE PHOSPHATASE 68 U/L 40-150 AST 21 U/L 5-34 ALT 40 U/L BILIRUBIN, TOTAL 0.6 mg/dL 0.2-1.2 Nov 09, 2023 08:51 AM [facility] BASIC METABOLIC PANEL (fasting) Specimen Type: SERUM No comment entered. Ordering Provider: EHSAN OVALLES Report Released Date/Time: May 12, 2023 10:46 AM Reporting Lab: [address] [address] Performing Lab: [address] [address] UREA NITROGEN 25 mg/dL 7-25 GLUCOSE 97 [...] 12, 2023 10:46 AM VA-TOBACCO NEVER USED [facility] Tobacco Use History This section includes a history of the smoking, or tobacco-related health factors, that were collected on or before the date of the Encounter. The data comes from the [place] facility where the Encounter took place. Date/Time Smoking Status/Tobacco Use Comment F acility Oct 20, 2015 10:30 AM LIFETIME NON-TOBACCO USER [facility] Sep 19, 2009 11:13 AM LIFETIME NON-TOBACCO USER [facility] Advance Directives: All historical and current Section [...] 22, 2018 ADVANCE DIRECTIVE JASWANT DICKINSON [facility] Encounter Notes: All associated encounter notes This section contains the clinical notes associated to the Encounter. Date/Time Encounter Note(s) Provider Source Nov 03, 2023 12:00 AM NONVA CONSULT: LOCAL TITLE: COMMUNITY CARE-CONSULT RESULT NOTE STANDARD TITLE: NONVA CONSULT DATE OF NOTE: NOV 03, 2023 ENTRY DATE: NOV 05, 2023@11:17:08 AUTHOR: SHANE PHILLIPS EXP COSIGNER: URGENCY: STATUS: COMPLETED Vist[facility] Imaging - Scanned Document SCANNED DOCUMENT SIGNATURE NOT REQUIRED Electronically Filed: 11/05/2023 by: SHANE PHILLIPS CLINICAL TRIAL LEADER SHANE PHILLIPS [facility]
== END 2024-08-18 10:15 | disposition home or self-care (01) ==
PROVIDERS: PCP Family Medicine; Visit Provider Orthopaedic Surgery
DX: M25.562 Pain in left knee (principal)
CPT/HCPCS: 99213; G2211

== ENCOUNTER → 2024-08-18 09:39 | Outpatient (BNVA) | payer OTHER, SELFPAY | PROVIDERS: PCP Family Medicine; Visit Provider Orthopaedic Surgery | DX: M25.562 Pain in left knee (principal) | CPT/HCPCS: 99212 ==

== ENCOUNTER 2024-10-25 09:53 | Outpatient (AMB) | payer OTHER, SELFPAY ==
--- NOTE | 2024-10-25 10:11 | A.OFFVIS_ITS ---
Vital Signs 10/25/24 10:12 Height 6 ft 1 in Weight 330 lb BMI 43.5 Intake Visit Reasons: Inj-Left knee Euflexxa #1 Intake Note: Donell is a 54 year old male who presents with complaints of progressively worsening left knee pain. He describes his pain as sharp in nature. His pain has gotten worse over the last few months in spite of continued non operative treatments. He has had cortisone injections in the past which gave minimal relief. He has also tried Tylenol and anti-inflammatory medicines which gave him only mild relief. Allergies Penicillins Allergy (Unknown, Verified 10/25/24 10:12) CHILDHOOD Medication List - Last Reconciled 10/25/24 by Mart Garcia MD albuterol sulfate 90 mcg/actuation 2 puffs inhalation Q4-6H PRN allopurinol 100 mg PO USEASDIRECTD cholecalciferol (vitamin D3) 2,000 mcg PO DAILY fluticasone propion-salmeterol 500-50 mcg/dose (Wixela Inhub) 1 inh inhalation DAILY losartan 100 mg PO DAILY montelukast 10 mg PO DAILY naproxen 500 mg PO BID omeprazole 20 mg PO BID pregabalin 100 mg PO BID sildenafil 100 mg PO DAILY PRN PFSH Medical History Lesion of throat Hypertension Sleep apnea Acid reflux Asthma Surgical History History of surgery of head S/P nasal surgery H/O carpal tunnel repair H/O shoulder surgery H/O elbow surgery History of ankle surgery Social History Are you a primary home health care provider to a significant other at home: No Do you presently have visiting nurse or other home services: No Patient Tobacco Use Status: Never used Tobacco Current occupational status: disabled Physical Exam Vital Signs: BMI result Body Mass Index 43.5 Const Other: Well-nourished well-developed very friendly male awake alert and oriented x3 in no acute distress Extrem Other: Bilateral lower extremity examination shows good capillary refill, no skin lesions noted, normal sensation light touch Left knee examination shows a moderate effusion, palpable crepitus with range of motion, pain with range of motion, no instability Office Procedures AMB Joint Injection/Aspiration Joint Injection/Aspiration Primary Site: left knee Prep: site was prepped using aseptic technique Injected: 20 mg of (Euflexxa viscosupplementation) and 1% plain lidocaine Procedure: The patient tolerated the procedure well Coding - Large joint Procedure code (CPT) selection complete Results Reviewed Results Reviewed: X-rays of the patient's left knee show joint space narrowing, subchondral sclerosis, no acute bony abnormalities Assessment & Plan Assessment & Plan (1) Osteoarthritis of left knee: Code(s): M17.12 - Unilateral primary osteoarthritis, left knee Category: Medical Plan Mr. Tracy presents with left knee pain due to osteoarthritis. The risks and benefits of a series of Euflexxa viscosupplementation injections were discussed at length with the patient. The patient wished to proceed. Tolerated the 1st injection well. He will continue with his home exercise program. He will follow up next week as scheduled for his 2nd injection. Feel free to call me at any time should questions regarding his orthopedic management arise. I spent 21 minutes in reviewing the patient's records and imaging studies, seeing the patient and documenting in the medical record. Orders: Orders AMB Joint Injection/Aspiration Today M17.12 - Unilateral primary osteoarthritis, left knee Coding Level of Care Code Est Pt Level 3 (64433) Complex EM visit Add On G2211 Diagnoses Osteoarthritis of left knee M17.12 CPT Codes Coding - 63203 Large joint: 87372 - Large joint ([id number])
[2024-10-25 10:12] VITALS: BMI 43.5
--- OUTSIDE RECORDS SUMMARY | 2024-10-25 11:05 | XMS_ITS | Encounter Summary ---
Author Name [facility] [place] Organization [place] Address [address] [place] [address] Care Team Providers Care Recycling Worker Name Role Phone EHSAN OVALLES Primary [...] PART A December 08, 2013 PART A [id number] BRIGID RAMOS PATIENT MEDICARE (WNR) MEDICARE (M) PART A December 08, 2013 PART A [id number] BRIGID RAMOS PATIENT MEDICARE (WNR) MEDICARE (M) PART A December 08, 2013 PART A [id number] 62A BRIGID RAMOS PATIENT MEDICARE (WNR) MEDICARE (M) PART A December 08, 2013 PART A [id number] BRIGID RAMOS PATIENT Selected Encounter This section includes the information on record at [place] for the Encounter. Date/Time Encounter Type Encounter Description Reason Pro vider Source Oct 10, 2024 01:50 PM Outpatient Encounter COMMUNITY CARE CONSULT IHE Encounter Template Text not used by VA Plan of Treatment: Future Appointments (+ 6 months) and Future Tests (+/- 45 days) The Plan of Treatment section includes [facility] care activities for the [facility] [place] [facility] This section includes future appointments and future orders which are active, pending or scheduled. Future Appointments This section includes appointments that were scheduled to occur 6 months from the date of the Encounter, up to a maximum of 20 appointments. The data comes from all [place] treatment facilities. Appointment Date/Time Appointment Type Appointme nt Facility Name Oct 13, 2024 09:00 AM AMBULATORY - MEDICINE [place] [facility] [place] [facility] Oct 25, 2024 10:00 AM AMBULATORY - MEDICINE [place] [facility] [place] [facility] Nov 01, 2024 11:30 AM AMBULATORY - MEDICINE [place] [place] [facility] Nov 14, 2024 09:30 AM AMBULATORY - NONE [place] [facility] [place] [facility] December 26, 2024 09:30 AM AMBULATORY - NONE [place] [facility] [place] [facility] Feb 28, 2025 10:00 AM AMBULATORY - MEDICINE [place] [place] [facility] Apr 12, 2025 10:00 AM AMBULATORY - MEDICINE [place] [facility] [place] [facility] Active, Pending, and Scheduled Orders This section includes a listing of several types of active, pending, and scheduled orders, including clinic medications orders, diagnostic test orders, procedure orders and consult orders; where thestart date of the order is 45 days before the date of the Encounter or 45 days after the date of the Encounter. The data comes from all [place] treatment [facility]. Test Date/Time Test Type Test Details Facility Name Aug 30, 2024 12:11 PM Consult Order DENTAL CON SULT OUTPT Cons Signals Intelligence Analyst's Choice [place] [facility] [place] [facility] Aug 30, 2024 12:33 PM Consult Order COMMUNITY CARE-DENTAL GENERAL Cons Signals Intelligence Analyst's Choice [place] [facility] [place] [facility] Sep 25, 2024 11:32 AM Consult Order COMMUNITY CARE-RADIOLOGY XRAY Cons Signals Intelligence Analyst's Choice [facility] [place] [facility] Sep 27, 2024 09:40 AM Consult Order COMMUNITY CARE-COLONOSCOPY Cons Signals Intelligence Analyst's Choice [facility] [place] [facility] Oct 10, 2024 03:55 PM Consult Order COMMUNITY CARE-ORTHO SURGICAL Cons Signals Intelligence Analyst's Choice [facility] Social History: Smoking Status (Most current) [...] place. Date/Time Smoking Status/Tobacco Use Comment Trisha batool Oct 20, 2015 10:30 AM LIFETIME [...] DIRECTIVE JASWANT DICKINSON [facility] Encounter Notes: All associated encounter notes This section contains the clinical notes associated to the Encounter. Date/Time Encounter Note(s) Provider Source Oct 10, 2024 01:50 PM NONVA NOTE: LOCAL TITLE: COMMUNITY CARE-REQUEST FOR SERVICE NOTE STANDARD TITLE: NONVA NOTE DATE OF NOTE: OCT 10, 2024@13:50 ENTRY DATE: OCT 10, 2024@13:50:38 AUTHOR: KERRY AKHTAR COSIGNER: URGENCY: STATUS: COMPLETED Request for Services (RFS) documentation has been sent for scanning to [facility] Community Care Consult: COMMUNITY CARE-Orthopedics Date sent to scanning: Oct A Request for Service (RFS) form [id number] has been received which includes the following: Care Requested:Continued outpatient care ICD-10 Dx code: M25.562 Date VA received request: Oct Date service required: Sep No appointment scheduled as of this time. Requesting Community Provider Information: Name of Ordering Provider: Mart Garcia Office:[facility] Address, City, State: [address] [place] [address], [address], [place] [address] /es/ KERRY AKHTAR, SUNIL, BSN REGISTERED NURSE Signed: 10/10/2024 14:22 Receipt Acknowledged By: 10/11/2024 09:10 /es/ TAMEKA DOSS RN REGISTERED NURSE 10/10/2024 15:56 /es/ EHSAN OVALLES MD Primary Care Physician KERRY AKHTAR [facility]
--- OUTSIDE RECORDS SUMMARY | 2024-10-25 11:05 | XMS_ITS ---
Author Name [facility] [facility] [place] Address [address] [place] [address] Care Team Providers Care Program Director Name Role Phone EHSAN OVALLES [...] PART A December 08, 2013 PART A [id number] BRIGID RAMOS PATIENT MEDICARE (WNR) MEDICARE (M) PART A December 08, 2013 PART A [id number] [phone] BRIGID RAMOS PATIENT MEDICARE (WNR) MEDICARE (M) PART A December 08, 2013 PART A [id number] 62A BRIGID RAMOS PATIENT MEDICARE (WNR) MEDICARE (M) PART A December 08, 2013 PART A [id number] [phone] BRIGID RAMOS PATIENT Selected Encounter This section includes the information on record at [place] for the Encounter. Date/Time Encounter Type Encounter Description Reason Provider Source Jul 27, 2024 02:30 PM OFFICE O/P EST HI 40 MIN PM&RS PHYSICIAN ICD-10-CM M54.16 Radiculopathy , lumbar region YAIR FALCON IHE Encounter Template Text not used by [place] Assessments - Encounter Diagnoses This section includes the primary and secondary diagnoses documented for the Encounter. Date/Time Primary/Secondary Diagnosis Diagnosis Name Provider Source Jul 27, 2024 03:47 PM PRIMARY Radiculopathy, lumbar region YAIR FALCON [facility] Plan of Treatment: Future Appointments (+ 6 months) and Future Tests (+/- 45 days) The Plan of Treatment section includes future care activities for the patient from all [place] [facility] This section includes future appointments and future orders which are active, pending or scheduled. Future Appointments This section includes appointments that were scheduled to occur 6 months from the date of the Encounter, up to a maximum of 20 appointments. The data comes from all [place] treatment [facility]. Appointment Date/Time Appointment Type Appointme nt Facility Name Aug 30, 2024 11:00 AM AMBULATORY - MEDICINE [facility] [place] [facility] Sep 14, 2024 01:00 PM AMBULATORY - REHAB MEDICIN [place] [facility] [place] [facility] Oct 13, 2024 09:00 AM AMBULATORY - MEDICINE [facility] [place] [facility] Oct 25, 2024 10:00 AM AMBULATORY - MEDICINE [facility] [place] [facility] Nov 01, 2024 11:30 AM AMBULATORY - MEDICINE [facility] [place] [facility] Nov 14, 2024 09:30 AM AMBULATORY - NONE [place] [facility] [place] [facility] December 26, 2024 09:30 AM AMBULATORY - NONE [facility] [place] [facility] Active, Pending, and Scheduled Orders This [...] Consult Order DENTAL CON SULT OUTPT Cons [facility] [place] [facility] Aug 30, 2024 12:33 PM Consult Order COMMUNITY CARE-DENTAL GENERAL Cons Therapeutic Dietitian's Choice [facility] Lab Results: +/- 30 days of the encounter This section includes the Chemistry and Hematology Lab Results on record with [place] for the patient. Radiology Reports and Pathology Reports are provided separately, in subsequent sections. Lab Results This section contains the Chemistry/Hematology Results that were resulted 30 days before or 30 daysafter the date of the Encounter. Date/Time Source Result Type Result - Unit Interpretation Reference Range Comment Aug 26, 2024 07:39 AM [facility] LIPID PANEL FASTING Specimen Type: SERUM No comment entered. Ordering Provider: EHSAN OVALLES Report Released Date/Time: May 31, 2024 12:43 PM Reporting Lab: [address] [address] Performing Lab: [address] [address] CHOLESTEROL 140 mg/dL TRIGLYCERIDE 58 mg/dL 0-150 LDL calculated 85 mg/dL 0-129 CHOL/HDL 3.3 HDL CHOLESTEROL 43 mg/dL 40-60 Aug 26, 2024 07:39 AM [facility] LIVER FUNCTION Specimen Type: SERUM No comment entered. Ordering Provider: EHSAN OVALLES Report Released Date/Time: May 31, 2024 12:43 PM Reporting Lab: [address] [address] Performing Lab: [address] [address] PROTEIN,TOTAL 7.2 g/dL 6.0-8.3 ALBUMIN 4.0 g/dL 3.5-5.0 ALKALINE PHOSPHATASE 58 U/L 40-150 AST 21 U/L 5-34 ALT 30 U/L BILIRUBIN, TOTAL 0.6 mg/dL 0.2-1.2 Aug 26, 2024 07:39 AM [facility] BASIC METABOLIC PANEL (fasting) Specimen Type: SERUM No comment entered. Ordering Provider: EHSAN OVALLES Report Released Date/Time: May 31, 2024 12:43 PM Reporting Lab: [address] [place] [address] Performing Lab: [facility] [address] [facility] [address] UREA NITROGEN 22 mg/dL 7-25 GLUCOSE 97 mg/dL 65-100 SODIUM 140 mmol/L 135-145 POTASSIUM 4.3 mmol/L 3.5-5.0 CHLORIDE 108 mmol/L 100-110 CO2 24 meq/L 20-30 CREATININE, Serum 1.01 mg/dL 0.50-1.40 eGFR(CKD-EPI 2020) 89 mL/min >60 Vital Signs: All taken on the encounter date This section contains inpatient and outpatient Vital Signs collected on the date of the Encounter. Date/Time Temperature Pulse Blood Pressure Respiratory Rate SP02 Pain Height Weight Body Mass Index Source Jul 27, 2024 03:22 PM 80 150/100 96 1 [facility] Jul 27, 2024 02:40 PM 140/80 [facility] Jul 27, 2024 02:31 PM 93 150/100 18 97 7 [facility] Social History: Smoking Status (Most current) [...] 12, 2023 10:46 AM VA-TOBACCO NEVER USED [facility] Tobacco Use History This section includes a history of the smoking, or tobacco-related health factors, that were collected on or before the date of the Encounter. The data comes from the [place] facility where the Encounter took place. Date/Time Smoking Status/Tobacco Use Comment Trisha acyonatan Oct 20, 2015 10:30 AM LIFETIME NON-TOBACCO USER [facility] Sep 19, 2009 11:13 AM LIFETIME NON-TOBACCO USER [facility] Advance Directives: All historical and current [...] Mar 22, 2018 ADVANCE DIRECTIVE [facility] Radiology Reports: +/- 30 days of [...] the Encounter. The data comes from all [place] treatment facilities. Date/Time Radiology Report Provider Source Jul 27, 2024 02:52 PM FLUOROSCOPIC [place] NCE OF NEEDLE/SPINE: COLBY HARTLEY [id number] -[id number] M Exm Date: JUL 27, 2024@14:52 Req Phys: TERRIEYAIR YIP [facility] Loc: CWM/NO/MED REHAB/SPINE INJ (Re Img Loc: [facility] [place] 1 Service: Unknown [place] [id number] (Case [id number] COMPLETE) FLUOROSCOPIC GUIDANCE OF NEEDLE/S(RAD Detailed) CPT:03605 Reason for Study: transforaminal epidural steroid injection Clinical History: Report Status: Verified Date Reported: JUL 27, 2024 Date Verified: JUL 27, 2024 Aircraft Quality Control Inspector E-Sig:/ES/GREG OLIVIER JR Report: Study: Pain injection [...] Primary Interpreting Staff: GREG OLIVIER JR, Radiologist (Aircraft Quality Control Inspector) /GREG GAITAN JR [facility] Encounter Notes: All associated encounter notes This section contains the clinical notes associated to the Encounter. Date/Time Encounter Note(s) Provider Source Jul 27, 2024 03:31 PM PHYSICAL MEDICINE REHAB NOTE: LOCAL TITLE: PM&R BACK/JOINT PROCEDURE NOTE STANDARD TITLE: PHYSICAL MEDICINE REHAB NOTE DATE OF NOTE: JUL 27, 2024@15:31 ENTRY DATE: JUL 27, 2024@15:31:53 AUTHOR: YAIR FALCON TH EXP COSIGNER: URGENCY: STATUS: COMPLETED PROCEDURE NOTE: LUMBAR/SACRAL TRANSFORAMINAL EPIDURAL STEROID INJECTION PROCEDURE: 1) Left L3-4 and right S1 transforaminal epidural steroid injection 2) Fluoroscopic needle guidance REASON FOR PROCEDURE: Lumbar radiculopathy PHYSICIAN: Yair Falcon DO MEDICATIONS INJECTED: 5mg of Dexamethasone + 1 ml of 1% Lidocaine at each level. Total dexamethasone: 10mg Lot #: [id number] Exp: LOCAL ANESTHETIC INJECTED: 1 mL of [...] lateral thigh. Pain has been upwards of 9/10 despite taking Belbuca, oxycodone prn, naproxen prn, [...] 2024@14:51 correctly stated: [X]Full name: COLBY HARTLEY II [...] after the procedure. The patient (or responsible republican) was given post-procedure and discharge instructions to [...] of active outpatient prescriptions dispensed from this [place] (local) and dispensed from another [place] or [facility] facility (remote) as well as inpatient orders [...] or non-VA provider. /dheeraj/ YAIR FALCON DO TRAY WORKER Signed: 07/27/2024 15:47 YAIR FALCON [place] [facility] [place] [facility] Jul 27, 2024 03:30 PM DISCHARGE NOTE: [...] are experiencing problems contact: TELEPHONE ASSISTANCE at [phone] or extension [phone] Or [phone] extension [phone] (HANNA Rowan) or extension [phone] (SUNIL Albarado) If you are in an emotional crisis, feeling suicidal or having any troubling or self-destructive or violent impulses - please call [phone] (or [phone]); press 1 for Veterans to ask for [...] time of discharge. /dheeraj/ YAIR FALCON DO TRAY WORKER Signed: 07/27/2024 15:31 YAIR FALCON [place] [facility]
--- OUTSIDE RECORDS SUMMARY | 2024-10-25 11:05 | XMS_ITS | Encounter Summary ---
Author Name [facility] [place] [facility] [place] Address [address] [place] [address] Care Team Providers Care Remote Sensing Engineer Name Role Phone EHSAN OVALLES Primary Care [...] PART A December 08, 2013 PART A [id number] BRIGID RAMOS PATIENT MEDICARE (WNR) MEDICARE (M) PART A December 08, 2013 PART A [id number] BRIGID RAMOS PATIENT MEDICARE (WNR) MEDICARE (M) PART A December 08, 2013 PART A [id number] [phone] [id number] BRIGID RAMOS PATIENT MEDICARE (WNR) MEDICARE (M) PART A December 08, 2013 PART A [id number] [phone] BRIGID RAMOS PATIENT Selected Encounter This section includes the information on record at [place] for the Encounter. Date/Time Encounter Type Encounter Description Reason Provider Source May 31, 2024 11:30 AM OFFICE O/P EST MOD 30 MIN PRIMARY CARE/MEDICINE ICD-10-CM I10 Essential (primary) hypertension EHSAN OVALLES Encounter Template Text not used by [place] Assessments - Encounter Diagnoses This section includes the primary and secondary diagnoses documented for the Encounter. Date/Time Primary/Secondary Diagnosis Diagnosis Name Provider Source May 31, 2024 11:44 AM PRIMARY Essential (primary) hypertension MARILYN VALLECILLO LUNING May 31, 2024 11:44 AM SECONDARY Hyperlipidemia, unspecified MARILYN VALLECILLO LUNING May 31, 2024 11:44 AM SECONDARY Left bundle-branch block, unspecified MARILYN VALLECILLO LUNING May 31, 2024 11:44 AM SECONDARY Obesity, unspecified MARILYN VALLECILLO LUNING May 31, 2024 11:44 AM SECONDARY Pain in left knee RUTH ANNMARILYN Salazar LUNING Plan of Treatment: Future Appointments (+ 6 months) and Future Tests (+/- 45 days) The Plan of Treatment section includes future care activities for the patient from all [place] treatmentfacilities. This section includes future appointments and [...] 03, 2024 09:50 AM AMBULATORY - MEDICINE [place] [facility] Jun 07, 2024 11:30 AM AMBULATORY - NONE [place] [facility] [place] [facility] Jul 05, 2024 01:30 PM AMBULATORY - MEDICINE [place] [facility] [place] [place] [facility] Jul 27, 2024 02:30 PM AMBULATORY - REHAB MEDICIN E [facility] [place] [facility] Aug 30, 2024 11:00 AM AMBULATORY - MEDICINE [place] [facility] [place] [place] [facility] Sep 14, 2024 01:00 PM AMBULATORY - REHAB MEDICIN E [facility] [place] [facility] Oct 13, 2024 09:00 AM AMBULATORY - MEDICINE [place] [facility] [place] [place] [facility] Oct 25, 2024 10:00 AM AMBULATORY - MEDICINE [place] [facility] [place] [facility] Nov 01, 2024 11:30 AM AMBULATORY - MEDICINE [place] [facility] [place] [place] [facility] Nov 14, 2024 09:30 AM AMBULATORY - NONE [facility] Lab Results: +/- 30 days of the [...] Range Comment May 12, 2024 07:53 AM [facility] METHADONE SCREEN Specimen Type: URINE Comment: MALCOLM test are qualitative, any L or H flags only indicate a VA alert was sent. Ordering Provider: DEE DEE WILSON Report Released Date/Time: May 11, 2024 03:52 PM Reporting Lab: [facility] [address] [facility] [address] Performing Lab: [facility] [address] [facility] [address] METHADONE SCREEN None detected(Nega tive) L Negative May 12, 2024 07:53 AM [facility] ALCOHOL, ETHYL URINE PANEL Specimen Type: URINE [...] May 11, 2024 03:52 PM Reporting Lab: [facility] [address] [facility] [address] Performing Lab: [address] [address] ALCOHOL, ETHYL URINE NONE-DETECTED mg/dL NONE-DETEC AMANDA, cutoff = 10 mg/dL PH, MALCOLM 5.6 [pH] 4-10 CREATININE, MALCOLM 162.14 mg/dL >20 SP.GRAVITY, MALCOLM 1.021 H 1.00 3-1.02 0 May 12, 2024 07:53 AM [facility] AMPHETAMINES SCREEN PANEL Specimen Type: URINE Comment: [...] May 11, 2024 03:52 PM Reporting Lab: [address] [address] Performing Lab: [address] [address] AMPHETAMINES SCREEN NONE-DETECTED None-Detec amanda, Cutoff = 1000 ng/mL PH, MALCOLM 5.6 [pH] 4-10 CREATININE, MALCOLM 162.14 mg/dL >20 SP.GRAVITY, MALCOLM 1.021 H 1.00 3-1.02 0 May 12, 2024 07:53 AM [facility] FENTANYL SCREEN PANEL Specimen Type: URINE Comment: [...] May 11, 2024 03:52 PM Reporting Lab: [address] [address] Performing Lab: [address] [address] FENTANYL SCREEN NONE-DETECTE D ng/mL Negative: Cutoff = 1.00 ng/mL PH, MALCOLM 5.6 [pH] 4-10 CREATININE, MALCOLM 156.70 mg/dL >20 SP.GRAVITY, MALCOLM 1.020 1.00 3-1.02 0 May 12, 2024 07:53 AM [facility] BENZODIAZEPINES SCREEN PANEL Specimen Type: URINE Comment: [...] May 11, 2024 03:52 PM Reporting Lab: [address] [address] Performing Lab: [address] [address] BENZODIAZEPINES SCREEN NONE-DETECTED None-Detec amanda, Cutoff = 200 ng/mL PH, MALCOLM 5.6 [pH] 4-10 CREATININE, MALCOLM 162.14 mg/dL >20 SP.GRAVITY, MALCOLM 1.021 H 1.00 3-1.02 0 May 12, 2024 07:53 AM [facility] BUPRENORPHINE SCREEN PANEL Specimen Type: URINE Comment: [...] May 11, 2024 03:52 PM Reporting Lab: [address] [address] Performing Lab: [address] [address] BUPRENORPHINE (URINE) NONE-DETECTED None Detected, Cutoff = 10.0 ng/mL PH, MALCOLM 5.6 [pH] 4-10 CREATININE, MALCOLM 162.14 mg/dL >20 SP.GRAVITY, MALCOLM 1.021 H 1.00 3-1.02 0 May 12, 2024 07:53 AM [facility] CANNABINOIDS SCREEN PANEL Specimen Type: URINE Comment: [...] May 11, 2024 03:52 PM Reporting Lab: [address] [address] Performing Lab: [address] [address] CANNABINOIDS SCREEN NONE-DETECTED None-Detec amanda,Cutoff = 50 ng/mL PH, MALCOLM 5.6 [pH] 4-10 CREATININE, MALCOLM 162.14 mg/dL >20 SP.GRAVITY, MALCOLM 1.021 H 1.00 3-1.02 0 May 12, 2024 07:53 AM [facility] OPIATES SCREEN PANEL Specimen Type: URINE Comment: [...] May 11, 2024 03:52 PM Reporting Lab: [address] [address] Performing Lab: [address] [address] OPIATES SCREEN NONE-DETECTED N one-Detec amanda, Cutoff = 300 ng/mL PH, MALCOLM 5.6 [pH] 4-10 CREATININE, MALCOLM 162.14 mg/dL >20 SP.GRAVITY, MALCOLM 1.021 H 1.00 3-1.02 0 May 12, 2024 07:53 AM [facility] COCAINE SCREEN PANEL Specimen Type: URINE Comment: [...] May 11, 2024 03:52 PM Reporting Lab: [address] [address] Performing Lab: [address] [address] COCAINE SCREEN NONE-DETECTED N one-Detec amanda,Cutoff = 300 ng/mL PH, MALCOLM 5.6 [pH] 4-10 CREATININE, MALCOLM 162.14 mg/dL >20 SP.GRAVITY, MALCOLM 1.021 H 1.00 3-1.02 0 May 12, 2024 07:53 AM [facility] OXYCODONE SCREEN PANEL Specimen Type: URINE Comment: [...] May 11, 2024 03:52 PM Reporting Lab: [address] [address] Performing Lab: [address] [address] OXYCODONE SCREEN NONE-DETECTED None-Detec amanda, Cutoff = 100 ng/mL PH, MALCOLM 5.6 [pH] 4-10 CREATININE, MALCOLM 162.14 mg/dL >20 SP.GRAVITY, MALCOLM 1.021 H 1.00 3-1.02 0 May 12, 2024 07:47 AM [facility] HEMOGLOBIN A1C PANEL Specimen Type: BLOOD Comment: [...] Nov 11, 2023 05:57 AM Reporting Lab: [address] [address] Performing Lab: [address] [address] HEMOGLOBIN A1C 5.0 4.0-5.6 May 12, 2024 07:47 AM [facility] MAGNESIUM Specimen Type: SERUM No comment entered. Ordering Provider: EHSAN OVALLES Report Released Date/Time: Nov 11, 2023 05:57 AM Reporting Lab: [address] [address] Performing Lab: [address] [address] MAGNESIUM 2.0 mg/dL 1.6-2.6 May 12, 2024 07:47 AM [facility] URIC ACID Specimen Type: SERUM No comment entered. Ordering Provider: EHSAN OVALLES Report Released Date/Time: Nov 11, 2023 05:57 AM Reporting Lab: [address] [address] Performing Lab: [address] [address] URIC ACID 5.6 mg/dL 3.5-7.2 May 12, 2024 07:47 AM [facility] PSA Specimen Type: SERUM No comment entered. Ordering Provider: EHSAN OVALLES Report Released Date/Time: Nov 11, 2023 05:57 AM Reporting Lab: [facility] [place] [facility] [address] [facility] [address] Performing Lab: [facility] [address] [facility] [address] PSA 0.84 ng/mL 0.00-4.00 May 12, 2024 07:47 AM [facility] LIPID PANEL FASTING Specimen Type: SERUM No comment entered. Ordering Provider: EHSAN OVALLES Report Released Date/Time: Nov 11, 2023 05:57 AM Reporting Lab: [facility] [address] [facility] [address] Performing Lab: [facility] [address] [address] CHOLESTEROL 246 mg/dL H TRIGLYCERIDE 153 mg/dL H 0-150 LDL calculated 182 mg/dL H 0-129 CHOL/HDL 7.5 HDL CHOLESTEROL 33 mg/dL L 40-60 May 12, 2024 07:47 AM [facility] TSH Specimen Type: SERUM No comment entered. Ordering Provider: EHSAN OVALLES Report Released Date/Time: Nov 11, 2023 05:57 AM Reporting Lab: [facility] [address] [facility] [address] Performing Lab: [place] [facility] [facility] [facility] [address] [facility] [address] TSH 4.05 u[IU]/mL 0.35-5.00 May 12, 2024 07:47 AM [facility] LIVER FUNCTION Specimen Type: SERUM No comment entered. Ordering Provider: EHSAN OVALLES Report Released Date/Time: Nov 11, 2023 05:57 AM Reporting Lab: [facility] [address] [facility] [address] Performing Lab: [place] CN[place] TRN [facility] [address] [address] PROTEIN,TOTAL 6.6 g/dL 6.0-8.3 ALBUMIN 3.8 g/dL 3.5-5.0 ALKALINE PHOSPHATASE 59 U/L 40-150 AST 20 U/L 5-34 ALT 37 U/L BILIRUBIN, TOTAL 0.4 mg/dL 0.2-1.2 May 12, 2024 07:47 AM [facility] BASIC METABOLIC PANEL (fasting) Specimen Type: SERUM No comment entered. Ordering Provider: EHSAN OVALLES Report Released Date/Time: Nov 11, 2023 05:57 AM Reporting Lab: [address] [address] Performing Lab: [address] [address] UREA NITROGEN 22 mg/dL 7-25 GLUCOSE 88 mg/dL 65-100 SODIUM 141 mmol/L 135-145 POTASSIUM 4.4 mmol/L 3.5-5.0 CHLORIDE 108 mmol/L 100-110 CO2 23 meq/L 20-30 CREATININE, Serum 1.09 mg/dL 0.50-1.40 eGFR(CKD-EPI 2020) 82 mL/min >60 May 12, 2024 07:47 AM [facility] CBC AND DIFF (AUTO) Specimen Type: BLOOD No comment entered. Ordering Provider: EHSAN OVALLES Report Released Date/Time: Nov 11, 2023 05:57 AM Reporting Lab: [address] [address] Performing Lab: [address] [address] WBC 8.27 10*3/uL 4.50-11.00 RBC 5.05 10*6/uL [...] Current Smoking Status Comment Jose armstrong May 31, 2024 11:30 AM VA-TOBACCO NEVER USED LUNING Tobacco Use History This section includes a history of the smoking, or tobacco-related health factors, that were collected on or before the date of the Encounter. The data comes from the [place] facility where the Encounter took place. Date/Time Smoking Status/Tobacco Use Comment F acility May 26, 2022 10:00 AM VA-TOBACCO NEVER USED LUNING May 21, 2021 03:00 PM VA-TOBACCO NEVER USED LUNING Aug 08, 2019 11:05 AM VA-TOBACCO NEVER USED LUNING Jun 28, 2018 03:14 PM VA-TOBACCO NEVER USED LUNING May 28, 2017 08:56 AM LIFETIME NON-TOBACCO USER LUNING Advance Directives: All historical and current Section [...] Mar 22, 2018 ADVANCE DIRECTIVE JASWANT DICKINSON [place] [facility] Encounter Notes: All associated encounter notes This section contains the clinical notes associated to the Encounter. Date/Time Encounter Note(s) Provider Source Aug 23, 2024 11:26 AM PRIMARY CARE TELEP HELLEN ENCOUNTER NOTE: LOCAL TITLE: TELEPHONE NOTE/PRIMARY CARE STANDARD TITLE: PRIMARY CARE TELEPHONE ENCOUNTER NOTE DATE OF NOTE: AUG 23, 2024@11:26 ENTRY DATE: AUG 23, 2024@11:26:33 AUTHOR: TRACI MARSHALL EXP COSIGNER: URGENCY: STATUS: COMPLETED This is a reminder call for your upcoming PCP appt with EHSAN OVALLES and the need for a lab appointment for bloodwork prior to your upcoming appt. 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 Labs completed. 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 Left Bundle Branch Block: [...] - Htn/Lipids/WT ========= UPCOMING APPOINTMENTS: 06/03/2024 09:50 [facility] CARE-UROLOGY 04/12/2025 10:00 CWM/NO/OPTOMETRY/MERHAR No barriers; Patient [...] FACILITY ALLERGY/ADR -------- CLNCL/HLTH MADDY REPT EFF [id number] [place] [facility] [place] [facility] MELOX[facility] [facility] [place] [facility] MUSHROOMS [facility] [place] [facility] [place] [facility] [place] [facility] MUSHROOMS [place] [facility] PENICILLIN Med Recon NoGlossary (Tool #1) INCLUDED IN THIS LIST: Alphabetical list of active outpatient prescriptions dispensed from this [place] (local) and dispensed from another [place] or [facility] facility (remote) as well as inpatient orders (local pending and active), local clinic medications, locally documented non-VA medications, and local prescriptions that have or been discontinued in the past 90 days. Non-VA Meds Last Documented On: Data not found NOTE The display of VA prescriptions dispensed from another [place] or DoD facility (remote) is limited to active outpatient prescription entries matched to National Drug File at the originating site and may not include some items such as investigational drugs, compounds, etc. NOT INCLUDED IN THIS LIST: Medications self-entered by the patient into personal health records (i.e. Open Source Food) are NOT included in this list. Non-VA medications documented outside this [place], remote inpatient orders (regardless of status) and remote clinic medications are NOT included in this list. The patient and provider must always discuss medications the patient is taking, regardless of where the medication was dispensed or obtained. ------ OUTPT ACETAMINOPHEN 500MG TAB (Status = Discontinued) TAKE TWO TABLETS BY MOUTH THREE TIMES DAILY NEEDED FOR PAIN Rx# [id number] Last Released: 02/15/24 Qty/Days Supply: 20030 Rx Expiration Date: 03/11/24 Refills Remainin Indication: FOR PAIN OUTPT ACETAMINOPHEN 500MG TAB (Status = Active) TAKE TWO TABLETS BY MOUTH THREE TIMES DAILY NEEDED FOR PAIN Rx# [id number] Last Released: 05/30/24 Qty/Days Supply: 200/30 Rx Expiration Date: 03/25/25 Refills Remainin Indication: FOR PAIN OUTPT ALBUTEROL 90MCG (CFC-F) 200D ORAL INHL (Status = ) INHALE 2 PUFFS BY MOUTH FOUR TIMES DAILY NEEDED FOR SHORTNESS OF BREATH Rx# [id number] Last Released: 03/08/24 Qty/Days Supply: Rx Expiration Date: 05/12/24 Refills Remainin OUTPT BUPRENORPHINE 150MCG BUCCAL FILM (Status = Discontinued) PLACE ONE FILM BETWEEN CHEEK AND GUM UNTIL DISSOLVED THREE TIMES A DAY FOR PAIN Rx# [id number] Last Released: 02/13/24 Qty/Days Supply: 90 Rx Expiration Date: 06/24/24 Refills Remainin Indication: FOR PAIN OUTPT BUPRENORPHINE 300MCG BUCCAL FILM (Status = Active) PLACE ONE FILM BETWEEN CHEEK AND GUM UNTIL DISSOLVED TWICE DAILY FOR PAIN Rx# [id number] Last Released: 05/30/24 Qty/Days Supply: 60 Rx Expiration Date: 09/24/24 Refills Remainin Indication: FOR PAIN OUTPT CHOLECALCIF 50MCG (D3-2,000UNIT) TAB (Status = ) TAKE TWO TABLETS BY MOUTH EVERY DAY FOR VITAMIN SUPPLEMENTATION Rx# [id number] Last Released: 03/08/24 Qty/Days Supply: 200 Rx Expiration Date: 05/12/24 Refills Remainin OUTPT CLOMIPHENE CITRATE 50MG TAB (Status = Active) TAKE ONE-HALF TABLET BY MOUTH ONCE DAILY Rx# [id number] Last Released: 02/12/24 Qty/Days Supply: Rx Expiration Date: 11/03/24 Refills Remainin OUTPT DICLOFENAC NA 1% TOP GEL (Status = ) APPLY 4 GRAMS TOPICALLY FOUR TIMES A DAY FOR OSTEOARTHRITIS - USE DOSING CARD PROVIDED IN BOX Rx# [id number] Last Released: 03/11/23 Qty/Days Supply: 300 Rx Expiration Date: 03/11/24 Refills Remainin Indication: FOR JOINT PAIN OUTPT FLUTICAS 500/SALMETEROL 50 INHL DISK 60 (Status = ) INHALE 1 PUFF BY MOUTH TWICE DAILY - RINSE MOUTH AFTER USE Rx# [id number] Last Released: 03/08/24 Qty/Days Supply: Rx Expiration Date: 05/12/24 Refills Remainin OUTPT LIDOCAINE 5% OINT (Status = Active) APPLY THIN LAYER TOPICALLY TWICE DAILY TO THREE TIMES A DAY NEEDED FOR MINOR SKIN WOUND PAIN Rx# [id number] Last Released: 05/30/24 Qty/Days Supply: 105 Rx Expiration Date: 08/14/24 Refills Remainin Indication: FOR MINOR SKIN WOUND PAIN OUTPT LOSARTAN 100MG TAB (Status = ) TAKE ONE TABLET BY MOUTH ONCE DAILY FOR BLOOD PRESSURE/HEART Rx# [id number] Last Released: 02/26/24 Qty/Days Supply: 90 Rx Expiration Date: 05/12/24 Refills Remainin OUTPT MONTELUKAST NA 10MG TAB (Status = Active/Suspended) TAKE ONE TABLET BY MOUTH AT BEDTIME FOR CONTROLLER MEDICATION FOR ASTHMA Rx# [id number] Last Released: 04/07/24 Qty/Days Supply: 90 Rx Expiration Date: 10/29/24 Refills Remainin Indication: FOR CONTROLLER MEDICATION FOR ASTHMA OUTPT NAPROXEN 500MG TAB (Status = Active) TAKE ONE TABLET BY MOUTH TWICE DAILY TAKE WITH FOOD Rx# [id number] Last Released: 05/30/24 Qty/Days Supply: 60/30 Rx Expiration Date: 03/02/25 Refills Remainin Indication: FOR INFLAMMATION OUTPT OMEPRAZOLE 20MG EC CAP (Status = ) TAKE ONE CAPSULE BY MOUTH TWICE DAILY Rx# [id number] Last Released: 03/08/24 Qty/Days Supply: 180/90 Rx Expiration Date: 05/12/24 Refills Remainin OUTPT PREGABALIN 100MG ORAL CAP (Status = ) TAKE ONE CAPSULE BY MOUTH TWICE DAILY FOR PAIN Rx# [id number] Last Released: 02/12/24 Qty/Days Supply: 60/30 Rx Expiration Date: 05/26/24 Refills Remainin Indication: FOR PAIN OUTPT TESTOSTERONE CYP 200MG/ML 1ML IN OIL (Status = ) INJECT 0.5ML (100MG) INTRAMUSCULARLY ONCE A WEEK VIALS ARE ONLY TO BE USED ONE TIME Rx# [id number] Last Released: 10/19/23 Qty/Days Supply: 12/05 Rx Expiration Date: 04/16/24 Refills Remainin ------ SUPPLIES ------ /eileen OVALLES MD Primary Care Physician Signed: 05/31/2024 12:45 ADEN VALLECILLO LUNING May 31, 2024 11:51 AM CARDIOLOGY DIAGNOS [...] be rendered on an OUTPATIENT basis Place: P[facility] In's choice Urgency: Routine Clinically Ind. Date: May 31, 2024 DST ID: Orderable Item: EKG TRACING/SPOPC OUTPT Consult: Consult Request Provisional Diagnosis: Left Bundle-Branch Block, unspecified(ICD-10-CM I44.7) Reason For Request: Reason for EKG: left bundle branch block /es/ ADEN VALLECILLO LPN PACT 10 Signed: 05/31/2024 11:52 ADEN VALLECILLO LUNING May 31, 2024 11:48 AM PREVENTIVE MEDICIN E NURSING NOTE: LOCAL TITLE: CLINICAL REMINDERS/NURSING STANDARD TITLE: PREVENTIVE MEDICINE NURSING NOTE DATE OF NOTE: MAY 31, 2024@11:48 ENTRY DATE: MAY 31, 2024@11:48:43 AUTHOR: ADEN VALLECILLO EXP COSIGNER: URGENCY: STATUS: COMPLETED Suicide Screen: C-SSRS Screening [place] Suicide Severity Rating Scale (C-SSRS) screener 1. [...] [facility] group Date Documented: 05/31/24 11:51 /dheeraj/ HANNA HERNANDEZ 10 Signed: 05/31/2024 11:51 ADEN VALLECILLO LUNING May 31, 2024 09:31 AM PHYSICIAN NOTE: LOCAL TITLE: NOTE STANDARD TITLE: PHYSICIAN NOTE DATE OF NOTE: MAY 31, 2024@09:31 ENTRY DATE: MAY 31, 2024@09:31:40 AUTHOR: EHSAN OVALLES EXP COSIGNER: URGENCY: STATUS: COMPLETED NOTE Has ADDENDA HISTORY OF PRESENT ILLNESS: COLBY HARTLEY is a 54 yo MALE who presents at the [facility] for his annual wellness exam. Labs completed. 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 Left Bundle Branch Block: [...] - Htn/Lipids/WT ========= UPCOMING APPOINTMENTS: 06/03/2024 09:50 [facility] CARE-UROLOGY 04/12/2025 10:00 CWM/NO/OPTOMETRY/MERHAR No barriers; Patient [...] this [place] (local) and dispensed from another [place] or [facility] facility (remote) as well as [...] FACILITY ALLERGY/ADR -------- CLNCL/HLTH MADDY REPT EFF [id number] [facility] [place] [facility] [place] [facility] MUSHROOMS [facility] [place] [facility]ELOXIC[facility] [place] [facility] MUSHR[facility]OMS [place] [facility] PENICILLIN Med Recon Irineo (Tool #1) INCLUDED IN THIS LIST: Alphabetical list of active outpatient prescriptions dispensed from this [place] (local) and dispensed from another [place] or [facility] facility (remote) as well as inpatient orders (local pending and active), local clinic medications, locally documented non-VA medications, and local prescriptions that have or been discontinued in the past 90 days. Non-VA Meds Last Documented On: Data not found NOTE The display of VA prescriptions dispensed from another [place] or DoD facility (remote) is limited to active outpatient prescription entries matched to National Drug File at the originating site and may not include some items such as investigational drugs, compounds, etc. NOT INCLUDED IN THIS LIST: Medications self-entered by the patient into personal health records (i.e. Open Source Food) are NOT included in this list. Non-VA medications documented outside this [place], remote inpatient orders (regardless of status) and remote clinic medications are NOT included in this list. The patient and provider must always discuss medications the patient is taking, regardless of where the medication was dispensed or obtained. ------ OUTPT ACETAMINOPHEN 500MG TAB (Status = Discontinued) TAKE TWO TABLETS BY MOUTH THREE TIMES DAILY NEEDED FOR PAIN Rx# [id number] Last Released: 02/15/24 Qty/Days Supply: 200/30 Rx Expiration Date: 03/11/24 Refills Remainin Indication: FOR PAIN OUTPT ACETAMINOPHEN 500MG TAB (Status = Active) TAKE TWO TABLETS BY MOUTH THREE TIMES DAILY NEEDED FOR PAIN Rx# [id number] Last Released: 05/30/24 Qty/Days Supply: 200/30 Rx Expiration Date: 03/25/25 Refills Remainin Indication: FOR PAIN OUTPT ALBUTEROL 90MCG (CFC-F) 200D ORAL INHL (Status = ) INHALE 2 PUFFS BY MOUTH FOUR TIMES DAILY NEEDED FOR SHORTNESS OF BREATH Rx# [id number] Last Released: 03/08/24 Qty/Days Supply: 3 Rx Expiration Date: 05/12/24 Refills Remainin OUTPT BUPRENORPHINE 150MCG BUCCAL FILM (Status = Discontinued) PLACE ONE FILM BETWEEN CHEEK AND GUM UNTIL DISSOLVED THREE TIMES A DAY FOR PAIN Rx# [id number] Last Released: 02/13/24 Qty/Days Supply: 9030 Rx Expiration Date: 06/24/24 Refills Remainin Indication: FOR PAIN OUTPT BUPRENORPHINE 300MCG BUCCAL FILM (Status = Active) PLACE ONE FILM BETWEEN CHEEK AND GUM UNTIL DISSOLVED TWICE DAILY FOR PAIN Rx# [id number] Last Released: 05/30/24 Qty/Days Supply: 60/30 Rx Expiration Date: 09/24/24 Refills Remainin Indication: FOR PAIN OUTPT CHOLECALCIF 50MCG (D3-2,000UNIT) TAB (Status = ) TAKE TWO TABLETS BY MOUTH EVERY DAY FOR VITAMIN SUPPLEMENTATION Rx# [id number] Last Released: 03/08/24 Qty/Days Supply: 200/90 Rx Expiration Date: 05/12/24 Refills Remainin OUTPT CLOMIPHENE CITRATE 50MG TAB (Status = Active) TAKE ONE-HALF TABLET BY MOUTH ONCE DAILY Rx# [id number] Last Released: 02/12/24 Qty/Days Supply: Rx Expiration Date: 11/03/24 Refills Remainin OUTPT DICLOFENAC NA 1% TOP GEL (Status = ) APPLY 4 GRAMS TOPICALLY FOUR TIMES A DAY FOR OSTEOARTHRITIS - USE DOSING CARD PROVIDED IN BOX Rx# [id number] Last Released: 03/11/23 Qty/Days Supply: 300/30 Rx Expiration Date: 03/11/24 Refills Remainin Indication: FOR JOINT PAIN OUTPT FLUTICAS 500/SALMETEROL 50 INHL DISK 60 (Status = ) INHALE 1 PUFF BY MOUTH TWICE DAILY - RINSE MOUTH AFTER USE Rx# [id number] Last Released: 03/08/24 Qty/Days Supply: Rx Expiration Date: 05/12/24 Refills Remainin OUTPT LIDOCAINE 5% OINT (Status = Active) APPLY THIN LAYER TOPICALLY TWICE DAILY TO THREE TIMES A DAY NEEDED FOR MINOR SKIN WOUND PAIN Rx# [id number] Last Released: 05/30/24 Qty/Days Supply: Rx Expiration Date: 08/14/24 Refills Remainin Indication: FOR MINOR SKIN WOUND PAIN OUTPT LOSARTAN 100MG TAB (Status = ) TAKE ONE TABLET BY MOUTH ONCE DAILY FOR BLOOD PRESSURE/HEART Rx# [id number] Last Released: 02/26/24 Qty/Days Supply: Rx Expiration Date: 05/12/24 Refills Remainin OUTPT MONTELUKAST NA 10MG TAB (Status = Active/Suspended) TAKE ONE TABLET BY MOUTH AT BEDTIME FOR CONTROLLER MEDICATION FOR ASTHMA Rx# [id number] Last Released: 04/07/24 Qty/Days Supply: Rx Expiration Date: 10/29/24 Refills Remainin Indication: FOR CONTROLLER MEDICATION FOR ASTHMA OUTPT NAPROXEN 500MG TAB (Status = Active) TAKE ONE TABLET BY MOUTH TWICE DAILY TAKE WITH FOOD Rx# [id number] Last Released: 05/30/24 Qty/Days Supply: 60 Rx Expiration Date: 03/02/25 Refills Remainin Indication: FOR INFLAMMATION OUTPT OMEPRAZOLE 20MG EC CAP (Status = ) TAKE ONE CAPSULE BY MOUTH TWICE DAILY Rx# [id number] Last Released: 03/08/24 Qty/Days Supply: Rx Expiration Date: 05/12/24 Refills Remainin OUTPT PREGABALIN 100MG ORAL CAP (Status = ) TAKE ONE CAPSULE BY MOUTH TWICE DAILY FOR PAIN Rx# [id number] Last Released: 02/12/24 Qty/Days Supply: 60 Rx Expiration Date: 05/26/24 Refills Remainin Indication: FOR PAIN OUTPT TESTOSTERONE CYP 200MG/ML 1ML IN OIL (Status = ) INJECT 0.5ML (100MG) INTRAMUSCULARLY ONCE A WEEK VIALS ARE ONLY TO BE USED ONE TIME Rx# [id number] Last Released: 10/19/23 Qty/Days Supply: 12/05 Rx [...]
--- OUTSIDE RECORDS SUMMARY | 2024-10-25 11:05 | XMS_ITS | Encounter Summary ---
Author Name [facility] [place] [facility] [place] Address [address] [place] [address] Care Team Providers Care Job Putter Up And Ticket Preparer Name Role Phone EHSAN OVALLES Primary Care [...] PART A December 08, 2013 PART A [id number] BRIGID RAMOS PATIENT MEDICARE (WNR) MEDICARE (M) PART A December 08, 2013 PART A [id number] BRIGID RAMOS PATIENT MEDICARE (WNR) MEDICARE (M) PART A December 08, 2013 PART A [id number] [id number] BRIGID RAMOS PATIENT MEDICARE (WNR) MEDICARE (M) PART A December 08, 2013 PART A [id number] [phone] BRIGID RAMOS PATIENT Selected Encounter This section includes the information on record at [place] for the Encounter. Date/Time Encounter Type Encounter Description Reason Provider Source Aug 30, 2024 11:00 AM OFFICE O/P EST LOW 20 MIN PRIMARY CARE/MEDICINE ICD-10-CM I10 Essential (primary) hypertension EHSAN OVALLES Encounter Template Text not used by [place] Assessments - Encounter Diagnoses This section includes the primary and secondary diagnoses documented for the Encounter. Date/Time Primary/Secondary Diagnosis Diagnosis Name Provider Source Aug 30, 2024 11:28 AM PRIMARY Essential (primary) hypertension EHSAN OVALLES Aug 30, 2024 11:28 AM SECONDARY Hyperlipidemia, unspecified EHSAN OVALLES STEFAN Aug 30, 2024 11:28 AM SECONDARY Obesity, unspecified EHSAN OVALLES BRI STEFAN Plan of Treatment: Future Appointments (+ 6 months) and Future Tests (+/- 45 days) The Plan of Treatment section includes future care activities for the patient [facility] [place] [facility] This section includes future appointments and future orders which are active, pending or scheduled. Future Appointments This section includes appointments that were scheduled to occur 6 months from the date of the Encounter, up to a maximum of 20 appointments. The data comes from all [place] treatment facilities. Appointment Date/Time Appointment Type Appointme nt Facility Name Sep 14, 2024 01:00 PM AMBULATORY - [facility]IN [facility] [place] [facility] Oct 13, 2024 09:00 AM [place] [facility] [place] [facility] Oct 25, 2024 10:00 AM [place] [facility] [place] [facility] Nov 01, 2024 11:30 AM [place] [facility] [place] [facility] Nov 14, 2024 09:30 AM AMBULATORY - NONE [place] [facility] [place] [facility] December 26, 2024 09:30 AM AMBULATORY - NONE [facility] [place] [facility] Active, Pending, and Scheduled Orders This section includes a listing of several types of active, pending, and scheduled orders, including clinic medications orders, diagnostic test orders, procedure orders and consult orders; where the start date of the order is 45 days before the date of the Encounter or 45 days after the date of theEncounter. The data comes from all [place] treatment facilities. Test Date/Time Test Type Test Details Facility Name Aug 30, 2024 12:11 PM Consult Order DENTAL CON SULT OUTPT Cons Director Of Customer Acquisition's Choice [place] [facility] [place] [facility] Aug 30, 2024 12:33 PM Consult Order [facility]-DENTAL GENERAL Cons Director Of Customer Acquisition's Choice [facility] [place] [facility] Sep 25, 2024 11:32 AM Consult Order [facility]-RADIOLOGY XRAY Cons Director Of Customer Acquisition's Choice [facility] [place] [facility] Sep 27, 2024 09:40 AM Consult Order [facility]-COLONOSCOPY Cons Director Of Customer Acquisition's Choice [facility] [place] [facility] Oct 10, 2024 03:55 PM Consult Order [facility]-ORTHO SURGICAL Cons Director Of Customer Acquisition's Choice [facility] Lab Results: +/- 30 days of the encounter This section includes the Chemistry and Hematology Lab Results on record with [place] for the patient. Radiology Reports and Pathology Reports are provided separately, in subsequent sections. Lab Results This section contains the Chemistry/Hematology Results that were resulted 30 days before or 30 daysafter the date of the Encounter. Date/Time Source Result Type Result - Unit Interpretation Reference Range Comment Aug 26, 2024 07:39 AM [facility] LIPID PANEL FASTING Specimen Type: SERUM No comment entered. Ordering Provider: EHSAN OVALLES Report Released Date/Time: May 31, 2024 12:43 PM Reporting Lab: [facility] [address] [phone] Performing Lab: [facility] [address] [phone] CHOLESTEROL 140 mg/dL TRIGLYCERIDE 58 mg/dL 0-150 LDL calculated 85 mg/dL 0-129 CHOL/HDL 3.3 HDL CHOLESTEROL 43 mg/dL 40-60 Aug 26, 2024 07:39 AM [facility] LIVER FUNCTION Specimen Type: SERUM No comment entered. Ordering Provider: EHSAN OVALLES Report Released Date/Time: May 31, 2024 12:43 PM Reporting Lab: [facility] [address] [address] Performing Lab: [facility] [address] [phone] PROTEIN,TOTAL 7.2 g/dL 6.0-8.3 ALBUMIN 4.0 g/dL 3.5-5.0 ALKALINE PHOSPHATASE 58 U/L 40-150 AST 21 U/L 5-34 ALT 30 U/L BILIRUBIN, TOTAL 0.6 mg/dL 0.2-1.2 Aug 26, 2024 07:39 AM [facility] BASIC METABOLIC PANEL (fasting) Specimen Type: SERUM No comment entered. Ordering Provider: EHSAN OVALLES Report Released Date/Time: May 31, 2024 12:43 PM Reporting Lab: [facility] [address] [phone] Performing Lab: [facility] [address] [address] UREA NITROGEN 22 mg/dL 7-25 GLUCOSE 97 mg/dL 65-100 SODIUM 140 mmol/L 135-145 POTASSIUM 4.3 mmol/L 3.5-5.0 CHLORIDE 108 mmol/L 100-110 CO2 24 meq/L 20-30 CREATININE, Serum 1.01 mg/dL 0.50-1.40 eGFR(CKD-EPI 2020) 89 mL/min >60 Social History: Smoking Status (Most [...] Jose armstrong May 31, 2024 11:30 AM [place]-TOBACCO NEVER USED [place] Tobacco Use History This section includes a history of the smoking, or tobacco-related health factors, that were collected on or before the date of the Encounter. The data comes from the [place] facility where the Encounter took place. Date/Time Smoking Status/Tobacco Use Comment F acility May 26, 2022 10:00 AM [facility] NEVER USED [place] May 21, 2021 03:00 PM [facility]-TOBACCO NEVER USED [place] Aug 08, 2019 11:05 AM [facility]-TOBACCO NEVER USED [place] Jun 28, 2018 03:14 PM [place]TO[place] NEVER USED [place] May 28, 2017 08:56 AM LIFETIME NON-TOBACCO USER [place] Advance Directives: All historical and current Section [...] Mar 22, 2018 ADVANCE DIRECTIVE TEENAJASWANT CARDENAS [place] [facility] Encounter Notes: All associated encounter notes This section contains the clinical notes associated to the Encounter. Date/Time Encounter Note(s) Provider Source Aug 30, 2024 11:23 AM PREVENTIVE MEDICIN E NURSING NOTE: LOCAL TITLE: CLINICAL REMINDERS/NURSING STANDARD TITLE: PREVENTIVE MEDICINE NURSING NOTE DATE OF NOTE: AUG 30, 2024@11:23 ENTRY DATE: AUG 30, 2024@11:23:10 AUTHOR: ADEN VALLECILLO EXP COSIGNER: URGENCY: STATUS: COMPLETED Influenza Immunization: Deferral / Refusal The patient declines to receive the recommended dose of seasonal influenza vaccine. Immunization: INFLUENZA, UNSPECIFIED FORMULATION Refusal Reason: PATIENT DECISION Patient refuses all immunization(s) in the FLU group Date Documented: 08/30/24 11:23 COVID-19 Immunization: Refused Moderna Monovalent COVID-19 vaccine Immunization: COVID-19 (MODERNA), MRNA, LNP-S, PF, 50 MCG/0.5 ML (AGES 12+ YEARS) Refusal Reason: PATIENT DECISION Patient refuses all immunization(s) in the COVID-19 group Date Documented: 08/30/24 11:23 Herpes Zoster (Shingles) Vaccine: The patient declines to receive the recommended dose of zoster (shingles) vaccine. Immunization: ZOSTER RECOMBINANT Refusal Reason: PATIENT DECISION Patient refuses all immunization(s) in the ZOSTER group Date Documented: 08/30/24 11:23 Sexual Orientation: The patient thinks of their sexual orientation as: Straight or Heterosexual /dheeraj/ HANNA HERNANDEZ 10 Signed: 08/30/2024 11:24 ADEN VALLECILLOFIELD Aug 30, 2024 06:10 AM PHYSICIAN NOTE: LOCAL TITLE: MD NOTE STANDARD TITLE: PHYSICIAN NOTE DATE OF NOTE: AUG 30, 2024@06:10 ENTRY DATE: AUG 30, 2024@06:10:52 AUTHOR: EHSAN OVALLES EXP COSIGNER: URGENCY: STATUS: COMPLETED HISTORY OF PRESENT ILLNESS: COLBY SREE II ASTAFERRERO is a 54 yo MALE who presents at the [facility] for f/u to hypertension and hyperlipidemia. Labs completed. Active problems - Computerized Problem List is the source for the followin. Colonoscopy Screening 2. Left knee pain 3. Chronic low back pain 4. Chronic esophagitis 5. Obesity 6. Constrictive tenosynovitis 7. Erectile dysfunction 8. Obstructive sleep apnea syndrome 9. Hyperlipidemia 10. Posttraumatic stress disorder 11. Depression 12. Hypertension 13. Gout 14. Traumatic brain injury (SNOMED CT [id number]) 15. Asthma The following VA and Non-VA meds were reconciled with patient: Active Outpatient Medications (including Supplies): Issue Date Status Last Fill Active Outpatient Medications Refills Expiration 1) ACETAMINOPHEN 500MG TAB Qty: 200 for 30 days ACTIVE Issue: 03/24/24 Sig: TAKE TWO TABLETS BY MOUTH THREE TIMES Refills: 4 Last : 05/30/24 DAILY NEEDED Expr : 03/25/25 Indication: FOR PAIN 2) BUPRENORPHINE 300MCG BUCCAL FILM Qty: 60 for ACTIVE Issue: 03/24/24 30 days Sig: PLACE ONE FILM BETWEEN CHEEK Refills: 2 Last : 05/30/24 AND GUM UNTIL DISSOLVED TWICE DAILY Expr : 09/24/24 Indication: FOR PAIN 3) CLOMIPHENE CITRATE 50MG TAB Qty: 30 for 60 ACTIVE Issue: 11/03/23 days Sig: TAKE ONE-HALF TABLET BY MOUTH ONCE Refills: 0 Last : 02/21/24 DAILY Expr : 11/03/24 4) LOSARTAN 100MG TAB Qty: 90 for 90 days Sig: ACTIVE Issue: 07/18/24 TAKE ONE TABLET BY MOUTH ONCE DAILY FOR Refills: 3 Last : 07/18/24 BLOOD PRESSURE/HEART Expr : 07/19/25 5) MONTELUKAST NA 10MG TAB Qty: 90 for 90 days ACTIVE Issue: 10/29/23 Sig: TAKE ONE TABLET BY MOUTH AT BEDTIME Refills: 0 Last : 07/15/24 Indication: FOR CONTROLLER MEDICATION FOR Expr : 10/29/24 ASTHMA 6) NAPROXEN 500MG TAB Qty: 60 for 30 days Sig: ACTIVE Issue: 03/01/24 TAKE ONE TABLET BY MOUTH TWICE DAILY TAKE Refills: 1 Last : 05/30/24 WITH FOOD Expr : 03/02/25 Indication: FOR INFLAMMATION 7) ROSUVASTATIN CA 40MG TAB Qty: 45 for 90 days ACTIVE Issue: 07/20/24 Sig: TAKE ONE-HALF TABLET BY MOUTH AT Refills: 3 Last : 07/20/24 BEDTIME FOR CHOLESTEROL Expr : 07/21/25 Indication: FOR HIGH CHOLESTEROL 8) TABLET CUTTER (PILL SPLITTER) Qty: 1 for 90 ACTIVE Issue: 06/21/24 days Sig: USE CUTTER DIRECTED ONCE DAILY Refills: 0 Last : 06/21/24 TO SPLIT TABLETS Expr : 09/19/24 ALLERGIES: ========= PENICILLIN, MUSHROOMS, MELOXICAM LAB HISTORY: CHEM 7 TREND LAB CUMULATIVE SELECTED Collection DT Spec GLUCOSE BUN CREATIN Sodium K+/Pot CL CO2 08/26/2024 07:39 SERUM 97 22 1.01 140 4.3 108 24 05/12/2024 07:47 SERUM 88 22 1.09 141 4.4 108 23 11/09/2023 08:51 SERUM 97 25 1.12 141 4.5 104 28 05/08/2023 08:47 SERUM 92 28 H 1.02 139 4.2 104 26 11/11/2022 07:51 SERUM 91 24 1.05 141 4.4 104 26 LIPID PANEL TREND Collection DT Spec CHOL HDL CHO/HDL LDL-c TRIG 08/26/2024 07:39 SERUM 140 43 3.3 85 58 05/12/2024 07:47 SERUM 246 H 33 L 7.5 182 H 153 H 11/09/2023 08:51 SERUM 286 H 38 L 7.5 226 H 111 05/08/2023 08:47 SERUM 203 H 36 L 5.6 149 H 91 11/11/2022 07:51 SERUM 214 H 38 L 5.6 158 H 89 LIVER PANEL TREND Collection DT Spec AST ALT T BILI ALK JORGE LUIS T. PROT ALBUMIN 08/26/2024 07:39 SERUM 21 30 0.6 58 7.2 4.0 05/12/2024 07:47 SERUM 20 37 0.4 59 6.6 3.8 11/09/2023 08:51 SERUM 21 40 0.6 68 7.2 4.0 05/08/2023 08:47 SERUM 19 38 0.7 74 7.4 4.2 11/11/2022 07:51 SERUM 19 38 0.7 61 7.1 4.1 HISTORY: PERIOD OF SERVICE - [facility] [employer] FROM May TO Aug COMBAT SERVICE INDICATED: No VITAL SIGNS: Blood Pressure 129/86 (08/30/2024 11:22) Pulse 71 (08/30/2024 11:15) Respiration 16 (08/30/2024 11:15) Pulse Oximetry 97% (08/30/2024 11:15) Temperature 98.3 F [36.8 C] (08/30/2024 11:15) Pain 0 (08/30/2024 11:15) Height 73 in [185.4 cm] (08/30/2024 11:15) Weight 342.6 lb [155.40 kg] (08/30/2024 11:15) BMI BMI: 45.3 REVIEW OF SYSTEMS: CARDIOVASCULAR: No chest pain, no palps RESPIRATORY: No SOB, no wheezing GASTROINTESTINAL: No abd pain, no N/V/D MUSCULOSKELETAL: No joint pain, +LBP w/left sciatica NEUROLOGIC: No numbness, no weakness EXAMINATION: GENERAL: WD/WN in NAD HEENT: Moist mucosa NECK: Supple, no carotid bruits HEART: RRR, S1-S2, no murmurs LUNGS: CTA B/L ABDOMEN: Soft, NT/ND, + BS x 4 Quads EXTREMITIES: FROM x 4, no edema ASSESSMENT/PLAN: 1. Hypertension: well controlled on losartan 100mg/day 2. Hyperlipidemia:improved since initiating statin tx, intolerant to atorvastatin 20mg/QHS, started rosuvastatin 20mg/QHS on 07/20/24 which is tolerable, advised CoQ10 300mg/day, will cont med as prescribed Collection DT Spec CHOL HDL CHO/HDL LDL-c TRIG 08/26/2024 07:39 SERUM 140 43 3.3 85 58 05/12/2024 07:47 SERUM 246 H 33 L 7.5 182 H 153 H 3. Obesity: BMI ~45, encouraged wt loss 4. Colonoscopy Screening: appt was scheduled for 05/24/24 w/Dr Acosta, will request record 5. Low back Pain: s/p L-S stenosis surgery by Dr Fernandes in 2019, he has been having increasing pain lately, very severe, now radiating down left leg (prior was right leg), he is asking if he can have a dental device created so he can tolerate the MRI machine bc otherwise he cannot, will place consult GIOVANNI w/dental, once completed, will then order MRI L-S spine FOLLOW UP: 6 mths - HTN/Lipids/WT - FBW prior ========= UPCOMING APPOINTMENTS: 09/14/2024 13:00 CWM/NO/VVC/MED REHAB PROV 04/12/2025 10:00 CWM/NO/OPTOMETRY/MERHAR No barriers; Patient understands and agrees to current treatment plan. If pt has any questions, concerns, or changes in current health status he/she will call or come [facility] the [facility]. Avg Risk Colorectal Cancer Screen: AVERAGE RISK colorectal cancer screening is due based on information available to this clinical reminder CRC screen completed elsewhere and waiting for results. Results expected: Medication Reconciliation: Outpatient: Has the patient been taking medications as documented in the EMLR? YES: The patient has been taking medications as documented in the EMLR. Essential Medication List for Review used to complete this medication reconciliation. INCLUDED IN THIS LIST: Alphabetical list of active outpatient prescriptions dispensed from this [place] (local) and dispensed from another [place] or [facility] facility (remote) as well as inpatient [...] FACILITY ALLERGY/ADR -------- CLNCL/HLTH MADDY REPT EFF [id number] PENICILLINS [facility] [place] [facility] MELOXICAM [facility] [place] [facility] MUSHROOMS [facility] [place] [facility] PENICILLIN [facility] MELOXICAM [facility] MUSHROOMS [facility] PENICILLIN Med Recon NoGlossary (Tool #1) INCLUDED IN THIS LIST: Alphabetical list of active outpatient prescriptions dispensed from this [place] (local) and dispensed from another [place] or [facility] facility (remote) as well as inpatient orders (local pending and active), local clinic medications, locally documented non-VA medications, and local prescriptions that have or been discontinued in the past 90 days. Non-VA Meds Last Documented On: Data not found NOTE The display of VA prescriptions dispensed from another [place] or [facility] facility (remote) is limited to active outpatient prescription entries matched to National Drug File at the originating site and may not include some items such as investigational drugs, compounds, etc. NOT INCLUDED IN THIS LIST: Medications self-entered by the patient into personal health records (i.e. [employer]) are NOT included in this list. Non-VA medications documented outside this [place], remote inpatient orders (regardless of status) and remote clinic medications are NOT included in this list. The patient and provider must always discuss medications the patient is taking, regardless of where the medication was dispensed or obtained. ------ OUTPT ACETAMINOPHEN 500MG TAB (Status = Active) TAKE TWO TABLETS BY MOUTH THREE TIMES DAILY NEEDED FOR PAIN Rx# [id number] Last Released: 05/30/24 Qty/Days Supply: 200/30 Rx Expiration Date: 03/25/25 Refills Remainin Indication: FOR PAIN OUTPT ATORVASTATIN CALCIUM 20MG TAB (Status = Discontinued) TAKE ONE TABLET BY MOUTH AT BEDTIME FOR HIGH CHOLESTEROL Rx# [id number] Last Released: 06/22/24 Qty/Days Supply: 90/90 Rx Expiration Date: 06/22/25 Refills Remainin Indication: FOR HIGH CHOLESTEROL OUTPT ATORVASTATIN CALCIUM 40MG TAB (Status = Discontinued) TAKE ONE-HALF TABLET BY MOUTH AT BEDTIME FOR HIGH CHOLESTEROL Rx# [id number] Last Released: 06/01/24 Qty/Days Supply: 45 Rx Expiration Date: 06/01/25 Refills Remainin Indication: FOR HIGH CHOLESTEROL OUTPT BUPRENORPHINE 300MCG BUCCAL FILM (Status = Active) PLACE ONE FILM BETWEEN CHEEK AND GUM UNTIL DISSOLVED TWICE DAILY FOR PAIN Rx# [id number] Last Released: 05/30/24 Qty/Days Supply: 6030 Rx Expiration Date: 09/24/24 Refills Remainin Indication: FOR PAIN OUTPT CLOMIPHENE CITRATE 50MG TAB (Status = Active) TAKE ONE-HALF TABLET BY MOUTH ONCE DAILY Rx# [id number] Last Released: 02/12/24 Qty/Days Supply: Rx Expiration Date: 11/03/24 Refills Remainin OUTPT LIDOCAINE 5% OINT (Status = ) APPLY THIN LAYER TOPICALLY TWICE DAILY TO THREE TIMES A DAY NEEDED FOR MINOR SKIN WOUND PAIN Rx# [id number] Last Released: 05/30/24 Qty/Days Supply: Rx Expiration Date: 08/14/24 Refills Remainin Indication: FOR MINOR SKIN WOUND PAIN OUTPT LOSARTAN 100MG TAB (Status = Active) TAKE ONE TABLET BY MOUTH ONCE DAILY FOR BLOOD PRESSURE/HEART Rx# [id number] Last Released: 07/19/24 Qty/Days Supply: Rx Expiration Date: 07/19/25 Refills Remainin OUTPT MONTELUKAST NA 10MG TAB (Status = Active) TAKE ONE TABLET BY MOUTH AT BEDTIME FOR CONTROLLER MEDICATION FOR ASTHMA Rx# [id number] Last Released: 07/06/24 Qty/Days Supply: Rx Expiration Date: 10/29/24 Refills Remainin Indication: FOR CONTROLLER MEDICATION FOR ASTHMA OUTPT NAPROXEN 500MG TAB (Status = Active) TAKE ONE TABLET BY MOUTH TWICE DAILY TAKE WITH FOOD Rx# [id number] Last Released: 05/30/24 Qty/Days Supply: 60 Rx Expiration Date: 03/02/25 Refills Remainin Indication: FOR INFLAMMATION OUTPT OXYCODONE HCL 5MG TAB NOT SA (Status = ) TAKE ONE TABLET BY MOUTH EVERY 12 HOURS NEEDED FOR PAIN Rx# [id number] Last Released: 07/04/24 Qty/Days Supply: 15 Rx Expiration Date: 08/03/24 Refills Remainin OUTPT ROSUVASTATIN CA 40MG TAB (Status = Active) TAKE ONE-HALF TABLET BY MOUTH AT BEDTIME FOR CHOLESTEROL Rx# [id number] Last Released: 07/21/24 Qty/Days Supply: Rx Expiration Date: 07/21/25 Refills Remainin Indication: FOR HIGH CHOLESTEROL ------ SUPPLIES ------ OUTPT TABLET CUTTER (PILL SPLITTER) (Status = Active) USE CUTTER DIRECTED ONCE DAILY TO SPLIT TABLETS Rx# [id number] Last Released: 06/21/24 Qty/Days Supply: Rx Expiration Date: 09/19/24 Refills Remainin /es/ EHSAN OVALLES MD Primary Care Physician Signed: 08/30/2024 12:10 EHSAN OVALLES [place]
--- OUTSIDE RECORDS SUMMARY | 2024-10-25 11:06 | XMS_ITS | Encounter Summary ---
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 Date/Time Encounter Type Encounter Description Reason Pro vider Source Sep 27, 2024 09:31 AM Outpatient Encounter COMMUNITY CARE CONSULT IHE Encounter Template Text not used by [facility] Plan of Treatment: Future Appointments (+ 6 months) and Future Tests (+/- 45 days) The Plan of Treatment section includes future care activities for the [facility] [place] [facility] This section includes future appointments and future orders which are active, pending or scheduled. Future Appointments This section includes appointments that were scheduled to occur 6 months from the date of the Encounter, up to a maximum of 20 appointments. The data comes from all [place] treatment facilities. Appointment Date/Time Appointment Type Appointme nt Facility Name Oct 13, 2024 09:00 AM AM[place]ULATORY [place]INE [place] [facility] [place] [facility] Oct 25, 2024 10:00 AM AMBULATORY [place]ICINE [place] [facility] [place] [facility] Nov 01, 2024 11:30 AM AMBULATORY [place] MEDICINE [place] [facility] [place] [facility] Nov 14, 2024 09:30 AM AMBULATORY - NONE [facility] [place] [facility] December 26, 2024 09:30 AM AMBULATORY - NONE [place] [facility] [place] [facility] Feb 28, 2025 10:00 AM AMBULATORY - MEDICINE [place] [facility] [place] [facility] Active, Pending, and Scheduled Orders This section includes a listing of several types of active, pending, and scheduled orders, including clinic medications orders, diagnostic test orders, procedure orders and consult orders; where thestart date of the order is 45 days before the date of the Encounter or 45 days after the date of the Encounter. The data comes from all [place] treatment facilities. Test Date/Time Test Type Test Details Facility Name Aug 30, 2024 12:11 PM Consult Order DENTAL CON SULT OUTPT [facility] [employer] [facility] [place] [facility] [place] [facility] Aug 30, 2024 12:33 PM Consult Order COMMUNITY CARE-DENTAL GENERAL [facility] [place] [facility] Sep 25, 2024 11:32 AM Consult Order COMMUNITY CARE-RADIOLOGY XRAY [facility] [place] [facility] Sep 27, 2024 09:40 AM Consult Order COMMUNITY CARE-COLONOSCOPY [facility] [place] [facility] Oct 10, 2024 03:55 PM Consult Order COMMUNITY CARE-ORTHO SURGICAL [facility] [place] [facility] [place] [facility] Social History: Smoking Status (Most current) and Tobacco Use (All prior to encounter date) This section includes the most current, and the historical, smoking and tobacco- related health factors from the [place] facility where the Encounter took place. Current Smoking Status This section includes the most current smoking, or tobacco-related health factor, from the [place] facility where the Encounter took place. Date/Time Current Smoking Status Comment Jose ity May 12, 2023 10:46 AM VA-TOBACCO NEVER USED [facility] Tobacco Use History This section includes a history of the smoking, or tobacco-related health factors, that were collected on or before the date of the Encounter. The data comes from the [place] facility where the Encounter took place. Date/Time Smoking Status/Tobacco Use Comment F acility Oct 20, 2015 10:30 AM LIFETIME NON-TOBACCO USER [facility] Sep 19, 2009 11:13 AM LIFETIME NON-TOBACCO USER [facility] Advance Directives: All historical and current Section Date Range: From patient's date of to the date document was created. This section includes ALL of a patient's completed or amended [place] Advance and Rescinded Directives. The entries below indicate that a directive exists for the patient, but an actual copy is not included with this document. The data comes from all [place] facilities. Date Advance Directives Provider Source Mar 22, 2018 ADVANCE DIRECTIVE JASWANT DICKINSON [facility] Encounter Notes: All associated encounter notes This section contains the clinical notes associated to the Encounter. Date/Time Encounter Note(s) Provider Source Sep 27, 2024 09:31 AM ADMINISTRATIVE NOT E: LOCAL TITLE: ADMINISTRATIVE NOTE STANDARD TITLE: ADMINISTRATIVE NOTE DATE OF NOTE: SEP 27, 2024@09:31 ENTRY DATE: SEP 27, 2024@09:32:01 AUTHOR: MICHELLE GARCIA COSIGNER: URGENCY: STATUS: COMPLETED [place] has been scheduled for his colonoscopy on 10/13/2024 @ 9:00 at the [facility], a new consult is needed if approved [facility] Gastroenterology [facility] Address: [address] [place] [address] City: [place] State: [place] Zip: [address] ATTN; JOYCE Tax ID [id number] GP Provider to contact if existing pt. New Patient; requires new patient form. Call for appointments PRE AUTH: YES DR. RAMON MENDEZ Zheng Mendez MD Erich Martines MD Angélica David, BUMPER STRAIGHTENER Nakia Hoskins MD Dr. Papito Locke Luna Mcgowan PAC /dheeraj/ MICHELLE GARCIA Signed: 09/27/2024 09:33 Receipt Acknowledged By: 09/27/2024 09:44 /es/ ADEN VALLECILLO LPN PACT 10 for TAMEKA DOSS 09/28/2024 09:49 /es/ CL SHETH PA-C STAFF PHYSICIAN SCREW SUPERVISOR for EHSAN OVALLES 09/27/2024 09:44 /dheeraj/ ADEN VALLECILLO LPN PACT 10 MICHELLE GARCIA [facility]
--- OUTSIDE RECORDS SUMMARY | 2024-10-25 11:07 | XMS_ITS ---
Author Name [facility] [place] [facility] [place] Address [address] [place] [address] Care Team Providers Care Quality Assurance Manager Name Role Phone EHSAN OVALLES Primary [...] PART A December 08, 2013 PART A [id number] BRIGID RAMOS PATIENT MEDICARE (WNR) MEDICARE (M) PART A December 08, 2013 PART A [id number] BRIGID RAMOS PATIENT MEDICARE (WNR) MEDICARE (M) PART A December 08, 2013 PART A [id number] BRIGID RAMOS PATIENT MEDICARE (WNR) MEDICARE (M) PART A December 08, 2013 PART A [id number] BRIGID RAMOS PATIENT Selected Encounter This section includes the information on record at [place] for the Encounter. Date/Time Encounter Type Encounter Description Reason Provider Source Nov 05, 2023 01:00 PM OFFICE O/P EST LOW 20 MIN PM&RS PHYSICIAN ICD-10-CM M25.562 Pain in left knee АНДРЕЙ HUSSEIN [facility] Encounter Template Text not used by [place] Assessments - Encounter Diagnoses This section includes the primary and secondary diagnoses documented for the Encounter. Date/Time Primary/Secondary Diagnosis Diagnosis Name Provider Source December 16, 2023 11:45 AM PRIMARY Pain in left knee SHARMILA HUSSEIN [place] [facility] [place] [facility] December 16, 2023 11:45 AM SECONDARY Other low back pain SHARMILA HUSSEIN [place] [facility] [place] [facility] December 16, 2023 11:45 AM SECONDARY Other obesity SHARMILA HUSSEIN [place] [facility] [place] [facility] Plan of Treatment: Future Appointments (+ 6 months) and Future Tests (+/- 45 days) The Plan of Treatment section includes future care activities for the patient from all [place] [facility]. This section includes future appointments [...] 11, 2023 10:00 AM AM[place]ULATORY - [place]ICINE [place] [facility] [place] [facility] Nov 24, 2023 09:30 AM AMBULATORY - [place]ICINE [place] [facility] [place] [facility] Nov 26, 2023 10:30 AM AMBULATORY - [facility]AB [facility]ICIN [facility] Dec 01, 2023 09:45 AM AMBULATORY - [place]ICINE [place] [facility] [place] [facility] Dec 01, 2023 03:30 PM AMBULATORY - REHAB MEDICIN [facility] [place] Dec 08, 2023 09:00 AM AMBULATORY - REHAB MEDICIN [facility] [place] January 05, 2024 01:00 PM AMBULATORY - REHAB MEDICIN E [place] [facility] [place] [facility] Jan 15, 2024 09:30 AM AMBULATORY - REHAB MEDICIN [facility] [place] Feb 23, 2024 09:00 AM AMBULATORY - MEDICINE [place] [facility] [place] [facility] Feb 25, 2024 01:00 PM AMBULATORY - REHAB MEDICIN E [facility] [place] [facility] Mar 21, 2024 10:00 AM AMBULATORY - MEDICINE [place] [facility] [place] [facility] Mar 24, 2024 01:00 PM [facility] Apr 06, 2024 10:00 AM AMBULATORY - MEDICINE [facility] Lab Results: +/- 30 days of [...] Range Comment Nov 09, 2023 08:51 AM [facility] LIPID PANEL FASTING Specimen Type: SERUM No comment entered. Ordering Provider: EHSAN OVALLES Report Released Date/Time: May 12, 2023 10:46 AM Reporting Lab: [address] [id number] Performing Lab: [address] [address] CHOLESTEROL 286 mg/dL H TRIGLYCERIDE 111 mg/dL 0-150 LDL calculated 226 mg/dL H 0-129 CHOL/HDL 7.5 HDL CHOLESTEROL 38 mg/dL L 40-60 Nov 09, 2023 08:51 AM [facility] LIVER FUNCTION Specimen Type: SERUM No comment entered. Ordering Provider: EHSAN OVALLES Report Released Date/Time: May 12, 2023 10:46 AM Reporting Lab: [address] [address] Performing Lab: [address] [address] PROTEIN,TOTAL 7.2 g/dL 6.0-8.3 ALBUMIN 4.0 g/dL 3.5-5.0 ALKALINE PHOSPHATASE 68 U/L 40-150 AST 21 U/L 5-34 ALT 40 U/L BILIRUBIN, TOTAL 0.6 mg/dL 0.2-1.2 Nov 09, 2023 08:51 AM [facility] BASIC METABOLIC PANEL (fasting) Specimen Type: SERUM No comment entered. Ordering Provider: EHSAN OVALLES Report Released Date/Time: May 12, 2023 10:46 AM Reporting Lab: [facility] [address] [facility] [address] Performing Lab: [facility] [address] [facility] [address] UREA NITROGEN 25 mg/dL 7-25 GLUCOSE 97 [...] Nov 05, 2023 12:53 PM 140/80 9 [facility] Social History: Smoking [...] Mar 22, 2018 ADVANCE DIRECTIVE TEENAJASWANT CARDENAS [place] [facility] Encounter Notes: All associated encounter notes This section contains the clinical notes associated to the Encounter. Date/Time Encounter Note(s) Provider Source Nov 05, 2023 01:21 PM PHYSICAL MEDICINE REHAB PHYSICIAN NOTE: LOCAL TITLE: PM&R FOLLOW-UP STANDARD TITLE: PHYSICAL MEDICINE REHAB PHYSICIAN NOTE DATE OF NOTE: NOV 05, 2023@13:21 ENTRY DATE: NOV 05, 2023@13:21:33 AUTHOR: АНДРЕЙ HUSSEIN COSIGNER: URGENCY: STATUS: COMPLETED NOV 05, 2023 KONRADWADECOLBY BALBUENA II is a 53 y/o MALE who [...] Gout 13. Traumatic brain injury (SNOMED CT [id number]) 14. Asthma Soc Hx: MARITAL STATUS - [...] new studies ASSESSMENT/PLAN: Patient is a 53-year-old Idamay with improved lumbar radiculopathy. Knee pain is [...] VA or non-VA provider. /dheeraj/ АНДРЕЙ HUSSEIN [facility] Signed: 11/05/2023 13:51 АНДРЕЙ HUSSEIN [place] [facility] [place] [facility] Nov 05, 2023 01:20 PM ACCOUNTING OF [...] standard clinical care, and in accordance with [facility] policy. Patient information was shared with the PDMP [place]. No prescription(s) for controlled substances outside the [facility] were found in the last 90 days. /dheeraj/ АНДРЕЙ HUSSEIN [facility] Signed: 11/05/2023 13:21 АНДРЕЙ HUSSEIN [place] [facility]
--- OUTSIDE RECORDS SUMMARY | 2024-10-25 11:07 | XMS_ITS | Encounter Summary ---
Author Name [facility] [place] [facility] [place] [facility] [facility] [place] Address [address] [place] [address] Care Team Providers Care Chromium Plater Name Role Phone EHSAN OVALLES Primary Care [...] PART A December 08, 2013 PART A [id number] 62A BRIGID RAMOS PATIENT MEDICARE (WNR) MEDICARE (M) PART A December 08, 2013 PART A [id number] BRIGID RAMOS PATIENT MEDICARE (WNR) MEDICARE (M) PART A December 08, 2013 PART A [id number] 62A BRIGID RAMOS PATIENT MEDICARE (WNR) MEDICARE (M) PART A December 08, 2013 PART A [id number] BRIGID RAMOS PATIENT Selected Encounter This section includes the information on record at [place] for the Encounter. Date/Time Encounter Type Encounter Description Reason Provider Source January 05, 2024 01:00 PM OFFICE O/P EST MOD 30 MIN PM&RS PHYSICIAN ICD-10-CM M25.562 Pain in left knee АНДРЕЙ HUSSEIN [facility] Encounter Template Text not used by [place] Assessments - Encounter Diagnoses This section includes the primary and secondary diagnoses documented for the Encounter. Date/Time Primary/Secondary Diagnosis Diagnosis Name Provider Source Jan 28, 2024 12:54 PM PRIMARY Pain in left knee SHARMILA HUSSEIN [place] [facility] Jan 28, 2024 12:54 PM SECONDARY Other obesity SHARMILA HUSSEIN [place] [facility] Plan of Treatment: Future Appointments (+ 6 months) and Future Tests (+/- 45 days) The Plan of Treatment section includes future care activities for the patient from all [place] [facility] This section includes future appointments and future orders which are active, pending or scheduled. Future Appointments This section includes appointments that were scheduled to occur 6 months from the date of the Encounter, up to a maximum of 20 appointments. The data comes from all [place] treatment facilities. Appointment Date/Time Appointment Type Appointme nt Facility Name Jan 15, 2024 09:30 AM AMBULATORY - REHAB MEDICIN E [facility] Feb 23, 2024 09:00 AM AMBULATORY - MEDICINE [place] [facility] Feb 25, 2024 01:00 PM AMBULATORY - REHAB MEDICIN E [place] [facility] [place] Mar 21, 2024 10:00 AM AMBULATORY - MEDICINE [place] [facility] Mar 24, 2024 01:00 PM AMBULATORY - MEDICINE [facility] [place] Apr 06, 2024 10:00 AM AMBULATORY - MEDICINE [place] [facility] May 24, 2024 12:00 PM AMBULATORY - NONE [facility] [place] May 31, 2024 11:30 AM AMBULATORY - MEDICINE [facility] [place] Jun 03, 2024 09:50 AM AMBULATORY - MEDICINE [facility] Jun 07, 2024 11:30 AM AMBULATORY - NONE [facility] [place] Jul 05, 2024 01:30 PM AMBULATORY - MEDICINE [place] [facility] Vital Signs: All taken on the encounter date This section contains inpatient and outpatient Vital Signs collected on the date of the Encounter. Date/Time Temperature Pulse Blood Pressure Respiratory Rate SP02 Pain Height Weight Body Mass Index Source January 05, 2024 01:07 PM 73 140/88 24 95 8 [phone] 43 [facility] Social History: Smoking Status (Most current) and Tobacco Use (All prior to encounter date) This section includes the most current, and the historical, smoking and tobacco- related health factors from the [place] facility where the Encounter took place. Current Smoking Status This section includes the most current smoking, or tobacco-related health factor, from the [place] facility where the Encounter took place. Date/Time Current Smoking Status Comment Facil ity May 12, 2023 10:46 AM VA-TOBACCO NEVER USED [facility] Tobacco Use History This section includes a history of the smoking, or tobacco-related health factors, that were collected on or before the date of the Encounter. The data comes from the [place] facility where the Encounter took place. Date/Time Smoking Status/Tobacco Use Comment F acility Oct 20, 2015 10:30 AM LIFETIME NON-TOBACCO USER [facility] Sep 19, 2009 11:13 AM LIFETIME NON-TOBACCO USER [facility] Advance Directives: All historical and current Section Date Range: From patient's date of to the date document was created. This section includes ALL of a patient's completed or amended [place] Advance and Rescinded Directives. The entries below indicate that a directive exists for the patient, but an actual copy is not included with this document. The data comes from all [place] facilities. Date Advance Directives Provider Source Mar 22, 2018 ADVANCE DIRECTIVE JASWANT DICKINSON [facility] Encounter Notes: All associated encounter [...] INFORMED CONSENT: Obtained verbally, and through IMED. [place] presents today with significant improvement in pain. [...] with the injection. TIME OUT NOTE TIME:December@13:30 correctly stated: [X]Full name: COLBY HARTLEY II [X]Last 4 of #: [id number] [X]: Apr PROVIDER NAME: Андрей Hussein PA-c STAFF NAME: Anum Mahajan LPN Lot #: [id number] Exp: Jun 2025 The procedure was performed [...] Post-procedure pain level: 2/10 Assessment and plan: [place] will proceed with physical therapy. Received intra-articular [...] of active outpatient prescriptions dispensed from this [place] (local) and dispensed from another [place] or [facility] facility (remote) as well as inpatient [...] FACILITY ALLERGY/ADR -------- CLNCL/HLTH MADDY REPT EFF [id number] [facility] [place] [place] [place] [place] [facility] Med. Reconciliation (Tool #1) INCLUDED IN THIS LIST: Alphabetical list of active outpatient prescriptions dispensed from this [place] (local) and dispensed from another [place] or [facility] facility (remote) as well as inpatient orders (local pending and active), local clinic medications, locally documented non-VA medications, and local prescriptions that have or been discontinued in the past 90 days. Non-VA Meds Last Documented On: Data not found NOTE The display of VA prescriptions dispensed from another [place] or [facility] facility (remote) is limited to active outpatient prescription entries matched to National Drug File at the originating site and may not include some items such as investigational drugs, compounds, etc. NOT INCLUDED IN THIS LIST: Medications self-entered by the patient into personal health records (i.e. [email or web address]) are NOT included in this list. Non-VA medications documented outside this [place], remote inpatient orders (regardless of status) and remote clinic medications are NOT included in this list. The patient and provider must always discuss medications the patient is taking, regardless of where the medication was dispensed or obtained. OUTPT ACETAMINOPHEN 500MG TAB (Status = Active) TAKE TWO TABLETS BY MOUTH THREE TIMES DAILY NEEDED FOR PAIN Rx# [id number] Last Released: 12/23/23 Qty/Days Supply: 200 Rx Expiration Date: 03/11/24 Refills Remainin Indication: FOR PAIN OUTPT ALBUTEROL 90MCG (CFC-F) 200D ORAL INHL (Status = Active) INHALE 2 PUFFS BY MOUTH FOUR TIMES DAILY NEEDED FOR SHORTNESS OF BREATH Rx# [id number] Last Released: 12/23/23 Qty/Days Supply: Rx Expiration Date: 05/12/24 Refills Remainin OUTPT BUPRENORPHINE 150MCG BUCCAL FILM (Status = Active) PLACE ONE FILM BETWEEN CHEEK AND GUM UNTIL DISSOLVED THREE TIMES A DAY FOR PAIN Rx# [id number] Last Released: 12/29/23 Qty/Days Supply: 90 Rx Expiration Date: 06/24/24 Refills Remainin Indication: FOR PAIN OUTPT BUPRENORPHINE 300MCG BUCCAL FILM (Status = Discontinued) PLACE ONE FILM BETWEEN CHEEK AND GUM UNTIL DISSOLVED EVERY 12 HOURS FOR PAIN Rx# [id number] Last Released: 10/13/23 Qty/Days Supply: 6030 Rx Expiration Date: 03/10/24 Refills Remainin Indication: FOR PAIN OUTPT CHOLECALCIF 50MCG (D3-2,000UNIT) TAB (Status = Active) TAKE TWO TABLETS BY MOUTH EVERY DAY FOR VITAMIN SUPPLEMENTATION Rx# [id number] Last Released: 12/23/23 Qty/Days Supply: 200/ Rx Expiration Date: 05/12/24 Refills Remainin OUTPT CLOMIPHENE CITRATE 50MG TAB (Status = Active) TAKE ONE-HALF TABLET BY MOUTH ONCE DAILY Rx# [id number] Last Released: 12/23/23 Qty/Days Supply: 30 Rx Expiration Date: 11/03/24 Refills Remainin OUTPT DICLOFENAC NA 1% TOP GEL (Status = Active) APPLY 4 GRAMS TOPICALLY FOUR TIMES A DAY FOR OSTEOARTHRITIS - USE DOSING CARD PROVIDED IN BOX Rx# [id number] Last Released: 03/11/23 Qty/Days Supply: 300/30 Rx Expiration Date: 03/11/24 Refills Remainin Indication: FOR JOINT PAIN OUTPT FLUTICAS 500/SALMETEROL 50 INHL DISK 60 (Status = Active) INHALE 1 PUFF BY MOUTH TWICE DAILY - RINSE MOUTH AFTER USE Rx# [id number] Last Released: 12/23/23 Qty/Days Supply: Rx Expiration Date: 05/12/24 Refills Remainin OUTPT LIDOCAINE 5% OINT (Status = Active) APPLY THIN LAYER TOPICALLY TWICE DAILY TO THREE TIMES A DAY NEEDED FOR MINOR SKIN WOUND PAIN Rx# [id number] Last Released: 08/18/23 Qty/Days Supply: 105 Rx Expiration Date: 08/14/24 Refills Remainin Indication: FOR MINOR SKIN WOUND PAIN OUTPT LOSARTAN 100MG TAB (Status = Active/Suspended) TAKE ONE TABLET BY MOUTH ONCE DAILY FOR BLOOD PRESSURE/HEART Rx# [id number] Last Released: 12/16/23 Qty/Days Supply: Rx Expiration Date: 05/12/24 Refills Remainin OUTPT MONTELUKAST NA 10MG TAB (Status = Active/Suspended) TAKE ONE TABLET BY MOUTH AT BEDTIME FOR CONTROLLER MEDICATION FOR ASTHMA Rx# [id number] Last Released: 10/30/23 Qty/Days Supply: Rx Expiration Date: 10/29/24 Refills Remainin Indication: FOR CONTROLLER MEDICATION FOR ASTHMA OUTPT NAPROXEN 500MG TAB (Status = Discontinued) TAKE ONE TABLET BY MOUTH TWICE DAILY TAKE WITH FOOD Rx# [id number] Last Released: 10/10/23 Qty/Days Supply: Rx Expiration Date: 08/13/24 Refills Remainin Indication: FOR INFLAMMATION OUTPT NAPROXEN 500MG TAB (Status = Active) TAKE ONE TABLET BY MOUTH TWICE DAILY TAKE WITH FOOD Rx# [id number] Last Released: 12/23/23 Qty/Days Supply: Rx Expiration Date: 11/05/24 Refills Remainin Indication: FOR INFLAMMATION OUTPT OMEPRAZOLE 20MG EC CAP (Status = Active) TAKE ONE CAPSULE BY MOUTH TWICE DAILY Rx# [id number] Last Released: 12/23/23 Qty/Days Supply: Rx Expiration Date: 05/12/24 Refills Remainin OUTPT OXYCODONE HCL 5MG TAB NOT SA (Status = ) TAKE TWO TABLETS BY MOUTH TWICE DAILY NEEDED FOR PAIN NOT FOR USE EVERY DAY (NEXT FILL 10/08/23) Rx# [id number] Last Released: 09/10/23 Qty/Days Supply: Rx Expiration Date: 10/08/23 Refills Remainin Indication: FOR PAIN OUTPT PRAZOSIN HCL 1MG CAP (Status = ) TAKE THREE CAPSULES BY MOUTH AT BEDTIME TAKE DOSE AT 11 PM. Rx# [id number] Last Released: 12/08/22 Qty/Days Supply: Rx Expiration Date: 12/03/23 Refills Remainin Indication: OFF LABEL FOR NIGHTMARES OUTPT PREGABALIN 100MG ORAL CAP (Status = Discontinued) TAKE ONE CAPSULE BY MOUTH TWICE DAILY FOR PAIN Rx# [id number] Last Released: 09/10/23 Qty/Days Supply: Rx Expiration Date: 03/10/24 Refills Remainin Indication: FOR PAIN OUTPT PREGABALIN 100MG ORAL CAP (Status = Active) TAKE ONE CAPSULE BY MOUTH TWICE DAILY FOR PAIN Rx# [id number] Last Released: 12/24/23 Qty/Days Supply: Rx Expiration Date: 05/26/24 Refills Remainin Indication: FOR PAIN OUTPT PREGABALIN 75MG ORAL CAP (Status = Discontinued) TAKE ONE CAPSULE BY MOUTH TWICE DAILY FOR PAIN Rx# [id number] Last Released: 11/05/23 Qty/Days Supply: Rx Expiration Date: 05/07/24 Refills Remainin Indication: FOR PAIN OUTPT SILDENAFIL CITRATE 100MG TAB (Status = ) TAKE ONE TABLET BY MOUTH ONCE DAILY NEEDED TAKE 1 HOUR PRIOR TO SEXUAL ACTIVITY Rx# [id number] Last Released: 04/17/23 Qty/Days Supply: 02/06 Rx Expiration Date: 11/14/23 Refills Remainin Indication: FOR ERECTILE DYSFUNCTION OUTPT TESTOSTERONE CYP 200MG/ML 1ML IN OIL (Status = Active) INJECT 0.5ML (100MG) INTRAMUSCULARLY ONCE A WEEK VIALS ARE ONLY TO BE USED ONE TIME Rx# [id number] Last Released: 10/19/23 Qty/Days Supply: 12/05 Rx Expiration Date: 04/16/24 Refills Remainin SUPPLIES PHARMACY TERMS AND POSSIBLE PATIENT ACTIONS INPT = VA inpatient order IV = VA intravenous medication OUTPT = [place] outpatient prescription PHARMACY POSSIBLE PATIENT TERMS EXPLANATION ACTIONS -------- ------ ACTIVE A prescription that can be If you have refills, filled at the local [place] pharmacy. you may request a refill of this prescription from your VA pharmacy. CLINIC A medication you received during If you have questions a visit to a [place] clinic or about this medication emergency department. contact your VA healthcare team. DISCONTINUED A prescription your provider has Contact your VA stopped. It is no longer healthcare team if you available to be sent to you or need more of this picked up at the [place] pharmacy medication. window. A prescription which is [...] the VA. Or, it may be an fnxr-fab-xwaxmsl (OTC), herbal, dietary supplements or sample medication. [...] An active prescription that is Contact your [place] not scheduled to be filled yet. pharmacy if you need You should receive it before this medication now. you run out. /dheeraj/ [facility] Signed: 01/05/2024 13:53 АНДРЙЕ HUSSEIN [facility]
--- OUTSIDE RECORDS SUMMARY | 2024-10-25 11:07 | XMS_ITS ---
Author Name [facility] [place] [facility] [place] [facility] [place] Address [address] [place] [address] Care Team Providers Care Wage Hand Name Role Phone EHSAN OVALLES Primary Care [...] PART A December 08, 2013 PART A [id number] [id number] BRIGID RAMOS PATIENT MEDICARE (WNR) MEDICARE (M) PART A December 08, 2013 PART A [id number] [id number] [id number] BRIGID RAMOS PATIENT MEDICARE (WNR) MEDICARE (M) PART A December 08, 2013 PART A [id number] 62A BRIGID RAMOS PATIENT MEDICARE (WNR) MEDICARE (M) PART A December 08, 2013 PART A [id number] BRIGID RAMOS PATIENT Selected Encounter This section includes the information on record at [place] for the Encounter. Date/Time Encounter Type Encounter Description Reason Pro vider Source Oct 10, 2024 01:59 PM Outpatient Encounter COMMUNITY CARE CONSULT IHE Encounter Template Text not used by [place] Plan of Treatment: Future Appointments (+ 6 months) and Future Tests (+/- 45 days) The Plan of Treatment section includes future care activities for the patient from all [place] [facility] This section includes future appointments [...] 13, 2024 09:00 AM AMBULATORY - MEDICINE [place] [facility] [place] [facility] Oct 25, 2024 10:00 AM AMBULATORY - MEDICINE [place] [facility] [place] [facility] Nov 01, 2024 11:30 AM AMBULATORY - MEDICINE [place] [facility] [place] [facility] Nov 14, 2024 09:30 AM AMBULATORY - NONE [facility] [place] [facility] December 26, 2024 09:30 AM AMBULATORY - NONE [place] [facility] [place] [facility] Feb 28, 2025 10:00 AM AMBULATORY - MEDICINE [place] [facility] [place] [facility] Apr 12, 2025 10:00 AM AMBULATORY - MEDICINE [place] [facility] [place] [facility] Active, Pending, and Scheduled Orders This section includes a listing of several types of active, pending, and scheduled orders, including clinic medications orders, diagnostic test orders, procedure orders and consult orders; where thestart date of the order is 45 days before the date of the Encounter or 45 days after the date of the Encounter. The data comes from all [place] treatment [facility]. Test Date/Time Test Type Test Details Facility Name Aug 30, 2024 12:11 PM Consult Order DENTAL CON SULT OUTPT Cons Wet Process [facility] [place] [facility] Aug 30, 2024 12:33 PM Consult Order COMMUNITY CARE-DENTAL GENERAL Cons Wet Process [facility] [place] [facility] Sep 25, 2024 11:32 AM Consult Order COMMUNITY CARE-RADIOLOGY XRAY Cons Wet Process [facility] [place] [facility] Sep 27, 2024 09:40 AM Consult Order COMMUNITY CARE-COLONOSCOPY Cons Wet Process [facility] [place] [facility] Oct 10, 2024 03:55 PM Consult Order COMMUNITY CARE-ORTHO SURGICAL Cons Wet Process [facility] Social History: Smoking Status (Most current) [...] 2023 10:46 AM VA-TOBACCO NEVER USED [facility] Tobacco Use History This section includes a history of the smoking, or tobacco-related health factors, that were collected on or before the date of the Encounter. The data comes from the [place] facility where the Encounter took place. Date/Time Smoking Status/Tobacco Use Comment Trisha batool Oct 20, 2015 10:30 AM LIFETIME NON-TOBACCO USER [facility] Sep 19, 2009 11:13 AM LIFETIME NON-TOBACCO USER [facility] Advance Directives: All historical and current [...] Mar 22, 2018 ADVANCE DIRECTIVE JASWANT DICKINSON [facility] Encounter Notes: All associated encounter notes This section contains the clinical notes associated to the Encounter. Date/Time Encounter Note(s) Provider Source Oct 10, 2024 01:59 PM ADMINISTRATIVE NOTE: LOCAL TITLE: ADMINISTRATIVE NOTE STANDARD TITLE: ADMINISTRATIVE NOTE DATE OF NOTE: OCT 10, 2024@13:59 ENTRY DATE: OCT 10, 2024@13:59:50 AUTHOR: CHIARA GRAHAM COSIGNER: URGENCY: STATUS: COMPLETED Community Provider is seeking Continuation of Care referral. [facility] [address] [place] [address] Group Last referral ended 2/25 /es/ CHIARA GRAHAM CARE IN THE COMMUNITY RELATIONS Signed: 10/10/2024 14:00 Receipt Acknowledged By: 10/11/2024 09:11 /es/ TAMEKA DOSS, SUNIL REGISTERED NURSE 10/10/2024 15:57 /es/ EHSAN OVALLES MD Primary Care Physician [facility]
--- OUTSIDE RECORDS SUMMARY | 2024-10-25 11:07 | XMS_ITS | Continuity of Care Document ---
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 [place] [address] [address] Performing Lab: [facility] [address] [facility] CANNABINO IDS SCREEN PANEL CANNABINOID S [...] May 11, 2024 03:52 PM Reporting Lab: [address] [address] Performing Lab: [address] [address] [facility] CANNABINO IDS SCREEN PANEL PH OF [...] May 11, 2024 03:52 PM Reporting Lab: [address] [address] Performing Lab: [address] [address] [facility] CANNABINO IDS SCREEN PANEL CREATININE [MASS/VOLUM [...] May 11, 2024 03:52 PM Reporting Lab: [facility] [place] [facility] [address] [facility] [address] Performing Lab: [facility] [place] [facility] [address] [facility] [address] [facility] [place] [facility] CANNABINO IDS SCREEN PANEL SPECIFIC GRAVITY OF [...] may have been adulterated . Ordering Provider: LTARICE WILSON Report Released Date/Time: May 11, 2024 03:52 PM Reporting Lab: [facility] [place] [facility] [address] [facility] [address] Performing Lab: [facility] [place] [facility] [address] [facility] [address] [facility] [place] [facility] Vital Signs Combined list of inpatient and outpatient Vital Signs from Department of Defense and Veterans Affairs, ranging from 12 months to all on record, depending upon the facility. Vital Sign Value Date Comments Source SYSTOLIC BLOOD PRESSURE 156 08/30/19 25 11:15:32 [facility] [place] [facility] DIASTOLIC BLOOD PRESSURE 99 025 11:15:32 [facility] [place] [facility] PULSE OXIMETRY 97 08/30/2024 11:15:32 [facility] [place] [facility] WEIGHT 342.6 08/30/2024 11:15:32 [facility] [place] [facility] BMI 45 kg/m2 08/30/2024 11:15:32 [facility] [place] [facility] PAIN 0 08/30/2024 11:15:32 [facility] [place] [facility] HEIGHT 73 08/30/2024 11:15:32 [facility] [place] [facility] TEMPERATURE 98.3 08/30/2024 11:15:32 [facility] [place] [facility] PULSE 71 08/30/2024 11:15:32 [facility] [place] [facility] RESPIRATION 16 08/30/2024 11:15:32 [facility] [place] [facility] SYSTOLIC BLOOD PRESSURE 150 07/27/20 24 14:31:42 [...] 11:47:41 [facility] [place] [facility] BMI 43 kg/m2 05/31/2024 11:47:41 [facility] [place] [facility] [...] 13:18:53 [facility] [place] [facility] BMI 44 kg/m2 02/25/2024 13:18:53 [facility] [place] [facility] [...] 13:07:34 [facility] [place] [facility] BMI 43 kg/m2 01/05/2024 13:07:34 [facility] [place] [facility] PAIN 8 01/05/2024 13:07:34 [facility] [place] [facility] PULSE 73 01/05/2024 13:07:34 [facility] [place] [facility] RESPIRATION 24 01/05/2024 13:07:34 [facility] [place] [facility] Encounters Combined list of: 1) Encounters from Department of Veterans Affairs facilities going backup to the last 18 months, not all VA inpatient encounters are included; 2) Encounters from the Department of [facility] facilities going backup to 280 months. Location Location Details Encounter Type Encounter Number Reason For Visit Attending Provider ADM Date DC Date Status Disposition Source [facility] OFFICE O/P EST MOD 30-39 MIN [id number] Diagnos is: ICD-10- CM I10 Essenti al (primar y) hyperte nsion RONNIE OVALLES 05/12 [place] [facility] [place] [facility] IMMUNIZATI ON ADMIN EACH ADD [id number] RONNIE OVALLES 05/12 [facility] [place] Encounter [id number] 05/13 [facility] [place] En[facility] [id number] 05/13 [facility] [place] OFF[facility] O/P EST MOD 30-39 MIN [id number] Diagnos is: ICD-10- CM M54.50 Low back pain, unspeci fied NICKI TIPTON 05/14 [facility] [place] En[facility] [id number] 05/21 [facility] [place] POS AIRWAY PRESSURE CPAP [id number] Diagnos is: ICD-10- CM G47.30 Sleep apnea, unspeci fied RICHY NGUYEN 05/22 [facility] Encounter [id number] Diagnos is: ICD-10- CM M54.50 Low back pain, unspeci fied CUTLERNICKI S 06/18 [facility] En[facility] [id number] [facility] [place] [place] [id number] [facility] [place] [place] En[facility] [id number] [facility] [place] En[facility] [id number] 06/30 [facility] [place] En[facility] [id number] 06/30 [facility] En[facility] [id number] 07/13 [facility] OFF[facility] O/P EST MOD 30-39 MIN [id number] Diagnos is: ICD-10- CM M54.50 Low back pain, unspeci fied CUTLERNICKI S 07/14 [facility] En[facility] [id number] 07/16 [facility] En[facility] [id number] 07/16 [facility] En[facility] [id number] 07/24 [facility] [place] [place] [facility] OFFICE O/P EST HI 40-54 MIN [id number] Diagnos is: ICD-10- CM M25.562 Pain in left knee CUTLERNICKI S 07/28 [facility] [place] [facility] OFFICE O/P EST LOW 20-29 MIN [id number] Diagnos is: ICD-10- CM M54.50 Low back pain, unspeci fied RONNIE OVALLES Abeba BRI 07/31 [place] [facility] En[facility] [id number] 08/12 [facility] En[facility] [id number] LIS DUGGAN 08/13 [facility] [place] [facility] OFFICE O/P EST MOD 30 MIN [id number] Diagnos is: ICD-10- CM M54.50 Low back pain, unspeci fied NICKI TIPTON S 08/13 [facility] En[facility] [id number] LIS DUGGAN 08/14 [facility] En[facility] [id number] 08/20 [facility] En[facility] [id number] 08/21 [facility] En[facility] [id number] 08/26 [facility] En[facility] [id number] NICKI TIPTON S 09/08 [facility] En[facility] [id number] NICKI TIPTON S 09/08 [facility] En[facility] [id number] Diagnos is: ICD-10- CM M54.50 Low back pain, unspeci fied NICKI TIPTON S 09/08 [facility] En[facility] [id number] 09/15 [facility] [place] [facility] OFFICE O/P EST MOD 30 MIN [id number] Diagnos is: ICD-10- CM M54.50 Low back pain, unspeci fied NICKI TIPTON S 09/16 [facility] OFF[place] O/P [place] 60 MIN [id number] Diagnos is: ICD-10- CM M54.50 Low back pain, unspeci fied Juan Diego PITTS 09/17 [facility] En[facility] [id number] 09/25 [facility] En[facility] [id number] 09/25 [facility] OFF[place] HI 40 MIN [id number] Diagnos is: ICD-10- CM G89.29 Other chronic pain KUPFERSCHM ID,JARAD B 09/29 [facility] OFF[place] HI 40 MIN [id number] Diagnos is: ICD-10- CM M54.16 Radicul opathy, lumbar region FALCON,QUE SINAN THI 09/30 [facility] En[facility] [id number] 09/30 [facility] En[facility] [id number] 10/20 [facility] En[facility] [id number] 10/28 [facility] En[facility] [id number] 10/28 [facility] En[facility] [id number] 10/28 [facility] En[facility] [id number] 10/29 [facility] En[facility] [id number] 10/29 [facility] En[facility] [id number] 11/02 [facility] [place] [facility] En[facility] [id number] 11/03 [facility] [place] [facility] OFFICE O/P EST LOW 20 MIN [id number] Diagnos is: ICD-10- CM M25.562 Pain in left knee Juan Diego PITTS 11/04 [facility] [place] [facility] OFFICE O/P EST LOW 20 MIN [id number] Diagnos is: ICD-10- CM I10 Essenti al (primar y) hyperte nsion RONNIE OVALLES 11/10 [place] [facility] [place] [facility] Outpatient Encounter [id number] 11/22 [facility] [place] [facility] [place] [facility] OFFICE O/P EST MOD 30 MIN [id number] Diagnos is: ICD-10- CM M54.50 Low back pain, unspeci fied NICKI TIPTON 11/23 [facility] [place] [facility] En[facility] [id number] 11/24 [facility] Encounter [id number] Silvestre VALLECILLO 11/24 [facility] [place] [facility] En[facility] [id number] 11/24 [facility] [place] [facility] SELF CARE MNGMENT TRAINING [id number] Diagnos is: ICD-10- CM 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 MCDONALDNORI HOWARD 11/25 [place] [facility] [place] [facility] Outpatient Encounter [id number] 11/30 [facility] [place] [facility] [place] THERAPEUTI C EXERCISES [id number] Diagnos is: ICD-10- CM 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 MCDONALDNORI HOWARD 11/30 [place] [facility] En[facility] [id number] 12/07 [facility] [place] [facility] [place] MANUAL THERAPY 1/> REGIONS [id number] Diagnos is: ICD-10- CM 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 NORI MCDONALD 12[place]07 [place] [facility] [place] [facility] Outpatient Encounter [id number] Diagnos is: ICD-10- CM M54.50 Low back pain, unspeci fied CUTNICKI ESCOBEDO S 12/22 [facility] [place] [facility] [place] [facility] OFFICE O/P EST MOD 30 MIN [id number] Diagnos is: ICD-10- CM M25.562 Pain in left knee Juan Diego PITTS 01/04 [facility] En[facility] [id number] 01/04 [facility] En[facility] [id number] 01/11 [facility] [place] THERAPEUTI C EXERCISES [id number] Diagnos is: ICD-10- CM 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 NORI MCDONALD 01/14 [place] [facility] En[facility] [id number] 02/07 [facility] En[facility] [id number] 02/08 [facility] En[facility] [id number] 02/14 [facility] OFF[facility] O/P EST LOW 20 MIN [id number] Diagnos is: ICD-10- CM M25.562 Pain in left knee Juan Diego PITTS 02/24 [facility] En[facility] [id number] RA QUIN CERNA 03/01 [facility] 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 15 MIN [id number] Diagnos is: ICD-10- CM M25.562 Pain in left knee BENEDICT GILMORE 03/01 [facility] COMPRE [place]PH EXAM EST PT 1/ [id number] Diagnos is: ICD-10- CM Z87.820 Persona l history of traumat ic brain injury AMARJIT ARRIAGA 03/21 [facility] FIT SPECTACLES BIFOCAL [id number] Diagnos is: ICD-10- CM Z46.0 Encount er for fit/adj st of spectac les and contact lenses AMARJIT ARRIAGA 03/21 [facility] Outpatient Encounter [id number] 03/23 [facility] OFFICE O/P EST MOD 30 MIN [id number] Diagnos is: ICD-10- CM M25.562 Pain in left knee CUTLERNICKI S 03/24 [facility] Outpatient Encounter [id number] 04/06 [facility] Out[facility] Encounter [id number] 05/04 [facility] Out[facility]counter [id number] 05/04 [facility] Out[facility] Encounter [id number] 05/09 [facility] Out[facility] Encounter [id number] 05/10 [facility] Out[facility]counter [id number] 05/16 [facility]counter [id number] 1.05/16 [facility] Out[facility] Encounter [id number] 1.05/17 [facility]counter [id number] 1.05/20 [facility] [place] OFFICE O/P EST MOD 30 MIN [id number] Diagnos is: ICD-10- CM I10 Essenti al (primar y) hyperte nsion RONINE OVALLESE 05/31 [facility] ELECTROCAR DIOGRAM REPORT [id number] Diagnos is: ICD-10- CM Z13.6 Encount er for screeni ng for cardiov ascular disorde rs PRAKASH MURRY 05/31 [facility] Outpatient Encounter [id number] [facility] TTE W/DOPPLER COMPLETE [id number] Diagnos is: ICD-10- CM I44.7 Left bundle- branch block, unspeci fied DANISHA FLOREZ 06/07 [facility] OFF/OP CNSLTJ NEW/EST MOD 40 [id number] Diagnos is: ICD-10- CM I44.7 Left bundle- branch block, unspeci fied JOHN CLAYTON 06/09 [facility] Outpatient [facility]counter [id number] 06/21 [facility] Outpatient [facility]counter [id number] 1.06/29 [facility] Outpatient [facility]counter [id number] 1.07/05 [facility] Outpatient [facility]counter [id number] 1.07/06 [facility] Out[facility]counter [id number] 07/06 [facility] Out[facility]counter [id number] 1. MARCIE DOSS OLAS 07/18 [facility] Out[facility]counter [id number] 07/18 [facility] Out[facility] Encounter [id number] 07/20 [facility] COLLJ & INTERPJ DATA EA 30 D [id number] Diagnos is: ICD-10- CM G47.30 Sleep apnea, unspeci fied RICHY NGUYEN A 07/20 [facility] Out[facility] Encounter [id number] MARCIE DOSS OLAS 07/20 [facility] Outpatient Encounter [id number] 07/20 [facility] OFFICE O/P EST HI 40 MIN [id number] Diagnos is: ICD-10- CM M54.16 Radicul opathy, lumbar region YAIR FALCON 07/27 [facility] Outpatient Encounter [id number] 07/27 [facility] Outpatient Encounter [id number] 08/18 [facility] Out[facility] Encounter [id number] 08/24 [facility] Out[facility] Encounter [id number] 08/30 [facility] OFFICE O/P EST LOW 20 MIN [id number] Diagnos is: ICD-10- CM I10 Essenti al (primar y) hyperte RONNIE Bunch 08/30 [place] [facility] Out[facility] Encounter [id number] 09/09 [facility] OFFICE O/P EST MOD 30 MIN [id number] Diagnos is: ICD-10- CM M25.562 Pain in left knee Juan Diego PITTS 09/14 [facility] NQHP OL DIG ASSMT&MGMT 5-10 [id number] Diagnos is: ICD-10- CM R69 Illness , unspeci fied SOVEROW,CH RISTY A 09/22 [facility] Outpatient Encounter [id number] 09/27 [facility] Outpatient Encounter [id number] 10/10 [facility] Outpatient Encounter [id number] 10/10 [facility] Outpatient Encounter [id number] 10/24 [facility] Social History Combined list of available smoking, tobacco, and other social history from Department of Defense and Veterans Affairs facilities. Social History Type Response Date Comment Sourc e Tobacco smoking status NHIS VA-TOBACCO NEVER USED 05/31/2024 [facility] History of tobacco use VA-TOBACCO NEVER USED 05/12/2023 [facility] [place] [facility] History of tobacco use VA-TOBACCO NEVER USED 05/26/2022 [facility] History of tobacco use VA-TOBACCO NEVER USED 05/21/2021 [facility] History of tobacco use VA-TOBACCO NEVER USED 08/08/2019 [facility] History of tobacco use VA-TOBACCO NEVER USED 06/28/2018 [facility] History of tobacco use LIFETIME NON-TOBACCO USER 05/28/2017 [place] History of tobacco use LIFETIME NON-TOBACCO USER 10/20/2015 [facility] [place] [facility] History of tobacco use LIFETIME NON-TOBACCO USER 09/19/2009 [facility] [place] [facility] History of tobacco use LIFETIME NON-USER OF TOBACCO 10/27/2006 [place] History of tobacco use LIFETIME NON-SMOKER/TOBACCO USER 08/21/2004 [facility] Plan of Care List of future care activities from Department of Veterans Affairs facilities. Additional future care activities may be listed in the Assessment and Plan section. Date/Time Care Activity Care Activity Detail Facili ty 10/25/2024 AMBULATORY - MEDICINE AMBULATORY - MEDICI [place] [facility] [place] [facility] 11/01/2024 AMBULATORY - MEDICINE AMBULATORY - MEDICI [place] [facility] [place] [facility] 11/14/2024 AMBULATORY - NONE AMBULATORY - NONE [facility] [place] [facility] 12/26/2024 AMBULATORY - NONE AMBULATORY - NONE [facility] [place] [facility] 02/28/2025 AMBULATORY - MEDICINE AMBULATORY - MEDICI [place] [facility] [place] [facility] 04/12/2025 AMBULATORY - MEDICINE AMBULATORY - MEDICI [place] [facility] [place] [facility] 09/25/2024 Consult Order COMMUNITY CARE-R ADIOLOGY XRAY Cons [employer] [facility] [place] [facility] 09/27/2024 Consult Order COMMUNITY CARE-C OLONOSCOPY Cons [employer] [facility] [place] [facility] 10/10/2024 Consult Order COMMUNITY CARE-O RTHO SURGICAL Cons [employer] [facility] Advance Directives List of completed, amended, or rescinded Advance Directives on record at [facility] facilities. An actual copy of the Directive is not included. Date Advance Directive Provider Source 03/22/2018 ADVANCE DIRECTIVE JASWANT DICKINSON [facility]
--- OUTSIDE RECORDS SUMMARY | 2024-10-25 11:07 | XMS_ITS ---
Author Name [facility] [place] [facility] [facility] [place] Address [address] [place] [address] Care Team Providers Care Operational Communication Chief Name Role Phone EHSAN OVALLES Primary [...] PART A December 08, 2013 PART A [id number] BRIGID RAMOS PATIENT MEDICARE (WNR) MEDICARE (M) PART A December 08, 2013 PART A [id number] [phone] BRIGID RAMOS PATIENT MEDICARE (WNR) MEDICARE (M) PART A December 08, 2013 PART A [id number] 62A BRIGID RAMOS PATIENT MEDICARE (WNR) MEDICARE (M) PART A December 08, 2013 PART A [id number] BRIGID RAMOS PATIENT Selected Encounter This section includes the information on record at [place] for the Encounter. Date/Time Encounter Type Encounter Description Reason Provider Source Sep 14, 2024 01:00 PM OFFICE O/P EST MOD 30 MIN PM&RS PHYSICIAN ICD-10-CM M25.562 Pain in left knee АНДРЕЙ HUSSEIN E Encounter Template Text not used by [place] Assessments - Encounter Diagnoses This section includes the primary and secondary diagnoses documented for the Encounter. Date/Time Primary/Secondary Diagnosis Diagnosis Name Provider Source Sep 17, 2024 09:06 AM PRIMARY Pain in left knee SHARMILA HUSSEIN [facility] Sep 17, 2024 09:06 AM SECONDARY Radiculopathy, lumbar region [facility] Plan of Treatment: Future Appointments (+ 6 months) and Future Tests (+/- 45 days) The Plan of Treatment section includes future care activities for the patient from all [place] [facility]. This section includes future appointments and future orders which are active, pending or scheduled. Future Appointments This section includes appointments that were scheduled to occur 6 months from the date of the Encounter, up to a maximum of 20 appointments. The data comes from all [facility]. Appointment Date/Time Appointment Type Appointme nt Facility Name Oct 13, 2024 09:00 AM AMBULATORY [place]ICINE [place] [facility] Oct 25, 2024 10:00 AM AMBULATORY [place]ICINE [place] [facility] [place] [facility] Nov 01, 2024 11:30 AM AMBULATORY - MEDICINE [place] [facility] [place] [facility] Nov 14, 2024 09:30 AM AMBULATORY - NONE [place] [facility] [place] [facility] December 26, 2024 09:30 AM AMBULATORY - NONE [place] [facility] [place] [facility] Feb 28, 2025 10:00 AM AMBULATORY - MEDICINE [facility] [place] [facility] Active, Pending, and Scheduled Orders This section includes a listing of several types of active, pending, and scheduled orders, including clinic medications orders, diagnostic test orders, procedure orders and consult orders; where the start date of the order is 45 days before the date of the Encounter or 45 days after the date of theEncounter. The data comes from all [facility]. Test Date/Time Test Type Test Details Facility Name Aug 30, 2024 12:11 PM Consult Order DENTAL CON SULT OUTPT Cons [employer] Binder[employer] Choice [facility] Aug 30, 2024 12:33 PM Consult Order COMMUNITY CARE-DENTAL GENERAL Cons [employer] [facility] [place] [facility] Sep 25, 2024 11:32 AM Consult Order COMMUNITY [facility]-RADIOLOGY XRAY Cons Tie Binder[facility] Choice [facility] [place] [facility] Sep 27, 2024 09:40 AM Consult Order COMMUNITY [facility]-COLONOSCOPY Cons Tie [facility] [place] [facility] Oct 10, 2024 03:55 PM Consult Order COMM[facility]ITY [facility]-ORTHO SURGICAL Cons Tie Binder's Choice [place] [facility] [place] [facility] Lab Results: +/- 30 days of [...] Range Comment Aug 26, 2024 07:39 AM [facility] LIPID PANEL FASTING Specimen Type: SERUM No comment entered. Ordering Provider: EHSAN OVALLES Report Released Date/Time: May 31, 2024 12:43 PM Reporting Lab: [facility] [address] [facility] [phone] Performing Lab: [facility] [place] [facility] [address] [address] CHOLESTEROL 140 mg/dL TRIGLYCERIDE 58 mg/dL 0-150 LDL calculated 85 mg/dL 0-129 CHOL/HDL 3.3 HDL CHOLESTEROL 43 mg/dL 40-60 Aug 26, 2024 07:39 AM [facility] LIVER FUNCTION Specimen Type: SERUM No comment entered. Ordering Provider: EHSAN OVALLES Report Released Date/Time: May 31, 2024 12:43 PM Reporting Lab: [facility] [place] [facility] [address] [facility] [phone] Performing Lab: [facility] [address] [phone] PROTEIN,TOTAL 7.2 g/dL 6.0-8.3 ALBUMIN 4.0 g/dL 3.5-5.0 ALKALINE PHOSPHATASE 58 U/L 40-150 AST 21 U/L 5-34 ALT 30 U/L BILIRUBIN, TOTAL 0.6 mg/dL 0.2-1.2 Aug 26, 2024 07:39 AM [facility] BASIC METABOLIC PANEL (fasting) Specimen Type: SERUM No comment entered. Ordering Provider: EHSAN OVALLES Report Released Date/Time: May 31, 2024 12:43 PM Reporting Lab: [facility] [address] [facility] [phone] Performing Lab: [facility] [address] [address] UREA NITROGEN 22 mg/dL 7-25 GLUCOSE 97 [...] 12, 2023 10:46 AM VA-TOBACCO NEVER USED [facility] Tobacco Use History This section includes a history of the smoking, or tobacco-related health factors, that were collected on or before the date of the Encounter. The data comes from the [place] facility where the Encounter took place. Date/Time Smoking Status/Tobacco Use Comment F acility Oct 20, 2015 10:30 AM LIFETIME NON-TOBACCO USER [facility] Sep 19, 2009 11:13 AM LIFETIME NON-TOBACCO USER [facility] Advance Directives: All historical and current [...] 2018 ADVANCE DIRECTIVE JASWANT DICKINSON [place] [facility] Encounter Notes: All associated encounter notes This section contains the clinical notes associated to the Encounter. Date/Time Encounter Note(s) Provider Source Sep 14, 2024 01:08 PM PHYSICAL MEDICINE REHAB PHYSICIAN NOTE: LOCAL TITLE: PM&R FOLLOW-UP STANDARD TITLE: PHYSICAL MEDICINE REHAB PHYSICIAN NOTE DATE OF NOTE: SEP 14, 2024@13:08 ENTRY DATE: SEP 14, 2024@13:08:07 AUTHOR: АНДРЕЙ HUSSEIN COSIGNER: URGENCY: STATUS: COMPLETED [place] Video Connect (VVC) Standard Documentation VVC Clinician Resources Only: E911 (Emergency Call Relay Center): [phone] [facility] Line - 988 then press #1. [facility] Suicide Coordinator [phone], Ext. [phone]; Back-up Ext. [phone] [place] Police, Joyce ESTEBAN [phone] Introduction: Visit is being conducted by [place] Mov[employer] Connect. [place] identified with 2 identifiers: [X] Full Name [X] Date of [ ] [place] ID Card Emergency Plan: [place] confirmed and/or provided the following information in case of emergency or technology failure. PATIENT PHONE - PHONE NUMBER [CELLULAR] - Is patient phone number correct, if not, enter below: 's phone number: COLBY BALBUENA ODILIA [address], [place], [address] 's present location and address for appointment: home 's emergency contact name and phone number: on file [place] reported that location is private and safe: Yes Informed Consent: informed of the risks and benefits of Telehealth video care. [place] has the right to refuse video services. If refuses video visit, a [id number] visit will be scheduled. verbalized consent for this video visit: Yes [place] provided consent for any other persons present for visit: N/A If yes, who and relationship to patient: Secure visit: Visit was locked for security and privacy:Yes Subjective:The last injection was helpful but more painful and improvement was less dramatic. Range of motion in the knee and back. Patient reports the followin was decompression. Improvement was approximately 4 years. Prior to decompression, had severe right leg weakness. He is still having pain in the left knee since the arthroscopy May [address] Garcia[address] He had partial meniscectomy. Still having pain. The pain in the leg is 60% in the left leg into the hip and knee. 40% is in the back. Stabbing sensation sacral region. Most uncomfortable is standing. Naprosyn bid is helpful. He has been taking buprenorphine 300 mcg taken bid ( feels loopy) Oxycodone was taken in the past and felt that it helped more. (constipation) Medications reviewed and reconciled Objective: Patient appears well and does not appear to be ill, converses appropriately, nondysarthric. is capable of transitioning without demonstration of severe dyscomfort. speech. Breathing unlabored. No appearance of distress A/P: 54-year-old gentleman with chronic low back pain, chronic left lumbar radiculopathy, status post lumbar decompression 2019 persistent left knee pain status postarthroscopy. [place] continues to be eager to return to exercise. She has a portion of the way that he has manage mental health in the past. He has significant sleep apnea and has not been able to tolerate lying flat sufficiently to have MRI. Will discuss potential CT myelogram Dr. Ramos. May require going to [facility] in order to have this done. He has discussed having a dental implant made so that he would be able to tolerate MRI. This raises question even as to whether or not it would work for him sufficiently. Arrangements will be made. will be contacted. Pending results of CT myelogram could consider surgical evaluation as [place] has requested. Dr. Jefferson had discussed hyaluronic acid with him and if he wishes to have this done at the [place] we certainly are able to do this for him. Follow up: Once arrangements are made for CT myelogram The has the following upcoming [facility] bookings and is on the following medications : 11/14/2024 09:30 [facility] DMD 4 12/26/2024 09:30 [facility] DENTAL DMD 4 02/28/2025 10:00 CWM/SO/PACT 10 04/12/2025 10:00 [facility] OPTOMETRY 1 PM MDM: 35 minutes Андрей Hussein PA-C Medication Reconciliation: Outpatient: Has the patient been taking medications as documented in the EMLR? YES: The patient has been taking medications as documented in the EMLR. Essential Medication List for Review used to complete this medication reconciliation. INCLUDED IN THIS LIST: Alphabetical list of active outpatient prescriptions dispensed from this [place] (local) and dispensed from another [place] or [facility] facility (remote) as well as inpatient [...] FACILITY ALLERGY/ADR -------- CLNCL/HLTH MADDY REPT EFF [id number] [facility] [place] [facility] MELOX[facility] [facility] [place] [facility] MUSHROOMS [facility] [place] [facility] PENICILLIN [facility] MELOXICAM [facility] MUSHROOMS [facility] PENICILLIN Med Recon NoGlossary (Tool #1) INCLUDED IN THIS LIST: Alphabetical list of active outpatient prescriptions dispensed from this [place] (local) and dispensed from another [place] or [facility] facility (remote) as well as inpatient orders (local pending and active), local clinic medications, locally documented non-VA medications, and local prescriptions that have or been discontinued in the past 90 days. Non-VA Meds Last Documented On: Data not found NOTE The display of VA prescriptions dispensed from another [place] or [facility] facility (remote) is limited to active outpatient prescription entries matched to National Drug File at the originating site and may not include some items such as investigational drugs, compounds, etc. NOT INCLUDED IN THIS LIST: Medications self-entered by the patient into personal health records (i.e. [facility]) are NOT included in this list. Non-VA [...] THREE TIMES DAILY NEEDED FOR PAIN Rx# [id number] Last Released: 05/30/24 Qty/Days Supply: 200/30 Rx Expiration Date: 03/25/25 Refills Remainin Indication: FOR PAIN OUTPT ALBUTEROL 90MCG (CFC-F) 200D ORAL INHL (Status = Active) INHALE 2 PUFFS BY MOUTH FOUR TIMES DAILY NEEDED FOR SHORTNESS OF BREATH Rx# [id number] Last Released: 09/06/24 Qty/Days Supply: Rx Expiration Date: 08/31/25 Refills Remainin OUTPT ATORVASTATIN CALCIUM 20MG TAB (Status = Discontinued) TAKE ONE TABLET BY MOUTH AT BEDTIME FOR HIGH CHOLESTEROL Rx# [id number] Last Released: 06/22/24 Qty/Days Supply: Rx Expiration Date: 06/22/25 Refills Remainin Indication: FOR HIGH CHOLESTEROL OUTPT ATORVASTATIN CALCIUM 40MG TAB (Status = Discontinued) TAKE ONE-HALF TABLET BY MOUTH AT BEDTIME FOR HIGH CHOLESTEROL Rx# [id number] Last Released: 06/01/24 Qty/Days Supply: Rx Expiration Date: 06/01/25 Refills Remainin Indication: FOR HIGH CHOLESTEROL OUTPT BUPRENORPHINE 300MCG BUCCAL FILM (Status = Active) PLACE ONE FILM BETWEEN CHEEK AND GUM UNTIL DISSOLVED TWICE DAILY FOR PAIN Rx# [id number] Last Released: 05/30/24 Qty/Days Supply: Rx Expiration Date: 09/24/24 Refills Remainin Indication: FOR PAIN OUTPT CLOMIPHENE CITRATE 50MG TAB (Status = Active) TAKE ONE-HALF TABLET BY MOUTH ONCE DAILY Rx# [id number] Last Released: 02/12/24 Qty/Days Supply: Rx Expiration Date: 11/03/24 Refills Remainin OUTPT LIDOCAINE 5% OINT (Status = ) APPLY THIN LAYER TOPICALLY TWICE DAILY TO THREE TIMES A DAY NEEDED FOR MINOR SKIN WOUND PAIN Rx# [id number] Last Released: 05/30/24 Qty/Days Supply: Rx Expiration Date: 08/14/24 Refills Remainin Indication: FOR MINOR SKIN WOUND PAIN OUTPT LOSARTAN 100MG TAB (Status = Active) TAKE ONE TABLET BY MOUTH ONCE DAILY FOR BLOOD PRESSURE/HEART Rx# [id number] Last Released: 07/19/24 Qty/Days Supply: Rx Expiration Date: 07/19/25 Refills Remainin OUTPT MONTELUKAST NA 10MG TAB (Status = Discontinued) TAKE ONE TABLET BY MOUTH AT BEDTIME FOR CONTROLLER MEDICATION FOR ASTHMA Rx# [id number] Last Released: 07/06/24 Qty/Days Supply: Rx Expiration Date: 10/29/24 Refills Remainin Indication: FOR CONTROLLER MEDICATION FOR ASTHMA OUTPT MONTELUKAST NA 10MG TAB (Status = Active/Suspended) TAKE ONE TABLET BY MOUTH AT BEDTIME FOR CONTROLLER MEDICATION FOR ASTHMA Rx# [id number] Last Released: Qt/Days Supply: Rx Expiration Date: 08/31/25 Refills Remainin Indication: FOR CONTROLLER MEDICATION FOR ASTHMA OUTPT NAPROXEN 500MG TAB (Status = Active) TAKE ONE TABLET BY MOUTH TWICE DAILY TAKE WITH FOOD Rx# [id number] Last Released: 05/30/24 Qty/Days Supply: Rx Expiration Date: 03/02/25 Refills Remainin Indication: FOR INFLAMMATION OUTPT OXYCODONE HCL 5MG TAB NOT SA (Status = ) TAKE ONE TABLET BY MOUTH EVERY 12 HOURS NEEDED FOR PAIN Rx# [id number] Last Released: 07/04/24 Qty/Days Supply: 24/03 Rx Expiration Date: 08/03/24 Refills Remainin OUTPT ROSUVASTATIN CA 40MG TAB (Status = Discontinued) TAKE ONE-HALF TABLET BY MOUTH AT BEDTIME FOR CHOLESTEROL Rx# [id number] Last Released: 07/21/24 Qty/ Supply: Rx Expiration Date: 07/21/25 Refills Remainin Indication: FOR HIGH CHOLESTEROL OUTPT ROSUVASTATIN CA 40MG TAB (Status = Active/Suspended) TAKE ONE-HALF TABLET BY MOUTH AT BEDTIME FOR CHOLESTEROL Rx# [id number] Last Released: Supply: Rx Expiration Date: 09/10/25 Refills Remainin Indication: FOR HIGH CHOLESTEROL SUPPLIES OUTPT TABLET CUTTER (PILL SPLITTER) (Status = Active) USE CUTTER DIRECTED ONCE DAILY TO SPLIT TABLETS Rx# [id number] Last Released: 06/21/24 Qty/Days Supply: Rx Expiration Date: 09/19/24 Refills Remainin /dheeraj/ АНДРЕЙ HUSSEIN [facility] Signed: 09/14/2024 14:35 АНДРЕЙ HUSSEIN [facility]
--- OUTSIDE RECORDS SUMMARY | 2024-10-25 11:07 | XMS_ITS | Encounter Summary ---
Author Name [facility] [place] Organization [facility] [place] Address [address] [place] [address] Care Team Providers Care Lap Winding Machine Operator Name Role Phone EHSAN OVALLES [...] Relationship to Policy [place] MEDICARE (WNR) MEDICARE () PART A December 08, 2013 PART A [id number] 62A BRIGID RAMOS K PATIENT MEDICARE (WNR) MEDICARE (M) PART A December 08, 2013 PART A [id number] BRIGID RAMOS K PATIENT MEDICARE (WNR) MEDICARE (M) PART A December 08, 2013 PART A [id number] 62A KARLY RAMOSRIC K PATIENT MEDICARE (WNR) MEDICARE (M) PART A December 08, 2013 PART A [id number] BRIGID RAMOS K PATIENT Selected Encounter This section includes the information on record at [place] for the Encounter. Date/Time Encounter Type Encounter Description Reason Provider Source Mar 21, 2024 10:00 AM COMPRE OPH EXAM EST PT 1/> OPTOMETRY ICD-10-CM Z87.820 Personal history of traumatic brain injury RENNY ARRIAGA IHE Encounter Template Text not used by [place] Assessments - Encounter Diagnoses This section includes the primary and secondary diagnoses documented for the Encounter. Date/Time Primary/Secondary Diagnosis Diagnosis Name Provider Source Mar 21, 2024 11:50 AM PRIMARY Personal history of traumatic brain injury RENNY ARRIAGA [place] [facility] [place] [facility] Mar 21, 2024 11:50 AM SECONDARY Glare sensitivity MONICOPARVEENRENNY [place] [facility] [place] [facility] Mar 21, 2024 11:50 AM SECONDARY Regular astigmatism, bilateral RENNY ARRIAGA Yuko [place] [facility] [place] [facility] Plan of Treatment: Future Appointments (+ 6 months) and Future Tests (+/- 45 days) The Plan of Treatment section includes future care activities for the patient from all [facility]. This section includes future appointments and future orders which are active, pending or scheduled. Future Appointments This section includes appointments that were scheduled to occur 6 months from the date of the Encounter, up to a maximum of 20 appointments. The data comes from all [place] treatment facilities. Appointment Date/Time Appointment Type Appointme nt Facility Name Mar 24, 2024 01:00 PM AMBULATORY - MEDICINE [facility] [place] [facility] Apr 06, 2024 10:00 AM AMBULATORY - MEDICINE [facility] [place] [facility] May 24, 2024 12:00 PM AMBULATORY - NONE [facility] [place] [facility] May 31, 2024 11:30 AM AMBULATORY - MEDICINE [facility] [place] [facility] Jun 03, 2024 09:50 AM AMBULATORY - MEDICINE [facility] [place] [facility] Jun 07, 2024 11:30 AM AMBULATORY - NONE [facility] [place] [facility] Jul 05, 2024 01:30 PM AMBULATORY - MEDICINE [facility] [place] [facility] Jul 27, 2024 02:30 PM AMBULATORY - REHAB MEDICIN E [facility] [place] [facility] Aug 30, 2024 11:00 AM AMBULATORY - MEDICINE [facility] [place] [facility] Sep 14, 2024 01:00 PM AMBULATORY - REHAB MEDICIN E [facility] [place] [facility] Social History: Smoking Status (Most [...] 12, 2023 10:46 AM VA-TOBACCO NEVER USED [facility] Tobacco Use History This section includes a history of the smoking, or tobacco-related health factors, that were collected on or before the date of the Encounter. The data comes from the [place] facility where the Encounter took place. Date/Time Smoking Status/Tobacco Use Comment Trisha [email or web address] Oct 20, 2015 10:30 AM LIFETIME NON-TOBACCO USER [facility] Sep 19, 2009 11:13 AM LIFETIME NON-TOBACCO USER [facility] Advance Directives: All historical and [...] 2018 ADVANCE DIRECTIVE [facility] Encounter Notes: All associated encounter notes [...] Gout 14. Traumatic brain injury (SNOMED CT [id number]) 15. 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 (+)LOC [...] Signed: 03/21/2024 14:26 /dheeraj/ RENNY ARRIAGA OD Otorhinolaryngologist Cosigned: 03/21/2024 14:55 03/21/2024 ADDENDUM STATUS: COMPLETED The optometry internal grinder participated in this exam, I saw this [...] FACILITY ALLERGY/ADR -------- CLNCL/HLTH MADDY REPT EFF [id number] [facility] [facility] [place] [facility] [place] [facility] [place] [facility] [facility] [facility] [place] [facility] Med Recon NoGlossary (Tool #1) INCLUDED IN THIS LIST: Alphabetical list of active outpatient prescriptions dispensed from this VA (local) and dispensed from another DC or DoD facility (remote) as well as [...] the patient into personal health records (i.e. [employer]) are NOT included in this list. Non-VA medications documented outside this DC, remote inpatient orders (regardless of status) and remote clinic medications are NOT included in this list. The patient and provider must always discuss medications the patient is taking, regardless of where the medication was dispensed or obtained. OUTPT ACETAMINOPHEN 500MG TAB (Status = ) TAKE TWO TABLETS BY MOUTH THREE TIMES DAILY NEEDED FOR PAIN Rx# [id number] Last Released: 02/15/24 Qty/Days Supply: 20030 Rx Expiration Date: 03/11/24 Refills Remainin Indication: FOR PAIN OUTPT ALBUTEROL 90MCG (CFC-F) 200D ORAL INHL (Status = Active) INHALE 2 PUFFS BY MOUTH FOUR TIMES DAILY NEEDED FOR SHORTNESS OF BREATH Rx# [id number] Last Released: 03/08/24 Qty/Days Supply: Rx Expiration Date: 05/12/24 Refills Remainin OUTPT BUPRENORPHINE 150MCG BUCCAL FILM (Status = Active) PLACE ONE FILM BETWEEN CHEEK AND GUM UNTIL DISSOLVED THREE TIMES A DAY FOR PAIN Rx# [id number] Last Released: 02/13/24 Qty/Days Supply: 90 Rx Expiration Date: 06/24/24 Refills Remainin Indication: FOR PAIN OUTPT CHOLECALCIF 50MCG (D3-2,000UNIT) TAB (Status = Active) TAKE TWO TABLETS BY MOUTH EVERY DAY FOR VITAMIN SUPPLEMENTATION Rx# [id number] Last Released: 03/08/24 Qty/Days Supply: 200/90 Rx Expiration Date: 05/12/24 Refills Remainin OUTPT CLOMIPHENE CITRATE 50MG TAB (Status = Active) TAKE ONE-HALF TABLET BY MOUTH ONCE DAILY Rx# [id number] Last Released: 02/12/24 Qty/Days Supply: Rx Expiration Date: 11/03/24 Refills Remainin OUTPT DICLOFENAC NA 1% TOP GEL (Status = ) APPLY 4 GRAMS TOPICALLY FOUR TIMES A DAY FOR OSTEOARTHRITIS - USE DOSING CARD PROVIDED IN BOX Rx# [id number] Last Released: 03/11/23 Qty/Days Supply: 300/30 Rx Expiration Date: 03/11/24 Refills Remainin Indication: FOR JOINT PAIN OUTPT FLUTICAS 500/SALMETEROL 50 INHL DISK 60 (Status = Active) INHALE 1 PUFF BY MOUTH TWICE DAILY - RINSE MOUTH AFTER USE Rx# [id number] Last Released: 03/08/24 Qty/Days Supply: Rx Expiration Date: 05/12/24 Refills Remainin OUTPT LIDOCAINE 5% OINT (Status = Active) APPLY THIN LAYER TOPICALLY TWICE DAILY TO THREE TIMES A DAY NEEDED FOR MINOR SKIN WOUND PAIN Rx# [id number] Last Released: 02/15/24 Qty/Days Supply: Rx Expiration Date: 08/14/24 Refills Remainin Indication: FOR MINOR SKIN WOUND PAIN OUTPT LOSARTAN 100MG TAB (Status = Active) TAKE ONE TABLET BY MOUTH ONCE DAILY FOR BLOOD PRESSURE/HEART Rx# [id number] Last Released: 02/26/24 Qty/Days Supply: Rx Expiration Date: 05/12/24 Refills Remainin OUTPT MONTELUKAST NA 10MG TAB (Status = Active/Suspended) TAKE ONE TABLET BY MOUTH AT BEDTIME FOR CONTROLLER MEDICATION FOR ASTHMA Rx# [id number] Last Released: 01/09/24 Qty/Days Supply: Rx Expiration Date: 10/29/24 Refills Remainin Indication: FOR CONTROLLER MEDICATION FOR ASTHMA OUTPT NAPROXEN 500MG TAB (Status = Discontinued) TAKE ONE TABLET BY MOUTH TWICE DAILY TAKE WITH FOOD Rx# [id number] Last Released: 12/23/23 Qty/Days Supply: 60 Rx Expiration Date: 11/05/24 Refills Remainin Indication: FOR INFLAMMATION OUTPT NAPROXEN 500MG TAB (Status = Active) TAKE ONE TABLET BY MOUTH TWICE DAILY TAKE WITH FOOD Rx# [id number] Last Released: 03/02/24 Qty/Days Supply: 60 Rx Expiration Date: 03/02/25 Refills Remainin Indication: FOR INFLAMMATION OUTPT OMEPRAZOLE 20MG EC CAP (Status = Active) TAKE ONE CAPSULE BY MOUTH TWICE DAILY Rx# [id number] Last Released: 03/08/24 Qty/Days Supply: 180/ Rx Expiration Date: 05/12/24 Refills Remainin OUTPT PREGABALIN 100MG ORAL CAP (Status = Active) TAKE ONE CAPSULE BY MOUTH TWICE DAILY FOR PAIN Rx# [id number] Last Released: 02/12/24 Qty/Days Supply: 6030 Rx Expiration Date: 05/26/24 Refills Remainin Indication: FOR PAIN OUTPT TESTOSTERONE CYP 200MG/ML 1ML IN OIL (Status = Active) INJECT 0.5ML (100MG) INTRAMUSCULARLY ONCE A WEEK VIALS ARE ONLY TO BE USED ONE TIME Rx# [id number] Last Released: 10/19/23 Qty/Days Supply: 12/05 Rx Expiration Date: 04/16/24 Refills Remainin SUPPLIES /dheeraj/ RENNY ARRIAGA OD Otorhinolaryngologist Signed: 03/21/2024 14:55 [facility]
--- OUTSIDE RECORDS SUMMARY | 2024-10-25 11:07 | XMS_ITS ---
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 Date/Time Encounter Type Encounter Description Reason Provider Source Mar 24, 2024 01:00 PM OFFICE O/P EST MOD 30 MIN PAIN CLINIC ICD-10-CM M25.562 Pain in left knee BENJA TIPTON E Encounter Template Text not used by [place] Assessments - Encounter Diagnoses This section includes the primary and secondary diagnoses documented for the Encounter. Date/Time Primary/Secondary Diagnosis Diagnosis Name Provider Source Mar 24, 2024 01:41 PM PRIMARY Pain in left knee BENJA TIPTON [place] [facility] [place] [facility] Mar 24, 2024 01:41 PM SECONDARY Low back pain, unspecified CUTBENJA ESCOBEDO [place] [facility] [place] [facility] Mar 24, 2024 01:41 PM SECONDARY Post-traumatic stress disorder, chronic CUTBENJA ESCOBEDO [place] [facility] [place] [facility] Plan of Treatment: Future Appointments (+ 6 months) and Future Tests (+/- 45 days) The Plan of Treatment section includes future care activities for the patient from all [place] [facility]. This section includes future appointments [...] - MEDICINE [place] [facility] [place] [facility] May 24, 2024 12:00 PM AMBULATORY - NONE [facility] [place] [facility] May 31, 2024 11:30 AM AMBULATORY - MEDICINE [facility] [place] [facility] Jun 03, 2024 09:50 AM AMBULATORY - MEDICINE [place] [facility] [place] [facility] Jun 07, 2024 11:30 AM AMBULATORY - NONE [facility] [place] [facility] Jul 05, 2024 01:30 PM AMBULATORY - MEDICINE [facility] [place] [facility] Jul 27, 2024 02:30 PM AMBULATORY - REHAB MEDICIN E [facility] [place] [facility] Aug 30, 2024 11:00 AM AMBULATORY - MEDICINE [place] [facility] [place] [facility] Sep 14, 2024 01:00 PM AMBULATORY - REHAB MEDICIN E [place] [facility] [place] [facility] Social History: Smoking Status (Most [...] 12, 2023 10:46 AM VA-TOBACCO NEVER USED [facility] Tobacco Use History This section includes a history of the smoking, or tobacco-related health factors, that were collected on or before the date of the Encounter. The data comes from the [place] facility where the Encounter took place. Date/Time Smoking Status/Tobacco Use Comment F acility Oct 20, 2015 10:30 AM LIFETIME NON-TOBACCO USER [facility] Sep 19, 2009 11:13 AM LIFETIME NON-TOBACCO USER [facility] Advance Directives: All historical and current [...] standard clinical care, and in accordance with [facility] policy. Patient information was shared with the PDMP [place]. No prescription(s) for controlled substances outside the VA were found in the last 90 days. /dhereaj/ Benja Tipton MD STAFF PHYSICIAN Signed: 03/24/2024 13:42 BENJA TIPTON [place] [facility] [place] [facility] Mar 24, 2024 12:55 PM PAIN MEDICINE OUTPATIENT NOTE: LOCAL TITLE: PAIN CLINIC NOTE STANDARD TITLE: PAIN MEDICINE OUTPATIENT NOTE DATE OF NOTE: MAR 24, 2024@12:55 ENTRY DATE: MAR 24, 2024@12:55:22 AUTHOR: BENJA TIPTON EXP COSIGNER: URGENCY: STATUS: COMPLETED Presents for [facility] follow up visit. 4 weeks ago he was seen in physiatry and physical exam was apparently suggestive of left knee meniscal injury. He believes he cannot have MRI because of severe sleep apnea when he lies flat. He was referred to [facility], has not been contacted for appt. [...] supply from old rx's. Appears comfortable by [facility]. 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 Lumbar CT scan in Mar 2023 ([facility]) showed neuroforaminal stensoses L3-S1. He eventually [...] He was given the phone # for [facility] to schedule appointment. 3. Continue other meds. 4. f/u 3 months, sooner if needed. /dheeraj/ Benja Tipton MD STAFF PHYSICIAN Signed: 03/24/2024 13:41 BENJA TIPTON [facility]
--- OUTSIDE RECORDS SUMMARY | 2024-10-25 11:07 | XMS_ITS ---
Author Name [facility] [place] Organization [place] Address [address] [place] [address] Care Team Providers Care Circular Tank Cooper Name Role Phone EHSAN OVALLES Primary Care [...] PART A December 08, 2013 PART A [id number] 62A BRIGID RAMOS PATIENT MEDICARE (WNR) MEDICARE (M) PART A December 08, 2013 PART A [id number] [id number] BRIGID RAMOS PATIENT MEDICARE (WNR) MEDICARE (M) PART A December 08, 2013 PART A [id number] 62A BRIGID RAMOS PATIENT MEDICARE (WNR) MEDICARE (M) PART A December 08, 2013 PART A [id number] [id number] BRIGID RAMOS PATIENT Selected Encounter This section includes the information on record at [place] for the Encounter. Date/Time Encounter Type Encounter Description Reason Provider Source Nov 24, 2023 09:30 AM OFFICE O/P EST MOD 30 MIN PAIN CLINIC ICD-10-CM M54.50 Low back pain, unspecified CUTLER,BENJA S E Encounter Template Text not used by [place] Assessments - Encounter Diagnoses This section includes the primary and secondary diagnoses documented for the Encounter. Date/Time Primary/Secondary Diagnosis Diagnosis Name Provider Source Nov 24, 2023 04:10 PM PRIMARY Low back pain, unspecified BENJA TIPTON [place] [facility] [place] [facility] Nov 24, 2023 04:10 PM SECONDARY Pain in left knee BENJA TIPTON [place] [facility] [place] [facility] Nov 24, 2023 04:10 PM SECONDARY Post-traumatic stress disorder, chronic CUTBENJA ESCOBEDO [place] [facility] [place] [facility] Plan of Treatment: Future Appointments (+ 6 months) and Future Tests (+/- 45 days) The Plan of Treatment section includes future care activities for the patient from all [place] [facility]. This section includes future appointments [...] 10:30 AM AMBULATORY - REHAB MEDICIN E [place] Dec 01, 2023 09:45 AM AMBULATORY - MEDICINE [place] [facility] [place] [facility] Dec 01, 2023 03:30 PM AMBULATORY - REHAB MEDICIN [facility] Dec 08, 2023 09:00 AM AMBULATORY - REHAB MEDICIN E [place] January 05, 2024 01:00 PM AMBULATORY - REHAB MEDICIN E [place] [facility] [place] [facility] Jan 15, 2024 09:30 AM AMBULATORY - REHAB MEDICIN E [place] Feb 23, 2024 09:00 AM AMBULATORY - MEDICINE [place] [facility] [place] [facility] Feb 25, 2024 01:00 PM AMBULATORY - REHAB MEDICIN E [place] [facility] [place] [facility] Mar 21, 2024 10:00 AM AMBULATORY - MEDICINE [place] [facility] [place] [facility] Mar 24, 2024 01:00 PM AMBULATORY - MEDICINE [place] [facility] [place] [facility] Apr 06, 2024 10:00 AM AMBULATORY - MEDICINE [place] [facility] [place] [facility] May 24, 2024 12:00 PM AMBULATORY - NONE [facility] Lab Results: +/- 30 days [...] Range Comment Nov 09, 2023 08:51 AM [facility] LIPID PANEL FASTING Specimen Type: SERUM No comment entered. Ordering Provider: EHSAN OVALLES Report Released Date/Time: May 12, 2023 10:46 AM Reporting Lab: [address] [address] Performing Lab: [address] [address] CHOLESTEROL 286 mg/dL H TRIGLYCERIDE 111 mg/dL 0-150 LDL calculated 226 mg/dL H 0-129 CHOL/HDL 7.5 HDL CHOLESTEROL 38 mg/dL L 40-60 Nov 09, 2023 08:51 AM [facility] LIVER FUNCTION Specimen Type: SERUM No comment entered. Ordering Provider: EHSAN OVALLES Report Released Date/Time: May 12, 2023 10:46 AM Reporting Lab: [address] [address] Performing Lab: [address] [address] PROTEIN,TOTAL 7.2 g/dL 6.0-8.3 ALBUMIN 4.0 g/dL 3.5-5.0 ALKALINE PHOSPHATASE 68 U/L 40-150 AST 21 U/L 5-34 ALT 40 U/L BILIRUBIN, TOTAL 0.6 mg/dL 0.2-1.2 Nov 09, 2023 08:51 AM [facility] BASIC METABOLIC PANEL (fasting) Specimen Type: SERUM No comment entered. Ordering Provider: EHSAN OVALLES Report Released Date/Time: May 12, 2023 10:46 AM Reporting Lab: [address] [place] [address] Performing Lab: [facility] [address] [facility] [address] UREA NITROGEN 25 mg/dL 7-25 GLUCOSE 97 [...] 12, 2023 10:46 AM VA-TOBACCO NEVER USED [facility] Tobacco Use [...] Mar 22, 2018 ADVANCE DIRECTIVE [facility] Encounter Notes: All associated encounter notes [...] Has ADDENDA Presents for follow up by [facility]. Nerve pain is gone after injection. [...] Appears comfortable and in good spirits by [facility]. 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 Lumbar CT scan in Mar 2023 ([facility]) showed neuroforaminal stensoses L3-S1. It seemed likely [...] 3. 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 4. Will discontinue buprenorphine and oxycodone for now as they are no longer needed. 5. f/u 4 months. /dheeraj/ Benja Tipton MD STAFF PHYSICIAN Signed: 11/24/2023 16:10 11/24/2023 ADDENDUM STATUS: UNSIGNED You may not VIEW this UNSIGNED Addendum. BENJA TIPTON [place] [facility]
--- OUTSIDE RECORDS SUMMARY | 2024-10-25 11:07 | XMS_ITS | Encounter Summary ---
Author Name [facility] [place] [facility] [place] Address [address] [place] [address] Care Team Providers Care Forest Logistics Manager Name Role Phone EHSAN OVALLES Primary [...] PART A December 08, 2013 PART A [id number] [id number] BRIGID RAMOS PATIENT MEDICARE (WNR) MEDICARE (M) PART A December 08, 2013 PART A [id number] [phone] [id number] BRIGID RAMOS PATIENT MEDICARE (WNR) MEDICARE (M) PART A December 08, 2013 PART A [id number] 62A BRIGID RAMOS PATIENT MEDICARE (WNR) MEDICARE (M) PART A December 08, 2013 PART A [id number] [phone] [id number] BRIGID RAMOS PATIENT Selected Encounter This section includes the information on record at [place] for the Encounter. Date/Time Encounter Type Encounter Description Reason Provider Source Nov 11, 2023 10:00 AM OFFICE O/P EST LOW 20 MIN PRIMARY CARE/MEDICINE ICD-10-CM I10 Essential (primary) hypertension EHSAN OVALLES Encounter Template Text not used by [place] Assessments - Encounter Diagnoses This section includes the primary and secondary diagnoses documented for the Encounter. Date/Time Primary/Secondary Diagnosis Diagnosis Name Provider Source Nov 11, 2023 10:10 AM PRIMARY Essential (primary) hypertension MARILYN VALLECILLO [place] Nov 11, 2023 10:10 AM SECONDARY Hyperlipidemia, unspecified MARILYN VALLECILLO [place] Nov 11, 2023 10:10 AM SECONDARY Other obesity MARILYN VALLECILLO Christie Lamont [place] Plan of Treatment: Future Appointments (+ 6 months) and Future Tests (+/- 45 days) The Plan of Treatment section includes future care activities for the patient [facility] [place] [facility] This section includes future appointments and [...] 24, 2023 09:30 AM AMBULATORY - MEDICINE [facility] [place] [facility] Nov 26, 2023 10:30 AM AMBULATORY - REHAB MEDICIN E [place] Dec 01, 2023 09:45 AM AMBULATORY - MEDICINE [facility] [place] [facility] Dec 01, 2023 03:30 PM AMBULATORY - REHAB MEDICIN E [place] Dec 08, 2023 09:00 AM AMBULATORY - REHAB MEDICIN E [place] January 05, 2024 01:00 PM AMBULATORY - REHAB MEDICIN E [place] [facility] Jan 15, 2024 09:30 AM AMBULATORY - REHAB MEDICIN E [place] Feb 23, 2024 09:00 AM AMBULATORY - MEDICINE [place] [facility] Feb 25, 2024 01:00 PM AMBULATORY - REHAB MEDICIN E [place] [place] [facility] Mar 21, 2024 10:00 AM AMBULATORY - MEDICINE [place] [facility] Mar 24, 2024 01:00 PM AMBULATORY - MEDICINE [place] [facility] Apr 06, 2024 10:00 AM [facility] Lab Results: +/- 30 days of [...] Range Comment Nov 09, 2023 08:51 AM [facility] LIPID PANEL FASTING Specimen Type: SERUM No comment entered. Ordering Provider: EHSAN OVALLES Report Released Date/Time: May 12, 2023 10:46 AM [facility] [address] Performing [facility]: [facility] [address] CHOLESTEROL 286 mg/dL H TRIGLYCERIDE 111 mg/dL 0-150 LDL calculated 226 mg/dL H 0-129 CHOL/HDL 7.5 HDL CHOLESTEROL 38 mg/dL L 40-60 Nov 09, 2023 08:51 AM [facility] LIVER FUNCTION Specimen Type: SERUM No comment entered. Ordering Provider: EHSAN OVALLES Report Released Date/Time: May 12, 2023 10:46 AM Reporting [facility] [address] Performing Lab: [address] [address] PROTEIN,TOTAL 7.2 g/dL 6.0-8.3 ALBUMIN 4.0 g/dL 3.5-5.0 ALKALINE PHOSPHATASE 68 U/L 40-150 AST 21 U/L 5-34 ALT 40 U/L BILIRUBIN, TOTAL 0.6 mg/dL 0.2-1.2 Nov 09, 2023 08:51 AM [facility] BASIC METABOLIC PANEL (fasting) Specimen Type: SERUM No comment entered. Ordering Provider: EHSAN OVALLES Report Released Date/Time: May 12, 2023 10:46 AM Reporting [facility] [address] Performing [facility]: [facility] [address] UREA NITROGEN 25 mg/dL 7-25 GLUCOSE 97 [...] Facil ity May 26, 2022 10:00 AM [place]-TOBACCO NEVER USED [place] Tobacco Use History This section includes a history of the smoking, or tobacco-related health factors, that were collected on or before the date of the Encounter. The data comes from the [place] facility where the Encounter took place. Date/Time Smoking Status/Tobacco Use Comment F acility May 21, 2021 03:00 PM [place]-TOBACCO NEVER USED [place] Aug 08, 2019 11:05 AM [place]-TOBACCO NEVER USED [place] Jun 28, 2018 03:14 PM [place]-TOBACCO NEVER USED [place] May 28, 2017 08:56 AM LIFETIME NON-TOBACCO USER [place] Advance Directives: All historical and current Section [...] Mar 22, 2018 ADVANCE DIRECTIVE JASWANT DICKINSON [place] Val [facility] Encounter Notes: All associated encounter [...] an Advance Directive on file at this [facility]. No updates are needed at this time. [...] full rights to use it throughout the [place] system. PRIMARY SCREEN RESULT: The Primary Screen [...] observed or identified. 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 INDICATED: [...] prior ========= UPCOMING APPOINTMENTS: 11/24/2023 09:30 CWM/NO/VVC/PAIN MD 1 11/26/2023 10:30 CWM/SO/PHYSICAL THERAPY B 01/05/2024 [...] this [facility] (local) and dispensed from another [place] or DoD facility (remote) as well as [...] FACILITY ALLERGY/ADR -------- CLNCL/HLTH MADDY REPT EFF [id number] [facility] [place] [facility] [place] [facility] [place] [facility] [place] [facility] [place] [facility] [place] [facility] [place] Med Recon NoGlossary (Tool #1) INCLUDED IN THIS LIST: Alphabetical list of active outpatient prescriptions dispensed from this [place] (local) and dispensed from another [place] or [facility] facility (remote) as well as inpatient orders [...] the patient into personal health records (i.e. [employer] are NOT included in this list. Non-VA medications documented outside this [place], remote inpatient orders (regardless of status) and remote clinic medications are NOT included in this list. The patient and provider must always discuss medications the patient is taking, regardless of where the medication was dispensed or obtained. ------ OUTPT ACETAMINOPHEN 500MG TAB (Status = Active) TAKE TWO TABLETS BY MOUTH THREE TIMES DAILY NEEDED FOR PAIN Rx# [id number] Last Released: 08/18/23 Qty/Days Supply: 200/30 Rx Expiration Date: 03/11/24 Refills Remainin Indication: FOR PAIN OUTPT ALBUTEROL 90MCG (CFC-F) 200D ORAL INHL (Status = Active) INHALE 2 PUFFS BY MOUTH FOUR TIMES DAILY NEEDED FOR SHORTNESS OF BREATH Rx# [id number] Last Released: 05/19/23 Qty/Days Supply: Rx Expiration Date: 05/12/24 Refills Remainin OUTPT BUPRENORPHINE 20MCG/HR PATCH (Status = Discontinued) APPLY 1 PATCH TO SKIN EVERY 7 DAYS (REMOVE PATCH BEFORE APPLYING A NEW PATCH) NOTE NEW PATCH STRENGTH Rx# [id number] Last Released: 07/28/23 Qty/Days Supply: 12/05 Rx Expiration Date: 01/28/24 Refills Remainin Indication: FOR PAIN OUTPT BUPRENORPHINE 300MCG BUCCAL FILM (Status = Active) PLACE ONE FILM BETWEEN CHEEK AND GUM UNTIL DISSOLVED EVERY 12 HOURS FOR PAIN Rx# [id number] Last Released: 10/13/23 Qty/Days Supply: 6030 Rx Expiration Date: 03/10/24 Refills Remainin Indication: FOR PAIN OUTPT CHOLECALCIF 50MCG (D3-2,000UNIT) TAB (Status = Active) TAKE TWO TABLETS BY MOUTH EVERY DAY FOR VITAMIN SUPPLEMENTATION Rx# [id number] Last Released: 08/05/23 Qty/Days Supply: 20090 Rx Expiration Date: 05/12/24 Refills Remainin OUTPT CLOMIPHENE CITRATE 50MG TAB (Status = ) TAKE ONE-HALF TABLET BY MOUTH ONCE DAILY Rx# [id number] Last Released: 07/03/23 Qty/Days Supply: Rx Expiration Date: 09/28/23 Refills Remainin OUTPT CLOMIPHENE CITRATE 50MG TAB (Status = Active) TAKE ONE-HALF TABLET BY MOUTH ONCE DAILY Rx# [id number] Last Released: 11/04/23 Qty/Days Supply: Rx Expiration Date: 11/03/24 Refills Remainin OUTPT DICLOFENAC NA 1% TOP GEL (Status = Active) APPLY 4 GRAMS TOPICALLY FOUR TIMES A DAY FOR OSTEOARTHRITIS - USE DOSING CARD PROVIDED IN BOX Rx# [id number] Last Released: 03/11/23 Qty/Days Supply: 300/30 Rx Expiration Date: 03/11/24 Refills Remainin Indication: FOR JOINT PAIN OUTPT FLUTICAS 500/SALMETEROL 50 INHL DISK 60 (Status = Active) INHALE 1 PUFF BY MOUTH TWICE DAILY - RINSE MOUTH AFTER USE Rx# [id number] Last Released: 07/16/23 Qty/Days Supply: 3 Rx Expiration Date: 05/12/24 Refills Remainin OUTPT LIDOCAINE 5% OINT (Status = Active) APPLY THIN LAYER TOPICALLY TWICE DAILY TO THREE TIMES A DAY NEEDED FOR MINOR SKIN WOUND PAIN Rx# [id number] Last Released: 08/18/23 Qty/Days Supply: 105/30 Rx Expiration Date: 08/14/24 Refills Remainin Indication: FOR MINOR SKIN WOUND PAIN OUTPT LOSARTAN 100MG TAB (Status = Active) TAKE ONE TABLET BY MOUTH ONCE DAILY FOR BLOOD PRESSURE/HEART Rx# [id number] Last Released: 09/28/23 Qty/Days Supply: 90 Rx Expiration Date: 05/12/24 Refills Remainin OUTPT MONTELUKAST NA 10MG TAB (Status = Active) TAKE ONE TABLET BY MOUTH AT BEDTIME FOR CONTROLLER MEDICATION FOR ASTHMA Rx# [id number] Last Released: 10/30/23 Qty/Days Supply: 90 Rx Expiration Date: 10/29/24 Refills Remainin Indication: FOR CONTROLLER MEDICATION FOR ASTHMA OUTPT NAPROXEN 500MG TAB (Status = Discontinued) TAKE ONE TABLET BY MOUTH TWICE DAILY TAKE WITH FOOD Rx# [id number] Last Released: 07/28/23 Qty/Days Supply: 6030 Rx Expiration Date: 08/27/23 Refills Remainin Indication: FOR INFLAMMATION OUTPT NAPROXEN 500MG TAB (Status = Discontinued) TAKE ONE TABLET BY MOUTH TWICE DAILY TAKE WITH FOOD Rx# [id number] Last Released: 10/10/23 Qty/Days Supply: 60/30 Rx Expiration Date: 08/13/24 Refills Remainin Indication: FOR INFLAMMATION OUTPT NAPROXEN 500MG TAB (Status = Active) TAKE ONE TABLET BY MOUTH TWICE DAILY TAKE WITH FOOD Rx# [id number] Last Released: 11/05/23 Qty/Days Supply: 60 Rx Expiration Date: 11/05/24 Refills Remainin Indication: FOR INFLAMMATION OUTPT OMEPRAZOLE 20MG EC CAP (Status = Active) TAKE ONE CAPSULE BY MOUTH TWICE DAILY Rx# [id number] Last Released: 07/16/23 Qty/Days Supply: 180/ Rx Expiration Date: 05/12/24 Refills Remainin OUTPT OXYCODONE HCL 5MG TAB NOT SA (Status = Discontinued) TAKE TWO TABLETS BY MOUTH TWICE DAILY NEEDED Rx# [id number] Last Released: 07/28/23 Qty/Days Supply: 06/03 Rx Expiration Date: 08/27/23 Refills Remainin Indication: FOR PAIN OUTPT OXYCODONE HCL 5MG TAB NOT SA (Status = Discontinued) TAKE TWO TABLETS BY MOUTH TWICE DAILY NEEDED FOR PAIN NOT FOR USE EVERY DAY (NEXT FILL 09/10/23) Rx# [id number] Last Released: 08/13/23 Qty/Days Supply: 30 Rx Expiration Date: 09/12/23 Refills Remainin Indication: FOR PAIN OUTPT OXYCODONE HCL 5MG TAB NOT SA (Status = ) TAKE TWO TABLETS BY MOUTH TWICE DAILY NEEDED FOR PAIN NOT FOR USE EVERY DAY (NEXT FILL 10/08/23) Rx# [id number] Last Released: 09/10/23 Qty/Days Supply: Rx Expiration Date: 10/08/23 Refills Remainin Indication: FOR PAIN OUTPT PRAZOSIN HCL 1MG CAP (Status = Active) TAKE THREE CAPSULES BY MOUTH AT BEDTIME TAKE DOSE AT 11 PM. Rx# [id number] Last Released: 12/08/22 Qty/Days Supply: 9030 Rx Expiration Date: 12/03/23 Refills Remainin Indication: OFF LABEL FOR NIGHTMARES OUTPT PREGABALIN 100MG ORAL CAP (Status = Discontinued) TAKE ONE CAPSULE BY MOUTH TWICE DAILY FOR PAIN Rx# [id number] Last Released: 09/10/23 Qty/Days Supply: 6030 Rx Expiration Date: 03/10/24 Refills Remainin Indication: FOR PAIN OUTPT PREGABALIN 50MG ORAL CAP (Status = Discontinued) TAKE ONE CAPSULE BY MOUTH TWICE DAILY FOR 3 DAYS, THEN TAKE TWO CAPSULES TWICE DAILY Rx# [id number] Last Released: 08/13/23 Qty/Days Supply: Rx Expiration Date: 09/12/23 Refills Remainin Indication: FOR NERVE PAIN OUTPT PREGABALIN 75MG ORAL CAP (Status = Active) TAKE ONE CAPSULE BY MOUTH TWICE DAILY FOR PAIN Rx# [id number] Last Released: 11/05/23 Qty/Days Supply: Rx Expiration Date: 05/07/24 Refills Remainin Indication: FOR PAIN OUTPT SILDENAFIL CITRATE 100MG TAB (Status = Active) TAKE ONE TABLET BY MOUTH ONCE DAILY NEEDED TAKE 1 HOUR PRIOR TO SEXUAL ACTIVITY Rx# [id number] Last Released: 04/17/23 Qty/Days Supply: 02/06 Rx Expiration Date: 11/14/23 Refills Remainin Indication: FOR ERECTILE DYSFUNCTION OUTPT TESTOSTERONE CYP 200MG/ML 1ML IN OIL (Status = Active) INJECT 0.5ML (100MG) INTRAMUSCULARLY ONCE A WEEK VIALS ARE ONLY TO BE USED ONE TIME Rx# [id number] Last Released: 10/19/23 Qty/Days Supply: 12/05 Rx Expiration Date: 04/16/24 Refills Remainin ------ SUPPLIES ------ Home Telehealth ([facility]) Referral: [facility]. HTN Assess for Elevated BP>=140/90: Repeat blood pressure: 137/87 /es/ EHSAN OVALLES MD Primary Care Physician Signed: 11/11/2023 10:58 EHSAN OVALLES [place]
--- OUTSIDE RECORDS SUMMARY | 2024-10-25 11:07 | XMS_ITS | Encounter Summary ---
Author Name [facility] [place] Address [address] [place] [address] Care Team Providers Care Oracle Endeca Consultant Name Role Phone EHSAN OVALLES Primary [...] PART A December 08, 2013 PART A [id number] [phone] BRIGID RAMOS PATIENT MEDICARE (WNR) MEDICARE (M) PART A December 08, 2013 PART A [id number] BRIGID RAMOS PATIENT MEDICARE (WNR) MEDICARE (M) PART A December 08, 2013 PART A [id number] [phone] [id number] BRIGID RAMOS PATIENT MEDICARE (WNR) MEDICARE (M) PART A December 08, 2013 PART A [id number] BRIGID RAMOS PATIENT Selected Encounter This section includes the information on record at [place] for the Encounter. Date/Time Encounter Type Encounter Description Reason Pro vider Source Oct 24, 2024 02:51 PM Outpatient Encounter PRIMARY CARE/MEDICINE IHE Encounter Template Text not used by [place] Plan of Treatment: Future Appointments (+ 6 months) and Future Tests (+/- 45 days) The Plan of Treatment section includes future care activities for the patient from all [place] [facility]. This section includes future appointments and future orders which are active, pending or scheduled. Future Appointments This section includes appointments that were scheduled to occur 6 months from the date of the Encounter, up to a maximum of 20 appointments. The data comes from all [place] treatment [facility]. Appointment Date/Time Appointment Type Appointme nt Facility Name Oct 25, 2024 10:00 AM AMBULATORY - MEDICINE [place] [facility] Nov 01, 2024 11:30 AM AMBULATORY - MEDICINE [place] [facility] Nov 14, 2024 09:30 AM AMBULATORY - NONE [place] [facility] December 26, 2024 09:30 AM AMBULATORY - NONE [place] [facility] Feb 28, 2025 10:00 AM AMBULATORY - MEDICINE [place] [facility] Apr 12, 2025 10:00 AM AM[facility]ULAT[facility] - [facility] Active, Pending, and Scheduled Orders This section includes a listing of several types of active, pending, and scheduled orders, including clinic medications orders, diagnostic test orders, procedure orders and consult orders; where the start date of the order is 45 days before the date of the Encounter or 45 days after the date of theEncounter. The data comes from all [facility]. Test Date/Time Test Type Test Details Facility Name Sep 25, 2024 11:32 AM Consult Order COMMUNITY CARE-RADIOLOGY XRAY Cons [facility] [place] [facility] Sep 27, 2024 09:40 AM Consult Order COMMUNITY CARE-COLONOSCOPY Cons [facility] [place] [facility] Oct 10, 2024 03:55 PM Consult Order COMMUNITY CARE-ORTHO SURGICAL [facility] [place] [facility] Social History: Smoking Status (Most current) and Tobacco Use (All prior to encounter date) This section includes the most current, and the historical, smoking and tobacco- related health factors from the [place] facility where the Encounter took place. Current Smoking Status This section includes the most current smoking, or tobacco-related health factor, from the [place] facility where the Encounter took place. Date/Time Current Smoking Status Comment Jose armstrong May 12, 2023 10:46 AM [place]-TOBACCO NEVER USED [facility] Tobacco Use History This section includes a history of the smoking, or tobacco-related health factors, that were collected on or before the date of the Encounter. The data comes from the [place] facility where the Encounter took place. Date/Time [...] ALL of a patient's completed or amended [place] Advance and Rescinded Directives. The entries below indicate that a directive exists for the patient, but an actual copy is not included with this document. The data comes from all [place] facilities. Date Advance Directives Provider Source Mar 22, 2018 ADVANCE DIRECTIVE JASWANT DICKINSON [facility] Encounter Notes: All associated encounter notes This section contains the clinical notes associated to the Encounter. Date/Time Encounter Note(s) Provider Source Oct 24, 2024 02:51 PM ADMINISTRATIVE NOT E: LOCAL TITLE: FAX/MAIL RECEIVED STANDARD TITLE: ADMINISTRATIVE NOTE DATE OF NOTE: OCT 24, 2024@14:51 ENTRY DATE: OCT 24, 2024@14:52:11 AUTHOR: VELIA FAUSTIN EXP COSIGNER: URGENCY: STATUS: COMPLETED Document Received On: Oct Document Type: Colonoscopy Date of Service: Oct Facility and or Provider: [facility] Contact Information: PCP of Record: EHSAN OVALLES Next visit with PCP: 10/25/2024 10:00 COM CARE-ORTHO SURGICAL 11/01/2024 11:30 COM CARE-DENTAL GENERAL 11/14/2024 09:30 [facility] DENTAL DMD 4 12/26/2024 09:30 [facility] DENTAL DMD 4 02/28/2025 10:00 SPR PACT 10 04/12/2025 10:00 [facility] OPTOMETRY 1 PM Primary Care May keep copies of this document for up to 14 days and send the original for scanning. Paper in provider mailbox. /dheeraj/ VELIA FAUSTIN [facility] Signed: 10/24/2024 14:53 VELIA FAUSTIN
== END 2024-10-25 10:30 | disposition home or self-care (01) ==
LOC: HO.HOS 09:53
PROVIDERS: PCP Family Medicine; Visit Provider Orthopaedic Surgery
DX: M17.12 Unilateral primary osteoarthritis, left knee (principal)
CPT/HCPCS: 20610; 99213

== ENCOUNTER → 2024-10-25 09:53 | Outpatient (BNVA) | payer OTHER, SELFPAY | PROVIDERS: PCP Family Medicine; Visit Provider Orthopaedic Surgery | DX: M17.12 Unilateral primary osteoarthritis, left knee (principal) | CPT/HCPCS: 20610; 99212; J2003; J7323 ==

== ENCOUNTER 2024-11-01 08:54 | Outpatient (AMB) | payer OTHER, SELFPAY ==
[2024-11-01 09:08] VITALS: BMI 43.5
--- NOTE | 2024-11-01 09:08 | MHC.OFFVIS ---
Vital Signs 11/01/24 09:08 Height 6 ft 1 in Weight 330 lb BMI 43.5 Intake Visit Reasons: Inj-Left knee Euflexxa #2 Intake Note: Donell is a 54 year old male who presents today for a second dose of the Euflexxa gel injection on his left knee. He states that he has gotten mild relief from the 1st injection. He continues with his home exercise program. Allergies Penicillins Allergy (Unknown, Verified 11/01/24 09:09) CHILDHOOD Medication List - Last Reconciled 11/01/24 by Mart Garcia MD albuterol sulfate 90 mcg/actuation 2 puffs inhalation Q4-6H PRN allopurinol 100 mg PO USEASDIRECTD cholecalciferol (vitamin D3) 2,000 mcg PO DAILY fluticasone propion-salmeterol 500-50 mcg/dose (Wixela Inhub) 1 inh inhalation DAILY losartan 100 mg PO DAILY montelukast 10 mg PO DAILY naproxen 500 mg PO BID omeprazole 20 mg PO BID pregabalin 100 mg PO BID sildenafil 100 mg PO DAILY PRN PFSH Medical History Lesion of throat Hypertension Sleep apnea Acid reflux Asthma Surgical History History of surgery of head S/P nasal surgery H/O carpal tunnel repair H/O shoulder surgery H/O elbow surgery History of ankle surgery Social History Are you a primary foster care social worker to a significant other at home: No Do you presently have visiting nurse or other home services: No Patient Tobacco Use Status: Never used Tobacco Current occupational status: disabled Physical Exam Vital Signs: BMI result Body Mass Index 43.5 Const Other: Well-nourished well-developed very friendly male awake alert and oriented x3 in no acute distress Extrem Other: Left knee examination shows a moderate effusion, palpable crepitus with range of motion, pain with range of motion, no instability Office Procedures AMB Joint Injection/Aspiration Joint Injection/Aspiration Primary Site: left knee Prep: site was prepped using aseptic technique Injected: 20 mg of (Euflexxa viscosupplementation) and 1% plain lidocaine Procedure: The patient tolerated the procedure well Coding 31634 - Large joint Procedure code (CPT) selection complete Assessment & Plan Assessment & Plan (1) Osteoarthritis of left knee: Code(s): M17.12 - Unilateral primary osteoarthritis, left knee Category: Medical Plan Donell presents with left knee pain due to osteoarthritis. The risks of the 2nd Euflexxa injection were discussed at length with the patient. The patient wished to proceed. The patient tolerated the injection well. Prior to the injection I aspirated 15 cc of clear fluid from his left knee. He will follow up next week as scheduled. Feel free to call me at any time should questions regarding his orthopedic management arise. Orders: Orders AMB Joint Injection/Aspiration Today M17.12 - Unilateral primary osteoarthritis, left knee Coding Level of Care Code Procedure Only Diagnoses Osteoarthritis of left knee M17.12 CPT Codes Coding - 52339 Large joint: 57460 - Large joint ([id number])
== END 2024-11-01 09:41 | disposition home or self-care (01) ==
LOC: HO.HOS 08:55
PROVIDERS: PCP Family Medicine; Visit Provider Orthopaedic Surgery
DX: M17.12 Unilateral primary osteoarthritis, left knee (principal)
CPT/HCPCS: 20610

== ENCOUNTER → 2024-11-01 08:54 | Outpatient (BNVA) | payer OTHER, SELFPAY | PROVIDERS: PCP Family Medicine; Visit Provider Orthopaedic Surgery | DX: M17.12 Unilateral primary osteoarthritis, left knee (principal) | CPT/HCPCS: 20610; J2003; J7323 ==

== ENCOUNTER 2024-11-09 08:42 | Outpatient (AMB) | payer OTHER, SELFPAY ==
--- NOTE | 2024-11-09 08:47 | A.OFFVIS_ITS ---
Vital Signs 11/09/24 08:50 Height 6 ft 1 in Weight 330 lb BMI 43.5 Intake Visit Reasons: Inj-Left knee Euflexxa #3 Intake Note: Donell is a 54 year old male who presents today for left knee Euflexxa gel injection #3. The patient states that he has gotten mild relief from the 1st 2 injections. He continues with his home exercise program. Allergies Penicillins Allergy (Unknown, Verified 11/09/24 08:50) CHILDHOOD Medication List - Last Reconciled 11/09/24 by Mart Garcia MD albuterol sulfate 90 mcg/actuation 2 puffs inhalation Q4-6H PRN allopurinol 100 mg PO USEASDIRECTD cholecalciferol (vitamin D3) 2,000 mcg PO DAILY fluticasone propion-salmeterol 500-50 mcg/dose (Wixela Inhub) 1 inh inhalation DAILY losartan 100 mg PO DAILY montelukast 10 mg PO DAILY naproxen 500 mg PO BID omeprazole 20 mg PO BID pregabalin 100 mg PO BID sildenafil 100 mg PO DAILY PRN PFSH Medical History Lesion of throat Hypertension Sleep apnea Acid reflux Asthma Surgical History History of surgery of head S/P nasal surgery H/O carpal tunnel repair H/O shoulder surgery H/O elbow surgery History of ankle surgery Social History Are you a primary aged or disabled care worker to a significant other at home: No Do you presently have visiting nurse or other home services: No Patient Tobacco Use Status: Never used Tobacco Current occupational status: disabled Physical Exam Vital Signs: BMI result Body Mass Index 43.5 Extrem Other: Left knee examination shows a mild effusion, palpable crepitus with range of motion, pain with range of motion, no instability Office Procedures AMB Joint Injection/Aspiration Joint Injection/Aspiration Primary Site: left knee Prep: site was prepped using aseptic technique Injected: 20 mg of (Euflexxa viscosupplementation) and 1% plain lidocaine Procedure: The patient tolerated the procedure well Coding 19045 - Large joint Procedure code (CPT) selection complete Assessment & Plan Assessment & Plan (1) Osteoarthritis of left knee: Code(s): M17.12 - Unilateral primary osteoarthritis, left knee Category: Medical Plan Donell presents with left knee pain due to osteoarthritis. The risks and benefits of a 3rd Euflexxa injection were discussed at length with the patient. The patient wished to proceed. He tolerated the injection well. He will continue with his home exercise program. He will contact me prior to his follow-up appointment in 3 months should any questions or concerns arise. Orders: Orders AMB Joint Injection/Aspiration Today M17.12 - Unilateral primary osteoarthritis, left knee Coding Level of Care Code Procedure Only Diagnoses Osteoarthritis of left knee M17.12 CPT Codes Coding - 90900 Large joint: 71411 - Large joint ([id number])
[2024-11-09 08:50] VITALS: BMI 43.5
== END 2024-11-09 09:00 | disposition home or self-care (01) ==
LOC: HO.HOS 08:43
PROVIDERS: PCP Family Medicine; Referring Provider Orthopaedic Surgery; Visit Provider Orthopaedic Surgery
DX: M17.12 Unilateral primary osteoarthritis, left knee (principal)
CPT/HCPCS: 20610

== ENCOUNTER → 2024-11-09 08:42 | Outpatient (BNVA) | payer OTHER, SELFPAY | PROVIDERS: PCP Family Medicine; Visit Provider Orthopaedic Surgery | DX: M17.12 Unilateral primary osteoarthritis, left knee (principal) | CPT/HCPCS: 20610; J2003; J7323 ==

== ENCOUNTER 2025-02-15 08:37 | Outpatient (AMB) | payer OTHER, SELFPAY ==
--- OUTSIDE RECORDS SUMMARY | 2025-01-10 09:00 | XMS_ITS | Encounter Summary ---
Author Name [facility] Organization [facility] Address [address] [place] [address] Care Team Providers Care Carbide Operator Name Role Phone TRACY OVALLES Primary Care [...] PART A December 08, 2013 PART A [id number] BRIGID RAMOS PATIENT MEDICARE (WNR) MEDICARE (M) PART A December 08, 2013 PART A [id number] [phone] BRIGID RAMOS PATIENT MEDICARE (WNR) MEDICARE (M) PART A December 08, 2013 PART A [id number] [phone] [id number] BRIGID RAMOS PATIENT MEDICARE (WNR) MEDICARE (M) PART A December 08, 2013 PART A [id number] BRIGID RAMOS PATIENT Selected Encounter This section includes the information on record at [place] for the Encounter. Date/Time Encounter Type Encounter Description Reason Provider Source Jan 10, 2025 01:00 PM OFFICE O/P EST LOW 20 MIN PRIMARY CARE/MEDICINE ICD-10-CM M65.352 Trigger finger, left little finger TRACY OVALLES Encounter Template Text not used by [place] Assessments - Encounter Diagnoses This section includes the primary and secondary diagnoses documented for the Encounter. Date/Time Primary/Secondary Diagnosis Diagnosis Name Provider Source Jan 10, 2025 01:41 PM PRIMARY Trigger finger, left little finger TRACY OVALLES Jan 10, 2025 01:41 PM SECONDARY Trigger finger, left middle finger TRACY OVALLES STEFAN Jan 10, 2025 01:41 PM SECONDARY Trigger finger, left ring finger TRACY OVALLES [place] Plan of Treatment: Future Appointments (+ 6 months) and Future Tests (+/- 45 days) The Plan of Treatment section includes [facility] care activities for the [facility] This section includes future appointments and future orders which are active, pending or scheduled. Future Appointments This section includes appointments that were scheduled to occur 6 months from the date of the Encounter, up to a maximum of 20 appointments. The data comes from all [place] treatment facilities. Appointment Date/Time Appointment Type Appointme nt Facility Name Jan 24, 2025 08:30 AM AMBULATORY - MEDICINE [facility] [place] Jan 25, 2025 10:00 AM [facility] [place] Feb 22, 2025 10:00 AM AMBULATORY - MEDICINE [facility] [place] [facility] Mar 02, 2025 11:30 AM AMBULATORY - NONE [facility] [place] Apr 12, 2025 10:00 AM AMBULATORY - [facility]IC[facility] Active, Pending, and Scheduled Orders This section includes a listing of several types of active, pending, and scheduled orders, including clinic medications orders, diagnostic test orders, procedure orders and consult orders; where the start date of the order is 45 days before the date of the Encounter or 45 days after the date of theEncounter. The data comes from all [place] treatment facilities. Test Date/Time Test Type Test Details Facility Name Jan 10, 2025 01:42 PM Consult Order [facility] Cons Child Care Associate Teacher's Choice [facility] [place] Social History: Smoking Status (Most [...] 31, 2024 11:30 AM VA-TOBACCO NEVER USED [place] Tobacco Use History This section includes a history of the smoking, or tobacco-related health factors, that were collected on or before the date of the Encounter. The data comes from the [place] facility where the Encounter took place. Date/Time Smoking Status/Tobacco Use Comment F acility May 26, 2022 10:00 AM VA-TOBACCO NEVER USED [facility] May 21, 2021 03:00 PM VA-TOBACCO NEVER USED [facility] Aug 08, 2019 11:05 AM VA-TOBACCO NEVER USED [facility] Jun 28, 2018 03:14 PM VA-TOBACCO NEVER USED [facility] May 28, 2017 08:56 AM LIFETIME NON-TOBACCO USER [facility] Advance Directives: All historical and current Section [...] Mar 22, 2018 ADVANCE DIRECTIVE JASWANT DICKINSON [facility] Encounter Notes: All associated encounter notes This section contains the clinical notes associated to the Encounter. Date/Time Encounter Note(s) Provider Source Jan 10, 2025 01:37 PM ACCOUNTING OF DISC LOSURES NOTE: LOCAL TITLE: STATE PRESCRIPTION DRUG MONITORING PROGRAM STANDARD TITLE: ACCOUNTING OF DISCLOSURES NOTE DATE OF NOTE: JAN 10, 2025@13:37:01 ENTRY DATE: JAN 10, 2025@13:37:01 AUTHOR: AUDRA TERRAZAS EXP COSIGNER: TRACY OVALLES URGENCY: STATUS: COMPLETED This PDMP query was submitted by Audra Terrazas on behalf of Tracy Ovalles MD. The clinical justification for this PDMP query is to review controlled substances prescribed outside of the [facility], and any additional information that may become available, as an important component of standard clinical care, and in accordance with [facility] policy. Patient information was shared with the PDMP [employer] [place]. The VA prescriber, for which I am a delegate, will be alerted of these PDMP findings through co-signature of this progress note. No prescription(s) for controlled substances outside the VA were found in the last 90 days. /dheeraj/ AUDRA TERRAZAS LPN PACT 10 Signed: 01/10/2025 13:37 /dheeraj/ TRACY OVALLES MD Primary Care Physician Cosigned: 01/10/2025 14:14 AUDRA TERRAZAS [place] Jan 10, 2025 01:16 PM PREVENTIVE MEDICIN E NURSING NOTE: LOCAL TITLE: CLINICAL REMINDERS/NURSING STANDARD TITLE: PREVENTIVE MEDICINE NURSING NOTE DATE OF NOTE: JAN 10, 2025@13:16 ENTRY DATE: JAN 10, 2025@13:16:43 AUTHOR: AUDRA TERRAZAS EXP COSIGNER: URGENCY: STATUS: COMPLETED Advance Directive Screen MH AD: Patient has an Advance Directive on file at this [facility]. No updates are needed at this time. [...] Not worried about housing near future The [facility] reports the following: Within the past 12 months, you worried whether your food would run out before you got money to buy more. Never true Within the past 12 months, the food you bought just didn't last and you didn't have money to get more. Never true Colonoscopy GAP Reminder: Recommendations are needed in the clinical reminder system following the patient's most recent colorectal cancer screening/surveillance test (Colonoscopy, Sigmoidoscopy or CT Colonography) Setting a new reminder date is deferred. Reason: results hold Influenza Immunization: No influenza vaccination was received during the recent influenza season. COVID-19 Immunization: Refused Moderna Monovalent COVID-19 vaccine Immunization: COVID-19 (MODERNA), MRNA, LNP-S, PF, 50 MCG/0.5 ML (AGES 12+ YEARS) Refusal Reason: PATIENT DECISION Patient refuses all immunization(s) in the COVID-19 group Date Documented: 01/10/25 13:17 Herpes Zoster (Shingles) Vaccine: The patient declines to receive the recommended dose of zoster (shingles) vaccine. Immunization: ZOSTER RECOMBINANT Refusal Reason: PATIENT DECISION Patient refuses all immunization(s) in the ZOSTER group Date Documented: 01/10/25 13:18 RHS Screen: RHS Screen Session Format: Face [...] you were unable to say no Never The HITS tool (items 1-4 above) is [place] copyright protected by Howard Lovelace MD, and the user has full rights to use it throughout the [place] system. PRIMARY SCREEN RESULT: The Primary Screen [...] to learning were observed or identified. /dheeraj/ AUDRA TERRAZAS LPN PACT 10 Signed: 01/10/2025 13:19 AUDRA TERRAZAS [place] Jan 10, 2025 12:58 PM PHYSICIAN NOTE: LOCAL TITLE: NOTE STANDARD TITLE: PHYSICIAN NOTE DATE OF NOTE: JAN 10, 2025@12:58 ENTRY DATE: JAN 10, 2025@12:58:26 AUTHOR: TRACY OVALLES COSIGNER: URGENCY: STATUS: COMPLETED HISTORY OF PRESENT ILLNESS: COLBYMACHO HARTLEY is a 54 yo MALE who presents at the [facility] with concerns about left hand trigger fingers. I have symptoms from trigger finger on my left hand in 3 digits (middle, ring and pinky). It's the same exact same issues and symptoms that my right hand had when I had that same surgery on it. I need have it addressed fay because I have severe pain and zero strength please. Active problems - Computerized Problem List is [...] TWO TABLETS BY MOUTH THREE TIMES Refills: 2 Last : 12/24/24 DAILY NEEDED Expr : 03/25/25 Indication: FOR PAIN 2) ALBUTEROL 90MCG (CFC-F) 200D ORAL INHL Qty: ACTIVE (S) Issue: 08/30/24 3 for 90 days Sig: INHALE 2 PUFFS BY MOUTH Refills: 1 Last : 02/16/25 FOUR TIMES DAILY NEEDED FOR SHORTNESS OF Expr : 08/31/25 BREATH 3) ALLOPURINOL 100MG TAB Qty: 450 for 90 days ACTIVE Issue: 12/21/24 Sig: TAKE TWO TABLETS BY MOUTH EVERY MORNING Refills: 3 Last : 12/21/24 AND TAKE THREE TABLETS EVERY EVENING FOR Expr : 12/22/25 Indication: GOUT 4) CLOMIPHENE CITRATE 50MG TAB Qty: 30 for 60 ACTIVE (S) Issue: 12/08/24 days Sig: TAKE ONE-HALF TABLET BY MOUTH ONCE Refills: 0 Last : 01/27/25 DAILY Expr : 12/09/25 5) LOSARTAN 100MG TAB Qty: 90 for 90 days Sig: ACTIVE Issue: 07/18/24 TAKE ONE TABLET BY MOUTH ONCE DAILY FOR Refills: 2 Last : 10/06/24 BLOOD PRESSURE/HEART Expr : 07/19/25 6) MONTELUKAST NA 10MG TAB Qty: 90 for 90 days ACTIVE Issue: 08/30/24 Sig: TAKE ONE TABLET BY MOUTH AT BEDTIME Refills: 2 Last : 01/01/25 Indication: FOR CONTROLLER MEDICATION FOR Expr : 08/31/25 ASTHMA 7) NAPROXEN 500MG TAB Qty: 60 for 30 days Sig: ACTIVE Issue: 03/01/24 TAKE ONE TABLET BY MOUTH TWICE DAILY TAKE Refills: 0 Last : 10/06/24 WITH FOOD Expr : 03/02/25 Indication: FOR INFLAMMATION 8) ROSUVASTATIN CA 40MG TAB Qty: 45 for 90 days ACTIVE (S) Issue: 09/09/24 Sig: TAKE ONE-HALF TABLET BY MOUTH AT Refills: 1 Last : 03/27/25 BEDTIME FOR CHOLESTEROL Expr : 09/10/25 Indication: FOR HIGH CHOLESTEROL ALLERGIES: ========= PENICILLIN, MUSHROOMS, MELOXICAM LAB HISTORY: [...] 91 24 1.05 141 4.4 104 26 CBC TREND Collection DT Spec WBC RBC [...] SERUM 19 38 0.7 61 7.1 4.1 Collection DT Spec TSH 05/12/2024 07:47 SERUM 4.05 HISTORY: PERIOD OF SERVICE - [facility] [employer] FROM May TO Aug COMBAT SERVICE INDICATED: No VITAL SIGNS: Blood Pressure 147/90 (01/10/2025 13:15) Pulse 67 (01/10/2025 13:15) Respiration 18 (01/10/2025 13:15) Pulse Oximetry 97% (01/10/2025 13:15) Temperature 96.9 F [36.1 C] (01/10/2025 13:15) Pain 0 (01/10/2025 13:15) Height 73 in [185.4 cm] (01/10/2025 13:15) Weight 351.2 lb [159.30 kg] (01/10/2025 13:15) BMI BMI: 46.4 REVIEW OF SYSTEMS: MUSCULOSKELETAL: + left hand trigger fingers EXAMINATION: GENERAL: WD/WN in NAD HEENT: Moist mucosa NECK: Supple EXTREMITIES: Left Hand: + trigger fingers of 3rd, 4th, & 5th digits, unable to straighten them without manually pulling them straight ASSESSMENT/PLAN: 1. Left Hand Trigger Fingers: digits 3,4, and 5 (middle, ring and pinky), vet requesting corrective treatment, will refer to [facility] (preferred by vet), he is in severe pain and has no pharmacologist strength in his left hand, (had trigger finger surgery on right hand 3rd digit in 2018), will Rx dilaudid 2mg Q4-6 prn pain, #20, 0RF's FOLLOW UP: 7 weeks - HTN/Lipids/WT - FBW prior ========= UPCOMING APPOINTMENTS: 01/25/2025 10:00 NHM VVC DENTAL 04/12/2025 10:00 AZM OPTOMETRY 1 PM No barriers; Patient understands and agrees to current treatment plan. If pt has any questions, concerns, or changes in current health status he/she will call or come in to the [facility]. HIV Screening: Patient has been offered HIV testing and has declined. I have explained that HIV testing is recommended for all adults, even if all risk factors are absent. The patient was educated on the risk of delayed screening. Medication Reconciliation: Outpatient: Has the patient been [...] FACILITY ALLERGY/ADR -------- CLNCL/HLTH MADDY REPT EFF [id number] [facility] [place] [facility] MELOXICAM [facility] [place] [facility] MUSHROOM[facility] [place] Med Recon Irineo (Tool #1) INCLUDED IN THIS LIST: Alphabetical list of active outpatient prescriptions dispensed from this VA (local) and dispensed from another [place] or [facility] facility (remote) as well as inpatient orders (local pending and active), local clinic medications, locally documented non-VA medications, and local prescriptions that have or been discontinued in the past 90 days. Non-VA Meds Last Documented On: Data not found NOTE The display of VA prescriptions dispensed from another [place] or [facility] facility (remote) is limited to active outpatient prescription entries matched to National Drug File at the originating site and may not include some items such as investigational drugs, compounds, etc. NOT INCLUDED IN THIS LIST: Medications self-entered by the patient into personal health records (i.e. [employer]) are NOT included in this list. Non-VA medications documented outside this VA, remote inpatient orders (regardless of status) and remote clinic medications are NOT included in this list. The patient and provider must always discuss medications the patient is taking, regardless of where the medication was dispensed or obtained. ------ OUTPT ACETAMINOPHEN 500MG TAB (Status = Active) TAKE TWO TABLETS BY MOUTH THREE TIMES DAILY NEEDED FOR PAIN Rx# [id number] Last Released: 12/22/24 Qty/Days Supply: 200/ Rx Expiration Date: 03/25/25 Refills Remainin Indication: FOR PAIN OUTPT ALBUTEROL 90MCG (CFC-F) 200D ORAL INHL (Status = Active/Suspended) INHALE 2 PUFFS BY MOUTH FOUR TIMES DAILY NEEDED FOR SHORTNESS OF BREATH Rx# [id number] Last Released: 11/09/24 Qty/Days Supply: Rx Expiration Date: 08/31/25 Refills Remainin OUTPT ALLOPURINOL 100MG TAB (Status = Active) TAKE TWO TABLETS BY MOUTH EVERY MORNING AND TAKE THREE TABLETS EVERY EVENING FOR GOUT Rx# [id number] Last Released: 12/22/24 Qty/Days Supply: Rx Expiration Date: 12/22/25 Refills Remainin Indication: GOUT OUTPT CLOMIPHENE CITRATE 50MG TAB (Status = ) TAKE ONE-HALF TABLET BY MOUTH ONCE DAILY Rx# [id number] Last Released: 02/12/24 Qty/Days Supply: Rx Expiration Date: 11/03/24 Refills Remainin OUTPT CLOMIPHENE CITRATE 50MG TAB (Status = Active/Suspended) TAKE ONE-HALF TABLET BY MOUTH ONCE DAILY Rx# [id number] Last Released: 12/12/24 Qty/Days Supply: Rx Expiration Date: 12/09/25 Refills Remainin OUTPT COLON ELECTROLYTE LAVAGE PWD FOR SOLN (Status = ) TAKE DIRECTED BY MOUTH ONE TIME FOR EMPTYING OF THE BOWEL ACCORDING TO INSTRUCTIONS FROM PRESCRIBER - DISSOLVE CONTENTS BEFORE DRINKING Rx# [id number] Last Released: 09/28/24 Qty/Days Supply: 09/08 Rx Expiration Date: 10/27/24 Refills Remainin Indication: FOR EMPTYING OF THE BOWEL OUTPT LOSARTAN 100MG TAB (Status = Active) TAKE ONE TABLET BY MOUTH ONCE DAILY FOR BLOOD PRESSURE/HEART Rx# [id number] Last Released: 10/06/24 Qty/Days Supply: Rx Expiration Date: 07/19/25 Refills Remainin OUTPT MONTELUKAST NA 10MG TAB (Status = Active) TAKE ONE TABLET BY MOUTH AT BEDTIME FOR CONTROLLER MEDICATION FOR ASTHMA Rx# [id number] Last Released: 12/22/24 Qty/Days Supply: Rx Expiration Date: 08/31/25 Refills Remainin Indication: FOR CONTROLLER MEDICATION FOR ASTHMA OUTPT NAPROXEN 500MG TAB (Status = Active) TAKE ONE TABLET BY MOUTH TWICE DAILY TAKE WITH FOOD Rx# [id number] Last Released: 10/06/24 Qty/Days Supply: Rx Expiration Date: 03/02/25 Refills Remainin Indication: FOR INFLAMMATION OUTPT ROSUVASTATIN CA 40MG TAB (Status = Active/Suspended) TAKE ONE-HALF TABLET BY MOUTH AT BEDTIME FOR CHOLESTEROL Rx# [id number] Last Released: 12/19/24 Qty/Days Supply: Rx Expiration Date: 09/10/25 Refills Remainin Indication: FOR HIGH CHOLESTEROL ------ SUPPLIES ------ HTN Assess for Elevated BP>=140/90: The patient's blood pressure is usually adequately controlled. No medication changes are indicated at this time. /es/ TRACY OVALLES MD Primary Care Physician Signed: 01/10/2025 13:41 TRACY OVALLES
--- NOTE | 2025-02-15 08:41 | A.OFFVIS_ITS ---
Vital Signs 02/15/25 08:45 Height 6 ft 1 in Weight 330 lb BMI 43.5 Intake Visit Reasons: Left knee pain Intake Note: Donell is a 54 year old male who presents with left knee pain. He describes his left knee pain as sharp in nature. He has had cortisone injections in the past which gave him minimal relief. He has also had Euflexxa injections which gave him good relief. He has tried physical therapy exercises which aggravated his pain. He has also tried Tylenol and anti-inflammatory medicines which gave him minimal relief. At this point his left knee pain is interfering with his activities of daily living and his ability to sleep well through the night. Allergies Penicillins Allergy (Unknown, Verified 02/15/25 08:46) CHILDHOOD Medication List - Last Reconciled 02/15/25 by Mart Garcia MD albuterol sulfate 90 mcg/actuation 2 puffs inhalation Q4-6H PRN allopurinol 100 mg PO USEASDIRECTD cholecalciferol (vitamin D3) 2,000 mcg PO DAILY fluticasone propion-salmeterol 500-50 mcg/dose (Wixela Inhub) 1 inh inhalation DAILY losartan 100 mg PO DAILY montelukast 10 mg PO DAILY naproxen 500 mg PO BID omeprazole 20 mg PO BID pregabalin 100 mg PO BID sildenafil 100 mg PO DAILY PRN PFSH Medical History Lesion of throat Hypertension Sleep apnea Acid reflux Asthma Surgical History History of surgery of head S/P nasal surgery H/O carpal tunnel repair H/O shoulder surgery H/O elbow surgery History of ankle surgery Social History Are you a primary medicare coordinator to a significant other at home: No Do you presently have visiting nurse or other home services: No Patient Tobacco Use Status: Never used Tobacco Current occupational status: disabled Physical Exam Vital Signs: BMI result Body Mass Index 43.5 Const Other: Well-nourished well-developed very friendly male awake alert and oriented x3 in no acute distress Extrem Other: Bilateral lower extremity examination shows good capillary refill, no skin lesions noted, normal sensation light touch Left knee examination shows a minimal effusion, palpable crepitus with range of motion, pain with range of motion, no instability Assessment & Plan Assessment & Plan (1) Left knee pain: Code(s): M25.562 - Pain in left knee Category: Medical (2) Osteoarthritis of left knee: Code(s): M17.12 - Unilateral primary osteoarthritis, left knee Category: Medical Plan Mr. Tracy presents with left knee pain due to osteoarthritis. I had a lengthy discussion with the patient regarding the treatment options. He wishes to hold off on further surgery for as long as possible. I agree with this plan. I will see if this insurance company will cover a another series of Euflexxa viscosupplementation injections. I will see him back once the injections are available. Feel free to call me at any time should questions regarding his orthopedic management arise. Well-nourished well-developed very friendly male awake alert and oriented x3 in no acute distress Coding Level of Care Code Est Pt Level 3 (89807) Complex EM visit Add On G2211 Diagnoses Left knee pain M25.562 Osteoarthritis of left knee M17.12
[2025-02-15 08:45] VITALS: BMI 43.5
--- OUTSIDE RECORDS SUMMARY | 2025-02-15 08:51 | XMS_ITS | Encounter Summary ---
Author Organization [facility] Address [address] [place] [address] Care Team Providers Care Candy Roller Name Role Phone Tracy Rivas MD Primary Care Provider [phone] Encounter Details Date Type Department Care Team (Late st Contact Info) Description 10/14/[address] [facility] - Main Lab 299 [facility] [place] [phone] Terrell Acosta MD [address] [address] Encounter for screening for malignant neoplasm of colon Social History Tobacco Use Types Packs/Day Years Used Date Smoking Tobacco: Never Assessed Sex and Gender Information Value Date Recorded Sex Assigned at Not on file Legal Sex Male 10:15 AM EST Gender Identity Not on file Sexual Orientation Not on file documented as of this encounter Plan of Treatment Not on file documented as of this encounter Procedures Procedure Name Priority Date/Time Associated Diagnosis Comments TISSUE EXAM Routine 10/13/2024 Encounter for screening for malignant neoplasm of colon documented in this encounter Results * Tissue Exam (10/13/2024) Final Diagnosis A. Colon, cecum polyp: - Tubular adenoma. 10/17/2024 8:40 AM EDT [facility] Clinical Information Screening for colorectal malignant neoplasm 10/17/2024 8:40 AM EDT [facility] Gross Description A. Colon, cecum polyp: Labeled cecum polyp . Received in formalin is a 0.4 cm irregular grant mucosal tissue fragment which is wrapped in paper and submitted in toto in one cassette, one piece, multiple levels on one slide. RAHAT 10/17/2024 8:40 AM EDT [facility] Disclaimer Unless otherwise specified, all tissue is 10% NB formalin fixed and paraffin embedded. 10/17/2024 8:40 AM EDT [facility] Tissue Colon structure / Unknown 10/13/2024 10/14/2024 7:45 AM EST us Terrell Acosta MD LAB PATHOLOGY ORDERABLES Alicia rosado Result [facility] [address] [place] [address], documented in this encounter Visit Diagnoses Diagnosis Encounter for screening for malignant neoplasm of colon documented in this encounter Care Teams Candy Roller Relationship Specialty Start Date End Date Tracy Rivas MD [address] [place] [address] PCP - General Family Medicine 01/18/18 documented as of this encounter
== END 2025-02-15 08:54 | disposition home or self-care (01) ==
LOC: HO.HOS 08:38
PROVIDERS: PCP Family Medicine; Visit Provider Orthopaedic Surgery
DX: M25.562 Pain in left knee (principal); M17.12 Unilateral primary osteoarthritis, left knee
CPT/HCPCS: 99213; G2211

== ENCOUNTER → 2025-02-15 08:37 | Outpatient (BNVA) | payer OTHER, SELFPAY | PROVIDERS: PCP Family Medicine; Visit Provider Orthopaedic Surgery | DX: M25.562 Pain in left knee (principal); M17.12 Unilateral primary osteoarthritis, left knee | CPT/HCPCS: 99212 ==

== ENCOUNTER 2025-03-20 08:17 | Outpatient (AMB) | payer OTHER, SELFPAY ==
--- NOTE | 2025-03-20 08:20 | MHC.OFFVIS ---
Vital Signs 03/20/25 08:25 Height 6 ft 1 in Weight 330 lb BMI 43.5 Intake Visit Reasons: New prob-LT MF, RF, and SM trigger finger pain Intake Note: Donell is a 54 year old ambidextrous hand dominant male who presents today for a new problem visit complaining of left middle, ring, & small trigger finger pain. Patient reports locking and catching back in October, with associated occasional numbness and tingling of the whole hand. Patient states he had right middle finger trigger release about 5 years ago. He says the injection did not help. Patient is interested in discussing surgery rather than an injection. Allergies Penicillins Allergy (Unknown, Verified 03/20/25 08:25) CHILDHOOD HPI HPI New prob-LT MF, RF, and SM trigger finger pain: Details: Donell is a 54 year old ambidextrous hand dominant male who presents today for a new problem visit complaining of left middle, ring, & small trigger finger pain. Patient reports locking and catching back in October, with associated occasional numbness and tingling of the whole hand. Patient states he had right middle finger trigger release about 5 years ago. He says the injection did not help. Patient is interested in discussing surgery rather than an injection. [facility] Medical History Lesion of throat Hypertension Sleep apnea Acid reflux Asthma Surgical History History of surgery of head S/P nasal surgery H/O carpal tunnel repair H/O shoulder surgery H/O elbow surgery History of ankle surgery Social History (Updated 03/20/25 @ 08:23 by LISA Hernandez) Are you a primary progressive care nurse to a significant other at home: No Do you presently have visiting nurse or other home services: No Patient Tobacco Use Status: Never used Tobacco Current occupational status: disabled Current occupation: ambidextrous Review of Systems Const All systems reviewed & are unremarkable except as noted in HPI and below Physical Exam Vital Signs: BMI result Body Mass Index 43.5 Extrem Other: Patient is alert, oriented, and in no acute distress. Neuro: Normal sensation of the tips of all digits of the left hand at this time Vascular: Cap refill brisk Pain: Tenderness to palpation of the A1 pulleys of the left middle, ring, small fingers Pain associated with locking and catching of the digits ROM: There is visible and palpable locking and catching of the left middle, ring, small fingers Patient is able to flex and extend all other digits of the left hand fully and without difficulty Skin: No lacerations or abrasions. General: No ecchymosis, erythema, or evidence of infection. Psych: Appears grossly normal Affect normal Attitude cooperative Assessment & Plan Assessment & Plan (1) Trigger finger, left middle finger: Code(s): M65.332 - Trigger finger, left middle finger Category: Medical (2) Trigger finger, left ring finger: Code(s): M65.342 - Trigger finger, left ring finger Category: Medical (3) Trigger finger, left little finger: Code(s): M65.352 - Trigger finger, left little finger Category: Medical Plan 1. Trigger finger, left middle finger 2. Trigger finger, left ring finger 3. Trigger finger, left small finger I educated the patient about the condition. I discussed both operative and nonoperative treatment options. The patient would like to proceed with surgery. The risks and benefits of operative treatment were discussed with the patient and the patient wishes to proceed with surgery. These risks include, but are not limited to, risk of damage to blood vessels, nerves, tendons, infection, recurrence, incomplete relief of preoperative symptoms, persistent pain, possible need for further surgery, and the risks associated with regional blocks and/or anesthesia. Plan is to take the patient to the operating room at some point in the next few weeks for the following procedures: 1. Left middle finger trigger release under local 2. Left ring finger trigger release under local 3. Left small finger trigger release under local All of the preoperative paperwork including the consent was discussed today. All of the patient's questions were answered in the clinic today. The patient understands that they will be in contact with our regional vice president surgical sales to discuss scheduling their procedure. Patient denies diabetes, blood thinners, asthma, heart issues, lung issues, kidney issues, or current smoking. Coding Level of Care Code Est Pt Level 4 (75000) Diagnoses Trigger finger, left middle finger M65.332 Trigger finger, left ring finger M65.342 Trigger finger, left little finger M65.352
[2025-03-20 08:25] VITALS: BMI 43.5
== END 2025-03-20 08:41 | disposition home or self-care (01) ==
LOC: HO.HOS 08:18
PROVIDERS: PCP Family Medicine
DX: M65.332 Trigger finger, left middle finger (principal); M65.342 Trigger finger, left ring finger; M65.352 Trigger finger, left little finger
CPT/HCPCS: 99214

== ENCOUNTER → 2025-03-20 08:17 | Outpatient (BNVA) | payer OTHER, SELFPAY | PROVIDERS: PCP Family Medicine | DX: M65.332 Trigger finger, left middle finger (principal); M65.342 Trigger finger, left ring finger; M65.352 Trigger finger, left little finger | CPT/HCPCS: 99212 ==

== ENCOUNTER 2025-04-20 09:37 | Day surgery (SDC) | payer OTHER, SELFPAY ==
--- OUTSIDE RECORDS SUMMARY | 2025-03-23 13:12 | XMS_ITS | Encounter Summary ---
Author Organization [facility] Address [address] [place] [address] Care Team Providers Care Rn Geriatric Name Role Phone Tracy Rivas MD Primary Care Provider [phone] Encounter Details Date Type Department Care Team (Late st Contact Info) Description 10/14/2024 Lab Requisition [facility] - Main Lab 299 [facility] [place] [phone] Terrell Acosta MD [address] [address] Encounter for screening for malignant neoplasm of [...] - Tubular adenoma. 10/17/2024 8:40 AM EDT [facility] Clinical Information Screening for colorectal malignant neoplasm 10/17/2024 8:40 AM EDT [facility] Gross Description A. Colon, cecum polyp: Labeled cecum polyp . Received in formalin is a 0.4 cm irregular grant mucosal tissue fragment which is wrapped in paper and submitted in toto in one cassette, one piece, multiple levels on one slide. RAHAT 10/17/2024 8:40 AM EDT [facility] Disclaimer Unless otherwise specified, all tissue is 10% NB formalin fixed and paraffin embedded. 10/17/2024 8:40 AM EDT [facility] Tissue Colon structure / Unknown 10/13/2024 10/14/2024 7:45 AM EST us Terrell Acosta MD LAB PATHOLOGY ORDERABLES Alicia rosado Result [facility] [address] [place] [address], documented in this encounter Visit Diagnoses Diagnosis Encounter for screening for malignant neoplasm of colon documented in this encounter Care Teams Rn Geriatric Relationship Specialty Start Date End Date Tracy Rivas MD PCP - General Family Medicine 01/18/18 documented as of this encounter
[2025-04-20 10:08] VITALS: BP 159/90; PULSE 85; RESP 18; TEMP 37; O2SAT 95; BMI 47.4
--- NOTE | 2025-04-20 12:31 | MHC.SHP ---
Pre-Procedural Eval Section A - 24 Hr Update-Section A only Date of Service: 04/20/25 The patient is an INPATIENT: No Changes since office visit: No Cold of Flu in the past 2 weeks, No New Medical Problems, No Changes in Medication and No Patient answered all questions The patient has been examined within 24 hours of the surgical procedure. The History & Physical has been completed within 30 days and I have reviewed it.: Yes Section B - Complete if H&P > 30 days Chief Complaint: middle,ring,small finger trigger release Allergies: Allergies Allergy/AdvReac Type Severity Reaction Status Date / Time Penicillins Allergy Unknown CHILDHOOD Verified 04/20/25 10:23 Plan I have reviewed the history and physical and performed a pertinent physical examination on my patient. No changes have occurred unless specified. Time Spent With Patient Time: Total time managing care of this patient today ____ minutes.
--- NOTE | 2025-04-20 12:31 | W.PM.OPN ---
Operative Note Operative Note Date of Service: 04/20/25 Narrative: Operative Note Preop diagnosis: 1. 1. Left middle finger Trigger finger 2. Left ring finger trigger finger 3. Left small finger trigger finger Postop diagnosis: Same Procedure: 1. Left middle finger A1 lemuel release 2. Left ring finger A1 lemuel release 3. Left small finger A1 lemuel release Surgeon: Peace Joel MD Behavior Management Specialist: eTra KRISHNAN Anesthesia: local block using 1% lidocaine with epinephrine Findings: No locking or catching after A1 lemuel release. He did have a slight catch in the middle finger when I passively brought it into full flexion and then back into extension, but no actual locking. EBL: Less than 5 mL Tourniquet time: None Specimens: None Complications: None Disposition: Brought to recovery room in stable condition Plan: Follow-up for 10-14 days for wound check and suture removal Indications: The patient is 54 years old, with left middle finger, ring finger and small finger trigger fingers that have been unresponsive to nonoperative management. The risks and benefits of operative treatment including but not limited to risk of damage to blood vessels, nerves, tendons, infection, persistent pain, persistent symptoms, recurrence or possible need for additional surgery were discussed with the patient and the patient wishes to proceed with surgery. Procedure: Once consent was obtained a local block was performed in the preop area using a combination of 1% lidocaine with epinephrine. The patient was then brought back to the operating suite and placed on the operative table in supine position. The left upper extremity was prepped and draped in a standard surgical fashion. Once assured that we had a good block, a 1.5 cm oblique incision was made centered over the A1 lemuel of the left middle finger . The incision was made through the skin to the subcutaneous tissues using a #15 blade. Careful dissection was made down to the level of the A1 lemuel using tenotomy scissors, with care being taken to protect the nearby neurovascular structures. A longitudinal incision was made in the A1 lemuel 1st using a #15 blade, then using tenotomy scissors under direct visualization. The A1 lemuel was noted to be thickened. Following our A1 lemuel release, we no longer saw any locking , though he did have a slight catch at full flexion, of the digit with flexion and extension. Once assured that we had a good block, a 1.5 cm oblique incision was made centered over the A1 lemuel of the left ring finger . The incision was made through the skin to the subcutaneous tissues using a #15 blade. Careful dissection was made down to the level of the A1 lemuel using tenotomy scissors, with care being taken to protect the nearby neurovascular structures. A longitudinal incision was made in the A1 lemuel 1st using a #15 blade, then using tenotomy scissors under direct visualization. The A1 lemuel was noted to be thickened. Following our A1 lemuel release, we no longer saw any locking or catching of the digit with flexion and extension. Once assured that we had a good block, a 1.5 cm oblique incision was made centered over the A1 lemuel of the left small finger . The incision was made through the skin to the subcutaneous tissues using a #15 blade. Careful dissection was made down to the level of the A1 lemuel using tenotomy scissors, with care being taken to protect the nearby neurovascular structures. A longitudinal incision was made in the A1 lemuel 1st using a #15 blade, then using tenotomy scissors under direct visualization. The A1 lemuel was noted to be thickened. Following our A1 lemuel release, we no longer saw any locking or catching of the digit with flexion and extension. Once satisfied with our A1 lemuel release the wound was copiously irrigated with normal saline and hemostasis was obtained with a brief period of local pressure. The skin edges were reapproximated with some 5.0 nylon suture material and a sterile dressing was applied. The patient appears to have tolerated the procedure well and with no complications. All digits were well vascularized at the conclusion of the case.
[2025-04-20 13:58] VITALS: BP 139/73; PULSE 95; O2SAT 96
== END 2025-04-20 14:12 | disposition home or self-care (01) ==
PROVIDERS: PCP Family Medicine; Visit Provider Orthopaedic Surgery
PROC: (CPT 26055; principal; 2025-04-20 11:40)
DX: M65.332 Trigger finger, left middle finger (principal); M65.342 Trigger finger, left ring finger; M65.352 Trigger finger, left little finger; I10 Essential (primary) hypertension; J45.909 Unspecified asthma, uncomplicated; G47.30 Sleep apnea, unspecified; Z88.0 Allergy status to penicillin; Z98.890 Other specified postprocedural states
CPT/HCPCS: 26055 ×3; J0165; J2003

== ENCOUNTER → 2025-04-20 09:37 | Outpatient (BNV) | payer OTHER, SELFPAY | PROVIDERS: PCP Family Medicine; Visit Provider Orthopaedic Surgery | DX: M65.332 Trigger finger, left middle finger (principal); M65.342 Trigger finger, left ring finger; M65.352 Trigger finger, left little finger | CPT/HCPCS: 26055 ==

== ENCOUNTER 2025-05-03 08:21 | Outpatient (AMB) | payer OTHER, SELFPAY ==
--- NOTE | 2025-05-03 08:32 | A.OFFVIS_ITS ---
Intake Visit Reasons: PO-Lt MF/RF/SF Trigger Release 04/20/25 Intake Note: Donell is a 54 year old ambidextrous man who presents today post operatively status post undergoing a left middle finger, ring finger and small finger A1 lemuel release, DOS: 04/20/[address] Peace Joel. Denies discharge or pus. Patient reports he has been in a lot of pain after his procedure. He says his pain is a 7/10 and describes it as a deep shooting pain in between the 3rd, 4th, and 5th hand left digits into the incision. Expresses his 4th and 5th hand digits no longer have triggered however he states the middle finger has not been pleasant. Unable to take NSAIDs for pain, he has completed the script prescribed to him but is having continued pain. Describes the left middle finger is very tight. Allergies Penicillins Allergy (Unknown, Verified 05/03/25 08:37) CHILDHOOD HPI HPI PO-Lt MF/RF/SF Trigger Release 04/20/25: Details: Donell is a 54 year old ambidextrous man who presents today post operatively status post undergoing a left middle finger, ring finger and small finger A1 lemuel release, DOS: 04/20/[address] Peace Joel. Denies discharge or pus. Patient reports he has been in a lot of pain after his procedure. He says his pain is a 7/10 and describes it as a deep shooting pain in between the 3rd, 4th, and 5th hand left digits into the incision. Expresses his 4th and 5th hand digits no longer have triggered however he states the middle finger has not been pleasant. Unable to take NSAIDs for pain, he has completed the script prescribed to him but is having continued pain. Describes the left middle finger is very tight. [facility] Medical History Lesion of throat Hypertension Sleep apnea Acid reflux Asthma Surgical History (Updated 05/03/25 @ 08:39 by CARYN Huang) Status post trigger finger release (~04/20/25) History of surgery of head S/P nasal surgery H/O carpal tunnel repair H/O shoulder surgery H/O elbow surgery History of ankle surgery Social History Are you a primary critical care unit nurse to a significant other at home: No Do you presently have visiting nurse or other home services: No Patient Tobacco Use Status: Never used Tobacco Current occupational status: disabled Current occupation: ambidextrous Review of Systems Const All systems reviewed & are unremarkable except as noted in HPI and below Physical Exam Extrem Other: Patient is alert, oriented, and in no acute distress. Neuro: Normal sensation of the tips of all digits of the left hand at this time Vascular: Cap refill brisk Pain: Tenderness to palpation of the incisions over the A1 pulleys of the left middle, ring, small fingers Pain associated with locking and catching of the digits ROM: There is no further visible and palpable locking and catching of the left middle, ring, small fingers However, left middle finger does experience significant stiffness when attempting to actively bring the finger into a full flexed position, is able to be passively flex to a full closed fist with encouragement Patient is able to flex and extend all other digits of the left hand fully and without difficulty Skin: No lacerations or abrasions. General: No ecchymosis, erythema, or evidence of infection. Psych: Appears grossly normal Affect normal Attitude cooperative Assessment & Plan Assessment & Plan (1) Trigger finger, left middle finger: Code(s): M65.332 - Trigger finger, left middle finger Category: Medical (2) Trigger finger, left ring finger: Code(s): M65.342 - Trigger finger, left ring finger Category: Medical (3) Trigger finger, left little finger: Code(s): M65.352 - Trigger finger, left little finger Category: Medical Plan 1. Status post left middle, ring, small finger trigger releases DOS 04/20/2025 With good symptom resolution postoperatively Patient appears to be recovering well from his surgery Patient is educated about the typical recovery course At this time, due to the stiffness that he appears to be experiencing in the left middle finger, referral to occupational therapy as placed for range of motion of the left hand No under water activities for one-week, 2 lb weight limit in the left hand for 2 weeks Patient will follow-up with me in 4-6 weeks for a [id number] check Sutures removed, Steri-Strips applied without issue Patient understands this and is amenable to this plan Orders: Orders OT Evaluation and Treatment Today M65.332 - Trigger finger, left middle finger, M65.342 - Trigger finger, left ring finger, M65.352 - Trigger finger, left little finger Coding Level of Care Code Global (65570) Diagnoses Trigger finger, left middle finger M65.332 Trigger finger, left ring finger M65.342 Trigger finger, left little finger M65.352
--- OUTSIDE RECORDS SUMMARY | 2025-05-03 09:09 | XMS_ITS | Encounter Summary ---
Author Organization [facility] Address [address] [place] [address] Care Team Providers Care Manager Of Transportation Name Role Phone Tracy Rivas MD Primary Care Provider [phone] Encounter Details Date Type Department Care Team (Late st Contact Info) Description 10/14/2024 Lab Requisition [facility] - Main Lab 299 [facility] [place] [phone] Terrell Acosta MD [address] [address] Encounter for screening for malignant neoplasm of [...] - Tubular adenoma. 10/17/2024 8:40 AM EDT [facility] Clinical Information Screening for colorectal malignant neoplasm 10/17/2024 8:40 AM EDT [facility] Gross Description A. Colon, cecum polyp: Labeled cecum polyp . Received in formalin is a 0.4 cm irregular grant mucosal tissue fragment which is wrapped in paper and submitted in toto in one cassette, one piece, multiple levels on one slide. RAHAT 10/17/2024 8:40 AM EDT [facility] Disclaimer Unless otherwise specified, all tissue is 10% NB formalin fixed and paraffin embedded. 10/17/2024 8:40 AM EDT [facility] Tissue Colon structure / Unknown 10/13/2024 10/14/2024 7:45 AM EST us Terrell Acosta MD LAB PATHOLOGY ORDERABLES Alicia rosado Result [facility] [address] [place] [address], documented in this encounter Visit Diagnoses Diagnosis Encounter for screening for malignant neoplasm of colon documented in this encounter Care Teams Manager Of Transportation Relationship Specialty Start Date End Date Tracy Rivas MD PCP - General Family Medicine 01/18/18 documented as of this encounter
--- OUTSIDE RECORDS SUMMARY | 2025-05-03 09:09 | XMS_ITS | Clinical Summary ---
Author Organization [facility] 299 [facility] Address [address] [place] [address] Phone Care Team Providers Care Group Leader Semiconductor Processing Name Role Phone Tracy Rivas MD Primary Care Provider [phone] Social History Tobacco Use Types Packs/Day Years Used Date Smoking Tobacco: Never Assessed Sex and Gender Information Value Date Recorded Sex Assigned at Not on file Legal Sex Male 10:15 AM EST Gender Identity Not on file Sexual Orientation Not on file Plan of Treatment Health Maintenance Due Date Last Done Comments Hepatitis B Vaccines (2 of 3 - 19+ 3-dose series) 05/04/2018 04/06/2018 Zoster Vaccines (1 of 2) 2022 Depression Screening 08/10/2024 Cholesterol Screening (Lipid Panel) 09/23/2024 HIV Screening 09/23/2024 Hepatitis C Screening 09/23/2024 Hypertension/CHF/CAD Annual BMP Blood Test 09/23/2024 Social Influencers of Health Screening 09/23/2024 COVID-19 Vaccine ( season) 2025 Influenza Vaccine (#1) 2025 , 05/26/2022, 05/04/2020, Additional history exists DTaP,Tdap,and Td Vaccines (5 - Td or Tdap) 05/12/2033 05/12/2023, 02/22/2013, 08/10/2003, Additional history exists Colorectal Cancer Screening: Colonoscopy 10/13/2034 10/13/2024 RSV Immunization Adult Patients (1 - 1-dose 75+ series) 2047 MMR Vaccines Aged Out 04/06/2018 No longer eligi ble based on patient's age to complete this topic Pneumococcal Vaccine: 50+ Years Completed 05/12/2023, 05/10/2009, 05/08/2009 HIB Vaccines Aged Out No longer eligi ble based on patient's age to complete this topic HPV Vaccines Aged Out No longer eligi ble based on patient's age to complete this topic Hepatitis A Vaccines Aged Out No long er eligible based on patient's age to complete this topic IPV Vaccines Aged Out No longer eligi ble based on patient's age to complete this topic Meningococcal ACWY Vaccine Aged Out N o longer eligible based on patient's age to complete this topic Meningococcal B Vaccine Aged Out No l onger eligible based on patient's age to complete this topic RSV Immunization Patients Under 20 months Aged Out No longer eligible based on patient's age to complete this topic Varicella Vaccines Aged Out No longer eligible based on patient's age to complete this topic Procedures Procedure Name Priority Date/Time Associated Diagnosis Comments EXTERNAL COLONOSCOPY REPORT Routine 10/13/2024 2:06 PM EST from Last 3 Months or Most Recently Relevant to Health Maintenance Results * External Colonoscopy Report (10/13/2024 2:06 PM EST) Anatomical Region Laterality Modality Endoscopy us Historical Provider GI~PROCEDURE ORDERABLES F inal Result from Last 3 Months or Most Recently Relevant to Health Maintenance Insurance MEDICARE Care Teams Group Leader Semiconductor Processing Relationship Specialty Start Date End Date Tracy Rivas MD PCP - General Family Medicine 01/18/18
== END 2025-05-03 09:07 | disposition home or self-care (01) ==
LOC: HO.HOS 08:22
PROVIDERS: PCP Family Medicine
DX: M65.332 Trigger finger, left middle finger (principal); M65.342 Trigger finger, left ring finger; M65.352 Trigger finger, left little finger
CPT/HCPCS: 99024

== ENCOUNTER → 2025-05-03 08:21 | Outpatient (BNVA) | payer OTHER, SELFPAY | PROVIDERS: PCP Family Medicine | DX: M65.332 Trigger finger, left middle finger (principal); M65.342 Trigger finger, left ring finger; M65.352 Trigger finger, left little finger | CPT/HCPCS: 99212 ==

== ENCOUNTER 2025-07-03 09:41 | Outpatient (AMB) | payer OTHER, SELFPAY ==
[2025-07-03 09:49] VITALS: BMI 47.4
--- NOTE | 2025-07-03 09:49 | MHC.OFFVIS ---
Vital Signs 07/03/25 09:49 Height 6 ft 1 in Weight 359 lb BMI 47.4 Intake Visit Reasons: PO-Lt MF/RF/SF Trigger Release 04/20/25-ROM check Intake Note: Donell is a 55 year old ambidextrous male who presents today Post-Operatively for a ROM Check status post Left Middle, Ring, & Small Trigger Fingers Release, DOS: 04/20/[address] Joel. At their last visit, a referral to Occupational Therapy was placed due to left middle finger stiffness. He was advised to avoid under water activities for one-week and to remain in a 2 lb weight limit for 2 weeks. Today, patient reports he is doing well. He denies any concerns today. Allergies Penicillins Allergy (Unknown, Verified 05/03/25 08:37) CHILDHOOD HPI HPI PO-Lt MF/RF/SF Trigger Release 04/20/25-ROM check: Details: Donell is a 55 year old ambidextrous male who presents today Post-Operatively for a ROM Check status post Left Middle, Ring, & Small Trigger Fingers Release, DOS: 04/20/[address] Joel. At their last visit, a referral to Occupational Therapy was placed due to left middle finger stiffness. He was advised to avoid under water activities for one-week and to remain in a 2 lb weight limit for 2 weeks. Today, patient reports he is doing well. He denies any concerns today, other than occasional mild swelling at the bases of the left middle and ring fingers. Denies ongoing locking and catching. [facility] Medical History Lesion of throat Hypertension Sleep apnea Acid reflux Asthma Surgical History (Updated 05/03/25 @ 08:39 by CARYN Huang) Status post trigger finger release (~04/20/25) History of surgery of head S/P nasal surgery H/O carpal tunnel repair H/O shoulder surgery H/O elbow surgery History of ankle surgery Social History Are you a primary patient care technician to a significant other at home: No Do you presently have visiting nurse or other home services: No Patient Tobacco Use Status: Never used Tobacco Current occupational status: disabled Current occupation: ambidextrous Review of Systems Const All systems reviewed & are unremarkable except as noted in HPI and below Physical Exam Vital Signs: BMI result Body Mass Index 47.4 Extrem Other: Patient is alert, oriented, and in no acute distress. Neuro: Normal sensation of the tips of all digits of the left hand at this time Vascular: Cap refill brisk Pain: No Tenderness to palpation of the incisions over the A1 pulleys of the left middle, ring, small fingers Pain associated with locking and catching of the digits ROM: There is no further visible and palpable locking and catching of the left middle, ring, small fingers Patient is able to make a closed fist and extend all digits of the left hand fully and without difficulty Skin: No lacerations or abrasions. General: No ecchymosis, erythema, or evidence of infection. Psych: Appears grossly normal Affect normal Attitude cooperative Assessment & Plan Assessment & Plan (1) Trigger finger, left middle finger: Code(s): M65.332 - Trigger finger, left middle finger Category: Medical (2) Trigger finger, left ring finger: Code(s): M65.342 - Trigger finger, left ring finger Category: Medical (3) Trigger finger, left little finger: Code(s): M65.352 - Trigger finger, left little finger Category: Medical Plan 1. Status post left middle, ring, small finger trigger releases DOS 04/20/2025 With good symptom resolution postoperatively Patient appears to be recovering well postoperatively Patient is educated about the typical recovery course Patient may be in a gradual return back to full normal lifting and activity at this time Patient appears to be recovering very well, and requires no further acute follow-up with us postoperatively Patient is educated and worrisome signs and symptoms, and should call us if they experience any of these, including but not limited to redness, swelling, increased pain, and discharge Patient understands this and is amenable to this plan Follow-up as needed Coding Level of Care Code Global (46962) Diagnoses Trigger finger, left middle finger M65.332 Trigger finger, left ring finger M65.342 Trigger finger, left little finger M65.352
--- OUTSIDE RECORDS SUMMARY | 2025-07-03 11:21 | XMS_ITS | Encounter Summary ---
Author Organization [facility] Address [address] [place] [address] Care Team Providers Care Marine Resource Economist Name Role Phone Tracy Rivas MD Primary Care Provider [phone] Encounter Details Date Type Department Care Team (Late st Contact Info) Description 10/14/2024 Lab Requisition [facility] - Main Lab 299 [facility] [place] [phone] Terrell Acosta MD [address] [address] Encounter for screening for malignant neoplasm of [...] - Tubular adenoma. 10/17/2024 8:40 AM EDT [facility] Clinical Information Screening for colorectal malignant neoplasm 10/17/2024 8:40 AM EDT [facility] Gross Description A. Colon, cecum polyp: Labeled cecum polyp . Received in formalin is a 0.4 cm irregular grant mucosal tissue fragment which is wrapped in paper and submitted in toto in one cassette, one piece, multiple levels on one slide. RAHAT 10/17/2024 8:40 AM EDT [facility] Disclaimer Unless otherwise specified, all tissue is 10% NB formalin fixed and paraffin embedded. 10/17/2024 8:40 AM EDT [facility] Tissue Colon structure / Unknown 10/13/2024 10/14/2024 7:45 AM EST us Terrell Acosta MD LAB PATHOLOGY ORDERABLES Alicia rosado Result [facility] [address] [place] [address], documented in this encounter Visit Diagnoses Diagnosis Encounter for screening for malignant neoplasm of colon documented in this encounter Care Teams Marine Resource Economist Relationship Specialty Start Date End Date Tracy Rivas MD PCP - General Family Medicine 01/18/18 documented as of this encounter
--- OUTSIDE RECORDS SUMMARY | 2025-07-03 11:21 | XMS_ITS | Clinical Summary ---
Author Organization [facility] 299 [facility] Address [address] [place] [address] Phone Care Team Providers Care Taper And Floater Name Role Phone Tracy Rivas MD Primary Care Provider [phone] Social History Tobacco Use Types Packs/Day Years [...] 3 - 19+ 3-dose series) 05/04/2018 04/06/2018 RSV Immunization Adult Patients (1 - Risk 50-74 years 1-dose series) 2022 Zoster Vaccines (1 of 2) 2022 Depression Screening 08/10/2024 Cholesterol Screening (Lipid Panel) 09/23/2024 HIV Screening 09/23/2024 Hepatitis C Screening 09/23/2024 Hypertension/CHF/CAD Annual BMP Blood Test 09/23/2024 Social Influencers of Health Screening 09/23/2024 COVID-19 Vaccine ( - season) 2025 Influenza Vaccine (#1) 2025 , 05/26/2022, 05/04/2020, Additional history exists DTaP,Tdap,and Td Vaccines (5 - Td or Tdap) 05/12/2033 05/12/2023, 02/22/2013, 08/10/2003, Additional history exists Colorectal Cancer Screening: Colonoscopy 10/13/2034 10/13/2024 MMR Vaccines Aged Out 04/06/2018 No longer [...] to Health Maintenance Insurance MEDICARE Care Teams Taper And Floater Relationship Specialty Start Date End Date Tracy Rivas MD PCP - General Family Medicine 01/18/18
== END 2025-07-03 10:08 | disposition home or self-care (01) ==
LOC: HO.HOS 09:42
PROVIDERS: PCP Family Medicine
DX: M65.332 Trigger finger, left middle finger (principal); M65.342 Trigger finger, left ring finger; M65.352 Trigger finger, left little finger
CPT/HCPCS: 99024

== ENCOUNTER → 2025-07-03 09:41 | Outpatient (BNVA) | payer OTHER, SELFPAY | PROVIDERS: PCP Family Medicine | DX: M65.332 Trigger finger, left middle finger (principal); M65.342 Trigger finger, left ring finger; M65.352 Trigger finger, left little finger; Z98.890 Other specified postprocedural states | CPT/HCPCS: 99212 ==

== ENCOUNTER 2025-07-04 12:33 | Outpatient (AMB) | payer OTHER, SELFPAY ==
--- NOTE | 2025-07-04 12:36 | A.OFFVIS_ITS ---
Vital Signs 07/04/25 12:38 Height 6 ft 1 in Weight 359 lb BMI 47.4 Intake Visit Reasons: inj - LEFT KNEE EUFLEXXA #1 Intake Note: Donell is a 55 year old male who presents today for an injection in his left knee, Euflexxa #1. He describes his left knee pain as sharp in nature. He has failed the last 3 months of conservative treatment. Allergies Penicillins Allergy (Unknown, Verified 07/04/25 12:38) CHILDHOOD Medication List - Last Reconciled 07/05/25 by Mart Garcia MD albuterol sulfate 90 mcg/actuation 2 puffs inhalation Q4-6H PRN allopurinol 100 mg PO USEASDIRECTD cholecalciferol (vitamin D3) 2,000 mcg PO DAILY fluticasone propion-salmeterol 500-50 mcg/dose (Wixela Inhub) 1 inh inhalation DAILY losartan 100 mg PO DAILY montelukast 10 mg PO DAILY naproxen 500 mg PO BID omeprazole 20 mg PO BID pregabalin 100 mg PO BID sildenafil 100 mg PO DAILY PRN PFSH Medical History Lesion of throat Hypertension Sleep apnea Acid reflux Asthma Surgical History Status post trigger finger release (~04/20/25) History of surgery of head S/P nasal surgery H/O carpal tunnel repair H/O shoulder surgery H/O elbow surgery History of ankle surgery Social History Are you a primary critical care unit manager to a significant other at home: No Do you presently have visiting nurse or other home services: No Patient Tobacco Use Status: Never used Tobacco Current occupational status: disabled Current occupation: ambidextrous Physical Exam Vital Signs: BMI result Body Mass Index 47.4 Extrem Other: Left knee examination shows a minimal effusion, palpable crepitus with range of motion, pain with range of motion, no instability Office Procedures AMB Joint Injection/Aspiration Joint Injection/Aspiration Primary Site: Left Knee Prep: site was prepped using aseptic technique Injected: 20 mg of, Euflexxa, with 3 mL of and 1% plain Lidocaine Procedure: The patient tolerated the procedure well Coding 37624 - Large joint Procedure code (CPT) selection complete Results Reviewed Results Reviewed: X-rays of the patient's left knee taken previously show joint space narrowing, subchondral sclerosis, no acute bony abnormalities Assessment & Plan Assessment & Plan (1) Osteoarthritis of left knee: Code(s): M17.12 - Unilateral primary osteoarthritis, left knee Category: Medical Plan Donell presents with left knee pain due to osteoarthritis. The risks and benefits of the 1st Euflexxa injection were discussed at length with the patient. The patient wished to proceed. He tolerated the injection well. He will continue with his home exercise program. He will follow up next week as scheduled. Feel free to call me at any time should questions regarding his orthopedic management arise. I spent 20 minutes in reviewing the patient's records and imaging studies, seeing the patient and documenting in the medical record. Orders: Orders AMB Joint Injection/Aspiration 07/04/25 M17.12 - Unilateral primary osteoart hritis, left knee Coding Level of Care Code Est Pt Level 3 (10381) Complex visit Add On G2211 Diagnoses Osteoarthritis of left knee M17.12 CPT Codes Coding - 07704 Large joint: 53265 - Large joint ([id number])
[2025-07-04 12:38] VITALS: BMI 47.4
--- OUTSIDE RECORDS SUMMARY | 2025-07-04 16:06 | XMS_ITS | Clinical Summary ---
Author Organization [facility] 299 [facility] Address [address] [place] [address] Phone Care Team Providers Care Research Director Name Role Phone Tracy Rivas MD Primary Care Provider [phone] Social History Tobacco Use Types Packs/Day Years [...] to Health Maintenance Insurance MEDICARE Care Teams Research Director Relationship Specialty Start Date End Date Tracy Rivas MD PCP - General Family Medicine 01/18/18
--- OUTSIDE RECORDS SUMMARY | 2025-07-04 16:06 | XMS_ITS | Encounter Summary ---
Author Organization [facility] Address [address] [place] [address] Care Team Providers Care Food Preparation Kitchen Aide Name Role Phone Tracy Rivas MD Primary Care Provider [phone] Encounter Details Date Type Department Care Team (Late st Contact Info) Description 10/14/2024 Lab Requisition [facility] - Main Lab 299 [facility] [place] [employer] [place] [phone] Terrell Acosta MD [address] [address] Encounter for screening for malignant neoplasm of [...] - Tubular adenoma. 10/17/2024 8:40 AM EDT [facility] Clinical Information Screening for colorectal malignant neoplasm 10/17/2024 8:40 AM EDT [facility] Gross Description A. Colon, cecum polyp: Labeled cecum polyp . Received in formalin is a 0.4 cm irregular grant mucosal tissue fragment which is wrapped in paper and submitted in toto in one cassette, one piece, multiple levels on one slide. RAHAT 10/17/2024 8:40 AM EDT [facility] Disclaimer Unless otherwise specified, all tissue is 10% NB formalin fixed and paraffin embedded. 10/17/2024 8:40 AM EDT [facility] Tissue Colon structure / Unknown 10/13/2024 10/14/2024 7:45 AM EST us Terrell Acosta MD LAB PATHOLOGY ORDERABLES Alicia rosado Result [facility] [address] [place] [address], documented in this encounter Visit Diagnoses Diagnosis Encounter for screening for malignant neoplasm of colon documented in this encounter Care Teams Food Preparation Kitchen Aide Relationship Specialty Start Date End Date Tracy Rivas MD PCP - General Family Medicine 01/18/18 documented as of this encounter
== END 2025-07-04 13:00 | disposition home or self-care (01) ==
LOC: HO.HOS 12:33
PROVIDERS: PCP Family Medicine; Referring Provider Orthopaedic Surgery; Visit Provider Orthopaedic Surgery
DX: M17.12 Unilateral primary osteoarthritis, left knee (principal)
CPT/HCPCS: 20610; 99213

== ENCOUNTER → 2025-07-04 12:33 | Outpatient (BNVA) | payer OTHER, SELFPAY | PROVIDERS: PCP Family Medicine; Visit Provider Orthopaedic Surgery | DX: M17.12 Unilateral primary osteoarthritis, left knee (principal) | CPT/HCPCS: 20610; J2003; J7323 ==

== ENCOUNTER 2025-07-12 09:23 | Outpatient (AMB) | payer OTHER, SELFPAY ==
[2025-07-12 09:27] VITALS: BMI 47.4
--- NOTE | 2025-07-12 09:27 | A.OFFVIS_ITS ---
Vital Signs 07/12/25 09:27 Height 6 ft 1 in Weight 359 lb BMI 47.4 Intake Visit Reasons: INJ LEFT KNEE EUFLEXXA #2 Intake Note: Donell is a 55 year old male who presents today for an injection in his left knee, Euflexxa #2. He states that he has gotten mild relief from the 1st injection. He continues with his home exercise program. Allergies Penicillins Allergy (Unknown, Verified 07/12/25 09:27) CHILDHOOD Medication List - Last Reconciled 07/12/25 by Mart Garcia MD albuterol sulfate 90 mcg/actuation 2 puffs inhalation Q4-6H PRN allopurinol 100 mg PO USEASDIRECTD cholecalciferol (vitamin D3) 2,000 mcg PO DAILY fluticasone propion-salmeterol 500-50 mcg/dose (Wixela Inhub) 1 inh inhalation DAILY losartan 100 mg PO DAILY montelukast 10 mg PO DAILY naproxen 500 mg PO BID omeprazole 20 mg PO BID pregabalin 100 mg PO BID sildenafil 100 mg PO DAILY PRN PFSH Medical History Lesion of throat Hypertension Sleep apnea Acid reflux Asthma Surgical History Status post trigger finger release (~04/20/25) History of surgery of head S/P nasal surgery H/O carpal tunnel repair H/O shoulder surgery H/O elbow surgery History of ankle surgery Social History Are you a primary home health aide caregiver to a significant other at home: No Do you presently have visiting nurse or other home services: No Patient Tobacco Use Status: Never used Tobacco Current occupational status: disabled Current occupation: ambidextrous Physical Exam Vital Signs: BMI result Body Mass Index 47.4 Extrem Other: Left knee examination shows a mild effusion, palpable crepitus with range of motion, pain with range of motion, no instability Office Procedures AMB Joint Injection/Aspiration Joint Injection/Aspiration Primary Site: Left Knee Prep: site was prepped using aseptic technique Injected: 20 mg of, Euflexxa, with 3 mL of and 1% plain Lidocaine Procedure: The patient tolerated the procedure well Coding 00440 - Large joint Procedure code (CPT) selection complete Assessment & Plan Assessment & Plan (1) Osteoarthritis of left knee: Code(s): M17.12 - Unilateral primary osteoarthritis, left knee Category: Medical Plan Donell presents with left knee pain due to osteoarthritis. The risks and benefits of a 2nd Euflexxa injection were discussed at length with the patient. The patient wished to proceed. He tolerated the injection well. He will continue with his home exercise program. He will follow up next week as scheduled. Feel free to call me at any time should questions regarding his orthopedic management arise. Orders: Orders AMB Joint Injection/Aspiration Today M17.12 - Unilateral primary osteoarthritis, left knee Coding Level of Care Code Procedure Only Diagnoses Osteoarthritis of left knee M17.12 CPT Codes Coding - 25728 Large joint: 94230 - Large joint ([id number])
--- OUTSIDE RECORDS SUMMARY | 2025-07-12 10:14 | XMS_ITS | Encounter Summary ---
Author Organization [facility] Address [address] [place] [address] Care Team Providers Care Core Cutter Name Role Phone Tracy Rivas MD Primary Care Provider [phone] Encounter Details Date Type Department Care Team (Late st Contact Info) Description 10/14/2024 Lab Requisition [facility] - Main Lab 299 [facility] [place] [phone] Terrell Acosta MD [address] [address] Encounter for screening for malignant neoplasm of [...] - Tubular adenoma. 10/17/2024 8:40 AM EDT [facility] at 0840 EDT Clinical Information Screening for colorectal malignant neoplasm 10/17/2024 8:40 AM EDT [facility] Gross Description A. Colon, cecum polyp: Labeled cecum polyp . Received in formalin is a 0.4 cm irregular grant mucosal tissue fragment which is wrapped in paper and submitted in toto in one cassette, one piece, multiple levels on one slide. RAHAT 10/17/2024 8:40 AM EDT [facility] Disclaimer Unless otherwise specified, all tissue is 10% NB formalin fixed and paraffin embedded. 10/17/2024 8:40 AM EDT [facility] Tissue Colon structure / Unknown 10/13/2024 10/14/2024 7:45 AM EST us Terrell Acosta MD LAB PATHOLOGY ORDERABLES Alicia rosado Result [facility] [address] [place] [address], documented in this encounter Visit Diagnoses Diagnosis Encounter for screening for malignant neoplasm of colon documented in this encounter Care Teams Core Cutter Relationship Specialty Start Date End Date Tracy Rivas MD PCP - General Family Medicine 01/18/18 documented as of this encounter
--- OUTSIDE RECORDS SUMMARY | 2025-07-12 10:14 | XMS_ITS | Clinical Summary ---
Author Organization [facility] 299 [facility] Address [address] [place] [address] Phone Care Team Providers Care Aircraft Cabin Cleaner Name Role Phone Tracy Rivas MD Primary Care Provider [phone] Social History Tobacco Use Types Packs/Day Years [...] to Health Maintenance Insurance MEDICARE Care Teams Aircraft Cabin Cleaner Relationship Specialty Start Date End Date Tracy Rivas MD PCP - General Family Medicine 01/18/18
== END 2025-07-12 09:51 | disposition home or self-care (01) ==
LOC: HO.HOS 09:24
PROVIDERS: PCP Family Medicine; Referring Provider Orthopaedic Surgery; Visit Provider Orthopaedic Surgery
DX: M17.12 Unilateral primary osteoarthritis, left knee (principal)
CPT/HCPCS: 20610

== ENCOUNTER → 2025-07-12 09:23 | Outpatient (BNVA) | payer OTHER, SELFPAY | PROVIDERS: PCP Family Medicine; Visit Provider Orthopaedic Surgery | DX: M17.12 Unilateral primary osteoarthritis, left knee (principal) | CPT/HCPCS: 20610; J2003; J7323 ==

== ENCOUNTER 2025-07-19 09:34 | Outpatient (AMB) | payer OTHER, SELFPAY ==
--- NOTE | 2025-07-19 09:38 | A.OFFVIS_ITS ---
Intake Visit Reasons: INJ- LEFT KNEE EUFLEXXA #3 Intake Note: Donell is a 55 year old male who presents today for an injection in his left knee, Euflexxa #3. He states that he has gotten mild relief from the 1st 2 injections. He continues with his home exercise program. Allergies Penicillins Allergy (Unknown, Verified 07/12/25 09:27) CHILDHOOD Medication List - Last Reconciled 07/19/25 by Mart Garcia MD albuterol sulfate 90 mcg/actuation 2 puffs inhalation Q4-6H PRN allopurinol 100 mg PO USEASDIRECTD cholecalciferol (vitamin D3) 2,000 mcg PO DAILY fluticasone propion-salmeterol 500-50 mcg/dose (Wixela Inhub) 1 inh inhalation DAILY losartan 100 mg PO DAILY montelukast 10 mg PO DAILY naproxen 500 mg PO BID omeprazole 20 mg PO BID pregabalin 100 mg PO BID sildenafil 100 mg PO DAILY PRN PFSH Medical History Lesion of throat Hypertension Sleep apnea Acid reflux Asthma Surgical History Status post trigger finger release (~04/20/25) History of surgery of head S/P nasal surgery H/O carpal tunnel repair H/O shoulder surgery H/O elbow surgery History of ankle surgery Social History Are you a primary physician assistant primary care to a significant other at home: No Do you presently have visiting nurse or other home services: No Patient Tobacco Use Status: Never used Tobacco Current occupational status: disabled Current occupation: ambidextrous Physical Exam Extrem Other: Left knee examination shows a mild effusion, palpable crepitus with range of motion, pain with range of motion, no instability Office Procedures AMB Joint Injection/Aspiration Joint Injection/Aspiration Primary Site: Left Knee Prep: site was prepped using aseptic technique Injected: 20 mg of, Euflexxa, with 3 mL of and 1% plain Lidocaine Procedure: The patient tolerated the procedure well Coding 78466 - Large joint Procedure code (CPT) selection complete Assessment & Plan Assessment & Plan (1) Osteoarthritis of left knee: Code(s): M17.12 - Unilateral primary osteoarthritis, left knee Category: Medical Plan Donell presents with left knee pain due to osteoarthritis. The risks and benefits of a 3rd Euflexxa injection were discussed at length with the patient. The patient wished to proceed. He tolerated the injection well. He will continue with his home exercise program. He will contact me prior to his follow-up appointment in 3 months should any questions or concerns arise. Feel free to call me at any time should questions regarding his orthopedic management arise. Orders: Orders AMB Joint Injection/Aspiration Today M17.12 - Unilateral primary osteoarthritis, left knee Coding Level of Care Code Procedure Only Diagnoses Osteoarthritis of left knee M17.12 CPT Codes Coding - 13857 Large joint: 79224 - Large joint ([id number])
== END 2025-07-19 09:55 | disposition home or self-care (01) ==
LOC: HO.HOS 09:35
PROVIDERS: PCP Family Medicine; Referring Provider Orthopaedic Surgery; Visit Provider Orthopaedic Surgery
DX: M17.12 Unilateral primary osteoarthritis, left knee (principal)
CPT/HCPCS: 20610

== ENCOUNTER → 2025-07-19 09:34 | Outpatient (BNVA) | payer OTHER, SELFPAY | PROVIDERS: PCP Family Medicine; Visit Provider Orthopaedic Surgery | DX: M17.12 Unilateral primary osteoarthritis, left knee (principal) | CPT/HCPCS: 20610; J2003; J7323 ==